=== PATIENT | female | born 1945 | race Caucasian/White ===

== ENCOUNTER 2023-06-21 14:21 | Inpatient (IN) | payer MEDICARE, SELFPAY ==
[2023-06-21] VITALS (11 sets, daily range): BP systolic 106–190; BP diastolic 45–119; BMI 29.8
--- NOTE | 2023-06-21 08:29 | ED.GENMED ---
History of Present Illness
General
Chief Complaint: Breathing Problem
Source: patient
Exam Limitations: none
Time Seen by Provider: 06/21/23 08:15
Nursing documentation reviewed up to this point in time: agreed with
Travel History
Have you had any contact with someone who has COVID-19?: No
Do you have any symptoms of coronavirus? Fever > 100 degrees, chills, cough, shortness of breath, sore throat, loss of taste or smell, muscle aches, or headache?: Yes
Symptoms:: sob
History of Present Illness
History of Present Illness:
77 yo female presents to the emergency department c/o shortness of breath. History of COPD and HOCM. Taking Camzyos for hcm. She complains of feeling fatigued and short of breath. It is worse when she walks.
Past History
Past History
ED Past Medical History: Arrthythmia (Atrial fibrillation), CHF, COPD, GERD, HTN, Valvular disease (Endocarditis) and Other
ED Past Surgical History: Appendectomy, Cardiac and Other
Social History
Tobacco: Non-smoker
Alcohol: None
Drug: None
Review of Systems
Review of Systems
Allergies reviewed?: Yes
All Other Systems: Not applicable
Constitutional: Reports no symptoms
EENT: Reports no symptoms
Respiratory: Reports trouble breathing
Cardiac: Reports no symptoms
ABD/GI: Reports no symptoms
: Reports no symptoms
Musculoskeletal: Reports no symptoms
Skin: Reports no symptoms
Neurological: Reports no symptoms
Endocrine: Reports no symptoms
Hematologic/Lymphatic: Reports no symptoms
Psychiatric: Reports no symptoms
Phy Exam
Physical Exam
Physical Exam:
Physical Exam
General: afebrile
Neck: supple. no meningeal signs. normal posterior pharynx
Heart: s1/s2 regular rate and rhythm, no murmur. equal radial
pulses.
HEENT: Pupils equal round reactive to light, EOMI
Lungs: Mild respiratory distress. Rales at bases bilaterally
Abdomen: normal bowel sounds. not tender. no CVAT
Neuro: alert and oriented. no focal neurological deficits cranial nerves II through XII intact
Skin: no rash
Psychiatric: well kept. interactive and cooperative
Extremities: no edema. no calf tenderness. negative homans. good distal pulses
Scores
Heart Failure Risk
Heart Failure Risk Score: Yes
History of Stroke or TIA: No
History of intubation for respiratory distress: No
Heart rate on ED arrival >/= 110: No
SaO2 <90% on arrival on room air: Yes
HR >/=110 during 3min walk test (or too ill to perform test): Yes
ECG has acute ischemic changes: No
Urea >/=12mmol/L (BUN 33.6mg/dL): No
Serum CO2>/=35mmol/L: No
Troponin I or T elevated to NM Level (0.4mg/dL): No
NT-proBNP >/=5,000ng/L (5,000pg/ml): Yes
HF Risk Score: 4
Admission Status: HIGH RISK 26.1% Consider SNF treatment or admission to hospital
Course
Orders/Labs/Results
Orders:
Orders
06/21/23 08:09
Electrocardiogram (*1) Urgent
Reason for Study: Shortness of Breath
EKG- Treatment ONCE
06/21/23 08:27
Cardiac Monitoring- Treatment ONCE
IV Insert/Care/Rem.- Treatment PRN
Ipratropium/Albuterol Sulfate [Duoneb] 3 ml INHALATION R NOW ONE
06/21/23 08:28
Electrocardiogram (*1) Stat
Reason for Study: Other
Other Reason for Exam: pneumonia
CR Chest - 2 Views Urgent
Comment:
Reason For Exam: short of breath 1 week
06/21/23 08:30
Complete Blood Count/With Diff Urgent
Comprehensive Metabolic Panel Urgent
NT-proBNP Urgent
Troponin I Urgent
06/21/23 11:26
Furosemide [Lasix] 40 mg IV NOW STA
06/21/23 13:48
Admit/Transfer Patient As Directed
Co-Sign Provider:
Level of Care: Inpatient admission
Assign to:: Telemetry
Physician / Group: Brown
Diagnosis: CHF
Reason for Telemetry: Acute Heart Failure
Date to Stop Telemetry: 06/24/23
Time to Stop Telemetry: 11:00
Reason for Hospitalization: see progress note
Expected length of stay greater than two midnights?: Yes
ELOS- Estimated Length of Stay in days: 3
I certify the patient meets the requirements for IP care: Yes
06/21/23 13:50
Code Status As Directed
Resuscitation Status: Full Code
06/24/23 11:00
DC Protocol for Telemetry ONCE
Abnormal Lab Results
06/21/23
08:30
MCHC 32.2 L g/dL
(33.0-37.0)
RDW 14.6 H %
(11.5-14.5)
Absolute Lymphs (auto) 0.5 L 10^3/uL
(1.2-3.4)
Neutrophils % 83.8 H %
(42.2-75.2)
Lymphocytes % 7.4 L %
(20.5-51.1)
BUN 25 H mg/dl
(7-17)
Glucose 125 H mg/dl
(70-99)
06/21/23 08:30
06/21/23 08:30
Vital Signs
Initial and Last Documented VS:
Initial Vital Signs
Temp Pulse Resp BP Pulse Ox
97.9 F 63 18 176/68 94
06/21/23 08:02 06/21/23 08:02 06/21/23 08:02 06/21/23 08:02 06/21/23 08:02
Last Documented Vital Signs
Temp Pulse Resp BP Pulse Ox
97.9 F 65 25 120/45 94
06/21/23 08:02 06/21/23 14:30 06/21/23 14:30 06/21/23 14:00 06/21/23 08:02
*EKG
Interpreted by ED Provider?: Yes
EKG Intrepretation Date: 06/21/23
EKG Intrepretation Time: 08:50
Interpretation: abnormal
Comparison EKG: no changes
Heart Rate: 56
Rate: bradycardiac
Rhythm: sinus
[place]: normal axis
Interval: normal interval
QRS Pattern: normal QRS
Ischemia: non-specific ST changes
*[employer] Interpretation
Rate: normal
Interpretation: normal
Heart Rate: 60
Rhythm: sinus
*Critical Care Note
Total Time (30-74mins, 75-104mins- exclusive of procedures): Not Applicable
Patient Management
Social determinants of health affecting care: Living situation and Strong social support
Discussion with other providers: Hospitalist
Escalation/DeEscalation of care consider admission/obs:
admit indicated
ED Attending Note
-
Portions of this chart may have been created with voice recognition software.� Occasional wrong word or��sound alike� substitutions may have occurred due to the inherent limitations of voice recognition software.
Discharge Plan
Departure
Patient Disposition: Admit
Date of Disposition: 06/21/23
Time of Disposition: 11:25
Admit to: Telemetry
Presentation/result/management discussed w/ accepting MD/DO: Hospitalist
Patient with high blood pressure during this ER visit?: Yes
Condition: Fair
Discharge Problem:
Acute exacerbation of CHF (congestive heart failure), Acute exacerbation of chronic obstructive pulmonary disease
Interventions
Interventions:
*ED COVID-19 Vaccine History Last Done: 06/21/23 08:02
ED- Cardiac Assessment Last Done: 06/21/23 08:37
ED- Pulmonary Assessment Last Done: 06/21/23 08:35
[2023-06-21] MEDS: DUONEB 3 ML INHALATION (08:32)
[2023-06-21 08:48] LABS: % Basophils 0.3 % (0-2); % Eosinophils 0.6 % (0-6); % Immature Granulocytes 0.5 % (0-0.5); % Lymphocytes 7.4 % (20.5-51.1); % Monocytes 7.4 % (1.7-9.3); % Neutrophils 83.8 % (42.2-75.2); Absolute Lymphocytes 0.5 10^3/uL (1.2-3.4); Absolute Monocytes 0.5 10^3/uL (0.1-0.6); Absolute Neutrophils 5.4 10^3/uL (1.4-6.5); Hematocrit 40.7 % (37.0-47.0); Hemoglobin 13.1 g/dL (12.0-16.0); Mean Corp Hgb Conc. 32.2 g/dL (33.0-37.0); Mean Corpuscular Hgb 30.6 pg (27.0-31.0); Mean Corpuscular Volume 95.1 fL (81.0-99.0); Mean Platelet Volume 9.6 fL (7.4-10.4); Nucleated Red Blood Cells % 0 %; Platelet Count 147 10^3/uL (130-400); Red Blood Cell Count 4.28 10^6/uL (4.20-5.40); Red Cell Dist. Width 14.6 % (11.5-14.5); White Blood Cell Count 6.5 10^3/uL (4.8-10.8)
[2023-06-21 08:59] LABS: ALT (SGPT) 20 U/L (0-35); AST (SGOT) 27 U/L (14-36); Albumin 4.5 g/dl (3.5-5.0); Alkaline Phosphatase 104 U/L (38-126); Blood Urea Nitrogen 25 mg/dl (7-17); Calcium 9.7 mg/dl (8.4-10.2); Carbon Dioxide 26 mmol/L (22-30); Chloride 102 mmol/L (98-107); Glucose 125 mg/dl (70-99); Potassium 4.5 mmol/L (3.5-5.1); Sodium 141 mmol/L (135-145); Total Bilirubin 1.2 mg/dl (0.2-1.3); Total Protein 7.4 g/dl (6.3-8.2); eGFR > 60.00
[2023-06-21 09:08] LABS: NT-proBNP 3760 pg/ml; Troponin I 0.027 ng/ml
[2023-06-21] MEDS: LASIX 40 MG IV ×2 (11:35→17:17)
--- NOTE | 2023-06-21 13:58 | HPS.HSE ---
Family Physician
-
Family Physician: Antonieta Clark MD
Chief Complaint
-
Shortness of breath
History of Present Illness
Patient with history of atrial fibrillation, MVR and HOCM on Camzyos.
Camzyos treatments is managed by bike designer Dr. Saul Hall. She has been on it for 6 months. When it was up for renewal it was an issue filling it up and so she did not have it for a month. It was renewed last week and started take it
since Friday of last week.
Over the last 10 days her weight was going up so her bike designer increased her Lasix to twice a day.
Despite that she was having exertional shortness of breath. 2 days ago she also had some palpitations. A week ago with exertion she also had a chest pain which got better with rest.
She has COPD which she takes inhaler therapy but currently no fever, phlegm. No fever or chills. No sore throat.
Chest x-ray suggest CHF and her BNP is up. Patient admitted for CHF exacerbation.
Last month she was in the ER. Electrical cardioversion for her A-fib.
Medical History
Past Medical History
Past Medical History: Reports Arrhythmia (afib), CHF and COPD
Additional Past Medical History:
HOCM
Past Surgical History: Reports Cardiac (MVR)
Social History
Tobacco: Non-smoker
Alcohol: None
Drug: None
Living: With Family
Family History
Family History: Not pertinent
Allergies / Home Medications
Allergies reflects when Allergies were last updated in [employer].
Home Medications with original date entered in [employer]
Allergy/Medication List:
Allergies
Allergy/AdvReac Type Severity Reaction Status Date / Time
epinephrine Allergy tachycardia, Verified 05/13/23 10:09
shaky
irbesartan Allergy Unknown Verified 05/13/23 10:09
Penicillins Allergy Hives Verified 05/13/23 10:09
procaine HCl [From Novocain] Allergy Unknown Verified 05/13/23 10:09
Home Medications
apixaban 5 mg tablet (Eliquis) 5 mg PO BID Blood clot prevention/tx 02/21/20
ascorbic acid (vitamin C) 500 mg tablet (Vitamin C) 1,000 mg PO DAILY Supplement 02/21/20
albuterol sulfate 90 mcg/actuation aerosol inhaler (Ventolin HFA) 2 puff inhalation R QIDPRN PRN shortness of breath, wheezing 07/11/21
furosemide 40 mg tablet 40 mg PO DAILY Fluid retention/Swelling #30 tabs 07/13/21
acetaminophen 500 mg tablet 1,000 mg PO TID 05/27/22
amiodarone 200 mg tablet (Pacerone) 200 mg PO DAILY Arrhythmia 05/27/22
metoprolol tartrate 50 mg tablet 50 mg PO BID 30 days #60 tabs 06/08/22
mavacamten 5 mg capsule (Camzyos) 5 mg PO DAILY 02/14/23
atorvastatin 20 mg tablet (Lipitor) 20 mg PO DAILY 06/21/23
fluticasone 113 mcg-salmeterol 14 mcg/actuation breath activated powdr 1 inh inhalation R BID 06/21/23
Review of Systems
-
A 12 point ROS was completed and negative except as noted: Yes
Physical Exam
Vital Signs
Vital Signs
Temp Pulse Resp BP Pulse Ox
97.9 F 71 20 141/57 94
06/21/23 08:02 06/21/23 12:45 06/21/23 12:45 06/21/23 12:00 06/21/23 08:02
Physical Exam
General: No Apparent Distress
HEENT: Moist mucous membranes
Respiratory: Crackles (Few L>R basal crackles); No Wheezes
Cardiac: S1/S2, Irregular Rhythm and Murmur (systolic of MR); No Tachycardia
GI: Soft
Musculoskeletal: No Edema
Neuro: AO x 3
Psych: Calm
Laboratory Results
-
06/21/23 08:30
06/21/23 08:30
Laboratory Results
Total Bilirubin 1.2 mg/dl (0.2-1.3) 06/21/23 08:30
AST 27 U/L (14-36) 06/21/23 08:30
ALT 20 U/L (0-35) 06/21/23 08:30
Alkaline Phosphatase 104 U/L (38-126) 06/21/23 08:30
Troponin I 0.027 ng/ml 06/21/23 08:30
Data Reviewed
-
Lab Data: Labs Reviewed by me
Impression/Plan
-
Acute CHF decompensation-unclear etiology. Patient has HOCM, MVR and atrial fibrillation. Was off of her Camzyos for HOCM for a month due to prescription refill issues.
Admit to telemetry. Start on IV Lasix and follow weights, and symptom of shortness of breath. She is not hypoxic.
Trend troponins.
Consult cardiology.
Consider repeat echocardiogram.
Paroxysmal Afib - clinically in SR . Follow on telemetry. Continue with amiodarone and beta-viet. Continue anticoagulation.
Full code
--- NOTE | 2023-06-21 15:15 | PTCARENOTE ---
06/21- Patient transferred and oriented to unit without issue. Patient is AAOX3, fully independent, mildly CLAYTON but SATs at 97% on RA, Skin CDI except a fully granulated scab on her R-patella from horseback riding. She currently denies any needs.
[2023-06-21 16:56] LABS: Troponin I 0.031 ng/ml
[2023-06-21] MEDS: TYLENOL 1000 MG PO ×2 (17:16→21:11)
[2023-06-21] MEDS: ADVAIR HFA 115/21 MCG INHALER 2 PUFF INH (18:21)
[2023-06-21] MEDS: ProAIR HFA INHALER 2 PUFF INH (18:28)
[2023-06-21] MEDS: LOPRESSOR 50 MG PO (19:38)
[2023-06-21] MEDS: ELIQUIS 5 MG PO (19:38)
--- NOTE | 2023-06-21 19:47 | CON.CAR ---
Consultation
Consultation Request
Date/Time Consultation Requested: 06/21/2023 at 1400
Date/Time Consultation Performed: 06/21/2023 at 2000
Requesting Provider: Dr. Nba Brown
Performing Provider: Alejandro Posada
Reason for Consultation: CHF/hokum
Medical History
-
History of Present Illness:
Pleasant woman with complex history as outlined below. She has been on mavacamten for about 6 months, initially 5 mg then uptitrated to 10 mg daily with improvement in her symptomatology. In the interval, she underwent a PVI in April and needed
an outpatient cardioversion a few weeks ago. Due to logistic issues, support for mavacamten was not available and she was without mavacamten for about a month. With this she felt more fatigued, probably with some weight gain and shortness of
breath. Furosemide was doubled with some improvement, and finally prior authorization was obtained for mavacamten on Friday. She started 10 mg daily instead of 5 and became abruptly short of breath. She now feels better.
PMH:
PAF, status post PVI 04/2023
HCM, severe concentric LVH, on mavacamten
Chronic HFpEF
Nonobstructive CAD by cardiac catheterization May 2022
Mild aortic stenosis
Bioprosthetic mitral valve replacement 2014
History of endocarditis
Hypertension
Hyperlipidemia
COPD
Past Medical History
Past Medical History: Other (As per HPI)
Past Surgical History: Appendectomy, Cardiac (Bioprosthetic mitral valve replacement 2014) and Orthopedic
Social History
Tobacco: Former Smoker
Alcohol: Daily (1 beer a day)
Drug: None
Personal: Single
Living: Alone
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
Family History
Family History: Reviewed & Not Pertinent
Allergies / Home Medications
Allergy/AdvReac Type Severity Reaction Status Date / Time
epinephrine Allergy tachycardia, Verified 05/13/23 10:09
shaky
irbesartan Allergy Unknown Verified 05/13/23 10:09
Penicillins Allergy Hives Verified 05/13/23 10:09
procaine HCl [From Novocain] Allergy Unknown Verified 05/13/23 10:09
Medication Instructions Recorded Confirmed Type
apixaban 5 mg tablet (Eliquis) 5 mg PO BID Blood clot 02/21/20 06/21/23 History
prevention/tx
ascorbic acid (vitamin C) 500 mg 1,000 mg PO DAILY Supplement 02/21/20 06/21/23 History
tablet (Vitamin C)
albuterol sulfate 90 mcg/actuation 2 puff inhalation R QIDPRN PRN 07/11/21 06/21/23 History
aerosol inhaler (Ventolin HFA) shortness of breath, wheezing
furosemide 40 mg tablet 40 mg PO DAILY Fluid 07/13/21 06/21/23 Rx
retention/Swelling #30 tabs
acetaminophen 500 mg tablet 1,000 mg PO TID Pain 05/27/22 06/21/23 History
amiodarone 200 mg tablet (Pacerone) 200 mg PO DAILY Arrhythmia 05/27/22 06/21/23 History
metoprolol tartrate 50 mg tablet 50 mg PO BID 30 days #60 tabs 06/08/22 06/21/23 Rx
mavacamten 5 mg capsule (Camzyos) 5 mg PO DAILY CARDIOMYOPATHY 02/14/23 06/21/23 History
atorvastatin 20 mg tablet (Lipitor) 20 mg PO DAILY High Cholesterol 06/21/23 06/21/23 History
fluticasone 113 mcg-salmeterol 14 1 inh inhalation R BID 06/21/23 06/21/23 History
mcg/actuation breath activated Lung/Breathing Issues
powdr
Physical Exam
Vital Signs
Temp Pulse Resp BP Pulse Ox
36.8 C 74 16 150/56 97
06/21/23 15:00 06/21/23 18:30 06/21/23 18:30 06/21/23 15:00 06/21/23 15:15
Lab Results
06/21/23 08:30
06/21/23 08:30
Troponin I 0.031 ng/ml 06/21/23 16:09
Ods-B-Riqctumtevs Pept 3760 pg/ml 06/21/23 08:30
Physical Exam
General: No Apparent Distress
HEENT: Other (Poor dentition)
Respiratory: Other (Diminished breath sounds)
Cardiac: Murmur (Loud left ventricular outflow tract murmur)
GI: Non Tender and Non Distended
Musculoskeletal: No Edema
Skin: Warm and Dry
Neuro: AO x 3
Psych: Calm
Impression / Plan
-
Impression:
Acute HFpEF, likely related to rapid reinitiation of mavacamten
PAF, status post PVI 04/2023
HCM, severe concentric LVH, on mavacamten
Chronic HFpEF
Nonobstructive CAD by cardiac catheterization May 2022
Mild aortic stenosis
Bioprosthetic mitral valve replacement 2014
History of endocarditis
Hypertension
Hyperlipidemia
COPD
Plan:
She seems improved having received IV Lasix.
Will place mavacamten on hold at the present time. Continue amiodarone and metoprolol, will consider resumption of mavacamten on Friday or Friday after discussion with Dr. Syed and/or Dr. Sena at the [facility]. Would begin at
5 mg daily, possibly 2.5 mg daily instead of 10 mg.
Follow-up echo has been ordered.
Data Reviewed
-
EKG: Tracing Personally Visualized and interpreted (Sinus rhythm, first-degree AV block, LVH, QRS widening, nonspecific ST and T wave changes)
Radiology: Image Personally Visualized and interpreted ( Chest x-ray mild vascular congestion, small effusion on left)
Labs: Labs Reviewed by me (Hemoglobin 13.1, BUN and creatinine 25 and 0.9, troponin 0.031, proBNP 3760)
[2023-06-21 22:10] LABS: Troponin I 0.038 ng/ml
[2023-06-22] VITALS (7 sets, daily range): BP systolic 90–137; BP diastolic 47–66; BMI 29.0
[2023-06-22 06:19] LABS: Blood Urea Nitrogen 29 mg/dl (7-17); Calcium 8.9 mg/dl (8.4-10.2); Carbon Dioxide 30 mmol/L (22-30); Chloride 101 mmol/L (98-107); Estimated Creatinine Clearance 33 ml/min; Glucose 110 mg/dl (70-99); Potassium 4.4 mmol/L (3.5-5.1); Sodium 137 mmol/L (135-145); Troponin I 0.029 ng/ml; eGFR 42.62
[2023-06-22] MEDS: ADVAIR HFA 115/21 MCG INHALER 2 PUFF INH ×2 (08:26→17:14)
[2023-06-22] MEDS: TYLENOL 1000 MG PO ×3 (09:31→21:26)
[2023-06-22] MEDS: ELIQUIS 5 MG PO ×2 (09:32→19:21)
[2023-06-22] MEDS: VITAMIN C 1000 MG PO (09:32)
[2023-06-22] MEDS: LIPITOR 20 MG PO (09:32)
[2023-06-22] MEDS: LASIX IV ×2 (09:46→12:54)
[2023-06-22] MEDS: PACERONE 200 MG PO (09:46)
[2023-06-22] MEDS: LOPRESSOR PO (09:46)
--- NOTE | 2023-06-22 11:05 | W.PN.HOSP.TC ---
Today's Communication/Plan
-
Hold Lasix today
BMP in AM.
Await echocardiogram.
Assessment / Plan
Assessment / Plan
Acute CHF decompensation-unclear etiology.� Patient has HOCM, MVR and atrial fibrillation. Was off of her Camzyos for HOCM for a month due to prescription refill issues.Went back on 10mg dose on since friday ? cause of her CHF.
Started on IV Lasix with good drop in weight. She has not been 53 pounds which is lower than his weight.
Blood pressure is also on the lower side along with elevation in creatinine
Hold diuretics for today. If the blood pressure permits continue with beta-viet.
Repeat BMP in AM.
Cardiology following.
Echo pending.
Paroxysmal Afib - in SR .� Follow on telemetry.� Continue with amiodarone and beta-viet.� Continue anticoagulation.
Full code
Anticipated Discharge: Within 24 hours
Subjective/Interval History
-
Date of Service: June 22, 2023
Not SOB
No CP
No dizziness
Objective Data
-
Labs:
Laboratory Results
06/22/23
05:27
Sodium 137
Potassium 4.4
Chloride 101
Carbon Dioxide 30
BUN 29 H
Creatinine 1.3 H
Glucose 110 H
Calcium 8.9
Vital Signs:
Vital Signs
Temp Pulse Resp BP Pulse Ox
98.6 F 73 16 90/66 96
06/22/23 07:20 06/22/23 08:29 06/22/23 08:29 06/22/23 07:20 06/22/23 08:29
I&O
06/21/23 06/22/23 06/23/23
06:59 06:59 06:59
Intake Total 960 / 960
Balance 960 / 960
Review of Systems
-
Constitutional: Denies Fever
EENT: Denies Sore Throat
Respiratory: Denies Cough
Abdomen/GI: Denies Nausea or Vomiting
Physical Exam
-
General: No Apparent Distress
HEENT: Moist Mucous Membranes
Respiratory: Clear to Auscultation and Non Labored Respirations; Negative Accessory Resp Muscle Use
Cardiac: Regular Rhythm, S1/S2 and Murmur
GI: Soft
Musculoskeletal: No Edema
Neuro: AO x 3
Data Reviewed
-
Labs: Labs Reviewed by me
[2023-06-22] MEDS: ProAIR HFA INHALER 2 PUFF INH (17:14)
--- NOTE | 2023-06-22 19:04 | W.PN.CARDCBS ---
Today's Communication / Plan
-
Lasix on hold
Mavacamten on hold
Echo tomorrow
If stable discharged with appointment with Yahaira on Friday
Impression / Plan
-
Impression:
Acute HFpEF, likely related to rapid reinitiation of mavacamten
PAF, status post PVI 04/2023
HCM, severe concentric LVH, on mavacamten
Chronic HFpEF
Nonobstructive CAD by cardiac catheterization May 2022
Mild aortic stenosis
Bioprosthetic mitral valve replacement 2014
History of endocarditis
Hypertension
Hyperlipidemia
COPD
Plan:
She looks much better, but creatinine up to 1.3. Furosemide currently on hold.
Await echocardiogram. She request that we contact Dr. Pat at [facility]. She says that special measurements will be needed for the echo tomorrow.
Likely resume mavacamten in the near term.
She has a follow-up appointment with Yahaira on Friday, which we should probably keep.
If she looks good, probably could be discharged tomorrow..
Progress Note - Teacher Visually Impaired
Subjective
Date of Service: June 22, 2023:,
She feels much better.
Allergies epinephrine, irbesartan, penicillin, procaine
Outpatient meds albuterol, Meredith Golden on 200 mg a day, atorvastatin 20 mg a day, mavacamten 10 mg a day, Eliquis 5 mg twice daily, furosemide 40 mg twice daily, metoprolol tartrate 50 mg twice daily
Current medications: Apixaban 5 mg twice daily, atorvastatin 20 mg daily, amiodarone 200 mg daily, metoprolol tartrate 50 mg twice daily, furosemide 40 mg IV twice daily, now on hold
PMH/PSH/FH/SH: Reviewed
Review of systems: Negative except as above
BUN and creatinine are 29 and 1.3, Creatinine had been 0.9, potassium is 4.4
Objective
Labs:
06/21/23 08:30
06/22/23 05:27
Labs
Hgb 13.1 g/dL (12.0-16.0) 06/21/23 08:30
Hct 40.7 % (37.0-47.0) 06/21/23 08:30
Plt Count 147 10^3/uL (130-400) 06/21/23 08:30
Sodium 137 mmol/L (135-145) 06/22/23 05:27
Potassium 4.4 mmol/L (3.5-5.1) 06/22/23 05:27
BUN 29 mg/dl (7-17) H 06/22/23 05:27
Creatinine 1.3 mg/dL (0.6-1.0) H 06/22/23 05:27
Glucose 110 mg/dl (70-99) H 06/22/23 05:27
Troponins
06/21/23 06/21/23 06/21/23
08:30 16:09 21:39
Troponin I 0.027 0.031 0.038 H*
06/22/23
05:27
Troponin I 0.029
Vital Signs and I&O:
Vital Signs
Temp Pulse Resp BP Pulse Ox
36.9 C 75 16 135/57 93
06/22/23 15:08 06/22/23 17:17 06/22/23 17:17 06/22/23 15:08 06/22/23 15:08
Vital Signs
Temp Pulse Resp BP Pulse Ox
36.9 C 75 16 135/57 93
06/22/23 15:08 06/22/23 17:17 06/22/23 17:17 06/22/23 15:08 06/22/23 15:08
Intake & Output
06/20/23 06/21/23 06/22/23 06/23/23
07:59 07:59 07:59 07:59
Intake Total 960 / 960 1080 / 1080
Balance 960 / 960 1080 / 1080
Physical Exam
Physical Exam
135/57, pulse 75, weight is 69.6 kg, if accurate down 1.8 kg, intake and output inaccurate, head neck exam unremarkable, breath sounds mildly diminished, loud systolic murmur across precordium JVD okay, abdomen benign extremities without much edema
[2023-06-22] MEDS: LOPRESSOR 50 MG PO (19:21)
[2023-06-23 03:34] VITALS: BP 104/47
[2023-06-23 05:15] VITALS: BMI 29.1
[2023-06-23 07:30] LABS: Blood Urea Nitrogen 26 mg/dl (7-17); Carbon Dioxide 25 mmol/L (22-30); Chloride 105 mmol/L (98-107); Estimated Creatinine Clearance 48 ml/min; Glucose 120 mg/dl (70-99); Potassium 4.4 mmol/L (3.5-5.1); Sodium 136 mmol/L (135-145); eGFR > 60.00
[2023-06-23 07:50] VITALS: BP 163/55
[2023-06-23 08:04] VITALS: BP 163/55
[2023-06-23] MEDS: ADVAIR HFA 115/21 MCG INHALER 2 PUFF INH (08:36)
[2023-06-23] MEDS: LIPITOR 20 MG PO (08:37)
[2023-06-23] MEDS: LOPRESSOR 50 MG PO (08:37)
[2023-06-23] MEDS: PACERONE 200 MG PO (08:37)
[2023-06-23] MEDS: VITAMIN C 1000 MG PO (08:37)
[2023-06-23] MEDS: TYLENOL 1000 MG PO (08:38)
[2023-06-23] MEDS: ELIQUIS 5 MG PO (08:38)
[2023-06-23] MEDS: ProAIR HFA INHALER 2 PUFF INH (08:39)
--- NOTE | 2023-06-23 10:39 | W.PN.CARDCBS ---
Addendum entered and electronically signed by Gaston Perea DO 06/23/23 14:22:
I saw and examined the patient.
The Clock Maker's note was reviewed and I agree with the note.
Comment:
Plan:
Reviewed echo with her:
Jun 23 2023:
�Normal left ventricular size and systolic function. No regional wall motion
�abnormalities are seen. LV EF is 70-75% by visual assessment.�Mild concentric left ventricular hypertrophy.
�Mid cavity gradient is 76/29mmHg. With valsalva mid cavity gradient is�89/35mmHg.�Biatrial enlargement
�Bioprosthetic mitral valve. Mean gradient is 8mmHg. No mitral regurgitation is�seen.
�Thickened aortic valve with restricted leaflet motion. Moderate aortic
�stenosis.� Peak/mean gradients are 67/37mmHg. The valve area by continuity
�equation is 1.3cm sq, using� a LVOT of 2.0cm. Mild aortic regurgitation. Some
�of the transvalvular gradient likely secondary to severe LVH.
�Mild pulmonic regurgitation.
�Compared to the previous echo from May 2022, mean mitral valve gradient was 5
�mg,� there was peak and mean AV gradients of 63/37 mmHg a degree of which was
�felt secondary to dynamic obstruction from LVH.
Stable for d/c from cardiac standpoint.
Outpt follow up arranged.
Dr Pat office working on lower dose Mavacamten 5 mg daily
Reviewed with primary service.
�
Original Note:
Today's Communication / Plan
-
Await echo results.
Resume PO lasix
BMP in 1 week
Follow up arranged
Called Dr. Pat's office and they will work on new prescription for mavacamten 5mg daily.
Impression / Plan
-
PCP: Antonieta Clark MD
CDY: Yahaira Evans MD
Impression:
Acute on chronic HFpEF, likely related to rapid reinitiation of mavacamten
Paroxysmal atrial fibrillation
s/p PVI 04/2023
HCM, severe concentric LVH, on mavacamten
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
Mild
Bioprosthetic mitral valve replacement 2014
h/o endocarditis
Hypertension
Hyperlipidemia
COPD
YUE 06/07/2022: EF 70-75%, severe cLVH, well seated bioprosthetic MV, mild MS, mild , mild AR
Echo 06/23/2023: Study completed, report pending
Plan:
-Presented with evidence of acute HFpEF in the setting of rapid reinitiation of mavacamten
-Diuresed with IV lasix and improved symptomatically. Weight down to 154lbs, down at least 3lbs this admission.
-Creat bumped to 1.3 on 06/22 and lasix held. Creat improved to 0.9 today.
-Resume PO lasix 40mg daily today. Check BMP in 1 week.
-Echo pending. Await results and if stable, would resume mavacamten at lower dose 5mg daily.
-This is prescribed by her [place] [facility] Doctoral Researcher, Dr. Pat. Called the office to help facilitate prescription for lower dose, they are aware and will work on sending new Rx.
-Remains in SR. HR stable on amiodarone and lopressor.
-Continue Eliquis for anticoagulation
-Follow up arranged for later this week.
HPI: Pleasant woman with complex history as outlined below.� She has been on mavacamten for about 6 months, initially 5 mg then uptitrated to 10 mg daily with improvement in her symptomatology.� In the interval, she underwent a PVI in April and
needed an outpatient cardioversion a few weeks ago.� Due to logistic issues, support for mavacamten was not available and she was without mavacamten for about a month.� With this she felt more fatigued, probably with some weight gain and shortness
of breath.� Furosemide was doubled with some improvement, and finally prior authorization was obtained for mavacamten on Friday.� She started 10 mg daily instead of 5 and became abruptly short of breath.� She now feels better.
Progress Note - Post Doctoral Researcher
Subjective
Date of Service: June 23, 2023
Breathing improved. No chest pain or SOB.
Objective
Labs:
06/21/23 08:30
06/23/23 06:07
Labs
Hgb 13.1 g/dL (12.0-16.0) 06/21/23 08:30
Hct 40.7 % (37.0-47.0) 06/21/23 08:30
Plt Count 147 10^3/uL (130-400) 06/21/23 08:30
Sodium 136 mmol/L (135-145) 06/23/23 06:07
Potassium 4.4 mmol/L (3.5-5.1) 06/23/23 06:07
BUN 26 mg/dl (7-17) H 06/23/23 06:07
Creatinine 0.9 mg/dL (0.6-1.0) 06/23/23 06:07
Glucose 120 mg/dl (70-99) H 06/23/23 06:07
Troponins
06/21/23 06/21/23 06/21/23
08:30 16:09 21:39
Troponin I 0.027 0.031 0.038 H*
06/22/23
05:27
Troponin I 0.029
Vital Signs and I&O:
Vital Signs
Temp Pulse Resp BP Pulse Ox
98.5 F 76 16 163/55 96
06/23/23 07:50 06/23/23 08:42 06/23/23 08:42 06/23/23 07:50 06/23/23 08:42
Vital Signs
Temp Pulse Resp BP Pulse Ox
98.5 F 76 16 163/55 96
06/23/23 07:50 06/23/23 08:42 06/23/23 08:42 06/23/23 07:50 06/23/23 08:42
Intake & Output
06/21/23 06/22/23 06/23/23 06/24/23
06:59 06:59 06:59 06:59
Intake Total 960 / 960 1320 / 1320
Balance 960 / 960 1320 / 1320
Physical Exam
Physical Exam
GEN: No distress, awake, alert, oriented x3
HEENT: supple, anicteric, mmm
LUNGS: CTA b/l, no wheezes/rales
CV: Reg, S1/S2, 2/6 syst murmur
ABD: soft, BS+, NT/ND
EXT: No clubbing, cyanosis, or edema
NEURO: Gross non-focal
SKIN: Warm, dry, no rash
[2023-06-23 11:25] VITALS: BP 144/50
--- NOTE | 2023-06-23 12:48 | W.PN.HOSP.TC ---
Today's Communication/Plan
-
cards recs
echo
Assessment / Plan
Assessment / Plan
Acute CHF decompensation-unclear etiology.� Patient has HOCM, MVR and atrial fibrillation. Was off of her Camzyos for HOCM for a month due to prescription refill issues.
Started on IV Lasix with good drop in weight.
Lasix held and cr now downtrended
Blood pressure is also on the lower side
Hold diuretics for today. If the blood pressure permits continue with beta-viet.
Cardiology following.
Echo pending.
on 40mg po laix home dose
BUTCH- ?due to over diuresis-cr downtrended to 0.9.
Paroxysmal Afib - in SR .� Follow on telemetry.� Continue with amiodarone and beta-viet.� Continue anticoagulation.
HLD-Cont statin
Full code
Anticipated Discharge: Today
Subjective/Interval History
-
Date of Service: June 23, 2023
states feeling better
denies cp or sob
Objective Data
-
Labs:
Laboratory Results
06/23/23
06:07
Sodium 136
Potassium 4.4
Chloride 105
Carbon Dioxide 25
BUN 26 H
Creatinine 0.9
Glucose 120 H
Calcium 9.0
Vital Signs:
Vital Signs
Temp Pulse Resp BP Pulse Ox
98 F 60 18 144/50 90
06/23/23 11:25 06/23/23 11:25 06/23/23 11:25 06/23/23 11:25 06/23/23 11:25
I&O
06/22/23 06/23/23 06/24/23
06:59 06:59 06:59
Intake Total 960 / 960 1320 / 1320
Balance 960 / 960 1320 / 1320
Physical Exam
-
General: Well Developed and No Apparent Distress
HEENT: Normocephalic, Atraumatic and Moist Mucous Membranes
Respiratory: Clear to Auscultation
Cardiac: Regular Rhythm and S1/S2; Negative Murmur, Rub or Gallop
GI: Soft, Nontender, Nondistended and Normal Bowel Sounds; Negative Organomegaly
Rectal: Deferred by Provider
Musculoskeletal: No Clubbing, No Cyanosis and No Edema
Skin: Negative Rash
Neuro: Awake, AO x 3 and Nonfocal/Grossly Intact
Psych: Calm
--- NOTE | 2023-06-23 14:22 | W.DCSUMMARY ---
Discharge Summary
Discharge Data
Date of Admission: 06/21/23
Date of Discharge: 06/23/23
-
Pending Results: No
Hospital Course
77-year female past medical history of chronic HFpEF, atrial fibrillation, hypertrophic cardiomyopathy CAD D, mild , bioprosthetic mitral valve, hyperlipidemia, COPD is present with shortness of breath. Patient was found to be in acute
hyperlucent patient and restarted on her intravenous Lasix. With the diuretics patient with significant improvement in symptomology. Patient weight down trended. Patient started to feel better. Patient also was off Camzyo due to refill issue and
restarted. patient underwent echocardiogram Normal left ventricular size and systolic function. No regional wall motion abnormalities are seen. LV ejection fraction is 70-75% by visual assessment. Mild concentric left ventricular hypertrophy. Mid
cavity gradient is 76/29mmHg. With valsalva mid cavity gradient is 89/35mmHg. Biatrial enlargement �Bioprosthetic mitral valve. Mean gradient is 8mmHg. No mitral regurgitation is seen. Thickened aortic valve with restricted leaflet motion. Moderate
aortic stenosis.� Peak/mean gradients are 67/37mmHg. The valve area by continuity equation is 1.3cm sq, using� a LVOT of 2.0cm. Mild aortic regurgitation. Some of the transvalvular gradient likely secondary to severe LVH. Mild pulmonic
regurgitation. Compared to the previous echo from May 2022, mean mitral valve gradient was 5 mg,� there was peak and mean AV gradients of 63/37 mmHg a degree of which was felt secondary to dynamic obstruction from LVH. Patient creatinine up trended
and IV diuretics were discontinued. Patient creatinine improved and was back to baseline. Patient be discharged back home with home regimen of p.o. Lasix. Patient already has an appointment with a traveling crane operator on 06/25/2023.
Discharge Plan
-
Patient Disposition: Home (Routine Discharge)
Discharge Diagnosis/Procedures: Acute on chronic HFpEF in setting of hypertrophic cardiomyopathy and valvular disease
Condition: Fair
Diet: 2 Gram Sodium and Restrict fluids to 48 oz
Activity: With assistance
Driving Restrictions: As prior to admission
Blood Work: BMP in 1 week with primary doctor or traveling crane operator.
Instructions: *[facility] Heart Failure Instructions
Referrals:
Cindy Sawant PA-C [Specified Professional Personl] - 06/25/23 12:40 pm (You have a follow up visit with Dr. Syed's PA, Cindy Sawant, at the [facility] office. Please call with questions. )
Antonieta Clark MD [Family Provider] - in less than 1 week
Prescriptions:
Continued
ascorbic acid (vitamin C) [Vitamin C] 500 MG tablet
1,000 mg PO DAILY
Eliquis 5 MG tablet
5 mg PO BID
albuterol sulfate [Ventolin HFA] 90 MCG/PUFF HFA aerosol inhaler
2 puff inhalation R QIDPRN PRN (Reason: shortness of breath, wheezing)
furosemide 40 MG tablet
40 mg PO DAILY Qty: 30 11RF
amiodarone [Pacerone] 200 MG tablet
200 mg PO DAILY
acetaminophen 500 mg Tablet
1,000 mg PO TID
metoprolol tartrate 50 mg tablet
50 mg PO BID 30 Days Qty: 60 0RF
Camzyos 5 mg Capsule
5 mg PO DAILY
atorvastatin [Lipitor] 20 mg Tablet
20 mg PO DAILY
fluticasone propion-salmeterol 113-14 mcg/actuation aerosol powdr breath activated
1 inh INHALATION R BID
Discharge Orders:
Discharge Patient (As Directed); Ordered 06/23/23
Ordered By: Jorge Fox
--- NOTE | 2023-06-23 14:56 | CM ---
Patient lives alone in a 1st floor apartment with 8 steps to enter, patient is independent with adl's and ambulation, no dme, patient has a prescription plan and patient uses [facility].
PCP; Dr. Clark
Plan; Home no needs.
--- NOTE | 2023-06-24 12:04 | W.HF.CON ---
Heart Failure
- LV Function
Left ventricular function study result: LV Ejection fraction >40%
Ejection Fraction Percentage: 70-75
- ARNI
Patient already on ARNI: No
Heart Failure ARNI Not Indicated: LV Ejection Fraction >/= 40%
- ACEI/ARB
Patient already on ACEI/ARB: No
Heart Failure ACEI/ARB Not Indicated: LV Ejection Fraction > 40%
- Beta Markus
Patient already on Evidence Based Beta Markus: No
Heart Failure Evidence Based Beta Markus Not Indicated: LV Ejection Fraction > 40%
- Mineralocorticord Receptor Antagonist
Patient already on MRA: No
Heart Failure MRA Not Indicated: LV Ejection Fraction > 40%
- SGLT-2 Inhibitor
Patient already on SGLT-2 Inhibitor: No
Heart Failure SGLT-2 Inhibitor Not Indicated: LV Ejection Fraction >40%
- Afib Anticoagulation
Patient already on Anticoagulation for Afib: Yes
- NYHA CHF Classification
NYHA CHF Classification Level: Class III - Symptoms w/ min exertion, interferes w/ nml daily activity
- ACC/AHA Stage
ACC/AHA Stage: Stage C: Symptomatic Heart Failure
== END 2023-06-23 15:51 | disposition home or self-care (01) | DRG 291 ==
LOC: 4 WEST ACU 14:21
PROVIDERS: Nurse Practitioner Family; ADMITTING PHYSICIAN Internal Medicine; ATTENDING PHYSICIAN Hospitalist; CONSULT PHYSICIAN Internal Medicine Cardiovascular Disease; EMERGENCY PHYSICIAN Emergency Medicine; FAMILY PHYSICIAN Family Medicine
DX: I11.0 Hypertensive heart disease with heart failure (principal); I50.33 Acute on chronic diastolic (congestive) heart failure; I48.0 Paroxysmal atrial fibrillation; I42.1 Obstructive hypertrophic cardiomyopathy; Z79.01 Long term (current) use of anticoagulants; I25.10 Atherosclerotic heart disease of native coronary artery without angina pectoris; Z95.3 Presence of xenogenic heart valve; Z86.79 Personal history of other diseases of the circulatory system; Z87.891 Personal history of nicotine dependence; I42.2 Other hypertrophic cardiomyopathy; E78.5 Hyperlipidemia, unspecified; J44.9 Chronic obstructive pulmonary disease, unspecified
CPT/HCPCS: 71046; 80048; 80053; 83880; 84484; 85025; 93005; 93306; 94640; 94760; 96374; 99285

== ENCOUNTER 2023-10-30 09:38 | Emergency (ER) | payer MEDICARE, SELFPAY ==
[2023-10-30 09:41] VITALS: BP 155/65
--- NOTE | 2023-10-30 10:01 | ED.GENMED ---
History of Present Illness
General
Chief Complaint: Breathing Problem
Time Seen by Provider: 10/30/23 09:49
History of Present Illness
History of Present Illness:
77 yo female w/ hx of HCM and COPD presents for evaluation of SOB x 2-3 days. Primarily exertional dyspnea. No chest pain, fevers, chills, or sweats. Denies coughing. 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 She is also concerned for acute on chronic left knee pain, she states that the shortness of breath is predominantly due to the knee pain
Past History
Past History
ED Past Medical History: Arrthythmia (Atrial fibrillation), CHF, COPD, GERD, HTN, Valvular disease (Endocarditis) and Other
ED Past Surgical History: Appendectomy, Cardiac and Other
Social History
Tobacco: Non-smoker
Alcohol: None
Drug: None
Review of Systems
Review of Systems
Allergies reviewed?: Yes
All Other Systems: ROS reviewed and negative except as documented in HPI and ROS
Phy Exam
Physical Exam
Physical Exam:
GEN: Well appearing, NAD, WDWN
Eyes: PERRLA, EOMs intact, no scleral icterus
HENT: NCAT, oral mucosa moist
Lungs: CTAB, no wheezes, rales, rhonchi, normal chest wall excursion
Cardiac: RRR, 3/6 systolic murmur (known )
Abdomen: S, NT, ND, NABS, no masses or hepatosplenomegaly
Neuro: AO x 3
MSK: Severe valgus deformity of the left knee, mild effusion
Skin: No rashes, petechiae. Normal color, no pallor or jaundice.
Psych: Calm, cooperative, proper hygiene
Scores
Heart Failure Risk
Heart Failure Risk Score: Yes
History of Stroke or TIA: No
History of intubation for respiratory distress: No
Heart rate on ED arrival >/= 110: No
SaO2 <90% on arrival on room air: Yes
HR >/=110 during 3min walk test (or too ill to perform test): No
ECG has acute ischemic changes: No
Urea >/=12mmol/L (BUN 33.6mg/dL): No
Serum CO2>/=35mmol/L: No
Troponin I or T elevated to HI Level (0.4mg/dL): No
NT-proBNP >/=5,000ng/L (5,000pg/ml): No
HF Risk Score: 1
Admission Status: MEDIUM RISK 5.1% Consider observation or discharge to home with homecare & f/u visit to PCP/Statistics Professor, or SNF for treatment
Course
Orders/Labs/Results
Orders:
Orders
10/30/23 09:58
Electrocardiogram (*1) Urgent
Reason for Study: Shortness of Breath
EKG- Treatment ONCE
CR Chest - 2 Views Urgent
Comment:
Reason For Exam: SOB
10/30/23 10:04
Complete Blood Count/With Diff Urgent
Comprehensive Metabolic Panel Urgent
NT-proBNP Urgent
Troponin I Urgent
10/30/23 10:42
CR Knee - Left 4 Or More View* Urgent
Comment:
Reason For Exam: knee pain
10/30/23 11:34
Furosemide [Lasix] 20 mg IV NOW STA
10/30/23 11:45
Triamcinolone Acetonide [Kenalog-10] 10 mg INTRAARTIC NOW STA
Abnormal Lab Results
10/30/23
10:04
Hct 48.2 H %
(37.0-47.0)
MCHC 31.3 L g/dL
(33.0-37.0)
Absolute Lymphs (auto) 0.7 L 10^3/uL
(1.2-3.4)
Absolute Monos (auto) 0.7 H 10^3/uL
(0.1-0.6)
Neutrophils % 81.5 H %
(42.2-75.2)
Lymphocytes % 8.5 L %
(20.5-51.1)
BUN 21 H mg/dl
(7-17)
10/30/23 10:04
10/30/23 10:04
Vital Signs
Initial and Last Documented VS:
Initial Vital Signs
Temp Pulse Resp BP Pulse Ox
98.7 F 62 18 155/65 95
10/30/23 09:41 10/30/23 09:41 10/30/23 09:41 10/30/23 09:41 10/30/23 09:41
Last Documented Vital Signs
Temp Pulse Resp BP Pulse Ox
98.7 F 56 12 142/52 96
10/30/23 09:41 10/30/23 11:52 10/30/23 11:45 10/30/23 11:52 10/30/23 11:45
MDM/Problems Addressed
MDM/Problems Addressed:
Patient does not appear clinically volume overloaded however does have some increased work of breathing with exertion. Chest x-ray does show cardiomegaly with question of increased vascular congestion although BNP is not as elevated as previous lab
values. I offer the patient admission given her tenuous medical history with hypertrophic cardiomyopathy and aortic stenosis however she states to me 'I would have to be to stay in the hospital'. Given that she does not want to stay we will
trial her on a short course of increased diuresis, will have her take 60 mg once daily for the next 3 days before returning to her normal dose. Will refer her back to cardiology through the outpatient heart failure hotline. In regards to the knee
it appears to be acute on chronic due to severe arthritic changes of the left knee. She is desperate for any degree of pain relief cannot take NSAIDs due to Eliquis use thus I was able to provide her with a left knee intra-articular triamcinolone
injection which she tolerated well. Recommend outpatient orthopedic follow-up for this. Strongly encouraged to return the emergency department for any worsening shortness of breath
Comment
Comment:
EKG independently interpreted by me shows a sinus bradycardia at a rate of [address] changes concerning for ischemia
*Critical Care Note
Total Time (30-74mins, 75-104mins- exclusive of procedures): Not Applicable
ED Attending Note
-
Portions of this chart may have been created with voice recognition software.� Occasional wrong word or��sound alike� substitutions may have occurred due to the inherent limitations of voice recognition software.
Discharge Plan
Departure
Patient Disposition: Home (Routine Discharge)
Date of Disposition: 10/30/23
Time of Disposition: 12:04
Patient with high blood pressure during this ER visit?: No
Discharge Problem:
Acute heart failure with preserved ejection fraction (HFpEF), Arthritis of knee, left
Instructions: *[facility] Heart Failure Instructions
Prescriptions:
No Action
ascorbic acid (vitamin C) [Vitamin C] 500 MG tablet
1,000 mg PO DAILY
Eliquis 5 MG tablet
5 mg PO BID
albuterol sulfate [Ventolin HFA] 90 MCG/PUFF HFA aerosol inhaler
2 puff inhalation R QIDPRN PRN (Reason: shortness of breath, wheezing)
furosemide 40 MG tablet
40 mg PO DAILY Qty: 30 11RF
amiodarone [Pacerone] 200 MG tablet
200 mg PO DAILY
acetaminophen 500 mg Tablet
1,000 mg PO TID
metoprolol tartrate 50 mg tablet
50 mg PO BID 30 Days Qty: 60 0RF
Camzyos 5 mg Capsule
5 mg PO DAILY
atorvastatin [Lipitor] 20 mg Tablet
20 mg PO DAILY
fluticasone propion-salmeterol 113-14 mcg/actuation aerosol powdr breath activated
1 inh INHALATION R BID
Referrals:
Antonieta Clark MD [Family Provider] -
Andre Mcintosh MD [Active] -
Activity Restrictions/Additional Instructions:
Follow up as soon as possible with cardiology
Contact Orthopedics for follow up regarding the left knee
Interventions
Interventions:
*Risk Screen - Suicide Last Done: 10/30/23 09:43
*General Assessment Last Done: 10/30/23 09:43
*Neglect/Abuse Screening Last Done: 10/30/23 09:43
ED- Fall Risk Assessment Last Done: 10/30/23 10:20
*ED COVID-19 Vaccine History Last Done: 10/30/23 09:51
*Nursing Disposition Last Done: 10/30/23 12:13
ED- Cardiac Assessment Last Done: 10/30/23 10:20
ED- Pulmonary Assessment Last Done: 10/30/23 10:20
Discharge Date and Time
Discharge Date/Time: 10/30/23 12:14
Print Language: BURKIN[place]
[2023-10-30 10:03] VITALS: BP 135/49
[2023-10-30 10:13] LABS: % Basophils 0.3 % (0-2); % Eosinophils 0.9 % (0-6); % Immature Granulocytes 0.5 % (0-0.5); % Lymphocytes 8.5 % (20.5-51.1); % Monocytes 8.3 % (1.7-9.3); % Neutrophils 81.5 % (42.2-75.2); Absolute Eosinophils 0.1 10^3/uL (0-0.7); Absolute Lymphocytes 0.7 10^3/uL (1.2-3.4); Absolute Monocytes 0.7 10^3/uL (0.1-0.6); Absolute Neutrophils 6.4 10^3/uL (1.4-6.5); Hematocrit 48.2 % (37.0-47.0); Hemoglobin 15.1 g/dL (12.0-16.0); Mean Corp Hgb Conc. 31.3 g/dL (33.0-37.0); Mean Corpuscular Hgb 29.5 pg (27.0-31.0); Mean Corpuscular Volume 94.3 fL (81.0-99.0); Mean Platelet Volume 8.7 fL (7.4-10.4); Nucleated Red Blood Cells % 0 %; Platelet Count 150 10^3/uL (130-400); Red Blood Cell Count 5.11 10^6/uL (4.20-5.40); Red Cell Dist. Width 13.8 % (11.5-14.5); White Blood Cell Count 7.8 10^3/uL (4.8-10.8)
[2023-10-30 10:27] LABS: ALT (SGPT) 21 U/L (0-35); AST (SGOT) 28 U/L (14-36); Albumin 4.7 g/dl (3.5-5.0); Alkaline Phosphatase 90 U/L (38-126); Blood Urea Nitrogen 21 mg/dl (7-17); Calcium 9.4 mg/dl (8.4-10.2); Carbon Dioxide 25 mmol/L (22-30); Chloride 106 mmol/L (98-107); Glucose 95 mg/dl (70-99); Potassium 4.5 mmol/L (3.5-5.1); Sodium 141 mmol/L (135-145); Total Protein 7.3 g/dl (6.3-8.2); eGFR > 60.00
[2023-10-30 10:37] LABS: NT-proBNP 2530 pg/ml; Troponin I 0.018 ng/ml
[2023-10-30 10:56] VITALS: BP 153/55
[2023-10-30 11:00] VITALS: BP 149/52
[2023-10-30] MEDS: LASIX 20 MG IV (11:52)
[2023-10-30] MEDS: KENALOG-10 10 MG INTRAARTIC (11:57)
== END 2023-10-30 12:14 | disposition home or self-care (01) ==
LOC: EMR 09:38
PROVIDERS: Physician Assistant; EMERGENCY PHYSICIAN Emergency Medicine; FAMILY PHYSICIAN Family Medicine
DX: I11.0 Hypertensive heart disease with heart failure (principal); I50.9 Heart failure, unspecified; M25.562 Pain in left knee; M17.12 Unilateral primary osteoarthritis, left knee; I42.2 Other hypertrophic cardiomyopathy; I35.0 Nonrheumatic aortic (valve) stenosis; I48.91 Unspecified atrial fibrillation; I38 Endocarditis, valve unspecified; K21.9 Gastro-esophageal reflux disease without esophagitis; J44.9 Chronic obstructive pulmonary disease, unspecified; Z88.0 Allergy status to penicillin; Z88.8 Allergy status to other drugs, medicaments and biological substances
CPT/HCPCS: 99285; 96374; 71046; 73564; 80053; 83880; 84484; 85025; 93005

== ENCOUNTER 2023-11-13 13:23 | Emergency (ER) | payer MEDICARE, SELFPAY ==
[2023-11-13] VITALS (14 sets, daily range): BP systolic 117–173; BP diastolic 47–73; BMI 29.5
--- NOTE | 2023-11-13 15:37 | ED.GENMED ---
History of Present Illness
General
Chief Complaint: Heart Rate Problem
Time Seen by Provider: 11/13/23 14:34
History of Present Illness
History of Present Illness:
77-year-old female with history of A-fib on Eliquis and hypertrophic cardiomyopathy presenting to the emergency department for concern of atrial fibrillation. Patient is placed back and today felt that she went back into A-fib. She notes she is
short of breath, difficulty taking a deep breath in. Notes that when she has any symptoms previously, has gotten cardioverted. Denies any associated chest pain. Does note palpitations. Reports compliance with her Eliquis and other medications.
Denies fever or cough. Denies abdominal pain or GI symptoms. She follows with [facility]. Patient denies additional acute medical complaints
Past History
Past History
ED Past Medical History: Arrthythmia (Atrial fibrillation), CHF, COPD, GERD, HTN, Valvular disease (Endocarditis) and Other
ED Past Surgical History: Appendectomy, Cardiac and Other
Social History
Tobacco: Non-smoker
Alcohol: None
Drug: None
Phy Exam
Physical Exam
Physical Exam:
GENERAL: Alert , in no apparent distress
EYE: pupils equal and reactive
NECK: Supple, no significant adenopathy.
ENT: o/p clr, mmm.
CARDIAC: Irregularly irregular rhythm, rate controlled.
LUNGS: Clear breath sounds bilaterally, no acute respiratory distress, no wheezes/rales/rhonchi
ABDOMEN: Soft, without focal tenderness
NEUROLOGICAL: Alert and oriented, no focal neuro deficits
SKIN: Warm and dry, skin intact.
MUSCULOSKELETAL: No edema, well perfused.
PSYCH: Normal and appropriate interaction.
Course
Orders/Labs/Results
Orders:
Orders
11/13/23 13:28
Electrocardiogram (*1) Urgent
Reason for Study: Palpitations
EKG- Treatment ONCE
11/13/23 15:20
CR Chest - 2 Views Urgent
Comment:
Reason For Exam: palpitations
11/13/23 16:05
Complete Blood Count/With Diff Urgent
Comprehensive Metabolic Panel Urgent
NT-proBNP Urgent
PTT Urgent
Prothrombin Time Urgent
Troponin I Urgent
11/13/23 16:46
ASA Classification Routine
Propofol [Diprivan] 100 mg IV NOW STA
11/13/23 17:11
Electrocardiogram (*1) Urgent
Reason for Study: Atrial Fibrillation
EKG- Treatment ONCE
Abnormal Lab Results
11/13/23
16:05
Hct 48.2 H %
(37.0-47.0)
MCHC 31.3 L g/dL
(33.0-37.0)
Absolute Lymphs (auto) 0.9 L 10^3/uL
(1.2-3.4)
Absolute Monos (auto) 0.8 H 10^3/uL
(0.1-0.6)
Lymphocytes % 12.3 L %
(20.5-51.1)
Monocytes % 10.6 H %
(1.7-9.3)
PT 15.2 H Sec
(11.4-14.6)
BUN 26 H mg/dl
(7-17)
11/13/23 16:05
11/13/23 16:05
Vital Signs
Initial and Last Documented VS:
Initial Vital Signs
Temp Pulse Resp BP Pulse Ox
98.9 F 70 18 138/70 92
11/13/23 13:25 11/13/23 13:25 11/13/23 13:25 11/13/23 13:25 11/13/23 13:25
Last Documented Vital Signs
Temp Pulse Resp BP Pulse Ox
98.7 F 65 13 173/61 95
11/13/23 17:37 11/13/23 17:50 11/13/23 17:50 11/13/23 17:45 11/13/23 17:45
Procedures
Moderate Sedation
ASA Risk Score: Class III
Chart and allergies reviewed: Yes
Consent for anesthesia obtained: Yes
Time out completed (validating right patient & procedure): Yes
Moderate Sedation Start Time(when first medication is given): 17:08
History of difficult intubation: No
Airway free of obstruction: Yes
Patient has a gag reflex: Yes
Patient is able to open mouth: Yes
Patient has no dentures: Yes
Patient has no loose teeth: Yes
Medication administered by Provider during Moderate Sedation: IV Propofol (mg)
Total dose administered: 60
Time drug administered: 17:07
Moderate Sedation Procedure End Time: 17:20
Cardioversion
Indication:: Afib
Performed by:: Deirdre Jaimes DO
Synchronized?: Yes
Energy Used: 200 joules
Number of attempts: 1
Successful?: Yes
Complications: hypoxia, resolved with O2
ASA Risk Score: Class III
Any reaction or bad outcome to prior sedation/anesthesia?: No history of a reaction
Sedation level to be attained: moderate
Chart and allergies reviewed: Yes
Patient reassessed prior to sedation: Yes
Time out completed at (validating right patient & procedure): 17:06
History of difficult intubation: No
Airway free of obstruction: Yes
Patient has a gag reflex: Yes
Patient is able to open mouth: Yes
Patient has no dentures: Yes
Patient has no loose teeth: Yes
Medication administered by Provider during Moderate Sedation: IV Propofol (mg)
Total dose administered: 60
Time drug administered: 17:07
Start Time: 17:08
Stop Time: 17:20
MDM/Problems Addressed
MDM/Problems Addressed:
77-year-old female with history of A-fib on Eliquis presenting for concern of atrial fibrillation. Vital signs are normal.
On exam, patient well-appearing, resting comfortably, no acute distress. Patient is currently rate controlled. EKG is consistent with A-fib, known history. She notes that she is currently in sinus rhythm, had an ablation back in April, follows
with [facility]. Patient is requesting cardioversion given symptomatic with her A-fib. Notes compliance with her Eliquis. She reports she has been cardioverted in the past. Will screen with laboratory analysis and plan for
cardioversion. Will consent for procedure.
16:45 -Labs relatively unremarkable. Patient with elevation of BNP, however appears consistent with prior values. Chest x-ray does show some pulmonary vascular congestion, however unchanged from prior. Advised her to continue to take her lasix as
directed. Patient consented for procedure. Explained that this procedure is elective given her hemodynamic stability, rate controlled. She would like to proceed with the procedure despite risks which were detail including cardiac arrest and
respiratory depression.
17:20 - Procedure performed. EKG is now sinus rhythm. Please see procedure note. Patient reports she is already feeling mucj better. Will continue to monitor until patient has appropriately ambulated. Patient will require follow-up with her
hand rigger. Patient is agreeable and understands plan. She will have someone come pick her up.
*EKG
Interpreted by ED Provider?: Yes
EKG Intrepretation Date: 11/13/23
EKG Intrepretation Time: 14:00
Interpretation: abnormal
Comparison EKG: changes noted
Heart Rate: 82
Rate: normal
Rhythm: a-fib
[place]: normal axis
Interval: long QT
QRS Pattern: normal QRS
Ischemia: non-specific ST changes
*Critical Care Note
Total Time (30-74mins, 75-104mins- exclusive of procedures): Not Applicable
ED Attending Note
-
Portions of this chart may have been created with voice recognition software.� Occasional wrong word or��sound alike� substitutions may have occurred due to the inherent limitations of voice recognition software.
Discharge Plan
Departure
Patient Disposition: Home (Routine Discharge)
Date of Disposition: 11/13/23
Time of Disposition: 16:00
Patient with high blood pressure during this ER visit?: No
Condition: Good
Discharge Problem:
Atrial fibrillation, Encounter for cardioversion procedure
Instructions: Atrial Fibrillation (DC), Cardioversion (DC), MODERATE SEDATION ADULT
Prescriptions:
No Action
ascorbic acid (vitamin C) [Vitamin C] 500 MG tablet
1,000 mg PO DAILY
Eliquis 5 MG tablet
5 mg PO BID
albuterol sulfate [Ventolin HFA] 90 MCG/PUFF HFA aerosol inhaler
2 puff inhalation R QIDPRN PRN (Reason: shortness of breath, wheezing)
furosemide 40 MG tablet
40 mg PO DAILY Qty: 30 11RF
amiodarone [Pacerone] 200 MG tablet
200 mg PO DAILY
acetaminophen 500 mg Tablet
1,000 mg PO TID
metoprolol tartrate 50 mg tablet
50 mg PO BID 30 Days Qty: 60 0RF
Camzyos 5 mg Capsule
5 mg PO DAILY
atorvastatin [Lipitor] 20 mg Tablet
20 mg PO DAILY
fluticasone propion-salmeterol 113-14 mcg/actuation aerosol powdr breath activated
1 inh INHALATION R BID
Referrals:
Yahaira Evans MD [Active] -
Antonieta Clark MD [Family Provider] -
Activity Restrictions/Additional Instructions:
Please follow-up with your hand rigger. Return to the emergency department with any development of chest pain, difficulty breathing, weakness or lightheadedness, fever, abdominal pain with vomiting and inability to tolerate food or liquid by mouth
with concern for dehydration
Interventions
Interventions:
*Risk Screen - Suicide Last Done: 11/13/23 16:17
*General Assessment Last Done: 11/13/23 16:17
*Neglect/Abuse Screening Last Done: 11/13/23 16:17
ED- Fall Risk Assessment Last Done: 11/13/23 16:17
*ED COVID-19 Vaccine History Last Done: 11/13/23 13:29
*Nursing Disposition Last Done: 11/13/23 18:07
ED- Cardiac Assessment Last Done: 11/13/23 16:12
ED- Pulmonary Assessment Last Done: 11/13/23 16:12
Discharge Date and Time
Discharge Date/Time: 11/13/23 18:08
Print Language: KUWAITI
[2023-11-13 16:21] LABS: % Basophils 0.4 % (0-2); % Eosinophils 1.1 % (0-6); % Immature Granulocytes 0.4 % (0-0.5); % Lymphocytes 12.3 % (20.5-51.1); % Monocytes 10.6 % (1.7-9.3); % Neutrophils 75.2 % (42.2-75.2); Absolute Eosinophils 0.1 10^3/uL (0-0.7); Absolute Lymphocytes 0.9 10^3/uL (1.2-3.4); Absolute Monocytes 0.8 10^3/uL (0.1-0.6); Absolute Neutrophils 5.5 10^3/uL (1.4-6.5); Hematocrit 48.2 % (37.0-47.0); Hemoglobin 15.1 g/dL (12.0-16.0); Mean Corp Hgb Conc. 31.3 g/dL (33.0-37.0); Mean Corpuscular Volume 95.8 fL (81.0-99.0); Mean Platelet Volume 9.1 fL (7.4-10.4); Nucleated Red Blood Cells % 0 %; Platelet Count 142 10^3/uL (130-400); Red Blood Cell Count 5.03 10^6/uL (4.20-5.40); Red Cell Dist. Width 14.4 % (11.5-14.5); White Blood Cell Count 7.3 10^3/uL (4.8-10.8)
[2023-11-13 16:28] LABS: INR 1.19; PT 15.2 Sec (11.4-14.6)
[2023-11-13 16:29] LABS: APTT 31.8 Sec (23.4-35.0)
[2023-11-13 16:33] LABS: ALT (SGPT) 16 U/L (0-35); AST (SGOT) 22 U/L (14-36); Albumin 4.5 g/dl (3.5-5.0); Alkaline Phosphatase 101 U/L (38-126); Blood Urea Nitrogen 26 mg/dl (7-17); Calcium 9.5 mg/dl (8.4-10.2); Carbon Dioxide 23 mmol/L (22-30); Chloride 106 mmol/L (98-107); Glucose 85 mg/dl (70-99); Potassium 4.5 mmol/L (3.5-5.1); Sodium 139 mmol/L (135-145); Total Bilirubin 0.7 mg/dl (0.2-1.3); Total Protein 6.8 g/dl (6.3-8.2); eGFR > 60.00
[2023-11-13 16:42] LABS: NT-proBNP 5700 pg/ml; Troponin I 0.016 ng/ml
[2023-11-13] MEDS: DIPRIVAN 100 MG IV (17:07)
--- NOTE | 2023-11-13 17:19 | EDRN ---
ED cardioversion
170 time out performed w/ Dr. Jaimes & Lili, RN
170 60mg of propofol given by Dr. Jaimes
170 pt cardioverted w/ 200J
170 pt O2 saturation dipped down to 78%, pt temporarily bagged by Dr. Jaimes with successful recovery to O2 in the 90's
172 procedure end time
== END 2023-11-13 18:08 | disposition home or self-care (01) ==
LOC: EMR 13:23
PROVIDERS: EMERGENCY PHYSICIAN Student in an Organized Health Care Education/Training Program; FAMILY PHYSICIAN Family Medicine
DX: I48.91 Unspecified atrial fibrillation (principal); I42.2 Other hypertrophic cardiomyopathy
CPT/HCPCS: 92960; 99285; 96374; 99152; 71046; 80053; 83880; 84484; 85025; 85610; 85730; 93005

== ENCOUNTER 2023-12-06 11:10 | Emergency (ER) | payer MEDICARE, SELFPAY ==
[2023-12-06 11:21] VITALS: BP 168/72
[2023-12-06 11:52] LABS: White Blood Cell Count 6.5 10^3/uL (4.8-10.8)
[2023-12-06 11:53] LABS: % Basophils 0.3 % (0-2); % Eosinophils 1.2 % (0-6); % Immature Granulocytes 0.3 % (0-0.5); % Lymphocytes 10.5 % (20.5-51.1); % Monocytes 9.9 % (1.7-9.3); % Neutrophils 77.8 % (42.2-75.2); Absolute Eosinophils 0.1 10^3/uL (0-0.7); Absolute Lymphocytes 0.7 10^3/uL (1.2-3.4); Absolute Monocytes 0.6 10^3/uL (0.1-0.6); Hemoglobin 14.5 g/dL (12.0-16.0); Mean Corp Hgb Conc. 33.7 g/dL (33.0-37.0); Mean Corpuscular Hgb 31.1 pg (27.0-31.0); Mean Corpuscular Volume 92.3 fL (81.0-99.0); Nucleated Red Blood Cells % 0 %; Platelet Count 163 10^3/uL (130-400); Red Blood Cell Count 4.66 10^6/uL (4.20-5.40); Red Cell Dist. Width 14.4 % (11.5-14.5)
[2023-12-06 12:00] VITALS: BP 144/81
[2023-12-06 12:07] LABS: ALT (SGPT) 20 U/L (0-35); AST (SGOT) 26 U/L (14-36); Albumin 4.7 g/dl (3.5-5.0); Alkaline Phosphatase 92 U/L (38-126); Blood Urea Nitrogen 24 mg/dl (7-17); Calcium 9.5 mg/dl (8.4-10.2); Carbon Dioxide 27 mmol/L (22-30); Chloride 106 mmol/L (98-107); Glucose 110 mg/dl (70-99); Magnesium 2.2 mg/dl (1.6-2.3); Potassium 4.3 mmol/L (3.5-5.1); Sodium 140 mmol/L (135-145); Total Protein 7.2 g/dl (6.3-8.2); eGFR > 60.00
[2023-12-06 12:09] LABS: NT-proBNP 2260 pg/ml; Troponin I 0.014 ng/ml
[2023-12-06 12:36] LABS: TSH 0.43 uIU/ml (0.47-4.68)
--- NOTE | 2023-12-06 12:44 | ED.GENMED ---
History of Present Illness
General
Chief Complaint: Heart Rate Problem
Source: patient and records
Exam Limitations: none
Time Seen by Provider: 12/06/23 12:32
Nursing documentation reviewed up to this point in time: agreed with
History of Present Illness
History of Present Illness:
78-year-old female with past medical history of hypertension, hyperlipidemia, COPD, atrial fibrillation on Eliquis who presents to the emergency room for evaluation of irregular heartbeat in setting of recent fatigue, shortness of breath, chest
pain. Patient was notably seen in this emergency room for atrial fibrillation symptomatic on November 12. She was cardioverted in the ER. Patient reports that she had been doing well except over the past few days she has noticed some increased fatigue
and some shortness of breath with activities. She says she has had occasional mild chest discomfort. She says that yesterday she checked her heart monitor and it read out as 'irregular heartbeat' which is typically accurate when she is in A-fib.
She says that when she checked it later it said that her heart rate was 'regular' again. This morning she was again symptomatic and monitor told her that she had an irregular heartbeat and so she decided come in to be assessed. She has not had any
coughing. She has not had any fevers or chills. She has not had any swelling or pain in the legs. She has not had any other issues. She follows with cardiology Dr. Yahaira Evans, but also sees specialist for HCM at [facility] (
[facility]
Past History
Past History
ED Past Medical History: Arrthythmia (Atrial fibrillation), CHF, COPD, GERD, HTN, Valvular disease (Endocarditis) and Other
ED Past Surgical History: Appendectomy, Cardiac and Other
Social History
Tobacco: Non-smoker
Alcohol: None
Drug: None
Review of Systems
Review of Systems
All Other Systems: ROS reviewed and negative except as documented in HPI and ROS
Constitutional: Reports fatigue; Denies fever or chills
Respiratory: Reports trouble breathing; Denies cough
Cardiac: Reports chest pain; Denies diaphoresis or palpitations
ABD/GI: Denies abdominal pain, nausea or vomiting
Musculoskeletal: Denies edema
Neurological: Denies dizzy or headache
Phy Exam
Physical Exam
Physical Exam:
General: Awake, alert, oriented x3; no acute distress
Head: Normocephalic, atraumatic
Eyes: Conjunctiva normal
Throat: Airway intact, handling secretions
Neck: Trachea midline, no JVD
Lungs: Clear to auscultation bilaterally, no wheezing, rales, rhonchi
Heart: Regular rate and rhythm, no murmurs, gallops, or rubs
Abd: Soft, non distended, nontender
Neuro: Cranial nerves grossly intact, speech fluid
Skin: no rash
Extremities: No edema in extremities, equal pulses in all extremities
Scores
Heart Failure Risk
Heart Failure Risk Score: Yes
History of Stroke or TIA: No
History of intubation for respiratory distress: No
Heart rate on ED arrival >/= 110: No
SaO2 <90% on arrival on room air: No
HR >/=110 during 3min walk test (or too ill to perform test): No
ECG has acute ischemic changes: No
Urea >/=12mmol/L (BUN 33.6mg/dL): No
Serum CO2>/=35mmol/L: No
Troponin I or T elevated to MS Level (0.4mg/dL): No
NT-proBNP >/=5,000ng/L (5,000pg/ml): No
HF Risk Score: 0
Admission Status: LOW RISK 2.8% Consider discharge to home with f/u visit to PCP/Residential Interior Designer
Heart Score for Chest Pain Patients
STEMI patient?: No
History: Slightly or Non-Suspicious
ECG: Normal
Age: >/= 65 years
Risk Factors: >/= 3 Risk Factors or History of CAD
Troponin: </= Normal Limit
Heart Score for Chest Pain Patients: 4
Heart Score Risk: 20.3% MACE over next 6 weeks
Withdrawal Assessment of Alcohol
Withdrawal Assessment Completed?: Not applicable
Course
Orders/Labs/Results
Orders:
Orders
12/06/23 11:23
ECG [Electrocardiogram (*1)] Urgent
Reason for Study: Shortness of Breath
12/06/23 11:24
EKG- Treatment ONCE
12/06/23 11:36
BNP [NT-proBNP] Urgent
Complete Blood Count/With Diff Urgent
Comprehensive Metabolic Panel Urgent
Magnesium Urgent
TSH Urgent
Troponin I Urgent
12/06/23 12:44
CR Chest - 2 Views Urgent
Comment:
Reason For Exam: sob
12/06/23 13:39
Troponin I Urgent
12/06/23 14:51
Furosemide [Lasix] 40 mg IV NOW STA
Abnormal Lab Results
12/06/23
11:36
MCH 31.1 H pg
(27.0-31.0)
Absolute Lymphs (auto) 0.7 L 10^3/uL
(1.2-3.4)
Neutrophils % 77.8 H %
(42.2-75.2)
Lymphocytes % 10.5 L %
(20.5-51.1)
Monocytes % 9.9 H %
(1.7-9.3)
BUN 24 H mg/dl
(7-17)
Glucose 110 H mg/dl
(70-99)
TSH 0.43 L uIU/ml
(0.47-4.68)
12/06/23 11:36
12/06/23 11:36
Vital Signs
Initial and Last Documented VS:
Initial Vital Signs
Temp Pulse Resp BP Pulse Ox
36.7 C 59 20 168/72 95
12/06/23 11:21 12/06/23 11:21 12/06/23 11:21 12/06/23 11:21 12/06/23 11:21
Last Documented Vital Signs
Temp Pulse Resp BP Pulse Ox
36.7 C 59 20 168/72 95
12/06/23 11:21 12/06/23 11:21 12/06/23 11:21 12/06/23 11:21 12/06/23 11:21
MDM/Problems Addressed
Differential Diagnosis Includes:
Symptomatic A-fib, ACS, CHF, COPD exacerbation, anemia
MDM/Problems Addressed:
78-year-old female presents for evaluation of mild shortness of breath and chest pain over the past few days consistent with prior A-fib symptoms; she says that she has a heart monitor at home and told her she had an irregular heartbeat yesterday
and today and thinks she may be going in and out of A-fib. Hypertensive but otherwise normal vitals. Physical exam as above. EKG here shows a sinus rhythm. Check labs including a CBC and a CMP and troponins. She has no edema or signs of overt
CHF will check a proBNP and a chest x-ray. Very low clinical suspicion for PE and patient is on Eliquis making this diagnosis much less likely�no indication for further testing for PE in my judgment. Will monitor closely reassess after the above.
Initial labs reviewed: CBC, CMP no clinically significant abnormal arteries. Initial troponin negative, repeat pending. proBNP was elevated but in the absence of other signs of acute CHF. Awaiting chest x-ray.
Repeat troponin negative. Chest x-ray did show some mild pulmonary edema elevated proBNP suspect CHF likely driving her increased shortness of breath�intermittent A-fib could be contributing. She is in sinus rhythm now. Her pulse ox is normal,
respiratory rate is normal. Heart rate is in the 60s. No clear indication for admission to the hospital at this point. She takes Lasix 40 mg daily. I called cardiology to discuss the case�recommended giving dose of 40 mg IV Lasix here, having
her double her Lasix tomorrow and having her call cardiology office on Friday for expedited appointment. Recommended outpatient repeat BMP in 3 days. Monitoring of vital signs and weight at home. I had a long discussion with the patient and she
feels comfortable with this plan. Spoke to her about return precautions and all questions answered.
Chronic conditions affecting care:
A-fib, COPD
Acute Exacerbation and/or Progression of Chronic Illness:
Acutely hypertensive
Acute Exacerbation and/or Progression of Chronic Illness: HTN
*Radiology
Radiology exam reviewed: preliminary read by ED provider and radiology read reviewed
*Pulse Oximetry
Patient hypoxic: no
*EKG
Interpreted by ED Provider?: Yes
Heart Rate: 60
Rate: normal
Rhythm: sinus
[place]: normal axis
Interval: first degree heart block and long QT
QRS Pattern: normal QRS
Ischemia: no ischemia
*Critical Care Note
Total Time (30-74mins, 75-104mins- exclusive of procedures): Not Applicable
Data Reviewed
Review of Other/Old Records Reveals: Labs and Records
Source: patient and records
Patient Management
Discussion with other providers: Building Repair Maintenance Supervisor (Discussed with cardiology)
Escalation/DeEscalation of care consider admission/obs:
Shared decision making�discharged with close outpatient follow-up plan
ED Attending Note
-
Portions of this chart may have been created with voice recognition software.� Occasional wrong word or��sound alike� substitutions may have occurred due to the inherent limitations of voice recognition software.
Discharge Plan
Departure
Patient Disposition: Home (Routine Discharge)
Date of Disposition: 12/06/23
Time of Disposition: 14:51
Patient with high blood pressure during this ER visit?: Yes
Discharge Problem:
CHF (congestive heart failure), Irregular heart rhythm
Instructions: *[facility] Heart Failure Instructions
Prescriptions:
No Action
ascorbic acid (vitamin C) [Vitamin C] 500 MG tablet
1,000 mg PO DAILY
Eliquis 5 MG tablet
5 mg PO BID
albuterol sulfate [Ventolin HFA] 90 MCG/PUFF HFA aerosol inhaler
2 puff inhalation R QIDPRN PRN (Reason: shortness of breath, wheezing)
furosemide 40 MG tablet
40 mg PO DAILY Qty: 30 11RF
amiodarone [Pacerone] 200 MG tablet
200 mg PO DAILY
acetaminophen 500 mg Tablet
1,000 mg PO TID
metoprolol tartrate 50 mg tablet
50 mg PO BID 30 Days Qty: 60 0RF
Camzyos 5 mg Capsule
5 mg PO DAILY
atorvastatin [Lipitor] 20 mg Tablet
20 mg PO DAILY
fluticasone propion-salmeterol 113-14 mcg/actuation aerosol powdr breath activated
1 inh INHALATION R BID
Referrals:
Yahaira Evans MD [Active] - Call in 1-3 days for appt (Call Friday as discussed)
Antonieta Clark MD [Family Provider] -
Activity Restrictions/Additional Instructions:
You were seen in the emergency room with irregular heart rate and shortness of breath. You were found to have mild heart failure here. After discussion with cardiology we gave you an extra dose of your diuretic here and they recommended that you
take your diuretic twice tomorrow instead of once. You should have repeat blood work done in 3 days. You should monitor your heart rate and blood pressure as well as your weight�if you have increased heart rate or blood pressure or if you are
noticing increased weight, or if your symptoms are worsening you should return to the emergency room immediately. Otherwise you should call the cardiology office Friday and they will see you for an appointment this week.
Thank you for visiting the Emergency Department at [facility].
1. Please schedule a follow up appointment as directed. Call first thing tomorrow morning to make an appointment.
2. If indicated, please take your medications as instructed and indicated on discharge paperwork.
3. If any of your symptoms do not improve, or persist, or become more severe within 6-12 hours, please return to the emergency department for further care.
4. Please return to the emergency department if you develop a headache, neck pain/stiffness, fever greater than 100.4F, chest pain, shortness of breath, persistent nausea, vomiting, slurred speech, difficulty walking, numbness/tingling, weakness,
signs of infection or any other symptoms that are worrisome to you.
Please call [phone] if you have any questions.
Interventions
Interventions:
*Risk Screen - Suicide Last Done: 12/06/23 11:21
*General Assessment Last Done: 12/06/23 11:21
*Neglect/Abuse Screening Last Done: 12/06/23 11:21
Discharge Date and Time
Print Language: MAC[place]
[2023-12-06 12:52] VITALS: BMI 29.2
[2023-12-06 14:00] VITALS: BP 147/80
[2023-12-06 14:09] LABS: Troponin I 0.016 ng/ml
[2023-12-06] MEDS: LASIX 40 MG IV (15:03)
== END 2023-12-06 19:34 | disposition home or self-care (01) ==
LOC: EMR 11:10
PROVIDERS: Emergency Medicine; EMERGENCY PHYSICIAN Emergency Medicine; FAMILY PHYSICIAN Family Medicine
DX: R53.83 Other fatigue (principal); R07.89 Other chest pain; R06.02 Shortness of breath; I11.0 Hypertensive heart disease with heart failure; I50.9 Heart failure, unspecified; I49.9 Cardiac arrhythmia, unspecified; I44.0 Atrioventricular block, first degree; I45.81 Long QT syndrome; I48.91 Unspecified atrial fibrillation; J44.9 Chronic obstructive pulmonary disease, unspecified; E78.5 Hyperlipidemia, unspecified; K21.9 Gastro-esophageal reflux disease without esophagitis; Z79.899 Other long term (current) drug therapy; Z79.01 Long term (current) use of anticoagulants; Z88.0 Allergy status to penicillin; Z88.8 Allergy status to other drugs, medicaments and biological substances
CPT/HCPCS: 99284; 96374; 71046; 80053; 83735; 83880; 84443; 84484; 85025; 93005

== ENCOUNTER → 2024-04-05 11:46 | Outpatient (REF) | payer MEDICARE, SELFPAY | LOC: RAD 11:46 | PROVIDERS: ATTENDING PHYSICIAN Internal Medicine Cardiovascular Disease; FAMILY PHYSICIAN Family Medicine | DX: I42.2 Other hypertrophic cardiomyopathy (principal); I27.20 Pulmonary hypertension, unspecified; I27.82 Chronic pulmonary embolism | CPT/HCPCS: 71046; 78582; A9540; A9567 ==

== ENCOUNTER 2024-06-10 14:36 | Inpatient (IN) | payer MEDICARE, SELFPAY ==
[2024-06-10] VITALS (7 sets, daily range): BP systolic 93–173; BP diastolic 52–91; BMI 29.5; BMI 28.0; BMI 28.1
[2024-06-10 11:33] LABS: ALT (SGPT) 18 U/L (0-35); AST (SGOT) 25 U/L (14-36); Albumin 4.8 g/dl (3.5-5.0); Alkaline Phosphatase 90 U/L (38-126); Blood Urea Nitrogen 24 mg/dl (7-17); Calcium 9.1 mg/dl (8.4-10.2); Carbon Dioxide 26 mmol/L (22-30); Chloride 103 mmol/L (98-107); Glucose 111 mg/dl (70-99); Potassium 4.6 mmol/L (3.5-5.1); Sodium 140 mmol/L (135-145); Total Bilirubin 1.2 mg/dl (0.2-1.3); Total Protein 7.1 g/dl (6.3-8.2)
[2024-06-10 11:39] LABS: % Basophils 0.4 % (0-2); % Eosinophils 0.7 % (0-6); % Immature Granulocytes 0.6 % (0-0.5); % Lymphocytes 9.4 % (20.5-51.1); % Monocytes 10.9 % (1.7-9.3); Absolute Eosinophils 0.1 10^3/uL (0-0.7); Absolute Lymphocytes 0.7 10^3/uL (1.2-3.4); Absolute Monocytes 0.8 10^3/uL (0.1-0.6); Absolute Neutrophils 5.4 10^3/uL (1.4-6.5); Hematocrit 46.1 % (37.0-47.0); Hemoglobin 14.7 g/dL (12.0-16.0); Mean Corp Hgb Conc. 31.9 g/dL (33.0-37.0); Mean Corpuscular Hgb 30.4 pg (27.0-31.0); Mean Corpuscular Volume 95.2 fL (81.0-99.0); Mean Platelet Volume 9.5 fL (7.4-10.4); Nucleated Red Blood Cells % 0 %; Platelet Count 155 10^3/uL (130-400); Red Blood Cell Count 4.84 10^6/uL (4.20-5.40); Red Cell Dist. Width 13.7 % (11.5-14.5); White Blood Cell Count 6.9 10^3/uL (4.8-10.8)
--- NOTE | 2024-06-10 11:41 | ED.GENMED ---
History of Present Illness
General
Chief Complaint: Chest Pain
Source: patient
Exam Limitations: none
Time Seen by Provider: 06/10/24 11:26
Nursing documentation reviewed up to this point in time: agreed with
History of Present Illness
History of Present Illness:
78-year-old female past medical history of paroxysmal A-fib hypertension hyperlipidemia. Currently on Eliquis amiodarone as well as a new medication called Camzyos for heart failure. Presenting to the emergency department today with concerns of
significant worsening shortness of breath and exertional chest pain over the past week. Also intermittent palpitations. Exercise tolerance has been decreasing. She increased her dose of the new medication 1 week ago. This is when the symptoms
seem to have worsened.
Past History
Past History
ED Past Medical History: Arrthythmia (Atrial fibrillation), CHF, COPD, GERD, HTN, Valvular disease (Endocarditis) and Other
ED Past Surgical History: Appendectomy, Cardiac and Other
Social History
Tobacco: Non-smoker
Alcohol: None
Drug: None
Review of Systems
Review of Systems
Allergies reviewed?: Yes
All Other Systems: ROS reviewed and negative except as documented in HPI and ROS
Phy Exam
Physical Exam
Physical Exam:
GENERAL: Alert , in no apparent distress
EYE: pupils equal and reactive
NECK: Supple, no significant adenopathy.
ENT: o/p clr, mmm.
CARDIAC: Regular rate and rhythm .
LUNGS: Clear breath sounds bilaterally, no acute respiratory distress, no wheezes/rales/rhonchi
ABDOMEN: Soft, without focal tenderness, no r/g, no cvat
NEUROLOGICAL: Alert and oriented, no focal neuro deficits
SKIN: Warm and dry, skin intact.
MUSCULOSKELETAL: No edema, well perfused.
PSYCH: Normal and appropriate interaction.
Scores
Heart Score for Chest Pain Patients
STEMI patient?: Not applicable
Course
Orders/Labs/Results
Orders:
Orders
06/10/24 10:41
EKG [Electrocardiogram (*1)] Urgent
Reason for Study: Chest Pain
EKG- Treatment ONCE
06/10/24 10:54
Complete Blood Count/With Diff Urgent
Comprehensive Metabolic Panel Urgent
NT-proBNP Urgent
Troponin I Urgent
06/10/24 11:41
Chest [CR Chest - 2 Views ] Urgent
Comment:
Reason For Exam: sob
06/10/24 13:07
Furosemide [Lasix] 40 mg IV ONCE ONE
06/10/24 14:00
CARDIOLOGY CONSULT Routine
Consulting Provider: Yahaira Evans
Was physician already notified: Yes
Reason for consult: exertional cp, sob
06/10/24 14:01
Echo 2D MMode Color/Doppler Routine
Reason for Study: sob
Cardiology Consult: Yahaira Evans
06/10/24 14:20
Admit/Transfer Patient As Directed
Co-Sign Provider:
Level of Care: Inpatient admission
Assign to:: Telemetry
Physician / Group: sourav edward
Diagnosis: exertional dyspnea conc woren EF, exertional cp conc acs
Reason for Telemetry: Arrhythmia
Date to Stop Telemetry: 06/13/24
Time to Stop Telemetry: 11:00
Reason for Hospitalization: exertional dyspnea conc woren EF, exertional cp conc acs
Expected length of stay greater than two midnights?: Yes
ELOS- Estimated Length of Stay in days: 4
I certify the patient meets the requirements for IP care: Yes
Code Status As Directed
Resuscitation Status: Do not resuscitate
Reached after discussion with pt or family/Healthcare POA: Yes
Based on pt advanced directive or healthcare POA form: Yes
Decision communicated with: Per patient
DNR Bracelet Application ONCE
06/10/24 14:24
PRN Pain Medication Management As Directed
May give lesser potent ordered pain med per pt: Yes
preference::
Protocol:: Medication orders for pain may be administered in a
manner that supports deferring to patient preference
when the pt is:
- Requesting an ordered lesser potent pain medication.
Least to most potent pain medications are defined
as: acetaminophen < NSAID < tramadol < opioids
(morphine, oxycodone, hydromorphone).
- Requesting a lesser dose of the same medication IF
ORDERED.
- Requesting a less intrusive route of administration
if both routes are prescribed by the provider (PO <
IV).
06/10/24 14:30
COVID-19 Antigen Urgent
Source: Nasal Swab
Troponin I Urgent
Influenza A+B Rapid Molecular Urgent
LACI Source: Nasal Swab
Specimen Description:
06/13/24 11:00
DC Protocol for Telemetry ONCE
Abnormal Lab Results
06/10/24
10:54
MCHC 31.9 L g/dL
(33.0-37.0)
Absolute Lymphs (auto) 0.7 L 10^3/uL
(1.2-3.4)
Absolute Monos (auto) 0.8 H 10^3/uL
(0.1-0.6)
Immature Gran % 0.6 H %
(0-0.5)
Neutrophils % 78.0 H %
(42.2-75.2)
Lymphocytes % 9.4 L %
(20.5-51.1)
Monocytes % 10.9 H %
(1.7-9.3)
BUN 24 H mg/dl
(7-17)
Glucose 111 H mg/dl
(70-99)
06/10/24 10:54
06/10/24 10:54
Vital Signs
Initial and Last Documented VS:
Initial Vital Signs
Temp Pulse Resp BP Pulse Ox
97.8 F 73 16 137/91 95
06/10/24 10:44 06/10/24 10:44 06/10/24 10:44 06/10/24 10:44 06/10/24 10:44
Last Documented Vital Signs
Temp Pulse Resp BP Pulse Ox
97.8 F 73 16 173/61 95
06/10/24 10:44 06/10/24 14:15 06/10/24 10:44 06/10/24 14:15 06/10/24 11:53
MDM/Problems Addressed
MDM/Problems Addressed:
78-year-old female presenting to the emergency department today with concerns of exertional shortness of breath chest pain palpitations worsening over the past week. This did seem to coincide with increasing dose of new medication. Here patient
was walking very briefly in the room with pulse ox immediately dropping to the mid 80s with significant tachypnea and respiratory distress. This improved after she sat back down. Plan to admit considering there is evidence of heart failure at this
point. Return precautions given.
*Critical Care Note
Total Time (30-74mins, 75-104mins- exclusive of procedures): Not Applicable
ED Attending Note
-
Portions of this chart may have been created with voice recognition software.� Occasional wrong word or��sound alike� substitutions may have occurred due to the inherent limitations of voice recognition software.
Discharge Plan
Departure
Patient Disposition: Admit
Date of Disposition: 06/10/24
Time of Disposition: 14:50
Admit to: Med/Surg and Telemetry
Admit to doctor: Bel
Presentation/result/management discussed w/ accepting MD/DO: Hospitalist
Patient with high blood pressure during this ER visit?: No
Condition: Fair
Covid-19: Not Applicable
Discharge Problem:
Heart failure
Interventions
Interventions:
*Risk Screen - Suicide Last Done: 06/10/24 10:47
*Neglect/Abuse Screening Last Done: 06/10/24 10:47
ED- Fall Risk Assessment Last Done: 06/10/24 11:53
*ED COVID-19 Vaccine History Last Done: 06/10/24 11:53
ED- Cardiac Assessment Last Done: 06/10/24 11:53
[2024-06-10 11:42] LABS: NT-proBNP 3630 pg/ml; Troponin I < 0.012 ng/ml
[2024-06-10 12:01] LABS: Estimated Creatinine Clearance 53 ml/min; eGFR > 60.00
--- NOTE | 2024-06-10 13:23 | HPS.HSE ---
Family Physician
-
Family Physician: Antonieta Clark MD
Chief Complaint
-
Shortness of breath, [place], chest pain with deep breath, diaphoresis with exertion
History of Present Illness
78-year-old female complaining of significant worsening shortness of breath, [place], chest pain with deep breath, diaphoresis with exertion gradually over the past 6 days. She reports starting medication increase from 10 mg to 15 mg of Camzyos for her
heart failure approximately 6 days ago. She feels her symptoms have worsened since starting this medication. 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 She denies fever, chills, sore throat, chest pain at rest, cough, abdominal pain, nausea, vomiting, diarrhea, urinary symptoms. Other past
medical history includes Hx hypertrophic cardiomyopathy A-fib paroxysmal, chronic CHF, COPD, GERD, HTN, history of endocarditis.
Medical History
Past Medical History
Past Medical History: Reports Other
Additional Past Medical History:
[id number]
chronic CHF
COPD,
GERD
HTN,
history of endocarditis.
Hx hypertrophic cardiomyopathy
Chronic left knee pain
Past Surgical History: Reports Other
Additional Past Surgical History:
Appendectomy
Left knee surgery with reconstruction
Mitral valve tissue repair July 2014
A-fib cardioversion 2019
PVI ablation 04/21/2023
Social History
Tobacco: Former Smoker (40 years 1 pack a day quit 2014)
Alcohol: Daily (1 beer daily)
Drug: None
Personal: Single
Living: Alone
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
Family History
Family History: Other (Both parents were killed in an automobile accident when she was 16 she was then sent to boarding school with their life insurance as she states no one wanted her)
Allergies / Home Medications
Allergies reflects when Allergies were last updated in [facility] by [employer].
Home Medications with original date entered in [facility] by [facility]
Allergy/Medication List:
Allergies
Allergy/AdvReac Type Severity Reaction Status Date / Time
irbesartan Allergy Unknown Verified 12/06/23 11:21
Penicillins Allergy Hives Verified 12/06/23 11:21
procaine HCl [From Novocain] Allergy Unknown Verified 12/06/23 11:21
Home Medications
apixaban 5 mg tablet (Eliquis) 5 mg PO BID Blood clot prevention/tx 02/21/20
ascorbic acid (vitamin C) 500 mg tablet (Vitamin C) 1,000 mg PO DAILY Supplement 02/21/20
albuterol sulfate 90 mcg/actuation aerosol inhaler (Ventolin HFA) 2 puff inhalation R QIDPRN PRN shortness of breath, wheezing 07/11/21
furosemide 40 mg tablet 40 mg PO DAILY Fluid retention/Swelling #30 tabs 07/13/21
acetaminophen 500 mg tablet 1,000 mg PO BID Pain 05/27/22
amiodarone 200 mg tablet (Pacerone) 200 mg PO DAILY Arrhythmia 05/27/22
metoprolol tartrate 50 mg tablet 50 mg PO BID 30 days #60 tabs 06/08/22
mavacamten 5 mg capsule (Camzyos) 15 mg PO DAILY CARDIOMYOPATHY 02/14/23
atorvastatin 20 mg tablet (Lipitor) 20 mg PO DAILY High Cholesterol 06/21/23
fluticasone 113 mcg-salmeterol 14 mcg/actuation breath activated powdr 1 inh inhalation R BID Lung/Breathing Issues 06/21/23
furosemide 20 mg tablet (Lasix) 20 mg PO QPM 06/10/24
Review of Systems
-
History Source: Patient
A 12 point ROS was completed and negative except as noted: Yes
Constitutional: Denies Fever, Fatigue or Chills
EENT: Denies Sore Throat or Runny Nose
Respiratory: Reports Trouble Breathing (Pain in chest with deep breath); Denies Cough
Cardiac: Reports Chest Pain (Pain in chest with deep breath) and Diaphoresis (With activity carrying buckets [id number] to the horse stalls); Denies Syncope
Abdomen/GI: Denies Abdominal Pain, Nausea, Vomiting, Diarrhea, Constipated, Bloody Stools or Black Stools
: Denies Dysuria, Frequency, Flank Pain, Incontinence or Difficulty Voiding
Musculoskeletal: Denies Joint Pain, Joint Swelling or Edema
Skin: Denies Itching or Rash
Neurological: Denies Dizzy, Headache or Weakness
Endocrine: Reports No Symptoms
Hematologic/Lymphatic: Reports No Symptoms
Psych: Reports Calm
Physical Exam
Vital Signs
Vital Signs
Temp Pulse Resp BP Pulse Ox
97.8 F 73 16 137/91 95
06/10/24 10:44 06/10/24 10:44 06/10/24 10:44 06/10/24 10:44 06/10/24 11:53
Physical Exam
General: Comfortable and Conversant; No Pain, Fever or Chills
HEENT: NormoCephalic, Anicteric, Moist mucous membranes, PERRLA, [place] Conjunctivae and No Ptosis
Respiratory: Clear; No Wheezes, Rales or Rhonchi
Cardiac: S1/S2 and Regular Rhythm; No Murmur, Rub, Gallop or Peripheral Edema
Breast: Deferred by me
GI: Soft, Non Tender, Non Distended, Normal Bowel Sounds and No Hepatosplenomegaly
Rectal: Deferred by Provider
Genito-urinary: Deferred by me
Musculoskeletal: No Clubbing, No Cyanosis and No Edema
Skin: Warm, Dry and Rash; No Jaundice
Neuro: AO x 3, No Motor Deficits, Nonfocal/grossly intact, Cranial Nerves Intact and No Sensory Deficits; No Slurred Speech, Facial Droop, Tremors or Sedated
Psych: Calm
Laboratory Results
-
06/10/24 10:54
06/10/24 10:54
Laboratory Results
Total Bilirubin 1.2 mg/dl (0.2-1.3) 06/10/24 10:54
AST 25 U/L (14-36) 06/10/24 10:54
ALT 18 U/L (0-35) 06/10/24 10:54
Alkaline Phosphatase 90 U/L (38-126) 06/10/24 10:54
Troponin I < 0.012 ng/ml 06/10/24 10:54
Data Reviewed
-
Lab Data: Labs Reviewed by me
Impression/Plan
-
Impression/plan:
Admit to telemetry
# Dyspnea on exertion concern for worsening cardiomyopathy
#Hx hypertrophic cardiomyopathy
-Consult [facility] cardiology-Dr. Evans aware
-Check 2D echo
-Patient on Camzyos 15 mg she did take a dose this morning 06/10/2024
2D echo 06/23/2023: EF 70-75%, normal LV S LVSF, no wall abnormalities, mild LVH, biatrial enlargement,
bioprosthetic mitral valve mean gradient 8 mmHg
moderate aortic stenosis peak mean gradients 67/37 mm,
severe LVH
mild AR/pulmonic regurg
#Exertional chest pain concern ACS
-Trend troponins Trop < 0.012
#Chronic CHF
Current weight 70.8 kg> 70 KG on 12/06/2023
BNP 3630 prior 2015November 2023
I/O, daily weights
-Patient on Lasix 40 mg in the a.m., 20 mg in the p.m.
Patient was given IV Lasix40 mg once in the ER
#C-lui-oempokfeio
-Continue amiodarone 200 mg daily,
- cont Eliquis 5 mg twice daily
#Chronic COPD�no acute exacerbation
-Continue fluticasone 1 inhalation twice daily, albuterol 2 puffs as needed
#HTN�benign
BP 137/91
-Continue metoprolol tartrate 50 mg twice daily
#GERD hx
#HLD
Continue Lipitor 20 mg daily
#Endocarditis Hx
#Chronic pain left knee/DJD
-Continue Tylenol 1000 mg twice daily
DVT prophylaxis
Continue Eliquis
DNR patient's emergency contact is her goddaughter José
--- NOTE | 2024-06-10 13:36 | W.PN.UPDATE ---
Update Note
Progress Note Update
This is an addendum to H&P written by SYSTEM TRAINER Shruthi Acosta
I saw and examined the patient.
The SYSTEM TRAINER's note was reviewed and I agree with the note.
Comment:
Ms. Elizabeth Ortiz is a 78 yo woman with hx paroxysmal fib, essential HTN, HLD, hypertrophic cardiomyopathy on Camzyos with recent increase, bioprosthetic mitral valve replacement 2014, presents with worsening exertional shortness of breath and
chest pain with diaphoresis.
Triage VS: T 97.8, P 73, RR 16, BP 137/91, SpO2 95%
On exam patient is in no distress, conversant; cannot appreicate significant JVD, Chest CTA, abdomen benign, no LE sweliing
LABS: WBC 6.9, Hg 14.7, PLT 155, Na 140, K+ 4.6, Cl 103, BUN 24, Cr 0.8, Glucose 111
Trop negative
BNP 3630
MAR: Lasix 40mg IV x 1
TTE 07/05 with EF 70-75%, bioprostehtic mitral valve, moderate
Heart Failure preserved EF
Hx Cardiomyopathy, HCM on on Camzyos
Exertional Dyspnea
Paroxysmal Fib
-patient with worsening dyspnea on exertion that got worse after going up on Camzyos dosing
-will obtain TTE now
-s/p Lasix in ER, monitor response
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
-Cardiology consult, follow up further recommendations
DVT PPx: CHLORINE OPERATOR Eliquis
DNR - confirmed on admission
76 minutes spent on patient care
[2024-06-10] MEDS: LASIX 40 MG IV ×2 (14:15→19:32)
[2024-06-10 14:53] LABS: COVID-19 Antigen Negative (Negative)
[2024-06-10 15:52] LABS: Troponin I 0.013 ng/ml
--- NOTE | 2024-06-10 16:27 | CON.CAR ---
Addendum entered and electronically signed by Yahaira Evans MD 06/10/24 18:01:
I saw and examined the patient.
The Medical Lab Director's note was reviewed and I agree with the note.
Comment: Patient well-known to me and presents with 1 weeks worth of increasing dyspnea on exertion. She appears to be volume overloaded today. Exam consistent with volume overload with decreased breath sounds at the bases, mild JVD with
hepatojugular reflux. Trace edema. Her weight has been stable at home. She has been having some excess sodium in her diet. She increased her Camzyos dose recently and has not felt well since that time but also she has been doing increased work
in the extremely cold weather then had slight change in her diet.
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 Also aortic valve disease. She also has pulmonary hypertension for which she
recently underwent right heart catheterization at [facility] and was told that this is secondary to increased volume and her mitral valve. She has follow-up in the next 2 weeks.
-Right heart catheterization 12/2023 with PA pressure 94/32 and mean 54. PVR 8. PCW 25. Cardiac output 3.6 and cardiac index 2.14.
-I feel that her shortness of breath is multifactorial and most likely secondary to increased volume with increased proBNP from her baseline noted. She did receive a dose of IV Lasix in the ER. She will receive another dose of IV Lasix tonight and
then we will reassess in the morning.
-Continue current dose of Camzyos
-Echocardiogram done today with hyperdynamic/normal LV function. Stable LVOT gradients in the setting of hypertrophic cardiomyopathy on Camzyos. Pulmonary hypertension for which she was seen at [facility] and we have requested
records.
-EKG is stable. Troponins are normal. She does not appear infected.
Would obtain euvolemic status without overdiuresis. Would make no changes in Camzyos at this time. LVOT gradient is stable. Will have her follow [facility] for hypertrophic cardiomyopathy, mitral valve prosthetic stenosis and
pulmonary hypertension. She will also see me back in the office.
She will work harder on sodium restriction in her diet.
Original Note:
Consultation
Consultation Request
Date/Time Consultation Requested: 06/10/24
Date/Time Consultation Performed: 06/10/24
Requesting Provider: Dr. Staples
Performing Provider: Dr. Yahaira Evans
Reason for Consultation: SOB, chest pain/pressure
Medical History
-
History of Present Illness:
Patient came to ER today with complaints of increased CLAYTON and chest pressure and cardiology is now consulted. Patient has a history of tissue MVR from 2014 and then more recently a diagnosis of hypertrophic cardiomyopathy and was started on
Camzyos that is being managed at [facility] [place]. Some records were available from [facility] from over the summer and showed that patient had a stress echo on 12/09/2023 and pulmonary gradient increased from 95 up to 122 with a resting TR gradient of 95 there was
concern for pulmonary hypertension. Of note her LVOT gradient increased from 6-27. In December patient had RHC at [facility] and was felt that she likely had secondary pulmonary hypertension and plan was to continue treatment including volume management.
At the time of her echo on 12/09/2023 she was taking Camzyos 10 mg daily. Patient says that within the last 1 to 2 months she had an echo at [facility] and the gradient was increased so her Camzyos dose this past Friday was increased to 15 mg daily.
Patient thought that she might start to feel better in someway with the higher dose, but she actually felt worse with increased CLAYTON and which she describes as soreness in her chest with activity that was unlike other symptoms that she has had
before. The symptoms have been building and patiently finally came to ER today and her proBNP was elevated at 3630 compared to 2260 when she was here in November. Troponins have been normal.
PMH:
Chronic HFpEF
Paroxysmal atrial fibrillation
s/p PVI 04/2023
HCM, severe concentric LVH, on Camzyos dosing changes managed at [facility]
PHTN
s/p RHC at [facility] 12/2023
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
Mild
Bioprosthetic mitral valve replacement 2014
h/o endocarditis
Hypertension
Hyperlipidemia
COPD
Past Medical History
Past Medical History: Other (As per HPI)
Past Surgical History: Appendectomy, Cardiac (Bioprosthetic mitral valve replacement 2014) and Orthopedic
Social History
Tobacco: Former Smoker
Alcohol: Daily (1 beer a day)
Drug: None
Personal: Single
Living: Alone
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
Family History
Family History: Reviewed & Not Pertinent
Allergies / Home Medications
Allergy/AdvReac Type Severity Reaction Status Date / Time
irbesartan Allergy Unknown Verified 12/06/23 11:21
Penicillins Allergy Hives Verified 12/06/23 11:21
procaine HCl [From Novocain] Allergy Unknown Verified 12/06/23 11:21
�Medication �Instructions �Recorded �Confirmed �Type
apixaban 5 mg tablet (Eliquis) 5 mg PO BID Blood clot 02/21/20 06/10/24 History
prevention/tx
ascorbic acid (vitamin C) 500 mg 1,000 mg PO DAILY Supplement 02/21/20 06/10/24 History
tablet (Vitamin C)
albuterol sulfate 90 mcg/actuation 2 puff inhalation R QIDPRN PRN 07/11/21 06/10/24 History
aerosol inhaler (Ventolin HFA) shortness of breath, wheezing
furosemide 40 mg tablet 40 mg PO DAILY Fluid 07/13/21 06/10/24 Rx
retention/Swelling #30 tabs
acetaminophen 500 mg tablet 1,000 mg PO BID Pain 05/27/22 06/10/24 History
amiodarone 200 mg tablet (Pacerone) 200 mg PO DAILY Arrhythmia 05/27/22 06/10/24 History
mavacamten 5 mg capsule (Camzyos) 15 mg PO DAILY CARDIOMYOPATHY 02/14/23 06/10/24 History
atorvastatin 20 mg tablet (Lipitor) 20 mg PO DAILY High Cholesterol 06/21/23 06/10/24 History
fluticasone 113 mcg-salmeterol 14 1 inh inhalation R BID 06/21/23 06/10/24 History
mcg/actuation breath activated Lung/Breathing Issues
powdr
furosemide 20 mg tablet (Lasix) 20 mg PO QPM Fluid 06/10/24 06/10/24 History
Retention/Swelling
metoprolol tartrate 50 mg tablet 50 mg PO BID Blood Pressure 06/10/24 06/10/24 History
Review of Systems
-
History Source: Patient
All other systems: Negative unless noted
Physical Exam
Vital Signs
Temp Pulse Resp BP Pulse Ox
97.8 F 68 28 173/61 86
06/10/24 10:44 06/10/24 16:00 06/10/24 16:00 06/10/24 14:23 06/10/24 16:00
GEN: NAD. AAO x3
HEENT: Increased JVP. EOMI
LUNGS: RA. No audible wheeze
CV: SR on tele. Reg, 2/6 syst murmur
ABD: soft, BS+, NT, ND
EXT: No clubbing, cyanosis, or edema B/L
NEURO: Gross non-focal
SKIN: Warm, dry, no rash
Lab Results
06/10/24 10:54
06/10/24 10:54
Troponin I 0.013 ng/ml 06/10/24 14:30
[id number] Pept 3630 pg/ml 06/10/24 10:54
Impression / Plan
-
PCP: Antonieta Clark MD
CDY: Yahaira Evans MD locally and Dr. Pat at [facility]
Impression:
Acute on chronic HFpEF
Chest pain with serially normal Troponin
Paroxysmal atrial fibrillation
s/p PVI 04/2023
HCM, severe concentric LVH, on Camzyos dosing changes managed at [facility] [place]
PHTN
s/p RHC at [facility] [place] 12/2023
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
Mild
Bioprosthetic mitral valve replacement 2014
h/o endocarditis
Hypertension
Hyperlipidemia
COPD
RHC 12/24/2023: Performed at [facility] [place], PCWP consistent with severe PHTN, PVR 8 Wood units and mildly depressed assumed [place] cardiac index
YUE 06/07/22: EF 70-75%, severe cLVH, well seated bioprosthetic MV, mild MS, mild , mild AR
Echo 06/23/23: EF 70 to 75%, mild concentric LVH, mid cavitary gradient is 76/29 at rest and 89/35 with Valsalva, bioprosthetic mitral valve with mean gradient 8 mmHg and no MR, moderate peak/mean 67/37 mmHg and ZACHARY 1.3 cm sq, some transvalvular
gradient could be secondary to severe LVH, mild pulmonic regurgitation
Echo 10/08/23: LVOT peak gradient 5 mmHg at rest up to 31 with Valsalva, EF 75%, hyperdynamic LV
Echo 12/01/23: EF 60%, mid cavitary obstruction with LVOT gradient 20 mmHg at rest increased to 27 with Valsalva, normal function of bioprosthetic mitral valve, moderate TR with PAP 88 mmHg
Echo 06/10/2024: LV small size with severe concentric LVH (interventricular septum 2.3 cm, posterior wall 2 cm), no WMA, EF 65 to 70%, mid cavitary gradient of at least 5 mmHg up to 23 with Valsalva, LVOT gradient at rest is 9 with Valsalva up to 18,
normal RV size and function, moderate TR with PAP 80 to 85 mmHg, compared to echo from 12/01/2023 at [facility] RV is now mildly dilated consistent with PHTN seen on most recent workup and aortic valve now with moderate insufficiency
Plan:
-Patient came to ER today with complaints of increased CLAYTON and chest pressure and cardiology is now consulted. Patient has a history of tissue MVR from 2014 and then more recently a diagnosis of hypertrophic cardiomyopathy and was started on
Camzyos that is being managed at [facility] [place]. Some records were available from [facility] [place] from over the summer and showed that patient had a stress echo on 12/09/2023 and pulmonary gradient increased from 95 up to 122 with a resting TR gradient of 95 there was
concern for pulmonary hypertension. Of note her LVOT gradient increased from 6-27. In December patient had RHC at [facility] [place] and was felt that she likely had secondary pulmonary hypertension and plan was to continue treatment including volume management.
At the time of her echo on 12/09/2023 she was taking Camzyos 10 mg daily. Patient says that within the last 1 to 2 months she had an echo at [facility] [place] and the gradient was increased so her Camzyos dose this past Friday was increased to 15 mg daily.
Patient thought that she might start to feel better in someway with the higher dose, but she actually felt worse with increased CLAYTON and which she describes as soreness in her chest with activity that was unlike other symptoms that she has had
before. The symptoms have been building and patiently finally came to ER today and her proBNP was elevated at 3630 compared to 2260 when she was here in November. Troponins have been normal.
-ECG reviewed by me is SR without acute ST-T wave changes
-Outpatient dose of Lasix 40 mg AM and 20 mg PM daily has been continued, but would favor IV diuresis. Will switch over to Lasix 40 mg IV BID through tonight and then hold until evaluated in the AM to avoid overdiuresis.
-Outpatient dose of Camzyos was increased to 15 mg daily due to increased gradient by most recent echo which we do not have a copy of. Cardiology office had previously requested most recent records and we will request them again tomorrow
-Echo from today noted above
-Troponins serially normal
[2024-06-10] MEDS: ADVAIR HFA 115/21 MCG INHALER 2 PUFF INH (19:45)
[2024-06-10] MEDS: TYLENOL 1000 MG PO (20:02)
[2024-06-10] MEDS: LOPRESSOR 50 MG PO (20:04)
[2024-06-10] MEDS: ELIQUIS 5 MG PO (20:04)
[2024-06-10 22:34] LABS: Troponin I 0.024 ng/ml
[2024-06-11] VITALS (7 sets, daily range): BP systolic 82–151; BP diastolic 50–64; PULSE 70; O2SAT 96; BMI 28.1
[2024-06-11 07:41] LABS: % Basophils 0.3 % (0-2); % Eosinophils 1.9 % (0-6); % Immature Granulocytes 0.5 % (0-0.5); % Lymphocytes 8.8 % (20.5-51.1); % Monocytes 12.3 % (1.7-9.3); % Neutrophils 76.2 % (42.2-75.2); Absolute Eosinophils 0.1 10^3/uL (0-0.7); Absolute Lymphocytes 0.5 10^3/uL (1.2-3.4); Absolute Monocytes 0.8 10^3/uL (0.1-0.6); Absolute Neutrophils 4.7 10^3/uL (1.4-6.5); Hematocrit 46.6 % (37.0-47.0); Hemoglobin 14.9 g/dL (12.0-16.0); Mean Corpuscular Hgb 30.3 pg (27.0-31.0); Mean Corpuscular Volume 94.9 fL (81.0-99.0); Mean Platelet Volume 9.5 fL (7.4-10.4); Nucleated Red Blood Cells % 0 %; Platelet Count 146 10^3/uL (130-400); Red Blood Cell Count 4.91 10^6/uL (4.20-5.40); Red Cell Dist. Width 13.7 % (11.5-14.5); White Blood Cell Count 6.2 10^3/uL (4.8-10.8)
[2024-06-11] MEDS: ADVAIR HFA 115/21 MCG INHALER 2 PUFF INH ×2 (07:43→19:57)
[2024-06-11 08:05] LABS: ALT (SGPT) 17 U/L (0-35); AST (SGOT) 24 U/L (14-36); Albumin 4.5 g/dl (3.5-5.0); Alkaline Phosphatase 87 U/L (38-126); Blood Urea Nitrogen 23 mg/dl (7-17); Calcium 9.4 mg/dl (8.4-10.2); Carbon Dioxide 32 mmol/L (22-30); Chloride 97 mmol/L (98-107); Estimated Creatinine Clearance 46 ml/min; Glucose 127 mg/dl (70-99); HDL Cholesterol 70 mg/dl; LDL Cholesterol, Calculated 71 mg/dl; Magnesium 2.4 mg/dl (1.6-2.3); Potassium 4.4 mmol/L (3.5-5.1); Sodium 138 mmol/L (135-145); Total Bilirubin 1.4 mg/dl (0.2-1.3); Total Cholesterol 182 mg/dl (50-199); Total Protein 6.9 g/dl (6.3-8.2); Triglyceride 208 mg/dl (10-149); Very Low Density Lipoprotein 41 mg/dl (0-30); eGFR > 60.00
[2024-06-11] MEDS: TYLENOL 1000 MG PO ×2 (08:49→20:26)
[2024-06-11] MEDS: LOPRESSOR 50 MG PO ×2 (08:49→20:26)
[2024-06-11] MEDS: PACERONE 200 MG PO (08:50)
[2024-06-11] MEDS: VITAMIN C 1000 MG PO (08:50)
[2024-06-11] MEDS: FLUSH (NSS) 1 FLUSH IV (08:50)
[2024-06-11] MEDS: ELIQUIS 5 MG PO ×2 (08:50→20:26)
[2024-06-11] MEDS: LIPITOR 20 MG PO (08:50)
--- NOTE | 2024-06-11 12:02 | CM ---
Cm met with pt who lives alone in a 1st floor apartment with 8 steps to enter, patient is independent with adl's and ambulation, no DME.
Advance Directive provided; advised Elizabeth to share a copy of the Advance Directive with her PCP and family/friends who would be aware of her wishes regarding medical care if she is unable to speak for her self
Plan: Home no needs.
PCP: Dr. Clark
Pharmacy: [facility] in [place], [place]
--- NOTE | 2024-06-11 12:12 | CM ---
Patient lives alone in a 1st floor apartment with 8 steps to enter, patient is independent with adl's and ambulation, no dme, patient has a prescription plan and uses [facility] pharmacy in [place], [place].
Plan: Home no needs.
PCP: Dr. Clark
--- NOTE | 2024-06-11 13:54 | W.PN.CARDCBS ---
Addendum entered and electronically signed by Alejandro Posada MD 06/11/24 18:03:
Admitted with chest pressure and increasing dyspnea on exertion.
Currently she feels better.
PMH: Mitral valve replacement with bioprosthesis 2014, recently diagnosed hypertrophic cardiomyopathy started on mavacamten, severe pulmonary hypertension with systolic pressures in excess of 100 mmHg, mavacamten recently increased to 15 mg a day,
proBNP 3630, previously 2260
Current meds: Amiodarone 200 mg a day, apixaban 5 mg twice daily, atorvastatin 20 mg a day, Advair, Lopressor 50 twice daily, furosemide 20 mg a.m. and 40 mg p.m., mavacamten on hold
151/54, pulse 67, weight is 67.4 kg, was 70.8 kg on admission, intake and output likely incomplete, no distress, head neck exam unremarkable, lungs relatively clear, soft systolic murmur left lower sternal border and also at the base, no Leaman
Chest x-ray yesterday vascular congestion cardiomegaly, small effusions
ECG sinus rhythm first-degree AV block probable LVH with QRS widening, right axis deviation
Hemoglobin 14.9, platelets 146, CO2 32, BUN and creatinine 23 and 0.9
Echo 06/10/2024: Severe LVH, posterior wall 2.3 cm, EF 65-70%, resting gradient 5 in mid cavity, 23 with Valsalva, D-shaped ventricle, mean mitral valve gradient 13 mmHg, peak gradient 28 mmHg, pulmonary artery systolic pressure 80-85 mmHg, moderate
TR, dilated RV, mild aortic stenosis, mild aortic regurgitation
Impression: See below
Plan:
With regards to acute on chronic HFpEF and severe pulmonary hypertension, she now seems relatively compensated. She is anxious to leave and looks ready for discharge based on volume status.
She will restart mavacamten tomorrow. Is now on oral diuretics.
Continue amiodarone, apixaban and metoprolol tartrate
Anticipate discharge in a.m.
Original Note:
Today's Communication / Plan
-
Will resume PO lasix 40mg AM, 20mg PM
Continue Camzyos at 15mg daily, gradients improved on echo 06/10.
Follow up arranged w/ Dr. Syed
Impression / Plan
-
PCP: Antonieta Clark MD
CDY: Yahaira Evans MD locally and Dr. Pat at [facility] ([phone])
Impression:
Acute on chronic HFpEF
Chest pain with serially normal Troponin
Paroxysmal atrial fibrillation
s/p PVI 04/2023
HCM, severe concentric LVH, on Camzyos dosing changes managed at [facility]
PHTN
s/p RHC at [facility] 12/2023
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
Mild
Bioprosthetic mitral valve replacement 2014
h/o endocarditis
Hypertension
Hyperlipidemia
COPD
RHC 12/24/2023: Performed at [facility], PCWP consistent with severe PHTN, PVR 8 Wood units and mildly depressed assumed [place] cardiac index
YUE 06/07/22: EF 70-75%, severe cLVH, well seated bioprosthetic MV, mild MS, mild , mild AR
Echo 06/23/23: EF 70 to 75%, mild concentric LVH, mid cavitary gradient is 76/29 at rest and 89/35 with Valsalva, bioprosthetic mitral valve with mean gradient 8 mmHg and no MR, moderate peak/mean 67/37 mmHg and ZACHARY 1.3 cm sq, some transvalvular
gradient could be secondary to severe LVH, mild pulmonic regurgitation
Echo 10/08/23: LVOT peak gradient 5 mmHg at rest up to 31 with Valsalva, EF 75%, hyperdynamic LV
Echo 12/01/23: EF 60%, mid cavitary obstruction with LVOT gradient 20 mmHg at rest increased to 27 with Valsalva, normal function of bioprosthetic mitral valve, moderate TR with PAP 88 mmHg
Echo @ [facility] 05/25/2024: EF 75%, LVIS measures 1.5 cm, LVOT peak gradient at rest measures 16 mmHg, with Valsalva up to 51 mmHg, GLS 11.5%, bioprosthetic mitral valve with trace MR with peak/mean gradients 28/11 mmHg, mild with peak/mean gradients
21/11 mmHg, mild to moderate AR, mild TR, estimated PAP 87 mmHg
Echo 06/10/2024: LV small size with severe concentric LVH (interventricular septum 2.3 cm, posterior wall 2 cm), no WMA, EF 65 to 70%, mid cavitary gradient of at least 5 mmHg up to 23 with Valsalva, LVOT gradient at rest is 9 with Valsalva up to 18,
normal RV size and function, moderate TR with PAP 80 to 85 mmHg, compared to echo from 12/01/2023 at [facility] RV is now mildly dilated consistent with PHTN seen on most recent workup and aortic valve now with moderate insufficiency
Plan:
-Presented with increased SOB and chest pressure. Admitted with acute heart failure.
-Given 40mg IV lasix x2 on 06/10. Appears euvolemic 06/11. Weight is at baseline and she is feeling well. Breathing improved. No edema.
-Would resume PO lasix 40mg AM 20mg PM.
-OP Camzyos was recently increased to 15 mg daily due to increased gradients noted on echo 05/25. Requested and reviewed echo. At the time, LVOT gradient w/ Valsalva was up to 51 mmHg.
-Gradients improved on echo 06/10/2024, so will continue current dose of Camzyos 15mg daily.
-Troponin serially normal. No further chest pain.
-Continue Eliquis 5mg BID.
-Continue Lopressor 50mg BID and amiodarone 200mg daily.
-OP follow up arranged.
HPI: Patient came to ER today with complaints of increased CLAYTON and chest pressure and cardiology is now consulted. Patient has a history of tissue MVR from 2014 and then more recently a diagnosis of hypertrophic cardiomyopathy and was started on
Camzyos that is being managed at [facility]. Some records were available from [facility] from over the summer and showed that patient had a stress echo on 12/09/2023 and pulmonary gradient increased from 95 up to 122 with a resting TR gradient of 95 there was
concern for pulmonary hypertension. Of note her LVOT gradient increased from 6-27. In December patient had RHC at [facility] and was felt that she likely had secondary pulmonary hypertension and plan was to continue treatment including volume management.
At the time of her echo on 12/09/2023 she was taking Camzyos 10 mg daily. Patient says that within the last 1 to 2 months she had an echo at [facility] and the gradient was increased so her Camzyos dose this past Friday was increased to 15 mg daily.
Patient thought that she might start to feel better in someway with the higher dose, but she actually felt worse with increased CLAYTON and which she describes as soreness in her chest with activity that was unlike other symptoms that she has had
before. The symptoms have been building and patiently finally came to ER today and her proBNP was elevated at 3630 compared to 2260 when she was here in November. Troponins have been normal.
Progress Note - International Accounting Manager
Subjective
Date of Service: June 11, 2024
Breathing improved. Feels at baseline.
Objective
Labs:
06/11/24 07:13
06/11/24 07:13
Labs
Hgb 14.9 g/dL (12.0-16.0) 06/11/24 07:13
Hct 46.6 % (37.0-47.0) 06/11/24 07:13
Plt Count 146 10^3/uL (130-400) 06/11/24 07:13
Sodium 138 mmol/L (135-145) 06/11/24 07:13
Potassium 4.4 mmol/L (3.5-5.1) 06/11/24 07:13
BUN 23 mg/dl (7-17) H 06/11/24 07:13
Creatinine 0.9 mg/dL (0.6-1.0) 06/11/24 07:13
Glucose 127 mg/dl (70-99) H 06/11/24 07:13
Troponins
06/10/24 06/10/24 06/10/24
10:54 14:30 21:57
Troponin I < 0.012 0.013 0.024 D
Vital Signs and I&O:
Vital Signs
Temp Pulse Resp BP Pulse Ox
98.6 F 58 20 134/64 95
06/11/24 11:55 06/11/24 11:55 06/11/24 11:55 06/11/24 11:55 06/11/24 11:55
Vital Signs
Temp Pulse Resp BP Pulse Ox
98.6 F 58 20 134/64 95
06/11/24 11:55 06/11/24 11:55 06/11/24 11:55 06/11/24 11:55 06/11/24 11:55
Intake & Output
06/09/24 06/10/24 06/11/24 06/12/24
06:59 06:59 06:59 06:59
Intake Total 480 / 480
Output Total 500 / 500
Balance -20 / -20
Physical Exam
Physical Exam
GEN: No distress, awake, alert, oriented x3
HEENT: supple, anicteric, mmm
LUNGS: CTA b/l, no wheezes/rales
CV: Reg, S1/S2, 2/6 syst murmur
EXT: No clubbing, cyanosis, or edema
NEURO: Gross non-focal
SKIN: Warm, dry, no rash
[2024-06-11] MEDS: LASIX 40 MG PO (16:26)
--- NOTE | 2024-06-11 16:35 | W.PN.HOSP.TC ---
Today's Communication/Plan
-
Assessment / Plan
Assessment / Plan
Gen-AAOx3, NAD
HEENT-NC, AT, anicteric, clear oral mm
Neck-supple
CV-reg, no M, +S1/S2
Lungs-clear B/L
Abd-soft, NT, ND
Musculoskeletal-no edema, no deformity
Skin-warm and dry
Neuro-grossly non-focal
Psych-calm, cooperative
Ms. Bullock is a 78-year-old female with a medical history of hypertrophic cardiomyopathy (severe concentric, on Camzyos), paroxysmal A-fib, chronic HFpEF, bioprosthetic mitral valve replacement (2014), nonobstructive CAD, COPD, and hypertension
who presented with dyspnea on exertion. 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 She noticed feeling short of breath and fatigued when working with the horses. She noted that her
Camzyos dose had recently been increased from 10 mg to 15 mg daily, and is not sure if her presenting symptoms are related to this dosage change. Her outpatient slot manager Dr. Lundberg at [facility] and manages her Camzyos regimen. She was
diuresed with IV Lasix 40 mg x 2 at time of admission with appropriate urine output. She quickly clinically improved and appeared euvolemic the following morning 06/11, at which point she was breathing comfortably and felt at baseline. She was
reevaluated by cardiology who recommended resuming p.o. Lasix 40 mg in the morning and 20 mg at night, also recommended continuing Camzyos at 50 mg daily as her gradients appeared improved on echo during this admission. She was hemodynamically
stable for discharge to home. She will need ongoing follow-up with her slot manager in the outpatient setting.
Acute on chronic HFpEF:
-History of hypertrophic cardiomyopathy, severe concentric LVH, on Camzyos, dose recently increased from 10 mg to 15 mg daily
-Was diuresed with IV Lasix 40 mg x 2 overnight, feeling much more comfortable this morning
-Cardiology recommending transition to home dose of oral Lasix at this point, will monitor response
-Echocardiogram 06/10 showed improved LVOT gradients compared to echo 05/25/2024 prior to Camzyos dose increase
-Cardiology recommends continuing home dose of Camzyos 15 mg at discharge
Paroxysmal A-fib:
-Continue metoprolol to tartrate 50 mg p.o. twice daily
-Anticoagulation with Eliquis
CODE STATUS: DNR
Anticipated Discharge: Within 24 hours
Subjective/Interval History
-
Date of Service: June 11, 2024
Patient was seen and examined at bedside this morning. Feels well after diuresis with IV Lasix overnight.
Objective Data
-
Labs:
Laboratory Results
06/11/24
07:13
WBC 6.2
Hgb 14.9
Hct 46.6
Plt Count 146
Sodium 138
Potassium 4.4
Chloride 97 L
Carbon Dioxide 32 H
BUN 23 H
Creatinine 0.9
Glucose 127 H
Calcium 9.4
Total Bilirubin 1.4 H
AST 24
ALT 17
Alkaline Phosphatase 87
Vital Signs:
Vital Signs
Temp Pulse Resp BP Pulse Ox
97.9 F 67 18 151/54 95
06/11/24 15:55 06/11/24 15:55 06/11/24 15:55 06/11/24 15:55 06/11/24 15:55
I&O
06/10/24 06/11/24 06/12/24
06:59 06:59 06:59
Intake Total 480 / 480
Output Total 500 / 500
Balance -20 / -20
Review of Systems
-
History Source: Patient
All other systems: Reviewed and negative
Physical Exam
-
General: No Apparent Distress
[2024-06-12 03:23] VITALS: BP 104/61
[2024-06-12 06:00] VITALS: BMI 28.1
[2024-06-12 07:00] LABS: % Basophils 0.4 % (0-2); % Immature Granulocytes 0.7 % (0-0.5); % Lymphocytes 9.7 % (20.5-51.1); % Monocytes 13.2 % (1.7-9.3); Absolute Eosinophils 0.1 10^3/uL (0-0.7); Absolute Lymphocytes 0.5 10^3/uL (1.2-3.4); Absolute Monocytes 0.7 10^3/uL (0.1-0.6); Hematocrit 47.2 % (37.0-47.0); Hemoglobin 15.1 g/dL (12.0-16.0); Mean Corpuscular Hgb 30.2 pg (27.0-31.0); Mean Corpuscular Volume 94.4 fL (81.0-99.0); Mean Platelet Volume 9.5 fL (7.4-10.4); Nucleated Red Blood Cells % 0 %; Platelet Count 151 10^3/uL (130-400); Red Cell Dist. Width 13.6 % (11.5-14.5); White Blood Cell Count 5.4 10^3/uL (4.8-10.8)
[2024-06-12 07:15] VITALS: BP 146/53
[2024-06-12 07:26] LABS: ALT (SGPT) 17 U/L (0-35); AST (SGOT) 26 U/L (14-36); Albumin 4.9 g/dl (3.5-5.0); Alkaline Phosphatase 90 U/L (38-126); Blood Urea Nitrogen 31 mg/dl (7-17); Calcium 9.2 mg/dl (8.4-10.2); Carbon Dioxide 31 mmol/L (22-30); Chloride 97 mmol/L (98-107); Estimated Creatinine Clearance 46 ml/min; Glucose 136 mg/dl (70-99); Potassium 3.8 mmol/L (3.5-5.1); Sodium 139 mmol/L (135-145); Total Bilirubin 1.2 mg/dl (0.2-1.3); Total Protein 7.7 g/dl (6.3-8.2); eGFR > 60.00
[2024-06-12] MEDS: ADVAIR HFA 115/21 MCG INHALER 2 PUFF INH (07:56)
[2024-06-12] MEDS: TYLENOL 1000 MG PO (08:23)
[2024-06-12] MEDS: LASIX 40 MG PO (08:24)
[2024-06-12] MEDS: VITAMIN C 1000 MG PO (08:24)
[2024-06-12] MEDS: ELIQUIS 5 MG PO (08:24)
[2024-06-12] MEDS: PACERONE 200 MG PO (08:24)
[2024-06-12] MEDS: LOPRESSOR 50 MG PO (08:24)
[2024-06-12] MEDS: LIPITOR 20 MG PO (08:24)
--- NOTE | 2024-06-12 10:20 | W.DCSUMMARY ---
Discharge Summary
Discharge Data
Date of Admission: 06/10/24
Date of Discharge: 06/12/24
-
Pending Results: No
Hospital Course
Ms. Bullock is a 78-year-old female with a medical history of hypertrophic cardiomyopathy (severe concentric, on Camzyos), paroxysmal A-fib, chronic HFpEF, bioprosthetic mitral valve replacement (2014), nonobstructive CAD, COPD, and hypertension
who presented with dyspnea on exertion. 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 She noticed feeling short of breath and fatigued when working with the horses. She noted that her
Camzyos dose had recently been increased from 10 mg to 15 mg daily, and is not sure if her presenting symptoms are related to this dosage change. Her outpatient investigation manager Dr. Lundberg at [facility] and manages her Camzyos regimen. She was
diuresed with IV Lasix 40 mg x 2 at time of admission with appropriate urine output. She quickly clinically improved and appeared euvolemic the following morning 06/11, at which point she was breathing comfortably and felt at baseline. She was
reevaluated by cardiology who recommended resuming p.o. Lasix 40 mg in the morning and 20 mg at night, also recommended continuing Camzyos at 50 mg daily as her gradients appeared improved on echo during this admission. She was hemodynamically
stable for discharge to home. She will need ongoing follow-up with her investigation manager in the outpatient setting.
Gen-AAOx3, NAD
HEENT-NC, AT, anicteric, clear oral mm
Neck-supple
CV-reg, no M, +S1/S2
Lungs-clear B/L
Abd-soft, NT, ND
Musculoskeletal-no edema, no deformity
Skin-warm and dry
Neuro-grossly non-focal
Psych-calm, cooperative
Discharge Plan
-
Patient Disposition: Home (Routine Discharge)
Discharge Diagnosis/Procedures: Acute on chronic diastolic heart failure
Diet: Low Cholesterol
Activity: As tolerated
Specialty Instructions: Weigh Daily- Call MD for wt gain/loss 3 lbs overnight/5 lbs in 1 week
Activity Restrictions/Additional Instructions:
Ms. Bullock is a 78-year-old female with a medical history of hypertrophic cardiomyopathy (severe concentric, on Camzyos), paroxysmal A-fib, chronic HFpEF, bioprosthetic mitral valve replacement (2014), nonobstructive CAD, COPD, and hypertension
who presented with dyspnea on exertion. 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 She noticed feeling short of breath and fatigued when working with the horses. She noted that her
Camzyos dose had recently been increased from 10 mg to 15 mg daily, and is not sure if her presenting symptoms are related to this dosage change. Her outpatient investigation manager Dr. Lundberg at [facility] and manages her Camzyos regimen. She was
diuresed with IV Lasix 40 mg x 2 at time of admission with appropriate urine output. She quickly clinically improved and appeared euvolemic the following morning 06/11, at which point she was breathing comfortably and felt at baseline. She was
reevaluated by cardiology who recommended resuming p.o. Lasix 40 mg in the morning and 20 mg at night, also recommended continuing Camzyos at 50 mg daily as her gradients appeared improved on echo during this admission. She was hemodynamically
stable for discharge to home. She will need ongoing follow-up with her investigation manager in the outpatient setting.
Instructions: *[facility] Heart Failure Instructions
Referrals:
Yahaira Evans MD [Active] - 06/28/24 10:00 am (You have a follow up visit with Dr. Syed at the [place] office. Appt time has changed slightly as it is a hospital follow up visit. Please call with questions)
Antonieta Clark MD [Family Provider] -
Prescriptions:
Continued
ascorbic acid (vitamin C) [Vitamin C] 500 MG tablet
1,000 mg PO DAILY
Eliquis 5 MG tablet
5 mg PO BID
albuterol sulfate [Ventolin HFA] 90 MCG/PUFF HFA aerosol inhaler
2 puff inhalation R QIDPRN PRN (Reason: shortness of breath, wheezing)
furosemide 40 MG tablet
40 mg PO DAILY Qty: 30 11RF
amiodarone [Pacerone] 200 MG tablet
200 mg PO DAILY
acetaminophen 500 mg Tablet
1,000 mg PO BID
Camzyos 5 mg Capsule
15 mg PO DAILY
Rx Instructions:
Patient started 15 mg on 06/04/2024 increased from 10 mg
atorvastatin [Lipitor] 20 mg Tablet
20 mg PO DAILY
fluticasone propion-salmeterol 113-14 mcg/actuation aerosol powdr breath activated
1 inh INHALATION R BID
furosemide [Lasix] 20 mg Tablet
20 mg PO QPM
metoprolol tartrate 50 mg tablet
50 mg PO BID
Discharge Orders:
Discharge Patient (As Directed); Ordered 06/12/24
Ordered By: Alex Jensen
Discharge Date and Time
Print Language: UKRAINIAN
--- NOTE | 2024-06-14 11:04 | W.HF.CON ---
Heart Failure
- LV Function
Left ventricular function study result: LV Ejection fraction >/= 50%
Ejection Fraction Percentage: 65-70
- ARNI
Patient already on ARNI: No
Heart Failure ARNI Not Indicated: LV Ejection Fraction >/= 40%
- ACEI/ARB
Patient already on ACEI/ARB: No
Heart Failure ACEI/ARB Not Indicated: LV Ejection Fraction > 40%
- Beta Markus
Patient already on Evidence Based Beta Markus: No
Heart Failure Evidence Based Beta Markus Not Indicated: LV Ejection Fraction > 40%
- Mineralocorticord Receptor Antagonist
Patient already on MRA: No
Heart Failure MRA Not Indicated: LV Ejection Fraction > 40%
- SGLT-2 Inhibitor
Patient already on SGLT-2 Inhibitor: No
Heart Failure SGLT-2 Inhibitor Contraindication: Patient Refusal
- Afib Anticoagulation
Patient already on Anticoagulation for Afib: Yes
- NYHA CHF Classification
NYHA CHF Classification Level: Class III - Symptoms w/ min exertion, interferes w/ nml daily activity
- ACC/AHA Stage
ACC/AHA Stage: Stage C: Symptomatic Heart Failure
== END 2024-06-12 11:45 | disposition home or self-care (01) | DRG 291 ==
LOC: 4 EAST ACU 14:36
PROVIDERS: Clinical Nurse Specialist Family Health; Emergency Medicine; ADMITTING PHYSICIAN Student in an Organized Health Care Education/Training Program; ATTENDING PHYSICIAN Internal Medicine; CONSULT PHYSICIAN Internal Medicine Cardiovascular Disease; EMERGENCY PHYSICIAN Emergency Medicine; FAMILY PHYSICIAN Family Medicine
DX: I11.0 Hypertensive heart disease with heart failure (principal); I50.33 Acute on chronic diastolic (congestive) heart failure; Z66 Do not resuscitate; I42.2 Other hypertrophic cardiomyopathy; Z87.891 Personal history of nicotine dependence; I48.0 Paroxysmal atrial fibrillation; I25.10 Atherosclerotic heart disease of native coronary artery without angina pectoris; J44.9 Chronic obstructive pulmonary disease, unspecified; Z79.01 Long term (current) use of anticoagulants; Z95.3 Presence of xenogenic heart valve; Z11.52 Encounter for screening for COVID-19
CPT/HCPCS: 71046; 80053; 80061; 83735; 83880; 84484; 85025; 87502; 87811; 93005; 93306; 94640; 96374; 97116; 97161; 99285

== ENCOUNTER → 2024-06-28 11:30 | Outpatient (REF) | payer MEDICARE, SELFPAY | LOC: RCS 11:30 | PROVIDERS: ATTENDING PHYSICIAN Internal Medicine Cardiovascular Disease; FAMILY PHYSICIAN Family Medicine | DX: I42.2 Other hypertrophic cardiomyopathy (principal); R06.02 Shortness of breath | CPT/HCPCS: 93306 ==

== ENCOUNTER 2024-08-13 08:44 | Day surgery (SDC) | payer MEDICARE, SELFPAY ==
[2024-08-13] MEDS: ELIQUIS 5 MG PO (10:24)
== END 2024-08-13 12:40 | disposition home or self-care (01) ==
LOC: CATH 08:44
PROVIDERS: ATTENDING PHYSICIAN Internal Medicine Cardiovascular Disease; FAMILY PHYSICIAN Family Medicine; OTHER PHYSICIAN Internal Medicine Cardiovascular Disease
DX: I08.3 Combined rheumatic disorders of mitral, aortic and tricuspid valves (principal); Z95.3 Presence of xenogenic heart valve; I51.3 Intracardiac thrombosis, not elsewhere classified; I08.8 Other rheumatic multiple valve diseases; I31.39 Other pericardial effusion (noninflammatory)
CPT/HCPCS: 93312; 93320; 93325

== ENCOUNTER 2024-08-23 12:01 | Inpatient (IN) | payer MEDICARE, SELFPAY ==
[2024-08-23] VITALS (7 sets, daily range): BP systolic 110–142; BP diastolic 58–87; BMI 27.7
--- NOTE | 2024-08-23 08:49 | ED.GENMED ---
History of Present Illness
General
Chief Complaint: Cardiac Symptoms
Source: patient
Exam Limitations: none
Time Seen by Provider: 08/23/24 08:44
History of Present Illness
History of Present Illness:
See MDM
Past History
Past History
ED Past Medical History: Arrthythmia (Atrial fibrillation), CHF, COPD, GERD, HTN, Valvular disease (Endocarditis) and Other
ED Past Surgical History: Appendectomy, Cardiac and Other
Social History
Tobacco: Non-smoker
Alcohol: None
Drug: None
Phy Exam
Physical Exam
Physical Exam:
See MDM
Course
Orders/Labs/Results
Orders:
Orders
08/23/24 08:30
Electrocardiogram (*1) Urgent
Reason for Study: Chest Pain
08/23/24 08:31
EKG- Treatment ONCE
08/23/24 08:47
Diltiazem HCl [Cardizem] 10 mg IV NOW STA
CR Chest - 2 Views Urgent
Comment:
Reason For Exam: SOB, leg swelling
08/23/24 08:53
Complete Blood Count/With Diff Urgent
Comprehensive Metabolic Panel Urgent
NT-proBNP Urgent
Prothrombin Time Urgent
Troponin I Urgent
08/23/24 09:53
Furosemide [Lasix] 40 mg IV NOW STA
Abnormal Lab Results
08/23/24
08:53
Hct 50.1 H %
(37.0-47.0)
MCHC 31.5 L g/dL
(33.0-37.0)
RDW 14.6 H %
(11.5-14.5)
Absolute Neuts (auto) 7.6 H 10^3/uL
(1.4-6.5)
Absolute Lymphs (auto) 0.7 L 10^3/uL
(1.2-3.4)
Absolute Monos (auto) 0.8 H 10^3/uL
(0.1-0.6)
Neutrophils % 82.9 H %
(42.2-75.2)
Lymphocytes % 7.3 L %
(20.5-51.1)
PT > 100 H Sec
(11.4-14.6)
INR > 8 H*
BUN 25 H mg/dl
(7-17)
Glucose 120 H mg/dl
(70-99)
08/23/24 08:53
08/23/24 08:53
Vital Signs
Initial and Last Documented VS:
Initial Vital Signs
Temp Pulse Resp BP Pulse Ox
98.0 F 93 16 116/76 93
08/23/24 08:34 08/23/24 08:34 08/23/24 08:34 08/23/24 08:34 08/23/24 08:34
Last Documented Vital Signs
Temp Pulse Resp BP Pulse Ox
98.0 F 72 21 122/75 92
08/23/24 08:34 08/23/24 09:15 08/23/24 09:15 08/23/24 09:00 08/23/24 09:15
MDM/Problems Addressed
Differential Diagnosis Includes:
HPI and MDM Narrative:
78-year-old female presenting for evaluation of shortness of breath and palpitations. Patient believes she is back in A-fib. She started noticing worsening leg swelling last night so she took an extra dose of Lasix. She states that she was on
Eliquis but this was transitioned to Coumadin about a week ago when they realized that she had a clot in her atrium.
Patient is in A-fib. She is rate controlled. Will give dose of Cardizem. Will obtain basic blood work and rule out any evidence of congestive heart failure. Based on recent atrial clot, she is not a synchronized cardioversion candidate
Physical exam
General: Well appearing and non-toxic
HEENT: protecting airway
Neck: appears supple
CV: No evidence of cyanosis. Irregular rhythm
Resp: No accessory muscle use. Shallow breath sounds at bases
Abd: Non-distended
Extremities: No deformities. +1 pitting edema bilateral lower extremities
Neuro: alert
Psych: Normal affect
Skin: Intact
Problems Addressed including Acute and Chronic Conditions affecting care:
1. A-fib
Acuity: acute
Prognosis: unstable
Details: Will give IV Cardizem bolus and attempt to chemically cardiovert. She is not a synchronized cardioversion candidate given the left atrial thrombus noted on recent echo
2. Shortness of breath and leg swelling
Acuity: acute
Prognosis: stable
Details: Will obtain chest x-ray and BNP to look for any evidence of congestive heart failure
Updates
Chest x-ray consistent with pleural effusion and CHF exacerbation. Patient remains rate controlled A-fib. Will admit for IV Lasix and further workup
INR greater than 8. Hospitalist made aware. No bleeding issues noted
Differential Diagnosis (but not limited to): Congestive heart failure, pulmonary edema, symptomatic A-fib
Testing considered: D-dimer
Drug therapy (if applicable): OTC meds, please see d/c instruction regarding Rx drugs
Amount and/or Complexity of Data Reviewed
Clinical info obtained from: Patient
External data reviewed: N/A
Labs I independently reviewed (but not limited to): BNP elevated
Radiology: X-ray independently reviewed: Chest x-ray shows pleural effusions and CHF exacerbation
Pulse Ox: not hypoxic
EKG independently reviewed: A-fib, right axis, no STEMI
Medical Clinic Manager: Rate controlled A-fib
Critical Care: The high probability of a clinically significant, sudden or life threatening deterioration of the cardiovascular and pulmonary system(s) required my full and direct attention, intervention and personal management. The aggregate
critical care time was 33 minutes. This time is in addition to time spent performing reported procedures but includes the following:
[x] Data Review and interpretation
[x] Patient assessment and monitoring of vital signs
[x] Documentation
[x] Medication orders and management
Risk of Complication:
Social Determinants of health: Good social support
Discussed with other providers: Hospitalist
Escalation of Care includes Admit/Obs: Given A-fib and congestive heart failure, will start IV Lasix and admit
Occasional wrong word or 'sound a like' substitutions may have occurred due to the inherent limitations of voice recognition software. Read the chart carefully and recognize, using context, where substitutions have occurred.
*Critical Care Note
Total Time (30-74mins, 75-104mins- exclusive of procedures): 33 min
ED Attending Note
-
Portions of this chart may have been created with voice recognition software.� Occasional wrong word or��sound alike� substitutions may have occurred due to the inherent limitations of voice recognition software.
Discharge Plan
Departure
Patient Disposition: Admit
Date of Disposition: 08/23/24
Time of Disposition: 09:56
Admit to: Med/Surg
Presentation/result/management discussed w/ accepting MD/DO: Hospitalist
Discharge Problem:
Acute CHF
Prescriptions:
No Action
Eliquis 5 MG tablet
5 mg PO BID
albuterol sulfate [Ventolin HFA] 90 MCG/PUFF HFA aerosol inhaler
2 puff inhalation TID
amiodarone [Pacerone] 200 MG tablet
200 mg PO DAILY
Camzyos 5 mg Capsule
15 mg PO DAILY
Rx Instructions:
Patient started 15 mg on 06/04/2024 increased from 10 mg
atorvastatin [Lipitor] 20 mg Tablet
20 mg PO DAILY
fluticasone propion-salmeterol 113-14 mcg/actuation aerosol powdr breath activated
2 inh INHALATION R BID
metoprolol tartrate 50 mg tablet
25 mg PO BID
furosemide 40 MG tablet
40 mg PO BID
Referrals:
UNKNOWN - PT DOES,NOT KNOW [Family Provider] -
Interventions
Interventions:
*Risk Screen - Suicide Last Done: 08/23/24 08:34
*Neglect/Abuse Screening Last Done: 08/23/24 08:34
Discharge Date and Time
Print Language: LITHUANIAN
[2024-08-23] MEDS: CARDIZEM 10 MG IV (09:03)
[2024-08-23 09:06] LABS: % Basophils 0.4 % (0-2); % Eosinophils 0.3 % (0-6); % Immature Granulocytes 0.4 % (0-0.5); % Lymphocytes 7.3 % (20.5-51.1); % Monocytes 8.7 % (1.7-9.3); % Neutrophils 82.9 % (42.2-75.2); Absolute Lymphocytes 0.7 10^3/uL (1.2-3.4); Absolute Monocytes 0.8 10^3/uL (0.1-0.6); Absolute Neutrophils 7.6 10^3/uL (1.4-6.5); Hematocrit 50.1 % (37.0-47.0); Hemoglobin 15.8 g/dL (12.0-16.0); Mean Corp Hgb Conc. 31.5 g/dL (33.0-37.0); Mean Corpuscular Hgb 30.2 pg (27.0-31.0); Mean Corpuscular Volume 95.6 fL (81.0-99.0); Mean Platelet Volume 9.3 fL (7.4-10.4); Nucleated Red Blood Cells % 0 %; Platelet Count 141 10^3/uL (130-400); Red Blood Cell Count 5.24 10^6/uL (4.20-5.40); Red Cell Dist. Width 14.6 % (11.5-14.5); White Blood Cell Count 9.2 10^3/uL (4.8-10.8)
[2024-08-23 09:35] LABS: NT-proBNP 8220 pg/ml
[2024-08-23 09:48] LABS: ALT (SGPT) 27 U/L (0-35); AST (SGOT) 33 U/L (14-36); Albumin 4.8 g/dl (3.5-5.0); Alkaline Phosphatase 99 U/L (38-126); Blood Urea Nitrogen 25 mg/dl (7-17); Calcium 9.4 mg/dl (8.4-10.2); Carbon Dioxide 24 mmol/L (22-30); Chloride 105 mmol/L (98-107); Estimated Creatinine Clearance 43 ml/min; Glucose 120 mg/dl (70-99); Potassium 3.8 mmol/L (3.5-5.1); Sodium 142 mmol/L (135-145); Total Bilirubin 1.1 mg/dl (0.2-1.3); Total Protein 7.1 g/dl (6.3-8.2); eGFR 58.02
[2024-08-23 09:52] LABS: PT > 100 Sec (11.4-14.6)
[2024-08-23 09:53] LABS: INR > 8
[2024-08-23] MEDS: LASIX 40 MG IV (10:02)
--- NOTE | 2024-08-23 12:27 | HPS.HSE ---
Family Physician
-
Family Physician: NOT KNOW UNKNOWN - PT DOES
Chief Complaint
-
Shortness of breath
History of Present Illness
Patient presents with 2 days of shortness of breath mostly with exertion. She also started to notice increased lower extremity edema. Normally her weight is 149 pounds. Denies any orthopnea. No chest pain or palpitation.
She is known to have A-fib. She had a YUE last week. Apparently there was a clot in the atrium so [employer]person [employer] was switching from Eliquis to Coumadin since a week now. Her INR today is more than 8. She was never on Coumadin before.
She is s/p MVR in the past that apparently is failing. She is due to see a surgeon in [facility] in the coming days for evaluation of MVR.
Denies any cough, fever or chills.
No nausea vomiting.
Medical History
Past Medical History
Past Medical History: Reports Other
Additional Past Medical History:
[id number]
chronic CHF
COPD,
GERD
HTN,
history of endocarditis.
Hx hypertrophic cardiomyopathy
Chronic left knee pain
Past Surgical History: Reports Other
Additional Past Surgical History:
Appendectomy
Left knee surgery with reconstruction
Mitral valve tissue repair July 2014
A-fib cardioversion 2019
PVI ablation 04/21/2023
Social History
Tobacco: Former Smoker (40 years 1 pack a day quit 2014)
Alcohol: Daily (1 beer daily)
Drug: None
Personal: Single
Living: Alone
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
Family History
Family History: Not pertinent and Other (Both parents were killed in an automobile accident when she was 16 she was then sent to boarding school with their life insurance as she states no one wanted her)
Allergies / Home Medications
Allergies reflects when Allergies were last updated in [employer].
Home Medications with original date entered in [employer]
Allergy/Medication List:
Allergies
Allergy/AdvReac Type Severity Reaction Status Date / Time
irbesartan Allergy Unknown Verified 12/06/23 11:21
Penicillins Allergy Hives Verified 12/06/23 11:21
procaine HCl [From Novocain] Allergy Unknown Verified 12/06/23 11:21
Home Medications
apixaban 5 mg tablet (Eliquis) 5 mg PO BID Blood clot prevention/tx 02/21/20
ascorbic acid (vitamin C) 500 mg tablet (Vitamin C) 1,000 mg PO DAILY Supplement 02/21/20
albuterol sulfate 90 mcg/actuation aerosol inhaler (Ventolin HFA) 2 puff inhalation R QIDPRN PRN shortness of breath, wheezing 07/11/21
furosemide 40 mg tablet 40 mg PO DAILY Fluid retention/Swelling #30 tabs 07/13/21
acetaminophen 500 mg tablet 1,000 mg PO BID Pain 05/27/22
amiodarone 200 mg tablet (Pacerone) 200 mg PO DAILY Arrhythmia 05/27/22
metoprolol tartrate 50 mg tablet 50 mg PO BID 30 days #60 tabs 06/08/22
mavacamten 5 mg capsule (Camzyos) 15 mg PO DAILY CARDIOMYOPATHY 02/14/23
atorvastatin 20 mg tablet (Lipitor) 20 mg PO DAILY High Cholesterol 06/21/23
fluticasone 113 mcg-salmeterol 14 mcg/actuation breath activated powdr 1 inh inhalation R BID Lung/Breathing Issues 06/21/23
furosemide 20 mg tablet (Lasix) 20 mg PO QPM 06/10/24
Review of Systems
-
A 12 point ROS was completed and negative except as noted: Yes
Physical Exam
Vital Signs
Vital Signs
Temp Pulse Resp BP Pulse Ox
98.0 F 91 21 142/87 92
08/23/24 08:34 08/23/24 11:45 08/23/24 09:15 08/23/24 10:00 08/23/24 11:15
Physical Exam
General: Comfortable
HEENT: Moist mucous membranes
Respiratory: Crackles (Bibasilar) and Accessory Resp Muscle Use; No Wheezes or Decreased Breath Sounds
Cardiac: Regular Rhythm, Irregular Rhythm and Tachycardia
GI: Soft and Non Tender
Musculoskeletal: No No Edema (Trace bilateral lower extremity edema)
Neuro: AO x 3
Psych: Calm; No Confused
Laboratory Results
-
08/23/24 08:53
08/23/24 08:53
Laboratory Results
PT > 100 Sec (11.4-14.6) H 08/23/24 08:53
INR > 8 H* 08/23/24 08:53
Total Bilirubin 1.1 mg/dl (0.2-1.3) 08/23/24 08:53
AST 33 U/L (14-36) 08/23/24 08:53
ALT 27 U/L (0-35) 08/23/24 08:53
Alkaline Phosphatase 99 U/L (38-126) 08/23/24 08:53
Troponin I 0.030 ng/ml 08/23/24 08:53
Data Reviewed
-
Diagnostic Radiology: Report Reviewed by me (Chest x-ray)
Lab Data: Labs Reviewed by me
Impression/Plan
-
Acute CHF decompensation pulm edema. Noted to have normal EF. Rule out A-fib related. Patient presented with RVR. Known to have A-fib. Also evaluate for failing MVR as a possible etiology. 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
YUE from 10 days ago.Her BNP is more than baseline. Her weight is 151 pounds and baseline weight is 149 pounds.
Admit to telemetry and follow heart rate control. Continue with amiodarone,
Start on IV Lasix.
Consult cardiology.
Follow weights.
Atrial fibrillation with RVR-patient received Cardizem bolus in the ED with improved heart rate. Continue with amiodarone and beta-viet. Follow on telemetry. Hold on anticoagulation supratherapeutic INR
Atrial clot-patient was getting transition from Eliquis to Coumadin. New to Coumadin since a week. Supratherapeutic INR but no evidence of external bleeding. H&H stable. Hold anticoagulants and follow INR daily.
Cardiomyopathy-on Camzyos which I will continue
Full code
--- NOTE | 2024-08-23 15:17 | CON.CAR ---
Addendum entered and electronically signed by Gaston Perea DO 08/23/24 16:56:
I saw and examined the patient.
The Logistics/Shipper's note was reviewed and I agree with the note.
Comment:
Plan:
ER today with complaints of increased CLAYTON and resting SOB and cardiology is now consulted. Patient has a history of tissue MVR from 2014 and then more recently a diagnosis of hypertrophic cardiomyopathy and was started on Camzyos that is being
managed at [facility]. Patient was admitted to this hospital from 06/10/2024 until 06/12/2024 with acute HF and was diagnosed with IV Lasix. After that patient was seen in the office in June and had ongoing decline in exertional tolerance that was
concerning for possible worsening hypertrophic cardiomyopathy or bioprosthetic mitral valve stenosis. Patient was sent for echo and then followed up at [facility] and had YUE and cardiac cath. On YUE there was evidence of moderate mitral stenosis and
the mean gradient was 8 mmHg and only mild , there was mild concentric LVH, but no concern for worsening gradient. Patient then had R/LHC that showed PCWP 17, severe PHTN with PAP 42 mmHg and it appeared to be severe MS with a mean gradient of
10.05 mmHg and a calculated mitral valve area by Gorlin equation of 1.04 cm sq. patient was seen by our office, on 08/11/2024 who was noted to be back in atrial fibrillation with worsened exertional symptoms and weight gain. Patient was started on
Eliquis at the end of that OV. Patient was referred for YUE/CV at that time was found to have definite thrombus in the MARIANELA and then also spontaneous echo contrast in the LA. Eliquis was stopped and patient was started on warfarin, patient reports
she is taking Eliquis 5 mg BID and warfarin 5 mg daily and was due for an INR today. Patient came to the ER with resting SOB and labs showed an INR of greater than 8.
Remains in aFib
Hold anticoagulation and resume Coumadin once INR improved.
She knows not to take Eliquis anymore especially when on coumadin.
Outpatient dose of amiodarone 200 mg daily has been continued for adjunct rate control.
Cont Lopressor, increased for better rate control.
Lasix 80 mg IV BID for diuresis.
-Most recent dose of diuretic was Lasix 80 mg BID following her YUE and cath there on 07/29/2024.
-EF 65% by YUE 08/13/24.
-Patient with known bioprosthetic mitral valve stenosis and MPG by cath at [facility] 07/29/24 was 10.05. Patient is scheduled to see the surgeon at [place], [place] on 09/15/24 to discuss TMVR and have a CT scan.
-Patient currently taking Camzyos 15 mg daily for known HOCM that is managed at [facility]
Original Note:
Consultation
Consultation Request
Date/Time Consultation Requested: 08/23/24
Date/Time Consultation Performed: 08/23/24
Requesting Provider: Dr. Brown
Performing Provider: Dr. Perea
Reason for Consultation: CLAYTON, CHF, MS, supratherapeutic INR
Medical History
-
History of Present Illness:
Patient came to ER today with complaints of increased CLAYTON and resting SOB and cardiology is now consulted. Patient has a history of tissue MVR from 2014 and then more recently a diagnosis of hypertrophic cardiomyopathy and was started on Camzyos
that is being managed at [facility]. Patient was admitted to this hospital from 06/10/2024 until 06/12/2024 with acute HF and was diagnosed with IV Lasix. After that patient was seen in the office in June and had ongoing decline in exertional tolerance
that was concerning for possible worsening hypertrophic cardiomyopathy or bioprosthetic mitral valve stenosis. Patient was sent for echo and then followed up at [facility] and had YUE and cardiac cath as noted above. On YUE there was evidence of
moderate mitral stenosis and the mean gradient was 8 mmHg and only mild , there was mild concentric LVH, but no concern for worsening gradient. Patient then had R/LHC that showed PCWP 17, severe PHTN with PAP 42 mmHg and it appeared to be severe
MS with a mean gradient of 10.05 mmHg and a calculated mitral valve area by Gorlin equation of 1.04 cm sq. patient was seen by our office, on 08/11/2024 who was noted to be back in atrial fibrillation with worsened exertional symptoms and weight gain.
Patient was started on Eliquis at the end of that OV. Patient was referred for YUE/CV at that time was found to have definite thrombus in the MARIANELA and then also spontaneous echo contrast in the LA. Eliquis was stopped and patient was started on
warfarin, patient reports she is taking Eliquis 5 mg BID and warfarin 5 mg daily and was due for an INR today. Patient came to the ER with resting SOB and labs showed an INR of greater than 8.
PMH:
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
Chronic HFpEF
Spontaneous echo contrast in the left atrium and definite thrombus in the MARIANELA by YUE 08/13/2024
Eliquis transitioned to warfarin for LA smoke by YUE 08/13/24
Paroxysmal atrial fibrillation
s/p PVI 04/2023
HCM, severe concentric LVH, on Camzyos dosing changes managed at [facility]
PHTN
s/p RHC at [facility] 12/2023
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
Mild , peak to peak gradient 11 mmHg by cath at [facility] 07/29/24
h/o endocarditis
Hypertension
Hyperlipidemia
COPD
Past Medical History
Past Medical History: Other (As per HPI)
Past Surgical History: Appendectomy, Cardiac (Bioprosthetic mitral valve replacement 2014) and Orthopedic
Social History
Tobacco: Former Smoker
Alcohol: Daily (1 beer a day)
Drug: None
Personal: Single
Living: Alone
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
Family History
Family History: Reviewed & Not Pertinent
Allergies / Home Medications
Allergy/AdvReac Type Severity Reaction Status Date / Time
irbesartan Allergy As per pt- Verified 08/23/24 08:38
'I think
this is a
mistake.'
Penicillins Allergy Hives-As Verified 08/23/24 08:38
per pt:
'Hives in
my mouth
as a child'
procaine HCl [From Novocain] Allergy As per pt: Verified 08/23/24 08:38
no allergy
to Novocain
�Medication �Instructions �Recorded �Confirmed �Type
apixaban 5 mg tablet (Eliquis) 5 mg PO BID Blood clot 02/21/20 08/23/24 History
prevention/tx
albuterol sulfate 90 mcg/actuation 2 puff inhalation R TIDPRN PRN SOB 07/11/21 08/23/24 History
aerosol inhaler (Ventolin HFA)
amiodarone 200 mg tablet (Pacerone) 200 mg PO DAILY Arrhythmia 05/27/22 08/23/24 History
mavacamten 5 mg capsule (Camzyos) 15 mg PO DAILY CARDIOMYOPATHY 02/14/23 08/23/24 History
atorvastatin 20 mg tablet (Lipitor) 20 mg PO DAILY High Cholesterol 06/21/23 08/23/24 History
fluticasone 113 mcg-salmeterol 14 2 inh inhalation R BID 06/21/23 08/23/24 History
mcg/actuation breath activated Lung/Breathing Issues
powdr
metoprolol tartrate 50 mg tablet 50 mg PO BID Blood Pressure 06/10/24 08/23/24 History
furosemide 40 mg tablet 40 mg PO DAILY Fluid 08/13/24 08/23/24 History
retention/Swelling
acetaminophen 325 mg tablet 650 mg PO Q4HPRN PRN MILD PAIN 08/23/24 08/23/24 History
(Tylenol)
ascorbic acid (vitamin C) 500 mg 500 mg PO DAILY 08/23/24 08/23/24 History
tablet (Vitamin C)
warfarin 5 mg tablet 5 mg PO QPM 08/23/24 08/23/24 History
Review of Systems
-
History Source: Patient
All other systems: Negative unless noted
Physical Exam
Vital Signs
Temp Pulse Resp BP Pulse Ox
98.0 F 84 21 123/63 93
08/23/24 08:34 08/23/24 15:00 08/23/24 09:15 08/23/24 14:24 08/23/24 15:05
GEN: No distress, awake, alert, oriented x3
HEENT: MMM
LUNGS: RA. Bibasilar rales without wheeze
CV: Reg, S1/S2, 2/6 syst murmur
EXT: +1 B/L LE edema. No clubbing, cyanosis or lesions B/L
NEURO: Gross non-focal
SKIN: Warm, dry, no rash
Lab Results
08/23/24 08:53
08/23/24 08:53
Troponin I 0.030 ng/ml 08/23/24 08:53
Rez-S-Trihorjxdgy Pept 8220 pg/ml 08/23/24 08:53
Impression / Plan
-
PCP: Antonieta Clark MD
CDY: Yahaira Evans MD locally and Dr. Pat at [facility] ([phone])
Impression:
Admitted with SOB and supratherapeutic INR 08/23/24
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
Acute on chronic HFpEF
Spontaneous echo contrast in the left atrium and definite thrombus in the MARIANELA by YUE 08/13/2024
Supratherapeutic INR
Eliquis transitioned to warfarin for LA smoke by YUE 08/13/24
Paroxysmal atrial fibrillation
s/p PVI 04/2023
HCM, severe concentric LVH, on Camzyos dosing changes managed at [facility]
PHTN
s/p RHC at [facility] 12/2023
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
Mild , peak to peak gradient 11 mmHg by cath at [facility] 07/29/24
h/o endocarditis
Hypertension
Hyperlipidemia
COPD
RHC 12/24/2023: Performed at [facility], PCWP consistent with severe PHTN, PVR 8 Wood units and mildly depressed assumed [place] cardiac index
R/LHC 07/29/2024: Pending study, PCWP 17 mmHg, severe PHTN with PAP 42 mmHg, PVR 6.58 Wood units, CI 2.29, severe mitral stenosis with mean gradient 10.05 mmHg and calculated mitral valve area by Gorlin equation 1.04 cm sq, noncritical CAD, LM
luminal irregularities, LAD luminal irregularities, circumflex 50% mid lesion otherwise luminal irregularities, RCA luminal irregularities
YUE 06/07/22: EF 70-75%, severe cLVH, well seated bioprosthetic MV, mild MS, mild , mild AR
Echo 06/23/23: EF 70 to 75%, mild concentric LVH, mid cavitary gradient is 76/29 at rest and 89/35 with Valsalva, bioprosthetic mitral valve with mean gradient 8 mmHg and no MR, moderate peak/mean 67/37 mmHg and ZACHARY 1.3 cm sq, some transvalvular
gradient could be secondary to severe LVH, mild pulmonic regurgitation
Echo 10/08/23: LVOT peak gradient 5 mmHg at rest up to 31 with Valsalva, EF 75%, hyperdynamic LV
Echo 12/01/23: EF 60%, mid cavitary obstruction with LVOT gradient 20 mmHg at rest increased to 27 with Valsalva, normal function of bioprosthetic mitral valve, moderate TR with PAP 88 mmHg
Echo @ [facility] 05/25/2024: EF 75%, LVIS measures 1.5 cm, LVOT peak gradient at rest measures 16 mmHg, with Valsalva up to 51 mmHg, GLS 11.5%, bioprosthetic mitral valve with trace MR with peak/mean gradients 28/11 mmHg, mild with peak/mean gradients
21/11 mmHg, mild to moderate AR, mild TR, estimated PAP 87 mmHg
Echo 06/10/2024: LV small size with severe concentric LVH (interventricular septum 2.3 cm, posterior wall 2 cm), no WMA, EF 65 to 70%, mid cavitary gradient of at least 5 mmHg up to 23 with Valsalva, LVOT gradient at rest is 9 with Valsalva up to 18,
normal RV size and function, moderate TR with PAP 80 to 85 mmHg, compared to echo from 12/01/2023 at [facility] RV is now mildly dilated consistent with PHTN seen on most recent workup and aortic valve now with moderate insufficiency
YUE 07/29/24: [facility] study, normal LV size, mildly increased LV wall thickness of mild concentric LVH, EF 60%, mildly decreased RV systolic function with mild dilation, no thrombus present in the left atrial appendage, bioprosthetic mitral valve
prosthesis with moderate mitral valve leaflet calcification and trace MR, moderate mitral stenosis with mean mitral valve gradient 8 mmHg, mild , mild aortic regurgitation
YEU 08/13/24: [facility] at [facility] study, EF 65%, moderately dilated RV with mild RV hypokinesis, severely dilated LA with evidence of spontaneous echo contrast and definite MARIANELA thrombus, bioprosthetic mitral valve with marked thickening and
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
Plan:
-Patient came to ER today with complaints of increased CLAYTON and resting SOB and cardiology is now consulted. Patient has a history of tissue MVR from 2014 and then more recently a diagnosis of hypertrophic cardiomyopathy and was started on Camzyos
that is being managed at [facility]. Patient was admitted to this hospital from 06/10/2024 until 06/12/2024 with acute HF and was diagnosed with IV Lasix. After that patient was seen in the office in June and had ongoing decline in exertional tolerance
that was concerning for possible worsening hypertrophic cardiomyopathy or bioprosthetic mitral valve stenosis. Patient was sent for echo and then followed up at [facility] and had YUE and cardiac cath as noted above. On YUE there was evidence of
moderate mitral stenosis and the mean gradient was 8 mmHg and only mild , there was mild concentric LVH, but no concern for worsening gradient. Patient then had R/LHC that showed PCWP 17, severe PHTN with PAP 42 mmHg and it appeared to be severe
MS with a mean gradient of 10.05 mmHg and a calculated mitral valve area by Gorlin equation of 1.04 cm sq. patient was seen by our office, on 08/11/2024 who was noted to be back in atrial fibrillation with worsened exertional symptoms and weight gain.
Patient was started on Eliquis at the end of that OV. Patient was referred for YUE/CV at that time was found to have definite thrombus in the MARIANELA and then also spontaneous echo contrast in the LA. Eliquis was stopped and patient was started on
warfarin, patient reports she is taking Eliquis 5 mg BID and warfarin 5 mg daily and was due for an INR today. Patient came to the ER with resting SOB and labs showed an INR of greater than 8.
-ECG reviewed by me Afib with HR 95.
-Patient remains in Afib by ECG in the ER today. Afib was also seen in the office 08/11/24 and is likely contributing to acute HF.
-Patient was sent for YUE/CV 08/13/24 and was found to have MARIANELA clot and LA smoke and CV was deferred. Eliquis changed to warfarin and patient has been taking Eliquis 5 mg BID plus warfarin 5 mg daily since 08/16/24. INR greater than 8 in the ER
08/23/24. Will stop Eliquis. Would not give warfarin tonight. Recheck INR in AM.
-Outpatient dose of amiodarone 200 mg daily has been continued for adjunct rate control.
-Outpatient dose of Lopressor increased to 75 mg BID to help with rate control.
-Weight is only up 2 lbs from dry weight, but pro-BNP is 8220 compared to 3630 during CHF admission 06/10/24.
-Most recent dose of diuretic was Lasix 80 mg BID following her YUE and cath there on 07/29/2024. Will adjust Lasix to 80 mg IV BID during our initial attempts at diuresis. Patient may require a higher dose of Lasix.
-EF 65% by YUE 08/13/24.
-Patient with known bioprosthetic mitral valve stenosis and MPG by cath at [facility] 07/29/24 was 10.05. Patient is scheduled to see the surgeon at [place], [place] on 09/15/24 to discuss TMVR and have a CT scan.
-Patient is not sure if [facility] knows about the MARIANELA clot and if this will affect her surgery.
-Patient currently taking Camzyos 15 mg daily for known HOCM that is managed at [facility]
[2024-08-23] MEDS: PACERONE PO (16:14)
[2024-08-23] MEDS: LOPRESSOR PO (16:14)
[2024-08-23] MEDS: LIPITOR PO (16:14)
[2024-08-23] MEDS: LASIX 80 MG IV (16:15)
[2024-08-23 18:30] LABS: Troponin I 0.017 ng/ml
[2024-08-23] MEDS: ADVAIR HFA 115/21 MCG INHALER 2 PUFF INH (19:22)
[2024-08-23] MEDS: LOPRESSOR 50 MG PO (19:58)
[2024-08-23 22:19] LABS: Troponin I 0.023 ng/ml
[2024-08-24 03:43] VITALS: BP 146/83
[2024-08-24 06:00] VITALS: BMI 27.0
[2024-08-24 07:42] VITALS: BP 139/76
[2024-08-24] MEDS: ADVAIR HFA 115/21 MCG INHALER 2 PUFF INH ×2 (07:59→19:35)
[2024-08-24 08:12] LABS: PT 72.7 Sec (11.4-14.6)
[2024-08-24 08:17] LABS: INR > 8.0
[2024-08-24] MEDS: TYLENOL 650 MG PO ×2 (08:46→20:50)
[2024-08-24] MEDS: LASIX 80 MG IV ×2 (08:46→16:00)
[2024-08-24] MEDS: PACERONE 200 MG PO (08:47)
[2024-08-24] MEDS: LOPRESSOR 50 MG PO (08:47)
[2024-08-24] MEDS: VITAMIN C 500 MG PO (08:47)
[2024-08-24] MEDS: LIPITOR 20 MG PO (08:47)
[2024-08-24 08:52] LABS: Hematocrit 46.7 % (37.0-47.0); Hemoglobin 14.8 g/dL (12.0-16.0); Mean Corp Hgb Conc. 31.7 g/dL (33.0-37.0); Mean Corpuscular Hgb 30.5 pg (27.0-31.0); Mean Corpuscular Volume 96.1 fL (81.0-99.0); Mean Platelet Volume 9.6 fL (7.4-10.4); Platelet Count 112 10^3/uL (130-400); Red Blood Cell Count 4.86 10^6/uL (4.20-5.40); Red Cell Dist. Width 14.5 % (11.5-14.5); White Blood Cell Count 6.2 10^3/uL (4.8-10.8)
[2024-08-24 09:01] LABS: Blood Urea Nitrogen 21 mg/dl (7-17); Carbon Dioxide 27 mmol/L (22-30); Chloride 101 mmol/L (98-107); Estimated Creatinine Clearance 53 ml/min; Glucose 114 mg/dl (70-99); Potassium 3.4 mmol/L (3.5-5.1); Sodium 140 mmol/L (135-145); eGFR > 60.00
--- NOTE | 2024-08-24 11:04 | W.PN.CARDCBS ---
Addendum entered and electronically signed by Gaston Perea DO 08/24/24 12:00:
I saw and examined the patient.
The Finance Executive's note was reviewed and I agree with the note.
Comment:
Presented to ER with complaints of increased CLAYTON and resting SOB and cardiology is now consulted. Patient has a history of tissue MVR from 2014 and then more recently a diagnosis of hypertrophic cardiomyopathy and was started on Camzyos that is
being managed at [facility]. Patient was admitted to this hospital from 06/10/2024 until 06/12/2024 with acute HF and was diagnosed with IV Lasix. After that patient was seen in the office in June and had ongoing decline in exertional tolerance that
was concerning for possible worsening hypertrophic cardiomyopathy or bioprosthetic mitral valve stenosis. Patient was sent for echo and then followed up at [facility] and had YUE and cardiac cath. On YUE there was evidence of moderate mitral stenosis
and the mean gradient was 8 mmHg and only mild , there was mild concentric LVH, but no concern for worsening gradient. Patient then had R/LHC that showed PCWP 17, severe PHTN with PAP 42 mmHg and it appeared to be severe MS with a mean gradient
of 10.05 mmHg and a calculated mitral valve area by Gorlin equation of 1.04 cm sq. patient was seen by our office, on 08/11/2024 who was noted to be back in atrial fibrillation with worsened exertional symptoms and weight gain. Patient was started on
Eliquis at the end of that OV. Patient was referred for YUE/CV at that time was found to have definite thrombus in the MARIANELA and then also spontaneous echo contrast in the LA. Eliquis was stopped and patient was started on warfarin, patient reports
she is taking Eliquis 5 mg BID and warfarin 5 mg daily and was due for an INR today. Patient came to the ER with resting SOB and labs showed an INR of greater than 8.
Remains in aFib with INR remaining >8
Cont to hold anticoagulation and resume Coumadin once INR improved.
Given patient hemodynamically stable without acute evidence of bleeding would hold on giving vitamin K given left atrial appendage smoke/thrombus
knows not to take Eliquis anymore especially when on coumadin.
Outpt reeval YUE
Outpatient dose of amiodarone 200 mg daily has been continued for adjunct rate control.
Cont Lopressor, increased for better rate control.
Lasix 80 mg IV BID for diuresis. Transition to oral lasix likely next 24 hrs.
-down 4 lbs overnight
-Most recent dose of diuretic was Lasix 80 mg BID following her YUE and cath on 07/29/2024.
-EF 65% by YUE 08/13/24.
-Patient with known bioprosthetic mitral valve stenosis and MPG by cath at [facility] 07/29/24 was 10.05. Patient is scheduled to see the surgeon at [place], [place] on 09/15/24 to discuss TMVR and have a CT scan.
-Patient currently taking Camzyos 15 mg daily for known HOCM that is managed at [facility]
Original Note:
Today's Communication / Plan
-
Continue to hold warfarin
Continue IV diuresis with likely transition to oral lasix in next 24 hours
Replete potassium will get 40 mEq this a.m. and repeat dosing this evening
Continue Camzyos
Impression / Plan
-
PCP: Antonieta Clark MD
CDY: Yahaira Evans MD locally and Dr. Pat at [facility] ([phone])
Impression:
Admitted with SOB and supratherapeutic INR 08/23/24
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
Acute on chronic HFpEF
Spontaneous echo contrast in the left atrium and definite thrombus in the MARIANELA by YUE 08/13/2024
Supratherapeutic INR
Eliquis transitioned to warfarin for LA smoke by YUE 08/13/24
Paroxysmal atrial fibrillation
s/p PVI 04/2023
HCM, severe concentric LVH, on Camzyos dosing changes managed at [facility]
PHTN
s/p RHC at [facility] 12/2023
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
Mild , peak to peak gradient 11 mmHg by cath at [facility] 07/29/24
h/o endocarditis
Hypertension
Hyperlipidemia
COPD
RHC 12/24/2023: Performed at [facility], PCWP consistent with severe PHTN, PVR 8 Wood units and mildly depressed assumed [place] cardiac index
R/LHC 07/29/2024: Pending study, PCWP 17 mmHg, severe PHTN with PAP 42 mmHg, PVR 6.58 Wood units, CI 2.29, severe mitral stenosis with mean gradient 10.05 mmHg and calculated mitral valve area by Gorlin equation 1.04 cm sq, noncritical CAD, LM
luminal irregularities, LAD luminal irregularities, circumflex 50% mid lesion otherwise luminal irregularities, RCA luminal irregularities
YUE 06/07/22: EF 70-75%, severe cLVH, well seated bioprosthetic MV, mild MS, mild , mild AR
Echo 06/23/23: EF 70 to 75%, mild concentric LVH, mid cavitary gradient is 76/29 at rest and 89/35 with Valsalva, bioprosthetic mitral valve with mean gradient 8 mmHg and no MR, moderate peak/mean 67/37 mmHg and ZACHARY 1.3 cm sq, some transvalvular
gradient could be secondary to severe LVH, mild pulmonic regurgitation
Echo 10/08/23: LVOT peak gradient 5 mmHg at rest up to 31 with Valsalva, EF 75%, hyperdynamic LV
Echo 12/01/23: EF 60%, mid cavitary obstruction with LVOT gradient 20 mmHg at rest increased to 27 with Valsalva, normal function of bioprosthetic mitral valve, moderate TR with PAP 88 mmHg
Echo @ [facility] 05/25/2024: EF 75%, LVIS measures 1.5 cm, LVOT peak gradient at rest measures 16 mmHg, with Valsalva up to 51 mmHg, GLS 11.5%, bioprosthetic mitral valve with trace MR with peak/mean gradients 28/11 mmHg, mild with peak/mean gradients
21/11 mmHg, mild to moderate AR, mild TR, estimated PAP 87 mmHg
Echo 06/10/2024: LV small size with severe concentric LVH (interventricular septum 2.3 cm, posterior wall 2 cm), no WMA, EF 65 to 70%, mid cavitary gradient of at least 5 mmHg up to 23 with Valsalva, LVOT gradient at rest is 9 with Valsalva up to 18,
normal RV size and function, moderate TR with PAP 80 to 85 mmHg, compared to echo from 12/01/2023 at [facility] RV is now mildly dilated consistent with PHTN seen on most recent workup and aortic valve now with moderate insufficiency
YUE 07/29/24: [facility] study, normal LV size, mildly increased LV wall thickness of mild concentric LVH, EF 60%, mildly decreased RV systolic function with mild dilation, no thrombus present in the left atrial appendage, bioprosthetic mitral valve
prosthesis with moderate mitral valve leaflet calcification and trace MR, moderate mitral stenosis with mean mitral valve gradient 8 mmHg, mild , mild aortic regurgitation
YUE 08/13/24: [facility] study, EF 65%, moderately dilated RV with mild RV hypokinesis, severely dilated LA with evidence of spontaneous echo contrast and definite MARIANELA thrombus, bioprosthetic mitral valve with marked thickening and
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
Plan:
Admitted 08/23/24 with SOB evidence of acute heart failure and supratherapeutic INR (>8)
Patient remains in Afib with reasonable heart rate control. However loss of atrial kick is likely contributing to acute HF.
-Unfortunately patient was found to have left atrial clot and left atrial smoke on YUE 08/13/2024 and cardioversion was canceled. Given clot occurred on Eliquis (also cost prohibitive to patient) patient changed to warfarin and patient has been
taking Eliquis 5 mg BID plus warfarin 5 mg daily since 08/16/24. INR greater than 8 in the ER 08/23/24 and remains greater than 8 on repeat today.
-Continue to hold Warfarin, Recheck INR in AM.
-Given patient hemodynamically stable without acute evidence of bleeding would hold on giving vitamin K given left atrial appendage smoke and clot
-Eliquis stopped as of 08/23. Would not give warfarin tonight.
-Outpatient dose of amiodarone 200 mg daily has been continued for adjunct rate control.
-Outpatient dose of Lopressor increased to 75 mg BID to help with rate control.
Acute on chronic heart failure, proBNP 8220
-Weight is down 4 pounds overnight
-Ongoing diuresis with Lasix to 80 mg IV BID; consider transitioning to oral Lasix within next 24 hours. Patient was taking 40 mg twice daily as outpatient would consider sending home on 80 mg in a.m. and 40 mg in p.m.
-Creatinine stable at 0.8
-Potassium 3.4, will replete 40 meq now and another dose this evening
-EF 65% by YUE 08/13/24.
Patient with known bioprosthetic mitral valve stenosis and MPG by cath at [facility] 07/29/24 was 10.05. Patient is scheduled to see the surgeon at [place], [place] on 09/15/24 to discuss TMVR and have a CT scan.
-Patient is not sure if [facility] knows about the MARIANELA clot and if this will affect her surgery.
-Patient currently taking Camzyos 15 mg daily for known HOCM that is managed at [facility]. Last dose was 08/23. Patient does not have it with her and not on formally. Requested that she get a family member to bring it.
Plan discussed with patient, Dr. Brown
[facility] 08/23/2024:
Patient came to ER today with complaints of increased CLAYTON and resting SOB and cardiology is now consulted. Patient has a history of tissue MVR from 2014 and then more recently a diagnosis of hypertrophic cardiomyopathy and was started on Camzyos
that is being managed at [facility]. Patient was admitted to this hospital from 06/10/2024 until 06/12/2024 with acute HF and was diagnosed with IV Lasix. After that patient was seen in the office in June and had ongoing decline in exertional tolerance
that was concerning for possible worsening hypertrophic cardiomyopathy or bioprosthetic mitral valve stenosis. Patient was sent for echo and then followed up at [facility] and had YUE and cardiac cath as noted above. On YUE there was evidence of
moderate mitral stenosis and the mean gradient was 8 mmHg and only mild , there was mild concentric LVH, but no concern for worsening gradient. Patient then had R/LHC that showed PCWP 17, severe PHTN with PAP 42 mmHg and it appeared to be severe
MS with a mean gradient of 10.05 mmHg and a calculated mitral valve area by Gorlin equation of 1.04 cm sq. patient was seen by our office, on 08/11/2024 who was noted to be back in atrial fibrillation with worsened exertional symptoms and weight gain.
Patient was started on Eliquis at the end of that OV. Patient was referred for YUE/CV at that time was found to have definite thrombus in the MARIANELA and then also spontaneous echo contrast in the LA. Eliquis was stopped and patient was started on
warfarin, patient reports she is taking Eliquis 5 mg BID and warfarin 5 mg daily and was due for an INR today. Patient came to the ER with resting SOB and labs showed an INR of greater than 8.
Progress Note - Director Educational Radio
Subjective
Date of Service: August 24, 2024
Patient seen and examined. Patient sitting up in bed reporting that she feels significantly less short of breath and edema has improved overnight with IV diuresis
Objective
Labs:
08/24/24 06:46
08/24/24 06:46
Labs
Hgb 14.8 g/dL (12.0-16.0) 08/24/24 06:46
Hct 46.7 % (37.0-47.0) 08/24/24 06:46
Plt Count 112 10^3/uL (130-400) L D 08/24/24 06:46
PT 72.7 Sec (11.4-14.6) H 08/24/24 06:46
INR > 8.0 H* 08/24/24 06:46
Sodium 140 mmol/L (135-145) 08/24/24 06:46
Potassium 3.4 mmol/L (3.5-5.1) L 08/24/24 06:46
BUN 21 mg/dl (7-17) H 08/24/24 06:46
Creatinine 0.8 mg/dL (0.6-1.0) 08/24/24 06:46
Glucose 114 mg/dl (70-99) H 08/24/24 06:46
Troponins
08/23/24 08/23/24 08/23/24
08:53 18:00 21:47
Troponin I 0.030 0.017 0.023 D
Vital Signs and I&O:
Vital Signs
Temp Pulse Resp BP Pulse Ox
98 F 89 16 139/76 93
08/24/24 07:42 08/24/24 08:02 08/24/24 08:02 08/24/24 07:42 08/24/24 08:02
Vital Signs
Temp Pulse Resp BP Pulse Ox
98 F 89 16 139/76 93
08/24/24 07:42 08/24/24 08:02 08/24/24 08:02 08/24/24 07:42 08/24/24 08:02
Intake & Output
08/22/24 08/23/24 08/24/24 08/25/24
06:59 06:59 06:59 06:59
Intake Total 480 / 480
Output Total 250 / 250
Balance 230 / 230
Physical Exam
Physical Exam
GEN: No distress, awake, Ox3, sitting up on edge of bed
HEENT: supple, anicteric, mmm
LUNGS: CTA, no wheezes/rales
CV: Irregularly irregular, S1/S2, harsh radiating 2/6 murmur, no rub or gallop
ABD: soft, BS+, NT/ND
EXT: No edema, clubbing or cyanosis
NEURO: Gross non-focal
SKIN: No rash, warm, dry, pink
--- NOTE | 2024-08-24 12:08 | W.PN.HOSP.TC ---
Today's Communication/Plan
-
Continue with IV Lasix
Follow INR closely
Assessment / Plan
Assessment / Plan
Acute CHF decompensation pulm edema. Noted to have normal EF. Rule out A-fib related. Patient presented with RVR. Known to have A-fib. Also evaluate for failing MVR as a possible etiology. 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
YUE from 10 days ago.Her BNP is more than baseline. Her weight is 151 pounds and baseline weight is 149 pounds.
Continue IV Lasix. Improved weight and symptoms.
Appreciate cardiology input.
Follow weights.
Atrial fibrillation with RVR-patient received Cardizem bolus in the ED with improved heart rate. Continue with amiodarone and beta-viet. Follow on telemetry. Hold on anticoagulation supratherapeutic INR
Atrial clot-patient was getting transition from Eliquis to Coumadin. New to Coumadin since a week. Supratherapeutic INR but no evidence of external bleeding. H&H stable. Hold anticoagulants and follow INR daily. Hold on reversal of INR due to
atrial clot.
Cardiomyopathy-on Camzyos which I will continue
Full code
Anticipated Discharge: 24 - 48 hours
Subjective/Interval History
-
Date of Service: August 24, 2024
Feels improved. Denies shortness of breath. On room air.
No chest pain or palpitations.
Denies any blood in the urine. No blood in the stools noted by the patient before coming in.
Objective Data
-
Labs:
Laboratory Results
08/24/24
06:46
WBC 6.2
Hgb 14.8
Hct 46.7
Plt Count 112 L D
PT 72.7 H
INR > 8.0 H*
Sodium 140
Potassium 3.4 L
Chloride 101
Carbon Dioxide 27
BUN 21 H
Creatinine 0.8
Glucose 114 H
Calcium 9.0
Vital Signs:
Vital Signs
Temp Pulse Resp BP Pulse Ox
98 F 89 16 139/76 93
08/24/24 07:42 08/24/24 08:02 08/24/24 08:02 08/24/24 07:42 08/24/24 08:02
I&O
08/23/24 08/24/24 08/25/24
06:59 06:59 06:59
Intake Total 480 / 480
Output Total 250 / 250
Balance 230 / 230
Physical Exam
-
General: No Apparent Distress
HEENT: Moist Mucous Membranes
Respiratory: Clear to Auscultation and Non Labored Respirations; Negative Accessory Resp Muscle Use
Cardiac: S1/S2 and Irregular Rhythm; Negative Tachycardic
GI: Soft
Neuro: AO x 3
Data Reviewed
-
Labs: Labs Reviewed by me
[2024-08-24] MEDS: LOPRESSOR 25 MG PO (12:49)
[2024-08-24] MEDS: KCL 40 MEQ PO ×2 (12:49→16:00)
[2024-08-24 15:00] VITALS: BP 112/65
--- NOTE | 2024-08-24 15:32 | CM ---
Patient seen bedside, initial assessment completed. Patient presents with 2 days of shortness of breath mostly with exertion. She also started to notice increased lower extremity edema.
Patient prev at [facility] in May, confirmed information from last admission.
Patient reports she resides alone in [address] [place] [address] apartment- 8 steps to enter. Patient is independent w/ ambulating, no device required. Independent w/ ADLs. No DME identified. Denies SNF/HC hx. No current OP or home services at this time.
Address, point of contact and insurance verified
PCP: Felisa Clark
Pharmacy: [place], [place]
Plan: Anticipate home; no needs
[2024-08-24 19:31] VITALS: BP 116/71
[2024-08-24] MEDS: LOPRESSOR 75 MG PO (19:56)
[2024-08-24] MEDS: MELATONIN 5 MG PO (20:48)
[2024-08-24 23:28] VITALS: BP 103/58
[2024-08-25 03:17] VITALS: BP 143/79
[2024-08-25 05:32] VITALS: BMI 27.5
[2024-08-25 07:30] VITALS: BP 111/61
[2024-08-25] MEDS: ADVAIR HFA 115/21 MCG INHALER 2 PUFF INH ×2 (07:47→19:43)
[2024-08-25 08:14] LABS: INR 3.25; PT 33.4 Sec (11.4-14.6)
[2024-08-25] MEDS: LASIX 80 MG IV ×3 (08:42→16:36)
[2024-08-25] MEDS: LIPITOR 20 MG PO (08:45)
[2024-08-25] MEDS: VITAMIN C 500 MG PO (08:45)
[2024-08-25] MEDS: PACERONE 200 MG PO (08:45)
[2024-08-25 09:02] LABS: Blood Urea Nitrogen 29 mg/dl (7-17); Calcium 9.4 mg/dl (8.4-10.2); Carbon Dioxide 28 mmol/L (22-30); Chloride 100 mmol/L (98-107); Estimated Creatinine Clearance 47 ml/min; Glucose 119 mg/dl (70-99); Potassium 4.3 mmol/L (3.5-5.1); Sodium 140 mmol/L (135-145); eGFR > 60.00
--- NOTE | 2024-08-25 09:49 | W.PN.CARDCBS ---
Addendum entered and electronically signed by Gaston Perea DO 08/25/24 12:42:
I saw and examined the patient.
The Trim Mounter's note was reviewed and I agree with the note.
Comment:
Plan:
Transition to oral lasix next 24 hrs
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
INR improved off Eliquis and coumadin.
Outpatient dose of amiodarone 200 mg daily has been continued for adjunct rate control.
Cont Lopressor, increased for better rate control.
Patient currently taking Camzyos 15 mg daily for known HOCM that is managed at [place]
HPI:Presented to ER with complaints of increased CLAYTON and resting SOB and cardiology is now consulted. Patient has a history of tissue MVR from 2014 and then more recently a diagnosis of hypertrophic cardiomyopathy and was started on Camzyos that is
being managed at [place]. Patient was admitted to this hospital from 06/10/2024 until 06/12/2024 with acute HF and was diagnosed with IV Lasix. After that patient was seen in the office in June and had ongoing decline in exertional tolerance that
was concerning for possible worsening hypertrophic cardiomyopathy or bioprosthetic mitral valve stenosis. Patient was sent for echo and then followed up at [place] and had YUE and cardiac cath. On YUE there was evidence of moderate mitral stenosis
and the mean gradient was 8 mmHg and only mild , there was mild concentric LVH, but no concern for worsening gradient. Patient then had R/LHC that showed PCWP 17, severe PHTN with PAP 42 mmHg and it appeared to be severe MS with a mean gradient
of 10.05 mmHg and a calculated mitral valve area by Gorlin equation of 1.04 cm sq. patient was seen by our office, on 08/11/2024 who was noted to be back in atrial fibrillation with worsened exertional symptoms and weight gain. Patient was started on
Eliquis at the end of that OV. Patient was referred for YUE/CV at that time was found to have definite thrombus in the MARIANELA and then also spontaneous echo contrast in the LA. Eliquis was stopped and patient was started on warfarin, patient reports
she is taking Eliquis 5 mg BID and warfarin 5 mg daily and was due for an INR today. Patient came to the ER with resting SOB and labs showed an INR of greater than 8.
Original Note:
Today's Communication / Plan
-
Extra Lasix 80 mg IV now, ordered by me
Impression / Plan
-
PCP: Antonieta Clark MD
CDY: Yahaira Evans MD locally and Dr. Pat at [place] ([phone])
Impression:
Admitted with SOB and supratherapeutic INR 08/23/24
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
Acute on chronic HFpEF
Spontaneous echo contrast in the left atrium and definite thrombus in the MARIANELA by YUE 08/13/2024
Supratherapeutic INR
Eliquis transitioned to warfarin for LA smoke by YUE 08/13/24
Paroxysmal atrial fibrillation
s/p PVI 04/2023
HCM, severe concentric LVH, on Camzyos dosing changes managed at [place]
PHTN
s/p RHC at [place] 12/2023
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
Mild , peak to peak gradient 11 mmHg by cath at [place] 07/29/24
h/o endocarditis
Hypertension
Hyperlipidemia
COPD
RHC 12/24/2023: Performed at [place], PCWP consistent with severe PHTN, PVR 8 Wood units and mildly depressed assumed [place] cardiac index
R/LHC 07/29/2024: Pending study, PCWP 17 mmHg, severe PHTN with PAP 42 mmHg, PVR 6.58 Wood units, CI 2.29, severe mitral stenosis with mean gradient 10.05 mmHg and calculated mitral valve area by Gorlin equation 1.04 cm sq, noncritical CAD, LM
luminal irregularities, LAD luminal irregularities, circumflex 50% mid lesion otherwise luminal irregularities, RCA luminal irregularities
YUE 06/07/22: EF 70-75%, severe cLVH, well seated bioprosthetic MV, mild MS, mild , mild AR
Echo 06/23/23: EF 70 to 75%, mild concentric LVH, mid cavitary gradient is 76/29 at rest and 89/35 with Valsalva, bioprosthetic mitral valve with mean gradient 8 mmHg and no MR, moderate peak/mean 67/37 mmHg and ZACHARY 1.3 cm sq, some transvalvular
gradient could be secondary to severe LVH, mild pulmonic regurgitation
Echo 10/08/23: LVOT peak gradient 5 mmHg at rest up to 31 with Valsalva, EF 75%, hyperdynamic LV
Echo 12/01/23: EF 60%, mid cavitary obstruction with LVOT gradient 20 mmHg at rest increased to 27 with Valsalva, normal function of bioprosthetic mitral valve, moderate TR with PAP 88 mmHg
Echo @ [place] 05/25/2024: EF 75%, LVIS measures 1.5 cm, LVOT peak gradient at rest measures 16 mmHg, with Valsalva up to 51 mmHg, GLS 11.5%, bioprosthetic mitral valve with trace MR with peak/mean gradients 28/11 mmHg, mild with peak/mean gradients
21/11 mmHg, mild to moderate AR, mild TR, estimated PAP 87 mmHg
Echo 06/10/2024: LV small size with severe concentric LVH (interventricular septum 2.3 cm, posterior wall 2 cm), no WMA, EF 65 to 70%, mid cavitary gradient of at least 5 mmHg up to 23 with Valsalva, LVOT gradient at rest is 9 with Valsalva up to 18,
normal RV size and function, moderate TR with PAP 80 to 85 mmHg, compared to echo from 12/01/2023 at [place] RV is now mildly dilated consistent with PHTN seen on most recent workup and aortic valve now with moderate insufficiency
YUE 07/29/24: [place] study, normal LV size, mildly increased LV wall thickness of mild concentric LVH, EF 60%, mildly decreased RV systolic function with mild dilation, no thrombus present in the left atrial appendage, bioprosthetic mitral valve
prosthesis with moderate mitral valve leaflet calcification and trace MR, moderate mitral stenosis with mean mitral valve gradient 8 mmHg, mild , mild aortic regurgitation
YUE 08/13/24: [facility] [place] study, EF 65%, moderately dilated RV with mild RV hypokinesis, severely dilated LA with evidence of spontaneous echo contrast and definite MARIANELA thrombus, bioprosthetic mitral valve with marked thickening and
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
Plan:
-Weight increased 3 lbs overnight to 150 lbs on 08/25/24 despite Lasix 80 mg IV BID. Patient willing to stay until 08/26/24 for additional diuresis. Will give additional Lasix 80 mg IV x1 on 08/25/24 for a total of 3 doses for the day.
-Most recent dose of diuretic was Lasix 80 mg BID following her YUE and cath there on 07/29/2024. Patient may require a higher dose of Lasix.
-Otherwise, overall improved, less SOB and decreased LE edema.
-Remains in Afib on tele reviewed by me 08/25/24. Patient was sent for YUE/CV 08/13/24 and was found to have MARIANELA clot and LA smoke and CV was deferred.
-INR was greater than 8 on admission while patient was taking Eliquis and warfarin. Eliquis on hold since admission and as it has washed out the INR has decreased to 3.2 on 08/25/24. Will continue to hold warfarin until INR less than 3. Eliquis has
been stopped and should not be restarted.
-Outpatient dose of amiodarone 200 mg daily has been continued for adjunct rate control.
-Outpatient dose of Lopressor increased to 75 mg BID to help with rate control. BP stable on recheck 08/25/24 AM.
-EF 65% by YUE 08/13/24.
-Patient with known bioprosthetic mitral valve stenosis and MPG by cath at [place] 07/29/24 was 10.05. Patient is scheduled to see the surgeon at [place], [place] on 09/15/24 to discuss TMVR and have a CT scan.
-Patient is not sure if [facility] knows about the MARIANELA clot and if this will affect her surgery.
-Patient currently taking Camzyos 15 mg daily for known HOCM that is managed at [place]
HPI 08/23/2024: Patient came to ER today with complaints of increased CLAYTON and resting SOB and cardiology is now consulted. Patient has a history of tissue MVR from 2014 and then more recently a diagnosis of hypertrophic cardiomyopathy and was
started on Camzyos that is being managed at [place]. Patient was admitted to this hospital from 06/10/2024 until 06/12/2024 with acute HF and was diagnosed with IV Lasix. After that patient was seen in the office in June and had ongoing decline in
exertional tolerance that was concerning for possible worsening hypertrophic cardiomyopathy or bioprosthetic mitral valve stenosis. Patient was sent for echo and then followed up at [place] and had YUE and cardiac cath as noted above. On YUE there
was evidence of moderate mitral stenosis and the mean gradient was 8 mmHg and only mild , there was mild concentric LVH, but no concern for worsening gradient. Patient then had R/LHC that showed PCWP 17, severe PHTN with PAP 42 mmHg and it
appeared to be severe MS with a mean gradient of 10.05 mmHg and a calculated mitral valve area by Gorlin equation of 1.04 cm sq. patient was seen by our office, on 08/11/2024 who was noted to be back in atrial fibrillation with worsened exertional
symptoms and weight gain. Patient was started on Eliquis at the end of that OV. Patient was referred for YUE/CV at that time was found to have definite thrombus in the MARIANELA and then also spontaneous echo contrast in the LA. Eliquis was stopped and
patient was started on warfarin, patient reports she is taking Eliquis 5 mg BID and warfarin 5 mg daily and was due for an INR today. Patient came to the ER with resting SOB and labs showed an INR of greater than 8.
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
Subjective
Date of Service: August 25, 2024
She is willing to stay until tomorrow, she is worried that her BP is higher, but denies NOGUERA
Objective
Labs:
08/24/24 06:46
08/25/24 07:20
Labs
Hgb 14.8 g/dL (12.0-16.0) 08/24/24 06:46
Hct 46.7 % (37.0-47.0) 08/24/24 06:46
Plt Count 112 10^3/uL (130-400) L D 08/24/24 06:46
PT 33.4 Sec (11.4-14.6) H 08/25/24 07:20
INR 3.25 D 08/25/24 07:20
Sodium 140 mmol/L (135-145) 08/25/24 07:20
Potassium 4.3 mmol/L (3.5-5.1) D 08/25/24 07:20
BUN 29 mg/dl (7-17) H 08/25/24 07:20
Creatinine 0.9 mg/dL (0.6-1.0) 08/25/24 07:20
Glucose 119 mg/dl (70-99) H 08/25/24 07:20
Troponins
08/23/24 08/23/24 08/23/24
08:53 18:00 21:47
Troponin I 0.030 0.017 0.023 D
Vital Signs and I&O:
Vital Signs
Temp Pulse Resp BP Pulse Ox
98.2 F 88 16 111/61 93
08/25/24 07:30 08/25/24 07:48 08/25/24 07:48 08/25/24 07:30 08/25/24 07:30
Vital Signs
Temp Pulse Resp BP Pulse Ox
98.2 F 88 16 111/61 93
08/25/24 07:30 08/25/24 07:48 08/25/24 07:48 08/25/24 07:30 08/25/24 07:30
Intake & Output
08/23/24 08/24/24 08/25/24 08/26/24
06:59 06:59 06:59 06:59
Intake Total 480 / 480
Output Total 250 / 250
Balance 230 / 230
Physical Exam
Physical Exam
GEN: NAD. AAO x3
HEENT: EOMI
LUNGS: RA. No audible wheeze
CV: Afib on tele.
ABD:ND
EXT: No edema B/L
NEURO: Gross non-focal
SKIN: No rash
[2024-08-25 10:03] VITALS: BP 162/85
[2024-08-25] MEDS: LOPRESSOR 75 MG PO ×2 (10:10→20:11)
[2024-08-25 10:27] VITALS: BP 138/67; BMI 27.5
[2024-08-25] MEDS: TYLENOL 650 MG PO ×2 (12:41→20:32)
--- NOTE | 2024-08-25 14:29 | W.PN.HOSP.TC ---
Today's Communication/Plan
-
CW IV lasix
INR in am
Assessment / Plan
Assessment / Plan
Acute CHF decompensation pulm edema. Noted to have normal EF. Rule out A-fib related. Patient presented with RVR. Known to have A-fib. Also evaluate for failing MVR as a possible etiology. 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
YUE from 10 days ago.Her BNP is more than baseline. Her weight is 150 pounds without improvement ; baseline weight is 149 pounds.
Continue IV Lasix.
Appreciate cardiology input.
Follow weights.
Atrial fibrillation with RVR-patient received Cardizem bolus in the ED with improved heart rate. Continue with amiodarone and beta-viet. Follow on telemetry. Hold on anticoagulation supratherapeutic INR
Atrial clot-patient was getting transition from Eliquis to Coumadin. New to Coumadin since a week. Supratherapeutic INR but no evidence of external bleeding. H&H stable. Hold anticoagulants and follow INR daily. Hold on reversal of INR due to
atrial clot.Improved INR. Coumadin once INR<3.0
Cardiomyopathy-on Camzyos which I will continue
Full code
Anticipated Discharge: Within 24 hours
Subjective/Interval History
-
Date of Service: August 25, 2024
Denies shortness of breath at rest. No chest pain. No dizziness.
Objective Data
-
Labs:
Laboratory Results
08/25/24
07:20
PT 33.4 H
INR 3.25 D
Sodium 140
Potassium 4.3 D
Chloride 100
Carbon Dioxide 28
BUN 29 H
Creatinine 0.9
Glucose 119 H
Calcium 9.4
Vital Signs:
Vital Signs
Temp Pulse Resp BP Pulse Ox
97.7 F 76 20 138/67 96
08/25/24 10:03 08/25/24 10:27 08/25/24 10:27 08/25/24 10:27 08/25/24 10:27
I&O
08/24/24 08/25/24 08/26/24
06:59 06:59 06:59
Intake Total 480 / 480
Output Total 250 / 250
Balance 230 / 230
Review of Systems
-
Constitutional: Denies Fever
EENT: Denies Sore Throat
Respiratory: Denies Cough
Abdomen/GI: Denies Abdominal Pain, Nausea or Vomiting
Physical Exam
-
General: No Apparent Distress
Respiratory: Clear to Auscultation and Non Labored Respirations; Negative Accessory Resp Muscle Use
Cardiac: S1/S2 and Irregular Rhythm; Negative Tachycardic
GI: Soft
Neuro: AO x 3
Data Reviewed
-
Labs: Labs Reviewed by me
[2024-08-25 15:36] VITALS: BP 135/72
[2024-08-25 19:36] VITALS: BP 128/67
[2024-08-25] MEDS: MELATONIN 5 MG PO (20:32)
[2024-08-26 03:14] VITALS: BP 108/58
[2024-08-26 05:59] VITALS: BMI 27.2
[2024-08-26 07:30] VITALS: BP 127/77
[2024-08-26] MEDS: ADVAIR HFA 115/21 MCG INHALER 2 PUFF INH (07:41)
[2024-08-26 08:09] LABS: INR 2.02; PT 23.4 Sec (11.4-14.6)
[2024-08-26 08:41] LABS: Blood Urea Nitrogen 37 mg/dl (7-17); Calcium 9.5 mg/dl (8.4-10.2); Carbon Dioxide 35 mmol/L (22-30); Chloride 97 mmol/L (98-107); Estimated Creatinine Clearance 42 ml/min; Glucose 116 mg/dl (70-99); Potassium 4.1 mmol/L (3.5-5.1); Sodium 142 mmol/L (135-145); eGFR 58.02
[2024-08-26] MEDS: LIPITOR 20 MG PO (08:44)
[2024-08-26] MEDS: PACERONE 200 MG PO (08:45)
[2024-08-26] MEDS: LOPRESSOR 75 MG PO (08:45)
[2024-08-26] MEDS: VITAMIN C 500 MG PO (08:45)
[2024-08-26] MEDS: LASIX 80 MG IV (08:46)
[2024-08-26 11:50] VITALS: BP 100/54
--- NOTE | 2024-08-26 13:54 | W.PN.HOSP.TC ---
Today's Communication/Plan
-
DC home if ok from cardiology standpoint
Start coumadin
Assessment / Plan
Assessment / Plan
Acute CHF decompensation pulm edema. Noted to have normal EF. Rule out A-fib related. Patient presented with RVR. Known to have A-fib. Also evaluate for failing MVR as a possible etiology. 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
YUE from 10 days ago.Her BNP is more than baseline. Her weight is 148 pounds ; baseline weight is 149 pounds.
Continue IV Lasix per cards
Appreciate cardiology input.
Follow weights.
Atrial fibrillation with RVR-patient received Cardizem bolus in the ED with improved heart rate. Continue with amiodarone and beta-viet. Follow on telemetry. Hold on anticoagulation supratherapeutic INR
Atrial clot-patient was getting transition from Eliquis to Coumadin. New to Coumadin since a week. Supratherapeutic INR but no evidence of external bleeding. H&H stable. Hold anticoagulants and follow INR daily. Hold on reversal of INR due to
atrial clot.Improved INR. Coumadin once INR<3.0. INR 2.02 . will start on coumadin and pt to follow with [facility] coumadin [facility]
Cardiomyopathy-on Camzyos which I will continue
Full code
DC home if ok from cards standpoint
Anticipated Discharge: Today
Subjective/Interval History
-
Date of Service: August 26, 2024
Manage shortness of breath, chest pain or palpitations.
No nausea vomiting.
No fever or chills.
Objective Data
-
Labs:
Laboratory Results
08/26/24
06:36
PT 23.4 H
INR 2.02
Sodium 142
Potassium 4.1
Chloride 97 L
Carbon Dioxide 35 H
BUN 37 H
Creatinine 1.0
Glucose 116 H
Calcium 9.5
Vital Signs:
Vital Signs
Temp Pulse Resp BP Pulse Ox
97.6 F 70 20 100/54 93
08/26/24 11:50 08/26/24 11:50 08/26/24 11:50 08/26/24 11:50 08/26/24 11:50
I&O
08/25/24 08/26/24 08/27/24
06:59 06:59 06:59
Intake Total 840 / 840
Output Total 1200 / 1200
Balance -360 / -360
Review of Systems
-
Constitutional: Denies Fever
EENT: Denies Sore Throat
Respiratory: Denies Cough
Abdomen/GI: Denies Abdominal Pain
Neuro: Denies Dizzy
Physical Exam
-
General: No Apparent Distress
HEENT: Moist Mucous Membranes
Respiratory: Clear to Auscultation
Cardiac: S1/S2 and Irregular Rhythm; Negative Tachycardic
GI: Soft
Neuro: AO x 3
Data Reviewed
-
Labs: Labs Reviewed by me
--- NOTE | 2024-08-26 14:48 | W.PN.CARDCBS ---
Today's Communication / Plan
-
Plan to transition to p.o. Lasix 80 mg twice daily and continue on discharge
Would resume warfarin at 2 mg daily
Stable for discharge on increased dose of metoprolol
We will arrange for close outpatient follow-up
Impression / Plan
-
PCP: Antonieta Clark MD
CDY: Yahaira Evans MD locally and Dr. Pat at [place] ([phone])
Impression:
Admitted with SOB and supratherapeutic INR 08/23/24
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
Acute on chronic HFpEF
Spontaneous echo contrast in the left atrium and definite thrombus in the MARIANELA by YUE 08/13/2024
Supratherapeutic INR
Eliquis transitioned to warfarin for LA smoke by YUE 08/13/24
Paroxysmal atrial fibrillation
s/p PVI 04/2023
HCM, severe concentric LVH, on Camzyos dosing changes managed at [place]
PHTN
s/p RHC at [facility] 12/2023
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
Mild , peak to peak gradient 11 mmHg by cath at [facility] 07/29/24
h/o endocarditis
Hypertension
Hyperlipidemia
COPD
RHC 12/24/2023: Performed at [facility], PCWP consistent with severe PHTN, PVR 8 Wood units and mildly depressed assumed [place] cardiac index
R/LHC 07/29/2024: Pending study, PCWP 17 mmHg, severe PHTN with PAP 42 mmHg, PVR 6.58 Wood units, CI 2.29, severe mitral stenosis with mean gradient 10.05 mmHg and calculated mitral valve area by Gorlin equation 1.04 cm sq, noncritical CAD, LM
luminal irregularities, LAD luminal irregularities, circumflex 50% mid lesion otherwise luminal irregularities, RCA luminal irregularities
YUE 06/07/22: EF 70-75%, severe cLVH, well seated bioprosthetic MV, mild MS, mild , mild AR
Echo 06/23/23: EF 70 to 75%, mild concentric LVH, mid cavitary gradient is 76/29 at rest and 89/35 with Valsalva, bioprosthetic mitral valve with mean gradient 8 mmHg and no MR, moderate peak/mean 67/37 mmHg and ZACHARY 1.3 cm sq, some transvalvular
gradient could be secondary to severe LVH, mild pulmonic regurgitation
Echo 10/08/23: LVOT peak gradient 5 mmHg at rest up to 31 with Valsalva, EF 75%, hyperdynamic LV
Echo 12/01/23: EF 60%, mid cavitary obstruction with LVOT gradient 20 mmHg at rest increased to 27 with Valsalva, normal function of bioprosthetic mitral valve, moderate TR with PAP 88 mmHg
Echo @ [facility] 05/25/2024: EF 75%, LVIS measures 1.5 cm, LVOT peak gradient at rest measures 16 mmHg, with Valsalva up to 51 mmHg, GLS 11.5%, bioprosthetic mitral valve with trace MR with peak/mean gradients 28/11 mmHg, mild with peak/mean gradients
21/11 mmHg, mild to moderate AR, mild TR, estimated PAP 87 mmHg
Echo 06/10/2024: LV small size with severe concentric LVH (interventricular septum 2.3 cm, posterior wall 2 cm), no WMA, EF 65 to 70%, mid cavitary gradient of at least 5 mmHg up to 23 with Valsalva, LVOT gradient at rest is 9 with Valsalva up to 18,
normal RV size and function, moderate TR with PAP 80 to 85 mmHg, compared to echo from 12/01/2023 at [facility] RV is now mildly dilated consistent with PHTN seen on most recent workup and aortic valve now with moderate insufficiency
YUE 07/29/24: [facility] study, normal LV size, mildly increased LV wall thickness of mild concentric LVH, EF 60%, mildly decreased RV systolic function with mild dilation, no thrombus present in the left atrial appendage, bioprosthetic mitral valve
prosthesis with moderate mitral valve leaflet calcification and trace MR, moderate mitral stenosis with mean mitral valve gradient 8 mmHg, mild , mild aortic regurgitation
YUE 08/13/24: [facility] [place] study, EF 65%, moderately dilated RV with mild RV hypokinesis, severely dilated LA with evidence of spontaneous echo contrast and definite MARIANELA thrombus, bioprosthetic mitral valve with marked thickening and
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
Plan:
-Appears euvolemic on exam and feels better today
-Weight down to 148lbs today with additional IV lasix yesterday
-BUN/Cr uptrending
-Would transition to PO lasix 80mg BID and discharge on this dose
-If weight increases as an outpatient may need to consider increasing Lasix dose or adding metolazone as needed
-Remains in Afib on tele Patient was sent for YUE/CV 08/13/24 and was found to have MARIANELA clot and LA smoke and CV was deferred.
-INR was greater than 8 on admission while patient was taking Eliquis and warfarin. Eliquis on hold since admission and as it has washed out the INR has decreased to 3.2 on 08/25/24. Eliquis has been stopped and should not be restarted.
-Start warfarin back at 2mg daily and will be titrated by our coumadin clinic
-Continue metoprolol and amio for rate control
-Outpatient dose of Lopressor increased to 75 mg BID to help with rate control
-Patient with known bioprosthetic mitral valve stenosis and MPG by cath at [facility] 07/29/24 was 10.05. Patient is scheduled to see the surgeon at [place], [place] on 09/15/24 to discuss TMVR and have a CT scan.
-Currently taking Camzyos 15 mg daily for known HOCM that is managed at [facility]
Stable for discharge from my perspective
We will arrange for close local cardiology follow-up
HPI 08/23/2024: Patient came to ER today with complaints of increased CLAYTON and resting SOB and cardiology is now consulted. Patient has a history of tissue MVR from 2014 and then more recently a diagnosis of hypertrophic cardiomyopathy and was
started on Camzyos that is being managed at [facility]. Patient was admitted to this hospital from 06/10/2024 until 06/12/2024 with acute HF and was diagnosed with IV Lasix. After that patient was seen in the office in June and had ongoing decline in
exertional tolerance that was concerning for possible worsening hypertrophic cardiomyopathy or bioprosthetic mitral valve stenosis. Patient was sent for echo and then followed up at [facility] and had YUE and cardiac cath as noted above. On YUE there
was evidence of moderate mitral stenosis and the mean gradient was 8 mmHg and only mild , there was mild concentric LVH, but no concern for worsening gradient. Patient then had R/LHC that showed PCWP 17, severe PHTN with PAP 42 mmHg and it
appeared to be severe MS with a mean gradient of 10.05 mmHg and a calculated mitral valve area by Gorlin equation of 1.04 cm sq. patient was seen by our office, on 08/11/2024 who was noted to be back in atrial fibrillation with worsened exertional
symptoms and weight gain. Patient was started on Eliquis at the end of that OV. Patient was referred for YUE/CV at that time was found to have definite thrombus in the MARIANELA and then also spontaneous echo contrast in the LA. Eliquis was stopped and
patient was started on warfarin, patient reports she is taking Eliquis 5 mg BID and warfarin 5 mg daily and was due for an INR today. Patient came to the ER with resting SOB and labs showed an INR of greater than 8.
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
Subjective
Date of Service: August 26, 2024
No acute overnight events. Patient tells me she feels better today with additional diuresis yesterday.
Objective
Labs:
08/24/24 06:46
08/26/24 06:36
Labs
Hgb 14.8 g/dL (12.0-16.0) 08/24/24 06:46
Hct 46.7 % (37.0-47.0) 08/24/24 06:46
Plt Count 112 10^3/uL (130-400) L D 08/24/24 06:46
PT 23.4 Sec (11.4-14.6) H 08/26/24 06:36
INR 2.02 08/26/24 06:36
Sodium 142 mmol/L (135-145) 08/26/24 06:36
Potassium 4.1 mmol/L (3.5-5.1) 08/26/24 06:36
BUN 37 mg/dl (7-17) H 08/26/24 06:36
Creatinine 1.0 mg/dL (0.6-1.0) 08/26/24 06:36
Glucose 116 mg/dl (70-99) H 08/26/24 06:36
Troponins
08/23/24 08/23/24
18:00 21:47
Troponin I 0.017 0.023 D
Vital Signs and I&O:
Vital Signs
Temp Pulse Resp BP Pulse Ox
97.6 F 70 20 100/54 93
08/26/24 11:50 08/26/24 11:50 08/26/24 11:50 08/26/24 11:50 08/26/24 11:50
Vital Signs
Temp Pulse Resp BP Pulse Ox
97.6 F 70 20 100/54 93
08/26/24 11:50 08/26/24 11:50 08/26/24 11:50 08/26/24 11:50 08/26/24 11:50
Intake & Output
08/24/24 08/25/24 08/26/24 08/27/24
06:59 06:59 06:59 06:59
Intake Total 480 / 480 840 / 840
Output Total 250 / 250 1200 / 1200
Balance 230 / 230 -360 / -360
Physical Exam
Physical Exam
Gen: NAD, AAOx3
HEENT: NC/AT, sclera anicteric
Neck: No JVD
CV: Irregularly irregular
Lungs: No increased WOB on RA
Abd: S/ND
Ext: No LE edema
Skin: Warm, dry
Neuro: Non-focal
[2024-08-26 15:00] VITALS: BP 138/78
--- NOTE | 2024-08-26 15:24 | W.DCSUMMARY ---
Discharge Summary
Discharge Data
Date of Admission: 08/23/24
Date of Discharge: 08/26/24
-
Pending Results: No
Hospital Course
Primary diagnosis:
Acute CHF decompensation with pulmonary edema-preserved EF
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
Atrial clot on recent YUE
Secondary diagnosis:
Paroxysmal atrial fibrillation
Hypertrophic cardiomyopathy on Camzyos
Essential hypertension
Hyperlipidemia
Hospital course:
Patient presented with increasing shortness of breath and noted to be in RVR. Chest x-ray showed pulmonary edema. She was recently diagnosed with failing MVR. There has prosthetic stenosis. She was referred to [facility] for
further evaluation. She had a YUE 10 days ago. There is also atrial clot found then. She was transition from Eliquis to Coumadin when she was taking 5 mg daily and admitting INR was more than 8 without any evidence of external bleeding.
She was admitted to noazurth-njzj-mqfgaeo dose was increased from 50 to 75 mg daily and her Lasix dose was increased from 40 to 80 mg twice daily. She was given instructions about resumption of Coumadin. INR was 2.02 today. She will follow with
Coumadin clinic with cardiology office.
Consultants on board:
Cardiology-Gaston Phan
Discharge Plan
-
Patient Disposition: Home (Routine Discharge)
Discharge Diagnosis/Procedures: Acute CHF ,afib, MVR with prosthetic stenosis, CM, Atrial clot
Diet: 2 Gram Sodium and Restrict fluids to 64 oz
Activity: As tolerated
Driving Restrictions: As prior to admission
Bathing Restrictions: None
Blood Work: INR as below;BMP in one week -arrange through your PCP
Specialty Instructions: Weigh Daily- Call MD for wt gain/loss 3 lbs overnight/5 lbs in 1 week
Instructions: *DCA Heart Failure Instructions
Referrals:
Yahaira Evans MD [Active] - 09/02/24 12:40 pm (You are scheduled to see Dr. Yahaira Evans's physician operations administrative assistant, Lucita, at the [place] office on 09/02/24 at 12:40 PM. Please call [phone] if you need to reschedule.)
UNKNOWN - PT DOES,NOT KNOW [Family Provider] - in less than 1 week
Additional Discharge Medication Instructions: -STOP taking Eliquis
-Take warfarin (Coumadin) 2 mg daily. Check INR on 08/30/24. The Coumadin Clinic at the cardiology office will call you with results and instructions.
Prescriptions:
New
furosemide 80 mg Tablet
80 mg PO BID@0800,1600 Qty: 60 0RF
warfarin [Jantoven] 2 mg Tablet
2 mg PO QPM Qty: 30 0RF
metoprolol tartrate 25 mg Tablet
75 mg PO BID Qty: 180 0RF
Continued
albuterol sulfate [Ventolin HFA] 90 MCG/PUFF HFA aerosol inhaler
2 puff inhalation R TIDPRN PRN (Reason: SOB)
amiodarone [Pacerone] 200 MG tablet
200 mg PO DAILY
Camzyos 5 mg Capsule
15 mg PO DAILY
Rx Instructions:
FREE FROM A REMS PROGRAM
atorvastatin [Lipitor] 20 mg Tablet
20 mg PO DAILY
fluticasone propion-salmeterol 113-14 mcg/actuation aerosol powdr breath activated
2 inh INHALATION R BID
acetaminophen [Tylenol] 325 mg Tablet
650 mg PO Q4HPRN PRN (Reason: MILD PAIN)
ascorbic acid (vitamin C) [Vitamin C] 500 mg Tablet
500 mg PO DAILY
Discontinued
Eliquis 5 MG tablet
5 mg PO BID
metoprolol tartrate 50 mg tablet
50 mg PO BID
furosemide 40 MG tablet
40 mg PO DAILY
warfarin 5 mg Tablet
5 mg PO QPM
Discharge Orders:
Discharge Patient (As Directed); Ordered 08/26/24
Ordered By: Nba Brown
Discharge Date and Time
Print Language: GREENLANDIC
--- NOTE | 2024-08-26 15:28 | CM ---
Patient will d/c today, d/c order placed.
Met w/ patient bedside, agreeable to d/c. Patient shared she drove herself to hospital and will drive home
IMM verbally reviewed, patient given copy, copy placed in chart
No CM needs identified at this time
Plan: Home; no needs
[2024-08-26] MEDS: LASIX 80 MG PO (15:52)
[2024-08-26 15:55] VITALS: BP 175/80
--- NOTE | 2024-08-27 10:14 | W.HF.CON ---
Heart Failure
- LV Function
Left ventricular function study result: LV Ejection fraction >/= 50%
Ejection Fraction Percentage: 65
- ARNI
Patient already on ARNI: No
Heart Failure ARNI Not Indicated: LV Ejection Fraction >/= 40%
- ACEI/ARB
Patient already on ACEI/ARB: No
Heart Failure ACEI/ARB Not Indicated: LV Ejection Fraction > 40%
- Beta Markus
Patient already on Evidence Based Beta Markus: No
Heart Failure Evidence Based Beta Markus Not Indicated: LV Ejection Fraction > 40%
- Mineralocorticord Receptor Antagonist
Patient already on MRA: No
Heart Failure MRA Not Indicated: LV Ejection Fraction > 40%
- Afib Anticoagulation
Patient already on Anticoagulation for Afib: Yes
- NYHA CHF Classification
NYHA CHF Classification Level: Class III - Symptoms w/ min exertion, interferes w/ nml daily activity
- ACC/AHA Stage
ACC/AHA Stage: Stage C: Symptomatic Heart Failure
== END 2024-08-26 16:30 | disposition home or self-care (01) | DRG 291 ==
LOC: 4 WEST ACU 12:01
PROVIDERS: ADMITTING PHYSICIAN Internal Medicine; EMERGENCY PHYSICIAN Student in an Organized Health Care Education/Training Program; OTHER PHYSICIAN Nuclear Medicine Nuclear Cardiology
DX: I11.0 Hypertensive heart disease with heart failure (principal); I50.33 Acute on chronic diastolic (congestive) heart failure; T82.857A Stenosis of other cardiac prosthetic devices, implants and grafts, initial encounter; I42.1 Obstructive hypertrophic cardiomyopathy; I51.3 Intracardiac thrombosis, not elsewhere classified; I48.0 Paroxysmal atrial fibrillation; E78.00 Pure hypercholesterolemia, unspecified; J44.9 Chronic obstructive pulmonary disease, unspecified; K21.9 Gastro-esophageal reflux disease without esophagitis; G89.29 Other chronic pain; M25.562 Pain in left knee; Y83.1 Surgical operation with implant of artificial internal device as the cause of abnormal reaction of the patient, or of later complication, without mention of misadventure at the time of the procedure; R79.1 Abnormal coagulation profile; T45.515A Adverse effect of anticoagulants, initial encounter; I27.20 Pulmonary hypertension, unspecified; I25.10 Atherosclerotic heart disease of native coronary artery without angina pectoris; Z95.3 Presence of xenogenic heart valve; Z86.79 Personal history of other diseases of the circulatory system; Z87.891 Personal history of nicotine dependence; Z79.01 Long term (current) use of anticoagulants
CPT/HCPCS: 71046; 80048; 80053; 83880; 84484; 85025; 85027; 85610; 93005; 93306; 94640; 96374; 96375; 99291

== ENCOUNTER 2024-10-03 13:51 | Inpatient (IN) | payer MEDICARE, SELFPAY ==
[2024-10-03] VITALS (16 sets, daily range): BP systolic 77–171; BP diastolic 49–97; BMI 27.5; BMI 27.0
--- NOTE | 2024-10-03 08:45 | ED.GENMED ---
History of Present Illness
General
Chief Complaint: Breathing Problem
Source: patient
Exam Limitations: none
Time Seen by Provider: 10/03/24 08:28
Nursing documentation reviewed up to this point in time: agreed with
History of Present Illness
History of Present Illness:
pt is a 78 y/o F with h/o hypertrophic cardiomyopathy (severe concentric, on Camzyos until 2 weeks ago when her slotter operator at [facility] d/c'd it and increased the lasix to 160 mg bid) PAF on coumadin, chronic HFpEF, biprosthetic valve replacement
(2014), COPD, HTN, CHF on lasix 160 mg bid
due for replcement o fmitral valve next week but surgery needed to be pushed back ([facility])
acute worsening of dyspnea x 2 days
says she cannot take deeep breath
no chest pain, fever, cough
her legs are a little more swollen L>R than usual and she is up 1.5 pounds
pt did not notice her color change to her L leg; iti s not painful or numb
she has no known PAD/PVD.
Past History
Past History
ED Past Medical History: Arrthythmia (Atrial fibrillation), CHF, COPD, GERD, HTN, Valvular disease (Endocarditis) and Other
ED Past Surgical History: Appendectomy, Cardiac and Other
Social History
Tobacco: Non-smoker
Alcohol: None
Drug: None
Review of Systems
Review of Systems
Allergies reviewed?: Yes
All Other Systems: Not applicable
Phy Exam
Physical Exam
Physical Exam:
GENERAL: Alert , mild tachypnea
EYE: pupils equal and reactive
NECK: Supple
ENT: o/p clr, mmm.
CARDIAC: Irregularly irregular, trace edema, left leg slightly greater than the right in the ankle
LUNGS: Diminished, mild tachypnea, no wheezing, no significant crackles
ABDOMEN: Soft, without focal tenderness, no r/g, no cvat, normal bowel sounds
NEUROLOGICAL: Alert and oriented, no focal neuro deficits
SKIN: Warm and dry, skin intact.
MUSCULOSKELETAL: Patient has mild edema in both lower extremities, slightly worse in the left ankle, I did note that the patient has skin changes with slightly hyperpigmented lower extremity on the left with some purpleish appearance to the ankle
down through the toes, delayed capillary refill, and slight temperature difference, slightly cooler than the right leg with a palpable pulse, no pain or paresthesias, full painless range of motion
The right lower extremity has toes that also appear slightly purpleish again she has a normal pulse
PSYCH: Normal and appropriate interaction.
Scores
Heart Failure Risk
Heart Failure Risk Score: Yes
History of Stroke or TIA: No
History of intubation for respiratory distress: No
Heart rate on ED arrival >/= 110: No
SaO2 <90% on arrival on room air: Yes
HR >/=110 during 3min walk test (or too ill to perform test): Yes
ECG has acute ischemic changes: No
Urea >/=12mmol/L (BUN 33.6mg/dL): No
Serum CO2>/=35mmol/L: No
Troponin I or T elevated to NC Level (0.4mg/dL): No
NT-proBNP >/=5,000ng/L (5,000pg/ml): Yes
HF Risk Score: 4
Admission Status: HIGH RISK 26.1% Consider SNF treatment or admission to hospital
Course
Orders/Labs/Results
Orders:
Orders
10/03/24 08:09
EKG [Electrocardiogram (*1)] Urgent
Reason for Study: Shortness of Breath
10/03/24 08:10
EKG- Treatment ONCE
10/03/24 08:41
Cardiac Monitoring- Treatment ONCE
CR Chest - 2 Views Urgent
Comment:
Reason For Exam: h/o chf
10/03/24 08:50
Complete Blood Count/With Diff Urgent
Comprehensive Metabolic Panel Urgent
NT-proBNP Urgent
PTT Urgent
Prothrombin Time Urgent
10/03/24 09:30
Potassium Chloride [KCl] 20 meq PO NOW STA
10/03/24 09:31
Furosemide [Lasix] 20 mg IV NOW STA
10/03/24 09:32
Potassium Chloride [KCl] 40 meq PO NOW STA
10/03/24 10:32
Venous Doppler Lwr Ext Left [US Periph Venous LOWER Ext LT] Urgent
Comment:
Reason For Exam: worse swelling L leg; subtherapeutic INR
Abnormal Lab Results
10/03/24
08:50
Hct 51.3 H %
(37.0-47.0)
MCHC 30.8 L g/dL
(33.0-37.0)
RDW 16.4 H %
(11.5-14.5)
Absolute Lymphs (auto) 0.4 L 10^3/uL
(1.2-3.4)
Neutrophils % 81.5 H %
(42.2-75.2)
Lymphocytes % 7.2 L %
(20.5-51.1)
Monocytes % 9.5 H %
(1.7-9.3)
PT 21.3 H Sec
(11.4-14.6)
APTT 35.6 H Sec
(23.4-35.0)
Sodium 146 H mmol/L
(135-145)
Potassium 3.4 L mmol/L
(3.5-5.1)
Carbon Dioxide 34 H mmol/L
(22-30)
BUN 30 H mg/dl
(7-17)
Glucose 106 H mg/dl
(70-99)
Total Bilirubin 1.6 H mg/dl
(0.2-1.3)
10/03/24 08:50
10/03/24 08:50
Vital Signs
Initial and Last Documented VS:
Initial Vital Signs
Temp Pulse Resp BP Pulse Ox
36.8 C 88 22 139/67 89
10/03/24 08:16 10/03/24 08:16 10/03/24 08:16 10/03/24 08:16 10/03/24 08:16
Last Documented Vital Signs
Temp Pulse Resp BP Pulse Ox
36.4 C 80 22 137/70 94
10/03/24 08:43 10/03/24 10:33 10/03/24 10:33 10/03/24 10:33 10/03/24 10:33
MDM/Problems Addressed
Differential Diagnosis Includes:
chf, pulm edema, PE pna, copd
MDM/Problems Addressed:
james loza 78 y/o F with h/o biprosthetic mitral valve with stenosis due for MVR in a few weeks, rob
HFpEF
AF (chronic the past 6 weeks)
LA thrombus on warfarin
severe hypertrophic cardiomyopathy; was on camzyos until 2 weeks ago when she was d/c'd due to side effect; now on lasix 160 mg bid
worsening SOB since last night
pulse ox 89% RA
2L stable
diminished
mild edema in legs
(LLE normal pulse, cool, purplish, which she thinks is chronic, no pain)
new effusions on cxr
ekg [place] [id number]
cards aware
INR is subtherpaeutic
considered CT PE in this patient
but with her BNP elevation and her new effusions, sspect her hypoxia is likely CHF and COPD and not PE
will need inc in coumadin
d/w ed attending
k 3.4, oral potassium ordered
took her 160 mg lasix today
will do 20 mg IV more for now, bp 110s
I did end up speaking with the patient again after she was admitted regarding her left leg, she does think that the left leg is more significantly swollen than the right although this is minimal at best. I am more concerned about the color and the
temperature difference. I did speak with Dr. Calero on-call for vascular surgery who said without pain and paresthesias this would be unlikely to be an acute arterial occlusion, he would recommend a DVT study
*Critical Care Note
Total Time (30-74mins, 75-104mins- exclusive of procedures): Not Applicable
ED Attending Note
-
Portions of this chart may have been created with voice recognition software.� Occasional wrong word or��sound alike� substitutions may have occurred due to the inherent limitations of voice recognition software.
Discharge Plan
Departure
Patient Disposition: Admit
Date of Disposition: 10/03/24
Time of Disposition: 09:32
Admit to: Telemetry
Presentation/result/management discussed w/ accepting MD/DO: Hospitalist
Condition: Fair
Covid-19: Not Applicable
Discharge Problem:
CHF (congestive heart failure)
Prescriptions:
No Action
albuterol sulfate [Ventolin HFA] 90 MCG/PUFF HFA aerosol inhaler
2 puff inhalation R TIDPRN PRN (Reason: SOB)
amiodarone [Pacerone] 200 MG tablet
200 mg PO DAILY
Camzyos 5 mg Capsule
15 mg PO DAILY
Rx Instructions:
FREE FROM A REMS PROGRAM
atorvastatin [Lipitor] 20 mg Tablet
20 mg PO DAILY
fluticasone propion-salmeterol 113-14 mcg/actuation aerosol powdr breath activated
2 inh INHALATION R BID
acetaminophen [Tylenol] 325 mg Tablet
650 mg PO Q4HPRN PRN (Reason: MILD PAIN)
ascorbic acid (vitamin C) [Vitamin C] 500 mg Tablet
500 mg PO DAILY
furosemide 80 mg Tablet
80 mg PO BID@0800,1600 Qty: 60 0RF
warfarin [Jantoven] 2 mg Tablet
2 mg PO QPM Qty: 30 0RF
metoprolol tartrate 25 mg Tablet
75 mg PO BID Qty: 180 0RF
Referrals:
UNKNOWN - PT DOES,NOT KNOW [Family Provider] -
Interventions
Interventions:
*Risk Screen - Suicide Last Done: 10/03/24 08:16
*General Assessment Last Done: 10/03/24 08:43
*Neglect/Abuse Screening Last Done: 10/03/24 08:16
*ED- Fall Risk Assessment Last Done: 10/03/24 08:43
*ED COVID-19 Vaccine History Last Done: 10/03/24 08:43
ED- Cardiac Assessment Last Done: 10/03/24 08:43
ED- Pulmonary Assessment Last Done: 10/03/24 08:43
Discharge Date and Time
Print Language: KAZAKH
[2024-10-03 09:00] LABS: % Basophils 0.5 % (0-2); % Eosinophils 0.8 % (0-6); % Immature Granulocytes 0.5 % (0-0.5); % Lymphocytes 7.2 % (20.5-51.1); % Monocytes 9.5 % (1.7-9.3); % Neutrophils 81.5 % (42.2-75.2); Absolute Eosinophils 0.1 10^3/uL (0-0.7); Absolute Lymphocytes 0.4 10^3/uL (1.2-3.4); Absolute Monocytes 0.6 10^3/uL (0.1-0.6); Hematocrit 51.3 % (37.0-47.0); Hemoglobin 15.8 g/dL (12.0-16.0); Mean Corp Hgb Conc. 30.8 g/dL (33.0-37.0); Mean Corpuscular Hgb 29.6 pg (27.0-31.0); Mean Corpuscular Volume 96.2 fL (81.0-99.0); Mean Platelet Volume 10.1 fL (7.4-10.4); Nucleated Red Blood Cells % 0 %; Platelet Count 139 10^3/uL (130-400); Red Blood Cell Count 5.33 10^6/uL (4.20-5.40); Red Cell Dist. Width 16.4 % (11.5-14.5); White Blood Cell Count 6.1 10^3/uL (4.8-10.8)
[2024-10-03 09:08] LABS: APTT 35.6 Sec (23.4-35.0); INR 1.83; PT 21.3 Sec (11.4-14.6)
[2024-10-03 09:10] LABS: ALT (SGPT) 29 U/L (0-35); AST (SGOT) 36 U/L (14-36); Albumin 4.3 g/dl (3.5-5.0); Alkaline Phosphatase 100 U/L (38-126); Blood Urea Nitrogen 30 mg/dl (7-17); Calcium 9.2 mg/dl (8.4-10.2); Carbon Dioxide 34 mmol/L (22-30); Chloride 105 mmol/L (98-107); Estimated Creatinine Clearance 43 ml/min; Glucose 106 mg/dl (70-99); Potassium 3.4 mmol/L (3.5-5.1); Sodium 146 mmol/L (135-145); Total Bilirubin 1.6 mg/dl (0.2-1.3); eGFR 58.02
[2024-10-03 09:18] LABS: NT-proBNP 13300 pg/ml
[2024-10-03] MEDS: KCL 40 MEQ PO (10:11)
[2024-10-03] MEDS: LASIX 20 MG IV (10:11)
--- NOTE | 2024-10-03 11:36 | HPS.HSE ---
Family Physician
-
Family Physician: NOT KNOW UNKNOWN - PT DOES
Chief Complaint
-
Shortness of breath
History of Present Illness
Patient is 78 years old female with past medical history hypertrophic obstructive cardiomyopathy on Camzyos as outpatient recently discontinued, bioprosthetic MVR and prosthetic MS, A-fib, atrial clot, pulmonary hypertension, nonobstructive CAD,
aortic stenosis, hypertension, hyperlipidemia, COPD, came into the hospital with shortness of breath. Patient has noticed that she has been more short of breath over the last few days along with increasing peripheral edema and weight gain. She
reports some paroxysmal internal dyspnea. Patient does take diuretic on a regular basis but she also noticed because of some leg cramps she has been taking more fluid than usual. She also scheduled for mitral valve surgery at [facility] but this needed
to be postponed. She denies any chest pain. Denies any nausea vomiting or diarrhea. Denies any fevers or chills. Patient was in the hospital last month from August 23 to August 26 for CHF exacerbation. In the ER, INR 1.83, creatinine 1, potassium
3.4, sodium 146, BNP 13,300, hemoglobin 15.8, platelet count 139. Chest x-ray showed cardiomegaly with increased pulmonary vascularity suggesting CHF and small left and possible tiny right pleural effusions. Doppler ultrasound ordered and pending
results. She was referred to hospitalist service for evaluation.
Medical History
Past Medical History
Past Medical History: Reports Other
Additional Past Medical History:
[id number]
chronic CHF
COPD,
GERD
HTN,
history of endocarditis.
Hx hypertrophic cardiomyopathy
Chronic left knee pain
Past Surgical History: Reports Other
Additional Past Surgical History:
Appendectomy
Left knee surgery with reconstruction
Mitral valve tissue repair July 2014
A-fib cardioversion 2019
PVI ablation 04/21/2023
Social History
Tobacco: Former Smoker (40 years 1 pack a day quit 2014)
Alcohol: Daily (1 beer daily)
Drug: None
Personal: Single
Living: Alone
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
Family History
Family History: Not pertinent and Other (Both parents were killed in an automobile accident when she was 16 she was then sent to [employer] school with their life insurance as she states no one wanted her)
Allergies / Home Medications
Allergies reflects when Allergies were last updated in [facility].
Home Medications with original date entered in [facility]
Allergy/Medication List:
Allergies
Allergy/AdvReac Type Severity Reaction Status Date / Time
irbesartan Allergy As per pt- Verified 08/23/24 08:38
'I think
this is a
mistake.'
Penicillins Allergy Hives-As Verified 08/23/24 08:38
per pt:
'Hives in
my mouth
as a child'
procaine HCl [From Novocain] Allergy As per pt: Verified 08/23/24 08:38
no allergy
to Novocain
Home Medications
albuterol sulfate 90 mcg/actuation aerosol inhaler (Ventolin HFA) 2 puff inhalation R TIDPRN PRN SOB 07/11/21
amiodarone 200 mg tablet (Pacerone) 200 mg PO DAILY Arrhythmia 05/27/22
mavacamten 5 mg capsule (Camzyos) 15 mg PO DAILY CARDIOMYOPATHY 02/14/23
atorvastatin 20 mg tablet (Lipitor) 20 mg PO DAILY High Cholesterol 06/21/23
fluticasone 113 mcg-salmeterol 14 mcg/actuation breath activated powdr 2 inh inhalation R BID Lung/Breathing Issues 06/21/23
acetaminophen 325 mg tablet (Tylenol) 650 mg PO Q4HPRN PRN MILD PAIN 08/23/24
ascorbic acid (vitamin C) 500 mg tablet (Vitamin C) 500 mg PO DAILY Supplement 08/23/24
furosemide 80 mg tablet 80 mg PO BID@0800,1600 #60 tabs 08/26/24
metoprolol tartrate 25 mg tablet 75 mg (3 x 25 mg) PO BID #180 tabs 08/26/24
warfarin 2 mg tablet (Jantoven) 2 mg PO QPM #30 tabs 08/26/24
Review of Systems
-
A 12 point ROS was completed and negative except as noted: Yes
Physical Exam
Vital Signs
Vital Signs
Temp Pulse Resp BP Pulse Ox
97.5 F 80 22 137/70 94
10/03/24 08:43 10/03/24 10:33 10/03/24 10:33 10/03/24 10:33 10/03/24 10:33
Physical exam:
General: Acutely ill
HEENT: Normocephalic, Atraumatic and Moist Mucous Membranes
Respiratory: Coarse bilateral crackles in the bases; Negative Wheezes, or Rhonchi
Cardiac: Irregular rate and rhythm and S1/S2, systolic murmur
GI: Soft, Nontender and Nondistended
Musculoskeletal: No Clubbing, No Cyanosis. Hyperpigmentation present. Bilateral lower extremity edema L>R
Neuro: Awake, Alert and Oriented, no neurological deficit
Psych: Calm
Physical Exam
General: Other
Laboratory Results
-
10/03/24 08:50
10/03/24 08:50
Laboratory Results
PT 21.3 Sec (11.4-14.6) H 10/03/24 08:50
INR 1.83 10/03/24 08:50
APTT 35.6 Sec (23.4-35.0) H 10/03/24 08:50
Total Bilirubin 1.6 mg/dl (0.2-1.3) H 10/03/24 08:50
AST 36 U/L (14-36) 10/03/24 08:50
ALT 29 U/L (0-35) 10/03/24 08:50
Alkaline Phosphatase 100 U/L (38-126) 10/03/24 08:50
Impression/Plan
-
IMPRESSION:
Patient 78 years old female with multiple comorbidities presented to the hospital with shortness of breath and appears to be in acute on chronic heart failure decompensation. Patient increased risk of morbidity mortality therefore she will need to
be treated accordingly and monitor closely in the hospital.
PLAN:
Acute on chronic HFpEF:
IV diuretics Lasix 40 mg IV twice a day
BNP upon admission 13,300
Monitor strict I/O
Monitor daily weight
Monitor renal function and electrolytes
Reviewed latest echocardiogram on our system on 08/26 this year
Continue guideline-directed medical therapy for heart failure (GDMT)--> B-Blockers.
Fluid restriction
Salt restriction
Heart failure education
Follow up clinical response
Cardiology consult-discussed with cardiology in person
Paroxysmal A-fib:
Continue rate control, Toprol tartrate 75 mg twice a day
Continue antiarrhythmic, amiodarone 200 mg p.o. daily
Continue anticoagulation, warfarin-will give 5 mg dose tonight and recheck INR tomorrow to re-dose warfarin
Seen twelve-lead EKG A-fib at 82 bpm
Continue cardiac monitoring
Atrial thrombus:
Continue anticoagulation
Monitor INR closely
Bioprosthetic mitral valve stenosis:
Plan for valve surgery at [facility] as outpatient
Hypertension:
Continue home antihypertensive
Hyperlipidemia:
Continue home statins, atorvastatin 20 mg p.o. daily
COPD:
No bronchospasm
Continue home inhalers
No need for systemic steroids
DVT prophylaxis:
Warfarin
CODE STATUS:
Full code
Time spent 76 minutes
--- NOTE | 2024-10-03 14:07 | CM ---
Patient seen in ED. Patient states that [place] 2 [place]. Patient stated that she has no home O2 and no DME. Patient has not had any VN in the past. Patient from [place]. Patient PCP Dr. Sellers in [place]. Patient stated that she was to have surgery but it was postponed and she is uncertain of date at this time. Patient plan is for discharge home with no needs at this time. CM will continue to follow for discharge planning needs.
Plan; home with VN vs home with no needs.
--- NOTE | 2024-10-03 14:17 | EDRN ---
this RN called the receiving unit and notified them that paper report was going to be tubed up
--- NOTE | 2024-10-03 15:10 | PTCARENOTE ---
Pt arrived from ED at this time to rm 405-2. Pt AAOx3, Afib on telemetry, [place], O2 at 2L via NC- SPO2 95%. Pt able to ambulate independently into room, no use of assistive device at home. See shift assessment for further detail. Oriented pt to rm,
plan of care, reporting concerns, use of call burris etc- pt verbalized understanding. Call burris within reach.
--- NOTE | 2024-10-03 15:25 | CON.CAR ---
Consultation
Consultation Request
Date/Time Consultation Requested: October 03, 2024
Date/Time Consultation Performed: October 03, 2024
Requesting Provider: Dr. Casanova
Performing Provider: Dr. Perea
Reason for Consultation: Heart failure
Medical History
-
Chief Complaint: Shortness of breath
History of Present Illness:
Elizabeth is well-known to our practic. She comes to the emergency room for progressive shortness of breath. She admits to drinking more fluid than usual due to leg cramps. She had been scheduled for mitral valve procedure this coming week however
she states her YUE was not performed and this is going to be postponed. 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 She has a more recent history of hypertrophic cardiomyopathy and had been on
Camzyos being managed by [facility] however she has been taking off this medication by her physicians at [place]. She was recently hospitalized at from August 23 to with acute heart failure exacerbation and diuresed with IV Lasix
with weight down to 148 pounds. Creatinine was stable and she was discharged on Lasix 80 mg twice daily. Her Lasix dose has subsequently been increased and she was supposedly taking 160 mg twice a day. Her weight is up a couple pounds apparently.
Given her symptoms she was admitted for heart failure. Cardiology was consulted.
She was last seen in the office by Lucita JACOBSEN September 02, at that time she was given additional Lasix due to worsening shortness of breath.
Additional hx: Patient has a history of tissue MVR from 2014 and then more recently a diagnosis of hypertrophic cardiomyopathy and was started on Camzyos that was being managed at [place]. Patient was admitted to this hospital from 06/10/2024 until
06/12/2024 with acute HF and was diagnosed with IV Lasix. After that patient was seen in the office in June 2024 and had ongoing decline in exertional tolerance that was concerning for possible worsening hypertrophic cardiomyopathy or
bioprosthetic mitral valve stenosis.
Patient was sent for echo and then followed up at [place] and had YUE and cardiac cath. On YUE there was evidence of moderate mitral stenosis and the mean gradient was 8 mmHg and only mild , there was mild concentric LVH, but no concern for
worsening gradient. Patient then had R/LHC that showed PCWP 17, severe PHTN with PAP 42 mmHg and it appeared to be severe MS with a mean gradient of 10.05 mmHg and a calculated mitral valve area by Gorlin equation of 1.04 cm sq. patient was seen by
our office, on 08/11/2024 who was noted to be back in atrial fibrillation with worsened exertional symptoms and weight gain. Patient was started on Eliquis at the end of that OV. Patient was referred for YUE/CV at that time was found to have concern
for thrombus in the MARIANELA and then also spontaneous echo contrast in the LA. Eliquis was stopped and patient was started on warfarin. Patient reported then that she was taking both Eliquis and warfarin and came to ER with dyspnea and INR > 8 at that
time in August 2024.
Past medical history:
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
Chronic HFpEF
Spontaneous echo contrast in the left atrium and definite thrombus in the MARIANELA by YUE 08/13/2024
Eliquis transitioned to warfarin for LA smoke by YUE 08/13/24
Paroxysmal atrial fibrillation
s/p PVI 04/2023
HCM, severe concentric LVH, previously on Camzyos dosing changes managed at [place]
PHTN
s/p RHC at [place] 12/2023
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
Mild , peak to peak gradient 11 mmHg by cath at [place] 07/29/24
h/o endocarditis
Hypertension
Hyperlipidemia
COPD
Past Medical History
Past Surgical History: Appendectomy, Cardiac (Bioprosthetic mitral valve replacement 2014) and Orthopedic
Social History
Tobacco: Former Smoker
Alcohol: Daily (1 beer a day)
Drug: None
Personal: Single
Living: Alone
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
Family History
Family History: Reviewed & Not Pertinent
Allergies / Home Medications
Allergy/AdvReac Type Severity Reaction Status Date / Time
irbesartan Allergy As per pt- Verified 08/23/24 08:38
'I think
this is a
mistake.'
Penicillins Allergy Hives-As Verified 08/23/24 08:38
per pt:
'Hives in
my mouth
as a child'
procaine HCl [From Novocain] Allergy As per pt: Verified 08/23/24 08:38
no allergy
to Novocain
�Medication �Instructions �Recorded �Confirmed �Type
albuterol sulfate 90 mcg/actuation 2 puff inhalation R TIDPRN PRN SOB 07/11/21 10/03/24 History
aerosol inhaler (Ventolin HFA)
amiodarone 200 mg tablet (Pacerone) 200 mg PO DAILY Arrhythmia 05/27/22 10/03/24 History
atorvastatin 20 mg tablet (Lipitor) 20 mg PO DAILY High Cholesterol 06/21/23 10/03/24 History
fluticasone 113 mcg-salmeterol 14 2 inh inhalation R BID 06/21/23 10/03/24 History
mcg/actuation breath activated Lung/Breathing Issues
powdr
acetaminophen 325 mg tablet 650 mg PO Q4HPRN PRN MILD PAIN 08/23/24 10/03/24 History
(Tylenol)
ascorbic acid (vitamin C) 500 mg 500 mg PO DAILY Supplement 08/23/24 10/03/24 History
tablet (Vitamin C)
furosemide 80 mg tablet 80 mg PO BID@0800,1600 #60 tabs 08/26/24 10/03/24 Rx
metoprolol tartrate 25 mg tablet 75 mg (3 x 25 mg) PO BID #180 tabs 08/26/24 10/03/24 Rx
warfarin 2 mg tablet (Jantoven) 2.5 mg PO QPM 10/03/24 10/03/24 History
Review of Systems
-
History Source: Patient
All other systems: Negative unless noted
Respiratory: Trouble Breathing
Physical Exam
Vital Signs
Temp Pulse Resp BP Pulse Ox
98.0 F 90 20 152/76 95
10/03/24 15:07 10/03/24 15:07 10/03/24 15:07 10/03/24 15:07 10/03/24 15:07
Physical examination:
General: No acute distress, AAOX3
Neck: Negative JVD
Heart: Irregular regular, Negative S3 positive S1/S2, Negative S4, No murmur
Lungs: CTA b/l, negative wheezes/rales/rhonchi
Abd: Positive BS, NT/ND, neg rebound/rigidity/guarding
Ext: Negative cyanosis/clubbing/edema
Neuro: nonfocal
Lab Results
10/03/24 08:50
10/03/24 08:50
Cut-Y-Zesylvhspcw Pept 95029 pg/ml 10/03/24 08:50
Impression / Plan
-
.
PCP: Antonieta Clark MD
CDY: Yahaira Evans MD locally and Dr. Pat at [place] ([phone])
Impression:
Acute on chronic HFpEF
Subtherapeutic INR
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
Hx MARIANELA thrombus with hx spontaneous echo contrast in the left atrium and definite thrombus in the MARIANELA by YUE 08/13/2024
Eliquis transitioned to warfarin for LA smoke by YUE 08/13/24
Paroxysmal atrial fibrillation
s/p PVI 04/2023
HCM, severe concentric LVH, previously on Camzyos dosing changes managed at [place]
PHTN
s/p RHC at [place] 12/2023
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
Mild , peak to peak gradient 11 mmHg by cath at [place] 07/29/24
h/o endocarditis
Hypertension
Hyperlipidemia
COPD
RHC 12/24/2023: Performed at [place], PCWP consistent with severe PHTN, PVR 8 Wood units and mildly depressed assumed [place] cardiac index
R/LHC 07/29/2024: PCWP 17 mmHg, severe PHTN with PAP 42 mmHg, PVR 6.58 Wood units, CI 2.29, severe mitral stenosis with mean gradient 10.05 mmHg and calculated mitral valve area by Gorlin equation 1.04 cm sq, noncritical CAD, LM luminal
irregularities, LAD luminal irregularities, circumflex 50% mid lesion otherwise luminal irregularities, RCA luminal irregularities
YUE 06/07/22: EF 70-75%, severe cLVH, well seated bioprosthetic MV, mild MS, mild , mild AR
Echo 06/23/23: EF 70 to 75%, mild concentric LVH, mid cavitary gradient is 76/29 at rest and 89/35 with Valsalva, bioprosthetic mitral valve with mean gradient 8 mmHg and no MR, moderate peak/mean 67/37 mmHg and ZACHARY 1.3 cm sq, some transvalvular
gradient could be secondary to severe LVH, mild pulmonic regurgitation
Echo 10/08/23: LVOT peak gradient 5 mmHg at rest up to 31 with Valsalva, EF 75%, hyperdynamic LV
Echo 12/01/23: EF 60%, mid cavitary obstruction with LVOT gradient 20 mmHg at rest increased to 27 with Valsalva, normal function of bioprosthetic mitral valve, moderate TR with PAP 88 mmHg
Echo @ [place] 05/25/2024: EF 75%, LVIS measures 1.5 cm, LVOT peak gradient at rest measures 16 mmHg, with Valsalva up to 51 mmHg, GLS 11.5%, bioprosthetic mitral valve with trace MR with peak/mean gradients 28/11 mmHg, mild with peak/mean gradients
21/11 mmHg, mild to moderate AR, mild TR, estimated PAP 87 mmHg
Echo 06/10/2024: LV small size with severe concentric LVH (interventricular septum 2.3 cm, posterior wall 2 cm), no WMA, EF 65 to 70%, mid cavitary gradient of at least 5 mmHg up to 23 with Valsalva, LVOT gradient at rest is 9 with Valsalva up to 18,
normal RV size and function, moderate TR with PAP 80 to 85 mmHg, compared to echo from 12/01/2023 at [place] RV is now mildly dilated consistent with PHTN seen on most recent workup and aortic valve now with moderate insufficiency
YUE 07/29/24: [place] study, normal LV size, mildly increased LV wall thickness of mild concentric LVH, EF 60%, mildly decreased RV systolic function with mild dilation, no thrombus present in the left atrial appendage, bioprosthetic mitral valve
prosthesis with moderate mitral valve leaflet calcification and trace MR, moderate mitral stenosis with mean mitral valve gradient 8 mmHg, mild , mild aortic regurgitation
YUE 08/13/24: [facility] at [facility] study, EF 65%, moderately dilated RV with mild RV hypokinesis, severely dilated LA with evidence of spontaneous echo contrast and definite MARIANELA thrombus, bioprosthetic mitral valve with marked thickening and
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
Plan:
She is close to her dry weight. Continue IV Lasix diuresis.
Monitor I's and O's Daily weights and creatinine.
Outpatient follow-up with [facility] for reevaluation for timing of mitral valve procedure
Heart failure teaching. Discussed fluid restriction with patient.
Remains in atrial fibrillation. Continue rate control strategy with anticoagulation given previous left atrial appendage thrombus August 2024.
IV heparin bridge given subtherapeutic INR.
Continue metoprolol and amiodarone for rate control
Patient with known bioprosthetic mitral valve stenosis and MPG by cath at [place] 07/29/24 was 10.05.
Follow-up at [facility] to discuss timing of mitral valve procedure, possible TMVR
She is currently not taking Camzyos, with known HOCM that is managed at [place]
Discussed with primary service
Data Reviewed
-
EKG: Tracing Personally Visualized and interpreted
Labs: Labs Reviewed by me
Old Records: Reviewed
[2024-10-03 17:15] LABS: APTT 34.5 Sec (23.4-35.0)
[2024-10-03] MEDS: LASIX 40 MG IV (17:28)
[2024-10-03] MEDS: COUMADIN 5 MG PO (17:28)
[2024-10-03] MEDS: FLUSH (NSS) 2 FLUSH IV (17:29)
[2024-10-03] MEDS: HEPARIN 25000 UNITS/250 ML IV (17:58)
[2024-10-03] MEDS: ADVAIR HFA 115/21 MCG INHALER 2 PUFF INH (19:44)
[2024-10-03] MEDS: TYLENOL 650 MG PO (20:16)
[2024-10-03] MEDS: LOPRESSOR 75 MG PO (20:17)
[2024-10-04 03:03] VITALS: BP 131/64
--- NOTE | 2024-10-04 06:28 | W.PN.HOSP.TC ---
Today's Communication/Plan
-
wean O2 as tolerated
cont hep Coumadin bridge
check CT abd aorta angio w/ run off
cont IV diuresis
Assessment / Plan
Assessment / Plan
Physical exam:
General: No acute distress, appears comfortable at this time
HEENT: Normocephalic, Atraumatic and Moist Mucous Membranes
Respiratory: Coarse bilateral crackles in the bases; Negative Wheezes, or Rhonchi
Cardiac: Irregular rate and rhythm and S1/S2, systolic murmur
GI: Soft, Nontender and Nondistended
Musculoskeletal: No Clubbing. Lower ext edema +1. Lt foot cyanotic appearance significantly cool to touch especially in contrast to right foot, no significant tenderness, difficult to appreciate pedal pulse.
Neuro: AOx3 conversant coherent
Psych: Calm
IMPRESSION:
Patient 78 years old female with multiple comorbidities presented to the hospital with shortness of breath and appears to be in acute on chronic heart failure decompensation. Patient increased risk of morbidity mortality therefore she will need to
be treated accordingly and monitor closely in the hospital.
PLAN:
Acute on chronic HFpEF:
IV diuretics Lasix 40 mg IV twice a day
BNP upon admission 13,300
daily weight I/O
Monitor renal function and electrolytes
Reviewed latest echocardiogram on our system on 08/26 this year
cont metoprolol
Fluid and Salt restriction
Cardio eval appreciated
LLE Foot cyanosis
pt reports present/progressive for past 2 weeks
painless
Vascular eval requested
check CT abd aorta angio w/ run off
Paroxysmal Afib:
Subtherapeutic INR
Continue rate control, Toprol tartrate 75 mg twice a day
Continue antiarrhythmic, amiodarone 200 mg p.o. daily
Hep Coumadin Bridge
Continue cardiac monitoring
Atrial thrombus:
Continue anticoagulation
Monitor INR closely
Bioprosthetic mitral valve stenosis:
Plan for valve surgery at [facility] as outpatient
Hypertension:
Continue home antihypertensive
Hyperlipidemia:
Continue home statins, atorvastatin 20 mg p.o. daily
COPD:
No bronchospasm
Continue home inhalers
No need for systemic steroids
DVT prophylaxis:
Warfarin
CODE STATUS:
Full code
I spent a total of 50 minutes with the patient or on the floor. More than 50% of this time involved counseling and coordination of care.
Anticipated Discharge: 24 - 48 hours
Subjective/Interval History
-
Date of Service: October 04, 2024
No acute distress, appears relatively comfortable at this time. Reports worsening shortness of breath and weight gain. Also noted LLE Foot discoloration cyanosis significant coolness compared to RLE foot. Denies pain,
Objective Data
-
Labs:
Laboratory Results
10/04/24 10/04/24 10/04/24
00:06 06:00 07:00
WBC Pending
Hgb Pending
Hct Pending
Plt Count Pending
PT Pending
INR Pending
APTT 43.0 H Pending
Sodium Pending
Potassium Pending
Chloride Pending
Carbon Dioxide Pending
BUN Pending
Creatinine Pending
Glucose Pending
Calcium Pending
Vital Signs:
Vital Signs
Temp Pulse Resp BP Pulse Ox
97.4 F 84 16 131/64 92
10/04/24 03:03 10/04/24 03:03 10/04/24 03:03 10/04/24 03:03 10/04/24 03:03
I&O
10/02/24 10/03/24 10/04/24
06:59 06:59 06:59
Intake Total 488 / 488
Output Total 250 / 250
Balance 238 / 238
[2024-10-04] MEDS: ADVAIR HFA 115/21 MCG INHALER 2 PUFF INH ×2 (07:09→18:24)
[2024-10-04 07:24] LABS: Hematocrit 49.8 % (37.0-47.0); Hemoglobin 15.5 g/dL (12.0-16.0); Mean Corp Hgb Conc. 31.1 g/dL (33.0-37.0); Mean Corpuscular Hgb 29.8 pg (27.0-31.0); Mean Corpuscular Volume 95.6 fL (81.0-99.0); Mean Platelet Volume 10.2 fL (7.4-10.4); Platelet Count 126 10^3/uL (130-400); Red Blood Cell Count 5.21 10^6/uL (4.20-5.40); Red Cell Dist. Width 16.3 % (11.5-14.5); White Blood Cell Count 6.3 10^3/uL (4.8-10.8)
[2024-10-04 07:39] LABS: INR 1.78; PT 20.9 Sec (11.4-14.6)
[2024-10-04 07:40] LABS: APTT 35.4 Sec (23.4-35.0)
[2024-10-04 07:43] VITALS: BP 130/70
[2024-10-04 08:09] LABS: Blood Urea Nitrogen 31 mg/dl (7-17); Calcium 9.1 mg/dl (8.4-10.2); Carbon Dioxide 30 mmol/L (22-30); Chloride 108 mmol/L (98-107); Estimated Creatinine Clearance 47 ml/min; Glucose 137 mg/dl (70-99); Potassium 3.6 mmol/L (3.5-5.1); Sodium 144 mmol/L (135-145); eGFR > 60.00
[2024-10-04 08:14] VITALS: BMI 27.5
[2024-10-04] MEDS: LOPRESSOR 75 MG PO ×2 (08:15→19:51)
[2024-10-04] MEDS: LASIX 40 MG IV ×2 (08:15→16:56)
[2024-10-04] MEDS: PACERONE 200 MG PO (08:15)
[2024-10-04] MEDS: LIPITOR 20 MG PO (08:15)
[2024-10-04] MEDS: FLUSH (NSS) 1 FLUSH IV ×2 (08:16→16:57)
[2024-10-04 11:20] VITALS: BMI 27.5
--- NOTE | 2024-10-04 11:21 | W.PN.CARDCBS ---
Today's Communication / Plan
-
IV Lasix today. Hopefully transition to oral in the next 24 to 48 hours.
Continue heparin bridge to therapeutic INR
Impression / Plan
-
PCP: Antonieta Clark MD
CDY: Yahaira Evans MD locally and Dr. Pat at [place] ([phone])
Impression:
Acute on chronic HFpEF
Subtherapeutic INR
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
Hx MARIANELA thrombus with hx spontaneous echo contrast in the left atrium and definite thrombus in the MARIANELA by YUE 08/13/2024
Eliquis transitioned to warfarin for LA smoke by YUE 08/13/24
Paroxysmal atrial fibrillation
s/p PVI 04/2023
HCM, severe concentric LVH, previously on Camzyos dosing changes managed at [place]
PHTN
s/p RHC at [place] 12/2023
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
Mild , peak to peak gradient 11 mmHg by cath at [place] 07/29/24
h/o endocarditis
Hypertension
Hyperlipidemia
COPD
RHC 12/24/2023: Performed at [place], PCWP consistent with severe PHTN, PVR 8 Wood units and mildly depressed assumed [place] cardiac index
R/LHC 07/29/2024: PCWP 17 mmHg, severe PHTN with PAP 42 mmHg, PVR 6.58 Wood units, CI 2.29, severe mitral stenosis with mean gradient 10.05 mmHg and calculated mitral valve area by Gorlin equation 1.04 cm sq, noncritical CAD, LM luminal
irregularities, LAD luminal irregularities, circumflex 50% mid lesion otherwise luminal irregularities, RCA luminal irregularities
YUE 06/07/22: EF 70-75%, severe cLVH, well seated bioprosthetic MV, mild MS, mild , mild AR
Echo 06/23/23: EF 70 to 75%, mild concentric LVH, mid cavitary gradient is 76/29 at rest and 89/35 with Valsalva, bioprosthetic mitral valve with mean gradient 8 mmHg and no MR, moderate peak/mean 67/37 mmHg and ZACHARY 1.3 cm sq, some transvalvular
gradient could be secondary to severe LVH, mild pulmonic regurgitation
Echo 10/08/23: LVOT peak gradient 5 mmHg at rest up to 31 with Valsalva, EF 75%, hyperdynamic LV
Echo 12/01/23: EF 60%, mid cavitary obstruction with LVOT gradient 20 mmHg at rest increased to 27 with Valsalva, normal function of bioprosthetic mitral valve, moderate TR with PAP 88 mmHg
Echo @ [place] 05/25/2024: EF 75%, LVIS measures 1.5 cm, LVOT peak gradient at rest measures 16 mmHg, with Valsalva up to 51 mmHg, GLS 11.5%, bioprosthetic mitral valve with trace MR with peak/mean gradients 28/11 mmHg, mild with peak/mean gradients
21/11 mmHg, mild to moderate AR, mild TR, estimated PAP 87 mmHg
Echo 06/10/2024: LV small size with severe concentric LVH (interventricular septum 2.3 cm, posterior wall 2 cm), no WMA, EF 65 to 70%, mid cavitary gradient of at least 5 mmHg up to 23 with Valsalva, LVOT gradient at rest is 9 with Valsalva up to 18,
normal RV size and function, moderate TR with PAP 80 to 85 mmHg, compared to echo from 12/01/2023 at [place] RV is now mildly dilated consistent with PHTN seen on most recent workup and aortic valve now with moderate insufficiency
YUE 07/29/24: [place] study, normal LV size, mildly increased LV wall thickness of mild concentric LVH, EF 60%, mildly decreased RV systolic function with mild dilation, no thrombus present in the left atrial appendage, bioprosthetic mitral valve
prosthesis with moderate mitral valve leaflet calcification and trace MR, moderate mitral stenosis with mean mitral valve gradient 8 mmHg, mild , mild aortic regurgitation
YUE 08/13/24: [facility] at [place] study, EF 65%, moderately dilated RV with mild RV hypokinesis, severely dilated LA with evidence of spontaneous echo contrast and definite MARIANELA thrombus, bioprosthetic mitral valve with marked thickening and
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
Plan:
She is close to her dry weight. Continue IV Lasix diuresis.
Monitor I's and O's Daily weights and creatinine.
Hopefully transition to PO lasix in the next 24-48hrs
Outpatient follow-up with [facility] for reevaluation for timing of mitral valve procedure
Heart failure teaching. Discussed fluid restriction with patient.
Remains in atrial fibrillation. Continue rate control strategy with anticoagulation given previous left atrial appendage thrombus August 2024.
IV heparin bridge given subtherapeutic INR.
Continue metoprolol and amiodarone for rate control
Patient with known bioprosthetic mitral valve stenosis and MPG by cath at [place] 07/29/24 was 10.05.
Follow-up at [facility] to discuss timing of mitral valve procedure, possible TMVR
She is currently not taking Camzyos, with known HOCM that is managed at [place]
Discussed with primary service
Progress Note - Gravity Meter Observer
Subjective
Date of Service: October 04, 2024
No acute overnight events. Patient resting comfortably today. No chest discomfort or shortness of breath.
Objective
Labs:
10/04/24 07:17
10/04/24 07:17
Labs
Hgb 15.5 g/dL (12.0-16.0) 10/04/24 07:17
Hct 49.8 % (37.0-47.0) H 10/04/24 07:17
Plt Count 126 10^3/uL (130-400) L 10/04/24 07:17
PT 20.9 Sec (11.4-14.6) H 10/04/24 07:17
INR 1.78 10/04/24 07:17
APTT 35.4 Sec (23.4-35.0) H 10/04/24 07:17
Sodium 144 mmol/L (135-145) 10/04/24 07:17
Potassium 3.6 mmol/L (3.5-5.1) 10/04/24 07:17
BUN 31 mg/dl (7-17) H 10/04/24 07:17
Creatinine 0.9 mg/dL (0.6-1.0) 10/04/24 07:17
Glucose 137 mg/dl (70-99) H 10/04/24 07:17
Vital Signs and I&O:
Vital Signs
Temp Pulse Resp BP Pulse Ox
98.2 F 92 18 130/70 85
10/04/24 07:43 10/04/24 08:15 10/04/24 07:43 10/04/24 08:15 10/04/24 09:15
Vital Signs
Temp Pulse Resp BP Pulse Ox
98.2 F 92 18 130/70 85
10/04/24 07:43 10/04/24 08:15 10/04/24 07:43 10/04/24 08:15 10/04/24 09:15
Intake & Output
10/02/24 10/03/24 10/04/24 10/05/24
06:59 06:59 06:59 06:59
Intake Total 488 / 488
Output Total 250 / 250
Balance 238 / 238
Physical Exam
Physical Exam
Gen: NAD, AA
HEENT: NC/AT, sclera anicteric
Neck: No JVD
CV: Irregularly irregular, 3/6 holosystolic murmur
Lungs: CTAB on RA
Abd: S/ND
Ext: No LE edema
Skin: Warm, dry
Neuro: Non-focal
[2024-10-04 11:36] VITALS: BP 124/68
[2024-10-04 15:05] VITALS: BP 132/63
[2024-10-04 15:06] LABS: APTT 35.1 Sec (23.4-35.0)
--- NOTE | 2024-10-04 16:45 | PTCARENOTE ---
Pt AAO x3, HAHN; OOB to BR with minimal assistance; denies weakness/dizziness w/OOB activity. Pt [facility]. VSS. Telemetry:A fib. Maintained on nc 1 lpm- pulse ox 95%; pt with (+) slight CLAYTON; denies SOB. Abd large, soft, azalea PO well. Voids mod amts
clear yellow urine on specipan. Afebrile; lower legs reddened/dusky Lt > Rt. IV Heparin drip @ 1400 units hr (14 ml/hr) infusing via Rt AC site without sx of infiltration. resting in bed at present, no c/o. Will continue to monitor.
[2024-10-04] MEDS: COUMADIN 2.5 MG PO (17:54)
[2024-10-04 19:57] VITALS: BP 119/73
[2024-10-04] MEDS: TYLENOL 650 MG PO (22:00)
[2024-10-04 23:55] VITALS: BP 115/67
[2024-10-05] VITALS (7 sets, daily range): BP systolic 108–132; BP diastolic 50–64; O2SAT 90; BMI 27.5
[2024-10-05] MEDS: TYLENOL 650 MG PO (02:58)
[2024-10-05] MEDS: HEPARIN 25000 UNITS/250 ML IV ×2 (03:00→23:41)
[2024-10-05 04:59] LABS: Hematocrit 48.9 % (37.0-47.0); Hemoglobin 15.1 g/dL (12.0-16.0); Mean Corp Hgb Conc. 30.9 g/dL (33.0-37.0); Mean Corpuscular Hgb 29.8 pg (27.0-31.0); Mean Corpuscular Volume 96.4 fL (81.0-99.0); Platelet Count 123 10^3/uL (130-400); Red Blood Cell Count 5.07 10^6/uL (4.20-5.40); Red Cell Dist. Width 16.4 % (11.5-14.5); White Blood Cell Count 5.8 10^3/uL (4.8-10.8)
[2024-10-05 05:15] LABS: APTT 154.7 Sec (23.4-35.0)
[2024-10-05 05:53] LABS: Blood Urea Nitrogen 37 mg/dl (7-17); Calcium 9.6 mg/dl (8.4-10.2); Carbon Dioxide 31 mmol/L (22-30); Chloride 107 mmol/L (98-107); Estimated Creatinine Clearance 47 ml/min; Glucose 129 mg/dl (70-99); Phosphorus 4.3 mg/dl (2.5-4.5); Potassium 4.2 mmol/L (3.5-5.1); eGFR > 60.00
[2024-10-05 06:02] LABS: Magnesium 2.6 mg/dl (1.6-2.3); Sodium 142 mmol/L (135-145)
[2024-10-05] MEDS: ADVAIR HFA 115/21 MCG INHALER 2 PUFF INH ×2 (07:26→19:44)
--- NOTE | 2024-10-05 07:50 | W.PN.HOSP.TC ---
Today's Communication/Plan
-
cont diuresis, npo after midnight for YUE, as per Cardio
hep Coumadin bridge
PT/OT
wean O2 supplementation as tolerated
Assessment / Plan
Assessment / Plan
Physical exam:
General: No acute distress, appears comfortable at this time
HEENT: Normocephalic, Atraumatic and Moist Mucous Membranes
Respiratory: Coarse bilateral crackles in the bases; Negative Wheezes, or Rhonchi
Cardiac: Irregular rate and rhythm and S1/S2, systolic murmur
GI: Soft, Nontender and Nondistended
Musculoskeletal: No Clubbing. Lower ext edema +1. Lt foot cyanotic appearance significantly cool to touch especially in contrast to right foot, no significant tenderness, difficult to appreciate pedal pulse.
Neuro: AOx3 conversant coherent
Psych: Calm
IMPRESSION:
78F HOCM afib atrial thrombus MVR here for acute on chronic HFpEF.
PLAN:
Acute on chronic HFpEF:
IV diuretics Lasix increased from 40 mg to 80 mg IV twice a day as per Cardio d/t lack of wt loss (pt gained wt)
BNP upon admission 13,300
daily weight I/O
Monitor renal function and electrolytes
cont metoprolol
Fluid and Salt restriction
Cardio eval appreciated npo after midnight for YUE
LLE Foot cyanosis
pt reports present/progressive for past [address] abd aorta angio w/ run off appreciated no significant arterial stenosis
REDDY/TBI results appreciated
Vascular eval appreciated discoloration likely d/t venous congestion
Paroxysmal Afib:
Subtherapeutic INR
Continue rate control, Toprol tartrate 75 mg twice a day
Continue antiarrhythmic, amiodarone 200 mg p.o. daily
Hep Coumadin Bridge
Continue cardiac monitoring
Atrial thrombus:
Continue anticoagulation
Monitor INR closely
Bioprosthetic mitral valve stenosis:
Plan for valve surgery at [place] [facility] as outpatient
Hypertension:
Continue home antihypertensive
Hyperlipidemia:
Continue home statins, atorvastatin 20 mg p.o. daily
COPD:
No bronchospasm
Continue home inhalers
No need for systemic steroids
PT/OT appreciated home services vs no needs
DVT prophylaxis:
hep gtt
CODE STATUS:
Full code
I spent a total of 50 minutes with the patient or on the floor. More than 50% of this time involved counseling and coordination of care.
Anticipated Discharge: 24 - 48 hours
Subjective/Interval History
-
Date of Service: October 05, 2024
No acute distress. Reports overall feeling well, improvement in breathing. Remains dependent on oxygen supplementation albeit low dose.
Objective Data
-
Labs:
Laboratory Results
10/04/24 10/05/24 10/05/24
21:50 04:32 12:15
WBC 5.8
Hgb 15.1
Hct 48.9 H
Plt Count 123 L
APTT 39.0 H 154.7 H* Pending
Sodium 142
Potassium 4.2
Chloride 107
Carbon Dioxide 31 H
BUN 37 H
Creatinine 0.9
Glucose 129 H
Calcium 9.6
Vital Signs:
Vital Signs
Temp Pulse Resp BP Pulse Ox
98.0 F 71 18 108/64 96
10/05/24 03:01 10/05/24 07:28 10/05/24 07:28 10/05/24 03:01 10/05/24 07:28
I&O
10/04/24 10/05/24 10/06/24
06:59 06:59 06:59
Intake Total 488 / 488 1854 / 1854
Output Total 250 / 250 2125 / 2125
Balance 238 / 238 -271 / -271
--- NOTE | 2024-10-05 07:54 | CON.VAS ---
Consultation
Consultation Request
Date/Time Consultation Performed: 10/05/24 0730
Requesting Provider: Hospitalist
Performing Provider: Izzy Ling, NADJA-C for Maulik Calero M.D.
Reason for Consultation: Discoloration of bilateral feet, left worse than right
Medical History
-
Chief Complaint: Shortness of breath
History of Present Illness:
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
endocarditis, hypertension, hyperlipidemia, and COPD who presented to [facility] on 10/03/2024 with reports of worsening shortness of breath following increased fluid due to bilateral leg cramping. Patient was subsequently admitted for management
of heart failure, with subsequent notice of left worse than right discoloration of feet prompting vascular surgery consultation. Patient endorses that she noticed slowly increasing light bluish discoloration of bilateral feet roughly 2 to 3 weeks
ago, accompanying increased swelling of bilateral lower extremities. She denies any pain in bilateral lower extremities or prior arterial revascularization. Patient does note discoloration is worse in left foot than right, as is swelling, however
she attributes this to her history of left knee fracture. Other than discoloration of bilateral feet she offers no other complaints to bilateral lower extremities. Denies claudication or rest pain. She is on Coumadin.
Past Medical History
Past Medical History: Arrhythmias (Atrial fibrillation), CAD (Nonobstructive), CHF (severe concentric LVH, Chronic HFpEF), COPD, HTN, Valvular Disease (Bioprosthetic mitral valve replacement 2014 with prosthetic MS, thrombus in the MARIANELA by YUE
08/13/2024, mild ) and Other (endocarditis, hyperlipidemia)
Past Surgical History: Appendectomy, Cardiac (Bioprosthetic mitral valve replacement 2014) and Orthopedic
Social History
Tobacco: Former Smoker (1 pack/day, quit 10 years ago)
Allergies / Home Medications
Allergy/AdvReac Type Severity Reaction Status Date / Time
irbesartan Allergy As per pt- Verified 08/23/24 08:38
'I think
this is a
mistake.'
Penicillins Allergy Hives-As Verified 08/23/24 08:38
per pt:
'Hives in
my mouth
as a child'
procaine HCl [From Novocain] Allergy As per pt: Verified 08/23/24 08:38
no allergy
to Novocain
�Medication �Instructions �Recorded �Confirmed �Type
albuterol sulfate 90 mcg/actuation 2 puff inhalation R TIDPRN PRN SOB 07/11/21 10/03/24 History
aerosol inhaler (Ventolin HFA)
amiodarone 200 mg tablet (Pacerone) 200 mg PO DAILY Arrhythmia 05/27/22 10/03/24 History
atorvastatin 20 mg tablet (Lipitor) 20 mg PO DAILY High Cholesterol 06/21/23 10/03/24 History
fluticasone 113 mcg-salmeterol 14 2 inh inhalation R BID 06/21/23 10/03/24 History
mcg/actuation breath activated Lung/Breathing Issues
powdr
acetaminophen 325 mg tablet 650 mg PO Q4HPRN PRN MILD PAIN 08/23/24 10/03/24 History
(Tylenol)
ascorbic acid (vitamin C) 500 mg 500 mg PO DAILY Supplement 08/23/24 10/03/24 History
tablet (Vitamin C)
furosemide 80 mg tablet 80 mg PO BID@0800,1600 #60 tabs 08/26/24 10/03/24 Rx
metoprolol tartrate 25 mg tablet 75 mg (3 x 25 mg) PO BID #180 tabs 08/26/24 10/03/24 Rx
warfarin 2 mg tablet (Jantoven) 2.5 mg PO QPM 10/03/24 10/03/24 History
Review of Systems
-
History Source: Patient
Constitutional: Reports No Symptoms
EENT: Reports No Symptoms
Respiratory: Reports Trouble Breathing
Cardiac: Reports No Symptoms
Vascular: Denies Leg Pain / Claudication
Abdomen/GI: Reports No Symptoms
: Reports No Symptoms
Musculoskeletal: Reports Edema (Bilateral lower extremities with edema)
Skin: Reports Other (Slight discoloration of bluish tinge in bilateral feet, left worse than right)
Neurological: Reports No Symptoms
Endocrine: Reports No Symptoms
Physical Exam
Vital Signs
Temp Pulse Resp BP Pulse Ox
98.0 F 71 18 108/64 96
10/05/24 03:01 10/05/24 07:28 10/05/24 07:28 10/05/24 03:01 10/05/24 07:28
Lab Results
10/05/24 04:32
10/05/24 04:32
Iru-[id number] Pept 52534 pg/ml 10/03/24 08:50
Physical Exam
General: No Apparent Distress and Comfortable
HEENT: Normocephalic, Anicteric and Atraumatic
Respiratory: Non Labored Respirations
Cardiac: Negative JVD
GI: Soft, Non Tender and Non Distended
Musculoskeletal: Edema (Left lower extremity +1 edema, right lower extremity trace edema)
Skin: Warm and Other (Patient with bilateral slight discoloration and bluish tinge to feet when dependent, lately resolves with elevation, cap refill less than 3 seconds)
Neuro: AO x 3
Pulses: Bilateral Femoral: +1 (Unable to palpate bilateral lower extremity)
Assessment / Plan
-
Assessment: 78-year-old female admitted for heart failure exacerbation with reports of 2 to 3 weeks of ongoing left worse than right blue discoloration to bilateral feet, suspect venous congestion
Plan:
CTA aorta with runoff demonstrates no significant arterial stenosis, for complete evaluation we will also obtain REDDY/TBI
I performed this shared service with the attending. I evaluated the patient [id number] and have entered clinical documentation as shown in the encounter note. I performed the following component(s):�history and physical exam. Note that medical
decision making is not final until attested by vascular attending.
Data Reviewed
-
CT Scan: Report Reviewed by me, Discussed with Physician and Discussed with Patient
Labs: Labs Reviewed by me
--- NOTE | 2024-10-05 08:01 | W.PN.UPDATE ---
Update Note
Progress Note Update
Seen and examined with [employer]. Full consultation to follow. 78-year-old female with history of MVR in 2015. Recurrent mitral valve stenosis. Presents with shortness of breath. She notes that in the past when she had mitral valve issues, she had
developed leg swelling. She notes chronically her left leg tends to swell more than her right possibly secondary to knee issues and knee surgery on that side as well. Noted over the last 2 to 3 weeks bluish discoloration of her left foot more so
although she has been noticing it in her right foot over the last day or 2 as well. Denies any pain in the foot. No claudication type discomfort. No coronary disease, but mitral valve disease as noted. She does have a history of tobacco use she
quit 10 years ago. On exam/she is awake and alert. No acute distress. Breathing is unlabored on nasal cannula. Abdomen is soft, nondistended, nontender. Femoral pulses palpable bilaterally. Popliteal pulses also palpable bilaterally. 1+/2+
both. Feet are warm. Possibly weak DP pulses. Left ankle with slightly more edema than right side. Slight cyanotic discoloration to the toes in both feet perhaps the left side slightly worse than right. No rubor, no ulcerations.
CT angiogram that I had requested yesterday reviewed yesterday by me. Mild to moderate atherosclerosis throughout bilateral lower extremity vessels, but no high-grade stenoses. No evidence of acute thrombotic/embolic or atherosclerotic occlusive
issues.
Plan/ Asymptomatic cyanotic discoloration of left greater than right foot. Likely venous congestion secondary systemic condition. Could also be some component of small vessel vasoconstriction. Regardless likely nothing to do. Will obtain
REDDY/TBI's to confirm adequate perfusion otherwise. Likely will sign off following those studies. Please call with any questions.
[2024-10-05] MEDS: PACERONE 200 MG PO (08:20)
[2024-10-05] MEDS: LOPRESSOR 75 MG PO ×2 (08:20→20:35)
[2024-10-05] MEDS: LIPITOR 20 MG PO (08:20)
--- NOTE | 2024-10-05 08:41 | W.PN.CARDCBS ---
Addendum entered and electronically signed by Maximus Christopher MD 10/05/24 15:06:
I saw and examined the patient.
The Outbound Sales Executive's note was reviewed and I agree with the note.
Comment: Briefly, 78-year-old woman with past medical history of heart failure with preserved ejection fraction, hypertrophic cardiomyopathy, bioprosthetic mitral valve replacement complicated by prosthetic mitral stenosis and atrial fibrillation
with history of left atrial appendage thrombus who presented in acute decompensated heart failure.
Despite IV Lasix twice daily her weight is up several pounds and she is still requiring 1 L supplemental oxygen
Plan to increase Lasix to 80 mg IV twice daily
Follow daily standing weights, electrolytes and renal function
Undergoing workup of possible redo sternotomy and mitral valve replacement through the [facility] system
This will require preprocedure YUE for surgical planning and patient is requesting that this be done while inpatient�we will try to facilitate if the schedule allows
Rest per Dora Eaton
Original Note:
Today's Communication / Plan
-
Increase Lasix to 80 mg IV BID
Check INR in AM
YUE in AM
Call out to her [facility] surgery group
Impression / Plan
-
PCP: Antonieta Clark MD
CDY: Yahaira Evans MD locally and Dr. Pat at [facility] ([phone])
Impression:
Admitted with CHF 10/03/24
Acute on chronic HFpEF
Subtherapeutic INR
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
Hx MARIANELA thrombus with hx spontaneous echo contrast in the left atrium and definite thrombus in the MARIANELA by YUE 08/13/2024
Eliquis transitioned to warfarin for LA smoke by YUE 08/13/24
Paroxysmal atrial fibrillation
s/p PVI 04/2023
HCM, severe concentric LVH, previously on Camzyos dosing changes managed at [facility]
PHTN
s/p RHC at [facility] 12/2023
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
Mild , peak to peak gradient 11 mmHg by cath at [facility] 07/29/24
h/o endocarditis
Hypertension
Hyperlipidemia
COPD
RHC 12/24/2023: Performed at [place], PCWP consistent with severe PHTN, PVR 8 Wood units and mildly depressed assumed [place] cardiac index
R/LHC 07/29/2024: PCWP 17 mmHg, severe PHTN with PAP 42 mmHg, PVR 6.58 Wood units, CI 2.29, severe mitral stenosis with mean gradient 10.05 mmHg and calculated mitral valve area by Gorlin equation 1.04 cm sq, noncritical CAD, LM luminal
irregularities, LAD luminal irregularities, circumflex 50% mid lesion otherwise luminal irregularities, RCA luminal irregularities
YUE 06/07/22: EF 70-75%, severe cLVH, well seated bioprosthetic MV, mild MS, mild , mild AR
Echo 06/23/23: EF 70 to 75%, mild concentric LVH, mid cavitary gradient is 76/29 at rest and 89/35 with Valsalva, bioprosthetic mitral valve with mean gradient 8 mmHg and no MR, moderate peak/mean 67/37 mmHg and ZACHARY 1.3 cm sq, some transvalvular
gradient could be secondary to severe LVH, mild pulmonic regurgitation
Echo 10/08/23: LVOT peak gradient 5 mmHg at rest up to 31 with Valsalva, EF 75%, hyperdynamic LV
Echo 12/01/23: EF 60%, mid cavitary obstruction with LVOT gradient 20 mmHg at rest increased to 27 with Valsalva, normal function of bioprosthetic mitral valve, moderate TR with PAP 88 mmHg
Echo @ [facility] 05/25/2024: EF 75%, LVIS measures 1.5 cm, LVOT peak gradient at rest measures 16 mmHg, with Valsalva up to 51 mmHg, GLS 11.5%, bioprosthetic mitral valve with trace MR with peak/mean gradients 28/11 mmHg, mild with peak/mean gradients
21/11 mmHg, mild to moderate AR, mild TR, estimated PAP 87 mmHg
Echo 06/10/2024: LV small size with severe concentric LVH (interventricular septum 2.3 cm, posterior wall 2 cm), no WMA, EF 65 to 70%, mid cavitary gradient of at least 5 mmHg up to 23 with Valsalva, LVOT gradient at rest is 9 with Valsalva up to 18,
normal RV size and function, moderate TR with PAP 80 to 85 mmHg, compared to echo from 12/01/2023 at [facility] RV is now mildly dilated consistent with PHTN seen on most recent workup and aortic valve now with moderate insufficiency
YUE 07/29/24: [place] study, normal LV size, mildly increased LV wall thickness of mild concentric LVH, EF 60%, mildly decreased RV systolic function with mild dilation, no thrombus present in the left atrial appendage, bioprosthetic mitral valve
prosthesis with moderate mitral valve leaflet calcification and trace MR, moderate mitral stenosis with mean mitral valve gradient 8 mmHg, mild , mild aortic regurgitation
YUE 08/13/24: [facility] study, EF 65%, moderately dilated RV with mild RV hypokinesis, severely dilated LA with evidence of spontaneous echo contrast and definite MARIANELA thrombus, bioprosthetic mitral valve with marked thickening and
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
Plan:
-Patient has had minimal symptomatic improvement since admission. Weight is up 3 lbs in the last 48 hours despite Lasix 40 mg IV BID. Remains on oxygen at 1 L NC and was not wearing supplemental oxygen prior to admission. Increase Lasix to 80 mg IV
BID, patient was taking Lasix 80 mg PO BID prior to admission. Orders placed by me.
-Patient with known bioprosthetic mitral valve stenosis and MPG by cath at [place] 07/29/24 was 10.05. Patient saw the surgeon at [place], [place] on 09/15/24 to discuss TMVR and have a CT scan. She says that she was told that she is not a candidate
for TMVR due to measurements and that she thinks she is going to have surgical MVR. Patient says that she was told that she needs a YUE and was trying to have test performed at [facility], but there was difficulty getting the order. I called patient's
surgeon on 10/05/24 at [phone] and left a message asking for a call back.
-Tele reviewed by me 10/05/24 is Afib. Patient has been in persistent Afib and cannot have CV due to MARIANELA clot and LA smoke during attempted YUE/CV back on 08/25/24.
-Will reassess MARIANELA clot and LA smoke at YUE 10/05/24.
-INR was subtherapeutic on admission and INR was 1.78 on 10/04/24. No INR checked 10/05/24. INRs for the next 3 mornings ordered by me 10/05/24. INR goal is 2-3. INRs managed by cardiology office with draws at [facility].
-Outpatient dose of amiodarone 200 mg daily has been continued for adjunct rate control.
-Outpatient dose of Lopressor increased to 75 mg BID to help with rate control.
-EF 65% by YUE 08/13/24.
-Patient NOT currently taking Camzyos for known HOCM that is managed at [place]. Details are unclear. Will await the call back from [place].
Progress Note - Complaint Investigator
Subjective
Date of Service: October 05, 2024
No palpitations, still SOB
Objective
Labs:
10/05/24 04:32
10/05/24 04:32
Labs
Hgb 15.1 g/dL (12.0-16.0) 10/05/24 04:32
Hct 48.9 % (37.0-47.0) H 10/05/24 04:32
Plt Count 123 10^3/uL (130-400) L 10/05/24 04:32
PT 20.9 Sec (11.4-14.6) H 10/04/24 07:17
INR 1.78 10/04/24 07:17
APTT 154.7 Sec (23.4-35.0) H* 10/05/24 04:32
Sodium 142 mmol/L (135-145) 10/05/24 04:32
Potassium 4.2 mmol/L (3.5-5.1) 10/05/24 04:32
BUN 37 mg/dl (7-17) H 10/05/24 04:32
Creatinine 0.9 mg/dL (0.6-1.0) 10/05/24 04:32
Glucose 129 mg/dl (70-99) H 10/05/24 04:32
Vital Signs and I&O:
Vital Signs
Temp Pulse Resp BP Pulse Ox
98.0 F 82 18 132/69 96
10/05/24 03:01 10/05/24 08:20 10/05/24 07:28 10/05/24 08:20 10/05/24 07:28
Vital Signs
Temp Pulse Resp BP Pulse Ox
98.0 F 82 18 132/69 96
10/05/24 03:01 10/05/24 08:20 10/05/24 07:28 10/05/24 08:20 10/05/24 07:28
Intake & Output
10/03/24 10/04/24 10/05/24 10/06/24
06:59 06:59 06:59 06:59
Intake Total 488 / 488 1854 / 1854
Output Total 250 / 250 2125 / 2125
Balance 238 / 238 -271 / -271
Physical Exam
Physical Exam
GEN: NAD. AAO x3
HEENT: EOMI
LUNGS: 1 L NC. No audible wheeze
CV: Afib on tele.
ABD:ND
EXT: No edema B/L
NEURO: Gross non-focal
SKIN: No rash
[2024-10-05] MEDS: LASIX 40 MG IV (09:28)
[2024-10-05 12:31] LABS: APTT 130.5 Sec (23.4-35.0)
--- NOTE | 2024-10-05 14:20 | CM ---
Diagnostic work up still in progress. Patient had PT today and did well (at/near baseline).
Plan: Case management will continue to follow and assist with discharge planning. Home, will watch for VN needs.
[2024-10-05] MEDS: LASIX 80 MG IV (16:30)
[2024-10-05] MEDS: COUMADIN 2.5 MG PO (17:38)
[2024-10-05 20:44] LABS: APTT 67.9 Sec (23.4-35.0)
[2024-10-06] VITALS (7 sets, daily range): BP systolic 123–145; BP diastolic 59–69; PULSE 87; O2SAT 91; BMI 27.5
[2024-10-06 03:47] LABS: Hematocrit 50.2 % (37.0-47.0); Hemoglobin 15.3 g/dL (12.0-16.0); Mean Corp Hgb Conc. 30.5 g/dL (33.0-37.0); Mean Corpuscular Hgb 29.8 pg (27.0-31.0); Mean Corpuscular Volume 97.7 fL (81.0-99.0); Mean Platelet Volume 9.8 fL (7.4-10.4); Platelet Count 125 10^3/uL (130-400); Red Blood Cell Count 5.14 10^6/uL (4.20-5.40); Red Cell Dist. Width 16.4 % (11.5-14.5); White Blood Cell Count 6.7 10^3/uL (4.8-10.8)
[2024-10-06 03:56] LABS: INR 2.13; PT 23.9 Sec (11.4-14.6)
[2024-10-06 05:00] LABS: Blood Urea Nitrogen 38 mg/dl (7-17); Calcium 9.3 mg/dl (8.4-10.2); Carbon Dioxide 28 mmol/L (22-30); Chloride 105 mmol/L (98-107); Estimated Creatinine Clearance 43 ml/min; Glucose 129 mg/dl (70-99); Magnesium 2.7 mg/dl (1.6-2.3); Phosphorus 4.2 mg/dl (2.5-4.5); Potassium 4.1 mmol/L (3.5-5.1); Sodium 141 mmol/L (135-145); eGFR 58.02
--- NOTE | 2024-10-06 07:04 | W.PN.HOSP.TC ---
Today's Communication/Plan
-
wean O2 as tolerated
diuresis as per cardio
Home Oxygen assessment in AM
therapeutic INR, hep gtt dc, cont warfarin
Assessment / Plan
Assessment / Plan
Physical exam:
General: No acute distress, appears comfortable at this time
HEENT: Normocephalic, Atraumatic and Moist Mucous Membranes
Respiratory: Coarse bilateral crackles in the bases; Negative Wheezes, or Rhonchi
Cardiac: Irregular rate and rhythm and S1/S2, systolic murmur
GI: Soft, Nontender and Nondistended
Musculoskeletal: No Clubbing. Lower ext edema +1. Lt foot cyanotic appearance significantly cool to touch especially in contrast to right foot, no significant tenderness, difficult to appreciate pedal pulse.
Neuro: AOx3 conversant coherent
Psych: Calm
IMPRESSION:
78F HOCM afib atrial thrombus MVR here for acute on chronic HFpEF.
PLAN:
Acute on chronic HFpEF:
IV diuretics Lasix increased from 40 mg to 80 mg IV twice a day as per Cardio d/t lack of wt loss (pt gained wt)
BNP upon admission 13,300
daily weight I/O
Monitor renal function and electrolytes
cont metoprolol
Fluid and Salt restriction
Cardio eval appreciated
YUE appreciated no atrial thrombus
LLE Foot cyanosis
pt reports present/progressive for past [address] abd aorta angio w/ run off appreciated no significant arterial stenosis
REDDY/TBI results appreciated
Vascular eval appreciated discoloration likely d/t venous congestion
Paroxysmal Afib:
Subtherapeutic INR resolved
Continue rate control, Toprol tartrate 75 mg twice a day
Continue antiarrhythmic, amiodarone 200 mg p.o. daily
hep gtt completed with therapeutic INR, cont coumadin
Continue cardiac monitoring
Atrial thrombus:
Continue anticoagulation
Monitor INR closely
Bioprosthetic mitral valve stenosis:
Plan for valve surgery at [place] as outpatient
Hypertension:
Continue home antihypertensive
Hyperlipidemia:
Continue home statins, atorvastatin 20 mg p.o. daily
COPD:
No bronchospasm
Continue home inhalers
No need for systemic steroids
PT/OT appreciated home services vs no needs
DVT prophylaxis:
hep gtt
CODE STATUS:
Full code
I spent a total of 45 minutes with the patient or on the floor. More than 50% of this time involved counseling and coordination of care.
Anticipated Discharge: 24 - 48 hours
Subjective/Interval History
-
Date of Service: October 06, 2024
No acute distress, appears comfortable at this time. Remains oxygen dependent. Overall reports feeling well.
Objective Data
-
Labs:
Laboratory Results
10/05/24 10/06/24 10/06/24
20:25 03:33 03:33
WBC 6.7
Hgb 15.3
Hct 50.2 H
Plt Count 125 L
PT 23.9 H Cancelled
INR 2.13
APTT 67.9 H
Sodium
Potassium
Chloride
Carbon Dioxide
BUN
Creatinine
Glucose
Calcium
10/06/24 10/06/24
03:33 11:15
WBC
Hgb
Hct
Plt Count
PT
INR Cancelled
APTT 86.0 H Pending
Sodium 141
Potassium 4.1
Chloride 105
Carbon Dioxide 28
BUN 38 H
Creatinine 1.0
Glucose 129 H
Calcium 9.3
Vital Signs:
Vital Signs
Temp Pulse Resp BP Pulse Ox
98.0 F 97 18 145/69 98
10/06/24 03:37 10/06/24 03:37 10/06/24 03:37 10/06/24 03:37 10/06/24 03:37
I&O
10/05/24 10/06/24 10/07/24
06:59 06:59 06:59
Intake Total 1854 / 185 389 / 389
Output Total 5 / 5 1725 / 1725
Balance -271 / -271 -1336 / -1336
[2024-10-06] MEDS: ADVAIR HFA 115/21 MCG INHALER 2 PUFF INH ×2 (08:30→19:37)
--- NOTE | 2024-10-06 08:47 | W.PN.CARDCBS ---
Addendum entered and electronically signed by Gaston Perea DO 10/06/24 12:14:
I saw and examined the patient.
The Bi Architect's note was reviewed and I agree with the note.
Comment:
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
left atrial appendage thrombus who presented in acute decompensated heart failure.
Her wt is flat last 24 hrs. IV lasix just increased to 80 mg IV BID.
Follow daily standing weights, electrolytes and renal function
Undergoing workup of possible redo sternotomy and mitral valve replacement vs TMVR through the [facility] system
No thrombus by YUE Oct 06 2024. Significant prosthetic MV stenosis with at least moderate MR.
INR is therapeutic and IV Heparin was stopped.
Persistent AFib, continue Amiodarone for rate control.
Pt is not taking Camzyos and follows at [facility] for HCM.
Pt was appreciative
Original Note:
Today's Communication / Plan
-
[facility] records coming, but sounds like YUE needed to exclude clot and she might still be a candidate for TMVR
Ongoing Lasix 80 mg IV BID
Impression / Plan
-
PCP: Antonieta Clark MD
CDY: Yahaira Evans MD locally and Dr. Pat at [facility] ([phone])
Impression:
Admitted with CHF 10/03/24
Acute on chronic HFpEF
Subtherapeutic INR
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
Hx MARIANELA thrombus with hx spontaneous echo contrast in the left atrium and definite thrombus in the MARIANELA by YUE 08/13/2024
Eliquis transitioned to warfarin for LA smoke by YUE 08/13/24
Paroxysmal atrial fibrillation
s/p PVI 04/2023
HCM, severe concentric LVH, previously on Camzyos dosing changes managed at [facility]
PHTN
s/p RHC at [facility] 12/2023
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
Mild , peak to peak gradient 11 mmHg by cath at [facility] 07/29/24
h/o endocarditis
Hypertension
Hyperlipidemia
COPD
RHC 12/24/2023: Performed at [facility], PCWP consistent with severe PHTN, PVR 8 Wood units and mildly depressed assumed [place] cardiac index
R/LHC 07/29/2024: PCWP 17 mmHg, severe PHTN with PAP 42 mmHg, PVR 6.58 Wood units, CI 2.29, severe mitral stenosis with mean gradient 10.05 mmHg and calculated mitral valve area by Gorlin equation 1.04 cm sq, noncritical CAD, LM luminal
irregularities, LAD luminal irregularities, circumflex 50% mid lesion otherwise luminal irregularities, RCA luminal irregularities
YUE 06/07/22: EF 70-75%, severe cLVH, well seated bioprosthetic MV, mild MS, mild , mild AR
Echo 06/23/23: EF 70 to 75%, mild concentric LVH, mid cavitary gradient is 76/29 at rest and 89/35 with Valsalva, bioprosthetic mitral valve with mean gradient 8 mmHg and no MR, moderate peak/mean 67/37 mmHg and ZACHARY 1.3 cm sq, some transvalvular
gradient could be secondary to severe LVH, mild pulmonic regurgitation
Echo 10/08/23: LVOT peak gradient 5 mmHg at rest up to 31 with Valsalva, EF 75%, hyperdynamic LV
Echo 12/01/23: EF 60%, mid cavitary obstruction with LVOT gradient 20 mmHg at rest increased to 27 with Valsalva, normal function of bioprosthetic mitral valve, moderate TR with PAP 88 mmHg
Echo @ [facility] 05/25/2024: EF 75%, LVIS measures 1.5 cm, LVOT peak gradient at rest measures 16 mmHg, with Valsalva up to 51 mmHg, GLS 11.5%, bioprosthetic mitral valve with trace MR with peak/mean gradients 28/11 mmHg, mild with peak/mean gradients
21/11 mmHg, mild to moderate AR, mild TR, estimated PAP 87 mmHg
Echo 06/10/2024: LV small size with severe concentric LVH (interventricular septum 2.3 cm, posterior wall 2 cm), no WMA, EF 65 to 70%, mid cavitary gradient of at least 5 mmHg up to 23 with Valsalva, LVOT gradient at rest is 9 with Valsalva up to 18,
normal RV size and function, moderate TR with PAP 80 to 85 mmHg, compared to echo from 12/01/2023 at [facility] RV is now mildly dilated consistent with PHTN seen on most recent workup and aortic valve now with moderate insufficiency
YUE 07/29/24: [facility] study, normal LV size, mildly increased LV wall thickness of mild concentric LVH, EF 60%, mildly decreased RV systolic function with mild dilation, no thrombus present in the left atrial appendage, bioprosthetic mitral valve
prosthesis with moderate mitral valve leaflet calcification and trace MR, moderate mitral stenosis with mean mitral valve gradient 8 mmHg, mild , mild aortic regurgitation
YUE 08/13/24: [facility] [place] study, EF 65%, moderately dilated RV with mild RV hypokinesis, severely dilated LA with evidence of spontaneous echo contrast and definite MARIANELA thrombus, bioprosthetic mitral valve with marked thickening and
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
Plan:
-On the phone with various [facility] offices for 22 minutes 10/06/24 to try and get last CT surgery office note and find out what the most current plan is, I finally got connected with an RN at Dr. Rivas's (unsure of spelling) office and they were able
to send me the most recent office note and also talk through the note with me over the phone. At this point patient is still being considered for TMVR which patient did not understand, patient thinks that she was told she is not a candidate for TMVR
due to bad measurements, but it sounds like she is still a candidate so long as no residual clot. Patient with known bioprosthetic mitral valve stenosis and MPG by cath at [facility] 07/29/24 was 10.05. Patient saw the surgeon at [place], [place] on
09/15/24 to discuss TMVR and have a CT scan.
-MARIANELA clot and LA smoke during attempted YUE/CV back on 08/25/24. Repeat YUE 10/06/24 without obvious clot. Will burn images to disc to send with patient and also push/share images via [employer]. I told Dr. Rivas's office that YUE was being
performed 10/06/24 so they know now as well
-Weight unchanged at 150 lbs despite increased dose of Lasix 80 mg IV BID starting 10/05/24 PM. Labs stable as reviewed by me 10/06/24. Cont Lasix 80 mg IV BID.
-Remains on oxygen at 1 L NC and was not on supplemental oxygen prior to admission. Will follow for possible home oxygen needs.
-Tele reviewed by me 10/06/24 is Afib. Patient has been in persistent Afib since 08/2024.
-INR 2.13 on 10/06/24 and Heparin gtt stopped.
-INR was subtherapeutic on admission. INR goal is 2-3. INRs managed by cardiology office with draws at [facility].
-Outpatient dose of amiodarone 200 mg daily has been continued for adjunct rate control.
-Outpatient dose of Lopressor increased to 75 mg BID to help with rate control.
-EF 65% by YUE 08/13/24.
-Patient NOT currently taking Camzyos for known HOCM that is managed at [facility]. Details are unclear.
Progress Note - Patients Transporter
Subjective
Date of Service: October 06, 2024
She is SOB and is frustrated at ongoing supplemental oxygen requirement, no pain
Objective
Labs:
10/06/24 03:33
10/06/24 03:33
Labs
Hgb 15.3 g/dL (12.0-16.0) 10/06/24 03:33
Hct 50.2 % (37.0-47.0) H 10/06/24 03:33
Plt Count 125 10^3/uL (130-400) L 10/06/24 03:33
PT 23.9 Sec (11.4-14.6) H 10/06/24 03:33
PT Cancelled 10/06/24 03:33
INR 2.13 10/06/24 03:33
INR Cancelled 10/06/24 03:33
APTT 86.0 Sec (23.4-35.0) H 10/06/24 03:33
Sodium 141 mmol/L (135-145) 10/06/24 03:33
Potassium 4.1 mmol/L (3.5-5.1) 10/06/24 03:33
BUN 38 mg/dl (7-17) H 10/06/24 03:33
Creatinine 1.0 mg/dL (0.6-1.0) 10/06/24 03:33
Glucose 129 mg/dl (70-99) H 10/06/24 03:33
Vital Signs and I&O:
Vital Signs
Temp Pulse Resp BP Pulse Ox
98.1 F 88 18 130/67 100
10/06/24 07:39 10/06/24 07:39 10/06/24 07:39 10/06/24 07:39 10/06/24 08:34
Vital Signs
Temp Pulse Resp BP Pulse Ox
98.1 F 88 18 130/67 100
10/06/24 07:39 10/06/24 07:39 10/06/24 07:39 10/06/24 07:39 10/06/24 08:34
Intake & Output
10/04/24 10/05/24 10/06/24 10/07/24
06:59 06:59 06:59 06:59
Intake Total 488 / 488 1854 / 1854 389 / 389
Output Total 250 / 250 2125 / 2125 1725 / 1725
Balance 238 / 238 -271 / -271 -1336 / -1336
Physical Exam
Physical Exam
GEN: NAD. AAO x3
HEENT: EOMI
LUNGS: 1 L NC. No audible wheeze
CV: Afib on tele.
EXT: No edema B/L
NEURO: Gross non-focal
SKIN: No rash
--- NOTE | 2024-10-06 09:23 | W.PN.UPDATE ---
Update Note
Progress Note Update
Noninvasive studies reviewed. Bilateral ABIs mildly decreased. TBI's minimally/mildly decreased. Likely no acute ischemic issues. Can follow-up in the office with me for generalized surveillance follow-up in 3 to 6 months.
[2024-10-06] MEDS: LASIX 80 MG IV ×2 (12:05→16:46)
[2024-10-06] MEDS: FLUSH (NSS) 1 FLUSH IV ×2 (12:05→16:46)
[2024-10-06] MEDS: LOPRESSOR 75 MG PO ×2 (12:06→20:39)
[2024-10-06] MEDS: LIPITOR 20 MG PO (12:06)
[2024-10-06] MEDS: PACERONE 200 MG PO (12:07)
--- NOTE | 2024-10-06 12:14 | PTCARENOTE ---
Pt returned to room from labor and delivery registered nurse s/p YUE: accompanied by labor and delivery registered nurse RN. Pt AAO x3, HAHN well, able to ambulate to bed with minimal assistance, no c/o weakness/dizziness. VSS. Placed back on telemetry:A fib. To resume prior diet. Resting
comfortably at present, no c/o. Will continue to monitor.
--- NOTE | 2024-10-06 16:18 | DOWNTIME ---
There was a [employer] Client Wireline Supervisor Downtime on 10/06/2024 from 1230 to 10/06/2024 at 1550. Downtime documentation of patient's care, including medication administrations, has been reconciled in the electronic record per guidelines. Refer to the
patient's paper chart under the miscellaneous tab to see printed paper medication records and downtime forms.
--- NOTE | 2024-10-06 16:19 | DOWNTIME ---
There was a [employer] Client Glued Wood Tester Downtime on 10/06/2024 from 1230 to 10/06/2024 at 1550. Downtime documentation of patient's care, including medication administrations, has been reconciled in the electronic record per guidelines. Refer to the
patient's paper chart under the miscellaneous tab to see printed paper medication records and downtime forms.
--- NOTE | 2024-10-06 16:20 | PTCARENOTE ---
Pt AAO x3, HAHN well; OOB in chair, ambulatory to BR; azalea well, no c/o weakness/dizziness. VSS. Telemetry:A fib. On nc 21 lpm- pulse ox 95%, pt with (+) [place] but denies SOB. Abd large, soft, azalea O well. Voids mod amts clear lt maria isabel urine on
specipan. Resting comfortably at present. Will continue to monitor.
[2024-10-06] MEDS: TYLENOL 650 MG PO ×2 (16:52→20:52)
[2024-10-06] MEDS: COUMADIN 2.5 MG PO (17:34)
[2024-10-07] VITALS (7 sets, daily range): BP systolic 118–150; BP diastolic 56–71; BMI 27.3
[2024-10-07] MEDS: ProAIR HFA INHALER 2 PUFF INH ×2 (00:42→07:14)
[2024-10-07] MEDS: TORADOL 15 MG IV (02:04)
--- NOTE | 2024-10-07 07:14 | W.PN.HOSP.TC ---
Today's Communication/Plan
-
cont diuresis
transfer to [place]
Assessment / Plan
Assessment / Plan
Physical exam:
General: No acute distress, appears comfortable at this time
HEENT: Normocephalic, Atraumatic and Moist Mucous Membranes
Respiratory: Coarse bilateral crackles in the bases; Negative Wheezes, or Rhonchi. Remains oxygen dependent
Cardiac: Irregular rate and rhythm and S1/S2, systolic murmur
GI: Soft, Nontender and Nondistended
Musculoskeletal: No Clubbing. Lower ext edema +1. Left foot discoloration since improved
Neuro: AOx3 conversant coherent
Psych: Calm
IMPRESSION:
78F HOCM afib atrial thrombus MVR here for acute on chronic HFpEF.
PLAN:
Acute on chronic HFpEF:
IV diuretics Lasix increased from 40 mg to 80 mg IV twice a day as per Cardio d/t lack of wt loss (pt gained wt)
BNP upon admission 13,300
daily weight I/O
Monitor renal function and electrolytes
cont metoprolol
Fluid and Salt restriction
10/07 repeat cxr appreciated left mod pleural effusion worse from prior imaging noted as small
YUE appreciated no atrial thrombus
Cardio eval appreciated patient to be transferred to [place] under the care of Dr Hirsch for CT surgery intervention degenerated bioprosthetic mitral valve
LLE Foot cyanosis since improved with diuresis
pt reports present/progressive for past [address] abd aorta angio w/ run off appreciated no significant arterial stenosis
REDDY/TBI results appreciated
Vascular eval appreciated discoloration likely d/t venous congestion
Persistent Afib:
Subtherapeutic INR resolved
Continue rate control, Toprol tartrate 75 mg twice a day
Continue antiarrhythmic, amiodarone 200 mg p.o. daily
hep gtt completed with therapeutic INR, cont coumadin
Continue cardiac monitoring
Atrial thrombus:
Continue anticoagulation
Monitor INR closely
Bioprosthetic mitral valve stenosis:
Plan for valve surgery at [place] as outpatient
Hypertension:
Continue home antihypertensive
Hyperlipidemia:
Continue home statins, atorvastatin 20 mg p.o. daily
COPD:
No bronchospasm
Continue home inhalers
No need for systemic steroids
PT/OT appreciated home services vs no needs
DVT prophylaxis:
hep gtt
CODE STATUS:
Full code
I spent a total of 45 minutes with the patient or on the floor. More than 50% of this time involved counseling and coordination of care.
Anticipated Discharge: Today
Subjective/Interval History
-
Date of Service: October 07, 2024
Objective Data
-
Labs:
Laboratory Results
10/07/24
06:09
WBC Pending
Hgb Pending
Hct Pending
Plt Count Pending
PT Pending
INR Pending
Sodium Pending
Potassium Pending
Chloride Pending
Carbon Dioxide Pending
BUN Pending
Creatinine Pending
Glucose Pending
Calcium Pending
Vital Signs:
Vital Signs
Temp Pulse Resp BP Pulse Ox
97.2 F 79 16 131/65 95
10/07/24 03:31 10/07/24 03:31 10/07/24 03:31 10/07/24 03:31 10/07/24 03:31
I&O
10/06/24 10/07/24 10/08/24
06:59 06:59 06:59
Intake Total 389 / 389 928 / 928
Output Total 1725 / 1725 1250 / 1250
Balance -1336 / -1336 -322 / -322
[2024-10-07] MEDS: ADVAIR HFA 115/21 MCG INHALER 2 PUFF INH ×2 (07:15→19:32)
[2024-10-07 07:17] LABS: INR 2.18; PT 24.7 Sec (11.4-14.6)
[2024-10-07 07:23] LABS: Hematocrit 48.5 % (37.0-47.0); Mean Corp Hgb Conc. 30.9 g/dL (33.0-37.0); Mean Platelet Volume 10.4 fL (7.4-10.4); Platelet Count 126 10^3/uL (130-400); Red Cell Dist. Width 16.2 % (11.5-14.5); White Blood Cell Count 6.2 10^3/uL (4.8-10.8)
[2024-10-07 07:24] LABS: Blood Urea Nitrogen 40 mg/dl (7-17); Calcium 8.9 mg/dl (8.4-10.2); Carbon Dioxide 36 mmol/L (22-30); Chloride 103 mmol/L (98-107); Estimated Creatinine Clearance 42 ml/min; Glucose 122 mg/dl (70-99); Magnesium 2.6 mg/dl (1.6-2.3); Phosphorus 4.1 mg/dl (2.5-4.5); Potassium 4.4 mmol/L (3.5-5.1); Sodium 141 mmol/L (135-145); eGFR 58.02
[2024-10-07] MEDS: LASIX 80 MG IV ×2 (07:28→16:33)
[2024-10-07] MEDS: LOPRESSOR 75 MG PO ×2 (08:59→20:43)
[2024-10-07] MEDS: PACERONE 200 MG PO (09:00)
[2024-10-07] MEDS: LIPITOR 20 MG PO (09:00)
--- NOTE | 2024-10-07 09:58 | W.PN.CARDCBS ---
Addendum entered and electronically signed by Yahaira Evans MD 10/07/24 10:43:
I saw and examined the patient.
The Animal Rides Manager's note was reviewed and I agree with the note.
Comment: General: Well developed, well nourished in NAD.
Heart: Irregularly irregular 4/6 systolic murmur radiating throughout the precordium 2/6 apical rumble
Lungs: Crackles at the bases bilateral
Extremities: No clubbing, cyanosis or edema bilaterally.
Neuro: Grossly nonfocal, awake, alert and oriented x3
Followed by myself as an outpatient. She has a complex history. She continues to have heart failure decompensations given degenerated bioprosthetic mitral valve with mitral valve stenosis and regurgitation. Plan for CT surgery at [facility]
[place] ([facility]).
Continue diuretic. Continue oxygen. Continue support.
Recent transesophageal echocardiogram noted below. She has paroxysmal atrial fibrillation with which currently she is in atrial fibrillation. Prior PVI. Currently on amiodarone. Would benefit from cardioversion prior to discharge. She is on oral
anticoagulation. Will hold tonight's anticoagulation if she does not get transferred to [facility] and transition to heparin in anticipation of invasive procedure. YUE was no left atrial appendage thrombus.
In addition patient has hypertrophic cardiomyopathy for which she follows with Dr. Pat at [facility]. Unclear why Camzyos was stopped. Will need follow-up regarding this.
Appreciate accepting patient in transfer.
Patient is agreeable to transfer have discussed at the bedside in detail.
Original Note:
Today's Communication / Plan
-
Called and talked to [facility] and they are willing to take patient as a transfer today, level 0 status to [facility] 3E via ambulance
Impression / Plan
-
PCP: Antonieta Clark MD
CDY: Yahaira Evans MD locally and Dr. Pat at [place] ([phone])
Impression:
Admitted with CHF 10/03/24
Acute on chronic HFpEF
Subtherapeutic INR on admission
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
Hx MARIANELA thrombus with hx spontaneous echo contrast in the left atrium and definite thrombus in the MARIANELA by YUE 08/13/2024
Eliquis transitioned to warfarin for LA smoke by YUE 08/13/24
No MARIANELA thrombus by YUE at [facility] 10/06/2024
Paroxysmal atrial fibrillation
s/p PVI 04/2023
HCM, severe concentric LVH, previously on Camzyos dosing changes managed at [place]
PHTN
s/p RHC at [place] 12/2023
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
Mild , peak to peak gradient 11 mmHg by cath at [place] 07/29/24
h/o endocarditis
Hypertension
Hyperlipidemia
COPD
RHC 12/24/2023: Performed at [place], PCWP consistent with severe PHTN, PVR 8 Wood units and mildly depressed assumed [place] cardiac index
R/LHC 07/29/2024: PCWP 17 mmHg, severe PHTN with PAP 42 mmHg, PVR 6.58 Wood units, CI 2.29, severe mitral stenosis with mean gradient 10.05 mmHg and calculated mitral valve area by Gorlin equation 1.04 cm sq, noncritical CAD, LM luminal
irregularities, LAD luminal irregularities, circumflex 50% mid lesion otherwise luminal irregularities, RCA luminal irregularities
YUE 06/07/22: EF 70-75%, severe cLVH, well seated bioprosthetic MV, mild MS, mild , mild AR
Echo 06/23/23: EF 70 to 75%, mild concentric LVH, mid cavitary gradient is 76/29 at rest and 89/35 with Valsalva, bioprosthetic mitral valve with mean gradient 8 mmHg and no MR, moderate peak/mean 67/37 mmHg and ZACHARY 1.3 cm sq, some transvalvular
gradient could be secondary to severe LVH, mild pulmonic regurgitation
Echo 10/08/23: LVOT peak gradient 5 mmHg at rest up to 31 with Valsalva, EF 75%, hyperdynamic LV
Echo 12/01/23: EF 60%, mid cavitary obstruction with LVOT gradient 20 mmHg at rest increased to 27 with Valsalva, normal function of bioprosthetic mitral valve, moderate TR with PAP 88 mmHg
Echo @ [place] 05/25/2024: EF 75%, LVIS measures 1.5 cm, LVOT peak gradient at rest measures 16 mmHg, with Valsalva up to 51 mmHg, GLS 11.5%, bioprosthetic mitral valve with trace MR with peak/mean gradients 28/11 mmHg, mild with peak/mean gradients
21/11 mmHg, mild to moderate AR, mild TR, estimated PAP 87 mmHg
Echo 06/10/2024: LV small size with severe concentric LVH (interventricular septum 2.3 cm, posterior wall 2 cm), no WMA, EF 65 to 70%, mid cavitary gradient of at least 5 mmHg up to 23 with Valsalva, LVOT gradient at rest is 9 with Valsalva up to 18,
normal RV size and function, moderate TR with PAP 80 to 85 mmHg, compared to echo from 12/01/2023 at [place] RV is now mildly dilated consistent with PHTN seen on most recent workup and aortic valve now with moderate insufficiency
YUE 07/29/24: [place] study, normal LV size, mildly increased LV wall thickness of mild concentric LVH, EF 60%, mildly decreased RV systolic function with mild dilation, no thrombus present in the left atrial appendage, bioprosthetic mitral valve
prosthesis with moderate mitral valve leaflet calcification and trace MR, moderate mitral stenosis with mean mitral valve gradient 8 mmHg, mild , mild aortic regurgitation
YUE 08/13/24: [facility] [place] study, EF 65%, moderately dilated RV with mild RV hypokinesis, severely dilated LA with evidence of spontaneous echo contrast and definite MARIANELA thrombus, bioprosthetic mitral valve with marked thickening and
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
YUE 09/28/2024: EF 60 to 65%, severe concentric LVH, mildly dilated RV and mildly reduced RV systolic function, some spontaneous echo contrast seen in the left atrial cavity, but no left atrial appendage thrombus, bioprosthetic mitral valve with
significant thickening and calcification, restricted leaflet motion and the valve visually appears to have moderate to severe stenosis, mean mitral valve gradient 11 mmHg, moderate to severe MR with flow coming into the left atrial appendage, mild
to moderate aortic regurgitation, moderate TR
Plan:
-Patient remains on oxygen at 1 L NC and is symptomatic with ambulation, cannot walk to bathroom within room.
-Patient had YUE 10/06/24 and no MARIANELA thrombus was seen. MARIANELA clot and LA smoke during attempted YUE/CV back on 08/25/24. Will burn images to disc to send with patient and also shared images via [employer]. I
-I called [place] transfer center 10/07/24 and talked with patient's surgeon, Dr. Hirsch with help of transfer center coordinator, reviewed current clinical situation including updated YUE findings and patient has been accepted to [facility] as
a level 0 transfer to on 10/07/24. Coordinated with [address] mental health unit lead psychologist to send face sheet to [facility] [place] fax # [phone]. Patient can be transported via ambulance.
-TT to hospitalist attending 10/07/24 regarding transfer
-Patient with known bioprosthetic mitral valve stenosis and MPG by cath at [place] 07/29/24 was 10.05. Patient saw the surgeon at [place], [place] on 09/15/24 to discuss TMVR and have a CT scan.
-Weight down 1 lb overnight and now weighs 149 lbs on 10/07/24. Currently diuresing with Lasix 80 mg IV BID since 10/05/24 PM. Labs stable as reviewed by me 10/07/24. Cont Lasix 80 mg IV BID.
-Remains on oxygen at 1 L NC and was not on supplemental oxygen prior to admission.
-Tele reviewed by ri 10/06/24 is Afib. Patient has been in persistent Afib since 08/2024.
-INR 2.18 on 10/07/24. INR was subtherapeutic on admission. INR goal is 2-3. INRs managed by cardiology office with draws at [facility].
-Outpatient dose of amiodarone 200 mg daily has been continued for adjunct rate control.
-Outpatient dose of Lopressor increased to 75 mg BID to help with rate control.
-EF 65% by YUE 08/13/24.
-Patient NOT currently taking Camzyos for known HOCM that is managed at [place]. Details are unclear.
Progress Note - Health Safety And Environment Manager
Subjective
Date of Service: October 07, 2024
She is SOB walking to the bathroom, she says she cannot go home, she is scared
Objective
Labs:
10/07/24 06:09
10/07/24 06:09
Labs
Hgb 15.0 g/dL (12.0-16.0) 10/07/24 06:09
Hct 48.5 % (37.0-47.0) H 10/07/24 06:09
Plt Count 126 10^3/uL (130-400) L 10/07/24 06:09
PT 24.7 Sec (11.4-14.6) H 10/07/24 06:09
INR 2.18 10/07/24 06:09
APTT Cancelled 10/06/24 11:15
Sodium 141 mmol/L (135-145) 10/07/24 06:09
Potassium 4.4 mmol/L (3.5-5.1) 10/07/24 06:09
BUN 40 mg/dl (7-17) H 10/07/24 06:09
Creatinine 1.0 mg/dL (0.6-1.0) 10/07/24 06:09
Glucose 122 mg/dl (70-99) H 10/07/24 06:09
Vital Signs and I&O:
Vital Signs
Temp Pulse Resp BP Pulse Ox
97.7 F 68 11 141/70 95
10/07/24 08:00 10/07/24 08:59 10/07/24 08:00 10/07/24 08:59 10/07/24 08:00
Vital Signs
Temp Pulse Resp BP Pulse Ox
97.7 F 68 11 141/70 95
10/07/24 08:00 10/07/24 08:59 10/07/24 08:00 10/07/24 08:59 10/07/24 08:00
Intake & Output
10/05/24 10/06/24 10/07/24 10/08/24
06:59 06:59 06:59 06:59
Intake Total 1854 / 1854 389 / 389 928 / 928
Output Total 2125 / 2125 1725 / 1725 1250 / 1250
Balance -271 / -271 -1336 / -1336 -322 / -322
Physical Exam
Physical Exam
GEN: NAD. AAO x3
HEENT: EOMI
LUNGS: 1 L NC. No audible wheeze
CV: Afib on tele.
EXT: No edema B/L
NEURO: Gross non-focal
SKIN: No rash
--- NOTE | 2024-10-07 12:43 | PN.CDI ---
CDI
- -
CDI:
Physician Documentation Request
Admit Date: 10/03/24 13:51
Dear Doctor Kate,
Clinical Indicators:
Patient admitted with acute on chronic HFpEF.
10/06 Cardiology PN, 'Patient has been in persistent Afib since 08/2024.'
PN, 'Paroxysmal Afib'
Due to potentially conflicting documentation, please clarify the type of atrial fibrillation:
Persistent atrial fibrillation - episodes of continuous AF that last more than 7 days and do not self-terminate
Paroxysmal atrial fibrillation - terminates spontaneously or with intervention within 7 days of onset
Other - please specify
Use of terms such as suspected, likely, concern for, or probable (associated with a specific diagnosis that is being evaluated, monitored, or treated as if it exists) are acceptable and can be coded in the inpatient setting, when documented at the
time of discharge.
Thank you,
TRE Hart RN
CDI Specialist
available via tiger text
Please use your independent medical judgment in providing your response.
--- NOTE | 2024-10-07 15:44 | STATUS ---
SITUATION:
BACKGROUND:
ASSESSMENT:
RECOMMENDATION:
--- NOTE | 2024-10-07 15:44 | CM ---
Pt for transfer to [facility] when bed available.
Transport via ambulance.MD completed transfer forms.
Pts MD Dr Pat is a [place].Dr Hirsch is receiving MD at [facility].
Pt for cardiac surgery.
spoke with pt in room is said family is aware of transfer.
Currently on 1 liter NC Pox 98%.
PLAN To [facility] after notified of bed availability
[2024-10-07] MEDS: TYLENOL 650 MG PO (20:44)
--- NOTE | 2024-10-08 00:21 | TRANSFER ---
Report given to SHAD Lozano from [facility]. Patient in no acute distress and has all belongings. Patient transferred via EMS.
--- NOTE | 2024-10-08 05:32 | W.DCSUMMARY ---
Discharge Summary
Discharge Data
Date of Admission: 10/03/24
Date of Discharge: 10/08/24
-
Pending Results: No
Discharge Plan
-
Patient Disposition: [facility]
Condition: Fair
Discharge Orders:
Discharge Patient (As Directed); Ordered 10/07/24
Ordered By: Marcel Love
Discharge Date and Time
Discharge Date/Time: 10/08/24 00:13
Print Language: CYMRAES
== END 2024-10-08 00:13 | disposition short-term general hospital (02) | DRG 314 ==
LOC: 4 EAST ACU 13:51
PROVIDERS: Physician Assistant; Physician Assistant Medical; ADMITTING PHYSICIAN Hospitalist; ATTENDING PHYSICIAN Internal Medicine; CONSULT PHYSICIAN Nuclear Medicine Nuclear Cardiology; EMERGENCY PHYSICIAN Emergency Medicine; OTHER PHYSICIAN Nurse Practitioner
PROC: B24BZZ4 Ultrasonography of Heart with Aorta, Transesophageal (ICD-10-PCS; 2024-10-06)
DX: T82.857A Stenosis of other cardiac prosthetic devices, implants and grafts, initial encounter (principal); I50.33 Acute on chronic diastolic (congestive) heart failure; I42.1 Obstructive hypertrophic cardiomyopathy; I48.19 Other persistent atrial fibrillation; I11.0 Hypertensive heart disease with heart failure; I51.3 Intracardiac thrombosis, not elsewhere classified; Y83.1 Surgical operation with implant of artificial internal device as the cause of abnormal reaction of the patient, or of later complication, without mention of misadventure at the time of the procedure; E78.00 Pure hypercholesterolemia, unspecified; J44.9 Chronic obstructive pulmonary disease, unspecified; Z87.891 Personal history of nicotine dependence; Z88.0 Allergy status to penicillin; Z79.899 Other long term (current) drug therapy; Z79.01 Long term (current) use of anticoagulants; I25.10 Atherosclerotic heart disease of native coronary artery without angina pectoris; Z86.79 Personal history of other diseases of the circulatory system; I27.20 Pulmonary hypertension, unspecified; Z95.3 Presence of xenogenic heart valve; K21.9 Gastro-esophageal reflux disease without esophagitis; R79.1 Abnormal coagulation profile
CPT/HCPCS: 71045; 71046; 75635; 80048; 80053; 83735; 83880; 84100; 85025; 85027; 85610; 85730; 93005; 93312; 93320; 93325; 93922; 93971; 94640; 96374; 97116; 97162; 97166; 97530; 97535; 99285; Q9967

== ENCOUNTER → 2024-12-21 12:31 | Outpatient (REF) | payer MEDICARE, SELFPAY | LOC: SDSPAT 12:31 | PROVIDERS: ATTENDING PHYSICIAN Internal Medicine Cardiovascular Disease; FAMILY PHYSICIAN Family Medicine; OTHER PHYSICIAN Internal Medicine Cardiovascular Disease | DX: I48.0 Paroxysmal atrial fibrillation (principal) | CPT/HCPCS: 93005 ==

== ENCOUNTER 2024-12-23 09:21 | Day surgery (SDC) | payer MEDICARE, SELFPAY ==
[2024-12-21 13:04] VITALS: BMI 28.5
[2024-12-23 10:02] LABS: INR 1.80; PT 21.4 Sec (11.4-14.6)
== END 2024-12-23 10:56 | disposition home or self-care (01) ==
LOC: CATH 09:21
PROVIDERS: ATTENDING PHYSICIAN Internal Medicine Cardiovascular Disease; FAMILY PHYSICIAN Family Medicine; OTHER PHYSICIAN Internal Medicine Cardiovascular Disease
DX: I48.0 Paroxysmal atrial fibrillation (principal); Z53.09 Procedure and treatment not carried out because of other contraindication; I11.0 Hypertensive heart disease with heart failure; I50.9 Heart failure, unspecified; I25.10 Atherosclerotic heart disease of native coronary artery without angina pectoris; E78.5 Hyperlipidemia, unspecified; J44.9 Chronic obstructive pulmonary disease, unspecified; Z95.2 Presence of prosthetic heart valve; Z87.891 Personal history of nicotine dependence; Z79.01 Long term (current) use of anticoagulants
CPT/HCPCS: 85610

== ENCOUNTER 2025-01-02 08:26 | Emergency (ER) | payer MEDICARE, SELFPAY ==
[2025-01-02 08:34] VITALS: BP 100/65
[2025-01-02 09:00] VITALS: BP 112/68
--- NOTE | 2025-01-02 09:01 | ED.GENMED ---
Addendum entered and electronically signed by Clark Conn PA-C 01/08/25 08:56:
Western blot returned with IgG positive Lyme but IgM were negative. Patient had a tick on her at the time of the visit and she was treated with a dose of doxycycline then. She does not describe any typical symptoms of Lyme over the phone. At this
point I held off on treating her but did advise she follow-up with her family doctor
Addendum entered and electronically signed by Alex Yoon PA-C 01/05/25 12:48:
Patient's initial Lyme test came back presumed positive. I contacted the patient to discuss this results. She she is fully asymptomatic. Awaiting Western blot test. She did receive a prophylactic dose while here in the ER of [facility]
Original Note:
History of Present Illness
General
Chief Complaint: Breathing Problem
Source: patient
Exam Limitations: none
Time Seen by Provider: 01/02/25 08:58
Nursing documentation reviewed up to this point in time: agreed with
History of Present Illness
History of Present Illness:
Patient is a 79 y.o female w/ hx atrial fibrillation on warfarin, congestive heart failure, hypertension, COPD who presents to the emergency department for evaluation of left lower leg swelling. She reports frequent bilateral lower extremity
swelling typically resolves by morning however over the past few days she has had worsening swelling in her left lower leg only along with leg cramps. Last night she was applying magnesium cream to ease her leg cramps when she noticed a tender bump
on her left berry which seemed to increase in size by morning prompting visit to the emergency department.
Patient denies any associated chest pain. She denies any worsening shortness of breath from her baseline. She denies any fever, cough, headache, or known rashes. She denies any abdominal pain or distention.
Patient is anticoagulated on warfarin and compliant with medication.
She was scheduled for a cardioversion about 10 days ago for A-fib however it was canceled due to a subtherapeutic INR�now planning for ablation in the near future with cardiology.
Past History
Past History
ED Past Medical History: Arrthythmia (Atrial fibrillation), CHF, COPD, GERD, HTN, Valvular disease (Endocarditis) and Other
ED Past Surgical History: Appendectomy, Cardiac and Other
Social History
Tobacco: Non-smoker
Alcohol: None
Drug: None
Review of Systems
Review of Systems
Allergies reviewed?: Yes
All Other Systems: ROS reviewed and negative except as documented in HPI and ROS
Phy Exam
Physical Exam
Physical Exam:
Vitals: Hypoxic on arrival 90% room air, otherwise vital signs stable.
General: Patient is well appearing, no acute distress. Nontoxic appearing
Skin: Warm and dry. Scattered excoriations on upper back, scalp, extremities.
Head: Normocephalic, atraumatic
Eyes: Sclera nonicteric. EOMs intact. No nystagmus.
Throat: Protecting airway
Neck: Normal ROM, no cervical spine tenderness, no meningismus
Cardiac: Regular rate, irregularly irregular rhythm, no murmurs.
Pulm: Hypoxic�placed on 2 L NC, somewhat decreased breath sounds bilaterally without wheezing or rales.
Abdomen: Abdomen soft and nontender.
Extremities: No evidence of cyanosis or edema. Approximately 1.5 cm tender nodule on berry without any overlying erythema or warmth. No fluctuance or induration.
Neuro: AAOx3. Grossly intact.
Psychiatric: Normal affect.
Scores
Heart Failure Risk
Heart Failure Risk Score: Not Applicable
Course
Orders/Labs/Results
Orders:
Orders
01/02/25 09:11
Electrocardiogram (*1) Urgent
Reason for Study: Shortness of Breath
EKG- Treatment ONCE
01/02/25 09:12
CR Chest - 2 Views Urgent
Comment:
Reason For Exam: hypoxia
01/02/25 09:13
US Legs, Left [US Periph Venous LOWER Ext LT] Urgent
Comment:
Reason For Exam: LLE swelling, tenderness left lateral calf
01/02/25 09:15
Complete Blood Count/With Diff Urgent
NT-proBNP Urgent
Troponin I Urgent
01/02/25 09:16
CPK Isoenzyme Urgent
Comment: ADD ON
Comprehensive Metabolic Panel Urgent
Lyme Progressive Urgent
Magnesium Urgent
Comment: ADD ON
Prothrombin Time Urgent
01/02/25 09:58
Acetaminophen [Tylenol] 650 mg PO NOW STA
01/02/25 11:43
Tulio Wrap Left-Treatment ONCE
Doxycycline [Vibramycin] 200 mg PO NOW STA
Furosemide [Lasix] 40 mg IV NOW STA
01/02/25 11:46
Add On- LAB Urgent
Tests Added?: CK, magnesium
Abnormal Lab Results
01/02/25 01/02/25
09:15 09:16
Hct 49.5 H %
(37.0-47.0)
MCHC 30.9 L g/dL
(33.0-37.0)
RDW 16.3 H %
(11.5-14.5)
Absolute Lymphs (auto) 0.5 L 10^3/uL
(1.2-3.4)
Absolute Monos (auto) 0.7 H 10^3/uL
(0.1-0.6)
Neutrophils % 82.6 H %
(42.2-75.2)
Lymphocytes % 6.9 L %
(20.5-51.1)
PT 29.5 H Sec
(11.4-14.6)
BUN 34 H mg/dl
(7-17)
Glucose 122 H mg/dl
(70-99)
Magnesium 2.6 H mg/dl
(1.6-2.3)
AST 38 H U/L
(14-36)
ALT 36 H U/L
(0-35)
Alkaline Phosphatase 178 H U/L
(38-126)
CK-MB (CK-2) 5.2 H ng/ml
(0.0-3.4)
01/02/25 09:15
01/02/25 09:16
Vital Signs
Initial and Last Documented VS:
Initial Vital Signs
Temp Pulse Resp BP Pulse Ox
97.7 F 85 18 100/65 90
01/02/25 08:34 01/02/25 08:34 01/02/25 08:34 01/02/25 08:34 01/02/25 08:34
Last Documented Vital Signs
Temp Pulse Resp BP Pulse Ox
97.7 F 86 20 128/87 99
01/02/25 08:34 01/02/25 11:50 01/02/25 11:15 01/02/25 11:50 01/02/25 11:15
MDM/Problems Addressed
Differential Diagnosis Includes:
Not limited to: COPD exacerbation, CHF exacerbation, DVT, superficial thrombophlebitis, hematoma, insect bite, cellulitis, etc.
MDM/Problems Addressed:
79-year-old female presenting with worsening left lower extremity swelling and pain over the past few days. Patient hypoxic to 90% on room air on arrival to ED and placed on 2 L. Otherwise she has stable vital signs. Patient denies any sensation
of shortness of breath or chest pain. No recent fever or cough. Patient compliant with Coumadin. Physical exam as above.
Patient seems to have a few several problems upon arrival to ED, 1 being swelling of left lower extremity, second being hypoxia. She is also incidentally found to have a tick on her back which was successfully removed by RN.
In regard to asymmetric left lower leg swelling�will check ultrasound of LLE however do feel DVT less likely as patient is compliant with Coumadin. Will obtain labs, proBNP, troponin, chest x-ray to further evaluate etiology of borderline hypoxia
however patient does appear comfortable. Will plan to prophylactically treat for Lyme with single dose doxycycline as unknown how long tick was embedded. No erythema migrans rash or other symptoms of Lyme disease at this time.
Update: EKG reveals rate controlled atrial fibrillation. Labs significant for mild transaminitis and elevated BNP to 7840. Troponin of 0.030 which appears around patients baseline. CXR shows likely pulmonary edema.
US of LLE without findings of DVT however does note approx 2.0cm mass in subcutaneous tissues of LLE. Clinically - most suspicious for small hematoma given no evidence of infection�do not suspect abscess. It has not been rapidly expanding in ED.
Will advise compression and close monitoring at home.
Lab findings and x-ray most consistent with likely CHF exacerbation. Strongly recommended admission given borderline hypoxia. Patient repeatedly refuses mission is aware of risks associated with discharge home including deterioration of condition,
respiratory distress, etc. We did wean off supplemental oxygen in ED and she has remained in low 90s at rest. She repeatedly states that she is not short of breath. Will give dose of IV Lasix in ED and advised very close cardiology follow-up and
strict return precautions. She expressed verbal understanding that overall recommendation was admission and she will return if she changes her mind or any symptoms worsen.
Chronic conditions affecting care:
Congestive heart failure, COPD, atrial fibrillation on warfarin
Acute Exacerbation and/or Progression of Chronic Illness:
Acute CHF exacerbation
*Radiology
Radiology exam reviewed: radiology read reviewed
*Pulse Oximetry
SaO2: 91
Nasal Cannula flow liters per minute: 2
Oxygen Mode of Delivery: Room air
Patient hypoxic: yes
*EKG
Interpreted by ED Provider?: Yes
EKG Intrepretation Date: 01/02/25
Interpretation: abnormal
Comparison EKG: no changes
Heart Rate: 85
Rate: normal
Rhythm: a-fib
[place]: normal axis
Interval: long QT
QRS Pattern: normal QRS
Ischemia: non-specific ST changes
*Ingot Car Operator Interpretation
Rate: normal
Interpretation: abnormal
Heart Rate: 86
Rhythm: a-fib
*Critical Care Note
Total Time (30-74mins, 75-104mins- exclusive of procedures): Not Applicable
Data Reviewed
Review of Other/Old Records Reveals: Testing ([facility] 10/06/24 LVEF 60-65%, [facility])
ED Attending Note
-
Portions of this chart may have been created with voice recognition software.� Occasional wrong word or��sound alike� substitutions may have occurred due to the inherent limitations of voice recognition software.
Discharge Plan
Departure
Patient Disposition: Home (Routine Discharge)
Date of Disposition: 01/02/25
Time of Disposition: 11:48
Patient with high blood pressure during this ER visit?: No
Condition: Good
Discharge Problem:
Acute exacerbation of chronic heart failure, Nocturnal muscle cramps, Hematoma of left lower leg
Instructions: Nocturnal (Nighttime) Leg Cramps (DC), *DCA Heart Failure Instructions, Hematoma
Prescriptions:
New
gabapentin 300 mg capsule
300 mg PO HS Qty: 10 0RF
No Action
albuterol sulfate [Ventolin HFA] 90 MCG/PUFF HFA aerosol inhaler
2 puff inhalation R TIDPRN PRN (Reason: SOB)
amiodarone [Pacerone] 200 MG tablet
200 mg PO DAILY
atorvastatin [Lipitor] 20 mg Tablet
20 mg PO DAILY
fluticasone propion-salmeterol 113-14 mcg/actuation aerosol powdr breath activated
2 inh INHALATION R BID
acetaminophen [Tylenol] 325 mg Tablet
650 mg PO Q4HPRN PRN (Reason: MILD PAIN)
ascorbic acid (vitamin C) [Vitamin C] 500 mg Tablet
500 mg PO DAILY
furosemide 80 mg Tablet
80 mg PO BID@0800,1600 Qty: 60 0RF
metoprolol tartrate 25 mg Tablet
75 mg PO BID Qty: 180 0RF
warfarin [Jantoven] 2 mg tablet
2.5 mg PO QPM
Camzyos 5 mg Capsule
5 mg PO DAILY
magnesium Tablet
1 tab PO DAILY
Rx Instructions:
patient believes its 500 mg daily but no certain of dose
potassium
1 tab PO DAILY
Rx Instructions:
Pt believes its 99 mg but unsure of dosage; just started recently
Referrals:
Yahaira Evans MD [Active, Cardiology] - Call in 1-3 days for appt
Antonieta Clark MD [Family Provider, Family Practice]
Activity Restrictions/Additional Instructions:
RETURN TO THE EMERGENCY DEPARTMENT WITH ANY FEVER, SHORTNESS OF BREATH/DIFFICULTY BREATHING, WORSENING LEG SWELLING, REDNESS OR INCREASING SIZE OF NODULE ON LEFT LEG, CHEST PAIN, WORSENING CURRENT SYMPTOMS, OR ANY OTHER CONCERN
- As discussed�you were seen in the emergency department today with concern of pain in your left leg. There was no evidence of a blood clot and I ultimately suspect a hematoma. You can wrap an Tulio bandage and monitor closely for rapid increase in
size or signs of infection.
- Your chest x-ray showed evidence of fluid buildup in the lungs likely from your CHF. Admission to the hospital is recommended. You were given a dose of IV Lasix in the emergency department. Contact your health management consultant tomorrow for follow-up.
- Your LFTs were elevated, as well. Please have these repeated with your primary care to ensure trending down
- You were given a single dose of doxycycline for prophylactic treatment of Lyme disease as you are found to have a tick on your back.
- A prescription for gabapentin has been sent to your pharmacy which you can take at bedtime to help with muscle cramps. Please stay well-hydrated and continue to stretch.
Monitor your symptoms closely and return to the emergency department with any acute worsening/new symptoms or any other concerns
Interventions
Interventions:
*Risk Screen - Suicide Last Done: 01/02/25 08:34
*General Assessment Last Done: 01/02/25 08:34
*Neglect/Abuse Screening Last Done: 01/02/25 08:34
*ED- Fall Risk Assessment Last Done: 01/02/25 10:27
*ED COVID-19 Vaccine History Last Done: 01/02/25 08:55
*Nursing Disposition Last Done: 01/02/25 12:26
ED- Cardiac Assessment Last Done: 01/02/25 08:55
ED-Musculoskeletal Assessment Last Done: 01/02/25 08:58
ED- Pulmonary Assessment Last Done: 01/02/25 08:55
Discharge Date and Time
Discharge Date/Time: 01/02/25 12:26
Print Language: IRISH
[2025-01-02 09:30] LABS: Hematocrit 49.5 % (37.0-47.0); Hemoglobin 15.3 g/dL (12.0-16.0); Mean Corp Hgb Conc. 30.9 g/dL (33.0-37.0); Mean Corpuscular Volume 92.5 fL (81.0-99.0); Nucleated Red Blood Cells % 0 %; Platelet Count 185 10^3/uL (130-400); Red Cell Dist. Width 16.3 % (11.5-14.5)
[2025-01-02 09:31] VITALS: BP 138/73
[2025-01-02 09:42] LABS: INR 2.80; PT 29.5 Sec (11.4-14.6)
[2025-01-02 09:45] LABS: ALT (SGPT) 36 U/L (0-35); AST (SGOT) 38 U/L (14-36); Albumin 4.7 g/dl (3.5-5.0); Alkaline Phosphatase 178 U/L (38-126); Blood Urea Nitrogen 34 mg/dl (7-17); Calcium 9.5 mg/dl (8.4-10.2); Carbon Dioxide 25 mmol/L (22-30); Chloride 103 mmol/L (98-107); Glucose 122 mg/dl (70-99); Potassium 4.4 mmol/L (3.5-5.1); Sodium 140 mmol/L (135-145); Total Protein 7.7 g/dl (6.3-8.2); eGFR > 60.00
[2025-01-02 09:55] LABS: Troponin I 0.030 ng/ml
[2025-01-02] MEDS: TYLENOL 650 MG PO (10:03)
[2025-01-02 10:34] VITALS: BP 128/87
[2025-01-02] MEDS: VIBRAMYCIN 200 MG PO (11:50)
[2025-01-02] MEDS: LASIX 40 MG IV (11:50)
[2025-01-02 12:22] LABS: Magnesium 2.6 mg/dl (1.6-2.3)
[2025-01-02 12:45] LABS: CKMB 5.2 ng/ml (0.0-3.4)
[2025-01-04 13:53] LABS: Lyme Antibody Screen, EIA Presump. Positive (Negative)
[2025-01-07 16:43] LABS: Lyme Ab Western Blot IgG Positive (Negative); Lyme Ab Western Blot IgM Negative (Negative)
== END 2025-01-02 12:26 | disposition home or self-care (01) ==
LOC: EMR 08:26
PROVIDERS: Physician Assistant; EMERGENCY PHYSICIAN Emergency Medicine; FAMILY PHYSICIAN Family Medicine
DX: S80.12XA Contusion of left lower leg, initial encounter (principal); R25.2 Cramp and spasm; R06.02 Shortness of breath; M79.89 Other specified soft tissue disorders; M79.605 Pain in left leg; R22.42 Localized swelling, mass and lump, left lower limb; X58.XXXA Exposure to other specified factors, initial encounter; I11.0 Hypertensive heart disease with heart failure; I50.9 Heart failure, unspecified; I48.91 Unspecified atrial fibrillation; J44.9 Chronic obstructive pulmonary disease, unspecified; K21.9 Gastro-esophageal reflux disease without esophagitis; M19.90 Unspecified osteoarthritis, unspecified site; I42.9 Cardiomyopathy, unspecified; Z79.01 Long term (current) use of anticoagulants; Z95.2 Presence of prosthetic heart valve; Z87.891 Personal history of nicotine dependence; Z85.828 Personal history of other malignant neoplasm of skin
CPT/HCPCS: 71046; 80053; 82550; 82553; 83735; 83880; 84484; 85025; 85610; 86617; 86618; 93005; 93971; 96374; 99284

== ENCOUNTER 2025-01-20 06:37 | Day surgery (SDC) | payer MEDICARE, SELFPAY ==
[2025-01-20 08:09] LABS: INR 3.29; PT 33.8 Sec (11.4-14.6)
== END 2025-01-20 10:45 | disposition home or self-care (01) ==
LOC: CATH 06:37
PROVIDERS: ATTENDING PHYSICIAN Internal Medicine Cardiovascular Disease; FAMILY PHYSICIAN Family Medicine; OTHER PHYSICIAN Internal Medicine Cardiovascular Disease
DX: I48.0 Paroxysmal atrial fibrillation (principal); I08.3 Combined rheumatic disorders of mitral, aortic and tricuspid valves; I70.0 Atherosclerosis of aorta; I50.32 Chronic diastolic (congestive) heart failure; I11.0 Hypertensive heart disease with heart failure; I25.10 Atherosclerotic heart disease of native coronary artery without angina pectoris; I42.2 Other hypertrophic cardiomyopathy; I27.20 Pulmonary hypertension, unspecified; Z87.891 Personal history of nicotine dependence
CPT/HCPCS: 93312; 93320; 93325; 85610

== ENCOUNTER 2025-01-24 07:48 | Emergency (ER) | payer MEDICARE, SELFPAY ==
[2025-01-24 07:50] VITALS: BP 124/69
[2025-01-24 08:22] VITALS: BMI 28.4
--- NOTE | 2025-01-24 09:44 | ED.GENMED ---
History of Present Illness
<WHITLEY Fontenot - Last Filed: 01/24/25 14:02>
General
Chief Complaint: Musculo-Skeletal Complaint
Source: patient
Exam Limitations: none
Time Seen by Provider: 01/24/25 08:05
Nursing documentation reviewed up to this point in time: agreed with
History of Present Illness
History of Present Illness:
Patient is a 79-year-old female with past medical history of CHF, bioprosthetic valve replacement hypertrophic cardiomyopathy, heart failure CAD COPD presents to the ER for pain to left lower leg. She reports she has had cramps to her lower legs
bilaterally for the past several months but getting increasingly worse. She was here a month ago and had ultrasound diagnosed with a hematoma. She was given gabapentin which did help her symptoms.
She reports when she was seen here previous for pain it was more of an intermittent pain but now it is constant keeping her up all night. Pain is down her left leg.
She denies any swelling. No prior history of DVT PE. thinking it was electrolytes she has tried taking extra potassium magnesium melatonin to sleep however nothing has relieved her symptoms
She denies any fever chills or shortness of breath.
She is on Coumadin has not skipped a dose
Past History
<WHITLEY Fontenot - Last Filed: 01/24/25 14:02>
Past History
ED Past Medical History: Arrthythmia (Atrial fibrillation), CHF, COPD, GERD, HTN, Valvular disease (Endocarditis) and Other
ED Past Surgical History: Appendectomy, Cardiac and Other
Social History
Tobacco: Non-smoker
Alcohol: None
Drug: None
Phy Exam
<WHITLEY Fontenot - Last Filed: 01/24/25 14:02>
General Physical Exam
General Presentation: no apparent distress
General age: appears stated age
General Skin: warm and dry
General Habitus: normal
General Mental: alert
General Hydration: appears well hydrated
Neurological Exam
Neurological Exam: alert and oriented x3
Musculoskeletal Exam
Musculoskeletal Exam: full ROM and other (Left lower extremities positive pulses mild swelling to dorsal foot ankle and lower leg very minimal erythema)
Skin Exam
Skin Exam: normal color and warm/dry
Course
<WHITLEY Fontenot - Last Filed: 01/24/25 14:02>
Orders/Labs/Results
Orders:
Orders
01/24/25 09:52
Venous Doppler Lwr Ext Left [US Periph Venous LOWER Ext LT] Urgent
Comment:
Reason For Exam: pain/swelling
01/24/25 10:06
Complete Blood Count/With Diff Urgent
Comprehensive Metabolic Panel Urgent
PTT Urgent
Prothrombin Time Urgent
01/24/25 13:25
Potassium Chloride [KCl] 40 meq PO NOW STA
Abnormal Lab Results
01/24/25
10:06
RBC 5.58 H 10^6/uL
(4.20-5.40)
Hct 50.6 H %
(37.0-47.0)
MCHC 30.0 L g/dL
(33.0-37.0)
RDW 16.6 H %
(11.5-14.5)
Absolute Lymphs (auto) 0.5 L 10^3/uL
(1.2-3.4)
Neutrophils % 77.9 H %
(42.2-75.2)
Lymphocytes % 9.6 L %
(20.5-51.1)
Monocytes % 10.7 H %
(1.7-9.3)
PT 31.5 H Sec
(11.4-14.6)
APTT 43.3 H Sec
(23.4-35.0)
Potassium 3.3 L mmol/L
(3.5-5.1)
BUN 32 H mg/dl
(7-17)
AST 38 H U/L
(14-36)
Alkaline Phosphatase 165 H U/L
(38-126)
01/24/25 10:06
01/24/25 10:06
Vital Signs
Initial and Last Documented VS:
Initial Vital Signs
Temp Resp
97.7 F 16
01/24/25 07:49 01/24/25 07:49
Last Documented Vital Signs
Temp Pulse Resp BP Pulse Ox
97.7 F 78 16 152/57 92
01/24/25 07:49 01/24/25 13:08 01/24/25 13:08 01/24/25 13:08 01/24/25 13:08
<Shaggy Rubin, DO - Last Filed: 01/24/25 13:21>
Orders/Labs/Results
Orders:
Orders
01/24/25 09:52
Venous Doppler Lwr Ext Left [US Periph Venous LOWER Ext LT] Urgent
Comment:
Reason For Exam: pain/swelling
01/24/25 10:06
Complete Blood Count/With Diff Urgent
Comprehensive Metabolic Panel Urgent
PTT Urgent
Prothrombin Time Urgent
01/24/25 13:25
Potassium Chloride [KCl] 40 meq PO NOW STA
Abnormal Lab Results
01/24/25
10:06
RBC 5.58 H 10^6/uL
(4.20-5.40)
Hct 50.6 H %
(37.0-47.0)
MCHC 30.0 L g/dL
(33.0-37.0)
RDW 16.6 H %
(11.5-14.5)
Absolute Lymphs (auto) 0.5 L 10^3/uL
(1.2-3.4)
Neutrophils % 77.9 H %
(42.2-75.2)
Lymphocytes % 9.6 L %
(20.5-51.1)
Monocytes % 10.7 H %
(1.7-9.3)
PT 31.5 H Sec
(11.4-14.6)
APTT 43.3 H Sec
(23.4-35.0)
Potassium 3.3 L mmol/L
(3.5-5.1)
BUN 32 H mg/dl
(7-17)
AST 38 H U/L
(14-36)
Alkaline Phosphatase 165 H U/L
(38-126)
01/24/25 10:06
01/24/25 10:06
Vital Signs
Initial and Last Documented VS:
Initial Vital Signs
Temp Resp
97.7 F 16
01/24/25 07:49 01/24/25 07:49
Last Documented Vital Signs
Temp Pulse Resp BP Pulse Ox
97.7 F 78 16 152/57 92
01/24/25 07:49 01/24/25 13:08 01/24/25 13:08 01/24/25 13:08 01/24/25 13:08
<WHITLEY Fontenot - Last Filed: 01/24/25 14:02>
MDM/Problems Addressed
Differential Diagnosis Includes:
Not limited to muscle/bone pain less likely DVT, electrolyte abnormality radiculopathy
MDM/Problems Addressed:
As documented patient is a 79-year-old female who complains of pain to her left leg. She has had this intermittently for the past several months seen here in December for that. At that time she was sent on gabapentin which did relieve her symptoms.
Patient reports symptoms were intermittent now they are more consistent because of the persistent pain which is keeping her up at night she presented to the ER. There is no evidence of DVT on exam and ultrasound was negative she has not missed
Coumadin INR is 3.06.
No evidence of infection on exam and she is afebrile with normal white count.
Pt was eval by DR Rubin . will write Gabapentin as this helped in the past and patient was also given a dose of Cater as her potassium was minimally low. Will have her follow-up with her family doctor for lab recheck and reevaluation of
symptoms
<WHITLEY Fontenot - Last Filed: 01/24/25 14:02>
*Radiology
Radiology exam reviewed: radiology read reviewed
*Pulse Oximetry
SaO2: 93
Oxygen Mode of Delivery: Room air
Patient hypoxic: no
*Critical Care Note
Total Time (30-74mins, 75-104mins- exclusive of procedures): Not Applicable
ED Attending Note
<WHITLEY Fontenot - Last Filed: 01/24/25 14:02>
-
Portions of this chart may have been created with voice recognition software.� Occasional wrong word or��sound alike� substitutions may have occurred due to the inherent limitations of voice recognition software.
<Shaggy Rubin DO - Last Filed: 01/24/25 13:21>
ED Attending Note
Patient seen and examined by attending physician: Yes
I performed the substantive portion of visit, reviewed & personally made and approve the management plan that is documented in note by myself or BALTAZAR.: Yes
ED Attending Note:
I evaluated patient at bedside. Although there is some mild warmth and erythema to the anterior aspect of the left ankle, there is no clear evidence for infection. There is no warmth nor significant tenderness. Her INR is 3.1 and the ultrasound
shows no sign of DVT. Will resume gabapentin as this has helped significantly in the past. White blood cell count normal.
Discharge Plan
Departure
Patient Disposition: Home (Routine Discharge)
Date of Disposition: 01/24/25
Time of Disposition: 13:24
Patient with high blood pressure during this ER visit?: Yes
Condition: Fair
Covid-19: Not Applicable
Discharge Problem:
Leg cramps
Instructions: Muscle and Bone Pain (DC), BLOOD PRESSURE
Prescriptions:
New
gabapentin 300 mg capsule
300 mg PO BID Qty: 20 0RF
No Action
albuterol sulfate [Ventolin HFA] 90 MCG/PUFF HFA aerosol inhaler
2 puff inhalation R TIDPRN PRN (Reason: SOB)
amiodarone [Pacerone] 200 MG tablet
200 mg PO DAILY
atorvastatin [Lipitor] 20 mg Tablet
20 mg PO DAILY
fluticasone propion-salmeterol 113-14 mcg/actuation aerosol powdr breath activated
2 inh INHALATION R BID
acetaminophen [Tylenol] 325 mg Tablet
650 mg PO Q4HPRN PRN (Reason: MILD PAIN)
ascorbic acid (vitamin C) [Vitamin C] 500 mg Tablet
1,000 mg PO DAILY
warfarin [Jantoven] 2 mg tablet
1 mg PO QPM
Camzyos 5 mg Capsule
5 mg PO DAILY
aspirin [Aspir-Low] 81 mg Tablet,Delayed Release (Dr/Ec)
81 mg PO DAILY
furosemide 20 mg Tablet
60 mg PO BID
warfarin 1 mg Tablet
1.5 mg PO DAILY
metoprolol tartrate 25 mg tablet
25 mg PO BID
Referrals:
UNKNOWN - PT DOES,NOT KNOW [Family Provider]
Activity Restrictions/Additional Instructions:
As discussed a prescription for gabapentin was sent to your pharmacy.
please take as directed. Please closely follow-up with your family doctor for continued evaluation of the leg cramps.
In addition your potassium was mildly low at 3.3 and you were given 1 dose of oral potassium. Please increase foods high in potassium such as orange juice green leafy vegetables potatoes bananas. Follow-up closely with your family doctor for this
and have this level rechecked. Return if any worsening of symptoms.
Your ultrasound was negative for blood clot and your INR was 3.06
Interventions
Interventions:
*Risk Screen - Suicide Last Done: 01/24/25 07:51
*General Assessment Last Done: 01/24/25 08:22
*Neglect/Abuse Screening Last Done: 01/24/25 08:22
*ED- Fall Risk Assessment Last Done: 01/24/25 08:22
*ED COVID-19 Vaccine History Last Done: 01/24/25 08:22
ED-Musculoskeletal Assessment Last Done: 01/24/25 08:34
Discharge Date and Time
Print Language: DANISH
[2025-01-24 10:31] LABS: INR 3.06; PT 31.5 Sec (11.4-14.6)
[2025-01-24 10:32] LABS: APTT 43.3 Sec (23.4-35.0)
[2025-01-24 10:35] LABS: ALT (SGPT) 32 U/L (0-35); AST (SGOT) 38 U/L (14-36); Albumin 4.2 g/dl (3.5-5.0); Alkaline Phosphatase 165 U/L (38-126); Blood Urea Nitrogen 32 mg/dl (7-17); Calcium 9.1 mg/dl (8.4-10.2); Carbon Dioxide 28 mmol/L (22-30); Chloride 106 mmol/L (98-107); Estimated Creatinine Clearance 51 ml/min; Glucose 88 mg/dl (70-99); Potassium 3.3 mmol/L (3.5-5.1); Sodium 141 mmol/L (135-145); Total Protein 7.2 g/dl (6.3-8.2); eGFR > 60.00
[2025-01-24 10:53] LABS: Hematocrit 50.6 % (37.0-47.0); Hemoglobin 15.2 g/dL (12.0-16.0); Mean Corp Hgb Conc. 30.0 g/dL (33.0-37.0); Mean Corpuscular Volume 90.7 fL (81.0-99.0); Nucleated Red Blood Cells % 0 %; Platelet Count 146 10^3/uL (130-400); Red Cell Dist. Width 16.6 % (11.5-14.5)
[2025-01-24 13:08] VITALS: BP 152/57
[2025-01-24] MEDS: KCL 40 MEQ PO (13:56)
[2025-01-24 14:00] VITALS: BP 137/71
== END 2025-01-24 14:27 | disposition home or self-care (01) ==
LOC: EMR 07:48
PROVIDERS: Nurse Practitioner; EMERGENCY PHYSICIAN Emergency Medicine
DX: R25.2 Cramp and spasm (principal); M79.662 Pain in left lower leg; R22.42 Localized swelling, mass and lump, left lower limb; I11.0 Hypertensive heart disease with heart failure; I50.9 Heart failure, unspecified; I25.10 Atherosclerotic heart disease of native coronary artery without angina pectoris; I42.2 Other hypertrophic cardiomyopathy; I48.91 Unspecified atrial fibrillation; J44.9 Chronic obstructive pulmonary disease, unspecified; Z79.01 Long term (current) use of anticoagulants; Z90.49 Acquired absence of other specified parts of digestive tract; Z95.2 Presence of prosthetic heart valve
CPT/HCPCS: 99284; 80053; 85025; 85610; 85730; 93971

== ENCOUNTER 2025-02-22 15:41 | Inpatient (IN) | payer MEDICARE, SELFPAY ==
[2025-02-22] VITALS (10 sets, daily range): BP systolic 109–151; BP diastolic 52–106; BMI 30.7
[2025-02-22 12:08] LABS: Hematocrit 46.9 % (37.0-47.0); Hemoglobin 14.1 g/dL (12.0-16.0); Mean Corp Hgb Conc. 30.1 g/dL (33.0-37.0); Mean Corpuscular Volume 90.2 fL (81.0-99.0); Nucleated Red Blood Cells % 0 %; Platelet Count 134 10^3/uL (130-400); Red Cell Dist. Width 17.2 % (11.5-14.5)
[2025-02-22 12:21] LABS: INR 2.89; PT 30.2 Sec (11.4-14.6)
[2025-02-22 12:31] LABS: ALT (SGPT) 41 U/L (0-35); AST (SGOT) 50 U/L (14-36); Albumin 4.1 g/dl (3.5-5.0); Alkaline Phosphatase 221 U/L (38-126); Blood Urea Nitrogen 49 mg/dl (7-17); Calcium 8.8 mg/dl (8.4-10.2); Carbon Dioxide 28 mmol/L (22-30); Chloride 103 mmol/L (98-107); Estimated Creatinine Clearance 30 ml/min; Glucose 122 mg/dl (70-99); Potassium 3.6 mmol/L (3.5-5.1); Sodium 140 mmol/L (135-145); Total Protein 6.8 g/dl (6.3-8.2); eGFR 38.51
--- NOTE | 2025-02-22 12:44 | ED.GENMED ---
History of Present Illness
General
Chief Complaint: Cardiac Symptoms
Source: patient
Exam Limitations: none
Time Seen by Provider: 02/22/25 12:31
History of Present Illness
History of Present Illness:
79-year-old female with history of A-fib, hypertrophic cardiomyopathy, CHF on Lasix and Camzyos. Recent dose of Camzyos was doubled from 5 mg to 10 mg. She presents today with increased leg swelling, shortness of breath and fatigue. She spoke
with cardiology office over the phone and they sent her in for evaluation. She denies chest pain. She was hypoxic on triage and is currently on 2 L of nasal oxygen. She states in the recent past she has gained about 4 to 5 kg.
Past History
Past History
ED Past Medical History: Arrthythmia (Atrial fibrillation), CHF, COPD, GERD, HTN, Valvular disease (Endocarditis) and Other
ED Past Surgical History: Appendectomy, Cardiac and Other
Social History
Tobacco: Non-smoker
Alcohol: None
Drug: None
Phy Exam
Physical Exam
Physical Exam:
General: Well-appearing female with increased work of breathing
HEENT: Normal cephalic atraumatic
Heart: Regular rate and rhythm
Lungs: Clear no wheeze or obvious Rales
Abdomen is soft nontender
Extremities: Pitting edema bilateral lower extremities no sign of
Skin is warm no rash
Course
Orders/Labs/Results
Orders:
Orders
02/22/25 11:37
Electrocardiogram (*1) Urgent
Reason for Study: Shortness of Breath
EKG- Treatment ONCE
02/22/25 12:00
CBC/With Diff [Complete Blood Count/With Diff] Urgent
CMP [Comprehensive Metabolic Panel] Urgent
INR [Prothrombin Time] Urgent
Pro-BNP [NT-proBNP] Urgent
02/22/25 12:04
CR Chest - 2 Views Urgent
Comment:
Reason For Exam: sob
02/22/25 14:15
Furosemide [Lasix] 40 mg IV NOW STA
Abnormal Lab Results
02/22/25
12:00
MCHC 30.1 L g/dL
(33.0-37.0)
RDW 17.2 H %
(11.5-14.5)
Absolute Lymphs (auto) 0.5 L 10^3/uL
(1.2-3.4)
Absolute Monos (auto) 0.8 H 10^3/uL
(0.1-0.6)
Neutrophils % 77.6 H %
(42.2-75.2)
Lymphocytes % 7.8 L %
(20.5-51.1)
Monocytes % 13.3 H %
(1.7-9.3)
PT 30.2 H Sec
(11.4-14.6)
BUN 49 H mg/dl
(7-17)
Creatinine 1.4 H mg/dL
(0.6-1.0)
Glucose 122 H mg/dl
(70-99)
AST 50 H U/L
(14-36)
ALT 41 H U/L
(0-35)
Alkaline Phosphatase 221 H U/L
(38-126)
02/22/25 12:00
02/22/25 12:00
Vital Signs
Initial and Last Documented VS:
Initial Vital Signs
Temp Pulse Resp BP Pulse Ox
98.3 F 89 18 109/61 88
02/22/25 11:37 02/22/25 11:37 02/22/25 11:37 02/22/25 11:37 02/22/25 11:37
Last Documented Vital Signs
Temp Pulse Resp BP Pulse Ox
98.3 F 81 19 133/68 96
02/22/25 11:37 02/22/25 14:00 02/22/25 14:00 02/22/25 14:00 02/22/25 14:00
MDM/Problems Addressed
Differential Diagnosis Includes:
Patient with shortness of breath and edema and weight gain. Consider heart failure exacerbation versus averse effect Camzyos versus pneumonia. Chest x-ray pending. EKG shows atrial fibrillation. INR is 2.9. BNP is elevated at 7090.
*Pulse Oximetry
SaO2: 98
Nasal Cannula flow liters per minute: 2
Oxygen Mode of Delivery: Room air
Patient hypoxic: yes
*Critical Care Note
Total Time (30-74mins, 75-104mins- exclusive of procedures): Not Applicable
Update Note
Update Note:
Chest x-ray shows mild edema and cardiomegaly. BNP elevated weight is up from last visit. Suspect heart failure exacerbation. Lasix IV ordered. Admitted to hospitalist and notified cardiology
ED Attending Note
-
Portions of this chart may have been created with voice recognition software.� Occasional wrong word or��sound alike� substitutions may have occurred due to the inherent limitations of voice recognition software.
Discharge Plan
Departure
Patient Disposition: Admit
Date of Disposition: 02/22/25
Time of Disposition: 14:15
Presentation/result/management discussed w/ accepting MD/DO: Hospitalist
Discharge Problem:
CHF (congestive heart failure)
Prescriptions:
No Action
albuterol sulfate [Ventolin HFA] 90 MCG/PUFF HFA aerosol inhaler
2 puff inhalation R TIDPRN PRN (Reason: SOB)
amiodarone [Pacerone] 200 MG tablet
200 mg PO DAILY
atorvastatin [Lipitor] 20 mg Tablet
20 mg PO DAILY
fluticasone propion-salmeterol 113-14 mcg/actuation aerosol powdr breath activated
2 inh INHALATION R BID
acetaminophen [Tylenol] 325 mg Tablet
650 mg PO Q4HPRN PRN (Reason: MILD PAIN)
ascorbic acid (vitamin C) [Vitamin C] 500 mg Tablet
1,000 mg PO DAILY
warfarin [Jantoven] 2 mg tablet
1 mg PO QPM
Camzyos 5 mg Capsule
5 mg PO DAILY
aspirin [Aspir-Low] 81 mg Tablet,Delayed Release (Dr/Ec)
81 mg PO DAILY
furosemide 20 mg Tablet
60 mg PO BID
warfarin 1 mg Tablet
1.5 mg PO DAILY
metoprolol tartrate 25 mg tablet
25 mg PO BID
gabapentin 300 mg capsule
300 mg PO BID Qty: 20 0RF
Referrals:
UNKNOWN - PT DOES,NOT KNOW [Family Provider]
Interventions
Interventions:
*Risk Screen - Suicide Last Done: 02/22/25 11:37
*General Assessment Last Done: 02/22/25 11:37
*Neglect/Abuse Screening Last Done: 02/22/25 12:25
*ED- Fall Risk Assessment Last Done: 02/22/25 12:25
*ED COVID-19 Vaccine History Last Done: 02/22/25 12:25
*ED Influenza Vaccine History Last Done: 02/22/25 12:25
ED- Pulmonary Assessment Last Done: 02/22/25 12:25
ED- Cardiac Assessment Last Done: 02/22/25 12:25
Discharge Date and Time
Print Language: BENGALI
--- NOTE | 2025-02-22 14:20 | HPS.HSE ---
Addendum entered and electronically signed by Grace Daniel MD, Resident 02/22/25 15:58:
QTc prolongation-
Repeat EKG in the a.m. to monitor QTc.
Original Note:
Family Physician
-
Family Physician: Antonieta Clark MD
Chief Complaint
-
SOB, fatigue and weight gain
History of Present Illness
79-year-old female with history of paroxysmal atrial fibrillation, HOCM with left ventricular outflow tract obstruction on Camzyos, history of endocarditis in 2015, s/p mechanical mitral valve, prosthetic mitral stenosis, history of left atrial
clot, nonobstructive CAD currently medically managed, aortic stenosis, hypertension, hyperlipidemia, COPD, GERD, chronic left knee pain, presents to the hospital for evaluation of shortness of breath and swelling in the legs. Patient states that
she has been experiencing dyspnea on exertion and fatigue for about 1 month that has been progressively worsening over the last 1 month. 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
worsening difficulty. In the a.m., she felt extremely weak fatigued, had shortness of breath with a sensation of dizziness and near syncope and she sat down to catch her breath but did not pass out or lose consciousness. She also states to have
noticed worsening swelling in her legs with about 4 to 5 pounds weight gain of which 2 pounds were attributed in the last 1 week. About 4 days ago her Camzyos dose has been changed from 5 mg to 10 mg when patient called her supply aide office.
Today in the a.m. following her lightheadedness and fatigue she called her supply aide office who advised her to go to the ER for evaluation with a repeat echo.
She sees Dr. Evans on outpatient basis.
Upon review of systems, patient denied having chest pain, palpitations, diaphoresis, orthopnea, PND, syncope. She also denied having fevers, chills, sick contacts, change in bowel or bladder habits, hematuria, melena, hematochezia.
She denies abnormal bleeding or bruising, and states has never missed her warfarin dose.
Upon arrival to the ER, she was found to be hypoxic and was started on 2 L nasal cannula flow with her sats quickly improving. She is afebrile and rest of her vital signs were stable in the ER after 2 L low flow nasal cannula.
She is s/p 1 units of IV Lasix 40 mg in the ER.
Medical History
Past Medical History
Past Medical History: Reports Other (paroxysmal atrial fibrillation, HOCM with left ventricular outflow tract obstruction on Camzyos, history of endocarditis in 2014, s/p mechanical mitral valve, prosthetic mitral stenosis, history of left atrial
clot, nonobstructive CAD currently medically managed, aortic stenosis, hypertension, hyper)
Past Surgical History: Reports Other ( Surgeries-appendectomy, left knee surgery with reconstruction, mitral valve repair-July 11, 2014, cardioversion-2019, PVI ablation-04/21/2023.)
Social History
Tobacco: Former Smoker (40 pack years, quit in 2014.)
Alcohol: Occasional
Drug: None
Personal: Single
Living: Alone
Employment: Employed
Family History
Family History: Not pertinent
Allergies / Home Medications
Allergies reflects when Allergies were last updated in [facility].
Home Medications with original date entered in [facility]
Allergy/Medication List:
Allergies
Allergy/AdvReac Type Severity Reaction Status Date / Time
irbesartan Allergy Pharmacy Verified 02/22/25 11:37
to Review
Penicillins Allergy CHILDHOOD/H Verified 02/22/25 11:37
SUSHMA
procaine HCl (From Novocain) Allergy Pharmacy Verified 02/22/25 11:37
to Review
Home Medications
albuterol sulfate 90 mcg/actuation aerosol inhaler (Ventolin HFA) 2 puff inhalation R TIDPRN PRN SOB 07/11/21
amiodarone 200 mg tablet (Pacerone) 200 mg PO DAILY Arrhythmia 05/27/22
atorvastatin 20 mg tablet (Lipitor) 20 mg PO DAILY High Cholesterol 06/21/23
fluticasone 113 mcg-salmeterol 14 mcg/actuation breath activated powdr 2 inh inhalation R BID Lung/Breathing Issues 06/21/23
acetaminophen 325 mg tablet (Tylenol) 650 mg PO Q4HPRN PRN MILD PAIN 08/23/24
ascorbic acid (vitamin C) 500 mg tablet (Vitamin C) 1,000 mg PO DAILY Supplement 08/23/24
warfarin 2 mg tablet (Jantoven) 1 mg PO QPM 10/03/24
mavacamten 5 mg capsule (Camzyos) 5 mg PO DAILY 12/21/24
aspirin 81 mg tablet,delayed release 81 mg PO DAILY 01/20/25
furosemide 20 mg tablet 60 mg PO BID 01/20/25
metoprolol tartrate 25 mg tablet 25 mg PO BID 01/20/25
warfarin 1 mg tablet 1.5 mg PO DAILY 01/20/25
gabapentin 300 mg capsule 300 mg PO BID #20 caps 01/24/25
Review of Systems
-
A 12 point ROS was completed and negative except as noted: Yes
Constitutional: Reports Fatigue and Chills
Respiratory: Reports Trouble Breathing
Cardiac: Reports Other (Lightheadedness, near syncope, weight gain, dyspnea on exertion.)
Abdomen/GI: Reports No Symptoms
: Reports No Symptoms
Musculoskeletal: Reports No Symptoms
Skin: Reports No Symptoms
Neurological: Reports Dizzy and Weakness
Endocrine: Reports No Symptoms
Hematologic/Lymphatic: Reports No Symptoms
Psych: Reports No Symptoms
Physical Exam
Vital Signs
Vital Signs
Temp Pulse Resp BP Pulse Ox
98.3 F 81 19 133/68 96
02/22/25 11:37 02/22/25 14:00 02/22/25 14:00 02/22/25 14:00 02/22/25 14:00
Physical Exam
General: No Apparent Distress and Comfortable
HEENT: Anicteric and Moist mucous membranes
Respiratory: Clear (In bilateral upper lobes) and Crackles (In bilateral lower lobes.); No Wheezes, Rales or Rhonchi
Cardiac: S1/S2, Regular Rhythm, Murmur (Systolic murmur-4/6 in intensity.) and JVD; No Carotid Bruits or HJR
GI: Soft, Non Tender, Non Distended and Normal Bowel Sounds
Musculoskeletal: No Clubbing, No Cyanosis, Edema, Left Lower Extremity (Bilateral, pitting, 1+, up to knees.) and Edema, Right Lower Extremity (Bilateral, pitting, 1+, up to knees)
Skin: Warm
Neuro: AO x 3 and No Motor Deficits
Psych: Calm
Laboratory Results
-
02/22/25 12:00
02/22/25 12:00
Laboratory Results
PT 30.2 Sec (11.4-14.6) H 02/22/25 12:00
INR 2.89 02/22/25 12:00
Total Bilirubin 1.3 mg/dl (0.2-1.3) 02/22/25 12:00
AST 50 U/L (14-36) H 02/22/25 12:00
ALT 41 U/L (0-35) H 02/22/25 12:00
Alkaline Phosphatase 221 U/L (38-126) H 02/22/25 12:00
Data Reviewed
-
Diagnostic Radiology: Image Personally Visualized and interpreted, Report Reviewed by me, Discussed with Physician and Discussed with Patient
Medical Tests (Nuc Med, Echo, EKG etc): Report Reviewed by me, Discussed with Physician and Discussed with Patient
Lab Data: Labs Reviewed by me, Discussed with Physician and Discussed with Patient
Impression/Plan
-
IMPRESSION: 79-year-old female with history of paroxysmal atrial fibrillation, HOCM with left ventricular outflow tract obstruction on Camzyos, history of endocarditis in 2015, s/p mechanical mitral valve, prosthetic mitral stenosis, history of left
atrial clot, nonobstructive CAD currently medically managed, aortic stenosis, hypertension, hyperlipidemia, COPD, GERD, chronic left knee pain, presents to the hospital for evaluation of shortness of breath and swelling in the legs. Patient states
that she has been experiencing dyspnea on exertion and fatigue for about 1 month that has been progressively worsening over the last 1 month. She is diagnosed to be in acute exacerbation of heart failure, HFpEF.
PLAN:
# Acute hypoxemic respiratory failure-
Currently on 2 L nasal cannula flow
Likely secondary to volume overload
Wean off oxygen as tolerated.
# Acute exacerbation of heart failure, HFpEF -
Likely exacerbated by atrial fibrillation.
About 10 to 12 pound weight gain in the last 1 month.
History of HFpEF on most recent echocardiogram-January/2025.
On 60 mg p.o. Lasix twice daily.
Admit the patient to IVU, obtain an echocardiogram
IV Lasix 60 mg twice daily, monitor daily I's and O's
Fluid and sodium restricted diet
Monitor daily weights.
Cardiology consulted, on board, currently on [id number]
Consider GDMT-defer to cardiology
# BUTCH-
No prior history of CKD
Likely volume overload versus cardiorenal syndrome.
Monitor for serum creatinine improvement with IV Lasix.
Trend renal function.
# A-fib with RVR, and mechanical mitral valve-
On amiodarone and metoprolol tartrate for rate control.
[id number] score-8, on warfarin for mechanical mitral valve.
Continue warfarin home regimen
Trend INRs every day, therapeutic range-2.5-3.5
History of cardioversion and PVI ablation in the past.
# Transaminitis-
Likely secondary to hepatic congestion from heart failure
Monitor liver function.
# History of endocarditis, s/p mechanical mitral valve
Warfarin, PT/INR.
# Hypertrophic obstructive cardiomyopathy-
Camzyos home dose doubled from 5 mg to 10 mg.
Continue home dose Camzyos 10 mg.
Defer further management to cardiology.
# COPD-
Continue daily inhaler home regimen.
# Hyperlipidemia-
Continue home dose statin.
# Chronic pain-
Patient reports to have acute on chronic knee pain and is asking for possible steroid shot in the knee.
Will start the patient on lidocaine patch to be placed on left knee.
# DVT prophylaxis-
On warfarin
# CODE STATUS-
Full code.
Recent workup-
Chest x-ray-02/22/2025-cardiomegaly.
PVS-01/24/2025-
LEFT LOWER EXTREMITY: The left common femoral, femoral, popliteal, peroneal, and posterior tibial veins are patent. There is no sonographic evidence for deep venous thrombosis.
EKG-02/22/2025-
Right axis deviation, ST and T wave abnormality, QTc prolongation at 511.
YUE-01/20/2025-
SUMMARY
1. Normal left ventricular systolic function; LVEF 55-60% by visual estimate. Small left ventricular chamber size. Severe left ventricular hypertrophy.
2. Dilated right ventricle with mildly reduced right ventricular systolic function.
3. Aortic sclerosis. Mild to moderate aortic regurgitation.
4. Well-seated bioprosthetic valve in the mitral position. Leaflets are thin and open normally. Mean mitral valve gradient 6 mmHg. No mitral regurgitation seen.
5. Dense spontaneous echo contrast and possible thrombus seen in the left atrial appendage.
6. Direct-current cardioversion was not performed.
YUE-10/06/2024-
CONCLUSIONS
Normal left ventricular chamber size, severe concentric left ventricular
hypertrophy. Normal left ventricular systolic function with ejection fraction
60 to 65%.
Mildly dilated right ventricle with mildly reduced right ventricular function.
Severely dilated left atrium. Some spontaneous echo contrast seen in the left
atrial cavity.
Moderately dilated right atrium.
No left atrial appendage thrombus. Dilated left atrial appendage.
A bioprosthetic mitral valve is noted with significant thickening and
calcification. There is restricted leaflet motion and the valve visually
appears with moderate to severe stenosis. Mean mitral valve gradient across
the valve was 11 mmHg. Moderate to severe eccentric mitral regurgitation was
noted with flow coming into the left atrial appendage.
Mild to moderate aortic regurgitation.
Moderate tricuspid regurgitation.
Compared to previous YUE from August 2024, there is no left atrial thrombus
noted in this study and mean gradient across the mitral valve as well as mitral
regurgitation are increased.
[2025-02-22] MEDS: LASIX 40 MG IV (14:31)
--- NOTE | 2025-02-22 14:49 | CON.CAR ---
Addendum entered and electronically signed by Alejandro Posada MD 02/22/25 18:26:
79-year-old woman admitted with acute on chronic HFpEF. 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
and then progressive CLAYTON and edema. Presented to hospital. Currently on amiodarone for persistent atrial fibrillation, PVI planned for March
PMH/PSH: Bioprosthetic mitral valve replacement 2014, status post TMVR at [facility] October 2024 for prosthetic mitral stenosis, paroxysmal to persistent atrial fibrillation, left atrial appendage thrombus, PVI in 2022, repeat PVI scheduled
March 2025, HCOM on mavacamten, pulmonary hypertension, nonobstructive CAD, mild aortic stenosis, history of endocarditis, hypertension, hyperlipidemia
Outpatient cardiac meds: Furosemide 60 mg twice daily, mavacamten, metoprolol tartrate 25 twice daily, warfarin, amiodarone 200 mg a day
133/68, pulse 74, respiratory rate 19, afebrile, sats 96%, weight is 73.6 kg, had been 68.1 kg January 24, wheezing, somewhat short of breath, pleasant, 3/6 systolic murmur left sternal border, JVD elevated, some edema, tachypneic, abdomen benign
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
ECG: Atrial fibrillation, right axis deviation, nonspecific ST and T changes, cannot exclude lead reversal
Hemoglobin 14.1, BUN and creatinine are 49 and 1.4, potassium is 3.6, AST is 50, ALT is 41, proBNP is 7090
Impression:
Acute on chronic HFpEF
Hypertrophic cardiomyopathy with recent increase in mavacamten
TMVR for bioprosthetic mitral valve stenosis October 2024
Persistent atrial fibrillation scheduled for PVI March 2025, on amiodarone
History of PVI 2002
Left atrial appendage thrombus by transesophageal echo January 2025
Aortic sclerosis, mild to moderate aortic regurgitation
History of endocarditis
Hypertension
Hyperlipidemia
COPD
Plan:
Note below reviewed in detail and agree, unless otherwise specified.
She presents with acute on chronic HFpEF in the setting of hypertrophic cardiomyopathy following an increase in mavacamten in the setting of recent TMVR for bioprosthetic mitral stenosis.
Complicating matters is persistent atrial fibrillation pending PVI, on amiodarone
Will treat with IV furosemide and hold mavacamten. Will need to speak with Dr. Lundberg regarding restart of mavacamten
Long-term will need to consider whether she is candidate for alcohol septal ablation for hypertrophic cardiomyopathy.
Echo repeated today, overall satisfactory.
Original Note:
Consultation
Consultation Request
Date/Time Consultation Performed: 02/22/25
Requesting Provider: Damián Conn PA-C
Performing Provider: Carmen Fritz PA-C for Dr. TIMMY Posada
Reason for Consultation: CHF
Medical History
-
Chief Complaint: Shortness of breath
History of Present Illness:
Elizabeth is well-known to our practice. She comes to the emergency room for progressive shortness of breath. She has a history of a tissue MVR from 2014 then determined to have prosthetic MV stenosis and underwent TMVR at [facility] 10/15/24. She has
paroxysmal atrial fibrillation, and was noted to have concern for evidence of thrombus in her left atrial appendage by prior YUE so was transitioned from Eliquis to warfarin. Post TMVR she was planned for YUE/cardioversion, however YUE showed
continued evidence of 'sludge' in left atrial appendage and cardioversion was deferred. She has been maintained on Lopressor 25 mg twice daily as well as amiodarone 200 mg daily. She also has history of HOCM and was restarted on camzyos after her
TMVR. She had been tolerating 5mg dosing and last week dosage was increased to 10mg daily. She reports seemingly correlated to this she has noted SOB, orthopnea, LE edema, and weight gain. She has been compliant with po lasix 60mg BID as OP. ProBNP
7090. She has PAF s/p PVI 04/2023 and is planned for YUE/redo PVI 03/16/[address] Jon Evans. Cardiology consulted for mgmt of acute CHF. 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
Past medical history:
Bioprosthetic mitral valve replacement 2014 with prosthetic MS s/p TMVR 10/15/24@ [facility]
Chronic HFpEF
Spontaneous echo contrast in the left atrium and definite thrombus in the MARIANELA by YUE 08/13/2024
Eliquis transitioned to warfarin for LA smoke by YUE 08/13/24
Paroxysmal atrial fibrillation
s/p PVI 04/2023
HCM, severe concentric LVH, on Camzyos, dosing changes managed at [facility]
PHTN
s/p RHC at [facility] 12/2023
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
Mild , peak to peak gradient 11 mmHg by cath at [facility] 07/29/24
h/o endocarditis
Hypertension
Hyperlipidemia
COPD
Past Medical History
Past Medical History: Other (in HPI)
Past Surgical History: Appendectomy, Cardiac (Bioprosthetic mitral valve replacement 2014) and Orthopedic
Social History
Tobacco: Former Smoker
Alcohol: Daily (1 light beer a day)
Drug: None
Personal: Single
Living: Alone
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
Family History
Family History: Reviewed & Not Pertinent
Allergies / Home Medications
Allergy/AdvReac Type Severity Reaction Status Date / Time
irbesartan Allergy Pharmacy Verified 02/22/25 11:37
to Review
Penicillins Allergy CHILDHOOD/H Verified 02/22/25 11:37
SUSHMA
procaine HCl (From Novocain) Allergy Pharmacy Verified 02/22/25 11:37
to Review
�Medication �Instructions �Recorded �Confirmed �Type
albuterol sulfate 90 mcg/actuation 2 puff inhalation R TIDPRN PRN SOB 07/11/21 02/22/25 History
aerosol inhaler (Ventolin HFA)
atorvastatin 20 mg tablet (Lipitor) 20 mg PO DAILY High Cholesterol 06/21/23 02/22/25 History
fluticasone 113 mcg-salmeterol 14 2 inh inhalation R BID 06/21/23 02/22/25 History
mcg/actuation breath activated Lung/Breathing Issues
powdr
acetaminophen 325 mg tablet 650 mg PO Q4HPRN PRN MILD PAIN 08/23/24 02/22/25 History
(Tylenol)
ascorbic acid (vitamin C) 500 mg 1,000 mg PO DAILY Supplement 08/23/24 02/22/25 History
tablet (Vitamin C)
warfarin 2 mg tablet (Jantoven) 2.5 mg PO QPM 10/03/24 02/22/25 History
mavacamten 5 mg capsule (Camzyos) 5 mg PO DAILY 12/21/24 02/22/25 History
aspirin 81 mg tablet,delayed 81 mg PO DAILY Heart 01/20/25 02/22/25 History
release Disease/Condition
furosemide 20 mg tablet 60 mg PO BID Fluid 01/20/25 02/22/25 History
Retention/Swelling
metoprolol tartrate 25 mg tablet 25 mg PO BID Heart 01/20/25 02/22/25 History
Disease/Condition
gabapentin 300 mg capsule 300 mg PO BID moderate pains 02/22/25 02/22/25 History
Review of Systems
-
History Source: Patient
All other systems: Negative unless noted
Physical Exam
Vital Signs
Temp Pulse Resp BP Pulse Ox
98.3 F 74 19 133/68 96
02/22/25 11:37 02/22/25 14:31 02/22/25 14:00 02/22/25 14:31 02/22/25 14:00
Lab Results
02/22/25 12:00
02/22/25 12:00
Kxu-G-Uztxvubacms Pept 7090 pg/ml 02/22/25 12:00
Physical Exam
General: No Apparent Distress, Comfortable and Other (on supp O2)
HEENT: Normocephalic, Anicteric and Moist Mucous Membranes
Respiratory: Crackles (few) and Non Labored Respirations
Cardiac: S1/S2 and Irregular Rhythm
GI: Soft, Non Tender, Non Distended and Normal Bowel Sounds
Musculoskeletal: No Clubbing, No Cyanosis and Edema (1+ of LLE, trace of RLE with erythema of L knee which patient states is chronic)
Skin: Warm and Dry
Neuro: AO x 3
Impression / Plan
-
PCP: Antonieta Clark MD
CDY: Yahaira Evans MD locally and Dr. Pat at [facility] ([phone])
Assessment:
Presentation with SOB
Acute on chronic HFpEF
Bioprosthetic mitral valve replacement 2014 with prosthetic MS s/p TMVR 10/15/24@ [facility] [place]
Spontaneous echo contrast in the left atrium and definite thrombus in the MARIANELA by YUE 08/13/2024
Eliquis transitioned to warfarin for LA smoke by YUE 08/13/24
Paroxysmal atrial fibrillation
s/p PVI 04/2023
planned for repeat PVI with PFA 03/16/25
HCM, severe concentric LVH, on Camzyos, dosing changes managed at [facility]
PHTN
s/p RHC at [facility] 12/2023
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
Mild , peak to peak gradient 11 mmHg by cath at [facility] 07/29/24
h/o endocarditis
Hypertension
Hyperlipidemia
COPD
YUE 08/13/24: [facility] at [facility] study, EF 65%, moderately dilated RV with mild RV hypokinesis, severely dilated LA with evidence of spontaneous echo contrast and definite MARIANELA thrombus, bioprosthetic mitral valve with marked thickening and
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
YUE 09/28/2024: EF 60 to 65%, severe concentric LVH, mildly dilated RV and mildly reduced RV systolic function, some spontaneous echo contrast seen in the left atrial cavity, but no left atrial appendage thrombus, bioprosthetic mitral valve with
significant thickening and calcification, restricted leaflet motion and the valve visually appears to have moderate to severe stenosis, mean mitral valve gradient 11 mmHg, moderate to severe MR with flow coming into the left atrial appendage, mild
to moderate aortic regurgitation, moderate TR
YUE 01/20/25: EF 55 to 60%, severe LVH, aortic sclerosis, mild to moderate AR, well-seated bioprosthetic valve in mitral position with mean mitral gradient 6 mmHg, no MR, again spontaneous echo contrast and possible thrombus in left atrial appendage
Plan:
- Patient presents with shortness of breath, orthopnea, lower extremity edema and weight gain consistent with acute on chronic CHF exacerbation
- This is her first admission status post TMVR 10/15/2024 at [facility]
- she reports her symptoms correlate with an increase in her Camzyos dose from 5 mg daily to 10 mg daily last week. This dose adjustment was based off of recent echocardiogram which reportedly still showed she had a hocm gradient
- She reports she has been compliant with outpatient p.o. Lasix 60 mg twice daily. Continue IV Lasix diuresis. Creatinine stable
- CHF education
- wean supp O2 as able. she also has known history of COPD
- Consider follow-up echo study, most recent YUE from 01/20 with results as above
- Currently remains in rate controlled atrial fibrillation. Continue OP Lopressor. Consider increasing amiodarone dosing to 200mg BID in preparation for PVI if felt to be etiology of acute HF exacerbation. She is planned for redo PVI with PFA
03/16/[address] Jon Evans
- continue coumadin. INR therapeutic at 2.89 on 02/22.
Data Reviewed
-
EKG: Tracing Personally Visualized and interpreted
Radiology: Report Reviewed by me
Medical Tests (Nuc Med, Echo etc): Report Reviewed by me
Labs: Labs Reviewed by me
Old Records: Reviewed
--- NOTE | 2025-02-22 14:53 | W.PN.UPDATE ---
Addendum entered and electronically signed by Jori Freitas MD 02/22/25 15:50:
MAVACAMTEN (Camzyos) ~ cardiac myosin inhibitor to treat symptomatic HCM
Safety information
- can cause heart failure if it is reduce contractility too much
- requires regular ECHO every 4- 12 weeks to monitor LVEF and LVOT gradient
- Dose adjustment based on LVEF and symptoms
- Not for use with Disopyramide ( Verapamil or diltiazem) which can increase heart failure
Addendum entered and electronically signed by Jori Freitas MD 02/22/25 15:31:
Correction
79F HX Bio MVR, Persistent <del>Prx</del> AF, HFpEF, HOCM, HX atrial thrombus
Original Note:
Update Note
Progress Note Update
This note serves as an addendum to the H&P by PGY3
HPI
79F HX Bio MVR, Prx AF, HFpEF, HOCM, HX atrial thrombus seen at ER:
- HX CHF on Lasix and Camzyos.
- Recent dose of Camzyos was doubled from 5 mg to 10 mg.
- presents today with increased leg swelling, shortness of breath and fatigue.
- She spoke with cardiology office over the phone and they sent her in for evaluation.
-recent past she has gained about 4 to 5 kg.
ROS
- denies chest pain.
- was hypoxic on triage and is currently on 2 L of nasal oxygen.
PMHX:
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
Chronic HFpEF
Spontaneous echo contrast in the left atrium and definite thrombus in the MARIANELA by YUE 08/13/2024
Eliquis transitioned to warfarin for LA smoke by YUE 08/13/24
Paroxysmal atrial fibrillation: s/p PVI 04/2023
HCM, severe concentric LVH, previously on Camzyos dosing changes managed at [facility]
PHTN: s/p RHC at [facility] 12/2023
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
Mild , peak to peak gradient 11 mmHg by cath at [facility] 07/29/24
HX endocarditis
Hypertension
Hyperlipidemia
COPD
Relevant VS
02/22/25
11:37 02/22/25
12:15 02/22/25
12:25
Temp 98.3 F
Pulse 89
Blood pressure 109/61
SaO2 88 98
Oxygen Mode of Delivery Room air
Nasal Cannula flow liters per minute 2
01/24/25
08:22 02/22/25
11:51
Actual Weight 68.1 kg 73.6 kg
PE:
General: No acute distress, AAOX3
Neck: Negative JVD
CVS: Irregular , S1/S2, POS murmur
Lungs: CTA b/l, b/l rales
Abd: Positive BS, NT/ND, neg rebound/rigidity/guarding
Ext: edema
Neuro: nonfocal
Relevant data�
01/02/25 01/24/25 02/22/25
09: 10:06 12:00
WBC 5.8
Hgb 14.1
INR 2.89
Creatinine 0.8 1.4 H
eGFR > 60.00 38.51
AST 38 H 50 H
ALT 32 41 H
Alkaline Phosphatase 165 H 221 H
Pjf-L-Gkncfqfkwws Pept 7840 7090
EKG:
ATRIAL FIBRILLATION
Significant baseline artifact
RIGHT AXIS DEVIATION
ST and T WAVE ABNORMALITY, CONSIDER INFERIOR ISCHEMIA
ST and T WAVE ABNORMALITY, CONSIDER ANTEROLATERAL ISCHEMIA
ABNORMAL ECG
WHEN COMPARED WITH ECG OF 02-Jan-2025 09:18,
T WAVE INVERSION MORE EVIDENT IN INFERIOR LEADS
Confirmed by Adam STEVENS ERIC ([id number]) on 02/22/2025 1:08:02 PM
CXR
- Cardiomegaly.
- suggesting mild CHF.
R/LHC 07/29/2024: PCWP 17 mmHg, severe PHTN with PAP 42 mmHg, PVR 6.58 Wood units, CI 2.29, severe mitral stenosis with mean gradient 10.05 mmHg and calculated mitral valve area by Gorlin equation 1.04 cm sq, noncritical CAD, LM luminal
irregularities, LAD luminal irregularities, circumflex 50% mid lesion otherwise luminal irregularities, RCA luminal irregularities
YUE 08/13/24: [facility] study,
EF 65%
moderately dilated RV with mild RV hypokinesis, severely dilated LA
evidence of spontaneous echo contrast and definite MARIANELA thrombus,
bioprosthetic mitral valve with marked thickening and calcification and a mean gradient of 6 mmHg, mild MR,
visually there appears to be moderate to severe bioprosthetic stenosis
Last hospitalist admission :10/03/24 - 10/08/24 ; DX Acute HFpE
ASSESSMENT & PLAN
Acute on chronic HFpEF
Associated mild hypoxic RI requiring low flow NC O2
Volume overload - gained 5.5 kg over last 4 weeks
BUTCH due to cardiorenal syndrome
Elevated Transaminase due to Hepatic congestion 2/2 CHF
Elevated pro BNP but stable
- Diuretics: IV 60 BID
- daily weight I/O
- Monitor renal function and LFts
- cont metoprolol
- Fluid and Salt restriction
- DCA Card consult
Persistent Afib: Therapeutic INR, control VR
HX Paroxysmal atrial fibrillation: s/p PVI 04/2023
Atrial Thrombus
- Rate control: Metoprolol l tartrate 25 mg twice a day
- Antiarrhythmic; Amiodarone
- AC: on warfarin
- daily INR
HOCM HX
- on Camzyos, with known HOCM that is managed at [facility]
Essential Hypertension:
- Continue home antihypertensive
Hyperlipidemia:
- Continue home statins, atorvastatin 20 mg p.o. daily
COPD:
- No bronchospasm
- Continue home inhalers
Known HX
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
Spontaneous echo contrast in the left atrium and definite thrombus in the MARIANELA by YUE 08/13/2024
HX Eliquis transitioned to warfarin for LA smoke by YUE 08/13/24
HCM, severe concentric LVH, previously on Camzyos dosing changes managed at [facility]
PHTN
s/p RHC at [facility] 12/2023
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
Mild , peak to peak gradient 11 mmHg by cath at [facility] 07/29/24
HX endocarditis
Hypertension
Hyperlipidemia
COPD
DVT Px: on Warfarin
Full code
IP TLM
--- NOTE | 2025-02-22 15:55 | W.PN.UPDATE ---
Update Note
Progress Note Update
Correction and addendum
79F HX Bio MVR, Persistent <del>Prx</del> AF, HFpEF, HOCM on Camzyos , HX atrial thrombus
09/28/24 YUE
- EF 60 to 65%
01/20/25 YUE
- EF 55 to 60%
MAVACAMTEN (Camzyos) ~ cardiac myosin inhibitor to treat symptomatic HCM
Safety information
- can cause heart failure if it is reduce contractility too much
- requires regular ECHO every 4- 12 weeks to monitor LVEF and LVOT gradient
- Dose adjustment based on LVEF and symptoms
- Not for use with Disopyramide ( Verapamil or diltiazem) which can increase heart failure
AP
- To consider repeat TTE in AM
- await card consult
[2025-02-22 17:48] LABS: Magnesium 2.7 mg/dl (1.6-2.3)
--- NOTE | 2025-02-22 18:17 | PTCARENOTE ---
Rec'd Pt A,A+OX3, c/o some L knee pain upon mvt. denies pain when still. L knee and lower leg swollen, +2 edema. L inner knee and thigh redness noted. Pt in A-fib, denies SOB currently, she is on O2 at 2L. Lungs clear w/ decreased breath sounds
bilat.
[2025-02-22] MEDS: LIDOCAINE 4% PATCH 1 PATCH TOPICAL (19:12)
[2025-02-22] MEDS: ADVAIR HFA 115/21 MCG INHALER 2 PUFF INH (20:13)
[2025-02-22] MEDS: COUMADIN 2.5 MG PO (20:23)
[2025-02-22] MEDS: LOPRESSOR 25 MG PO (20:24)
[2025-02-22] MEDS: NEURONTIN 300 MG PO (20:27)
[2025-02-22] MEDS: TYLENOL 650 MG PO (20:30)
[2025-02-22] MEDS: REMOVE LIDOCAINE PATCH 1 PATCH REMOVE (22:41)
--- NOTE | 2025-02-22 23:45 | PTCARENOTE ---
Received pt at change of shift resting in bed. Afib/flutter on tele, HR 70's-80's. pt denies any CP at this time. pt reports CLAYTON, currently on 2L02, sating 95-97% at rest. pt c/o R first finger pain 11/18. PRN Tylenol administered per pt request, pt
verbalizes relief. Encouraged pt to call RN with any questions/concerns. Call burris within reach.
[2025-02-23] VITALS (11 sets, daily range): BP systolic 109–152; BP diastolic 52–93; PULSE 85; O2SAT 95–96; BMI 29.1
[2025-02-23] MEDS: TYLENOL 650 MG PO ×2 (04:19→20:25)
[2025-02-23 04:23] LABS: Hematocrit 44.4 % (37.0-47.0); Hemoglobin 13.3 g/dL (12.0-16.0); Mean Corp Hgb Conc. 30.0 g/dL (33.0-37.0); Mean Corpuscular Volume 89.0 fL (81.0-99.0); Platelet Count 119 10^3/uL (130-400); Red Cell Dist. Width 17.2 % (11.5-14.5)
[2025-02-23 04:35] LABS: INR 2.32; PT 25.5 Sec (11.4-14.6)
[2025-02-23 04:36] LABS: APTT 43.6 Sec (23.4-35.0)
[2025-02-23 04:48] LABS: ALT (SGPT) 44 U/L (0-35); AST (SGOT) 48 U/L (14-36); Albumin 3.6 g/dl (3.5-5.0); Alkaline Phosphatase 172 U/L (38-126); Blood Urea Nitrogen 42 mg/dl (7-17); Calcium 8.6 mg/dl (8.4-10.2); Carbon Dioxide 25 mmol/L (22-30); Chloride 108 mmol/L (98-107); Estimated Creatinine Clearance 38 ml/min; Glucose 98 mg/dl (70-99); Potassium 3.4 mmol/L (3.5-5.1); Sodium 142 mmol/L (135-145); Total Protein 6.3 g/dl (6.3-8.2); eGFR 51.43
[2025-02-23] MEDS: ADVAIR HFA 115/21 MCG INHALER 2 PUFF INH ×2 (07:18→20:44)
--- NOTE | 2025-02-23 08:28 | W.PN.HOSP.TC ---
Addendum entered and electronically signed by Narcisa Moore MD 02/23/25 14:40:
Attending�addendum:
I�saw�and�evaluated�the�patient.�I�reviewed�the�resident�s�note�and�agree�with�findings�and�plan�as�documented�in�the�resident�s�note.��
Patient seen and examined at bedside, denies any chest pain , shortness of breath Improved, no abdominal pain, no nausea, no vomiting, no diarrhea or constipation.
+1 left lower extremity edema improved.
Physical�exam:
GENERAL : Patient is awake, alert, oriented x3
HEENT: Nonicteric sclerae, PERRLA, EOMI. Oropharynx clear. Moist mucous membranes. Conjunctivae appear well perfused.
CHEST: Chest wall is nontender.
HEART: Irregular rate and rhythm without murmurs.
LUNGS: rales bilaterally.
ABDOMEN: Soft, positive bowel sounds, nontender, no organomegaly.
RECTAL: Deferred.
MUSCLES/EXTREMITIES: No abnormal range of motion, no swelling.SKIN: No rash, no excessive bruising, petechiae, or purpura.
NEUROLOGIC: Cranial nerves II-XII intact without motor/sensory deficit.
�
Assessment/plan:
Acute diastolic CHF.
Continue Lasix.
Hold Camzyos
Acute hypoxic spectra failure.
Wean oxygen
Persistent A-fib.
Continue warfarin and amiodarone
CODE STATUS: Full code
DVT prophylaxis: Warfarin
Diet: Cardiac diet
Disposition: Continue Lasix
�
Total time spent on today�s encounter was 55 minutes which included time spent in counseling the patient/family regarding diagnosis and treatment plan as listed above, goals of care, and symptom management. Case was discussed with nursing staff,
specialists, and care coordinators/case management. All labs and imaging personally reviewed by me. Remainder the time spent in detailed review of previous records, lab data, imaging, and other medical provider documentation.
Original Note:
Today's Communication/Plan
-
Plan reviewed with attending
Hold camzyos
Symptoms resolved
Assessment / Plan
Assessment / Plan
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
leg swelling correlated to when her camzyos dose was increased a few days ago.
Camzyos was held on admission. Pt reports resolved symptoms. Her only complaint is hand tremors she associated with low K. We will replete her K goal 4, currently 3.4.
AFVSS in afib rate controlled. On 2L NC. Cardiology following. Pending cardiology recs for resuming camzyos. Continue all other cardiac related home medications.
#HOCM
#acute respiratory failure
- on 2L NC. Not on home O2. Continue home breathing treatments.
- Hold camzyos per cardiology
#HFpEF
- Echo yesterday
- Continue home lasix
#persistent afib
- continue home amiodarone
- Continue home warfarin
#chronic knee pain
- continue home gabapentin and lidocaine patch
Anticipated Discharge: Within 24 hours
Subjective/Interval History
-
Date of Service: February 23, 2025
Pt reports feeling well this morning. She denies SOB or lightheadedness, reporting her presenting symptoms have resolved. She reports having some SOB at baseline but feels no different on oxygen but better than presentation. She describes her
baseline L leg swelling due to 50 year old knee injury but reports for the last 2 mo her L leg has been more swollen than usual with 2 recent LE US r/o DVT.
Of note, she complains of hand tremors. She reports having these with low potassium in the past. Pt denies constipation, diarrhea, nausea, vomiting, headache.
Objective Data
-
Labs:
Laboratory Results
02/23/25
03:55
WBC 5.8
Hgb 13.3
Hct 44.4
Plt Count 119 L
PT 25.5 H
INR 2.32
APTT 43.6 H
Sodium 142
Potassium 3.4 L
Chloride 108 H
Carbon Dioxide 25
BUN 42 H
Creatinine 1.1 H
Glucose 98
Calcium 8.6
Total Bilirubin 1.2
AST 48 H
ALT 44 H
Alkaline Phosphatase 172 H
Vital Signs:
Vital Signs
Temp Pulse Resp BP Pulse Ox
98.3 F 73 17 120/67 98
02/23/25 03:43 02/23/25 08:23 02/23/25 08:23 02/23/25 03:45 02/23/25 08:23
I&O
02/22/25 02/23/25 02/24/25
06:59 06:59 06:59
Intake Total 720 / 720
Output Total 300 / 300
Balance 420 / 420
Review of Systems
-
History Source: Patient
All other systems: Reviewed and negative
Physical Exam
-
General: No Apparent Distress, Comfortable and Appears Chronically Ill
HEENT: Normocephalic, Atraumatic, Moist Mucous Membranes, Nose Appears Normal and Ears Appear Normal
Respiratory: Clear to Auscultation and Non Labored Respirations (on 2L NC)
Cardiac: S1/S2, Irregular Rhythm and Murmur
Breast: Deferred by me
GI: Soft, Nontender and Nondistended
Musculoskeletal: Edema, Left Upper Extrem (erythema, pitting edema, and swelling around her knee, no edema around ankle); Negative Edema, Right Lower Extrem
Skin: Warm and Dry
Neuro: AO x 3, No Motor Deficits and Nonfocal/Grossly Intact
Psych: Calm
--- NOTE | 2025-02-23 08:44 | CM ---
Reviewed chart. Met with Mrs. Ortiz to review discharge plans. She states prior to admission she resides alone in a second floor walk-up apartment. She states she has twelve steps to get to her apartment. She states prior to admission she was
independent with ambulation and adls. She states she stone not have any DME in the home. She states she does not have a prescription plan. Will need to see her current functional level to see if she will have any skilled care needs. Medial work-up
in progress. The discharge plan is to return home when medically stable.
[2025-02-23] MEDS: LOPRESSOR 25 MG PO ×2 (08:47→20:01)
[2025-02-23] MEDS: LIPITOR 20 MG PO (08:47)
[2025-02-23] MEDS: ASPIR LOW (ENTERIC COATED) 81 MG PO (08:48)
[2025-02-23] MEDS: KCL 40 MEQ PO (08:48)
[2025-02-23] MEDS: LIDOCAINE 4% PATCH 1 PATCH TOPICAL (08:49)
[2025-02-23] MEDS: PACERONE 100 MG PO (08:49)
[2025-02-23] MEDS: NEURONTIN 300 MG PO ×2 (08:49→20:01)
[2025-02-23] MEDS: LASIX 60 MG IV ×2 (08:50→15:40)
--- NOTE | 2025-02-23 13:10 | W.PN.CARDCBS ---
Addendum entered and electronically signed by Rigoberto Brunson MD 02/23/25 16:30:
I saw and examined the patient.
The Fireworks Display Specialist's note was reviewed and I agree with the note.
Comment:
GEN: No distress, awake, Ox3
HEENT: supple, anicteric, mmm
LUNGS: CTA, no wheezes/rales
CV: irreg, S1/S2, 2/6 syst LSB, no gallop
ABD: soft, BS+, NT/ND
EXT: No edema
NEURO: Gross non-focal
SKIN: No rash
Plan:
Clinically improved. Will continue IV Lasix for another 24 hours. Hopeful for possible transition to oral Lasix in AM.
Continue metoprolol 25 mg p.o. twice daily. Continue amiodarone 100 mg daily.
Will remain off Camzyos for now with recent heart failure exacerbation.
Echo was reviewed and transcatheter mitral valve overall stable with mean gradient of 11. PA pressure was markedly elevated at 72 mmHg. There was severe tricuspid regurgitation.
There was no significant LVOT gradient.
Creat normal at 1.1
Will reach out to mid level java developer at [facility].
Original Note:
Today's Communication / Plan
-
Patient is missing her outpatient PAT appointment today, we can order type and screen, but she will have to complete pre-PVI CT scan as an outpatient
Ongoing attempts at diuresis
I called Dr. Pat's office regarding Camzyos dosing and await their callback
Impression / Plan
-
PCP: Antonieta Clark MD
CDY: Yahaira Evans MD locally and Dr. Pat at [facility] ([phone])
Assessment:
Presentation with SOB 02/22/2025
Acute on chronic HFpEF
Mitral valve disease
s/p bioprosthetic mitral valve replacement 2014
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
Spontaneous echo contrast in the left atrium and definite thrombus in the MARIANELA by YUE 08/13/2024
No longer evidence of MARIANELA thrombus on repeat YUE 10/06/2024
Spontaneous echo to contrast again in the LA with concern for possible MARIANELA thrombus by YUE 01/20/2025
Eliquis transitioned to warfarin for LA smoke by YUE 08/13/24
Paroxysmal atrial fibrillation
s/p PVI 04/2023
planned for repeat PVI with PFA 03/16/25
HCM, severe concentric LVH, on Camzyos, dosing changes managed at [facility]
PHTN
s/p RHC at [facility] 12/2023
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
Mild , peak to peak gradient 11 mmHg by cath at [facility] 07/29/24
h/o endocarditis
Hypertension
Hyperlipidemia
COPD
YUE 08/13/24: [facility] at [place] study, EF 65%, moderately dilated RV with mild RV hypokinesis, severely dilated LA with evidence of spontaneous echo contrast and definite MARIANELA thrombus, bioprosthetic mitral valve with marked thickening and
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
YUE 10/06/2024: EF 60 to 65%, severe concentric LVH, mildly dilated RV and mildly reduced RV systolic function, some spontaneous echo contrast seen in the left atrial cavity, but no left atrial appendage thrombus, bioprosthetic mitral valve with
significant thickening and calcification, restricted leaflet motion and the valve visually appears to have moderate to severe stenosis, mean mitral valve gradient 11 mmHg, moderate to severe MR with flow coming into the left atrial appendage, mild
to moderate aortic regurgitation, moderate TR
YUE 01/20/25: EF 55 to 60%, severe LVH, aortic sclerosis, mild to moderate AR, well-seated bioprosthetic valve in mitral position with mean mitral gradient 6 mmHg, no MR, again spontaneous echo contrast and possible thrombus in left atrial appendage
Echo 02/22/2025: EF 67% without obvious LVOT gradient, s/p TMVR with previous surgical MVR peak/mean 22/11 mmHg, no MR, mild to moderate aortic regurgitation, dilated RV with hypokinesis, severe TR with PAP 74 mmHg
Plan:
-Patient had tissue MVR in 2014 and then developed bioprosthetic mitral stenosis leading to T MVR performed at [facility] on 10/15/2024. Patient also follows with Dr. Pat at [facility] for HCM and is chronically on Camzyos managed by their office. Patient
reports Camzyos dose was increased from 5 mg daily to 10 mg daily last week coinciding with symptoms of SOB, LE edema and weight gain leading to acute HFpEF admission 02/22/2025.
-Weight is down to 154 lbs on 02/23/2025 with previous dry weight of 149 lbs. at last discharge 10/07/2024. Will continue attempts at IV diuresis with Lasix 60 mg IV BID. Patient was taking Lasix 60 mg PO BID prior to admission.
-EF preserved at 67% on echo
-Acute HF symptoms correlated with uptitration in Camzyos dose to 10 mg daily last week, this was reportedly in response to increased LVOT gradient which is no longer seen on echo from 02/22/2025. Camzyos currently on hold, will send message to
Bi's office regarding possible dose change, I called their office 02/23/2025 and left a message for 4 minutes and 31 seconds asking for a callback.
-TMVR stable by echo 02/22/2025
-Patient remains in persistent A-fib, but HR generally controlled with Lopressor 25 mg BID.
-INR therapeutic at 2.32 on labs reviewed by me 02/23/2025. INR goal is 2-3. INRs managed by cardiology office with draws at [facility].
-Patient previously had spontaneous echo contrast in the LA with definite thrombus in the MARIANELA by YUE 08/13/2024. On repeat YUE 09/28/2024 there is no longer evidence of MARIANELA thrombus. Most recently however, patient had YUE 01/20/2025 that showed
spontaneous echo contrast again in the LA with concern for possible MARIANELA thrombus and planned CV was aborted.
-Patient is now waiting for planned PVI 03/16/2025
HPI: Elizabeth is well-known to our practice. She comes to the emergency room for progressive shortness of breath. 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
She has paroxysmal atrial fibrillation, and was noted to have concern for evidence of thrombus in her left atrial appendage by prior YUE so was transitioned from Eliquis to warfarin. Post TMVR she was planned for YUE/cardioversion, however YUE
showed continued evidence of 'sludge' in left atrial appendage and cardioversion was deferred. She has been maintained on Lopressor 25 mg twice daily as well as amiodarone 200 mg daily. She also has history of HOCM and was restarted on camzyos
after her TMVR. She had been tolerating 5mg dosing and last week dosage was increased to 10mg daily. She reports seemingly correlated to this she has noted SOB, orthopnea, LE edema, and weight gain. She has been compliant with po lasix 60mg BID as
OP. ProBNP 7090. She has PAF s/p PVI 04/2023 and is planned for YUE/redo PVI 03/16/[address] Jon Evans. Cardiology consulted for mgmt of acute CHF. 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
Subjective
Date of Service: February 23, 2025
She feels a bit anxious, she was supposed to have outpatient PATs today
Objective
Labs:
02/23/25 03:55
02/23/25 03:55
Labs
Hgb 13.3 g/dL (12.0-16.0) 02/23/25 03:55
Hct 44.4 % (37.0-47.0) 02/23/25 03:55
Plt Count 119 10^3/uL (130-400) L 02/23/25 03:55
PT 25.5 Sec (11.4-14.6) H 02/23/25 03:55
INR 2.32 02/23/25 03:55
APTT 43.6 Sec (23.4-35.0) H 02/23/25 03:55
Sodium 142 mmol/L (135-145) 02/23/25 03:55
Potassium 3.4 mmol/L (3.5-5.1) L 02/23/25 03:55
BUN 42 mg/dl (7-17) H 02/23/25 03:55
Creatinine 1.1 mg/dL (0.6-1.0) H 02/23/25 03:55
Glucose 98 mg/dl (70-99) 02/23/25 03:55
Vital Signs and I&O:
Vital Signs
Temp Pulse Resp BP Pulse Ox
98.2 F 82 17 122/91 97
02/23/25 11:06 02/23/25 11:06 02/23/25 11:06 02/23/25 08:24 02/23/25 11:06
Vital Signs
Temp Pulse Resp BP Pulse Ox
98.2 F 82 17 122/91 97
02/23/25 11:06 02/23/25 11:06 02/23/25 11:06 02/23/25 08:24 02/23/25 11:06
Intake & Output
02/21/25 02/22/25 02/23/25 02/24/25
06:59 06:59 06:59 06:59
Intake Total 720 / 720
Output Total 300 / 300
Balance 420 / 420
Physical Exam
Physical Exam
GEN: NAD. AAO x3
LUNGS: 2 L NC. No audible wheeze
CV: Afib on tele.
--- NOTE | 2025-02-23 14:10 | PTCARENOTE ---
Pt ambulating in room, offers no complaints, will attempt to wean o2.
[2025-02-23] MEDS: COUMADIN 2.5 MG PO (17:21)
[2025-02-23] MEDS: REMOVE LIDOCAINE PATCH 1 PATCH REMOVE (20:01)
--- NOTE | 2025-02-23 22:08 | PTCARENOTE ---
Received pt at change of shift resting in bed. Afib/flutter on tele, HR 70's-90's. pt denies any CP at this time. pt reports CLAYTON, currently on 1LO2, sating 95% at rest. pt c/o L knee pain 12/19. PRN Tylenol administered per pt request. Encouraged pt
to call RN with any questions/concerns. Call burris within reach.
[2025-02-24] VITALS (8 sets, daily range): BP systolic 93–150; BP diastolic 40–78; BMI 28.7
[2025-02-24 03:56] LABS: Hematocrit 44.3 % (37.0-47.0); Hemoglobin 13.4 g/dL (12.0-16.0); Mean Corp Hgb Conc. 30.2 g/dL (33.0-37.0); Mean Corpuscular Volume 91.3 fL (81.0-99.0); Platelet Count 128 10^3/uL (130-400); Red Cell Dist. Width 17.2 % (11.5-14.5)
[2025-02-24 04:14] LABS: INR 2.71; PT 29.2 Sec (11.4-14.6)
[2025-02-24 04:19] LABS: ALT (SGPT) 38 U/L (0-35); AST (SGOT) 40 U/L (14-36); Albumin 3.5 g/dl (3.5-5.0); Alkaline Phosphatase 170 U/L (38-126); Blood Urea Nitrogen 36 mg/dl (7-17); Calcium 8.7 mg/dl (8.4-10.2); Carbon Dioxide 31 mmol/L (22-30); Chloride 108 mmol/L (98-107); Estimated Creatinine Clearance 41 ml/min; Glucose 113 mg/dl (70-99); Potassium 3.8 mmol/L (3.5-5.1); Sodium 143 mmol/L (135-145); Total Protein 6.3 g/dl (6.3-8.2); eGFR 57.66
--- NOTE | 2025-02-24 07:55 | W.PN.CARDCBS ---
Addendum entered and electronically signed by Rigoberto Brunson MD 02/24/25 13:53:
I saw and examined the patient.
The Human Resources Training Manager's note was reviewed and I agree with the note.
Comment:
GEN: No distress, awake, Ox3
HEENT: supple, anicteric, mmm
LUNGS: CTA, no wheezes/rales
CV: Reg, S1/S2, 1/6 syst LSB, no gallop
ABD: soft, BS+, NT/ND
EXT: No edema
NEURO: Gross non-focal
SKIN: No rash
Plan:
Weight is down and she has diuresed well. She is down 11 pounds from admission.
Plan will be for restarting Camzyos at 10 mg daily with [facility]
Will need to recheck her oxygen prior to discharge hopefully can wean off oxygen
Continue amiodarone, metoprolol, aspirin, and atorvastatin.
Original Note:
Today's Communication / Plan
-
Pulse ox 88% on RA, but also received another dose of Lasix 60 mg IV BID in the interim. Recheck pulse ox later in the day and if pulse ox greater than 90% then patient can be discharged to home with Lasix 60 mg PO BID
I talked to Dr. Pat's office yesterday and again today, they want patient to continue with Camzyos at 10 mg daily because EF is preserved on echo, she will restart this when she goes home
Impression / Plan
-
PCP: Antonieta Clark MD
CDY: Yahaira Evans MD locally and Dr. Pat at [facility] ([phone])
Assessment:
Presentation with SOB 02/22/2025
Acute on chronic HFpEF
Mitral valve disease
s/p bioprosthetic mitral valve replacement 2014
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
Spontaneous echo contrast in the left atrium and definite thrombus in the MARIANELA by YUE 08/13/2024
No longer evidence of MARIANELA thrombus on repeat YUE 10/06/2024
Spontaneous echo to contrast again in the LA with concern for possible MARIANELA thrombus by YUE 01/20/2025
Eliquis transitioned to warfarin for LA smoke by YUE 08/13/24
Paroxysmal atrial fibrillation
s/p PVI 04/2023
planned for repeat PVI with PFA 03/16/25
HCM, severe concentric LVH, on Camzyos, dosing changes managed at [facility]
PHTN
s/p RHC at [facility] 12/2023
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
Mild , peak to peak gradient 11 mmHg by cath at [facility] 07/29/24
h/o endocarditis
Hypertension
Hyperlipidemia
COPD
YUE 08/13/24: [facility] at [place] study, EF 65%, moderately dilated RV with mild RV hypokinesis, severely dilated LA with evidence of spontaneous echo contrast and definite MARIANELA thrombus, bioprosthetic mitral valve with marked thickening and
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
YUE 10/06/2024: EF 60 to 65%, severe concentric LVH, mildly dilated RV and mildly reduced RV systolic function, some spontaneous echo contrast seen in the left atrial cavity, but no left atrial appendage thrombus, bioprosthetic mitral valve with
significant thickening and calcification, restricted leaflet motion and the valve visually appears to have moderate to severe stenosis, mean mitral valve gradient 11 mmHg, moderate to severe MR with flow coming into the left atrial appendage, mild
to moderate aortic regurgitation, moderate TR
YUE 01/20/25: EF 55 to 60%, severe LVH, aortic sclerosis, mild to moderate AR, well-seated bioprosthetic valve in mitral position with mean mitral gradient 6 mmHg, no MR, again spontaneous echo contrast and possible thrombus in left atrial appendage
Echo 02/22/2025: EF 67% without obvious LVOT gradient, s/p TMVR with previous surgical MVR peak/mean 22/11 mmHg, no MR, mild to moderate aortic regurgitation, dilated RV with hypokinesis, severe TR with PAP 74 mmHg
Plan:
-Patient had tissue MVR in 2014 and then developed bioprosthetic mitral stenosis leading to T MVR performed at [facility] on 10/15/2024. Patient also follows with Dr. Pat at [facility] for HCM and is chronically on Camzyos managed by their office. Patient
reports Camzyos dose was increased from 5 mg daily to 10 mg daily last week coinciding with symptoms of SOB, LE edema and weight gain leading to acute HFpEF admission 02/22/2025.
-Weight is down to 151 lbs on 02/24/2025 with previous dry weight of 149 lbs. at last discharge 10/07/2024. Will continue attempts at IV diuresis with Lasix 60 mg IV BID. Patient was taking Lasix 60 mg PO BID prior to admission.
-Cre is stable at 1.0 on my review of labs 02/24/2025
-Oxygen was removed 02/24/2025 AM and 2 hours later pulse ox was 88% on RA. In the interim patient was given her usual dose of Lasix 60 mg IV BID, so will recheck pulse ox later in the day on 02/24/2025 and if improved will try to discharge to home
without supplemental oxygen. If pulse ox remains less than 90% will ask patient to remain hospitalized for ongoing IV diuresis.
-EF preserved at 67% on echo
-Acute HF symptoms correlated with uptitration in Camzyos dose to 10 mg daily last week, this was reportedly in response to increased LVOT gradient which is no longer seen on echo from 02/22/2025. Camzyos currently on hold. I called and spoke with
Dr. Pat's nurse in his office on 02/23/2025 and she called me back again on 02/24/2025 with instructions that we should continue with Camzyos 10 mg daily given that EF was stable at 67% on our echo 02/22/2025. Patient did not bring in her
Camzyos from home so she did not receive dose 02/23/2025 and has not yet received dose for 02/24/2025, but if she is discharged to home on 02/24/2025 she can take the dose when she gets home.
-TMVR stable by echo 02/22/2025
-Patient remains in persistent A-fib, but HR generally controlled with Lopressor 25 mg BID.
-INR therapeutic at 2.71 on labs reviewed by me 02/24/2025. INR goal is 2-3. INRs managed by cardiology office with draws at [facility].
-Patient previously had spontaneous echo contrast in the LA with definite thrombus in the MARIANELA by YUE 08/13/2024. On repeat YUE 09/28/2024 there is no longer evidence of MARIANELA thrombus. Most recently however, patient had YUE 01/20/2025 that showed
spontaneous echo contrast again in the LA with concern for possible MARIANELA thrombus and planned CV was aborted.
-Patient is now waiting for planned PVI 03/16/2025. Patient is missing previously scheduled PAT appointment on 02/24/2025, we have ordered the type+screen that she would have needed to complete as an outpatient, other labs were already completed as
part of this admission. Cardiology is also working on completing the obligatory H&P for the 03/16/2025 admission. Patient will need to have her outpatient preablation CT scan rescheduled and the cardiology office is working on this.
- Possible discharge to home on 02/24/2025 if resting pulse ox is greater than 90% on recheck later in the day
HPI: Elizabeth is well-known to our practice. She comes to the emergency room for progressive shortness of breath. 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
She has paroxysmal atrial fibrillation, and was noted to have concern for evidence of thrombus in her left atrial appendage by prior YUE so was transitioned from Eliquis to warfarin. Post TMVR she was planned for YUE/cardioversion, however YUE
showed continued evidence of 'sludge' in left atrial appendage and cardioversion was deferred. She has been maintained on Lopressor 25 mg twice daily as well as amiodarone 200 mg daily. She also has history of HOCM and was restarted on camzyos
after her TMVR. She had been tolerating 5mg dosing and last week dosage was increased to 10mg daily. She reports seemingly correlated to this she has noted SOB, orthopnea, LE edema, and weight gain. She has been compliant with po lasix 60mg BID as
OP. ProBNP 7090. She has PAF s/p PVI 04/2023 and is planned for YUE/redo PVI 03/16/[address] Jon Evans. Cardiology consulted for mgmt of acute CHF. 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
Subjective
Date of Service: February 24, 2025
She feels well and would like to go home today if possible
Objective
Labs:
02/24/25 03:39
02/24/25 03:39
Labs
Hgb 13.4 g/dL (12.0-16.0) 02/24/25 03:39
Hct 44.3 % (37.0-47.0) 02/24/25 03:39
Plt Count 128 10^3/uL (130-400) L 02/24/25 03:39
PT 29.2 Sec (11.4-14.6) H 02/24/25 03:39
INR 2.71 02/24/25 03:39
APTT 43.6 Sec (23.4-35.0) H 02/23/25 03:55
Sodium 143 mmol/L (135-145) 02/24/25 03:39
Potassium 3.8 mmol/L (3.5-5.1) 02/24/25 03:39
BUN 36 mg/dl (7-17) H 02/24/25 03:39
Creatinine 1.0 mg/dL (0.6-1.0) 02/24/25 03:39
Glucose 113 mg/dl (70-99) H 02/24/25 03:39
Vital Signs and I&O:
Vital Signs
Temp Pulse Resp BP Pulse Ox
98.0 F 98 20 120/69 92
02/24/25 03:26 02/24/25 06:00 02/24/25 03:26 02/24/25 03:27 02/24/25 03:26
Vital Signs
Temp Pulse Resp BP Pulse Ox
98.0 F 98 20 120/69 92
02/24/25 03:26 02/24/25 06:00 02/24/25 03:26 02/24/25 03:27 02/24/25 03:26
Intake & Output
02/22/25 02/23/25 02/24/25 02/25/25
06:59 06:59 06:59 06:59
Intake Total 720 / 720 420 / 420
Output Total 300 / 300 2875 / 2875
Balance 420 / 420 -2455 / -2455
Physical Exam
Physical Exam
GEN: NAD. AAO x3
LUNGS: RA. No audible wheeze
CV: Afib on tele.
[2025-02-24] MEDS: ADVAIR HFA 115/21 MCG INHALER 2 PUFF INH ×2 (08:03→19:34)
--- NOTE | 2025-02-24 08:30 | W.PN.HOSP.TC ---
Addendum entered and electronically signed by Narcisa Moore MD 02/24/25 13:15:
Attending�addendum:
I�saw�and�evaluated�the�patient.�I�reviewed�the�resident�s�note�and�agree�with�findings�and�plan�as�documented�in�the�resident�s�note.��
Patient seen and examined at bedside, denies any chest pain , shortness of breath Improved, patient was hypoxic on room air, received additional IV Lasix today.
Recheck later in the day and see if she can be discharged home.
Physical�exam:
GENERAL : Patient is awake, alert, oriented x3
HEENT: Nonicteric sclerae, PERRLA, EOMI. Oropharynx clear. Moist mucous membranes. Conjunctivae appear well perfused.
CHEST: Chest wall is nontender.
HEART: Irregular rate and rhythm without murmurs.
LUNGS: rales bilaterally.
ABDOMEN: Soft, positive bowel sounds, nontender, no organomegaly.
RECTAL: Deferred.
MUSCLES/EXTREMITIES: No abnormal range of motion, no swelling.SKIN: No rash, no excessive bruising, petechiae, or purpura.
NEUROLOGIC: Cranial nerves II-XII intact without motor/sensory deficit.
�
Assessment/plan:
Acute diastolic CHF.
Continue Lasix.
Hold Camzyos-resume on discharge
Acute hypoxic respiratory failure.
Wean oxygen-ambulatory pulse ox on exertion before Dc.
Persistent A-fib.
Continue warfarin and amiodarone
CODE STATUS: Full code
DVT prophylaxis: Warfarin
Diet: Cardiac diet
Disposition: Continue Lasix-discharge later today
�
Total time spent on today�s encounter was 55 minutes which included time spent in counseling the patient/family regarding diagnosis and treatment plan as listed above, goals of care, and symptom management. Case was discussed with nursing staff,
specialists, and care coordinators/case management. All labs and imaging personally reviewed by me. Remainder the time spent in detailed review of previous records, lab data, imaging, and other medical provider documentation.
Original Note:
Today's Communication/Plan
-
Plan reviewed with attending
Pending cardiology recs
Continued hypoxia
Assessment / Plan
Assessment / Plan
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
leg swelling correlated to when her camzyos dose was increased a few days ago.
Camzyos was held on admission. Pt reports resolved symptoms. Her only complaint is hand tremors she associated with low K. We will replete her K goal 4, currently 3.4.
AFVSS in afib rate controlled. On 2L NC. Cardiology following. Pending cardiology recs for resuming camzyos. Continue all other cardiac related home medications.
AFVSS, continuing to hold camzyos per cardiology recs. Pt correlates her tremors with starting gabapentin but desires to continue taking it since it helps with her leg cramps. Pt denies SOB or leg swelling worse than baseline. Continues on diuretics
per cardiology. Possible dc today pending SOB and saturation, still reliant on oxygen.
Echo: 1. Small left ventricle with severe LVH and asymmetric septal hypertrophy, EF 67%, without obvious LVOT gradient.
2. Transcatheter mitral valve replacement within previous surgical mitral valve replacement, peak/mean gradient 22/11 mmHg, no mitral regurgitation and dilated left atrium.
3. Aortic sclerosis with mild to moderate aortic regurgitation.
4. Dilated right heart with right ventricular hypokinesis, severe tricuspid regurgitation, and severe pulmonary hypertension, pulmonary artery systolic pressure 74 mmHg.
5. A transesophageal echo January 20, 2025 showed an EF of 55 to 60% with a small left ventricle, severe LVH, dilated and hypokinetic right ventricle, aortic sclerosis with mild to moderate aortic regurgitation, well-seated transcatheter mitral
valve replacement within a bioprosthetic mitral valve and suspected left atrial appendage thrombus.
#HOCM
#acute respiratory failure
- on 1L NC. Not on home O2. Continue home breathing treatments.
- Hold camzyos per cardiology
#HFpEF
- Echo
- Continue home lasix
#persistent afib
- continue home amiodarone
- Continue home warfarin
#chronic knee pain
- continue home gabapentin and lidocaine patch
Anticipated Discharge: Within 24 hours
Subjective/Interval History
-
Date of Service: February 24, 2025
Pt reports feeling well today. She still has hand tremors that she reports commencing right around when she started taking gabapentin. I asked her if she wanted to try stopping the gabapentin to see if the tremors resolve, but she currently would
like to continue since it has helped with leg cramps and what she describes similar to RLS. Denies SOB or leg swelling worse than baseline. No complaints or acute overnight events.
Objective Data
-
Labs:
Laboratory Results
02/24/25
03:39
WBC 6.5
Hgb 13.4
Hct 44.3
Plt Count 128 L
PT 29.2 H
INR 2.71
Sodium 143
Potassium 3.8
Chloride 108 H
Carbon Dioxide 31 H
BUN 36 H
Creatinine 1.0
Glucose 113 H
Calcium 8.7
Total Bilirubin 1.7 H
AST 40 H
ALT 38 H
Alkaline Phosphatase 170 H
Vital Signs:
Vital Signs
Temp Pulse Resp BP Pulse Ox
98.0 F 80 16 120/69 96
02/24/25 03:26 02/24/25 08:07 02/24/25 08:07 02/24/25 03:27 02/24/25 08:07
I&O
02/23/25 02/24/25 02/25/25
06:59 06:59 06:59
Intake Total 720 / 720 420 / 420
Output Total 300 / 300 2875 / 2875
Balance 420 / 420 -2455 / -2455
Review of Systems
-
History Source: Patient
All other systems: Reviewed and negative
Cardiac: Denies Orthopnea
Musculoskeletal: Reports Joint Swelling (baseline)
Physical Exam
-
General: No Apparent Distress and Comfortable
HEENT: Normocephalic, Atraumatic, Moist Mucous Membranes and Other (1L NC)
Respiratory: Clear to Auscultation and Non Labored Respirations
Cardiac: Regular Rhythm, S1/S2 and Murmur
GI: Soft and Nontender
Musculoskeletal: Edema, Left Lower Extrem (1+, pt reports baseline); Negative Edema, Right Lower Extrem
Skin: Warm and Dry
Neuro: Awake and Alert
Psych: Calm
[2025-02-24] MEDS: KCL 20 MEQ PO (08:59)
[2025-02-24] MEDS: LOPRESSOR 25 MG PO ×2 (08:59→19:53)
[2025-02-24] MEDS: ASPIR LOW (ENTERIC COATED) 81 MG PO (09:00)
[2025-02-24] MEDS: NEURONTIN 300 MG PO ×2 (09:00→19:53)
[2025-02-24] MEDS: PACERONE 100 MG PO (09:00)
[2025-02-24] MEDS: LIPITOR 20 MG PO (09:00)
[2025-02-24] MEDS: LIDOCAINE 4% PATCH 1 PATCH TOPICAL (09:01)
[2025-02-24] MEDS: LASIX 60 MG IV ×2 (09:01→16:08)
[2025-02-24] MEDS: TYLENOL 650 MG PO ×3 (09:10→23:33)
--- NOTE | 2025-02-24 09:30 | PTCARENOTE ---
Pt 85-88% on room air at rest with resp rate of 20 and occasional non productive cough. Pt seen by , she is adamant that she feels better, back to her baseline and does NOT want home oxygen.
--- NOTE | 2025-02-24 10:34 | CM ---
Reviewed chart Met with Miss. Ortiz to review discharge plans. She states she is feeling better. We reviewed VNA Services. She states she does not feel she will need VNA Services. Prior to admission she resides alone in a second floor
walk-up apartment. She has twelve steps to get to her apartment. Prior to admission she was independent with ambulation and adls. She not have any DME in the home. She does not have a prescription plan. Will need to see her current functional
level to see if she will have any skilled care needs. Medial work-up in progress. The discharge plan is to return home when medically stable.
[2025-02-24] MEDS: COUMADIN 2.5 MG PO (17:59)
[2025-02-24] MEDS: MIRALAX 17 GRAMS PO (18:31)
[2025-02-24] MEDS: COLACE 100 MG PO (18:31)
--- NOTE | 2025-02-24 19:10 | PTCARENOTE ---
Pt walking in halls with a gimping gait due to her left knee issues. Some improvement wearing her own shoes and and raymond wrap to her left knee. Pt is extremely determined to do all her ADL's independently. She declines any assistance but is at risk
to fall. Pt encouraged to get a fall bracelet /necklace for home use which she agrees would be helpful. Pt is oriented X3, on fall precautions, will monitor closely. Telemetry shows atrial fib .
[2025-02-24] MEDS: REMOVE LIDOCAINE PATCH REMOVE (20:02)
--- NOTE | 2025-02-24 23:57 | PTCARENOTE ---
Rec'd pt at change of shift. Pt AAO*3, VSS, and Afib on TELE monitor. Pt reports discomfort in the L knee and given PRN tylenol as ordered. PT given education on fluid restriction and measuring output. Pt now resting with call burris in reach. See
MAr and flowchart for full pt care and assessment.
[2025-02-25] VITALS (7 sets, daily range): BP systolic 98–117; BP diastolic 57–77; BMI 29.0
[2025-02-25 04:08] LABS: Hematocrit 47.5 % (37.0-47.0); Hemoglobin 14.0 g/dL (12.0-16.0); Mean Corp Hgb Conc. 29.5 g/dL (33.0-37.0); Mean Corpuscular Volume 92.6 fL (81.0-99.0); Platelet Count 132 10^3/uL (130-400); Red Cell Dist. Width 17.3 % (11.5-14.5)
[2025-02-25 04:21] LABS: INR 2.63; PT 28.5 Sec (11.4-14.6)
[2025-02-25 04:36] LABS: ALT (SGPT) 36 U/L (0-35); AST (SGOT) 39 U/L (14-36); Albumin 3.9 g/dl (3.5-5.0); Alkaline Phosphatase 188 U/L (38-126); Blood Urea Nitrogen 38 mg/dl (7-17); Calcium 9.0 mg/dl (8.4-10.2); Carbon Dioxide 31 mmol/L (22-30); Chloride 103 mmol/L (98-107); Estimated Creatinine Clearance 38 ml/min; Glucose 131 mg/dl (70-99); Potassium 4.6 mmol/L (3.5-5.1); Sodium 142 mmol/L (135-145); Total Protein 6.7 g/dl (6.3-8.2); eGFR 51.43
[2025-02-25] MEDS: ADVAIR HFA 115/21 MCG INHALER 2 PUFF INH ×2 (07:39→19:42)
--- NOTE | 2025-02-25 09:01 | W.PN.HOSP.TC ---
Addendum entered and electronically signed by Narcisa Moore MD 02/25/25 13:58:
o��� Acute on chronic diastolic CHF
o��� Persistent atrial fibrillation
Addendum entered and electronically signed by Narcisa Moore MD 02/25/25 12:06:
Attending�addendum:
I�saw�and�evaluated�the�patient.�I�reviewed�the�resident�s�note�and�agree�with�findings�and�plan�as�documented�in�the�resident�s�note.��
Patient seen and examined at bedside, denies any chest pain , shortness of breath Improved.
will be discharged home.
Physical�exam:
GENERAL : Patient is awake, alert, oriented x3
HEENT: Nonicteric sclerae, PERRLA, EOMI. Oropharynx clear. Moist mucous membranes. Conjunctivae appear well perfused.
CHEST: Chest wall is nontender.
HEART: Irregular rate and rhythm without murmurs.
LUNGS: rales bilaterally.
ABDOMEN: Soft, positive bowel sounds, nontender, no organomegaly.
RECTAL: Deferred.
MUSCLES/EXTREMITIES: No abnormal range of motion, no swelling.SKIN: No rash, no excessive bruising, petechiae, or purpura.
NEUROLOGIC: Cranial nerves II-XII intact without motor/sensory deficit.
�
Assessment/plan:
Acute diastolic CHF.
Continue Lasix.
Hold Camzyos-resume on discharge
Acute hypoxic respiratory failure.
Weaned oxygen.
Patient refusing home oxygen.
Persistent A-fib.
Continue warfarin and amiodarone
CODE STATUS: Full code
DVT prophylaxis: Warfarin
Diet: Cardiac diet
Disposition:discharge home today
�
Total time spent on today�s encounter was 55 minutes which included time spent in counseling the patient/family regarding diagnosis and treatment plan as listed above, goals of care, and symptom management. Case was discussed with nursing staff,
specialists, and care coordinators/case management. All labs and imaging personally reviewed by me. Remainder the time spent in detailed review of previous records, lab data, imaging, and other medical provider documentation.
Original Note:
Today's Communication/Plan
-
Plan reviewed with attending
Per cardiology, restarting camzyos slowly with close follow up.
Eval for home oxygen
Discharge today pending cardiology recommendations
Assessment / Plan
Assessment / Plan
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
leg swelling correlated to when her camzyos dose was increased a few days ago.
Camzyos was held on admission. Pt reports resolved symptoms. Her only complaint is hand tremors she associated with low K. We will replete her K goal 4, currently 3.4.
AFVSS in afib rate controlled. On 2L NC. Cardiology following. Pending cardiology recs for resuming camzyos. Continue all other cardiac related home medications.
AFVSS, continuing to hold camzyos per cardiology recs. Pt correlates her tremors with starting gabapentin but desires to continue taking it since it helps with her leg cramps. Pt denies SOB or leg swelling worse than baseline. Continues on diuretics
per cardiology. Possible dc today pending SOB and saturation, still reliant on oxygen.
AFVSS. Pt is saturating 90% room air, sitting comfortably. She reports feeling back to baseline except for constipation. Denies SOB, lightheadedness, dizziness. Per cardiology, plan to restart camzyos and follow up closely with Saul Noel
business support administrator.
Echo: 1. Small left ventricle with severe LVH and asymmetric septal hypertrophy, EF 67%, without obvious LVOT gradient.
2. Transcatheter mitral valve replacement within previous surgical mitral valve replacement, peak/mean gradient 22/11 mmHg, no mitral regurgitation and dilated left atrium.
3. Aortic sclerosis with mild to moderate aortic regurgitation.
4. Dilated right heart with right ventricular hypokinesis, severe tricuspid regurgitation, and severe pulmonary hypertension, pulmonary artery systolic pressure 74 mmHg.
5. A transesophageal echo January 20, 2025 showed an EF of 55 to 60% with a small left ventricle, severe LVH, dilated and hypokinetic right ventricle, aortic sclerosis with mild to moderate aortic regurgitation, well-seated transcatheter mitral
valve replacement within a bioprosthetic mitral valve and suspected left atrial appendage thrombus.
#HOCM
#acute respiratory failure
- on 1L NC. Not on home O2. Continue home breathing treatments.
- Hold camzyos per cardiology. Plan to restart today
#HFpEF
- Echo
- Continue home lasix
#persistent afib
- continue home amiodarone
- Continue home warfarin
#chronic knee pain
- continue home gabapentin and lidocaine patch
#constipation
- bowel regimen
Anticipated Discharge: Today
Subjective/Interval History
-
Date of Service: February 25, 2025
Pt reports feeling well this morning with no SOB on room air. She complains of constipation but no other respiratory or cardiac complaints from when she presented.
Objective Data
-
Labs:
Laboratory Results
02/25/25
03:34
WBC 6.6
Hgb 14.0
Hct 47.5 H
Plt Count 132
PT 28.5 H
INR 2.63
Sodium 142
Potassium 4.6
Chloride 103
Carbon Dioxide 31 H
BUN 38 H
Creatinine 1.1 H
Glucose 131 H
Calcium 9.0
Total Bilirubin 1.9 H
AST 39 H
ALT 36 H
Alkaline Phosphatase 188 H
Vital Signs:
Vital Signs
Temp Pulse Resp BP Pulse Ox
97.6 F 95 16 102/68 90
02/25/25 08:25 02/25/25 08:25 02/25/25 08:25 02/25/25 03:27 02/25/25 08:25
I&O
02/24/25 02/25/25 02/26/25
06:59 06:59 06:59
Intake Total 420 / 420 880 / 880
Output Total 2875 / 2875 1999 / 1999
Balance -2455 / -2455 -1120 / -1120
Review of Systems
-
History Source: Patient
All other systems: Reviewed and negative
Physical Exam
-
General: No Apparent Distress and Comfortable
HEENT: Normocephalic, Atraumatic and Moist Mucous Membranes
Respiratory: Clear to Auscultation and Non Labored Respirations (on room air)
Cardiac: Regular Rhythm, S1/S2 and Murmur
GI: Soft and Nontender
Musculoskeletal: Edema, Left Lower Extrem (1+, pt reports baseline); Negative Edema, Right Lower Extrem
Skin: Warm and Dry
Neuro: Awake and Alert
Psych: Calm
[2025-02-25] MEDS: LIDOCAINE 4% PATCH 1 PATCH TOPICAL (09:27)
[2025-02-25] MEDS: NEURONTIN 300 MG PO ×2 (09:28→19:56)
[2025-02-25] MEDS: PACERONE 100 MG PO (09:28)
[2025-02-25] MEDS: ASPIR LOW (ENTERIC COATED) 81 MG PO (09:28)
[2025-02-25] MEDS: LIPITOR 20 MG PO (09:28)
[2025-02-25] MEDS: CITROMA 300 ML PO (09:29)
[2025-02-25] MEDS: LASIX 60 MG IV (09:29)
[2025-02-25] MEDS: LOPRESSOR 25 MG PO ×2 (09:29→19:56)
[2025-02-25] MEDS: TYLENOL 650 MG PO (09:31)
--- NOTE | 2025-02-25 10:29 | W.PN.CARDCBS ---
Addendum entered and electronically signed by Maximus Christopher MD 02/25/25 12:53:
I saw and examined the patient.
The Transformer Mechanic's note was reviewed and I agree with the note.
Comment: Briefly, 71-year-old woman past medical history of hypertrophic cardiomyopathy, heart failure with preserved ejection fraction, mitral valve repair, persistent atrial fibrillation/flutter who presented in acute decompensated heart failure.
With IV diuresis her volume status has significantly improved and appears nearly euvolemic on exam and has been weaned off O2
Creatinine is near her baseline of 1.1 today
Plan to transition to p.o. Lasix 60 mg twice daily and continue on discharge
Discussed compression stockings
Camzyos was held and will be reintroduced based on recommendations from her [facility] cuff slitter
Stable for discharge from my perspective
Close cardiology follow-up has been arranged
Original Note:
Today's Communication / Plan
-
repeat eval for home O2/amb pulse ox
tubigrip stockings
camzyos 10mg daily recommended by Dr. Pat's office. patient states she will take 2 days of 5mg then increase back to 10mg daily as she has gotten sick in the past with going right back to 10mg after being off for several days
likely DC on po lasix 60mg BID
Op cardiac follow up arranged
Impression / Plan
-
PCP: Antonieta Clark MD
CDY: Yahaira Evans MD locally and Dr. Pat at [facility] ([phone])
Assessment:
Presentation with SOB 02/22/2025
Acute on chronic HFpEF
Mitral valve disease
s/p bioprosthetic mitral valve replacement 2014
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
Spontaneous echo contrast in the left atrium and definite thrombus in the MARIANELA by YUE 08/13/2024
No longer evidence of MARIANELA thrombus on repeat YUE 10/06/2024
Spontaneous echo to contrast again in the LA with concern for possible MARIANELA thrombus by YUE 01/20/2025
Eliquis transitioned to warfarin for LA smoke by YUE 08/13/24
Paroxysmal atrial fibrillation
s/p PVI 04/2023
planned for repeat PVI with PFA 03/16/25
HCM, severe concentric LVH, on Camzyos, dosing changes managed at [facility]
PHTN
s/p RHC at [facility] 12/2023
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
Mild , peak to peak gradient 11 mmHg by cath at [facility] 07/29/24
h/o endocarditis
Hypertension
Hyperlipidemia
COPD
YUE 08/13/24: [facility] at [place] study, EF 65%, moderately dilated RV with mild RV hypokinesis, severely dilated LA with evidence of spontaneous echo contrast and definite MARIANELA thrombus, bioprosthetic mitral valve with marked thickening and
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
YUE 10/06/2024: EF 60 to 65%, severe concentric LVH, mildly dilated RV and mildly reduced RV systolic function, some spontaneous echo contrast seen in the left atrial cavity, but no left atrial appendage thrombus, bioprosthetic mitral valve with
significant thickening and calcification, restricted leaflet motion and the valve visually appears to have moderate to severe stenosis, mean mitral valve gradient 11 mmHg, moderate to severe MR with flow coming into the left atrial appendage, mild
to moderate aortic regurgitation, moderate TR
YUE 01/20/25: EF 55 to 60%, severe LVH, aortic sclerosis, mild to moderate AR, well-seated bioprosthetic valve in mitral position with mean mitral gradient 6 mmHg, no MR, again spontaneous echo contrast and possible thrombus in left atrial appendage
Echo 02/22/2025: EF 67% without obvious LVOT gradient, s/p TMVR with previous surgical MVR peak/mean 22/11 mmHg, no MR, mild to moderate aortic regurgitation, dilated RV with hypokinesis, severe TR with PAP 74 mmHg
Plan:
- Patient had tissue MVR in 2014 and then developed bioprosthetic mitral stenosis leading to T MVR performed at [facility] on 10/15/2024. Patient also follows with Dr. Pat at [facility] for HCM and is chronically on Camzyos managed by their office. Patient
reports Camzyos dose was increased from 5 mg daily to 10 mg daily last week coinciding with symptoms of SOB, LE edema and weight gain leading to acute HFpEF admission 02/22/2025.
- Main complaint this morning is constipation. Received mag citrate
- Weight up overnight, but suspect inaccurate as I&O negative. Previous dry weight of 149 pounds. Remains on IV Lasix 60 mg twice daily. Was taking p.o. Lasix 60 mg twice daily prior to admission
- Creatinine stable at 1.1
- Eval for home O2, yesterday O2 sat dropped with ambulation
- EF preserved at 67% on echo
- Acute HF symptoms correlated with uptitration in Camzyos dose to 10 mg daily last week, this was reportedly in response to increased LVOT gradient which is no longer seen on echo from 02/22/2025. Camzyos currently on hold. We discussed with "Vlad"Bi's office 02/24 with plan to continue 10 mg daily. Patient reports she will take 2 days of 5 mg and then go up to 10 mg daily as in the past after being off of it for several days and going right back to 10 mg, she states she gets sick
again.
- TMVR stable by echo 02/22/2025
- Patient remains in persistent A-fib, but HR adequately controlled with Lopressor 25 mg BID.
- INR therapeutic at 2.63 on labs reviewed by me 02/25/2025. INR goal is 2-3. INRs managed by cardiology office with draws at [facility].
- Patient previously had spontaneous echo contrast in the LA with definite thrombus in the MARIANELA by YUE 08/13/2024. On repeat YUE 09/28/2024 there is no longer evidence of MARIANELA thrombus. Most recently however, patient had YUE 01/20/2025 that showed
spontaneous echo contrast again in the LA with concern for possible MARIANELA thrombus and planned CV was aborted.
- Patient for planned PVI 03/16/2025. Patient is missing previously scheduled PAT appointment on 02/24/2025, we have ordered the type+screen that she would have needed to complete as an outpatient, other labs were already completed as part of this
admission. Cardiology is also working on completing the obligatory H&P for the 03/16/2025 admission. Patient will need to have her outpatient preablation CT scan rescheduled and the cardiology office is working on this.
- Plan for DC to home today
- OP cardiac follow up arranged
HPI: Elizabeth is well-known to our practice. She comes to the emergency room for progressive shortness of breath. She has a history of a tissue MVR from 2014 then determined to have prosthetic MV stenosis and underwent TMVR at [facility] 10/15/24.
She has paroxysmal atrial fibrillation, and was noted to have concern for evidence of thrombus in her left atrial appendage by prior YUE so was transitioned from Eliquis to warfarin. Post TMVR she was planned for YUE/cardioversion, however YUE
showed continued evidence of 'sludge' in left atrial appendage and cardioversion was deferred. She has been maintained on Lopressor 25 mg twice daily as well as amiodarone 200 mg daily. She also has history of HOCM and was restarted on camzyos
after her TMVR. She had been tolerating 5mg dosing and last week dosage was increased to 10mg daily. She reports seemingly correlated to this she has noted SOB, orthopnea, LE edema, and weight gain. She has been compliant with po lasix 60mg BID as
OP. ProBNP 7090. She has PAF s/p PVI 04/2023 and is planned for YUE/redo PVI 03/16/[address] Jon Evans. Cardiology consulted for mgmt of acute CHF. 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
Subjective
Date of Service: February 25, 2025
feeling well. main complaint constipation
Objective
Labs:
02/25/25 03:34
02/25/25 03:34
Labs
Hgb 14.0 g/dL (12.0-16.0) 02/25/25 03:34
Hct 47.5 % (37.0-47.0) H 02/25/25 03:34
Plt Count 132 10^3/uL (130-400) 02/25/25 03:34
PT 28.5 Sec (11.4-14.6) H 02/25/25 03:34
INR 2.63 02/25/25 03:34
APTT 43.6 Sec (23.4-35.0) H 02/23/25 03:55
Sodium 142 mmol/L (135-145) 02/25/25 03:34
Potassium 4.6 mmol/L (3.5-5.1) 02/25/25 03:34
BUN 38 mg/dl (7-17) H 02/25/25 03:34
Creatinine 1.1 mg/dL (0.6-1.0) H 02/25/25 03:34
Glucose 131 mg/dl (70-99) H 02/25/25 03:34
Vital Signs and I&O:
Vital Signs
Temp Pulse Resp BP Pulse Ox
97.6 F 100 16 98/57 90
02/25/25 08:25 02/25/25 09:00 02/25/25 08:25 02/25/25 08:27 02/25/25 09:23
Vital Signs
Temp Pulse Resp BP Pulse Ox
97.6 F 100 16 98/57 90
02/25/25 08:25 02/25/25 09:00 02/25/25 08:25 02/25/25 08:27 02/25/25 09:23
Intake & Output
02/23/25 02/24/25 02/25/25 02/26/25
07:59 07:59 07:59 07:59
Intake Total 720 / 720 420 / 420 880 / 880
Output Total 300 / 300 2875 / 2875 1999 / 1999
Balance 420 / 420 -2455 / -2455 -1120 / -1120
Physical Exam
Physical Exam
GEN: No distress, awake, alert, oriented x3. sitting in chair
HEENT: supple, anicteric, mmm, eomi
LUNGS: CTA B/L, no wheezes/rales
CV: Irreg, S1/S2, 1/6 murmur
ABD: soft, BS+, NT/ND
EXT: No cyanosis, clubbing. trace of B/L LEedema
NEURO: Gross non-focal
SKIN: Warm, pink, dry. No rash
--- NOTE | 2025-02-25 10:40 | CM ---
Reviewed chart. Met with Mrs. Ortiz to review discharge plans. She states she is feeling well and maybe able to go home soon. We reviewed VNA Services. She states she does not feel she will need VNA Services. Prior to admission she resides
alone in a second floor walk-up apartment. She has twelve steps to get to her apartment. Prior to admission she was independent with ambulation and adls. She not have any DME in the home. She does not have a prescription plan. Will need to see
her current functional level to see if she will have any skilled care needs. Medial work-up in progress. The discharge plan is to return home when medically stable.
--- NOTE | 2025-02-25 12:40 | PN.CDI ---
CDI
- -
CDI:
Physician Documentation Request
Admit Date: 02/22/25 15:41
Dear Doctor Darlyn,
Patient admitted with diastolic CHF.
02/25 PN,'Persistent A-fib....Continue warfarin and amiodarone.'
02/25 Cardiology note, 'Paroxysmal atrial fibrillation ....s/p PVI 04/2023....planned for repeat PVI with PFA 03/16/25.'
Due to potentially conflicting documentation, please clarify in your note the current type of atrial fibrillation being evaluated, monitored and/ or treated:
Paroxysmal atrial fibrillation - terminates spontaneously or with intervention within 7 days of onset
Persistent atrial fibrillation - episodes of continuous AF that last more than 7 days and do not self-terminate
Other
Use of terms such as suspected, likely, concern for, or probable (associated with a specific diagnosis that is being evaluated, monitored, or treated as if it exists) are acceptable and can be coded in the inpatient setting, when documented at the
time of discharge.
Thank you,
Cailin TOLEDO,RN,CCDS
CDI Specialist
Available via [place] text
Please use your independent medical judgment in providing your response.
--- NOTE | 2025-02-25 13:08 | PN.CDI ---
CDI
- -
CDI:
Physician Documentation Request
Admit Date: 02/22/25 15:41
Dear Doctor,
Dear Doctor Darlyn,
Patient admitted with diastolic CHF.
02/25 PN,'Acute diastolic CHF....Continue Lasix....Hold Camzyos-resume on discharge
02/25 Cardiology note, 'Acute on chronic HFpEF.'
Due to potentially conflicting documentation, please clarify which of the following accurately represents the acuity of the diastolic CHF:
Acute diastolic CHF
Acute on chronic diastolic CHF
Other
Use of terms such as suspected, likely, concern for, or probable (associated with a specific diagnosis that is being evaluated, monitored, or treated as if it exists) are acceptable and can be coded in the inpatient setting, when documented at the
time of discharge.
Thank you,
Cailin TOLEDO,RN,CCDS
CDI Specialist
Available via [place] text
Please use your independent medical judgment in providing your response.
--- NOTE | 2025-02-25 14:19 | W.DCSUMMARY ---
Addendum entered and electronically signed by Narcisa Moore MD 02/26/25 10:37:
Discharge Data
Date of Admission: 02/22/25
Date of Discharge: 02/26/25
Patient supposed to be discharged 02/25 but stayed overnight for constipation, patient had large bowel movement and will be discharged home today.
Addendum entered and electronically signed by Narcisa Moore MD 02/25/25 14:30:
Attending�addendum:
I�saw�and�evaluated�the�patient.�I�reviewed�the�resident�s�note�and�agree�with�findings�and�plan�as�documented�in�the�resident�s�note.��
Patient seen and examined at bedside, denies any chest pain , shortness of breath Improved.
will be discharged home.
Physical�exam:
GENERAL : Patient is awake, alert, oriented x3
HEENT: Nonicteric sclerae, PERRLA, EOMI. Oropharynx clear. Moist mucous membranes. Conjunctivae appear well perfused.
CHEST: Chest wall is nontender.
HEART: Irregular rate and rhythm without murmurs.
LUNGS: rales bilaterally.
ABDOMEN: Soft, positive bowel sounds, nontender, no organomegaly.
RECTAL: Deferred.
MUSCLES/EXTREMITIES: No abnormal range of motion, no swelling.SKIN: No rash, no excessive bruising, petechiae, or purpura.
NEUROLOGIC: Cranial nerves II-XII intact without motor/sensory deficit.
�
Assessment/plan:
Acute on chronic diastolic CHF
Continue Lasix.
Hold Camzyos-resume on discharge
Acute hypoxic respiratory failure.
Weaned oxygen.
Patient refusing home oxygen.
�� Persistent atrial fibrillation
Continue warfarin and amiodarone
CODE STATUS: Full code
DVT prophylaxis: Warfarin
Diet: Cardiac diet
Disposition:discharge home today
�
Total time spent on today�s encounter was 55 minutes which included time spent in counseling the patient/family regarding diagnosis and treatment plan as listed above, goals of care, and symptom management. Case was discussed with nursing staff,
specialists, and care coordinators/case management. All labs and imaging personally reviewed by me. Remainder the time spent in detailed review of previous records, lab data, imaging, and other medical provider documentation.
Original Note:
Documented by User: Sridevi Santizo MD, Resident 02/25/25 14:23
Discharge Summary
Discharge Data
Date of Admission: 02/22/25
Date of Discharge: 02/25/25
-
Pending Results: No
Hospital Course
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
leg swelling correlated to when her camzyos dose was increased a few days ago concerning for acute on chronic HFpEF.
02/23 Camzyos was held on admission. Pt reports resolved symptoms. Her only complaint is hand tremors she associated with low K. We will replete her K goal 4, currently 3.4. AFVSS in afib rate controlled. On 2L NC. Cardiology following. Pending
cardiology recs for resuming camzyos. Continue all other cardiac related home medications. IV lasix.
02/24 AFVSS on 1L NC, continuing to hold camzyos per cardiology recs. Pt correlates her tremors with starting gabapentin but desires to continue taking it since it helps with her leg cramps. Pt denies SOB or leg swelling worse than baseline.
Continues on diuretics per cardiology. Possible dc today pending SOB and saturation, still reliant on oxygen. Weight down 11lbs from admission. Continue diuresis. Started bowel regimen.
02/25 AFVSS. Pt is saturating 90% room air, sitting comfortably. She reports feeling back to baseline except for constipation. Denies SOB, lightheadedness, dizziness. Per cardiology, plan to restart camzyos and follow up closely with Saul Noel
supervisor decorating.
Echo: 1. Small left ventricle with severe LVH and asymmetric septal hypertrophy, EF 67%, without obvious LVOT gradient.
2. Transcatheter mitral valve replacement within previous surgical mitral valve replacement, peak/mean gradient 22/11 mmHg, no mitral regurgitation and dilated left atrium.
3. Aortic sclerosis with mild to moderate aortic regurgitation.
4. Dilated right heart with right ventricular hypokinesis, severe tricuspid regurgitation, and severe pulmonary hypertension, pulmonary artery systolic pressure 74 mmHg.
5. A transesophageal echo January 20, 2025 showed an EF of 55 to 60% with a small left ventricle, severe LVH, dilated and hypokinetic right ventricle, aortic sclerosis with mild to moderate aortic regurgitation, well-seated transcatheter mitral
valve replacement within a bioprosthetic mitral valve and suspected left atrial appendage thrombus.
Discharge Plan
-
Patient Disposition: Home (Routine Discharge)
Discharge Diagnosis/Procedures: Acute heart failure with a preserved ejection fraction in the setting of uptitration of Camzyos therapy for hypertrophic cardiomyopathy, persistent atrial fibrillation
Condition: Good
Diet: 2 Gram Sodium and Restrict fluids to 64 oz
Activity: As tolerated
Driving Restrictions: As prior to admission
Bathing Restrictions: None
Blood Work: - INR in 1 week, your INR was 2.71 on 02/24/2025
Others Tests: - You are scheduled for your preablation CT scan on 03/04/2025 at 12:40 PM. You should have nothing to eat or drink for 3 hours prior to that test. [facility], the same building that you were just
admitted in, where preadmission testing is located on the first floor and they will take care of registering you and transporting you for your CT scan.
Specialty Instructions: Weigh Daily- Call MD for wt gain/loss 3 lbs overnight/5 lbs in 1 week
Instructions: *DCA Heart Failure Instructions
Referrals:
Ignacio Pat MD [Non-Admitting Privileges, Cardiology]
Referral Note: Your cardiology team here at [facility] called and talked with Dr. Pat's office and they want you to continue with Camzyos at 10 mg daily, they are going to call you tomorrow or Friday to come to their
office for another echo in the next 2 weeks.
Yahaira Evans MD [Active, Cardiology] - 02/28/25 9:00 am
Referral Note: You have an appointment to see Dr. Yahaira Evans's nurse practitioner, Amparo, at the [place] office on 02/28/2025 at 9 AM. Please call [phone] if you need to reschedule
Placido Evans MD [Active, Cardiology]
Referral Note: You are still scheduled for YUE and ablation with Dr. Evans on 03/16/2025, the cardiology office rescheduled your CT scan appointment for 03/04/2025 at 12:40 PM. You should have nothing to eat or drink for 3 hours prior to that
test.
Antonieta Clark MD [Non-Admitting Privileges, [facility]]
Additional Discharge Medication Instructions: - Continue with Camzyos [address] Pat's office
- Continue usual dose of Lasix 60 mg twice daily
- Continue usual dose of amiodarone 200 mg once a day
- Continue your usual dose of warfarin (Coumadin) 2.5 mg daily, the Coumadin clinic at Dr. Evans's office was updated. Please check INR in 1 week. The Coumadin Clinic will call you with INR and any changes in Coumadin dosing.
Prescriptions:
New
amiodarone 200 mg tablet
200 mg PO DAILY Qty: 30 0RF
Continued
atorvastatin [Lipitor] 20 mg Tablet
20 mg PO DAILY
warfarin [Jantoven] 2 mg tablet
2.5 mg PO QPM
aspirin [Aspir-Low] 81 mg Tablet,Delayed Release (Dr/Ec)
81 mg PO DAILY
furosemide 20 mg Tablet
60 mg PO BID
metoprolol tartrate 25 mg tablet
25 mg PO BID
Changed
Camzyos 5 mg Capsule
10 mg PO DAILY Qty: 30 0RF
No Action
albuterol sulfate [Ventolin HFA] 90 MCG/PUFF HFA aerosol inhaler
2 puff inhalation R TIDPRN PRN (Reason: SOB)
fluticasone propion-salmeterol 113-14 mcg/actuation aerosol powdr breath activated
2 inh INHALATION R BID
acetaminophen [Tylenol] 325 mg Tablet
650 mg PO Q4HPRN PRN (Reason: MILD PAIN)
ascorbic acid (vitamin C) [Vitamin C] 500 mg Tablet
1,000 mg PO DAILY
gabapentin 300 mg capsule
300 mg PO BID
Discharge Orders:
Discharge Patient (As Directed); Ordered 02/25/25
Ordered By: Sridevi Santizo
Care Plan Goals
Care Plan Goals:
Problem: Readiness for enhanced knowledge related to diagnosis and treatment plan
Goal: Understand your diagnosis and treatment plan needs, including medications if applicable.
Instructions: Know your diagnosis, underlying causes and treatment plan options, including medications if applicable. Consult with your health care team to learn about your diagnosis and treatment plan, including medications if applicable.
Discharge Date and Time
Print Language: GRENADIAN

Documented by User: Narcisa Moore MD 02/25/25 14:28
Discharge Summary
Discharge Data
Date of Admission: 02/22/25
Date of Discharge: 02/25/25
Discharge Plan
-
Patient Disposition: Home (Routine Discharge)
Discharge Diagnosis/Procedures: Acute heart failure with a preserved ejection fraction in the setting of uptitration of Camzyos therapy for hypertrophic cardiomyopathy, persistent atrial fibrillation
Condition: Good
Diet: 2 Gram Sodium and Restrict fluids to 64 oz
Activity: As tolerated
Driving Restrictions: As prior to admission
Bathing Restrictions: None
Blood Work: - INR in 1 week, your INR was 2.71 on 02/24/2025
Others Tests: - You are scheduled for your preablation CT scan on 03/04/2025 at 12:40 PM. You should have nothing to eat or drink for 3 hours prior to that test. Please arrive at [facility], the same building that you were just
admitted in, where preadmission testing is located on the first floor and they will take care of registering you and transporting you for your CT scan.
Specialty Instructions: Weigh Daily- Call MD for wt gain/loss 3 lbs overnight/5 lbs in 1 week
Instructions: *DCA Heart Failure Instructions
Referrals:
Ignacio Pat MD [Non-Admitting Privileges, Cardiology]
Referral Note: Your cardiology team here at [facility] called and talked with Dr. Pat's office and they want you to continue with Camzyos at 10 mg daily, they are going to call you tomorrow or Friday to come to their
office for another echo in the next 2 weeks.
Yahaira Evans MD [Active, Cardiology] - 02/28/25 9:00 am
Referral Note: You have an appointment to see Dr. Yahaira Evans's nurse practitioner, Amparo, at the [place] office on 02/28/2025 at 9 AM. Please call [phone] if you need to reschedule
Placido Evans MD [Active, Cardiology]
Referral Note: You are still scheduled for YUE and ablation with Dr. Evans on 03/16/2025, the cardiology office rescheduled your CT scan appointment for 03/04/2025 at 12:40 PM. You should have nothing to eat or drink for 3 hours prior to that
test.
Antonieta Clark MD [Non-Admitting Privileges, Family Practice]
Additional Discharge Medication Instructions: - Continue with Camzyos [address] Pat's office
- Continue usual dose of Lasix 60 mg twice daily
- Continue usual dose of amiodarone 200 mg once a day
- Continue your usual dose of warfarin (Coumadin) 2.5 mg daily, the Coumadin clinic at Dr. Evans's office was updated. Please check INR in 1 week. The [facility]in Clinic will call you with INR and any changes in Coumadin dosing.
Prescriptions:
New
amiodarone 200 mg tablet
200 mg PO DAILY Qty: 30 0RF
Continued
atorvastatin [Lipitor] 20 mg Tablet
20 mg PO DAILY
warfarin [Jantoven] 2 mg tablet
2.5 mg PO QPM
aspirin [Aspir-Low] 81 mg Tablet,Delayed Release (Dr/Ec)
81 mg PO DAILY
furosemide 20 mg Tablet
60 mg PO BID
metoprolol tartrate 25 mg tablet
25 mg PO BID
Changed
Camzyos 5 mg Capsule
10 mg PO DAILY Qty: 30 0RF
No Action
albuterol sulfate [Ventolin HFA] 90 MCG/PUFF HFA aerosol inhaler
2 puff inhalation R TIDPRN PRN (Reason: SOB)
fluticasone propion-salmeterol 113-14 mcg/actuation aerosol powdr breath activated
2 inh INHALATION R BID
acetaminophen [Tylenol] 325 mg Tablet
650 mg PO Q4HPRN PRN (Reason: MILD PAIN)
ascorbic acid (vitamin C) [Vitamin C] 500 mg Tablet
1,000 mg PO DAILY
gabapentin 300 mg capsule
300 mg PO BID
Discharge Orders:
Discharge Patient (As Directed); Ordered 02/25/25
Ordered By: Sridevi Santizo
Care Plan Goals
Care Plan Goals:
Problem: Readiness for enhanced knowledge related to diagnosis and treatment plan
Goal: Understand your diagnosis and treatment plan needs, including medications if applicable.
Instructions: Know your diagnosis, underlying causes and treatment plan options, including medications if applicable. Consult with your health care team to learn about your diagnosis and treatment plan, including medications if applicable.
Discharge Date and Time
Print Language: GRENADIAN
--- NOTE | 2025-02-25 14:39 | W.HF.CON ---
Heart Failure
- LV Function
Left ventricular function study result: LV Ejection fraction >/= 50%
Ejection Fraction Percentage: 67
- ARNI
Patient already on ARNI: No
Heart Failure ARNI Not Indicated: LV Ejection Fraction >/= 40%
- ACEI/ARB
Patient already on ACEI/ARB: No
Heart Failure ACEI/ARB Not Indicated: LV Ejection Fraction > 40%
- Beta Markus
Patient already on Evidence Based Beta Markus: No
Heart Failure Evidence Based Beta Markus Not Indicated: LV Ejection Fraction > 40%
- Mineralocorticord Receptor Antagonist
Patient already on MRA: No
Heart Failure MRA Not Indicated: LV Ejection Fraction > 40%
- SGLT-2 Inhibitor
Patient already on SGLT-2 Inhibitor: No
Heart Failure SGLT-2 Inhibitor Not Indicated: LV Ejection Fraction >40%
- Afib Anticoagulation
Patient already on Anticoagulation for Afib: Yes
- NYHA CHF Classification
NYHA CHF Classification Level: Class III - Symptoms w/ min exertion, interferes w/ nml daily activity
- ACC/AHA Stage
ACC/AHA Stage: Stage C: Symptomatic Heart Failure
[2025-02-25] MEDS: LASIX IV (17:09)
[2025-02-25] MEDS: COUMADIN 2.5 MG PO (17:10)
[2025-02-25] MEDS: DULCOLAX 10 MG RECTAL (17:10)
--- NOTE | 2025-02-25 19:31 | PTCARENOTE ---
Pt seen by , plan was for discharge home today once she had a BM. Pt given magnesium citrate 300mls with no effect after several hours except to make pt feel miserable with cramps and abdominal discomfort. Dr.Rachel Santizo notified, pt
was given a milk and molasses enema which was difficult to insert due to hard stool blocking the tubing.Pt also given bicosadyl suppository and encouraged to drink more fluids by . Pt passed a very large amount of liquid brown stool and
stated she felt much better. Pt will stay overnight for observation. Pt is a fall risk and never calls for assistance, bed and chair alarms in place, pt being monitored closely. Telemetry shows atrial fib.
[2025-02-25] MEDS: REMOVE LIDOCAINE PATCH 1 PATCH REMOVE (19:57)
--- NOTE | 2025-02-25 23:51 | PTCARENOTE ---
Pt. in A-fib on the monitor, VSS. OOB with assist x 1 & RW to use BR; gait unsteady (bed alarm on as pt. does not ring for assist). No complaints of abd. pain or nausea, states she feels much better following BM earlier. RA pulse ox 90% - refuses
supplemental O2, does not feel short of breath. Pt. resting quietly, wants to go home in the morning.
[2025-02-26 03:09] VITALS: BP 113/59
[2025-02-26 03:30] LABS: Hematocrit 44.5 % (37.0-47.0); Hemoglobin 13.0 g/dL (12.0-16.0); Mean Corp Hgb Conc. 29.2 g/dL (33.0-37.0); Mean Corpuscular Volume 89.9 fL (81.0-99.0); Platelet Count 120 10^3/uL (130-400); Red Cell Dist. Width 17.2 % (11.5-14.5)
[2025-02-26 03:50] LABS: INR 2.48; PT 26.9 Sec (11.4-14.6)
[2025-02-26 03:54] LABS: ALT (SGPT) 32 U/L (0-35); AST (SGOT) 35 U/L (14-36); Albumin 3.5 g/dl (3.5-5.0); Alkaline Phosphatase 167 U/L (38-126); Blood Urea Nitrogen 34 mg/dl (7-17); Calcium 8.3 mg/dl (8.4-10.2); Carbon Dioxide 35 mmol/L (22-30); Chloride 101 mmol/L (98-107); Estimated Creatinine Clearance 41 ml/min; Glucose 141 mg/dl (70-99); Potassium 4.0 mmol/L (3.5-5.1); Sodium 139 mmol/L (135-145); Total Protein 6.1 g/dl (6.3-8.2); eGFR 57.66
[2025-02-26 05:54] VITALS: BMI 29.0
[2025-02-26 06:53] VITALS: BP 125/57
[2025-02-26] MEDS: ADVAIR HFA 115/21 MCG INHALER 2 PUFF INH (07:53)
[2025-02-26] MEDS: LIPITOR 20 MG PO (09:24)
[2025-02-26] MEDS: NEURONTIN 300 MG PO (09:24)
[2025-02-26] MEDS: LOPRESSOR 25 MG PO (09:25)
[2025-02-26] MEDS: PACERONE 100 MG PO (09:25)
[2025-02-26] MEDS: ASPIR LOW (ENTERIC COATED) 81 MG PO (09:25)
[2025-02-26] MEDS: LIDOCAINE 4% PATCH TOPICAL (09:26)
--- NOTE | 2025-02-26 10:37 | W.PN.HOSP.TC ---
Today's Communication/Plan
-
DC home
Assessment / Plan
Assessment / Plan
Impression:
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
leg swelling correlated to when her camzyos dose was increased a few days ago.
Camzyos was held on admission. Pt reports resolved symptoms. Her only complaint is hand tremors she associated with low K. We will replete her K goal 4, currently 3.4.
AFVSS in afib rate controlled. On 2L NC. Cardiology following. Pending cardiology recs for resuming camzyos. Continue all other cardiac related home medications.
AFVSS, continuing to hold camzyos per cardiology recs. Pt correlates her tremors with starting gabapentin but desires to continue taking it since it helps with her leg cramps. Pt denies SOB or leg swelling worse than baseline. Continues on diuretics
per cardiology. Possible dc today pending SOB and saturation, still reliant on oxygen.
AFVSS. Pt is saturating 90% room air, sitting comfortably. She reports feeling back to baseline except for constipation. Denies SOB, lightheadedness, dizziness. Per cardiology, plan to restart camzyos and follow up closely with Saul Noel
color weigher.
Echo: 1. Small left ventricle with severe LVH and asymmetric septal hypertrophy, EF 67%, without obvious LVOT gradient.
2. Transcatheter mitral valve replacement within previous surgical mitral valve replacement, peak/mean gradient 22/11 mmHg, no mitral regurgitation and dilated left atrium.
3. Aortic sclerosis with mild to moderate aortic regurgitation.
4. Dilated right heart with right ventricular hypokinesis, severe tricuspid regurgitation, and severe pulmonary hypertension, pulmonary artery systolic pressure 74 mmHg.
5. A transesophageal echo January 20, 2025 showed an EF of 55 to 60% with a small left ventricle, severe LVH, dilated and hypokinetic right ventricle, aortic sclerosis with mild to moderate aortic regurgitation, well-seated transcatheter mitral
valve replacement within a bioprosthetic mitral valve and suspected left atrial appendage thrombus.
Assessment/plan:
Acute hypoxic respiratory failure secondary to acute on chronic diastolic CHF
#HOCM
#acute respiratory failure
- on 1L NC. Not on home O2. Continue home breathing treatments.
- Hold camzyos per cardiology. Plan to restart today
Acute on chronic diastolic CHF
- Echo
- Continue home lasix
persistent afib
- continue home amiodarone
- Continue home warfarin
#chronic knee pain
- continue home gabapentin and lidocaine patch
#constipation
- bowel regimen-resolved
Abnormal labs:
Wounds:
CODE STATUS: Full code
DVT prophylaxis: Warfarin
Diet: Cardiac diet
Disposition: Discharge home today
Total time spent on today's encounter was 50 minutes which included time spent in counseling the patient/family regarding diagnosis and treatment plan as listed above, goals of care, and symptom management. Case was discussed with nursing staff,
specialists, and care coordinators/case management. All labs and imaging personally reviewed by me. Remainder the time spent in detailed review of previous records, lab data, imaging, and other medical provider documentation.
Anticipated Discharge: Today
Subjective/Interval History
-
Date of Service: February 26, 2025
Patient seen and examined at bedside, denies any chest pain or shortness of breath, feeling better after bowel movement.
Objective Data
-
Labs:
Laboratory Results
02/26/25
03:19
WBC 6.1
Hgb 13.0
Hct 44.5
Plt Count 120 L
PT 26.9 H
INR 2.48
Sodium 139
Potassium 4.0
Chloride 101
Carbon Dioxide 35 H
BUN 34 H
Creatinine 1.0
Glucose 141 H
Calcium 8.3 L
Total Bilirubin 1.9 H
AST 35
ALT 32
Alkaline Phosphatase 167 H
Vital Signs:
Vital Signs
Temp Pulse Resp BP Pulse Ox
98.4 F 113 16 125/57 95
02/26/25 03:10 02/26/25 09:00 02/26/25 07:58 02/26/25 06:53 02/26/25 09:58
I&O
02/25/25 02/26/25 02/27/25
06:59 06:59 06:59
Intake Total 880 / 880 660 / 660
Output Total 1999 / 1999 400 / 400
Balance -1120 / -1120 260 / 260
Physical Exam
-
General: Well Developed, Well Nourished, No Apparent Distress and Comfortable
HEENT: Normocephalic, Atraumatic, Moist Mucous Membranes, No Ptosis, PERRLA and Nose Appears Normal
Respiratory: Rales and Non Labored Respirations
Cardiac: S1/S2 and Irregular Rhythm
Breast: Deferred by me
GI: Soft, Nontender, Nondistended and Normal Bowel Sounds
Genito-urinary: No Costovertebral Tender
Musculoskeletal: No Clubbing, No Cyanosis and Edema, Left Lower Extrem
Skin: Warm
Neuro: Awake, Alert, Oriented, AO x 3 and No Motor Deficits
Psych: Calm
[2025-02-26 10:40] VITALS: BP 126/58
== END 2025-02-26 12:36 | disposition home or self-care (01) | DRG 291 ==
LOC: IVU 15:41
PROVIDERS: Specialist Research Data Abstracter/Coder; Student in an Organized Health Care Education/Training Program; ADMITTING PHYSICIAN Internal Medicine; ATTENDING PHYSICIAN General Practice; CONSULT PHYSICIAN Internal Medicine Cardiovascular Disease; EMERGENCY PHYSICIAN Emergency Medicine
DX: I11.0 Hypertensive heart disease with heart failure (principal); I50.33 Acute on chronic diastolic (congestive) heart failure; J96.01 Acute respiratory failure with hypoxia; I48.19 Other persistent atrial fibrillation; Z87.891 Personal history of nicotine dependence; Z79.01 Long term (current) use of anticoagulants; Z79.82 Long term (current) use of aspirin; Z79.899 Other long term (current) drug therapy
CPT/HCPCS: 71046; 80053; 83735; 83880; 84100; 85025; 85027; 85610; 85730; 86850; 86900; 86901; 93005; 93308; 93321; 93325; 94640; 96374; 97162; 97166; 99285

== ENCOUNTER 2025-03-04 18:20 | Inpatient (IN) | payer MEDICARE, SELFPAY ==
[2025-03-04] VITALS (9 sets, daily range): BP systolic 115–162; BP diastolic 64–134; BMI 27.9; BMI 29.0
--- NOTE | 2025-03-04 12:35 | ED.GENMED ---
History of Present Illness
General
Chief Complaint: Swelling
Time Seen by Provider: 03/04/25 12:12
Nursing documentation reviewed up to this point in time: agreed with
History of Present Illness
History of Present Illness:
79-year-old female presents to the ER for further treatment of pain and swelling to her right lower extremity which has been progressing over the last week or so. Patient reports that she typically does not experience swelling in this leg. She
denies any fevers or chills but has been using Tylenol [id number] due to pain in the leg. She denies any direct injury or trauma. She is on chronic anticoagulation due to prior history of atrial fibrillation. She is also on daily diuretics
due to fluid retention. She had seen her [employer] product consultant earlier in the week and was advised to come to the ER should her redness worsen. Patient reports the pain to be severe up in her medial thigh. No change in appetite. No recent antibiotics.
Past History
Past History
ED Past Medical History: Arrthythmia (Atrial fibrillation), CHF, COPD, GERD, HTN, Valvular disease (Endocarditis) and Other
ED Past Surgical History: Appendectomy, Cardiac and Other
Social History
Tobacco: Non-smoker
Alcohol: None
Drug: None
Review of Systems
Review of Systems
Allergies reviewed?: Yes
Phy Exam
Physical Exam
Physical Exam:
Patient is awake, alert, appears in no acute distress, head is NCAT, PERRL, EOMI mucous membranes moist, conjunctiva pink, heart regular rate and rhythm without murmurs or ectopy, lungs are clear to auscultation without wheezes rales or rhonchi, no
JVD, abdomen is soft and nontender on palpation, left lower extremity with trace edema to the ankles, right lower extremity erythematous from foot, circumferential lower leg and streaking up the medial thigh where there are patches of violaceous
discoloration along the medial thigh, there is a 5 mm area of skin erosion and breakdown along the medial aspect of the mid second phalanx of the little right foot, there is a thick callus and eschar present on the distal fourth digit, 2+ DP pulses
present symmetric bilateral feet, GCS is 15
Scores
Heart Failure Risk
Heart Failure Risk Score: Not Applicable
Course
Orders/Labs/Results
Orders:
Orders
03/04/25 12:19
CR Foot - Right Min 3 Views Urgent
Comment: attn distal digit 4 and medial digit 2
Reason For Exam: infection
US Legs, Right [US Periph Venous LOWER Ext RT] Urgent
Comment:
Reason For Exam: edema
03/04/25 12:21
Complete Blood Count/With Diff Urgent
Comprehensive Metabolic Panel Urgent
03/04/25 12:23
Lactate Level [Lactic Acid] Urgent
Blood Culture Q30M
LACI Source: Blood/Venous
Specimen Description:
Blood Culture Q30M
LACI Source: Blood/Venous
Specimen Description:
03/04/25 12:38
Electrocardiogram (*1) Urgent
Reason for Study: Atrial Fibrillation
EKG- Treatment ONCE
03/04/25 14:24
*Vancomycin 1,500 mg Loading Dose(consider for 50-69 kg; MAX HD load) Vancomycin [Vancocin] 1,500 mg 0.9% Sodium Chloride 500 ml [Nss] 500 ml IV NOW
Abnormal Lab Results
03/04/25
12:21
RBC 5.48 H 10^6/uL
(4.20-5.40)
Hct 51.2 H %
(37.0-47.0)
MCH 26.6 L pg
(27.0-31.0)
MCHC 28.5 L g/dL
(33.0-37.0)
RDW 18.8 H %
(11.5-14.5)
Absolute Lymphs (auto) 0.4 L 10^3/uL
(1.2-3.4)
Absolute Monos (auto) 0.9 H 10^3/uL
(0.1-0.6)
Neutrophils % 82.3 H %
(42.2-75.2)
Lymphocytes % 5.3 L %
(20.5-51.1)
Monocytes % 11.2 H %
(1.7-9.3)
Potassium 3.3 L mmol/L
(3.5-5.1)
BUN 49 H mg/dl
(7-17)
Creatinine 1.4 H mg/dL
(0.6-1.0)
Glucose 136 H mg/dl
(70-99)
Total Bilirubin 1.8 H mg/dl
(0.2-1.3)
Alkaline Phosphatase 207 H U/L
(38-126)
03/04/25 12:21
03/04/25 12:21
Mild increase in creatinine compared to prior labs from 02/26/2025. White blood count reassuring. Hemoglobin normal.
Vital Signs
Initial and Last Documented VS:
Initial Vital Signs
Temp Pulse Resp BP Pulse Ox
98 F 96 16 131/78 93
03/04/25 11:53 03/04/25 11:53 03/04/25 11:53 03/04/25 11:53 03/04/25 11:53
Last Documented Vital Signs
Temp Pulse Resp BP Pulse Ox
98 F 96 16 131/78 93
03/04/25 11:53 03/04/25 11:53 03/04/25 11:53 03/04/25 11:53 03/04/25 12:38
MDM/Problems Addressed
Differential Diagnosis Includes:
Differential diagnosis to consider but not limited to cellulitis, DVT, osteomyelitis along with other etiologies considered
Chronic conditions affecting care:
Long-term anticoagulation, cardiomyopathy, CHF, COPD, former smoker, hypertension, hyperlipidemia
*Radiology
Radiology exam reviewed: radiology read reviewed (No DVT seen on ultrasound, positive Sawant's cyst)
*Pulse Oximetry
SaO2: 93
Oxygen Mode of Delivery: Room air
Patient hypoxic: no
*Critical Care Note
Total Time (30-74mins, 75-104mins- exclusive of procedures): Not Applicable
Update Note
Update Note:
Patient resting with stable vital signs throughout time in the emergency department. IV vancomycin ordered for treatment of cellulitis. Patient presentation reviewed with hospitalist who accepts patient for admission.
ED Attending Note
-
Portions of this chart may have been created with voice recognition software.� Occasional wrong word or��sound alike� substitutions may have occurred due to the inherent limitations of voice recognition software.
Discharge Plan
Departure
Prescriptions:
No Action
albuterol sulfate [Ventolin HFA] 90 MCG/PUFF HFA aerosol inhaler
2 puff inhalation R TIDPRN PRN (Reason: SOB)
atorvastatin [Lipitor] 20 mg Tablet
20 mg PO DAILY
fluticasone propion-salmeterol 113-14 mcg/actuation aerosol powdr breath activated
2 inh INHALATION R BID
acetaminophen [Tylenol] 325 mg Tablet
650 mg PO Q4HPRN PRN (Reason: MILD PAIN)
ascorbic acid (vitamin C) [Vitamin C] 500 mg Tablet
1,000 mg PO DAILY
warfarin [Jantoven] 2 mg tablet
2.5 mg PO QPM
aspirin 81 mg Tablet,Delayed Release (Dr/Ec)
81 mg PO DAILY
furosemide 20 mg Tablet
60 mg PO BID
metoprolol tartrate 25 mg tablet
25 mg PO BID
gabapentin 300 mg capsule
300 mg PO BID
amiodarone 200 mg tablet
200 mg PO DAILY Qty: 30 0RF
Camzyos 5 mg Capsule
10 mg PO DAILY Qty: 30 0RF
Referrals:
UNKNOWN - PT DOES,NOT KNOW [Family Provider]
Interventions
Interventions:
*Risk Screen - Suicide Last Done: 03/04/25 11:53
*General Assessment Last Done: 03/04/25 13:55
*Neglect/Abuse Screening Last Done: 03/04/25 11:53
*ED- Fall Risk Assessment Last Done: 03/04/25 13:55
*ED COVID-19 Vaccine History Last Done: 03/04/25 13:55
*ED Influenza Vaccine History Last Done: 03/04/25 13:55
ED- Cardiac Assessment Last Done: 03/04/25 12:30
ED- Pulmonary Assessment Last Done: 03/04/25 12:30
ED-Skin Assessment Last Done: 03/04/25 12:30
Discharge Date and Time
Print Language: MALAWIAN
[2025-03-04 12:48] LABS: ALT (SGPT) 30 U/L (0-35); AST (SGOT) 35 U/L (14-36); Albumin 4.0 g/dl (3.5-5.0); Alkaline Phosphatase 207 U/L (38-126); Blood Urea Nitrogen 49 mg/dl (7-17); Calcium 8.4 mg/dl (8.4-10.2); Carbon Dioxide 30 mmol/L (22-30); Chloride 104 mmol/L (98-107); Glucose 136 mg/dl (70-99); Potassium 3.3 mmol/L (3.5-5.1); Sodium 144 mmol/L (135-145); Total Protein 6.8 g/dl (6.3-8.2); eGFR 38.51
[2025-03-04 13:12] LABS: Anisocytosis 1+; Hematocrit 51.2 % (37.0-47.0); Hemoglobin 14.6 g/dL (12.0-16.0); Hypochromasia 2+; Mean Corp Hgb Conc. 28.5 g/dL (33.0-37.0); Mean Corpuscular Volume 93.4 fL (81.0-99.0); Normal RBC Morphology No; Nucleated Red Blood Cells % 0 %; Ovalocytes 1+; Platelet Count 156 10^3/uL (130-400); Polychromasia 1+; Red Cell Dist. Width 18.8 % (11.5-14.5)
[2025-03-04] MEDS: VANCOCIN 540 MG IV (14:51)
[2025-03-04] MEDS: TYLENOL 1000 MG PO (15:57)
--- NOTE | 2025-03-04 16:32 | HPS.HSE ---
Family Physician
-
Family Physician: NOT KNOW UNKNOWN - PT DOES
Chief Complaint
-
Swelling, pain, redness of the right lower extremity
History of Present Illness
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
hypertension, hyperlipidemia, COPD, GERD, chronic left knee pain presents to the ER reporting pain, swelling and redness of the right lower extremity that started 4 days ago. Patient states that the swelling started on the right foot, that has
progressed gradually up spreading to the upper thigh. She has been taking Tylenol and for her pain. Patient denies any fever/chills, trauma, history of travel. Patient was seen by her director of counseling for a hospital follow-up, Dr. Posada on 02/28/2025
who advised her to go to the ER if the swelling worsens.
Medical History
Past Medical History
Past Medical History: Reports CAD, CHF, COPD, HTN, Hypercholesterolemia and Other (HOCM)
Additional Past Medical History:
Paroxysmal A-fib, hokum, history of endocarditis s/p mechanical mitral valve, prosthetic mitral stenosis, left atrial clot, nonobstructive CAD, aortic stenosis, hypertension, hyperlipidemia, COPD, GERD, chronic left knee pain
Past Surgical History: Reports Appendectomy and Orthopedic
Additional Past Surgical History:
Cardioversion, PVI ablation
Social History
Tobacco: Former Smoker
Alcohol: Occasional
Drug: None
Personal: Single
Living: Alone
Employment: Employed
Family History
Family History: Not pertinent
Allergies / Home Medications
Allergies reflects when Allergies were last updated in [employer].
Home Medications with original date entered in [employer]
Allergy/Medication List:
Allergies
Allergy/AdvReac Type Severity Reaction Status Date / Time
irbesartan Allergy SEE BELOW Verified 03/04/25 11:53
Penicillins Allergy CHILDHOOD/H Verified 03/04/25 11:53
SUSHMA
procaine HCl (From Novocain) Allergy SEE BELOW Verified 03/04/25 11:53
Home Medications
albuterol sulfate 90 mcg/actuation aerosol inhaler (Ventolin HFA) 2 puff inhalation R TIDPRN PRN SOB 07/11/21
atorvastatin 20 mg tablet (Lipitor) 20 mg PO DAILY High Cholesterol 06/21/23
fluticasone 113 mcg-salmeterol 14 mcg/actuation breath activated powdr 2 inh inhalation R BID Lung/Breathing Issues 06/21/23
acetaminophen 325 mg tablet (Tylenol) 650 mg PO Q4HPRN PRN MILD PAIN 08/23/24
ascorbic acid (vitamin C) 500 mg tablet (Vitamin C) 1,000 mg PO DAILY Supplement 08/23/24
warfarin 2 mg tablet (Jantoven) 2.5 mg PO QPM Blood Clot Prevention/Tx 10/03/24
aspirin 81 mg tablet,delayed release 81 mg PO DAILY Heart Disease/Condition 01/20/25
furosemide 20 mg tablet 60 mg PO BID Fluid Retention/Swelling 01/20/25
metoprolol tartrate 25 mg tablet 25 mg PO BID Heart Disease/Condition 01/20/25
gabapentin 300 mg capsule 300 mg PO BID moderate pains 02/22/25
amiodarone 200 mg tablet 200 mg PO DAILY Arrhythmia #30 tabs 02/24/25
mavacamten 5 mg capsule (Camzyos) 10 mg (2 x 5 mg) PO DAILY Heart disease/condition #30 caps 02/24/25
Review of Systems
-
A 12 point ROS was completed and negative except as noted: Yes
Physical Exam
Vital Signs
Vital Signs
Temp Pulse Resp BP Pulse Ox
98 F 95 21 125/106 95
03/04/25 11:53 03/04/25 16:00 03/04/25 16:00 03/04/25 16:00 03/04/25 15:45
Physical Exam
General: No Apparent Distress
HEENT: NormoCephalic and Atraumatic
Cardiac: S1/S2, Irregular Rhythm, Murmur and Peripheral Edema
GI: Soft, Non Tender, Non Distended and Normal Bowel Sounds
Skin: Warm, Dry and Other (Right lower extremity-erythema and swelling on the right foot, warm and tender to touch, erythema, swelling spreading up to the medial thigh., Distal neurovasculature intact, thick callus, which has eroded and dry on the
plantar aspect of the right fourth toe.)
Neuro: Awake, Alert, Oriented and AO x 3
Psych: Calm
Laboratory Results
-
03/04/25 12:21
03/04/25 12:21
Laboratory Results
Lactic Acid 1.4 mmol/L (0.7-2.0) 03/04/25 12:23
Total Bilirubin 1.8 mg/dl (0.2-1.3) H 03/04/25 12:21
AST 35 U/L (14-36) 03/04/25 12:21
ALT 30 U/L (0-35) 03/04/25 12:21
Alkaline Phosphatase 207 U/L (38-126) H 03/04/25 12:21
Impression/Plan
-
IMPRESSION:
79-year-old female presenting with swelling, pain and erythema of her right lower extremity.
PLAN:
#Cellulitis of right lower extremity
Patient is afebrile (she takes [id number] Tylenol at home for the pain), normal white count, not tachycardic.
Will start vancomycin
X-ray foot with no evidence of osteomyelitis
Peripheral vascular ultrasound negative for DVT
No prior history of MRSA
Will check MRSA swab
Monitor fever curve
Trend white count
Monitor for spreading erythema, area marked today
#Hypokalemia
Potassium at 3.3
Patient on Lasix
Will replete
Monitor BMP
#HFpEF
Continue Lasix
Continue metoprolol
#Paroxysmal A-fib
Continue amiodarone
Continue metoprolol
Continue warfarin
Check INR/PT
Goal INR�2.5�3.5
#Hocm
Continue Camzyos
#COPD
Continue home inhalers
#Hyperlipidemia
Continue atorvastatin
DVT prophylaxis�warfarin
Diet�low-cholesterol
Full code
--- NOTE | 2025-03-04 16:55 | W.PN.UPDATE ---
Update Note
Progress Note Update
I have seen and examined the patient and discussed the treatment plan with Dr. Burrell. I agree with Dr. Burrell's assessment and plan with the following comments:
General: No Apparent Distress, chills
HEENT: NormoCephalic, Moist mucous membranes, Atraumatic
Respiratory: Clear and Non Labored Respirations
Cardiac: S1/S2 and Regular Rhythm; No Rub or Gallop
GI: Soft, Non Tender, Non Distended and Normal Bowel Sounds
Musculoskeletal: No Edema, no deformity
Skin: Extensive right lower extremity erythema appearing to originate from the right groin and extending distally
: NO Bellamy
Neuro: Awake, Alert, Nonfocal/grossly intact
Psych: Calm and Intact Judgment/Insight
Ms. Bullock is a 79-year-old female with a medical history of HFpEF, HOCUM (on Camzyos), persistent A-fib, and mechanical mitral valve replacement (on warfarin) who presented with right lower extremity pain and erythema. No open wounds or
drainage. No focal injuries.
Right lower extremity erythema:
- No open wounds or drainage
- Antibiotics with vancomycin for now, will check MRSA swab and can discontinue MRSA coverage if negative, follow-up blood cultures
- Checking a Lyme serology for completeness although erythema not consistent with Lyme's related erythema migrans
- Remains afebrile with no leukocytosis, normotensive
- Lower extremity Doppler negative for DVT
- Pain control as needed, Tylenol for fever
CODE STATUS: Full code
--- NOTE | 2025-03-04 19:12 | PHA.VAN.IN ---
Assessment
- Assessment
Renal Function: SCR Appears Elevated from baseline
Plan
- Plan
Initial / Loading Dose: VANCOMYCIN 2000 MG IV ~ 1500
Maintenance Regimen: Dose by random level
Monitoring: Random level scheduled 03/05 w. am labs Pharmacy will follow
Pharmacokinetics Vancomycin I
- -
Patient Age: 79
Patient Sex: Female
Vancomycin Day #: 1
Indication: Skin And Soft Tissue
Requesting Provider: Dr Cristina Otto (Dr Ashanti Yen Resident)
Pertinent Antimicrobial Allergies:
penicillins childhood/hives. Pt denies.
Height / Weight:
Height 5 ft 1 in
Actual Weight 69.485 kg
Pertinent Past Medical History: pain, swelling and redness of the right lower extremity that started 4 days
- Vital Signs / Lab Results
Temp Pulse Resp BP Pulse Ox
98 F 101 16 130/67 95
03/04/25 11:53 03/04/25 18:56 03/04/25 18:56 03/04/25 18:56 03/04/25 18:56
Lab Results - Hematology
03/04/25
12:21
WBC 7.9
Lab Results - Chemistry
03/04/25
12:21
BUN 49 H
Creatinine 1.4 H
Albumin 4.0
03/04/25
12:23
Lactic Acid 1.4
[2025-03-04] MEDS: LASIX 60 MG PO (19:42)
[2025-03-04] MEDS: COUMADIN 2.5 MG PO (19:42)
[2025-03-04] MEDS: KCL 40 MEQ PO (19:42)
[2025-03-04] MEDS: ADVAIR HFA 115/21 MCG INHALER 2 PUFF INH (19:51)
--- NOTE | 2025-03-04 20:00 | PTCARENOTE ---
Assumed care of patient from previous RN. Patient arrived during change of shift, standby assist into room, alert and oriented. Patient upset that she was promised dinner meal from ED and no trays arrived to room for her. Patient given 2 boxed
lunches, states she is feeling better now. Upper and lower dentures found in bed with patient -- placed in container and soaking. Alarm placed, patient with fall at home Friday prior to admission. Call burris in reach, patient resting comfortably in
bed. Will monitor.
[2025-03-04] MEDS: NEURONTIN 300 MG PO (20:59)
[2025-03-04] MEDS: LOPRESSOR 25 MG PO (20:59)
[2025-03-05] VITALS (9 sets, daily range): BP systolic 101–143; BP diastolic 50–107; PULSE 75; O2SAT 98; BMI 29.1
[2025-03-05] MEDS: TYLENOL 650 MG PO (03:14)
[2025-03-05 06:54] LABS: Hematocrit 45.8 % (37.0-47.0); Hemoglobin 13.5 g/dL (12.0-16.0); Mean Corp Hgb Conc. 29.5 g/dL (33.0-37.0); Mean Corpuscular Volume 92.3 fL (81.0-99.0); Nucleated Red Blood Cells % 0.3 %; Platelet Count 159 10^3/uL (130-400); Red Cell Dist. Width 18.3 % (11.5-14.5)
[2025-03-05 07:09] LABS: INR 2.95; PT 30.6 Sec (11.4-14.6)
[2025-03-05 07:15] LABS: ALT (SGPT) 26 U/L (0-35); AST (SGOT) 29 U/L (14-36); Albumin 3.5 g/dl (3.5-5.0); Alkaline Phosphatase 195 U/L (38-126); Blood Urea Nitrogen 38 mg/dl (7-17); Calcium 8.4 mg/dl (8.4-10.2); Carbon Dioxide 31 mmol/L (22-30); Chloride 106 mmol/L (98-107); Estimated Creatinine Clearance 38 ml/min; Glucose 82 mg/dl (70-99); Potassium 3.6 mmol/L (3.5-5.1); Sodium 138 mmol/L (135-145); Total Protein 6.4 g/dl (6.3-8.2); eGFR 51.43
[2025-03-05] MEDS: ADVAIR HFA 115/21 MCG INHALER 2 PUFF INH ×2 (07:27→19:38)
--- NOTE | 2025-03-05 07:42 | PHA.VAN.FU ---
Vancomycin Assessment / Plan
- Assessment
Renal Function: SCR Increasing
WBC's are: WNL
In the past 24 hrs, patient has been: Afebrile
- Assessment - Therapeutic Drug Monitoring
Random Level: 14.7 approx. 16 hours after LD
- Dosing Plan
Dosing by Level: Re-dose today (vancomycin 1000 mg x 1)
- Monitoring Plan
Random Level: level ordered for 10. @0600
- Follow Up
Pharmacy will continue to follow.
Vancomycin Follow UP
- -
Patient Age: 79
Patient Sex: Female
Vancomycin Day #: 2
Indication: Skin And Soft Tissue
Requesting Provider: Dr Cristina Otto (Dr Ashanti Yen Resident)
Pertinent Antimicrobial Allergies:
penicillins childhood/hives. Pt denies.
Height / Weight:
Height 5 ft 1 in
Actual Weight 69.717 kg
Pertinent Past Medical History: pain, swelling and redness of the right lower extremity that started 4 days
- Vital Signs / Lab Results
Temp Pulse Resp BP Pulse Ox
98.8 F 84 16 101/54 97
03/05/25 03:00 03/05/25 07:32 03/05/25 07:32 03/05/25 03:00 03/05/25 07:32
Lab Results - Hematology
03/04/25 03/05/25
12:21 06:20
WBC 7.9 7.0
Lab Results - Chemistry
03/04/25 03/05/25
12:21 06:20
BUN 49 H 38 H
Creatinine 1.4 H 1.1 H
Estimated Creat Clear 38
Albumin 4.0 3.5
03/04/25
12:23
Lactic Acid 1.4
Therapeutic Drug Monitoring
Random Vancomycin 14.7 ug/ml 03/05/25 06:20
[2025-03-05] MEDS: NEURONTIN 300 MG PO ×2 (09:43→21:25)
[2025-03-05] MEDS: VITAMIN C 1000 MG PO (09:43)
[2025-03-05] MEDS: ROXICODONE 5 MG PO ×3 (09:43→21:53)
[2025-03-05] MEDS: ASPIR LOW (ENTERIC COATED) 81 MG PO (09:44)
[2025-03-05] MEDS: LASIX 60 MG PO ×2 (09:44→15:38)
[2025-03-05] MEDS: LOPRESSOR 25 MG PO ×2 (09:44→21:25)
[2025-03-05] MEDS: VISBIOME 1 CAP PO (09:44)
[2025-03-05] MEDS: LIPITOR 20 MG PO (09:44)
[2025-03-05] MEDS: PACERONE 200 MG PO (10:02)
[2025-03-05] MEDS: VANCOCIN 200 IV (11:11)
[2025-03-05] MEDS: CLEOCIN 450 MG PO ×3 (11:17→21:25)
--- NOTE | 2025-03-05 11:19 | W.PN.HOSP.TC ---
Today's Communication/Plan
-
Assessment / Plan
Assessment / Plan
General: No Apparent Distress, chills
HEENT: NormoCephalic, Moist mucous membranes, Atraumatic
Respiratory: Clear and Non Labored Respirations
Cardiac: S1/S2 and Regular Rhythm; No Rub or Gallop
GI: Soft, Non Tender, Non Distended and Normal Bowel Sounds
Musculoskeletal: No Edema, no deformity
Skin: Extensive right lower extremity erythema appearing to originate from the right groin and extending distally, no open wounds or drainage
: NO Bellamy
Neuro: Awake, Alert, Nonfocal/grossly intact
Psych: Calm and Intact Judgment/Insight
Ms. Bullock is a 79-year-old female with a medical history of HFpEF, HOCUM (on Camzyos), persistent A-fib, and mechanical mitral valve replacement (on warfarin) who presented with right lower extremity pain and erythema. No open wounds or
drainage. No focal injuries.
Right lower extremity erythema:
- No open wounds or drainage
- No spreading of erythema today beyond marked area, remains significantly painful
- Continuing antibiotics with vancomycin for now, added clindamycin to address possible strep toxins, will discontinue vancomycin if MRSA swab negative, follow-up blood cultures
- Checking a Lyme serology for completeness although erythema not consistent with Lyme's related erythema migrans
- Remains afebrile with no leukocytosis, normotensive
- Lower extremity Doppler negative for DVT
- Pain control as needed, Tylenol for fever
Hypokalemia:
- Resolved, will monitor
HFpEF:
- Chronic, compensated
- Continue beta-blockade with home metoprolol tartrate 25 mg twice daily
- Continue home Lasix 60 mg p.o. twice daily
Paroxysmal A-fib:
- Continue home amiodarone 200 mg daily and metoprolol tartrate 25 mg p.o. twice daily
- Anticoagulated with warfarin considering mechanical mitral valve, INR goal 2.5-3.5
Hocm:
- Continue home Camzyos
COPD:
- No evidence of acute exacerbation
- Continue scheduled inhalers
Hyperlipidemia:
- Continue atorvastatin 10 mg daily
DVT prophylaxis: Warfarin
CODE STATUS: Full code
Anticipated Discharge: 24 - 48 hours
Subjective/Interval History
-
Date of Service: March 05, 2025
Patient was seen and examined at bedside this morning. Her right leg is still painful and red. Has it elevated currently.
Objective Data
-
Labs:
Laboratory Results
03/05/25
06:20
WBC 7.0
Hgb 13.5
Hct 45.8
Plt Count 159
PT 30.6 H
INR 2.95
Sodium 138
Potassium 3.6
Chloride 106
Carbon Dioxide 31 H
BUN 38 H
Creatinine 1.1 H
Glucose 82
Calcium 8.4
Total Bilirubin 1.6 H
AST 29
ALT 26
Alkaline Phosphatase 195 H
Vital Signs:
Vital Signs
Temp Pulse Resp BP Pulse Ox
98.4 F 84 16 137/64 97
03/05/25 07:00 03/05/25 07:32 03/05/25 07:32 03/05/25 07:00 03/05/25 07:32
I&O
03/04/25 03/05/25 03/06/25
06:59 06:59 06:59
Intake Total 480 / 480
Balance 480 / 480
Review of Systems
-
History Source: Patient
All other systems: Reviewed and negative
Skin: Reports Rash (Right lower extremity redness and pain)
Physical Exam
-
General: No Apparent Distress
--- NOTE | 2025-03-05 15:06 | CM ---
Initial assessment completed with patient who lives alone in a 2nd floor apartment with 12 inside steps to enter. 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 No DME. No in-home services. 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 No HC-POA. No VA
benefits. No psychiatric hospitalizations. No prescription plan. PCP is Dr. Felisa Clark. [facility]acy is [facility] [place]. Discharge POC: TBD. Anticipate home with no needs vs HH RN.
[2025-03-05] MEDS: COUMADIN 2.5 MG PO (17:49)
--- NOTE | 2025-03-05 21:58 | PTCARENOTE ---
Patient moved to 316-2 to provide privacy to roommate. Patient was able to ambulate with walker from 317-1 to 316-2, c/o 10/10 pain to right leg but able to tolerate ambulation with assist of walker, tolerated well. PRN oxy provided, see MAR.
Maintained on oxygen at this time. Call burris in reach, will monitor.
[2025-03-06 03:00] VITALS: BP 111/57
[2025-03-06] MEDS: ROXICODONE 5 MG PO ×3 (06:14→20:32)
[2025-03-06 07:30] VITALS: BP 113/57
[2025-03-06] MEDS: ADVAIR HFA 115/21 MCG INHALER 2 PUFF INH ×2 (07:48→19:14)
[2025-03-06] MEDS: PACERONE 200 MG PO (07:51)
[2025-03-06] MEDS: VITAMIN C 1000 MG PO (07:52)
[2025-03-06] MEDS: ASPIR LOW (ENTERIC COATED) 81 MG PO (07:52)
[2025-03-06] MEDS: CLEOCIN 450 MG PO (07:52)
[2025-03-06] MEDS: LASIX 60 MG PO ×2 (07:52→15:27)
[2025-03-06] MEDS: LIPITOR 20 MG PO (07:52)
[2025-03-06] MEDS: VISBIOME 1 CAP PO (07:52)
[2025-03-06] MEDS: LOPRESSOR 25 MG PO ×2 (07:53→20:33)
[2025-03-06] MEDS: NEURONTIN 300 MG PO ×2 (07:54→20:33)
[2025-03-06 08:37] LABS: Hematocrit 47.3 % (37.0-47.0); Hemoglobin 13.2 g/dL (12.0-16.0); Mean Corp Hgb Conc. 27.9 g/dL (33.0-37.0); Mean Corpuscular Volume 94.4 fL (81.0-99.0); Nucleated Red Blood Cells % 0 %; Platelet Count 140 10^3/uL (130-400); Red Cell Dist. Width 18.7 % (11.5-14.5)
[2025-03-06 08:51] LABS: Blood Urea Nitrogen 30 mg/dl (7-17); Calcium 8.6 mg/dl (8.4-10.2); Carbon Dioxide 35 mmol/L (22-30); Chloride 102 mmol/L (98-107); Estimated Creatinine Clearance 41 ml/min; Glucose 134 mg/dl (70-99); Potassium 4.4 mmol/L (3.5-5.1); Sodium 137 mmol/L (135-145); eGFR 57.66
[2025-03-06] MEDS: LMX 4 1 APPLIC TOPICAL (10:47)
[2025-03-06 11:30] VITALS: BP 150/65
--- NOTE | 2025-03-06 13:26 | W.PN.HOSP.TC ---
Today's Communication/Plan
-
Assessment / Plan
Assessment / Plan
General: No Apparent Distress, chills
HEENT: NormoCephalic, Moist mucous membranes, Atraumatic
Respiratory: Clear and Non Labored Respirations
Cardiac: S1/S2 and Regular Rhythm; No Rub or Gallop
GI: Soft, Non Tender, Non Distended and Normal Bowel Sounds
Musculoskeletal: No Edema, no deformity
Skin: Extensive right lower extremity erythema appearing to originate from the right groin and extending distally, no open wounds or drainage
: NO Bellamy
Neuro: Awake, Alert, Nonfocal/grossly intact
Psych: Calm and Intact Judgment/Insight
Ms. Bullock is a 79-year-old female with a medical history of HFpEF, HOCUM (on Camzyos), persistent A-fib, and mechanical mitral valve replacement (on warfarin) who presented with right lower extremity pain and erythema. No open wounds or
drainage. No focal injuries.
Right lower extremity erythema:
- Erythema and pain improving
- No open wounds or drainage
- Discontinued vancomycin, continue clindamycin, follow-up blood cultures which are negative to date
- Appreciate ID input
- Checking a Lyme serology for completeness although erythema not consistent with Lyme's related erythema migrans
- Remains afebrile with no leukocytosis, normotensive
- Lower extremity Doppler negative for DVT
- Pain control as needed, Tylenol for fever
Hypokalemia:
- Resolved, will monitor
HFpEF:
- Chronic, compensated
- Continue beta-blockade with home metoprolol tartrate 25 mg twice daily
- Continue home Lasix 60 mg p.o. twice daily
Paroxysmal A-fib:
- Continue home amiodarone 200 mg daily and metoprolol tartrate 25 mg p.o. twice daily
- Anticoagulated with warfarin considering mechanical mitral valve, INR goal 2.5-3.5
Hocm:
- Continue home Camzyos
COPD:
- No evidence of acute exacerbation
- Continue scheduled inhalers
Hyperlipidemia:
- Continue atorvastatin 10 mg daily
DVT prophylaxis: Warfarin
CODE STATUS: Full code
Anticipated Discharge: 24 - 48 hours
Subjective/Interval History
-
Date of Service: March 06, 2025
Patient was seen and examined at bedside this morning. Cellulitis improving however still painful.
Objective Data
-
Labs:
Laboratory Results
03/06/25
07:23
WBC 6.4
Hgb 13.2
Hct 47.3 H
Plt Count 140
Sodium 137
Potassium 4.4
Chloride 102
Carbon Dioxide 35 H
BUN 30 H
Creatinine 1.0
Glucose 134 H
Calcium 8.6
Vital Signs:
Vital Signs
Temp Pulse Resp BP Pulse Ox
98.2 F 86 16 150/65 97
03/06/25 11:30 03/06/25 11:30 03/06/25 11:30 03/06/25 11:30 03/06/25 11:30
I&O
03/05/25 03/06/25 03/07/25
06:59 06:59 06:59
Intake Total 480 / 480 480 / 480
Balance 480 / 480 480 / 480
Review of Systems
-
History Source: Patient
All other systems: Reviewed and negative
Skin: Reports Sores (Extensive redness and pain of right lower extremity)
Physical Exam
-
General: No Apparent Distress
--- NOTE | 2025-03-06 14:06 | CON.ID ---
Consultation
-
Date/Time Consultation Requested: 03/06/25 9:18
Date/Time Consultation Performed: 03/06/25 14:08
Requesting Provider: Dr Olmstead
Performing Provider: Dr Maria
Reason for Consultation: right lower extremity erythema
Chief Complaint / Past History
Chief Complaint
right lower extremity erythema
History of Present Illness
Ms Ortiz is a 79 year old female with history notable for endocarditis s/p mechanical MV, who presented here on 03/04 for pain, redness, swelling of the right lower extremity of 4 days duration. The swelling began in the foot and then gradually
progressed to include the upper thigh. She denies any fevers, chills, trauma to the area. She has a small cut over the distal second toe.
Since arrival here she has been afebrile, bp stable, wbc initially 7.9 now 6.4, hgb 13.2, plt 140, L shift has persisted, Cr 1.4 now 1.0, she had a positive lyme screen 01/02/25 a repeat lyme serology was done on admission, mrsa screen negative,
blood cultures x2 no growth at 48 hours, she was initially started on vancomycin and clindamycin and is currently on clindamycin only. Foot xray: no evidence of osteomyelitis. ID is consulted for assistance with management.
Past History
Additional Past Medical History:
Paroxysmal A-fib, hokum, history of endocarditis s/p mechanical mitral valve, prosthetic mitral stenosis, left atrial clot, nonobstructive CAD, aortic stenosis, hypertension, hyperlipidemia, COPD, GERD, chronic left knee pain
Additional Past Surgical History:
Appendectomy and Orthopedic
Allergy History:
irbesartan Allergy (Verified 03/04/25 11:53)
SEE BELOW
Penicillins Allergy (Verified 03/04/25 11:53)
CHILDHOOD/HIVES
procaine HCl (From Novocain) Allergy (Verified 03/04/25 11:53)
SEE BELOW
Medications Reviewed: Yes
Social History
Tobacco: Former Smoker
Alcohol: Occasional
Drug: None
Family History
Family History: Not Pertinent
Review of Systems
Vital Signs
Temp Pulse Resp BP Pulse Ox
98.2 F 86 16 150/65 97
03/06/25 11:30 03/06/25 11:30 03/06/25 11:30 03/06/25 11:30 03/06/25 11:30
Physical Exam
Physical Exam
Constitutional: No Acute Distress
Cardiovascular: Regular Rate and S1/S2; Negative Murmur or Rub
Pulmonary: Clear and Symmetric; Negative Wheezes, Rales or Rhonchi
Gastrointestinal: Soft, Non Tender, Non Distended and Normal Bowel Sounds
Skin: Warm, Dry and Rash (erythema, warmth, tenderness - most prominent over the dependant quad); Negative Jaundice
Lab / Diagnostic Study Results
03/06/25 07:23
03/06/25 07:23
Abs Immat Gran (auto) 0.1 10^3/uL (0-0.05) H 03/06/25 07:23
Absolute Neuts (auto) 5.0 10^3/uL (1.4-6.5) 03/06/25 07:23
Absolute Lymphs (auto) 0.4 10^3/uL (1.2-3.4) L 03/06/25 07:23
Absolute Monos (auto) 0.9 10^3/uL (0.1-0.6) H 03/06/25 07:23
Absolute Basos (auto) 0.0 10^3/uL (0-0.2) 03/06/25 07:23
Immature Gran % 0.8 % (0-0.5) H 03/06/25 07:23
Neutrophils % 77.5 % (42.2-75.2) H 03/06/25 07:23
Lymphocytes % 6.9 % (20.5-51.1) L 03/06/25 07:23
Monocytes % 13.7 % (1.7-9.3) H 03/06/25 07:23
Eosinophils % 0.8 % (0-6) 03/06/25 07:23
Basophils % 0.3 % (0-2) 03/06/25 07:23
PT 30.6 Sec (11.4-14.6) H 03/05/25 06:20
INR 2.95 03/05/25 06:20
Lactic Acid 1.4 mmol/L (0.7-2.0) 03/04/25 12:23
Microbiology Results
Micro:
03/04/25 12:23 Blood Culture - Preliminary
Blood/Venous No Growth in 48 hours- Final report to follow
03/04/25 12:23 Blood Culture - Preliminary
Blood/Venous No Growth in 48 hours- Final report to follow
03/05/25 06:46 MRSA Screen - Final
Nose No Methicillin Resistant Staphylococcus aureus isolated.
Assessment / Plan
Nonpurulent Cellulitis
- blood cultures x2 no growth to date
- mrsa screen negative
- compression and elevation of the leg
- cefazolin 2 gm IV [id number]
- stop clindamycin
- not yet stable for discharge in my opinion
[2025-03-06 16:00] VITALS: BP 124/51
[2025-03-06] MEDS: ANCEF 10 IV (16:19)
[2025-03-06] MEDS: COUMADIN 2.5 MG PO (17:04)
[2025-03-06 19:30] VITALS: BP 116/59
[2025-03-06] MEDS: SENOKOT-S 1 TABLET PO (20:39)
[2025-03-06 23:00] VITALS: BP 106/58
[2025-03-07] MEDS: ROXICODONE 5 MG PO ×3 (00:58→20:16)
[2025-03-07] MEDS: ANCEF 10 IV ×3 (00:58→15:22)
[2025-03-07 03:05] VITALS: BP 101/59
[2025-03-07 07:00] VITALS: BP 128/85
[2025-03-07] MEDS: ADVAIR HFA 115/21 MCG INHALER 2 PUFF INH ×2 (07:50→19:08)
[2025-03-07] MEDS: LOPRESSOR 25 MG PO ×2 (09:14→20:15)
[2025-03-07] MEDS: PACERONE 200 MG PO (09:14)
[2025-03-07] MEDS: NEURONTIN 300 MG PO ×2 (09:15→20:16)
[2025-03-07] MEDS: LASIX 60 MG PO ×2 (09:15→15:21)
[2025-03-07] MEDS: LIPITOR 20 MG PO (09:16)
[2025-03-07] MEDS: ASPIR LOW (ENTERIC COATED) 81 MG PO (09:16)
[2025-03-07] MEDS: VISBIOME 1 CAP PO (09:16)
[2025-03-07] MEDS: VITAMIN C 1000 MG PO (09:16)
--- NOTE | 2025-03-07 10:06 | W.PN.HOSP.TC ---
Today's Communication/Plan
-
see A/P
Assessment / Plan
Assessment / Plan
HPI: 79-year-old female with medical history of HFpEF, HOCUM (on Camzyos), persistent A-fib, and mechanical mitral valve replacement (on warfarin) who presented with right lower extremity pain and erythema. No open wounds or drainage. No focal
injuries.
A/P:
# Right lower extremity erythema/cellulitis
Erythema and pain improving
No open wounds or drainage
Discontinued vancomycin/ clindamycin, cont cefazolin 2 gm IV [id number]
Admission blood cultures are negative
Lower extremity Doppler negative for DVT
Appreciate ID input
Lyme serology sent for completeness sake, follow up
Pain control as needed, Tylenol for fever
# Acute hypoxic resp insufficiency
Pt was placed on 2L NC , wean as tolerated, she is not on home O2
# BUTCH, resolved
# Hypokalemia, resolved
# HFpEF, Chronic, compensated
Continue beta-blockade with home metoprolol tartrate 25 mg twice daily
Continue home Lasix 60 mg p.o. twice daily
# Paroxysmal A-fib:
Continue home amiodarone 200 mg daily and metoprolol tartrate 25 mg p.o. twice daily
Anticoagulated with warfarin considering mechanical mitral valve, INR goal 2.5-3.5
# HOCM
Continue home Camzyos
# COPD, No evidence of acute exacerbation
Continue scheduled inhalers
# Hyperlipidemia
Continue atorvastatin 10 mg daily
DVT prophylaxis: Warfarin, daily INR
CODE STATUS: Full code
Dispo: home PT vs no need
DW RN
Anticipated Discharge: 24 - 48 hours
Subjective/Interval History
-
Date of Service: March 07, 2025
Objective Data
-
Vital Signs:
Vital Signs
Temp Pulse Resp BP Pulse Ox
36.9 C 104 16 128/85 94
03/07/25 07:00 03/07/25 07:53 03/07/25 07:53 03/07/25 07:00 03/07/25 07:53
I&O
03/06/25 03/07/25 03/08/25
06:59 06:59 06:59
Intake Total 480 / 480 1020 / 1020
Balance 480 / 480 1020 / 1020
Review of Systems
-
History Source: Patient
Skin: Reports Sores (redness and swelling of RLE has improved )
Physical Exam
-
General: No Apparent Distress, Comfortable and Conversant
HEENT: Normocephalic, Atraumatic, Nose Appears Normal, Ears Appear Normal and Oxygen (2L NC)
Respiratory: Clear to Auscultation and Non Labored Respirations; Negative Accessory Resp Muscle Use
Cardiac: Regular Rhythm and S1/S2
GI: Soft, Nontender, Nondistended and Normal Bowel Sounds
Skin: Warm, Dry and Rash (RLE erythema has improved per pt )
Neuro: Awake and Alert
Psych: Calm and Intact Judgement/Insight
Data Reviewed
-
Ultrasound: Report Reviewed by me
Labs: Labs Reviewed by me
--- NOTE | 2025-03-07 10:24 | CM ---
Addendum entered by Linda Escobar 03/07/25 11:22:
declines VN
Original Note:
patient seen at bedside
chart reviewed
currently on oxygen
PLAN: Home, no needs anticipated, watch if needs for 02
drove self to hospital
[2025-03-07 11:00] VITALS: BP 107/61
[2025-03-07 11:36] LABS: Lyme Antibody Screen, EIA Presump. Positive (Negative)
--- NOTE | 2025-03-07 12:35 | W.PN.ID1 ---
Date of Service
Date of Service: March 07, 2025
Today's Communication
- compression and elevation of the leg
- cefazolin 2 gm IV [id number]
- stop clindamycin
- lyme serologies expected to remain positive for decades once seroconversion has occurred; current rash is not consistent with lyme disease
Assessment / Plan
Nonpurulent Cellulitis
- blood cultures x2 no growth to date
- mrsa screen negative
- compression and elevation of the leg
- cefazolin 2 gm IV [id number]
- stop clindamycin
- lyme serologies expected to remain positive for decades once seroconversion has occurred; current rash is not consistent with lyme disease
Subjective / Review of Systems
afebrile
bp stable
compression off when I enter the room
Vital Signs / Physical Exam
Vital Signs
Vital Signs
Temp Pulse Resp BP Pulse Ox
98.0 F 88 19 107/61 95
03/07/25 11:00 03/07/25 11:00 03/07/25 11:00 03/07/25 11:00 03/07/25 11:00
Physical Exam
Constitutional: No Acute Distress
Cardiovascular: Regular Rate and S1/S2; Negative Murmur or Rub
Pulmonary: Clear and Symmetric; Negative Wheezes or Rales
Gastrointestinal: Soft, Non Tender, Non Distended and Normal Bowel Sounds
Skin: Warm, Dry and Rash (erythema, warmth, swelling of the RLE dependant quad and ankle; 2+ edema at the level of the ankle); Negative Jaundice
Objective Data
Lab Data
Lab Results
03/06/25 07:23
03/06/25 07:23
PT 30.6 Sec (11.4-14.6) H 03/05/25 06:20
INR 2.95 03/05/25 06:20
Estimated Creat Clear 41 ml/min 03/06/25 07:23
Lactic Acid 1.4 mmol/L (0.7-2.0) 03/04/25 12:23
Total Bilirubin 1.6 mg/dl (0.2-1.3) H 03/05/25 06:20
AST 29 U/L (14-36) 03/05/25 06:20
ALT 26 U/L (0-35) 03/05/25 06:20
Alkaline Phosphatase 195 U/L (38-126) H 03/05/25 06:20
Most recent labs reviewed.
Micro Results:
03/04/25 12:23 Blood Culture - Preliminary
Blood/Venous No Growth in 72 hours- Final report to follow
03/04/25 12:23 Blood Culture - Preliminary
Blood/Venous No Growth in 72 hours- Final report to follow
03/05/25 06:46 MRSA Screen - Final
Nose No Methicillin Resistant Staphylococcus aureus isolated.
[2025-03-07 14:59] VITALS: BP 109/60
[2025-03-07] MEDS: COUMADIN 2.5 MG PO (17:28)
[2025-03-07 22:48] VITALS: BP 114/61
[2025-03-08] MEDS: ANCEF 10 IV ×3 (01:18→15:06)
[2025-03-08 06:00] VITALS: BMI 29.9
[2025-03-08 07:25] LABS: INR 2.95; PT 30.6 Sec (11.4-14.6)
[2025-03-08 07:26] LABS: Hematocrit 45.3 % (37.0-47.0); Hemoglobin 13.1 g/dL (12.0-16.0); Mean Corp Hgb Conc. 28.9 g/dL (33.0-37.0); Mean Corpuscular Volume 90.8 fL (81.0-99.0); Platelet Count 138 10^3/uL (130-400); Red Cell Dist. Width 18.2 % (11.5-14.5)
[2025-03-08 07:37] LABS: Blood Urea Nitrogen 31 mg/dl (7-17); Calcium 8.3 mg/dl (8.4-10.2); Carbon Dioxide 35 mmol/L (22-30); Chloride 97 mmol/L (98-107); Estimated Creatinine Clearance 42 ml/min; Glucose 126 mg/dl (70-99); Magnesium 2.6 mg/dl (1.6-2.3); Potassium 4.4 mmol/L (3.5-5.1); Sodium 137 mmol/L (135-145); eGFR 57.66
[2025-03-08] MEDS: ADVAIR HFA 115/21 MCG INHALER 2 PUFF INH ×2 (07:39→19:04)
[2025-03-08 08:02] VITALS: BP 109/71
[2025-03-08] MEDS: LOPRESSOR 25 MG PO ×2 (08:25→20:44)
[2025-03-08] MEDS: VISBIOME 1 CAP PO (08:25)
[2025-03-08] MEDS: LIPITOR 20 MG PO (08:26)
[2025-03-08] MEDS: PACERONE 200 MG PO (08:26)
[2025-03-08] MEDS: LASIX 60 MG PO ×2 (08:26→15:06)
[2025-03-08] MEDS: NEURONTIN 300 MG PO ×2 (08:26→20:44)
[2025-03-08] MEDS: ASPIR LOW (ENTERIC COATED) 81 MG PO (08:26)
[2025-03-08] MEDS: VITAMIN C 1000 MG PO (08:40)
[2025-03-08] MEDS: ROXICODONE 5 MG PO ×2 (08:44→15:17)
--- NOTE | 2025-03-08 09:33 | W.PN.HOSP.TC ---
Today's Communication/Plan
-
see A/P
Assessment / Plan
Assessment / Plan
HPI: 79-year-old female with medical history of HFpEF, HOCUM (on Camzyos), persistent A-fib, and mechanical mitral valve replacement (on warfarin) who presented with right lower extremity pain and erythema. No open wounds or drainage. No focal
injuries.
A/P:
# Right lower extremity erythema/cellulitis
Erythema and pain improving
No open wounds or drainage
Discontinued vancomycin/ clindamycin, cont cefazolin 2 gm IV [id number]
Admission blood cultures are negative
Lower extremity Doppler negative for DVT
Appreciate ID input
Lyme serology was sent for completeness sake, per ID, expected to remain positive for decades once seroconversion has occurred; current rash is not consistent with lyme disease
Pain control as needed, Tylenol for fever
# Acute hypoxic resp insufficiency
Pt was placed on 2L NC, wean as tolerated, she is not on home O2
Check nocturnal pulse Ox
Could check walking pulse Ox prior to discharge
# BUTCH, resolved
# Hypokalemia, resolved
# HFpEF, Chronic, compensated
Continue home metoprolol tartrate 25 mg twice daily
Continue home Lasix 60 mg p.o. twice daily
# Paroxysmal A-fib
Continue home amiodarone 200 mg daily and metoprolol tartrate 25 mg p.o. twice daily
Anticoagulated with warfarin considering mechanical mitral valve, INR goal 2.5-3.5
# HOCM
Continue home Camzyos
# COPD, No evidence of acute exacerbation
Continue scheduled inhalers
# Hyperlipidemia
Continue atorvastatin 10 mg daily
DVT prophylaxis: Warfarin, daily INR
CODE STATUS: Full code
Dispo: home PT vs no need
Anticipated Discharge: Within 24 hours
Subjective/Interval History
-
Date of Service: March 08, 2025
Objective Data
-
Labs:
Laboratory Results
03/08/25
06:49
WBC 7.4
Hgb 13.1
Hct 45.3
Plt Count 138
PT 30.6 H
INR 2.95
Sodium 137
Potassium 4.4
Chloride 97 L
Carbon Dioxide 35 H
BUN 31 H
Creatinine 1.0
Glucose 126 H
Calcium 8.3 L
Vital Signs:
Vital Signs
Temp Pulse Resp BP Pulse Ox
36.9 C 85 16 109/71 96
03/08/25 08:02 03/08/25 08:26 03/08/25 08:02 03/08/25 08:26 03/08/25 08:02
I&O
03/07/25 03/08/25 03/09/25
06:59 06:59 06:59
Intake Total 1020 / 1020 1680 / 1680
Balance 1020 / 1020 1680 / 1680
Review of Systems
-
History Source: Patient
Skin: Reports Sores (redness and swelling of RLE has improved )
Physical Exam
-
General: No Apparent Distress, Comfortable and Conversant
HEENT: Normocephalic, Atraumatic, Nose Appears Normal, Ears Appear Normal and Oxygen (2L NC)
Respiratory: Clear to Auscultation and Non Labored Respirations; Negative Accessory Resp Muscle Use
Cardiac: Regular Rhythm and S1/S2
GI: Soft, Nontender, Nondistended and Normal Bowel Sounds
Skin: Warm, Dry and Rash (RLE erythema has improved per pt )
Neuro: Awake and Alert
Psych: Calm and Intact Judgement/Insight
Data Reviewed
-
Ultrasound: Report Reviewed by me
Labs: Labs Reviewed by me
[2025-03-08] MEDS: SENOKOT-S 1 TABLET PO (11:23)
[2025-03-08] MEDS: MIRALAX 17 GRAMS PO (11:23)
--- NOTE | 2025-03-08 11:52 | W.PN.ID1 ---
Date of Service
Date of Service: March 08, 2025
Today's Communication
- cefazolin 2 gm IV [id number] another day - then can transition to keflex 500 mg PO QID through 03/18
Assessment / Plan
Nonpurulent Cellulitis
- blood cultures x2 no growth to date
- mrsa screen negative
- compression and elevation of the leg
- cefazolin 2 gm IV [id number] another day - then can transition to keflex 500 mg PO QID through 03/18
- lyme serologies expected to remain positive for decades once seroconversion has occurred; current rash is not consistent with lyme disease
Chief Complaint
-: Cellulitis
Subjective / Review of Systems
afebrile
bp stable
no complaints
Vital Signs / Physical Exam
Vital Signs
Vital Signs
Temp Pulse Resp BP Pulse Ox
98.5 F 85 16 109/71 96
03/08/25 08:02 03/08/25 08:26 03/08/25 08:02 03/08/25 08:26 03/08/25 11:40
Physical Exam
Constitutional: No Acute Distress
Cardiovascular: Regular Rate and S1/S2; Negative Murmur or Rub
Pulmonary: Clear and Symmetric; Negative Wheezes or Rales
Gastrointestinal: Soft, Non Tender, Non Distended and Normal Bowel Sounds
Skin: Warm, Dry and Rash (dependent quad remains quite red, swollen, tender; ankle also with some erythema and tenderness); Negative Jaundice
Objective Data
Lab Data
Lab Results
03/08/25 06:49
03/08/25 06:49
PT 30.6 Sec (11.4-14.6) H 03/08/25 06:49
INR 2.95 03/08/25 06:49
Estimated Creat Clear 42 ml/min 03/08/25 06:49
Lactic Acid 1.4 mmol/L (0.7-2.0) 03/04/25 12:23
Total Bilirubin 1.6 mg/dl (0.2-1.3) H 03/05/25 06:20
AST 29 U/L (14-36) 03/05/25 06:20
ALT 26 U/L (0-35) 03/05/25 06:20
Alkaline Phosphatase 195 U/L (38-126) H 03/05/25 06:20
Most recent labs reviewed.
Micro Results:
03/04/25 12:23 Blood Culture - Preliminary
Blood/Venous No Growth in 72 hours- Final report to follow
03/04/25 12:23 Blood Culture - Preliminary
Blood/Venous No Growth in 72 hours- Final report to follow
03/05/25 06:46 MRSA Screen - Final
Nose No Methicillin Resistant Staphylococcus aureus isolated.
[2025-03-08 15:00] VITALS: BP 148/73
[2025-03-08] MEDS: COUMADIN 2.5 MG PO (17:06)
[2025-03-08 22:50] VITALS: BP 96/62
[2025-03-09] MEDS: ROXICODONE 5 MG PO (00:03)
[2025-03-09] MEDS: ANCEF 10 IV ×2 (00:03→08:00)
[2025-03-09] MEDS: DULCOLAX 10 MG RECTAL (02:41)
[2025-03-09 05:29] VITALS: BMI 30.5
[2025-03-09 07:00] VITALS: BP 159/83
[2025-03-09 07:10] LABS: INR 2.63; PT 28.1 Sec (11.4-14.6)
[2025-03-09 07:12] LABS: Hematocrit 46.0 % (37.0-47.0); Hemoglobin 13.3 g/dL (12.0-16.0); Mean Corp Hgb Conc. 28.9 g/dL (33.0-37.0); Mean Corpuscular Volume 92.4 fL (81.0-99.0); Platelet Count 173 10^3/uL (130-400); Red Cell Dist. Width 18.2 % (11.5-14.5)
[2025-03-09 07:28] LABS: Blood Urea Nitrogen 26 mg/dl (7-17); Calcium 8.3 mg/dl (8.4-10.2); Carbon Dioxide 32 mmol/L (22-30); Chloride 96 mmol/L (98-107); Estimated Creatinine Clearance 53 ml/min; Glucose 126 mg/dl (70-99); Potassium 4.2 mmol/L (3.5-5.1); Sodium 134 mmol/L (135-145); eGFR > 60.00
[2025-03-09] MEDS: ADVAIR HFA 115/21 MCG INHALER 2 PUFF INH (07:36)
[2025-03-09] MEDS: NEURONTIN 300 MG PO (07:57)
[2025-03-09] MEDS: ASPIR LOW (ENTERIC COATED) 81 MG PO (07:57)
[2025-03-09] MEDS: VISBIOME 1 CAP PO (07:57)
[2025-03-09] MEDS: PACERONE 200 MG PO (07:58)
[2025-03-09] MEDS: LIPITOR 20 MG PO (07:59)
[2025-03-09] MEDS: LASIX 60 MG PO (07:59)
[2025-03-09] MEDS: VITAMIN C 1000 MG PO (07:59)
[2025-03-09] MEDS: LOPRESSOR 25 MG PO (07:59)
--- NOTE | 2025-03-09 09:04 | W.PN.HOSP.TC ---
Today's Communication/Plan
-
DC home today
Assessment / Plan
Assessment / Plan
HPI: 79-year-old female with medical history of HFpEF, HOCUM (on Camzyos), persistent A-fib, and mechanical mitral valve replacement (on warfarin) who presented with right lower extremity pain and erythema. No open wounds or drainage. No focal
injuries.
A/P:
# Right lower extremity erythema/cellulitis
Erythema and pain improving
No open wounds or drainage
Discontinued vancomycin/ clindamycin,
Current cefazolin 2 gm IV [id number] -> Keflex 500 mg PO QID through 03/18
Admission blood cultures are negative
Lower extremity Doppler negative for DVT
Appreciate ID input
Lyme serology was sent for completeness sake, per ID, expected to remain positive for decades once seroconversion has occurred; current rash is not consistent with lyme disease
Pain control as needed, Tylenol for fever
# Acute hypoxic resp insufficiency
Pt was placed on 2L NC, weaned to RA
Reviewed nocturnal pulse Ox , pt had 1 desat event
Discuss the need for home O2 (nocturnal use) with patient. Patient is adamant that she does NOT want home O2. She does NOT want us to set up home O2 for her.
# BUTCH, resolved
# Hypokalemia, resolved
# HFpEF, Chronic, compensated
Continue home metoprolol tartrate 25 mg twice daily
Continue home Lasix 60 mg p.o. twice daily
# Paroxysmal A-fib
Continue home amiodarone 200 mg daily and metoprolol tartrate 25 mg p.o. twice daily
Anticoagulated with warfarin considering mechanical mitral valve, INR goal 2.5-3.5
# HOCM
Continue home Camzyos
# COPD, No evidence of acute exacerbation
Continue scheduled inhalers
# Hyperlipidemia
Continue atorvastatin 10 mg daily
DVT prophylaxis: Warfarin, daily INR
CODE STATUS: Full code
Dispo: HH
DW CM
Anticipated Discharge: Today
Subjective/Interval History
-
Date of Service: March 09, 2025
Objective Data
-
Labs:
Laboratory Results
03/09/25
06:35
WBC 7.6
Hgb 13.3
Hct 46.0
Plt Count 173 D
PT 28.1 H
INR 2.63
Sodium 134 L
Potassium 4.2
Chloride 96 L
Carbon Dioxide 32 H
BUN 26 H
Creatinine 0.8
Glucose 126 H
Calcium 8.3 L
Vital Signs:
Vital Signs
Temp Pulse Resp BP Pulse Ox
37.7 C 71 16 159/83 93
03/09/25 07:00 03/09/25 07:59 03/09/25 07:39 03/09/25 07:59 03/09/25 07:39
I&O
03/08/25 03/09/25 03/10/25
06:59 06:59 06:59
Intake Total 1680 / 1680 2800 / 2800
Balance 1680 / 1680 2800 / 2800
Review of Systems
-
History Source: Patient
Skin: Reports Sores (redness and swelling of RLE has improved )
Physical Exam
-
General: Well Developed, Well Nourished, No Apparent Distress, Comfortable and Conversant
HEENT: Normocephalic, Atraumatic, Nose Appears Normal and Ears Appear Normal
Respiratory: Clear to Auscultation and Non Labored Respirations; Negative Accessory Resp Muscle Use
Cardiac: Regular Rhythm and S1/S2
GI: Soft, Nontender, Nondistended and Normal Bowel Sounds
Skin: Warm, Dry and Rash (RLE erythema has improved per pt )
Neuro: Awake and Alert
Psych: Calm and Intact Judgement/Insight
Data Reviewed
-
Ultrasound: Report Reviewed by me
Labs: Labs Reviewed by me
[2025-03-09 09:08] VITALS: BP 133/66; PULSE 110; O2SAT 85
--- NOTE | 2025-03-09 09:50 | CM ---
Patient seen at bedside
discharge today`
declines oxygen therapy - had nocturnal last night
agreeable to VN - prefer [facility] (had in past)
spoke with Rose at [facility] she stated they do go to [facility] (enter referral under [place]) - referral entered in [facility] Visits office
IMM explained & signed. In chart
plan: Home with [facility] office Fax #: [phone]
patient will transport self-drove here
--- NOTE | 2025-03-09 10:41 | W.DCSUMMARY ---
Discharge Summary
Discharge Data
Date of Admission: 03/04/25
Date of Discharge: 03/09/25
Total time spent discharging patient (in min): 40
-
Pending Results: No
Hospital Course
Principal Diagnosis:
Right lower extremity erythema/cellulitis
Acute hypoxic respiratory insufficiency with nocturnal desaturation
BUTCH, resolved
Hypokalemia, resolved
Chronic Diagnoses:�
Paroxysmal A-fib, continue home amiodarone 200 mg daily and metoprolol tartrate 25 mg p.o. twice daily, anticoagulated with warfarin
HOCM, on home Camzyos
COPD
Hyperlipidemia
HFpEF, chronic, compensated
Consultations:�
Infectious disease
Procedures:�
None
Clinical course:�
This is a 79-year-old female with past medical history as stated above, who presented with right leg pain and erythema, without open wound or drainage.
Problem 1:
Right lower extremity erythema/cellulitis.
She initially received vancomycin/ clindamycin, which were later changed to cefazolin 2 gm IV [id number]. She was discharged with Keflex 500 mg PO QID through 03/18 per ID.
Her lower extremity doppler was negative for DVT.
Problem 2:
Acute hypoxic respiratory insufficiency with nocturnal desaturation.
The patient is adamantly refusing home oxygen.
She has been informed that she can follow-up with her PCP for home O2 set up when and if she changes her mind.
As for the rest of her medical problems, they were stable during her hospital stay.
Discharge Plan
-
Patient Disposition: Home with Home Care
Discharge Diagnosis/Procedures: Right lower extremity erythema/cellulitis;
Acute hypoxic respiratory insufficiency with nocturnal desaturation
Condition: Fair
Diet: As tolerated, Low Fat and Low Cholesterol
Activity: As tolerated
Driving Restrictions: As prior to admission
Activity Restrictions/Additional Instructions:
You can follow up with your PCP for home O2 to be set up if you change your mind about getting home oxygen
Referrals:
UNKNOWN - PT DOES,NOT KNOW [Family Provider] - in less than 1 week
Additional Discharge Medication Instructions: Continue oral antibiotic Keflex 500 mg PO every 6 hours through 03/18
Prescriptions:
New
cephalexin 500 mg capsule
500 mg PO Q6H 10 Days Qty: 40 0RF
Continued
albuterol sulfate [Ventolin HFA] 90 MCG/PUFF HFA aerosol inhaler
2 puff inhalation R TIDPRN PRN (Reason: SOB)
atorvastatin [Lipitor] 20 mg Tablet
20 mg PO DAILY
fluticasone propion-salmeterol 113-14 mcg/actuation aerosol powdr breath activated
2 inh INHALATION R BID
acetaminophen [Tylenol] 325 mg Tablet
650 mg PO Q4HPRN PRN (Reason: MILD PAIN)
ascorbic acid (vitamin C) [Vitamin C] 500 mg Tablet
1,000 mg PO DAILY
warfarin [Jantoven] 2 mg tablet
2.5 mg PO QPM
aspirin 81 mg Tablet,Delayed Release (Dr/Ec)
81 mg PO DAILY
furosemide 20 mg Tablet
60 mg PO BID
metoprolol tartrate 25 mg tablet
25 mg PO BID
gabapentin 300 mg capsule
300 mg PO BID
amiodarone 200 mg tablet
200 mg PO DAILY Qty: 30 0RF
Camzyos 5 mg Capsule
10 mg PO DAILY Qty: 30 0RF
Discharge Orders:
Discharge Patient (As Directed); Ordered 03/09/25
Ordered By: Radha Ochoa
Discharge Date and Time
Discharge Date/Time: 03/09/25 10:44
Print Language: PANAMANIAN
[2025-03-10 15:22] LABS: Lyme Ab Western Blot IgG Positive (Negative); Lyme Ab Western Blot IgM Negative (Negative)
== END 2025-03-09 10:44 | disposition home health service (06) | DRG 603 ==
LOC: 3 WEST ACU 18:20
PROVIDERS: Student in an Organized Health Care Education/Training Program; ADMITTING PHYSICIAN Internal Medicine; ATTENDING PHYSICIAN Internal Medicine; CONSULT PHYSICIAN Student in an Organized Health Care Education/Training Program; EMERGENCY PHYSICIAN Emergency Medicine
DX: L03.115 Cellulitis of right lower limb (principal); I42.1 Obstructive hypertrophic cardiomyopathy; I50.32 Chronic diastolic (congestive) heart failure; N17.9 Acute kidney failure, unspecified; I48.19 Other persistent atrial fibrillation; Z79.01 Long term (current) use of anticoagulants; Z87.891 Personal history of nicotine dependence; E87.6 Hypokalemia; J44.9 Chronic obstructive pulmonary disease, unspecified; I11.0 Hypertensive heart disease with heart failure; Z95.2 Presence of prosthetic heart valve; R09.02 Hypoxemia; R06.89 Other abnormalities of breathing; Z79.899 Other long term (current) drug therapy
CPT/HCPCS: 73630; 80048; 80053; 80202; 83605; 83735; 85025; 85027; 85610; 86617; 86618; 87040; 87070; 93005; 93971; 94640; 94762; 96365; 96366; 97116; 97162; 97166; 97530; 97535; 99285

== ENCOUNTER → 2025-03-11 10:42 | Outpatient (REF) | payer MEDICARE, SELFPAY ==
[2025-03-11 12:01] LABS: Magnesium 2.6 mg/dl (1.6-2.3)
== END ==
LOC: SDSPAT 10:42
PROVIDERS: ATTENDING PHYSICIAN Internal Medicine Cardiovascular Disease
DX: I48.0 Paroxysmal atrial fibrillation (principal)
CPT/HCPCS: 36415; 75572; 83735; 86850; 86900; 86901; Q9967

== ENCOUNTER 2025-03-16 06:33 | Day surgery (SDC) | payer MEDICARE, SELFPAY ==
[2025-03-11 10:55] VITALS: BMI 29.0
[2025-03-16] VITALS (15 sets, daily range): BP systolic 110–165; BP diastolic 51–83; BMI 28.7
[2025-03-16 08:14] LABS: INR 2.62; PT 28.4 Sec (11.4-14.6)
--- NOTE | 2025-03-16 10:01 | ITS.CL.ABL ---
Certified Technician Specialist - Ablation
Ablation
Procedure Report:
ELECTROPHYSIOLOGIC STUDY AND POSSIBLE ABLATION
DATE: March 16, 2025
Primary Care Provider: Dr Antonieta Clark
Primary highway landscape architect: Dr Yahaira Evans
INDICATION:
Symptomatic Atrial Fibrillation.
Persistent
HISTORY: See H and P.
Symptomatic AF, poorly controlled with attempted medical therapy.
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
She has also been followed at [facility] and has been initiated on Mavacamten for symptomatic HOCM.
She is highly symptomatic with atrial fibrillation. Antiarrhythmic drug therapy with amiodarone.
She has a history of hypertrophic cardiomyopathy as well as prior mitral valve replacement for endocarditis.
She underwent cryoballoon PVI on 04/21/2023.
She was admitted in September 2024 with heart failure exacerbations.
She then underwent TMVR 10/15/2024 for worsening bioprosthetic mitral regurgitation.
She has also demonstrated sick sinus syndrome as well as AV srini conduction abnormalities. We have discussed in the past that ultimately she may require permanent pacemaker to best treat her symptomatic bradycardia.
[id number] score of 4 (+ HOCM). On warfarin and tolerating without any major bleeding complications.
Transesophageal echocardiogram performed this morning, March 16, 2025 finds no evidence of left atrial appendage thrombus.
HAS-BLED: 1
Age
CHADSVASc: 4
HFpEF
Age
F Gender
ANTIARRHYTHMIC DRUG: Amiodarone 200 mg daily
ANTICOAGULATION: Warfarin.
'TIME-OUT': called and confirmed.
SEDATION/ANESTHESIA: provided via the anesthesia department using general anesthesia.
PROCEDURE:
Ultrasound Guidance with real-time visualization of needle insertion and vessel patency performed by wi for femoral venous Vascular Access.
Under real-time US guidance, the needle was advanced with negative pressure into the vein. The needle was seen entering the vessel lumen with a good return of dark red flow, the syringe was removed, non-pulsatile, dark red blood low was noted and
the wire was passed without difficulty, then the needle was removed. US confirmed the wire was in the vein, not going into an artery,
Images were taken and saved for the patient's permanent record. Imaging findings typical femoral venous anatomy. Direct visualization of needle puncture into the femoral vein was observed and recorded.
A decapolar CS catheter was placed within the CS for mapping and pacing.
The intracardiac ultrasound catheter was positioned in the RA for continuous intracardiac ultrasound imaging.
Heparin bolus and infusion to target ACT at 300 -350 seconds was administered. Transseptal puncture was performed. This entailed advancing a sheath with dilator into the superior vena cava and withdrawing both (monitoring intracardiac ultrasound,
fluoroscopy and tip pressure) with the tip oriented toward the atrial septum. The fossa ovalis was engaged (indicated by sudden displacement of the sheath tip as well as tenting of the fossa seen on intracardiac ultrasound).
Transseptal puncture was performed. Left atrial catheter position was confirmed by echocardiographic imaging, pressure monitoring (LA mean pressure 16 mm Hg) and fluoroscopy. The sheath was advanced over the dilator and positioned in the left
atrium.
The Sphere 9 multipolar mapping/ablation Sphere-9 catheter was positioned through the transseptal sheath for high density mapping.
Geometry and voltage mapping was performed using the mySchoolNote[employer] mapping system for three-dimensional electroanatomical mapping.
Catheter positioning was guided and confirmed using both I.C.E. and fluoroscopy.
Cardioversion resulted in sinus rhythm briefly but atrial fibrillation rapidly recurred.
High density electroanatomical three-dimensional mapping demonstrated four PVs: LSPV, LIPV, RSPV, RIPV.
Ablation strategy included PVI as well as mapping for extra PV contributors to atrial fibrillation which would also be targeted if present.
There is reconnection at the right superior pulmonary vein towards its anterior superior quadrant.
There is reconnection of the left superior vein along its superior posterior quadrant
Delivery of pulse electric field energy we isolated the veins.
After accomplishing pulmonary venous isolation, mapping identified additional areas likely to be extra PV contributors to atrial fibrillation. These areas demonstrated patchy low voltage as well as complex fractionated electrograms. These areas can
be sites for the formation of rotors which can drive and maintain atrial fibrillation. These areas are known to be significant contributors to initiation and perpetuation of atrial fibrillation.
Additional energy applications/additional ablation sets targeted extra PV contributors to atrial fibrillation.
Targets for additional PFA ablation included:
LA posterior wall targeted with pulsed electric field energy isolating the posterior wall of the left atrium
After ablation of the posterior wall, additional targets were addressed:
LA inferior floor
The ridge of tissue between the left atrial appendage and the left sided pulmonary veins (Ligament of Rory )
These areas were ablated using pulsed electric field energy eliminating the extra PV contributors to atrial fibrillation.
Post ablation mapping finds entrance and exit block at each of the pulmonary veins, the LA posterior wall and at the additional lines at Inferior/floor of the LA and the Ligament of Marshal rendering the sites no longer able to contribute to atrial
fibrillation.
Programmed electrostimulation including burst atrial pacing as well the delivery of decremental extrastimuli down to atrial effective refractory period and no sustained arrhythmias could be induced.
I.C.E. :
Pre-Ablation Post-Ablation
LVEF: 55 % 55 %
WMA: none none
Pericardial effusion: none none
LA Pressure (mmHg) 16 22
COMPLICATIONS:
none
SUMMARY:
- Mapping and ablation to isolate the PVs resulting in electrical isolation of the pulmonary veins
- Additional AF ablation sets X 3 after PVI (LA posterior wall, Inf/floor of the LA posterior wall) resulting in elimination of the targeted extra PV contributors to atrial fibrillation (Post wall, Inf LA floor)
- 3-D Electroanatomical Mapping
- Intracardiac Ultrasound
- Ultrasound guidance for vascular access
RECOMMENDATIONS:
- Observe in monitored bed.
- Maintain oral anticoagulation, warfarin with goal INR 2.5-3.5 (there is no left atrial appendage thrombus on today's transesophageal echo but there is heavy 'smoke').
- Continue amiodarone and we can reassess as an outpatient regarding ongoing need for amiodarone
- Will plan for office visit with me in approximately 3 months post ablation
- Continue cardiovascular care with Dr Yahaira Evans (05/16/25)
Copy to:
Primary Care Provider: Dr Antonieta Clark
Primary highway landscape architect: Dr Yahaira Evans
[2025-03-16 11:34] LABS: ACT-LR - POC > 397 Seconds (116-155)
[2025-03-16 11:34] LABS: ACT-LR - POC > 397 Seconds (116-155)
[2025-03-16] MEDS: LASIX 80 MG IV (12:37)
--- NOTE | 2025-03-16 14:44 | PTCARENOTE ---
pt received from grinding and polishing laborer to room 2246. pt AAOX3, denies pain. pt educated on activity restrictions. right groin site CDI. right dp pulse weakly palpable, confirmed via doppler. old cellulitis noted on right leg- pt notes is much improved from
before and states is taking keflex. pt on 2L nasal cannula, sat 95%. lung sounds diminished in bases. hypoactive bowel sounds. pt able to void small amount via purewick, clear yellow urine. see worklist for full nursing assessment. pt updated on
plan of care- oriented to room and unit.
--- NOTE | 2025-03-16 15:17 | CM ---
Chart reviewed. Patient is independent of ADLS, lives alone in a 2nd floor apartment, [address], [address] Field office placed a referral for Paul CORMIER CM to followup with Paul to see if the patient is open.
[2025-03-16] MEDS: KEFLEX 500 MG PO ×2 (15:25→21:31)
[2025-03-16] MEDS: COUMADIN 2.5 MG PO (17:39)
[2025-03-16] MEDS: LOPRESSOR 25 MG PO (19:09)
[2025-03-16] MEDS: NEURONTIN 300 MG PO (19:09)
[2025-03-16] MEDS: ADVAIR HFA 115/21 MCG INHALER 2 PUFF INH (19:41)
--- NOTE | 2025-03-17 03:03 | PTCARENOTE ---
Assumed care on pt at 2300, aaox3, SR on tele , HR 80's. Denies c/o CP or SOB.BP stable. Ambulates with assistx1, bed alarm in place. R groin site with dsg CDI. Call burris within reach, POC ongoing.
[2025-03-17 03:56] VITALS: BP 128/62
[2025-03-17] MEDS: KEFLEX 500 MG PO ×2 (03:57→08:26)
[2025-03-17 04:39] VITALS: BMI 28.3
[2025-03-17 04:52] LABS: INR 2.71; PT 29.1 Sec (11.4-14.6)
[2025-03-17 04:59] LABS: Blood Urea Nitrogen 31 mg/dl (7-17); Calcium 8.4 mg/dl (8.4-10.2); Carbon Dioxide 28 mmol/L (22-30); Chloride 106 mmol/L (98-107); Estimated Creatinine Clearance 43 ml/min; Glucose 142 mg/dl (70-99); Magnesium 2.5 mg/dl (1.6-2.3); Potassium 3.7 mmol/L (3.5-5.1); Sodium 141 mmol/L (135-145); eGFR 57.66
[2025-03-17 05:05] LABS: Hematocrit 44.7 % (37.0-47.0); Hemoglobin 12.8 g/dL (12.0-16.0); Mean Corp Hgb Conc. 28.6 g/dL (33.0-37.0); Mean Corpuscular Volume 91.2 fL (81.0-99.0); Platelet Count 167 10^3/uL (130-400); Red Cell Dist. Width 18.1 % (11.5-14.5)
[2025-03-17 07:26] VITALS: BP 150/60
[2025-03-17] MEDS: ADVAIR HFA 115/21 MCG INHALER 2 PUFF INH (07:44)
[2025-03-17] MEDS: LIPITOR 20 MG PO (08:26)
[2025-03-17] MEDS: LOPRESSOR 25 MG PO (08:26)
[2025-03-17] MEDS: ASPIR LOW (ENTERIC COATED) 81 MG PO (08:26)
[2025-03-17] MEDS: LASIX 60 MG PO (08:26)
[2025-03-17] MEDS: NEURONTIN 300 MG PO (08:26)
[2025-03-17] MEDS: LASIX 20 MG IV (09:25)
[2025-03-17] MEDS: KCL 40 MEQ PO (09:25)
--- NOTE | 2025-03-17 09:59 | W.PN.CARDCBS ---
Today's Communication / Plan
-
post ablation
mild CHF, IV diuresis
OOB ambulate, if sats >88% on RA plan for d/c home
Impression / Plan
-
Primary Care Provider: Dr Antonieta Clark
Primary implementation manager: Dr Yahaira Evans
Impression:
Symptomatic persistent Atrial fibrillation prior PVI 2022
post PVI/PW 03/16/25
prior MARIANELA thrombus cleared by YUE pre procedure
acute on chronic HFpEF, LA pressure 22
HOCM
MVR 2014 for endocarditis, then redo MVR 09/2024
HTN
Hyperlipidemia
PAD
Severe pulmonary HTN 74mmHg
COPD/Emphysema
History of tobacco abuse.
Ambulatory dysfunction and deconditioning.
Recent hospital admission, D/C 03/09/2025, RLE cellulitis, BUTCH, and hypoxemia.
SSS
Plan:
post ablation feels good
IV diuresis, -1kg
tele SR with 1deg AVB and prolonged QTc
mild hypoxia, will give another dose of IV lasix this am
replete lytes to keep K >4 and Mg>2
OAC Warfarin, INR goal 2-3, this am 2.71
Will stop Amiodarone and continue metoprolol
Activity restrictions reviewed
f/u Dr. Syed in 3 mo
home 24 hrs after completion of anesthesia as pt plans to drive home
and oxygen sats >88%
Progress Note - Sweater Designer
Subjective
Date of Service: March 17, 2025
denies cp, sob
Objective
Labs:
03/17/25 04:11
03/17/25 04:11
Labs
Hgb 12.8 g/dL (12.0-16.0) 03/17/25 04:11
Hct 44.7 % (37.0-47.0) 03/17/25 04:11
Plt Count 167 10^3/uL (130-400) 03/17/25 04:11
PT 29.1 Sec (11.4-14.6) H 03/17/25 04:11
INR 2.71 03/17/25 04:11
Sodium 141 mmol/L (135-145) 03/17/25 04:11
Potassium 3.7 mmol/L (3.5-5.1) 03/17/25 04:11
BUN 31 mg/dl (7-17) H 03/17/25 04:11
Creatinine 1.0 mg/dL (0.6-1.0) 03/17/25 04:11
Glucose 142 mg/dl (70-99) H 03/17/25 04:11
Vital Signs and I&O:
Vital Signs
Temp Pulse Resp BP Pulse Ox
98.3 F 78 18 150/60 95
03/17/25 07:27 03/17/25 07:46 03/17/25 07:46 03/17/25 07:26 03/17/25 07:46
Vital Signs
Temp Pulse Resp BP Pulse Ox
98.3 F 78 18 150/60 95
03/17/25 07:27 03/17/25 07:46 03/17/25 07:46 03/17/25 07:26 03/17/25 07:46
Intake & Output
03/15/25 03/16/25 03/17/25 03/18/25
06:59 06:59 06:59 06:59
Intake Total 480 / 480
Output Total 500 / 500
Balance -20 / -20
Physical Exam
Physical Exam
NAD< aOX3
S1, S2, RRR
Diminished t/o, no rales or wheezes, non labored
SNTND bsx4
R fem site c/d/i no HT, soft
[2025-03-17 11:02] VITALS: BP 122/52
--- NOTE | 2025-03-17 12:40 | W.PN.CARDCBS ---
Today's Communication / Plan
-
Remains in sinus rhythm
Amiodarone discontinued
Maintain warfarin with goal INR 2�3
Stable for discharge to home today
Impression / Plan
-
Primary Care Provider: Dr Antonieta Clark
Primary record tabulating clerk: Dr Yahaira Evans
Impression:
Symptomatic persistent Atrial fibrillation prior PVI 2022
post PVI/PW 03/16/25
prior MARIANELA thrombus cleared by YUE pre procedure
acute on chronic HFpEF, LA pressure 22
HOCM
MVR 2014 for endocarditis, then redo MVR 09/2024
HTN
Hyperlipidemia
PAD
Severe pulmonary HTN 74mmHg
COPD/Emphysema
History of tobacco abuse.
Ambulatory dysfunction and deconditioning.
Recent hospital admission, D/C 03/09/2025, RLE cellulitis, BUTCH, and hypoxemia.
SSS
Plan:
Has remained in sinus rhythm after ablation yesterday.
We have stopped amiodarone given some mild QT interval prolongation.
Given elevated left atrial pressure at yesterday's EP study, I did give her IV Lasix yesterday and she has diuresed 1 kg.
Overall doing well, warfarin has been maintained with INR of 2.71 and goal INR of 2�3.
We reviewed activity restrictions and follow-up instructions.
Stable for discharge to home today.
All of her questions have been answered.
Progress Note - Licensed Reactor Operator
Subjective
Date of Service: March 17, 2025
She tells me she feels 'great' today. No chest pain shortness of breath palpitations or dizziness.
Objective
Labs:
03/17/25 04:11
03/17/25 04:11
Labs
Hgb 12.8 g/dL (12.0-16.0) 03/17/25 04:11
Hct 44.7 % (37.0-47.0) 03/17/25 04:11
Plt Count 167 10^3/uL (130-400) 03/17/25 04:11
PT 29.1 Sec (11.4-14.6) H 03/17/25 04:11
INR 2.71 03/17/25 04:11
Sodium 141 mmol/L (135-145) 03/17/25 04:11
Potassium 3.7 mmol/L (3.5-5.1) 03/17/25 04:11
BUN 31 mg/dl (7-17) H 03/17/25 04:11
Creatinine 1.0 mg/dL (0.6-1.0) 03/17/25 04:11
Glucose 142 mg/dl (70-99) H 03/17/25 04:11
Vital Signs and I&O:
Vital Signs
Temp Pulse Resp BP Pulse Ox
98.7 F 79 20 122/52 89
03/17/25 11:02 03/17/25 12:15 03/17/25 11:02 03/17/25 11:02 03/17/25 12:00
Vital Signs
Temp Pulse Resp BP Pulse Ox
98.7 F 79 20 122/52 89
03/17/25 11:02 03/17/25 12:15 03/17/25 11:02 03/17/25 11:02 03/17/25 12:00
Intake & Output
03/15/25 03/16/25 03/17/25 03/18/25
06:59 06:59 06:59 06:59
Intake Total 480 / 480
Output Total 500 / 500
Balance -20 / -20
Physical Exam
Physical Exam
Well-appearing, no acute distress
Regular rate and rhythm with normal S1 and S2, no S3 no S4 is a grade 1/6 apical holosystolic murmur no rubs. PMI normally placed
Lungs are clear to auscultation bilaterally without wheezes rales or rhonchi
EXTR show +1 pretibial edema bilaterally
Neurologic exam is nonfocal
Abdomen soft nontender nondistended with normoactive bowel sounds
--- NOTE | 2025-03-17 13:07 | W.DS.TRANS ---
DC Summary - Shag Truck Driver
-
Discharge Instructions:
Sleep Apnea Risk Low
Discharge Diagnosis/Procedures AFib, s/p ablation
Diet Low Cholesterol
Driving Restrictions No driving for 24 hours
Instructions:
Stand-Alone Forms: DC Instructions- Cath/EP Lab
Changes to Home Medications: Yes
Discharge Medications:
DC Medications w/original date entered in [employer]
atorvastatin 20 mg tablet (Lipitor) 20 mg PO DAILY High Cholesterol 06/21/23
acetaminophen 325 mg tablet (Tylenol) 650 mg PO Q4HPRN PRN MILD PAIN 08/23/24
ascorbic acid (vitamin C) 500 mg tablet (Vitamin C) 1,000 mg PO QPM Supplement 08/23/24
warfarin 2 mg tablet (Jantoven) 2.5 mg PO QPM Blood Clot Prevention/Tx 10/03/24
aspirin 81 mg tablet,delayed release 81 mg PO DAILY Heart Disease/Condition 01/20/25
furosemide 20 mg tablet 60 mg PO BID Fluid Retention/Swelling 01/20/25
metoprolol tartrate 25 mg tablet 25 mg PO BID Heart Disease/Condition 01/20/25
gabapentin 300 mg capsule 300 mg PO BID moderate pains 02/22/25
mavacamten 5 mg capsule (Camzyos) 10 mg (2 x 5 mg) PO DAILY Heart disease/condition #30 caps 02/24/25
cephalexin 500 mg capsule 500 mg PO Q6H 10 days #40 caps 03/09/25
fluticasone 113mcg-salmeterol 14mcg/actuation breath act,powder sensor 1 inh inhalation BID 03/16/25
Home Medication Changes
stopped amio
Pending Results: No
== END 2025-03-17 13:01 | disposition home or self-care (01) ==
LOC: CATH 06:33
PROVIDERS: Nurse Practitioner; ATTENDING PHYSICIAN Internal Medicine Cardiovascular Disease; FAMILY PHYSICIAN Family Medicine; OTHER PHYSICIAN Internal Medicine Cardiovascular Disease
DX: I48.19 Other persistent atrial fibrillation (principal); E78.5 Hyperlipidemia, unspecified; I08.3 Combined rheumatic disorders of mitral, aortic and tricuspid valves; I11.0 Hypertensive heart disease with heart failure; I25.10 Atherosclerotic heart disease of native coronary artery without angina pectoris; I27.20 Pulmonary hypertension, unspecified; I42.1 Obstructive hypertrophic cardiomyopathy; I49.5 Sick sinus syndrome; I44.0 Atrioventricular block, first degree; I50.33 Acute on chronic diastolic (congestive) heart failure; I73.9 Peripheral vascular disease, unspecified; J43.9 Emphysema, unspecified; R09.02 Hypoxemia; Z87.891 Personal history of nicotine dependence; Z79.01 Long term (current) use of anticoagulants; Z79.51 Long term (current) use of inhaled steroids; Z79.82 Long term (current) use of aspirin; Z79.899 Other long term (current) drug therapy; Z88.0 Allergy status to penicillin; Z95.3 Presence of xenogenic heart valve
CPT/HCPCS: 93312; 93320; 93325; C1733; C1894; C1769; C1766; C1730; C1892; C1759; 80048; 83735; 85027; 85347; 85610; 93005; 93656; 93657; 94640; C1760

== ENCOUNTER 2025-04-02 10:00 | Emergency (ER) | payer MEDICARE, SELFPAY ==
[2025-04-02 10:03] VITALS: BP 150/61
[2025-04-02 10:19] VITALS: BP 172/78
[2025-04-02 10:21] VITALS: BMI 29.0
--- NOTE | 2025-04-02 10:32 | ED.GENMED ---
History of Present Illness
General
Chief Complaint: Breathing Problem
Source: patient
Time Seen by Provider: 04/02/25 10:15
History of Present Illness
History of Present Illness:
79-year-old female presents to the emergency room complaining of shortness of breath. Patient states that she began feeling short of breath during the night through the morning today. Yesterday she felt great and was active. No fever or chills.
She denies any sore throat or cough. She monitors her weight and it has been stable although she noticed increased welling in her lower extremities today. Patient was recently hospitalized for cellulitis of the right lower extremity and feels like
her right lower leg has become red again which concerns her for recurrence of her cellulitis. Patient was hospitalized here in early March for an ablation as well. She continues to take oral anticoagulation in the form of Coumadin. She states
she is on Coumadin because she developed a clot despite taking Eliquis. At rest she feels only mildly short of breath but with walking she has to stop after about 10 feet because she becomes extremely dyspneic.
Past History
Past History
ED Past Medical History: Arrthythmia (Atrial fibrillation), CHF, COPD, GERD, HTN, Valvular disease (Endocarditis) and Other
ED Past Surgical History: Appendectomy, Cardiac and Other
Social History
Tobacco: Non-smoker
Alcohol: None
Drug: None
Phy Exam
Physical Exam
Physical Exam:
General: Awake, Alert, Oriented X3. No acute distress.
Vitals: Mild increased work of breathing, not hypoxic on room air
Head: Atraumatic
Eyes: Pupils equal, EOMI
Throat: Airway intact, no exudates
Neck: Trachea midline
Lungs: Decreased breath sounds bilaterally
Heart: Regular rate, no murmurs
Abd: Soft, Nontender, No pulsatile mass
Neuro: Nonfocal
Skin: Warm, dry, no rash
Extremities: pulses equal b/l, 1+ edema
Scores
Heart Failure Risk
Heart Failure Risk Score: Not Applicable
Course
Orders/Labs/Results
Orders:
Orders
04/02/25 10:29
Ipratropium/Albuterol Sulfate [Duoneb] 3 ml INH R NOW STA
US Periph Venous LOWER Ext RT Urgent
Comment:
Reason For Exam: right leg pain, swelling
04/02/25 10:30
CR Chest - 2 Views Urgent
Comment:
Reason For Exam: sob
04/02/25 10:34
Electrocardiogram (*1) Urgent
Reason for Study: Shortness of Breath
EKG- Treatment ONCE
04/02/25 10:38
Basic Metabolic Panel Urgent
NT-proBNP Urgent
Prothrombin Time Urgent
Troponin I Urgent
04/02/25 10:40
COVID-19 Antigen Urgent
Source: Nasal Swab
Complete Blood Count/With Diff Urgent
Influenza A+B Rapid Molecular Urgent
LACI Source: Nasal Swab
Specimen Description:
04/02/25 13:15
CeFAZolin 2 GRAM [Ancef] 2 grams in 10 ml IV NOW
Abnormal Lab Results
04/02/25 04/02/25
10:38 10:40
RBC 5.41 H 10^6/uL
(4.20-5.40)
Hct 48.7 H %
(37.0-47.0)
MCH 26.2 L pg
(27.0-31.0)
MCHC 29.2 L g/dL
(33.0-37.0)
RDW 19.7 H %
(11.5-14.5)
Absolute Lymphs (auto) 0.5 L 10^3/uL
(1.2-3.4)
Absolute Monos (auto) 0.7 H 10^3/uL
(0.1-0.6)
Neutrophils % 82.3 H %
(42.2-75.2)
Lymphocytes % 6.6 L %
(20.5-51.1)
Monocytes % 9.4 H %
(1.7-9.3)
PT 26.5 H Sec
(11.4-14.6)
Potassium 3.4 L mmol/L
(3.5-5.1)
BUN 25 H mg/dl
(7-17)
Glucose 104 H mg/dl
(70-99)
04/02/25 10:40
04/02/25 10:38
Vital Signs
Initial and Last Documented VS:
Initial Vital Signs
Temp Pulse Resp BP Pulse Ox
97.7 F 71 16 150/61 92
04/02/25 10:03 04/02/25 10:03 04/02/25 10:03 04/02/25 10:03 04/02/25 10:03
Last Documented Vital Signs
Temp Pulse Resp BP Pulse Ox
97.7 F 68 15 156/62 100
04/02/25 10:03 04/02/25 11:30 04/02/25 11:30 04/02/25 11:00 04/02/25 11:15
MDM/Problems Addressed
Differential Diagnosis Includes:
CHF exacerbation, COPD exacerbation, anemia
MDM/Problems Addressed:
Patient presents complaining of both shortness of breath as well as redness of her right lower extremity. From a shortness of breath standpoint the patient is not anemic. Chest x-ray shows no acute abnormalities in my estimation. BNP is on the
lower side for her. She does not really have significant peripheral edema and her weight is stable. She was treated with a DuoNeb which helped her feel better. Ultrasound of the lower extremity shows no DVT. There is a superficial
thrombophlebitis. Patient's on Coumadin and her INR is therapeutic. Think her shortness of breath was related to her COPD which has improved with a neb treatment. She she has no DVT. Her INR is therapeutic. From a right lower extremities
redness standpoint we will treat her for potential cellulitis. She received a dose of Ancef IV a prescription was sent for Keflex. Return for worsening of either her shortness of breath or right leg weakness particular she develops a fever
*Radiology
Radiology exam reviewed: radiology read reviewed
*Pulse Oximetry
SaO2: 95
Oxygen Mode of Delivery: Room air
Patient hypoxic: no
*EKG
Interpreted by ED Provider?: Yes
Heart Rate: 62
Rate: normal
Rhythm: sinus
Interval: first degree heart block and long QT
Ischemia: non-specific ST changes
*Oxygen Therapy Teacher Interpretation
Rate: normal
Interpretation: normal
Rhythm: sinus
*Critical Care Note
Total Time (30-74mins, 75-104mins- exclusive of procedures): Not Applicable
ED Attending Note
-
Portions of this chart may have been created with voice recognition software.� Occasional wrong word or��sound alike� substitutions may have occurred due to the inherent limitations of voice recognition software.
Discharge Plan
Departure
Patient Disposition: Home (Routine Discharge)
Date of Disposition: 04/02/25
Time of Disposition: 13:16
Patient with high blood pressure during this ER visit?: Yes
Condition: Good
Discharge Problem:
Cellulitis of right leg, Superficial thrombophlebitis, Mild shortness of breath, COPD (chronic obstructive pulmonary disease)
Instructions: Shortness of Breath (Dyspnea) (DC), Cellulitis (skin infection) in adults - ED (DC), BLOOD PRESSURE
Prescriptions:
New
cephalexin 500 mg capsule
500 mg PO QID 7 Days Qty: 28 0RF
No Action
atorvastatin [Lipitor] 20 mg Tablet
20 mg PO DAILY
acetaminophen [Tylenol] 325 mg Tablet
650 mg PO Q4HPRN PRN (Reason: MILD PAIN)
ascorbic acid (vitamin C) [Vitamin C] 500 mg Tablet
1,000 mg PO QPM
warfarin [Jantoven] 2 mg tablet
2.5 mg PO QPM
aspirin 81 mg Tablet,Delayed Release (Dr/Ec)
81 mg PO DAILY
furosemide 20 mg Tablet
60 mg PO BID
metoprolol tartrate 25 mg tablet
25 mg PO BID
fluticasone propion-salmeterol 113 mcg-14 mcg/actuation Aero Powdr Breath Act W/Sensor
1 inh INHALATION BID
gabapentin 300 mg capsule
300 mg PO BID
Camzyos 5 mg Capsule
10 mg PO DAILY Qty: 30 0RF
cephalexin 500 mg capsule
500 mg PO Q6H 10 Days Qty: 40 0RF
Referrals:
UNKNOWN - PT DOES,NOT KNOW [Unknown Provider]
Activity Restrictions/Additional Instructions:
Make sure you are taking your lasix. I have sent a prescription for an antibiotic, Keflex, which you should take 4 times a day for one week. Apply warm compresses to your the area of firmness on your right leg.
Interventions
Interventions:
*Risk Screen - Suicide Last Done: 04/02/25 10:03
*General Assessment Last Done: 04/02/25 10:21
*Neglect/Abuse Screening Last Done: 04/02/25 10:03
*ED- Fall Risk Assessment Last Done: 04/02/25 10:21
*ED COVID-19 Vaccine History Last Done: 04/02/25 10:21
*ED Influenza Vaccine History Last Done: 04/02/25 10:21
*Nursing Disposition Last Done: 04/02/25 13:44
ED- Cardiac Assessment Last Done: 04/02/25 10:21
ED- Pulmonary Assessment Last Done: 04/02/25 10:21
Discharge Date and Time
Discharge Date/Time: 04/02/25 13:44
Print Language: LAO
[2025-04-02] MEDS: DUONEB 3 ML INH (10:44)
[2025-04-02 10:52] LABS: Hematocrit 48.7 % (37.0-47.0); Hemoglobin 14.2 g/dL (12.0-16.0); Mean Corp Hgb Conc. 29.2 g/dL (33.0-37.0); Mean Corpuscular Volume 90.0 fL (81.0-99.0); Nucleated Red Blood Cells % 0 %; Platelet Count 140 10^3/uL (130-400); Red Cell Dist. Width 19.7 % (11.5-14.5)
[2025-04-02 11:00] VITALS: BP 156/62
[2025-04-02 11:02] LABS: INR 2.44; PT 26.5 Sec (11.4-14.6)
[2025-04-02 11:11] LABS: Blood Urea Nitrogen 25 mg/dl (7-17); Calcium 8.5 mg/dl (8.4-10.2); Carbon Dioxide 26 mmol/L (22-30); Chloride 105 mmol/L (98-107); Estimated Creatinine Clearance 52 ml/min; Glucose 104 mg/dl (70-99); Potassium 3.4 mmol/L (3.5-5.1); Sodium 138 mmol/L (135-145); eGFR > 60.00
[2025-04-02 11:13] LABS: COVID-19 Antigen Negative (Negative)
[2025-04-02 11:17] LABS: Troponin I 0.024 ng/ml
[2025-04-02] MEDS: ANCEF 10 IV (13:32)
== END 2025-04-02 13:44 | disposition home or self-care (01) ==
LOC: EMR 10:00
PROVIDERS: EMERGENCY PHYSICIAN Emergency Medicine; FAMILY PHYSICIAN Family Medicine
DX: L03.115 Cellulitis of right lower limb (principal); I80.01 Phlebitis and thrombophlebitis of superficial vessels of right lower extremity; J44.9 Chronic obstructive pulmonary disease, unspecified; I11.0 Hypertensive heart disease with heart failure; I50.9 Heart failure, unspecified; I48.91 Unspecified atrial fibrillation; K21.9 Gastro-esophageal reflux disease without esophagitis; Z79.01 Long term (current) use of anticoagulants; Z79.82 Long term (current) use of aspirin
CPT/HCPCS: 99284; 96374; 94640; 71046; 80048; 83880; 84484; 85025; 85610; 87502; 87811; 93005; 93971

== ENCOUNTER 2025-04-21 15:55 | Inpatient (IN) | payer MEDICARE, SELFPAY ==
[2025-04-21 09:22] VITALS: BP 132/79
[2025-04-21 11:31] VITALS: BP 158/70
--- NOTE | 2025-04-21 11:42 | ED.GENMED ---
History of Present Illness
General
Chief Complaint: Skin Problem
Source: patient
Exam Limitations: none
Time Seen by Provider: 04/21/25 11:26
History of Present Illness
History of Present Illness:
Patient being treated with multiple courses of antibiotics for presumed cellulitis of the right lower extremity. Started with tightness and redness of the lower extremity. Now noticing areas of tenderness and erythema to the proximal medial thigh.
Has been off antibiotics for 3 days. On Coumadin.
Past History
Past History
ED Past Medical History: Arrthythmia (Atrial fibrillation), CHF, COPD, GERD, HTN, Valvular disease (Endocarditis) and Other
ED Past Surgical History: Appendectomy, Cardiac and Other
Social History
Tobacco: Non-smoker
Alcohol: None
Drug: None
Phy Exam
Physical Exam
Physical Exam:
GENERAL: Alert and oriented in no apparent distress
EYE: Orbits normal.
NECK: Supple
CARDIAC: Regular rate and rhythm without any obvious murmurs.
LUNGS: Clear breath sounds,normal
ABDOMEN: Soft, without focal tenderness or distention
NEUROLOGICAL: Alert and oriented , grossly non-focal
SKIN: Warm and dry, erythema to the right lower extremity with induration to the right medial thigh and discrete areas of what appears to be early abscess formation in multiple areas of the proximal thigh. Some general erythema extends down to the
calf and foot.
MUSCULOSKELETAL: Diffuse tightness of the right lower extremity. However great distal pulses. No pain with passive or active flexion or extension of the foot. Motor or sensory neurovascular intact.
PSYCH: Normal and appropriate interaction.
Course
Orders/Labs/Results
Orders:
Orders
04/21/25 11:40
IV Insert/Care/Rem.- Treatment PRN
US Periph Venous LOWER Ext RT Urgent
Comment:
Reason For Exam: Evaluate for DVT. Also check for abscess
04/21/25 12:23
Basic Metabolic Panel Urgent
Complete Blood Count/With Diff Urgent
PT/INR [Prothrombin Time] Urgent
PTT Urgent
Blood Culture Q30M
LACI Source: Blood/Venous
Specimen Description:
04/21/25 12:29
Blood Culture Q30M
LACI Source: Blood/Venous
Specimen Description:
04/21/25 13:17
Vancomycin [Vancocin] 1,500 mg 0.9% Sodium Chloride 500 ml [Nss] 500 ml IV NOW
Abnormal Lab Results
04/21/25
12:23
RBC 5.52 H 10^6/uL
(4.20-5.40)
Hct 50.7 H %
(37.0-47.0)
MCHC 30.0 L g/dL
(33.0-37.0)
RDW 20.1 H %
(11.5-14.5)
Plt Count 124 L 10^3/uL
(130-400)
Abs Immat Gran (auto) 0.1 H 10^3/uL
(0-0.05)
Absolute Lymphs (auto) 0.6 L 10^3/uL
(1.2-3.4)
Absolute Monos (auto) 0.9 H 10^3/uL
(0.1-0.6)
Immature Gran % 0.6 H %
(0-0.5)
Neutrophils % 79.3 H %
(42.2-75.2)
Lymphocytes % 7.4 L %
(20.5-51.1)
Monocytes % 11.8 H %
(1.7-9.3)
PT 29.1 H Sec
(11.4-14.6)
APTT 41.3 H Sec
(23.4-35.0)
BUN 33 H mg/dl
(7-17)
04/21/25 12:23
04/21/25 12:23
Vital Signs
Initial and Last Documented VS:
Initial Vital Signs
Temp Pulse Resp BP Pulse Ox
98.7 F 74 16 132/79 98
04/21/25 09:22 04/21/25 09:22 04/21/25 09:22 04/21/25 09:22 04/21/25 09:22
Last Documented Vital Signs
Temp Pulse Resp BP Pulse Ox
98.7 F 74 16 158/70 88
04/21/25 09:22 04/21/25 09:22 04/21/25 09:22 04/21/25 11:31 04/21/25 11:45
MDM/Problems Addressed
Differential Diagnosis Includes:
Refractory cellulitis of the right lower extremity. Has been on multiple antibiotics. Clinically not septic. Possible secondary infected thrombophlebitis. Will repeat ultrasound to check for abscess and to check for DVT. Patient is on Coumadin.
Unlikely to be a DVT. Highly doubt compartment syndrome. The lower extremity is tight however there is no pain she has great distal pulses she has no numbness tingling or weakness. Low suspicion for compartment syndrome. Will start vancomycin
with plan for admission
*Radiology
Radiology exam reviewed: radiology read reviewed (Sawant's cyst. No DVT. No abscess.)
*Pulse Oximetry
SaO2: 98
Oxygen Mode of Delivery: Room air
Patient hypoxic: no
*Critical Care Note
Total Time (30-74mins, 75-104mins- exclusive of procedures): Not Applicable
ED Attending Note
-
Portions of this chart may have been created with voice recognition software.� Occasional wrong word or��sound alike� substitutions may have occurred due to the inherent limitations of voice recognition software.
Discharge Plan
Departure
Patient Disposition: Admit
Date of Disposition: 04/21/25
Time of Disposition: 14:02
Presentation/result/management discussed w/ accepting MD/DO: Hospitalist
Discharge Problem:
Refractory cellulitis right lower extrem
Prescriptions:
No Action
atorvastatin [Lipitor] 20 mg Tablet
20 mg PO DAILY
acetaminophen [Tylenol] 325 mg Tablet
650 mg PO Q4HPRN PRN (Reason: MILD PAIN)
ascorbic acid (vitamin C) [Vitamin C] 500 mg Tablet
1,000 mg PO QPM
warfarin [Jantoven] 2 mg tablet
2.5 mg PO QPM
aspirin 81 mg Tablet,Delayed Release (Dr/Ec)
81 mg PO DAILY
furosemide 20 mg Tablet
60 mg PO BID
metoprolol tartrate 25 mg tablet
75 mg PO BID
fluticasone propion-salmeterol 113 mcg-14 mcg/actuation Aero Powdr Breath Act W/Sensor
1 inh INHALATION R BID
gabapentin 300 mg capsule
300 mg PO BID
Camzyos 5 mg Capsule
10 mg PO DAILY Qty: 30 0RF
albuterol sulfate 90 mcg/actuation Hfa Aerosol Inhaler
2 puff INHALATION R Q6HPRN PRN (Reason: SHORTNESS OF BREATH)
Referrals:
Antonieta Clark MD [Family Provider, Family Practice]
Interventions
Interventions:
*Risk Screen - Suicide Last Done: 04/21/25 09:22
*General Assessment Last Done: 04/21/25 09:22
*Neglect/Abuse Screening Last Done: 04/21/25 09:22
*ED COVID-19 Vaccine History Last Done: 04/21/25 09:22
*ED Influenza Vaccine History Last Done: 04/21/25 09:22
[facility] Fall Risk Assessment Tool Last Done: 04/21/25 13:36
Discharge Date and Time
Print Language: LAO
[2025-04-21 12:14] VITALS: BMI 29.2
[2025-04-21 12:38] LABS: Hematocrit 50.7 % (37.0-47.0); Hemoglobin 15.2 g/dL (12.0-16.0); Mean Corp Hgb Conc. 30.0 g/dL (33.0-37.0); Mean Corpuscular Volume 91.8 fL (81.0-99.0); Nucleated Red Blood Cells % 0 %; Platelet Count 124 10^3/uL (130-400); Red Cell Dist. Width 20.1 % (11.5-14.5)
[2025-04-21 13:05] LABS: APTT 41.3 Sec (23.4-35.0); INR 2.81; PT 29.1 Sec (11.4-14.6)
[2025-04-21 13:13] LABS: Blood Urea Nitrogen 33 mg/dl (7-17); Calcium 8.4 mg/dl (8.4-10.2); Carbon Dioxide 26 mmol/L (22-30); Chloride 106 mmol/L (98-107); Estimated Creatinine Clearance 52 ml/min; Glucose 96 mg/dl (70-99); Potassium 3.7 mmol/L (3.5-5.1); Sodium 141 mmol/L (135-145); eGFR > 60.00
[2025-04-21] MEDS: VANCOCIN 530 MG IV (13:53)
--- NOTE | 2025-04-21 15:17 | HPS.HSE ---
Family Physician
-
Family Physician: Antonieta Clark MD
Chief Complaint
-
recurrent cellulitis
History of Present Illness
79 y/o F, hx of A. Fib, CHF, COPD, GERD, HTN presents to ER with RLE redness and tightness. She reports symptoms began 1 week ago, she noticed initially swelling that would occur during the day then resolve by evening. She later noticed redness.
Over the week, the swelling was persist all day and the redness worsening. Later her leg felt 'tight' due to the edema. Denies any fever/chills. No trauma. Reports 2-3 prior episodes in last 12 months. Reportedly finished antibiotics 3 days prior to
this occurrence, cannot recall antibiotic but states it was QID and began with letter 'A'.
In ER, patient reported chills, was started on Vanco and admitted.
Medical History
Past Medical History
Past Medical History: Reports Other (A. Fib, CHF, COPD, GERD, HTN)
Past Surgical History: Reports Appendectomy and Cardiac
Social History
Tobacco: Non-smoker
Alcohol: None
Drug: None
Living: Alone
Family History
Family History: Not pertinent
Allergies / Home Medications
Allergies reflects when Allergies were last updated in [employer].
Home Medications with original date entered in [employer]
Allergy/Medication List:
Allergies
Allergy/AdvReac Type Severity Reaction Status Date / Time
No Known Allergies Allergy Verified 04/21/25 09:25
Home Medications
atorvastatin 20 mg tablet (Lipitor) 20 mg PO DAILY High Cholesterol 06/21/23
acetaminophen 325 mg tablet (Tylenol) 650 mg PO Q4HPRN PRN MILD PAIN 08/23/24
ascorbic acid (vitamin C) 500 mg tablet (Vitamin C) 1,000 mg PO QPM Supplement 08/23/24
warfarin 2 mg tablet (Jantoven) 2.5 mg PO QPM Blood Clot Prevention/Tx 10/03/24
aspirin 81 mg tablet,delayed release 81 mg PO DAILY Heart Disease/Condition 01/20/25
furosemide 20 mg tablet 60 mg PO BID Fluid Retention/Swelling 01/20/25
metoprolol tartrate 25 mg tablet 75 mg PO BID Heart Disease/Condition 01/20/25
gabapentin 300 mg capsule 300 mg PO BID moderate pains 02/22/25
mavacamten 5 mg capsule (Camzyos) 10 mg (2 x 5 mg) PO DAILY Heart disease/condition #30 caps 02/24/25
fluticasone 113mcg-salmeterol 14mcg/actuation breath act,powder sensor 1 inh inhalation R BID 03/16/25
albuterol sulfate 90 mcg/actuation aerosol inhaler 2 puff inhalation R Q6HPRN PRN SHORTNESS OF BREATH 04/21/25
Review of Systems
-
A 12 point ROS was completed and negative except as noted: Yes
Physical Exam
Vital Signs
Vital Signs
Temp Pulse Resp BP Pulse Ox
98.7 F 74 16 158/70 88
04/21/25 09:22 04/21/25 09:22 04/21/25 09:22 04/21/25 11:31 04/21/25 11:45
Physical Exam
General: No Apparent Distress
HEENT: NormoCephalic and Anicteric
Respiratory: Clear; No Wheezes
Cardiac: S1/S2 and Regular Rhythm
GI: Soft and Non Tender
Musculoskeletal: Edema, Right Lower Extremity (RLE - cellulitis towards inner groin. few painful nodules medial thigh, without drainage. )
Neuro: AO x 3
Laboratory Results
-
04/21/25 12:23
04/21/25 12:23
Laboratory Results
PT 29.1 Sec (11.4-14.6) H 04/21/25 12:23
INR 2.81 04/21/25 12:23
APTT 41.3 Sec (23.4-35.0) H 04/21/25 12:23
Data Reviewed
-
Lab Data: Labs Reviewed by me
Impression/Plan
-
Assessment:
RLE cellulitis, recurrent
- s/p multiple antibiotic courses
- ER nurse to demarcate area of cellulitis
- Vanco/Ancef, day 1. check MRSA swab. follow cultures. Consult ID for recommendations.
- elevate RLE
parox A. Fib
chronic HFpEF
cardiomyopathy (HCM)
- continue Camzyos
- continue ASA/Statin
- continue Lasix BID
- continue BB
- continue Coumadin; f/u INRs
COPD
- continue Fluticasone/Salmeterol
- prn Nebs
GERD
Essential HTN
- continue BB
DVT ppx: Coumadin
Code: Full
[2025-04-21 15:31] VITALS: BP 145/73
[2025-04-21 17:48] VITALS: BP 159/79; BMI 29.2
[2025-04-21] MEDS: ANCEF 10 IV (18:31)
[2025-04-21] MEDS: VITAMIN C 1000 MG PO (18:33)
[2025-04-21] MEDS: LASIX 60 MG PO (18:33)
[2025-04-21] MEDS: COUMADIN 2.5 MG PO (18:33)
--- NOTE | 2025-04-21 19:28 | PTCARENOTE ---
pt from ED via stretcher. pt able to ambulate to the room. pt is AAO*3, Vss, room air. pt with open wound on back of the knee w/ yellowish green drainage, silicone foam applied. skin warm to touch. c/o pain. pt is orieted to the room. call burris
within the reach. plan of care ongoing.
[2025-04-21 19:30] VITALS: BP 157/76
[2025-04-21] MEDS: ADVAIR HFA 115/21 MCG INHALER 2 PUFF INH (20:01)
[2025-04-21] MEDS: LOPRESSOR 75 MG PO (20:26)
[2025-04-21] MEDS: ROXICODONE 5 MG PO (20:27)
[2025-04-21] MEDS: NEURONTIN 300 MG PO (20:27)
--- NOTE | 2025-04-21 20:30 | PHA.VAN.IN ---
Assessment
- Assessment
Renal Function: Appears similar to baseline
Concomitant Antimicrobials: CEFAZOLIN
AUC Dosing Plan
- Empiric Dosing
Initial / Loading Dose: VANCOMYCIN 1500 MG IV ~ 1400
Maintenance Regimen: VANCOMYCIN 1250 MG IV Q24H
Estimated AUC (mcg*h/mL): 555.5
Estimated Peak (mcg*h/mL): 37.5
Estimated Trough (mcg/ml): 12.9
Estimated Half Life (H): 14.6
- Monitoring
No levels ordered at this time: Please consider levels in next few days.
Pharmacokinetics Vancomycin I
- -
Patient Age: 79
Patient Sex: Female
Vancomycin Day #: 1
Indication: Skin And Soft Tissue
Requesting Provider: Dr Joanna Pereira
Height / Weight:
Height 5 ft 1 in
Actual Weight 70.052 kg
Pertinent Past Medical History: Pt. presented w. recurrent cellulitis of the right lower extremity.
- Vital Signs / Lab Results
Temp Pulse Resp BP Pulse Ox
98.7 F 78 16 157/76 93
04/21/25 19:30 04/21/25 20:04 04/21/25 20:04 04/21/25 19:30 04/21/25 20:04
Lab Results - Hematology
04/21/25
12:23
WBC 7.9
Lab Results - Chemistry
04/21/25
12:23
BUN 33 H
Creatinine 0.8
Estimated Creat Clear 52
[2025-04-21 23:32] VITALS: BP 133/58
[2025-04-22] VITALS (9 sets, daily range): BP systolic 95–154; BP diastolic 38–79; PULSE 57–63; O2SAT 94; BMI 29.2
[2025-04-22] MEDS: ROXICODONE 5 MG PO ×4 (01:06→20:05)
[2025-04-22] MEDS: ANCEF 10 IV ×3 (01:09→17:07)
[2025-04-22] MEDS: VANCOCIN 275 MG IV (06:13)
[2025-04-22] MEDS: ADVAIR HFA 115/21 MCG INHALER 2 PUFF INH ×2 (07:46→20:13)
[2025-04-22] MEDS: LIPITOR 20 MG PO (08:51)
[2025-04-22] MEDS: NEURONTIN 300 MG PO ×2 (08:51→20:05)
[2025-04-22] MEDS: LASIX 60 MG PO ×2 (08:51→15:23)
[2025-04-22] MEDS: ASPIR LOW (ENTERIC COATED) 81 MG PO (08:51)
[2025-04-22] MEDS: LOPRESSOR 75 MG PO (08:51)
[2025-04-22 09:49] LABS: Hematocrit 48.2 % (37.0-47.0); Hemoglobin 14.2 g/dL (12.0-16.0); Mean Corp Hgb Conc. 29.5 g/dL (33.0-37.0); Mean Corpuscular Volume 92.5 fL (81.0-99.0); Platelet Count 102 10^3/uL (130-400); Red Cell Dist. Width 20.0 % (11.5-14.5)
[2025-04-22 09:57] LABS: INR 2.31; PT 25.6 Sec (11.4-14.6)
[2025-04-22 10:09] LABS: Blood Urea Nitrogen 22 mg/dl (7-17); Calcium 7.9 mg/dl (8.4-10.2); Carbon Dioxide 27 mmol/L (22-30); Chloride 101 mmol/L (98-107); Estimated Creatinine Clearance 52 ml/min; Glucose 291 mg/dl (70-99); Potassium 3.7 mmol/L (3.5-5.1); Sodium 135 mmol/L (135-145); eGFR > 60.00
--- NOTE | 2025-04-22 10:36 | WOUNDNOTE ---
RIGHT MEDIAL THIGH
--- NOTE | 2025-04-22 10:37 | WOUNDNOTE ---
RIGHT POSTERIOR THIGH
--- NOTE | 2025-04-22 10:37 | PHA.VAN.FU ---
Vancomycin Assessment / Plan
- Assessment
Renal Function: Stable
WBC's are: WNL
Concomitant Antimicrobials: cefazolin
- Dosing Plan
Continue: Vanc 1250mg Q24H
- Monitoring Plan
No level(s) ordered at this time: consider levels in next few days
- Follow Up
Pharmacy will continue to follow.
Vancomycin Follow UP
- -
Patient Age: 79
Patient Sex: Female
Vancomycin Day #: 2
Indication: Skin And Soft Tissue
Requesting Provider: Dr Joanna Pereira
Pertinent Antimicrobial Allergies:
NKDA
Height / Weight:
Height 5 ft 1 in
Actual Weight 70.052 kg
Pertinent Past Medical History: BMI 29
- Vital Signs / Lab Results
Temp Pulse Resp BP Pulse Ox
97.8 F 68 18 101/39 92
04/22/25 09:05 04/22/25 09:05 04/22/25 09:05 04/22/25 09:05 04/22/25 09:05
Lab Results - Hematology
04/21/25 04/22/25
12:23 08:48
WBC 7.9 7.8
Lab Results - Chemistry
04/21/25 04/22/25
12:23 08:48
BUN 33 H 22 H
Creatinine 0.8 0.8
Estimated Creat Clear 52 52
--- NOTE | 2025-04-22 10:38 | WOUNDNOTE ---
RIGHT POSTERIOR THIGH
--- NOTE | 2025-04-22 10:59 | WOUNDNOTE ---
[facility] RN note: Patient admitted with right leg cellulitis
See H&P for complete history.
PMH: A. Fib, CHF, COPD, GERD, HTN
Wound Location and type/assessment: Patient admitted with right leg recurrent cellulitis. The thigh appears with dark lesions under the skin that have re-occurred. The right posterior thigh has a small, draining ulceration with slough. Awaiting ID
consult. Sacrum and heels intact.
Appetite: Good
Pressure redistribution devices in place: Versa Care Accumax. Patient turns easily in bed.
Plan: Will recommend cleaning with Vashe and applying alginate daily while wound is draining. SHAD Lynch given update.
Will confirm orders with hospitalist and update nurse.
Updated care plan and will follow as needed.
Note to case management of equipment requested for discharge:
Recommend follow up at wound care center upon discharge.
--- NOTE | 2025-04-22 13:52 | W.PN.HOSP.TC ---
Today's Communication/Plan
-
await MRSA swab, RLE culture
continue antibiotics; follow ID recs
Assessment / Plan
Assessment / Plan
Assessment:
RLE cellulitis, recurrent
- s/p multiple antibiotic courses
- cellulitis area demarcate in ER
- Vanco/Ancef, day 2. check MRSA swab. follow cultures. Consult ID
- RLE culture from groin lesions pending
- elevate RLE as much as possible, reviewed with patient
parox A. Fib
chronic HFpEF
cardiomyopathy (HCM)
- continue Camzyos
- continue ASA/Statin
- continue Lasix BID
- continue BB
- continue Coumadin; f/u INRs
COPD
- continue Fluticasone/Salmeterol
- prn Nebs
GERD
Essential HTN
- continue BB
DVT ppx: Coumadin
Code: Full
Anticipated Discharge: > 48 hours
Subjective/Interval History
-
Date of Service: April 22, 2025
reports distal RLE improvement in swelling and redness
Objective Data
-
Labs:
Laboratory Results
04/22/25
08:48
WBC 7.8
Hgb 14.2
Hct 48.2 H
Plt Count 102 L
PT 25.6 H
INR 2.31
Sodium 135
Potassium 3.7
Chloride 101
Carbon Dioxide 27
BUN 22 H
Creatinine 0.8
Glucose 291 H
Calcium 7.9 L
Vital Signs:
Vital Signs
Temp Pulse Resp BP Pulse Ox
98.9 F 58 18 140/53 96
04/22/25 11:37 04/22/25 11:37 04/22/25 11:37 04/22/25 11:37 04/22/25 13:26
Physical Exam
-
General: No Apparent Distress
HEENT: Normocephalic and Atraumatic
Respiratory: Negative Wheezes
Cardiac: Regular Rhythm and S1/S2
GI: Soft
Genito-urinary: No Costovertebral Tender
Skin: Other (RLE - cellulitis towards inner groin. few painful nodules medial thigh, scant drainage. distal improvement in erythema, less edema.)
Neuro: AO x 3
Psych: Calm
Data Reviewed
-
Total Time Spent with Patient (in minutes): 42
Labs: Labs Reviewed by me
--- NOTE | 2025-04-22 14:12 | CON.ID ---
Addendum entered and electronically signed by Izzy Bar MD 04/22/25 15:08:
I personally performed a history and physical exam of the patient and discussed management with the resident. I reviewed the resident's note and agree with most of the documented findings and plan of care HPI/CC.
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
and erythema. Patient was hospitalized in February 2025 with right lower extremity nonpurulent cellulitis from medial leg to medial upper thigh treated with IV cefazolin then charged on cephalexin. Cellulitis resolved. She presented ER 04/02 for
right lower extremity erythema and edema. Peripheral venous ultrasound showed right Bakers cyst with superficial thrombophlebitis. She was discharged on cephalexin with improvement. However few days after she finished the cephalexin, her right
leg became edematous again then turned red from medial calf to medial thigh. She noticed several lumps on her medial thigh and posterior previously close. However recently she has noticed that these lesions had been draining yellow-green fluid
then closed up again. Tmax 100.4. Repeat peripheral ultrasound, no DVT, Sawant's cyst resolved. Recently on vancomycin and cefazolin. She is insisting on getting biopsy.
Exam:
RLE medial thigh - 3 to 4 papules - slightly firm, unable to express fluid surrounded with erythema
Right distal posterior thigh 1 cm open wound with yellow exudate.
Overall RLE erythema receding from marked line.
A/P:
# Relapse vs recurrent RLE cellulitis, 3rd episode in 3 months.
# Right thigh abscesses
- Apply warm compress to abscesses to expedite spontaneous drainage. When lesion drains, send for cx.
- I swabbed posterior thigh wound for cx.
- Can continue Vancomycin and cefazolin for now pending cx data.
- May need extended course of abx.
- Pt insisted on skin biopsy. I informed her there is no need for biopsy at this time. Will follow cx and clinically.
Pt still requesting biopsy. I informed her Dermatology does not physically come to hospital. She will have to see Derm outpatient. Pt was not happy with the information.
Original Note:
Consultation
-
Date/Time Consultation Requested: 04/21/25
Date/Time Consultation Performed: 04/22/25
Requesting Provider: Dr. Joanna Roman
Performing Provider: Dr. Izzy Bar
Reason for Consultation: Recurrent RLE cellulitis
Chief Complaint / Past History
Chief Complaint
Right lower extremity erythema/ swelling
History of Present Illness
79-year-old female who presents to the emergency department on 04/21/2025 with right lower extremity swelling, redness, tightness. She began to notice the symptoms since 7 days and states that the onset was abrupt with the erythema starting on the
medial malleolus of her right ankle ankle and extending up the medial side of her leg until it reached her inner groin area. Also associated with a draining wound on the back of her leg. She has had 3 similar clinical episodes in the past 1 year
and and she states that every single episode has resolved with antibiotics only to resurface shortly thereafter. on her previous admission to the ER on 04/02/2025 she presented with the same symptoms and was discharged with cephalexin 500 mg for 7
days. She took the full course of antibiotics. On arrival to the ED she denied any fever, chills, trauma, nausea, vomiting, diarrhea, headache, altered mental status. Labs in the ED showed WBC of 7.9, hemoglobin of 15.2, platelet count of 12 which
is slightly reduced, and elevated glucose of 291 on CMP.
Past History
Additional Past Medical History:
Atrial fibrillation, congestive heart failure, COPD, hypertension, previous episodes of cellulitis
Additional Past Surgical History:
Mitral valve repair, appendectomy
Allergy History:
No Known Allergies Allergy (Verified 04/21/25 09:25)
Medications Reviewed: Yes
Current Antibiotics:
Cefazolin and vancomycin
Social History
Tobacco: Non-Smoker
Alcohol: None
Drug: None
Personal: Single
Living: Alone
Employment: Employed
Family History
Family History: Not Pertinent
Review of Systems
Review of Systems
General: Negative Fever or Chills
Cardiovascular: Negative Chest Pain, Dyspnea or Edema
Respiratory: Negative Dyspnea or Cough
Gasteroenterology: Negative Weight Loss
Hematologic: Negative Bleeding Problems
Musculoskeletal: Negative Joint Pain
Skin / Hair / Nails: Rash (right lower extremity)
Neurological: Negative Headache or Dizziness
Vital Signs
Temp Pulse Resp BP Pulse Ox
98.9 F 58 18 140/53 96
04/22/25 11:37 04/22/25 11:37 04/22/25 11:37 04/22/25 11:37 04/22/25 13:26
Physical Exam
Physical Exam
Constitutional: No Acute Distress
Cardiovascular: Regular Rate and S1/S2
Pulmonary: Clear and Symmetric
Gastrointestinal: Soft, Non Tender, Non Distended and Normal Bowel Sounds
Extremities: Other (mildly tender, blanching, erythematous rash extending up from the medial side of her ankle up to her inner groin. Associated with 3 abscesses on the medial aspect of her thigh and a draining wound on the back of her thigh. )
Skin: Warm
Neurological: AO x 3
Lab / Diagnostic Study Results
04/22/25 08:48
04/22/25 08:48
Abs Immat Gran (auto) 0.1 10^3/uL (0-0.05) H 04/21/25 12:23
Absolute Neuts (auto) 6.3 10^3/uL (1.4-6.5) 04/21/25 12:23
Absolute Lymphs (auto) 0.6 10^3/uL (1.2-3.4) L 04/21/25 12:23
Absolute Monos (auto) 0.9 10^3/uL (0.1-0.6) H 04/21/25 12:23
Absolute Basos (auto) 0.0 10^3/uL (0-0.2) 04/21/25 12:23
Immature Gran % 0.6 % (0-0.5) H 04/21/25 12:23
Neutrophils % 79.3 % (42.2-75.2) H 04/21/25 12:23
Lymphocytes % 7.4 % (20.5-51.1) L 04/21/25 12:23
Monocytes % 11.8 % (1.7-9.3) H 04/21/25 12:
Eosinophils % 0.6 % (0-6) 04/21/25 12:
Basophils % 0.3 % (0-2) 04/21/25 12:
PT 25.6 Sec (11.4-14.6) H 04/22/25 08:48
INR 2.31 04/22/25 08:48
Microbiology Results
Micro:
04/21/25 12:29 Blood Culture - Preliminary
Blood/Venous No Growth in 24 hours- Final report to follow
04/21/25 12:23 Blood Culture - Preliminary
Blood/Venous No Growth in 24 hours- Final report to follow
04/22/25 11:40 Wound Culture - Pending
Leg - Right Gram Stain - Preliminary
peripheral vascular ultrasound on 04/21/25:
IMPRESSION:
No evidence of right lower extremity deep venous thrombosis.
Assessment / Plan
Right lower extremity erythema and tenderness:
- DD is purulent cellulitis, venous stasis dermatitis, lymphedema, and lipodermatosclerosis
- Blood cultures negative
- Peripheral vascular u/s negative for a DVT
- Continue on Cefazolin and vancomycin
- Wound culture ordered for drainage, pending. MRSA screen also ordered.
- Ordered warm compresses to help her abbesses drain on medial aspect of thigh
- Trend temperature and CBC
--- NOTE | 2025-04-22 15:29 | CM ---
Initial assessment completed. Patient is a 79 y/o F, hx of A. Fib, CHF, COPD, GERD, HTN presents to ER with RLE redness and tightness.
Patient resides alone in a 2nd floor apartment, 12 steps to apartment. No elevator. Patient is independent w/ ambulation, no device required. Independent w/ ADLs and personal care. Drives (+). No DME. No SNF hx. Prev known to [facility] following last
admission.
Address, point of contact and insurance verified
PCP: Antonieta Clark
Pharmacy: [facility]
ID consulted- IV abx currently, will watch for potential nursing home IV abx
Plan: CM will cont to follow for d/c planning
[2025-04-22] MEDS: VITAMIN C 1000 MG PO (17:08)
[2025-04-22] MEDS: COUMADIN 2.5 MG PO (17:08)
[2025-04-22] MEDS: LOPRESSOR PO (20:09)
[2025-04-23] MEDS: ANCEF 10 IV ×3 (02:42→16:39)
[2025-04-23] MEDS: ROXICODONE 5 MG PO ×3 (02:47→20:27)
[2025-04-23 03:52] VITALS: BP 136/53
[2025-04-23] MEDS: VANCOCIN 275 MG IV (05:59)
[2025-04-23 06:00] VITALS: BMI 29.5
[2025-04-23 07:43] VITALS: BP 109/46
[2025-04-23] MEDS: ADVAIR HFA 115/21 MCG INHALER 2 PUFF INH ×2 (08:30→19:52)
[2025-04-23] MEDS: LOPRESSOR PO (08:42)
[2025-04-23] MEDS: LASIX 60 MG PO ×2 (08:42→16:37)
[2025-04-23] MEDS: NEURONTIN 300 MG PO ×2 (08:42→20:28)
[2025-04-23] MEDS: ASPIR LOW (ENTERIC COATED) 81 MG PO (08:43)
[2025-04-23] MEDS: LIPITOR 20 MG PO (08:43)
[2025-04-23] MEDS: LOPRESSOR 25 MG PO ×2 (09:33→20:28)
[2025-04-23 09:42] LABS: Hematocrit 49.6 % (37.0-47.0); Hemoglobin 14.5 g/dL (12.0-16.0); Mean Corp Hgb Conc. 29.2 g/dL (33.0-37.0); Mean Corpuscular Volume 94.5 fL (81.0-99.0); Platelet Count 102 10^3/uL (130-400); Red Cell Dist. Width 20.2 % (11.5-14.5)
[2025-04-23 09:51] LABS: INR 2.82; PT 29.9 Sec (11.4-14.6)
[2025-04-23 10:20] LABS: Blood Urea Nitrogen 19 mg/dl (7-17); Calcium 8.0 mg/dl (8.4-10.2); Carbon Dioxide 31 mmol/L (22-30); Chloride 98 mmol/L (98-107); Estimated Creatinine Clearance 52 ml/min; Glucose 222 mg/dl (70-99); Potassium 3.9 mmol/L (3.5-5.1); Sodium 136 mmol/L (135-145); eGFR > 60.00
--- NOTE | 2025-04-23 11:29 | PHA.VAN.FU ---
Vancomycin Assessment / Plan
- Assessment
Renal Function: Stable
WBC's are: WNL
In the past 24 hrs, patient has been: Afebrile
Concomitant Antimicrobials: cefazolin
- Dosing Plan
Continue: Vanc 1250mg Q24H
- Monitoring Plan
No level(s) ordered at this time: consider levels in next few days
- Follow Up
Pharmacy will continue to follow.
Vancomycin Follow UP
- -
Patient Age: 79
Patient Sex: Female
Vancomycin Day #: 3
Indication: Skin And Soft Tissue
Requesting Provider: Dr Marshall / Yosvany
Pertinent Antimicrobial Allergies:
NKDA
Height / Weight:
Height 5 ft 1 in
Actual Weight 70.874 kg
Pertinent Past Medical History: BMI 29
- Vital Signs / Lab Results
Temp Pulse Resp BP Pulse Ox
98.3 F 68 16 109/46 94
04/23/25 07:43 04/23/25 08:42 04/23/25 08:32 04/23/25 08:42 04/23/25 08:32
Lab Results - Hematology
04/21/25/05/0504/23/25
12:23 08:48 08:35
WBC 7.9 7.8 8.2
Lab Results - Chemistry
04/21/25 04/22/25 04/23/25
12:23 08:48 08:35
BUN 33 H 22 H 19 H
Creatinine 0.8 0.8 0.8
Estimated Creat Clear 52 52 52
Microbiology Results
04/21/25 12:23 Blood Culture - Preliminary
Blood/Venous Positive culture in progress
Gram Stain - Preliminary
04/21/25 12:29 Blood Culture - Preliminary
Blood/Venous No Growth in 24 hours- Final report to follow
04/22/25 11:40 Gram Stain - Preliminary
Leg - Right
--- NOTE | 2025-04-23 11:41 | W.PN.ID1 ---
Date of Service
Date of Service: April 23, 2025
Today's Communication
Continue antibiotics.
Assessment / Plan
Right lower extremity erythema and tenderness
Positive blood culture (04/21/2025) with [facility]
- DDx includes purulent cellulitis, venous stasis dermatitis, lymphedema, and lipodermatosclerosis
- Blood cultures negative
- Peripheral vascular u/s negative for a DVT
- Continue on Cefazolin and vancomycin
- Wound culture ordered for drainage, pending. MRSA screen also ordered.
- Ordered warm compresses to help her abbesses drain on medial aspect of thigh
- Trend temperature and CBC
Chief Complaint
-: Cellulitis
Subjective / Review of Systems
Patient seen and examined. Reports ongoing right thigh discomfort.
Review of Systems: No Fever
Vital Signs / Physical Exam
Vital Signs
Vital Signs
Temp Pulse Resp BP Pulse Ox
98.3 F 68 16 109/46 94
04/23/25 07:43 04/23/25 08:42 04/23/25 08:32 04/23/25 08:42 04/23/25 08:32
Physical Exam
Constitutional: No Acute Distress
Cardiovascular: Regular Rate and S1/S2; Negative Murmur or Rub
Pulmonary: Clear and Symmetric; Negative Wheezes or Rales
Gastrointestinal: Soft, Non Tender, Non Distended and Normal Bowel Sounds
Skin: Warm, Dry and Rash (dependent quad remains quite red, swollen, tender; ankle also with some erythema and tenderness); Negative Jaundice
Objective Data
Lab Data
Lab Results
04/23/25 08:35
04/23/25 08:35
PT 29.9 Sec (11.4-14.6) H 04/23/25 08:35
INR 2.82 04/23/25 08:35
APTT 41.3 Sec (23.4-35.0) H 04/21/25 12:23
Estimated Creat Clear 52 ml/min 04/23/25 08:35
Most recent labs reviewed.
Micro Results:
04/21/25 12:23 Blood Culture - Preliminary
Blood/Venous Positive culture in progress
Gram Stain - Preliminary
04/22/25 14:30 MRSA Screen - Pending
Nose
04/21/25 12:29 Blood Culture - Preliminary
Blood/Venous No Growth in 24 hours- Final report to follow
04/22/25 11:40 Wound Culture - Pending
Leg - Right Gram Stain - Preliminary
peripheral vascular ultrasound on 04/21/25:
IMPRESSION:
No evidence of right lower extremity deep venous thrombosis.
--- NOTE | 2025-04-23 14:47 | W.PN.HOSP.TC ---
Today's Communication/Plan
-
Assessment / Plan
Assessment / Plan
General: No Apparent Distress, Comfortable and Conversant
HEENT: NormoCephalic, Moist mucous membranes, Atraumatic
Respiratory: Clear and Non Labored Respirations
Cardiac: S1/S2 and Regular Rhythm; No Rub or Gallop
GI: Soft, Non Tender, Non Distended and Normal Bowel Sounds
Musculoskeletal: No Edema, right groin with multiple abscesses and surrounding erythema
: NO Bellamy
Neuro: Awake, Alert, Nonfocal/grossly intact
Psych: Calm and cooperative
Assessment:
RLE cellulitis, recurrent
- s/p multiple antibiotic courses
- cellulitis area demarcate in ER
- Vanco/Ancef, day 3. MRSA swab negative. blood cxs growing GPCs
- RLE culture from groin lesions pending
- elevate RLE as much as possible, warm compresses
- ID following
parox A. Fib
chronic HFpEF
cardiomyopathy (HCM)
- continue Camzyos
- continue ASA/Statin
- continue Lasix BID
- continue BB
- continue Coumadin; f/u INRs
COPD
- continue Fluticasone/Salmeterol
- prn Nebs
GERD
Essential HTN
- continue BB
Hyperglycemia:
- not on diabetic meds at home
- will check A1c
DVT ppx: Coumadin
Code: Full
Anticipated Discharge: > 48 hours
Subjective/Interval History
-
Date of Service: April 23, 2025
Patient was seen and examined at bedside this morning. Significant pain from apparent abscesses in her right groin. Continuing broad-spectrum antibiotics. Blood cultures now positive for gram-positive cocci.
Objective Data
-
Labs:
Laboratory Results
04/23/25
08:35
WBC 8.2
Hgb 14.5
Hct 49.6 H
Plt Count 102 L
PT 29.9 H
INR 2.82
Sodium 136
Potassium 3.9
Chloride 98
Carbon Dioxide 31 H
BUN 19 H
Creatinine 0.8
Glucose 222 H
Calcium 8.0 L
Vital Signs:
Vital Signs
Temp Pulse Resp BP Pulse Ox
98.3 F 68 16 109/46 92
04/23/25 07:43 04/23/25 08:42 04/23/25 08:32 04/23/25 08:42 04/23/25 08:40
I&O
04/22/25 04/23/25 04/24/25
06:59 06:59 06:59
Intake Total 840 / 840
Output Total 1000 / 1000
Balance -160 / -160
Review of Systems
-
History Source: Patient
All other systems: Reviewed and negative
Skin: Reports Sores
Physical Exam
-
General: No Apparent Distress
[2025-04-23 15:30] VITALS: BP 116/54
[2025-04-23] MEDS: COUMADIN 2.5 MG PO (16:38)
[2025-04-23] MEDS: VITAMIN C 1000 MG PO (16:38)
[2025-04-23 19:25] VITALS: BP 101/56
[2025-04-23 23:59] VITALS: BP 105/56
[2025-04-24] VITALS (7 sets, daily range): BP systolic 96–153; BP diastolic 48–96; BMI 29.5
[2025-04-24] MEDS: SENOKOT-S 1 TABLET PO ×2 (03:14→19:38)
[2025-04-24] MEDS: ROXICODONE 5 MG PO ×3 (03:14→20:52)
[2025-04-24] MEDS: ANCEF 10 IV ×3 (03:14→16:58)
[2025-04-24] MEDS: VANCOCIN 275 MG IV (05:49)
[2025-04-24] MEDS: ADVAIR HFA 115/21 MCG INHALER 2 PUFF INH ×2 (07:17→20:03)
[2025-04-24] MEDS: NEURONTIN 300 MG PO ×2 (08:23→19:38)
[2025-04-24] MEDS: ASPIR LOW (ENTERIC COATED) 81 MG PO (08:25)
[2025-04-24] MEDS: LOPRESSOR 25 MG PO ×2 (08:25→19:39)
[2025-04-24] MEDS: LASIX 60 MG PO ×2 (08:25→16:49)
[2025-04-24] MEDS: LIPITOR 20 MG PO (08:25)
[2025-04-24 08:57] LABS: Hematocrit 51.3 % (37.0-47.0); Hemoglobin 14.7 g/dL (12.0-16.0); Mean Corp Hgb Conc. 28.7 g/dL (33.0-37.0); Mean Corpuscular Volume 93.4 fL (81.0-99.0); Nucleated Red Blood Cells % 0 %; Platelet Count 109 10^3/uL (130-400); Red Cell Dist. Width 20.5 % (11.5-14.5)
[2025-04-24 09:40] LABS: Anisocytosis 1+; Hypochromasia Slight; Normal RBC Morphology No; Ovalocytes Slight
--- NOTE | 2025-04-24 10:20 | PHA.VAN.FU ---
Vancomycin Assessment / Plan
- Assessment
Renal Function: No New Labs Today
WBC's are: WNL
In the past 24 hrs, patient has been: Afebrile
Concomitant Antimicrobials: cefazolin
- Dosing Plan
Continue: Vanc 1250mg Q24H
- Monitoring Plan
Peak Level: peak = 21 - will assess with trough in AM
Trough Level: 04/25 0530
Monitoring Comments: levels drawn after 3rd maintenance dose
- Follow Up
Pharmacy will continue to follow.
Vancomycin Follow UP
- -
Patient Age: 79
Patient Sex: Female
Vancomycin Day #: 4
Indication: Skin And Soft Tissue
Requesting Provider: Dr Marshall / Yosvany
Pertinent Antimicrobial Allergies:
NKDA
Height / Weight:
Height 5 ft 1 in
Actual Weight 70.817 kg
Pertinent Past Medical History: BMI 29
- Vital Signs / Lab Results
Temp Pulse Resp BP Pulse Ox
98.2 F 121 20 112/67 90
04/24/25 07:30 04/24/25 08:25 04/24/25 07:30 04/24/25 08:25 04/24/25 08:30
Lab Results - Hematology
04/21/25 04/22/25 04/23/25
12:23 08:48 08:35
WBC 7.9 7.8 8.2
04/24/25
07:39
WBC 8.4
Lab Results - Chemistry
04/21/25 04/22/25 04/23/25
12:23 08:48 08:35
BUN 33 H 22 H 19 H
Creatinine 0.8 0.8 0.8
Estimated Creat Clear 52 52 52
Microbiology Results
04/22/25 14:30 MRSA Screen - Final
Nose No Methicillin Resistant Staphylococcus aureus isolated.
04/21/25 12:29 Blood Culture - Preliminary
Blood/Venous No Growth in 48 hours- Final report to follow
04/22/25 11:40 Wound Culture - Preliminary
Leg - Right Gram Stain - Preliminary
04/21/25 12:23 Blood Culture - Preliminary
Blood/Venous Positive culture in progress
Gram Stain - Preliminary
Therapeutic Drug Monitoring
Vancomycin Peak 21.0 ug/ml (18-) 04/24/25 08:52
[2025-04-24 11:42] LABS: Glycohemoglobin (HgbA1c) 6.9 % (4.0-5.9)
--- NOTE | 2025-04-24 12:52 | W.PN.HOSP.TC ---
Today's Communication/Plan
-
Assessment / Plan
Assessment / Plan
General: No Apparent Distress, Comfortable and Conversant
HEENT: NormoCephalic, Moist mucous membranes, Atraumatic
Respiratory: Clear and Non Labored Respirations
Cardiac: S1/S2 and Regular Rhythm; No Rub or Gallop
GI: Soft, Non Tender, Non Distended and Normal Bowel Sounds
Musculoskeletal: No Edema, right groin with multiple abscesses and surrounding erythema improving
: NO Bellamy
Neuro: Awake, Alert, Nonfocal/grossly intact
Psych: Calm and cooperative
Assessment:
RLE cellulitis, recurrent
- s/p multiple antibiotic courses
- cellulitis area demarcate in ER which is improving today
- Vanco/Ancef, day 4. MRSA swab negative. blood cxs growing staph, sensitivities pending
- RLE culture from groin lesions pending
- CT imaging with contrast shows no evidence of abscess, does show multiple inflamed sebaceous cysts
- elevate RLE as much as possible, warm compresses
- ID following , guidance appreciated
- Starting diabetic medications for better blood glucose control which may be a factor with this recurrent infection
parox A. Fib
chronic HFpEF
cardiomyopathy (HCM)
- continue Camzyos
- continue ASA/Statin
- continue Lasix BID
- continue BB
- continue Coumadin; f/u INRs
COPD
- continue Fluticasone/Salmeterol
- prn Nebs
GERD
Essential HTN
- continue BB
Hyperglycemia:
- not on diabetic meds at home
- Hemoglobin A1c 6.9%
- Starting low-dose metformin 500 mg twice daily
- Sliding scale insulin as needed
DVT ppx: Coumadin
Code: Full
Anticipated Discharge: 24 - 48 hours
Subjective/Interval History
-
Date of Service: April 24, 2025
Patient was seen and examined at bedside this morning. Right lower extremity cellulitis appears to be improving. CT imaging showed no evidence of abscess.
Objective Data
-
Labs:
Laboratory Results
04/24/25
07:39
WBC 8.4
Hgb 14.7
Hct 51.3 H
Plt Count 109 L
Vital Signs:
Vital Signs
Temp Pulse Resp BP Pulse Ox
98.2 F 121 20 112/67 90
04/24/25 07:30 04/24/25 08:25 04/24/25 07:30 04/24/25 08:25 04/24/25 08:30
I&O
04/23/25 04/24/25 04/25/25
06:59 06:59 06:59
Intake Total 840 / 840 600 / 600
Output Total 1000 / 1000 600 / 600
Balance -160 / -160 0 / 0
Review of Systems
-
History Source: Patient
All other systems: Reviewed and negative
Skin: Reports Sores
Physical Exam
-
General: No Apparent Distress
--- NOTE | 2025-04-24 13:33 | PTCARENOTE ---
Dr. Johnson made aware pt. converted to Afib and HR in 120s this morning. Pt. HR now 76 while resting in bed. Will continue to monitor and report on pt.
[2025-04-24] MEDS: VITAMIN C 1000 MG PO (16:58)
[2025-04-24] MEDS: COUMADIN 2.5 MG PO (16:59)
[2025-04-24] MEDS: GLUCOPHAGE PO (17:03)
[2025-04-24] MEDS: NOVOLOG FLEXPEN-LOW RESISTANCE SC (17:03)
--- NOTE | 2025-04-24 17:10 | PTCARENOTE ---
This nurse updated and educated pt. on A1c level and new orders to get blood sugars and new diabetic medication and management. Pt. stating this is a 'shot in the dark and pointless'. Pt. refused to have blood sugar checked and take diabetic
medication until she speaks to the doctor. Dr. Johnson made aware and will speak to the pt. tomorrow. Pt. updated on plan.
[2025-04-25] MEDS: ANCEF 10 IV ×2 (02:38→10:01)
[2025-04-25 03:26] VITALS: BP 99/48
[2025-04-25] MEDS: MIRALAX 17 GRAMS PO (06:20)
[2025-04-25 06:34] LABS: Hematocrit 50.2 % (37.0-47.0); Hemoglobin 14.6 g/dL (12.0-16.0); Mean Corp Hgb Conc. 29.1 g/dL (33.0-37.0); Mean Corpuscular Volume 93.3 fL (81.0-99.0); Nucleated Red Blood Cells % 0 %; Platelet Count 110 10^3/uL (130-400); Red Cell Dist. Width 20.2 % (11.5-14.5)
[2025-04-25 06:40] LABS: INR 2.29; PT 25.4 Sec (11.4-14.6)
[2025-04-25 07:00] LABS: Blood Urea Nitrogen 22 mg/dl (7-17); Calcium 8.0 mg/dl (8.4-10.2); Carbon Dioxide 36 mmol/L (22-30); Chloride 97 mmol/L (98-107); Estimated Creatinine Clearance 52 ml/min; Glucose 129 mg/dl (70-99); Magnesium 2.5 mg/dl (1.6-2.3); Potassium 3.8 mmol/L (3.5-5.1); Sodium 138 mmol/L (135-145); eGFR > 60.00
[2025-04-25 07:10] VITALS: BP 155/84
[2025-04-25] MEDS: VANCOCIN 275 MG IV (07:15)
[2025-04-25] MEDS: ADVAIR HFA 115/21 MCG INHALER 2 PUFF INH ×2 (07:50→19:28)
--- NOTE | 2025-04-25 07:55 | PHA.VAN.FU ---
Vancomycin Assessment / Plan
- Assessment
Renal Function: Stable
WBC's are: Stable
In the past 24 hrs, patient has been: Afebrile
Concomitant Antimicrobials: Cefazolin 2 gram IV q8h
- Assessment - Therapeutic Drug Monitoring
Extrapolated Cmax (mcg/mL): 22.5
Peak level was drawn: Appropriately
Extrapolated Cmin (mcg/mL): 8.1
Trough Drawn: Appropriately
Levels were drawn: At steady state
Calculated AUC (mcg*h/mL): 341
Calculated ke: 0.04
Calculated half life (H): 15.3
Calculated Vd (L): 80.8
Calculated Vanc CL (ml/min): 3.67
- Dosing Plan
Adjust Regimen to: Vancomycin 1500 mg IV q24h
New Regimen Predicts: AUC (423)
- Follow Up
Pharmacy will continue to follow.
Vancomycin Follow UP
- -
Patient Age: 79
Patient Sex: Female
Vancomycin Day #: 5
Indication: Skin And Soft Tissue
Requesting Provider: Dr Marshall / Yosvany
Pertinent Antimicrobial Allergies:
NKDA
Height / Weight:
Height 5 ft 1 in
Actual Weight 70.817 kg
Pertinent Past Medical History: BMI 29
- Vital Signs / Lab Results
Temp Pulse Resp BP Pulse Ox
98.9 F 97 16 99/48 96
04/25/25 03:26 04/25/25 03:26 04/25/25 07:52 04/25/25 03:26 04/25/25 07:52
Lab Results - Hematology
04/22/25 04/23/25 04/24/25
08:48 08:35 07:39
WBC 7.8 8.2 8.4
04/25/25
06:08
WBC 8.2
Lab Results - Chemistry
12/05/0504/23/25 04/25/25
08:48 08:35 06:08
BUN 22 H 19 H 22 H
Creatinine 0.8 0.8 0.8
Estimated Creat Clear 52 52 52
Microbiology Results
04/23/25 16:54 Blood Culture - Preliminary
Blood/Venous No Growth in 24 hours- Final report to follow
04/23/25 15:46 Blood Culture - Preliminary
Blood/Venous No Growth in 24 hours- Final report to follow
04/21/25 12:29 Blood Culture - Preliminary
Blood/Venous No Growth in 72 hours- Final report to follow
04/21/25 12:23 Blood Culture - Preliminary
Blood/Venous Positive culture in progress
Gram Stain - Preliminary
04/22/25 11:40 Wound Culture - Preliminary
Leg - Right Staphylococcus species
Gram Stain - Preliminary
04/22/25 14:30 MRSA Screen - Final
Nose No Methicillin Resistant Staphylococcus aureus isolated.
Therapeutic Drug Monitoring
Vancomycin Peak 21.0 ug/ml (18-26) 04/24/25 08:52
Vancomycin Trough 8.0 ug/ml (5-20) 04/25/25 06:08
[2025-04-25 07:58] LABS: Glucose - Point of Care 113 mg/dl (70-99)
[2025-04-25] MEDS: NOVOLOG FLEXPEN-LOW RESISTANCE SC ×3 (08:03→17:05)
[2025-04-25] MEDS: LIPITOR 20 MG PO (08:45)
[2025-04-25] MEDS: NEURONTIN 300 MG PO ×2 (08:45→19:45)
[2025-04-25] MEDS: LASIX 60 MG PO ×2 (08:45→15:53)
[2025-04-25] MEDS: GLUCOPHAGE 500 MG PO ×2 (08:45→17:12)
[2025-04-25] MEDS: LOPRESSOR 25 MG PO ×2 (08:46→19:46)
[2025-04-25] MEDS: ASPIR LOW (ENTERIC COATED) 81 MG PO (08:46)
[2025-04-25] MEDS: SENOKOT-S 1 TABLET PO ×2 (10:02→19:53)
[2025-04-25] MEDS: ROXICODONE 5 MG PO ×2 (10:02→19:46)
--- NOTE | 2025-04-25 10:20 | PN.DE.MGMTRT ---
Insulin Management
- -
04/25/2025: Diabetes Management Consult
79 year old female admitted on 04/21 with RLE cellulitis. PMH: A-Fib, CHF, COPD, GERD, HTN. Patient presented to ER with RLE redness and tightness. She was noted for Hyperglycemia, now with newly diagnosed T2DM. A1C 6.9%, Cr 0.6, eGFR >60.
Patient awake, alert, sitting up in chair, offers no complaints, able to discuss diabetes plan of care.
States she is not on diabetic meds at home and was not aware of diabetes Dx. She is interested and willing to follow instructions and change her diet at home.
Fasting glucose was 129 V, [address] Evans has started pt on low corrective insulin with meals and Metformin 500mg BID, received 1st dose this morning with breakfast. She is ordered a low chol diet with 2000 emmanuel, will modify diet to
low chol /1600, pt is only 5'1'.
Patient will be seen by the IP Dietitian and the Diabetes Nurse Educator for diabetic diet counseling and glucose monitor instructions.
Discussed with Nurse. Will cont to follow
Diabetes History
- -
Type of Diabetes: 2
Pre-Admission Diabetes Regimen
04/25/25
06:08
Creatinine 0.8
Lab Results
Hemoglobin A1c 6.9 % (4.0-5.9) H 04/23/25 08:35
Insulin Pump Settings
IP Diabetes Regimen
04/25/25 04/25/25
06:08 07:57
Glucose 129 H
POC Glucose 113 H
Meal type: Dinner
Amount consumed: 100%
Patient Education
[2025-04-25 11:52] VITALS: BP 105/54
[2025-04-25 12:12] LABS: Glucose - Point of Care 129 mg/dl (70-99)
--- NOTE | 2025-04-25 13:38 | W.PN.ID1 ---
Date of Service
Date of Service: April 25, 2025
Today's Communication
- DC cefazolin
- Continue Vancomycin
- At time of discharge, transition to empiric linezolid 600mg po bid through 05/04/25.
Assessment / Plan
# Relapse vs recurrent RLE cellulitis, 3rd episode in 3 months. Improving
# Right thigh abscesses-spontaneously drained
- posterior thigh wound cx swab: Staph haemolyticus = skin gerardo
- DC cefazolin
- Continue Vancomycin
- At time of discharge, transition to empiric linezolid 600mg po bid through 05/04/25.
# New onset DM
- Discussed importance of glycemic control
Chief Complaint
-: Cellulitis
Subjective / Review of Systems
Thigh lesions spontaneously drained. Feeling better.
Vital Signs / Physical Exam
Vital Signs
Vital Signs
Temp Pulse Resp BP Pulse Ox
99.2 F 97 18 105/54 94
04/25/25 11:52 04/25/25 11:52 04/25/25 11:52 04/25/25 11:52 04/25/25 11:52
Physical Exam
Constitutional: No Acute Distress and Comfortable
Cardiovascular: Regular Rate and S1/S2
Pulmonary: Clear
Gastrointestinal: Soft, Non Tender, Non Distended and Normal Bowel Sounds
Extremities: Erythema (RLE erythema continues to improve now localized to medial thigh lesions with decreased erythema. ) and Other (R medial thigh papules x 3 have opened, dry); Negative Edema
Neurological: AO x 3
Objective Data
Lab Data
Lab Results
04/25/25 06:08
04/25/25 06:08
PT 25.4 Sec (11.4-14.6) H 04/25/25 06:08
INR 2.29 04/25/25 06:08
APTT 41.3 Sec (23.4-35.0) H 04/21/25 12:23
Estimated Creat Clear 52 ml/min 04/25/25 06:08
Most recent labs reviewed.
Micro Results:
04/21/25 12:29 Blood Culture - Preliminary
Blood/Venous No Growth in 4 days- Final report to follow
04/21/25 12:23 Blood Culture - Preliminary
Blood/Venous Streptococcus species
Gram Stain - Preliminary
04/22/25 11:40 Wound Culture - Final
Leg - Right Staphylococcus haemolyticus
Gram Stain - Final
04/23/25 16:54 Blood Culture - Preliminary
Blood/Venous No Growth in 24 hours- Final report to follow
04/23/25 15:46 Blood Culture - Preliminary
Blood/Venous No Growth in 24 hours- Final report to follow
04/22/25 14:30 MRSA Screen - Final
Nose No Methicillin Resistant Staphylococcus aureus isolated.
peripheral vascular ultrasound on 04/21/25:
IMPRESSION:
No evidence of right lower extremity deep venous thrombosis.
[2025-04-25 14:12] VITALS: BP 121/67; PULSE 120; O2SAT 94
--- NOTE | 2025-04-25 14:19 | PTCARENOTE ---
04/25/2025 DIABETES EDUCATION CONSULT
I met with patient, she is IP with [facility]. I reviewed diabetes management, she is newly diagnosed with DM, current HbA1c 6.9%.
I educated on physiology of T2D, organ damage, managing with medications, monitoring BG, nutrition, activity, sleep and managing stress. I reinforced signs of hyperglycemia, hypoglycemia and hypoglycemia protocol; BS parameters and recommended HbA1c
goals, glucometer and CGM instructions, glucose tracker, medic alert bracelet and outpatient DSME program. Written material provided.
I provided patient with a [employer] glucometer sample kit. Provided verbal instructions on proper blood sugar testing technique, and demonstration with patient�s participation.
Encouraged patient to follow up with PCP for post d/c appointment and to monitor medication and blood glucose levels. Provided list of endocrinologists if desired, to contact insurance company to verify in network status. Requested a
prescription for blood sugar testing supplies to be sent to his pharmacy on record. Patient verbalized understanding.
--- NOTE | 2025-04-25 14:42 | CM ---
Chart reviewed. Discussed w/ team
Patient cont w/ 2L O2 at this time, doesn't use O2 at home
Therapy rec home health, patient prev used [facility], will confirm if patient would like to use again
Plan: Home, will watch for O2 needs
--- NOTE | 2025-04-25 14:48 | W.PN.HOSP.TC ---
Today's Communication/Plan
-
Assessment / Plan
Assessment / Plan
General: No Apparent Distress, Comfortable and Conversant
HEENT: NormoCephalic, Moist mucous membranes, Atraumatic
Respiratory: Clear and Non Labored Respirations
Cardiac: S1/S2 and Regular Rhythm; No Rub or Gallop
GI: Soft, Non Tender, Non Distended and Normal Bowel Sounds
Musculoskeletal: No Edema, right groin with multiple cysts and surrounding erythema improving
: NO Bellamy
Neuro: Awake, Alert, Nonfocal/grossly intact
Psych: Calm and cooperative
Assessment:
RLE cellulitis, recurrent
- s/p multiple antibiotic courses
- cellulitis area demarcate in ER, continues improving today
- Antibiotic day 5. Discontinue Ancef and continuing Vanco
- Wound culture growing staph hemolyticus sensitive only to vancomycin, blood cxs growing strep with sensitivities pending
- CT imaging with contrast shows no evidence of abscess, does show multiple inflamed sebaceous cysts
- ID following, recommend continuing antibiotic treatment with linezolid 600 mg p.o. twice daily through 04/30/2025
- elevate RLE as much as possible, warm compresses
- Starting diabetic medications for better blood glucose control which may be a factor with this recurrent infection
- Dermatology recommending outpatient evaluation
Diabetes mellitus type 2:
- Hyperglycemic during this admission, multiple spot glucose checks greater than 200
- not on diabetic meds at home
- Hemoglobin A1c 6.9%
- Starting low-dose metformin 500 mg twice daily
- Sliding scale insulin as needed
- Diabetic education
Acute respiratory failure with hypoxia:
- Patient was saturating in the low 80s on room air, recovered to mid 90s on 2 L via nasal cannula
- Not on supplemental oxygen at home
- Does not clinically appear volume overloaded, has been consistently taking her home Lasix dose of 60 mg p.o. twice daily
- Will check chest x-ray
- May be due to COPD
- INR therapeutic, remains on home warfarin
- Will arrange for home oxygen as needed
parox A. Fib
chronic HFpEF
cardiomyopathy (HCM)
- continue Camzyos if able to bring in from home
- continue ASA/Statin
- continue Lasix BID
- continue BB
- continue warfarin; f/u INRs with goal 2-3
COPD
- continue Fluticasone/Salmeterol
- prn Nebs
GERD
Essential HTN
- continue BB
DVT ppx: Warfarin
Code: Full
Anticipated Discharge: 24 - 48 hours
Subjective/Interval History
-
Date of Service: April 25, 2025
Patient was seen and examined at bedside this morning. Continues to have pain at infected right groin site. She was frustrated yesterday about her new diagnosis of diabetes mellitus with a hemoglobin A1c of 6.9%. We discussed this diagnosis
thoroughly and how it possibly relates to her recurrent infections. She is okay with starting metformin and a diabetic diet.
Objective Data
-
Labs:
Laboratory Results
04/25/25
06:08
WBC 8.2
Hgb 14.6
Hct 50.2 H
Plt Count 110 L
PT 25.4 H
INR 2.29
Sodium 138
Potassium 3.8
Chloride 97 L
Carbon Dioxide 36 H
BUN 22 H
Creatinine 0.8
Glucose 129 H
Calcium 8.0 L
Vital Signs:
Vital Signs
Temp Pulse Resp BP Pulse Ox
99.2 F 97 18 105/54 94
04/25/25 11:52 04/25/25 11:52 04/25/25 11:52 04/25/25 11:52 04/25/25 11:52
I&O
04/24/25 04/25/25 04/26/25
06:59 06:59 06:59
Intake Total 600 / 600 840 / 840
Output Total 600 / 600
Balance 0 / 0 840 / 840
Review of Systems
-
History Source: Patient
All other systems: Reviewed and negative
Skin: Reports Sores
Physical Exam
-
General: No Apparent Distress
[2025-04-25 15:11] VITALS: BP 137/74
[2025-04-25 16:53] LABS: Glucose - Point of Care 144 mg/dl (70-99)
[2025-04-25] MEDS: LASIX 60 MG IV (17:06)
[2025-04-25] MEDS: VITAMIN C 1000 MG PO (17:09)
[2025-04-25] MEDS: COUMADIN 2.5 MG PO (17:12)
[2025-04-25 23:48] VITALS: BP 113/65
[2025-04-26 06:00] VITALS: BMI 29.8
[2025-04-26] MEDS: VANCOCIN 530 MG IV (06:22)
[2025-04-26 07:25] LABS: Glucose - Point of Care 94 mg/dl (70-99)
[2025-04-26] MEDS: NOVOLOG FLEXPEN-LOW RESISTANCE SC ×2 (07:55→11:52)
[2025-04-26] MEDS: ADVAIR HFA 115/21 MCG INHALER 2 PUFF INH ×2 (08:03→19:45)
[2025-04-26 08:33] LABS: Hematocrit 52.4 % (37.0-47.0); Hemoglobin 15.3 g/dL (12.0-16.0); Mean Corp Hgb Conc. 29.2 g/dL (33.0-37.0); Mean Corpuscular Volume 93.9 fL (81.0-99.0); Nucleated Red Blood Cells % 0 %; Platelet Count 119 10^3/uL (130-400); Red Cell Dist. Width 20.0 % (11.5-14.5)
[2025-04-26 08:35] LABS: INR 1.92; PT 22.1 Sec (11.4-14.6)
[2025-04-26] MEDS: MIRALAX 17 GRAMS PO (08:44)
[2025-04-26] MEDS: LIPITOR 20 MG PO (08:45)
[2025-04-26] MEDS: NEURONTIN 300 MG PO ×2 (08:45→20:08)
[2025-04-26] MEDS: SENOKOT-S 1 TABLET PO (08:46)
[2025-04-26] MEDS: LASIX 40 MG IV ×2 (08:46→15:23)
[2025-04-26] MEDS: ASPIR LOW (ENTERIC COATED) 81 MG PO (08:46)
[2025-04-26] MEDS: GLUCOPHAGE 500 MG PO ×2 (08:46→16:50)
[2025-04-26] MEDS: LOPRESSOR 25 MG PO ×2 (08:47→20:08)
[2025-04-26 08:55] LABS: Blood Urea Nitrogen 24 mg/dl (7-17); Calcium 8.3 mg/dl (8.4-10.2); Carbon Dioxide 35 mmol/L (22-30); Chloride 94 mmol/L (98-107); Estimated Creatinine Clearance 52 ml/min; Glucose 100 mg/dl (70-99); Potassium 3.9 mmol/L (3.5-5.1); Sodium 137 mmol/L (135-145); eGFR > 60.00
--- NOTE | 2025-04-26 09:01 | PHA.VAN.FU ---
Vancomycin Assessment / Plan
- Assessment
Renal Function: Stable
WBC's are: WNL
In the past 24 hrs, patient has been: Afebrile
- Dosing Plan
Continue: Vanc 1500mg Q24H
- Monitoring Plan
No level(s) ordered at this time: consider levels in next few days
- Follow Up
Pharmacy will continue to follow.
Vancomycin Follow UP
- -
Patient Age: 79
Patient Sex: Female
Vancomycin Day #: 6
Indication: Skin And Soft Tissue
Requesting Provider: Dr Marshall / Yosvany
Pertinent Antimicrobial Allergies:
NKDA
Height / Weight:
Height 5 ft 1 in
Actual Weight 71.384 kg
Pertinent Past Medical History: BMI 29, DM 2
- Vital Signs / Lab Results
Temp Pulse Resp BP Pulse Ox
97.8 F 100 16 133/75 96
04/25/25 23:48 04/26/25 08:46 04/26/25 08:07 04/26/25 08:46 04/26/25 08:07
Lab Results - Hematology
04/23/25 04/24/25 04/25/25
08:35 07:39 06:08
WBC 8.2 8.4 8.2
04/26/25
07:42
WBC 8.0
Lab Results - Chemistry
04/23/25 04/25/25 04/26/25
08:35 06:08 07:42
BUN 19 H 22 H 24 H
Creatinine 0.8 0.8 0.8
Estimated Creat Clear 52 52 52
Microbiology Results
04/23/25 16:54 Blood Culture - Preliminary
Blood/Venous No Growth in 48 hours- Final report to follow
04/23/25 15:46 Blood Culture - Preliminary
Blood/Venous No Growth in 48 hours- Final report to follow
04/21/25 12:29 Blood Culture - Preliminary
Blood/Venous No Growth in 4 days- Final report to follow
04/21/25 12:23 Blood Culture - Preliminary
Blood/Venous Streptococcus species
Gram Stain - Preliminary
04/22/25 11:40 Wound Culture - Final
Leg - Right Staphylococcus haemolyticus
Gram Stain - Final
Therapeutic Drug Monitoring
Vancomycin Peak 21.0 ug/ml (18-26) 04/24/25 08:52
Vancomycin Trough 8.0 ug/ml (5-20) 04/25/25 06:08
[2025-04-26 09:16] VITALS: BP 135/75
[2025-04-26] MEDS: ROXICODONE 5 MG PO ×2 (09:26→20:14)
[2025-04-26 11:50] LABS: Glucose - Point of Care 123 mg/dl (70-99)
--- NOTE | 2025-04-26 12:49 | PN.DE.MGMTRT ---
Insulin Management
- -
04/26/2025: Diabetes Management Consult Follow up
79 year old female admitted on 04/21 with RLE cellulitis. PMH: A-Fib, CHF, COPD, GERD, HTN. Patient presented to ER with RLE redness and tightness. She was noted for Hyperglycemia, now with newly diagnosed T2DM. A1C 6.9%, Cr 0.8, eGFR >60.
Patient awake, alert, sitting up in chair, offers no complaints, able to discuss diabetes plan of care.
States she is not on diabetic meds at home and was not aware of diabetes Dx. She is interested and willing to follow instructions and change her diet at home.
Fasting glucose was 94 today. Currently receiving low corrective insulin with meals and Metformin 500mg BID.
Patient was seen by the IP Dietitian and the Diabetes Nurse Educator for diabetic diet counseling and glucose monitor instructions.
Discussed with Nurse. Will cont to follow
Diabetes History
- -
Type of Diabetes: 2
Pre-Admission Diabetes Regimen
04/26/25
07:42
Creatinine 0.8
Lab Results
Hemoglobin A1c 6.9 % (4.0-5.9) H 04/23/25 08:35
Insulin Pump Settings
IP Diabetes Regimen
04/25/25 04/26/25 04/26/25
16:52 07:23 07:42
Glucose 100 H
POC Glucose 144 H 94
04/26/25
11:49
Glucose
POC Glucose 123 H
Meal type: Lunch
Meal type: Breakfast
Amount consumed: 100%
Amount consumed: 100%
Patient Education
[2025-04-26] MEDS: DULCOLAX 10 MG RECTAL (13:07)
--- NOTE | 2025-04-26 13:09 | W.PN.ID1 ---
Date of Service
Date of Service: April 26, 2025
Today's Communication
Transition Vancomycin to linezolid 600mg po bid through 05/04/25.
Assessment / Plan
# Relapse vs recurrent RLE cellulitis, 3rd episode in 3 months. Continues to improve
# Right thigh abscesses-spontaneously drained
- posterior thigh wound cx swab: Staph haemolyticus = skin gerardo
- transition Vancomycin to linezolid 600mg po bid through 05/04/25.
-avoid tyramine-rich foods while on linezolid.
# Acute on chronic CHF
- Diuresing
# New onset DM
- Discussed importance of glycemic control
Chief Complaint
-: Cellulitis
Subjective / Review of Systems
c/o SOB and fluid overload.
Vital Signs / Physical Exam
Vital Signs
Vital Signs
Temp Pulse Resp BP Pulse Ox
98.4 F 100 18 135/75 92
04/26/25 09:16 04/26/25 09:16 04/26/25 09:16 04/26/25 09:16 04/26/25 09:16
Physical Exam
Constitutional: No Acute Distress and Comfortable
Cardiovascular: Regular Rate and S1/S2
Pulmonary: Rales
Gastrointestinal: Soft, Non Tender, Non Distended and Normal Bowel Sounds
Extremities: Edema, Erythema (RLE erythema around medial thigh lesions continues to decrease) and Other (R medial thigh papules x 3 have opened, dry)
Neurological: AO x 3
Objective Data
Lab Data
Lab Results
04/26/25 07:42
04/26/25 07:42
PT 22.1 Sec (11.4-14.6) H 04/26/25 07:42
INR 1.92 04/26/25 07:42
APTT 41.3 Sec (23.4-35.0) H 04/21/25 12:23
Estimated Creat Clear 52 ml/min 04/26/25 07:42
Most recent labs reviewed.
Micro Results:
04/23/25 16:54 Blood Culture - Preliminary
Blood/Venous No Growth in 48 hours- Final report to follow
04/23/25 15:46 Blood Culture - Preliminary
Blood/Venous No Growth in 48 hours- Final report to follow
04/21/25 12:29 Blood Culture - Preliminary
Blood/Venous No Growth in 4 days- Final report to follow
04/21/25 12:23 Blood Culture - Preliminary
Blood/Venous Streptococcus species
Gram Stain - Preliminary
04/22/25 11:40 Wound Culture - Final
Leg - Right Staphylococcus haemolyticus
Gram Stain - Final
04/22/25 14:30 MRSA Screen - Final
Nose No Methicillin Resistant Staphylococcus aureus isolated.
peripheral vascular ultrasound on 04/21/25: no evidence of right lower extremity deep venous thrombosis.
--- NOTE | 2025-04-26 14:16 | W.PN.HOSP.TC ---
Today's Communication/Plan
-
Assessment / Plan
Assessment / Plan
General: No Apparent Distress, Comfortable and Conversant
HEENT: NormoCephalic, Moist mucous membranes, Atraumatic
Respiratory: Clear and Non Labored Respirations
Cardiac: S1/S2 and Regular Rhythm; No Rub or Gallop
GI: Soft, Non Tender, Non Distended and Normal Bowel Sounds
Musculoskeletal: Bilateral lower extremity edema, right groin with multiple cysts and surrounding erythema improving
: NO Bellamy
Neuro: Awake, Alert, Nonfocal/grossly intact
Psych: Calm and cooperative
Assessment:
RLE cellulitis, recurrent
- s/p multiple antibiotic courses
- cellulitis area demarcate in ER, continues improving today
- Antibiotic day 5. Discontinue Ancef and Vanco, transitioned to linezolid 600 mg p.o. twice daily through 05/04
- Wound culture growing staph hemolyticus sensitive only to vancomycin, blood cxs growing strep with sensitivities pending
- CT imaging with contrast shows no evidence of abscess, does show multiple inflamed sebaceous cysts
- ID following, recommendations appreciated
- elevate RLE as much as possible, warm compresses, local wound care
- Starting diabetic medications for better blood glucose control which may be a factor with this recurrent infection
- Dermatology recommending outpatient evaluation
Acute on chronic HFpEF:
- Developed pulmonary edema and hypoxia, started on supplemental oxygen
- Newly edematous lower extremities
- Transitioned scheduled oral Lasix to 40 mg IV twice daily
- Monitor I's and O's and daily weights
- Cardiology consulted
- Continue fluid restriction
- Beta-blockade with metoprolol to tartrate 25 mg p.o. twice daily
Diabetes mellitus type 2:
- Hyperglycemic during this admission, multiple spot glucose checks greater than 200
- not on diabetic meds at home
- Hemoglobin A1c 6.9%
- Starting low-dose metformin 500 mg twice daily, glucose now better controlled
- Will need to monitor INR closely considering potential interaction between metformin and warfarin
- Sliding scale insulin as needed
- Diabetic education
Acute respiratory failure with hypoxia:
- Secondary to pulmonary edema in the setting of acute on chronic HFpEF
- Continue supplemental oxygen as needed
- Treat underlying heart failure as outlined above
parox A. Fib
cardiomyopathy (HCM)
- continue Camzyos if able to bring in from home
- continue ASA/Statin
- continue BB
- continue warfarin 2.5 mg nightly, giving an additional 2.5 mg tonight 04/26 for total of 5 mg today due to INR of 1.9; f/u INRs with goal 2-3, adjust warfarin dose as needed considering possible interaction with metformin
COPD
- continue Fluticasone/Salmeterol
- prn Nebs
GERD
Essential HTN
- continue BB
DVT ppx: Warfarin
Code: Full
Anticipated Discharge: 24 - 48 hours
Subjective/Interval History
-
Date of Service: April 26, 2025
Patient was seen and examined at bedside this morning. Remains on supplemental oxygen due to pulmonary edema. Lower extremities remain edematous despite IV diuresis.
Objective Data
-
Labs:
Laboratory Results
04/26/25
07:42
WBC 8.0
Hgb 15.3
Hct 52.4 H
Plt Count 119 L
PT 22.1 H
INR 1.92
Sodium 137
Potassium 3.9
Chloride 94 L
Carbon Dioxide 35 H
BUN 24 H
Creatinine 0.8
Glucose 100 H
Calcium 8.3 L
Vital Signs:
Vital Signs
Temp Pulse Resp BP Pulse Ox
98.4 F 100 18 135/75 92
04/26/25 09:16 04/26/25 09:16 04/26/25 09:16 04/26/25 09:16 04/26/25 09:16
I&O
04/25/25 04/26/25 04/27/25
06:59 06:59 06:59
Intake Total 840 / 840 960 / 960
Balance 840 / 840 960 / 960
Review of Systems
-
History Source: Patient
All other systems: Reviewed and negative
Musculoskeletal: Reports Edema (Bilateral lower extremities)
Skin: Reports Sores (Right groin)
Physical Exam
-
General: No Apparent Distress
--- NOTE | 2025-04-26 14:25 | CON.CAR ---
Addendum entered and electronically signed by Rigoberto Brunson MD 04/26/25 18:11:
I saw and examined the patient.
The Dry Mop Maker's note was reviewed and I agree with the note.
Comment:
GEN: No distress, awake, Ox3
HEENT: supple, anicteric, mmm
LUNGS: bilat rhonchi
CV: Irreg, S1/S2, 1/6 syst LSB, S4+
ABD: soft, BS+, NT/ND
EXT: ++ edema
NEURO: Gross non-focal
SKIN: No rash
Plan:
This is a complex 79-year-old female with past medical history of transcatheter mitral valve replacement of the mitral valve, paroxysmal atrial fibrillation status post ablation March 2025, hypertrophic cardiomyopathy severe LVH on Camzyos,
cellulitis, mild aortic stenosis, history of endocarditis hypertension, hyperlipidemia, and COPD who was admitted on April 21, 2025 with continued concerns for right lower extremity cellulitis and right lower extremity edema. She has been
followed by infectious disease and treated with initially vancomycin and now linezolid. This is her third episode of cellulitis. There was 1 blood culture positive for strep. Her wound culture revealed staph hemolyticus. EKG today reveals
recurrent atrial fibrillation/flutter with heart rates 100-110bpm.
She is in acute on chronic heart failure with preserved ejection fraction. Start Lasix 60 mg IV twice daily.
Check echocardiogram to look for endovascular infection. Continue linezolid for cellulitis
She is back in A-fib with modestly elevated rates. Continue metoprolol and Coumadin. INR 1.92.
Will discuss plan with electrophysiology in AM. Ideally we would like to try to restore sinus rhythm as this would help her heart failure and edema. Will consider initiation of amiodarone
We need to adjust the Camzyos dose depending on amiodarone.
She would need a YUE prior to cardioversion as her INR is subtherapeutic and she has had left atrial appendage thrombus in the past.
Original Note:
Consultation
Consultation Request
Date/Time Consultation Requested: 04/26/2025
Date/Time Consultation Performed: 04/26/2025
Requesting Provider: Dr. Jensen
Performing Provider: Dr. Brunson
Reason for Consultation: Acute HF
Medical History
-
History of Present Illness:
Patient was admitted last week with recurrent RLE cellulitis and has been undergoing treatment, cardiology is now consulted for recurrent HF. Patient came to the ER back on 04/21/2025 with concerns for recurrent RLE cellulitis described as pain
erythema and swelling in the RLE. Patient had similar admission in February. Infectious diseases following along and on initial blood cultures drawn in the ER the patient grew Strep, but no growth in subsequent blood cultures. Wound cultures
growing Staph hemolyticus. Patient is currently on a regimen of Zyvox. Patient weighed 154 lbs on admission and weight is up to 157 lbs today. Patient has been requiring supplemental oxygen since admission and oxygen demands have increased as
high as 3 L NC at times.
PMH:
Recent admission for PVI and posterior wall ablation 03/16/2025
Recent admission for RLE cellulitis 03/04/2025 until 03/09/2025
Recent admission for acute HF 02/22/2025 until 02/26/2025
Recurrent RLE cellulitis
Chronic HFpEF
Mitral valve disease
s/p bioprosthetic mitral valve replacement 2014
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
Spontaneous echo contrast in the left atrium and definite thrombus in the MARIANELA by YUE 08/13/2024
No longer evidence of MARIANELA thrombus on repeat YUE 10/06/2024
Spontaneous echo to contrast again in the LA with concern for possible MARIANELA thrombus by YUE 01/20/2025
Eliquis transitioned to warfarin for LA smoke by YUE 08/13/24
Paroxysmal atrial fibrillation and atypical atrial flutter
s/p PVI 04/2023
planned for repeat PVI with PFA 03/16/25
Recurrent atrial flutter noted on ECG 04/26/2025
HCM, severe concentric LVH, on Camzyos, dosing changes managed at [facility]
PHTN
s/p RHC at [facility] 12/2023
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
Mild , peak to peak gradient 11 mmHg by cath at [facility] 07/29/24
h/o endocarditis
Hypertension
Hyperlipidemia
COPD
Past Medical History
Past Medical History: Other (in HPI)
Past Surgical History: Appendectomy, Cardiac (Bioprosthetic mitral valve replacement 2014, TMVR at [facility] 10/15/2024) and Orthopedic
Social History
Tobacco: Former Smoker
Alcohol: Daily (1 light beer a day)
Drug: None
Personal: Single
Living: Alone
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
Family History
Family History: Reviewed & Not Pertinent
Allergies / Home Medications
Allergy/AdvReac Type Severity Reaction Status Date / Time
No Known Allergies Allergy Verified 04/21/25 09:25
�Medication �Instructions �Recorded �Confirmed �Type
atorvastatin 20 mg tablet (Lipitor) 20 mg PO DAILY High Cholesterol 06/21/23 04/21/25 History
acetaminophen 325 mg tablet 650 mg PO Q4HPRN PRN MILD PAIN 08/23/24 04/21/25 History
(Tylenol)
ascorbic acid (vitamin C) 500 mg 1,000 mg PO QPM Supplement 08/23/24 04/21/25 History
tablet (Vitamin C)
warfarin 2 mg tablet (Jantoven) 2.5 mg PO QPM Blood Clot 10/03/24 04/21/25 History
Prevention/Tx
aspirin 81 mg tablet,delayed 81 mg PO DAILY Heart 01/20/25 04/21/25 History
release Disease/Condition
furosemide 20 mg tablet 60 mg PO BID Fluid 01/20/25 04/21/25 History
Retention/Swelling
metoprolol tartrate 25 mg tablet 25 mg PO BID Heart 01/20/25 04/23/25 History
Disease/Condition
gabapentin 300 mg capsule 300 mg PO BID moderate pains 02/22/25 04/21/25 History
mavacamten 5 mg capsule (Camzyos) 10 mg (2 x 5 mg) PO DAILY Heart 02/24/25 04/21/25 Rx
disease/condition #30 caps
fluticasone 113mcg-salmeterol 1 inh inhalation R BID 03/16/25 04/21/25 History
14mcg/actuation breath act,powder
sensor
albuterol sulfate 90 mcg/actuation 2 puff inhalation R Q6HPRN PRN 04/21/25 04/21/25 History
aerosol inhaler SHORTNESS OF BREATH
blood sugar diagnostic (Contour #60 ea 04/25/25 Rx
Next Test Strips)
lancets (Microlet Lancet) #60 ea 04/25/25 Rx
Review of Systems
-
History Source: Patient
All other systems: Negative unless noted
Physical Exam
Vital Signs
Temp Pulse Resp BP Pulse Ox
98.4 F 100 18 135/75 92
04/26/25 09:16 04/26/25 09:16 04/26/25 09:16 04/26/25 09:16 04/26/25 09:16
GEN: No distress, awake, alert, oriented x3
HEENT: Dry MM
LUNGS: 2 L NC. Bibasilar rales without wheeze
CV: Atrial flutter on telemetry. Reg irreg, S1/S2, no murmur
EXT: +2 right worse than left LE edema. No clubbing, cyanosis or lesions B/L
NEURO: Gross non-focal
SKIN: Quarter sized lesions on the right inner thigh and right inner thigh skin is red and beefy
Lab Results
04/26/25 07:42
04/26/25 07:42
Impression / Plan
-
PCP: Antonieta Clark MD
CDY: Yahaira Evans MD locally and Dr. Pat at [facility] ([phone])
Assessment:
Patient admitted with RLE cellulitis 04/21/2025
Recent admission for PVI and posterior wall ablation 03/16/2025
Recent admission for RLE cellulitis 03/04/2025 until 03/09/2025
Recent admission for acute HF 02/22/2025 until 02/26/2025
Recurrent RLE cellulitis
Acute on chronic HFpEF
Mitral valve disease
s/p bioprosthetic mitral valve replacement 2014
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
Spontaneous echo contrast in the left atrium and definite thrombus in the MARIANELA by YUE 08/13/2024
No longer evidence of MARIANELA thrombus on repeat YUE 10/06/2024
Spontaneous echo to contrast again in the LA with concern for possible MARIANELA thrombus by YUE 01/20/2025
Eliquis transitioned to warfarin for LA smoke by YUE 08/13/24
Paroxysmal atrial fibrillation and atypical atrial flutter
s/p PVI 04/2023
planned for repeat PVI with PFA 03/16/25
Recurrent atrial flutter noted on ECG 04/26/2025
HCM, severe concentric LVH, on Camzyos, dosing changes managed at [facility]
PHTN
s/p RHC at [facility] 12/2023
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
Mild , peak to peak gradient 11 mmHg by cath at [facility] 07/29/24
h/o endocarditis
Hypertension
Hyperlipidemia
COPD
YUE 08/13/24: [facility] at [place] study, EF 65%, moderately dilated RV with mild RV hypokinesis, severely dilated LA with evidence of spontaneous echo contrast and definite MARIANELA thrombus, bioprosthetic mitral valve with marked thickening and
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
YUE 10/06/2024: EF 60 to 65%, severe concentric LVH, mildly dilated RV and mildly reduced RV systolic function, some spontaneous echo contrast seen in the left atrial cavity, but no left atrial appendage thrombus, bioprosthetic mitral valve with
significant thickening and calcification, restricted leaflet motion and the valve visually appears to have moderate to severe stenosis, mean mitral valve gradient 11 mmHg, moderate to severe MR with flow coming into the left atrial appendage, mild
to moderate aortic regurgitation, moderate TR
YUE 01/20/25: EF 55 to 60%, severe LVH, aortic sclerosis, mild to moderate AR, well-seated bioprosthetic valve in mitral position with mean mitral gradient 6 mmHg, no MR, again spontaneous echo contrast and possible thrombus in left atrial appendage
Echo 02/22/2025: EF 67% without obvious LVOT gradient, s/p TMVR with previous surgical MVR peak/mean 22/11 mmHg, no MR, mild to moderate aortic regurgitation, dilated RV with hypokinesis, severe TR with PAP 74 mmHg
Plan:
-Patient was admitted last week with recurrent RLE cellulitis and has been undergoing treatment, cardiology is now consulted for recurrent HF. Patient came to the ER back on 04/21/2025 with concerns for recurrent RLE cellulitis described as pain
erythema and swelling in the RLE. Patient had similar admission in February. Infectious diseases following along and on initial blood cultures drawn in the ER the patient grew Strep, but no growth in subsequent blood cultures. Wound cultures
growing Staph hemolyticus. Patient is currently on a regimen of Zyvox. Patient weighed 154 lbs on admission and weight is up to 157 lbs today. Patient has been requiring supplemental oxygen since admission and oxygen demands have increased as
high as 3 L NC at times.
-ECG not checked this admission, ordered and then reviewed by me 04/26/2025 appears to be atypical atrial flutter
-Weight is up to 157 lbs on 04/26/2025 and previous dry weight in the last year has been as low as 149 lbs.
-Check proBNP, ordered by me
-Continue Lasix 60 mg IV BID. Patient was taking Lasix 60 mg PO BID prior to admission.
-EF was 67% by echo 02/22/2025
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
-Patient also follows with Dr. Pat at [facility] for HCM and is chronically on Camzyos managed by their office. Patient's last acute HF admission in February seem to correlate with an up titration of her Camzyos to 10 mg daily, communication at that
time with Dr. Pat's office ended with the patient resuming her Camzyos at 10 mg daily and following up with their office.
-Patient has a history of paroxysmal atrial fibrillation and flutter. Patient had a PVI in 2022 and then had PVI and posterior wall ablation 03/16/2025. Telemetry added by me and checking urgent ECG, patient sounds irregular on auscultation. As
noted above ECG revealed recurrent atrial flutter. Will review with EP on 04/27/2025 possibly adding AAD and considering a YUE/CV
-Continue Lopressor 25 mg BID
-Patient was previously on DOAC, but this was stopped due to concern for echo contrast and thrombus, patient transition to warfarin. INR was therapeutic at 2.81 on admission and is down to 1.92 on 04/26/2025, labs reviewed by me.
-INR goal is 2-3. INRs managed by cardiology office with draws at [facility].
[2025-04-26] MEDS: MILK OF MAGNESIA 30 ML PO (14:49)
--- NOTE | 2025-04-26 15:48 | CM ---
F/U: Hospitalist stated that patient is being treated for CHF, not ready, still hopes that patient will not need O2. PLAN: Home with Home Care- will need to discuss this.
[2025-04-26] MEDS: FLEET PHOSPHATE ENEMA-ADULT 135 ML RECTAL (16:45)
[2025-04-26] MEDS: VITAMIN C 1000 MG PO (16:50)
[2025-04-26] MEDS: COUMADIN 2.5 MG PO (16:50)
[2025-04-26 17:13] LABS: Glucose - Point of Care 173 mg/dl (70-99)
[2025-04-26 17:24] VITALS: BP 127/69
[2025-04-26] MEDS: NOVOLOG FLEXPEN-LOW RESISTANCE 1 UNITS SC (18:05)
[2025-04-26 19:17] VITALS: BP 153/78
[2025-04-26] MEDS: ZYVOX 600 MG PO (20:08)
[2025-04-26 21:22] LABS: Glucose - Point of Care 136 mg/dl (70-99)
[2025-04-26 23:48] VITALS: BP 121/63
[2025-04-27 03:31] VITALS: BP 115/68
[2025-04-27 05:01] VITALS: BMI 30.1
[2025-04-27] MEDS: ROXICODONE 5 MG PO ×3 (05:03→20:59)
[2025-04-27 07:35] LABS: Glucose - Point of Care 108 mg/dl (70-99)
[2025-04-27] MEDS: NOVOLOG FLEXPEN-LOW RESISTANCE SC ×3 (07:40→17:13)
[2025-04-27] MEDS: ADVAIR HFA 115/21 MCG INHALER 2 PUFF INH ×2 (07:41→19:48)
[2025-04-27 08:02] VITALS: BP 130/74
[2025-04-27 08:03] LABS: INR 1.97; PT 22.1 Sec (11.4-14.6)
[2025-04-27 08:24] LABS: Blood Urea Nitrogen 26 mg/dl (7-17); Calcium 8.3 mg/dl (8.4-10.2); Carbon Dioxide 35 mmol/L (22-30); Chloride 93 mmol/L (98-107); Estimated Creatinine Clearance 53 ml/min; Glucose 103 mg/dl (70-99); Potassium 3.9 mmol/L (3.5-5.1); Sodium 132 mmol/L (135-145); eGFR > 60.00
[2025-04-27] MEDS: ZYVOX 600 MG PO ×2 (08:57→20:55)
[2025-04-27] MEDS: LOPRESSOR 25 MG PO ×2 (08:57→20:56)
[2025-04-27] MEDS: SENOKOT-S 1 TABLET PO (08:57)
[2025-04-27] MEDS: LIPITOR 20 MG PO (08:57)
[2025-04-27] MEDS: ASPIR LOW (ENTERIC COATED) 81 MG PO (08:57)
[2025-04-27] MEDS: LASIX 60 MG IV ×2 (08:57→17:12)
[2025-04-27] MEDS: NEURONTIN 300 MG PO ×2 (08:57→20:55)
[2025-04-27] MEDS: GLUCOPHAGE 500 MG PO ×2 (08:57→17:12)
[2025-04-27] MEDS: MIRALAX 17 GRAMS PO (08:58)
--- NOTE | 2025-04-27 10:53 | W.PN.CARDCBS ---
Addendum entered and electronically signed by Rigoberto Brunson MD 04/27/25 16:14:
I saw and examined the patient.
The Wire Weaving Loom Setter's note was reviewed and I agree with the note.
Comment:
GEN: No distress, awake, Ox3
HEENT: supple, anicteric, mmm
LUNGS: CTA, no wheezes/rales
CV: Irreg, S1/S2, 1/6 syst LSB, no gallop
ABD: soft, BS+, NT/ND
EXT: ++ edema
NEURO: Gross non-focal
SKIN: No rash
Plan:
Remains volume overloaded. Increase Lasix to 60 mg IV twice daily. Needs continued diuresis. Creatinine stable at 0.8.
Remains in A-fib. Will start amiodarone 400 mg p.o. 3 times daily. Continue metoprolol and Coumadin.
Discussed case with electrophysiology. Had ablation in March. Would recommend YUE/cardioversion to try to restore sinus rhythm.
INR has been slightly therapeutic this admission and has history of left atrial appendage thrombus.
Remains on linezolid for cellulitis. ID following
Original Note:
Today's Communication / Plan
-
Increase Lasix to 60 mg IV BID
Start amiodarone 400 mg TID, no known interactions with Camzyos on my review
Impression / Plan
-
PCP: Antonieta Clark MD
CDY: Yahaira Evans MD locally and Dr. Pat at [facility] ([phone])
Assessment:
Patient admitted with RLE cellulitis 04/21/2025
Recent admission for PVI and posterior wall ablation 03/16/2025
Recent admission for RLE cellulitis 03/04/2025 until 03/09/2025
Recent admission for acute HF 02/22/2025 until 02/26/2025
Recurrent RLE cellulitis
Acute on chronic HFpEF
Mitral valve disease
s/p bioprosthetic mitral valve replacement 2014
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
Spontaneous echo contrast in the left atrium and definite thrombus in the MARIANELA by YUE 08/13/2024
No longer evidence of MARIANELA thrombus on repeat YUE 10/06/2024
Spontaneous echo to contrast again in the LA with concern for possible MARIANELA thrombus by YUE 01/20/2025
Eliquis transitioned to warfarin for LA smoke by YUE 08/13/24
Paroxysmal atrial fibrillation and atypical atrial flutter
s/p PVI 04/2023
planned for repeat PVI with PFA 03/16/25
Recurrent atrial flutter noted on ECG 04/26/2025
HCM, severe concentric LVH, on Camzyos, dosing changes managed at [facility]
PHTN
s/p RHC at [facility] 12/2023
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
Mild , peak to peak gradient 11 mmHg by cath at [facility] 07/29/24
h/o endocarditis
Hypertension
Hyperlipidemia
COPD
YUE 08/13/24: [facility] at [place] study, EF 65%, moderately dilated RV with mild RV hypokinesis, severely dilated LA with evidence of spontaneous echo contrast and definite MARIANELA thrombus, bioprosthetic mitral valve with marked thickening and
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
YUE 10/06/2024: EF 60 to 65%, severe concentric LVH, mildly dilated RV and mildly reduced RV systolic function, some spontaneous echo contrast seen in the left atrial cavity, but no left atrial appendage thrombus, bioprosthetic mitral valve with
significant thickening and calcification, restricted leaflet motion and the valve visually appears to have moderate to severe stenosis, mean mitral valve gradient 11 mmHg, moderate to severe MR with flow coming into the left atrial appendage, mild
to moderate aortic regurgitation, moderate TR
YUE 01/20/25: EF 55 to 60%, severe LVH, aortic sclerosis, mild to moderate AR, well-seated bioprosthetic valve in mitral position with mean mitral gradient 6 mmHg, no MR, again spontaneous echo contrast and possible thrombus in left atrial appendage
Echo 02/22/2025: EF 67% without obvious LVOT gradient, s/p TMVR with previous surgical MVR peak/mean 22/11 mmHg, no MR, mild to moderate aortic regurgitation, dilated RV with hypokinesis, severe TR with PAP 74 mmHg
Plan:
-Weight is up 2 lbs overnight and Lasix increased to 60 mg IV BID by me on 04/27/2025 AM. Previous dry weight in the last year has been as low as 149 lbs and patient currently weighs 159 lbs on my review of VS 04/27/2025.
-Patient was taking Lasix 60 mg PO BID prior to admission.
-EF was 67% by echo 02/22/2025
-Outpatient dose of Lopressor 25 mg BID has been continued
-Patient is not chronically on ELOINA/ARB/ARNI/SGLT2 inhibitor as her HF is primarily driven by HCM and valvular heart disease
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
-Patient also follows with Dr. Pat at [facility] for HCM and is chronically on Camzyos managed by their office. Patient's last acute HF admission in February seem to correlate with an up titration of her Camzyos to 10 mg daily, communication at that
time with Dr. Pat's office ended with the patient resuming her Camzyos at 10 mg daily and following up with their office.
-Patient has a history of paroxysmal atrial fibrillation and flutter. Patient had a PVI in 2022 and then had PVI and posterior wall ablation 03/16/2025. Patient has recurrent atrial flutter as seen on ECG 04/26/2025. Patient remains in atypical
atrial flutter on my review of telemetry 04/27/2025. Case reviewed with EP and plan is to start amiodarone which patient has previously tolerated and then proceed with YUE/CV on 04/29/2025.
-INR 1.97 on 04/27/2025, labs reviewed by me. Outpatient dose of warfarin increased from 2.5 mg daily up to 4 mg daily starting 04/27/2025. Daily INR is ordered. INR goal is 2-3. Outpatient INRs managed by cardiology office with draws at [facility].
-Patient was previously on DOAC, but this was stopped due to concern for echo contrast and thrombus, patient transition to warfarin.
HPI: Patient was admitted last week with recurrent RLE cellulitis and has been undergoing treatment, cardiology is now consulted for recurrent HF. Patient came to the ER back on 04/21/2025 with concerns for recurrent RLE cellulitis described as
pain erythema and swelling in the RLE. Patient had similar admission in February. Infectious diseases following along and on initial blood cultures drawn in the ER the patient grew Strep, but no growth in subsequent blood cultures. Wound cultures
growing Staph hemolyticus. Patient is currently on a regimen of Zyvox. Patient weighed 154 lbs on admission and weight is up to 157 lbs today. Patient has been requiring supplemental oxygen since admission and oxygen demands have increased as
high as 3 L NC at times.
Progress Note - Instructor Nurse
Subjective
Date of Service: April 27, 2025
Patient has increased LE edema and no improvement in SOB overnight
Objective
Labs:
04/26/25 07:42
04/27/25 07:06
Labs
Hgb 15.3 g/dL (12.0-16.0) 04/26/25 07:42
Hct 52.4 % (37.0-47.0) H 04/26/25 07:42
Plt Count 119 10^3/uL (130-400) L 04/26/25 07:42
PT 22.1 Sec (11.4-14.6) H 04/27/25 07:06
INR 1.97 04/27/25 07:06
APTT 41.3 Sec (23.4-35.0) H 04/21/25 12:23
Sodium 132 mmol/L (135-145) L 04/27/25 07:06
Potassium 3.9 mmol/L (3.5-5.1) 04/27/25 07:06
BUN 26 mg/dl (7-17) H 04/27/25 07:06
Creatinine 0.8 mg/dL (0.6-1.0) 04/27/25 07:06
Glucose 103 mg/dl (70-99) H 04/27/25 07:06
Vital Signs and I&O:
Vital Signs
Temp Pulse Resp BP Pulse Ox
97.8 F 103 20 130/74 96
04/27/25 08:02 04/27/25 08:57 04/27/25 08:02 04/27/25 08:57 04/27/25 08:02
Vital Signs
Temp Pulse Resp BP Pulse Ox
97.8 F 103 20 130/74 96
04/27/25 08:02 04/27/25 08:57 04/27/25 08:02 04/27/25 08:57 04/27/25 08:02
Intake & Output
04/25/25 04/26/25 04/27/25 04/28/25
06:59 06:59 06:59 06:59
Intake Total 840 / 840 960 / 960 960 / 960
Output Total 2950 / 2950
Balance 840 / 840 960 / 960 -1989 /
Physical Exam
Physical Exam
GEN: NAD, AAO x 3
LUNGS: 2 L NC. Bibasilar rales without wheeze
CV: Atypical atrial flutter on telemetry.
EXT: +2 right worse than left LE edema.
[2025-04-27 12:06] LABS: Glucose - Point of Care 104 mg/dl (70-99)
[2025-04-27 12:08] VITALS: BP 110/63
--- NOTE | 2025-04-27 12:32 | PN.DE.MGMTRT ---
Insulin Management
- -
04/27/2025: Diabetes Management Consult Follow up
79 year old female admitted on 04/21 with RLE cellulitis. PMH: A-Fib, CHF, COPD, GERD, HTN. Patient presented to ER with RLE redness and tightness. She was noted for Hyperglycemia, now with newly diagnosed T2DM. A1C 6.9%, Cr 0.8, eGFR >60.
Patient awake, alert, sitting up in chair, offers no complaints, able to discuss diabetes plan of care.
States she is not on diabetic meds at home and was not aware of diabetes Dx. She is interested and willing to follow instructions and change her diet at home.
Fasting glucose was 108 today. Currently receiving low corrective insulin with meals and Metformin 500mg BID.
Patient was seen by the IP Dietitian and the Diabetes Nurse Educator for diabetic diet counseling and glucose monitor instructions.
Discussed with Nurse.
Will cont to follow
Diabetes History
- -
Type of Diabetes: 2
Pre-Admission Diabetes Regimen
04/27/25
07:06
Creatinine 0.8
Lab Results
Hemoglobin A1c 6.9 % (4.0-5.9) H 04/23/25 08:35
Insulin Pump Settings
IP Diabetes Regimen
04/26/25 04/26/25 04/27/25
17:11 21:21 07:06
Glucose 103 H
POC Glucose 173 H 136 H
04/27/25 04/27/25
07:32 12:05
Glucose
POC Glucose 108 H 104 H
Patient Education
--- NOTE | 2025-04-27 12:48 | PTCARENOTE ---
04/27/2025 DIABETES EDUCATION CONSULT
At patient's request, reviewed using glucometer verbally and patient performed a successful repeat demonstration. She has office phone # if she has any future questions or concerns.
--- NOTE | 2025-04-27 13:52 | W.PN.HOSP.TC ---
Today's Communication/Plan
-
Assessment / Plan
Assessment / Plan
General: No Apparent Distress, Comfortable and Conversant
HEENT: NormoCephalic, Moist mucous membranes, Atraumatic
Respiratory: Clear and Non Labored Respirations
Cardiac: Irregular rhythm, heart rate 95
GI: Soft, Non Tender, Non Distended and Normal Bowel Sounds
Musculoskeletal: Bilateral lower extremity edema, right groin with wound dressing in place
: NO Bellamy
Neuro: Awake, Alert, Nonfocal/grossly intact
Psych: Calm and cooperative
Assessment:
RLE cellulitis, recurrent
- s/p multiple antibiotic courses
- cellulitis area demarcate in ER, continues improving today
- Antibiotic day 5. Discontinue Ancef and Vanco, transitioned to linezolid 600 mg p.o. twice daily through 05/04
- Wound culture growing staph hemolyticus sensitive only to vancomycin, blood cxs growing strep with sensitivities pending
- CT imaging with contrast shows no evidence of abscess, does show multiple inflamed sebaceous cysts
- ID following, recommendations appreciated
- elevate RLE as much as possible, warm compresses, local wound care
- Started diabetic medications for better blood glucose control which may be a factor with this recurrent infection
- Dermatology recommending outpatient evaluation
Acute on chronic HFpEF:
- Developed pulmonary edema and hypoxia, started on supplemental oxygen
- Newly edematous lower extremities
- Transitioned scheduled oral Lasix to 40 mg IV twice daily, now increased to 60 mg IV twice daily per cardiology recommendations
- Monitor I's and O's and daily weights, weight is up 2 kg since admission
- Continue fluid restriction
- Beta-blockade with metoprolol to tartrate 25 mg p.o. twice daily
Diabetes mellitus type 2:
- Hyperglycemic during this admission, multiple spot glucose checks greater than 200
- not on diabetic meds at home
- Hemoglobin A1c 6.9%
- Started low-dose metformin 500 mg twice daily, glucose now better controlled
- Will need to monitor INR closely considering potential interaction between metformin and warfarin
- Sliding scale insulin as needed
- Diabetic education
Acute respiratory failure with hypoxia:
- Secondary to pulmonary edema in the setting of acute on chronic HFpEF
- Continue supplemental oxygen as needed
- Treat underlying heart failure as outlined above
parox A. Fib
cardiomyopathy (HCM)
- continue Camzyos if able to bring in from home
- Is now back in A-fib with heart rate around 100
- continue BB with metoprolol tartrate 25 mg twice daily
- Checking echocardiogram not having cardiology discussing with EP regarding possible cardioversion or amiodarone initiation
- Would need YUE prior to cardioversion considering subtherapeutic INR
- INR subtherapeutic at 1.9, increasing warfarin dose to 5 mg nightly for now, suspect due to medication interaction after initiation of amiodarone
COPD
- continue Fluticasone/Salmeterol
- prn Nebs
GERD
Essential HTN
- continue BB
DVT ppx: Warfarin
Code: Full
Anticipated Discharge: > 48 hours
Subjective/Interval History
-
Date of Service: April 27, 2025
Patient was seen and examined at bedside this morning. Her lower extremity edema persists and she is still requiring low-flow nasal cannula. Her weight is up 2 kg since admission.
Objective Data
-
Labs:
Laboratory Results
04/27/25
07:06
PT 22.1 H
INR 1.97
Sodium 132 L
Potassium 3.9
Chloride 93 L
Carbon Dioxide 35 H
BUN 26 H
Creatinine 0.8
Glucose 103 H
Calcium 8.3 L
Vital Signs:
Vital Signs
Temp Pulse Resp BP Pulse Ox
97.8 F 96 18 110/63 94
04/27/25 12:08 04/27/25 12:08 04/27/25 12:08 04/27/25 12:08 04/27/25 12:08
I&O
04/26/25 04/27/25 04/28/25
06:59 06:59 06:59
Intake Total 960 / 960 960 / 960
Output Total 2950 / 2950
Balance 960 / 960 -1989 /
Review of Systems
-
History Source: Patient
All other systems: Reviewed and negative
Musculoskeletal: Reports Edema (Bilateral lower extremity edema)
Physical Exam
-
General: No Apparent Distress
--- NOTE | 2025-04-27 14:23 | W.PN.ID1 ---
Date of Service
Date of Service: April 27, 2025
Today's Communication
Continue linezolid.
Assessment / Plan
# Relapse vs recurrent RLE cellulitis, 3rd episode in 3 months. Continues to improve
# Right thigh abscesses-spontaneously drained
# Alpha strep bacteremia (1 of 2 sets) - contaminant
- posterior thigh wound cx swab: Staph haemolyticus = skin gerardo
- s/p Vanco/cefazolin
- Continue linezolid 600mg po bid through 05/04/25.
-avoid tyramine-rich foods while on linezolid.
# Acute on chronic CHF
- Diuresing
# Afib
# New onset DM
- Discussed importance of glycemic control
Chief Complaint
-: Cellulitis
Subjective / Review of Systems
No voiding a lot.
Vital Signs / Physical Exam
Vital Signs
Vital Signs
Temp Pulse Resp BP Pulse Ox
97.8 F 96 18 110/63 94
04/27/25 12:08 04/27/25 12:08 04/27/25 12:08 04/27/25 12:08 04/27/25 12:08
Physical Exam
Constitutional: No Acute Distress
Cardiovascular: Irregular Rate and S1/S2
Pulmonary: Rales
Gastrointestinal: Soft and Non Tender
Extremities: Edema (RLE> LLE) and Erythema (medial thigh erythema improving)
Neurological: AO x 3
Objective Data
Lab Data
Lab Results
04/26/25 07:42
04/27/25 07:06
PT 22.1 Sec (11.4-14.6) H 04/27/25 07:06
INR 1.97 04/27/25 07:06
APTT 41.3 Sec (23.4-35.0) H 04/21/25 12:23
Estimated Creat Clear 53 ml/min 04/27/25 07:06
Most recent labs reviewed.
Micro Results:
04/23/25 16:54 Blood Culture - Preliminary
Blood/Venous No Growth in 72 hours- Final report to follow
04/23/25 15:46 Blood Culture - Preliminary
Blood/Venous No Growth in 72 hours- Final report to follow
04/21/25 12:29 Blood Culture - Final
Blood/Venous No Growth - Final Report
04/21/25 12:23 Blood Culture - Preliminary
Blood/Venous Streptococcus species
Gram Stain - Preliminary
04/22/25 11:40 Wound Culture - Final
Leg - Right Staphylococcus haemolyticus
Gram Stain - Final
04/22/25 14:30 MRSA Screen - Final
Nose No Methicillin Resistant Staphylococcus aureus isolated.
peripheral vascular ultrasound on 04/21/25: no evidence of right lower extremity deep venous thrombosis.
[2025-04-27 15:10] VITALS: BP 131/82
[2025-04-27 17:11] LABS: Glucose - Point of Care 117 mg/dl (70-99)
[2025-04-27] MEDS: PACERONE 400 MG PO ×2 (17:12→22:06)
[2025-04-27] MEDS: VITAMIN C 1000 MG PO (17:12)
[2025-04-27] MEDS: COUMADIN 4 MG PO (17:19)
[2025-04-27 19:55] VITALS: BP 115/54
[2025-04-27 21:28] LABS: Glucose - Point of Care 134 mg/dl (70-99)
[2025-04-27 23:44] VITALS: BP 113/72
[2025-04-28] VITALS (8 sets, daily range): BP systolic 102–125; BP diastolic 61–69; PULSE 90–93; O2SAT 94–96; BMI 29.7
[2025-04-28] MEDS: ROXICODONE 5 MG PO ×3 (05:28→21:21)
--- NOTE | 2025-04-28 07:47 | PN.DE.MGMTRT ---
Insulin Management
- -
04/28/2025: Diabetes Management Consult Follow up
79 year old female admitted on 04/21 with RLE cellulitis. PMH: A-Fib, CHF, COPD, GERD, HTN. Patient presented to ER with RLE redness and tightness. She was noted for Hyperglycemia, now with newly diagnosed T2DM. A1C 6.9%, Cr 0.8, eGFR >60.
Patient awake, alert, sitting up in chair, offers no complaints, able to discuss diabetes plan of care. Per nurse patient for possible cardioversion tomorrow.
She is interested and willing to follow instructions and change her diet at home.
Fasting glucose today 91. Glucose range yesterday 104 to 134, required no correction insulin. Currently receiving and Metformin 500mg BID low corrective insulin with meals.
Patient was seen by the IP Dietitian and the Diabetes Nurse Educator for diabetic diet counseling and glucose monitor instructions.
Discussed with Nurse.
Will cont to follow
Diabetes History
- -
Type of Diabetes: 2
Pre-Admission Diabetes Regimen
04/27/25
07:06
Creatinine 0.8
Lab Results
Hemoglobin A1c 6.9 % (4.0-5.9) H 04/23/25 08:35
Insulin Pump Settings
IP Diabetes Regimen
04/27/25 04/27/25 04/27/25
07:06 12:05 17:10
Glucose 103 H
POC Glucose 104 H 117 H
04/27/25
21:24
Glucose
POC Glucose 134 H
Patient Education
[2025-04-28] MEDS: ADVAIR HFA 115/21 MCG INHALER 2 PUFF INH ×2 (07:56→19:59)
[2025-04-28 08:25] LABS: Glucose - Point of Care 91 mg/dl (70-99)
[2025-04-28 08:33] LABS: INR 2.37; PT 25.5 Sec (11.4-14.6)
[2025-04-28] MEDS: NOVOLOG FLEXPEN-LOW RESISTANCE SC ×3 (08:38→16:59)
[2025-04-28] MEDS: LASIX 60 MG IV (09:20)
[2025-04-28] MEDS: NEURONTIN 300 MG PO ×2 (09:20→20:59)
[2025-04-28] MEDS: LIPITOR 20 MG PO (09:20)
[2025-04-28] MEDS: LOPRESSOR 25 MG PO ×2 (09:21→21:00)
[2025-04-28] MEDS: ZYVOX 600 MG PO ×2 (09:21→20:59)
[2025-04-28] MEDS: ASPIR LOW (ENTERIC COATED) 81 MG PO (09:21)
[2025-04-28] MEDS: GLUCOPHAGE 500 MG PO ×2 (09:21→17:07)
[2025-04-28] MEDS: PACERONE 400 MG PO ×3 (09:21→21:00)
[2025-04-28] MEDS: SENOKOT-S 1 TABLET PO (09:23)
[2025-04-28 09:24] LABS: Blood Urea Nitrogen 26 mg/dl (7-17); Calcium 8.2 mg/dl (8.4-10.2); Carbon Dioxide 36 mmol/L (22-30); Chloride 87 mmol/L (98-107); Estimated Creatinine Clearance 47 ml/min; Glucose 90 mg/dl (70-99); Potassium 4.1 mmol/L (3.5-5.1); Sodium 130 mmol/L (135-145); eGFR > 60.00
[2025-04-28] MEDS: MIRALAX 17 GRAMS PO (09:24)
--- NOTE | 2025-04-28 09:54 | W.PN.CARDCBS ---
Addendum entered and electronically signed by Maximus Christopher MD 04/28/25 15:23:
I saw and examined the patient.
The Activities Attendant's note was reviewed and I agree with the note.
Comment: Briefly, 79-year-old woman past medical history of hypertrophic cardiomyopathy, heart failure with preserved ejection fraction, mitral valve repair, persistent atrial fibrillation/flutter who presented in acute decompensated heart failure.
Still appears volume overloaded on exam
Prior dry weight closer to 150 pounds. Today weighing 157 pounds on standing scale.
Will continue IV Lasix. Has not responded well to current dosing. Plan to increase to 80 mg twice daily.
Remains in atrial fibrillation despite recent PVI.
Amiodarone has been added
Metoprolol for rate control
Warfarin anticoagulation with most recent INR 2.37 which is at goal.
Tentative plan for YUE/direct-current cardioversion tomorrow to restore sinus rhythm
Original Note:
Today's Communication / Plan
-
YUE/CV tomorrow
Recheck ECG, QTc was 531 ms on 04/26/2025 then patient started amiodarone on 04/27/2025 and QTc is 525 ms I will recheck ECG 04/28/2025
Impression / Plan
-
PCP: Antonieta Clark MD
CDY: Yahaira Evans MD locally and Dr. Pat at [facility] ([phone])
Assessment:
Patient admitted with RLE cellulitis 04/21/2025
Recent admission for PVI and posterior wall ablation 03/16/2025
Recent admission for RLE cellulitis 03/04/2025 until 03/09/2025
Recent admission for acute HF 02/22/2025 until 02/26/2025
Recurrent RLE cellulitis
Acute on chronic HFpEF
Mitral valve disease
s/p bioprosthetic mitral valve replacement 2014
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
Spontaneous echo contrast in the left atrium and definite thrombus in the MARIANELA by YUE 08/13/2024
No longer evidence of MARIANELA thrombus on repeat YUE 10/06/2024
Spontaneous echo to contrast again in the LA with concern for possible MARIANELA thrombus by YUE 01/20/2025
Eliquis transitioned to warfarin for LA smoke by YUE 08/13/24
Paroxysmal atrial fibrillation and atypical atrial flutter
s/p PVI 04/2023
planned for repeat PVI with PFA 03/16/25
Recurrent atrial flutter noted on ECG 04/26/2025
HCM, severe concentric LVH, on Camzyos, dosing changes managed at [facility]
PHTN
s/p RHC at [facility] 12/2023
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
Mild , peak to peak gradient 11 mmHg by cath at [facility] 07/29/24
h/o endocarditis
Hypertension
Hyperlipidemia
COPD
YUE 08/13/24: [facility] at [place] study, EF 65%, moderately dilated RV with mild RV hypokinesis, severely dilated LA with evidence of spontaneous echo contrast and definite MARIANELA thrombus, bioprosthetic mitral valve with marked thickening and
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
YUE 10/06/2024: EF 60 to 65%, severe concentric LVH, mildly dilated RV and mildly reduced RV systolic function, some spontaneous echo contrast seen in the left atrial cavity, but no left atrial appendage thrombus, bioprosthetic mitral valve with
significant thickening and calcification, restricted leaflet motion and the valve visually appears to have moderate to severe stenosis, mean mitral valve gradient 11 mmHg, moderate to severe MR with flow coming into the left atrial appendage, mild
to moderate aortic regurgitation, moderate TR
YUE 01/20/25: EF 55 to 60%, severe LVH, aortic sclerosis, mild to moderate AR, well-seated bioprosthetic valve in mitral position with mean mitral gradient 6 mmHg, no MR, again spontaneous echo contrast and possible thrombus in left atrial appendage
Echo 02/22/2025: EF 67% without obvious LVOT gradient, s/p TMVR with previous surgical MVR peak/mean 22/11 mmHg, no MR, mild to moderate aortic regurgitation, dilated RV with hypokinesis, severe TR with PAP 74 mmHg
Plan:
-Weight is down 2 lbs overnight following increased dose of Lasix up to 60 mg IV BID starting 04/27/2025 AM. Will increase Lasix again to 80 mg IV BID starting 04/28/2025 PM
-Previous dry weight in the last year has been as low as 149 lbs and patient currently weighs 157 lbs on my review of VS 04/28/2025.
-Patient was taking Lasix 60 mg PO BID prior to admission.
-EF was 67% by echo 02/22/2025
-Outpatient dose of Lopressor 25 mg BID has been continued
-Patient is not chronically on ELOINA/ARB/ARNI/SGLT2 inhibitor as her HF is primarily driven by HCM and valvular heart disease
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
-Patient also follows with Dr. Pat at [facility] for HCM and is chronically on Camzyos managed by their office. Patient's last acute HF admission in February seem to correlate with an up titration of her Camzyos to 10 mg daily, communication at that
time with Dr. Pat's office ended with the patient resuming her Camzyos at 10 mg daily and following up with their office.
-Patient has a history of paroxysmal atrial fibrillation and flutter. Patient had a PVI in 2022 and then had PVI and posterior wall ablation 03/16/2025. Patient has recurrent atrial flutter as seen on ECG 04/26/2025. Patient remains in atypical
atrial flutter on my review of telemetry 04/27/2025.
-Amiodarone 400 mg TID started on 04/27/2025. ECG from 04/28/2025 reviewed by me shows atrial fibrillation with a QTc of 525 ms in the setting of A-fib. When I compared this to previous ECG from 04/26/2025 the patient's QTc was 531 ms without
amiodarone on board. Recheck ECG in a.m., orders placed by me.
-YUE/CV on 04/29/2025. Orders placed by me and patient added to the schedule.
-INR 2.37 on 04/28/2025, labs reviewed by me. Warfarin 2.5 mg ordered for 04/28/2025, this was her outpatient dose as well. Daily INR is ordered. INR goal is 2-3. Outpatient INRs managed by cardiology office with draws at [facility].
-Patient was previously on DOAC, but this was stopped due to concern for echo contrast and thrombus, patient transition to warfarin.
HPI: Patient was admitted last week with recurrent RLE cellulitis and has been undergoing treatment, cardiology is now consulted for recurrent HF. Patient came to the ER back on 04/21/2025 with concerns for recurrent RLE cellulitis described as
pain erythema and swelling in the RLE. Patient had similar admission in February. Infectious diseases following along and on initial blood cultures drawn in the ER the patient grew Strep, but no growth in subsequent blood cultures. Wound cultures
growing Staph hemolyticus. Patient is currently on a regimen of Zyvox. Patient weighed 154 lbs on admission and weight is up to 157 lbs today. Patient has been requiring supplemental oxygen since admission and oxygen demands have increased as
high as 3 L NC at times.
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
Subjective
Date of Service: April 28, 2025
Patient says that she feels tired today and less lively, denies any pain or palpitations
Objective
Labs:
04/26/25 07:42
04/28/25 07:32
Labs
Hgb 15.3 g/dL (12.0-16.0) 04/26/25 07:42
Hct 52.4 % (37.0-47.0) H 04/26/25 07:42
Plt Count 119 10^3/uL (130-400) L 04/26/25 07:42
PT 25.5 Sec (11.4-14.6) H 04/28/25 07:32
INR 2.37 04/28/25 07:32
APTT 41.3 Sec (23.4-35.0) H 04/21/25 12:23
Sodium 130 mmol/L (135-145) L 04/28/25 07:32
Potassium 4.1 mmol/L (3.5-5.1) 04/28/25 07:32
BUN 26 mg/dl (7-17) H 04/28/25 07:32
Creatinine 0.9 mg/dL (0.6-1.0) 04/28/25 07:32
Glucose 90 mg/dl (70-99) 04/28/25 07:32
Vital Signs and I&O:
Vital Signs
Temp Pulse Resp BP Pulse Ox
97.9 F 95 16 153/91 95
04/28/25 07:53 04/28/25 09:20 04/28/25 08:05 04/28/25 09:20 04/28/25 08:05
Vital Signs
Temp Pulse Resp BP Pulse Ox
97.9 F 95 16 153/91 95
04/28/25 07:53 04/28/25 09:20 04/28/25 08:05 04/28/25 09:20 04/28/25 08:05
Intake & Output
04/26/25 04/27/25 04/28/25 04/29/25
06:59 06:59 06:59 06:59
Intake Total 960 / 960 960 / 960 720 / 720
Output Total 2950 / 2950
Balance 960 / 960 -1989 / 720 / 720
Physical Exam
Physical Exam
GEN: NAD, AAO x 3
LUNGS: 2 L NC. Bibasilar rales without wheeze
CV: Atypical atrial flutter on telemetry.
EXT: +2 right worse than left LE edema.
[2025-04-28 11:25] LABS: Glucose - Point of Care 126 mg/dl (70-99)
--- NOTE | 2025-04-28 11:47 | W.PN.ID1 ---
Date of Service
Date of Service: April 28, 2025
Today's Communication
Continue linezolid.
Assessment / Plan
# Relapse vs recurrent RLE cellulitis, 3rd episode in 3 months. Continues to improve
# Right thigh abscesses-spontaneously drained
# Alpha strep bacteremia (1 of 2 sets) - contaminant
- posterior thigh wound cx swab: Staph haemolyticus = skin gerardo
- s/p Vanco/cefazolin
- Continue linezolid 600mg po bid through 05/04/25.
-avoid tyramine-rich foods while on linezolid.
# Acute on chronic CHF
- Diuresing
- Elevate BLE
# Afib
# New onset DM
Chief Complaint
-: Cellulitis
Subjective / Review of Systems
Feels OK.
Vital Signs / Physical Exam
Vital Signs
Vital Signs
Temp Pulse Resp BP Pulse Ox
97.9 F 82 18 105/67 92
04/28/25 11:31 04/28/25 11:31 04/28/25 11:31 04/28/25 11:31 04/28/25 11:31
Physical Exam
Constitutional: No Acute Distress
Cardiovascular: Irregular Rate and S1/S2
Pulmonary: Rales
Gastrointestinal: Soft and Non Tender
Extremities: Edema (RLE> LLE) and Erythema (Dependent erythema RLE)
Neurological: AO x 3
Objective Data
Lab Data
Lab Results
04/26/25 07:42
04/28/25 07:32
PT 25.5 Sec (11.4-14.6) H 04/28/25 07:32
INR 2.37 04/28/25 07:32
APTT 41.3 Sec (23.4-35.0) H 04/21/25 12:23
Estimated Creat Clear 47 ml/min 04/28/25 07:32
Most recent labs reviewed.
Micro Results:
04/23/25 16:54 Blood Culture - Preliminary
Blood/Venous No Growth in 4 days- Final report to follow
04/23/25 15:46 Blood Culture - Preliminary
Blood/Venous No Growth in 4 days- Final report to follow
04/21/25 12:29 Blood Culture - Final
Blood/Venous No Growth - Final Report
04/21/25 12:23 Blood Culture - Preliminary
Blood/Venous Streptococcus species
Gram Stain - Preliminary
04/22/25 11:40 Wound Culture - Final
Leg - Right Staphylococcus haemolyticus
Gram Stain - Final
04/22/25 14:30 MRSA Screen - Final
Nose No Methicillin Resistant Staphylococcus aureus isolated.
peripheral vascular ultrasound on 04/21/25: no evidence of right lower extremity deep venous thrombosis.
--- NOTE | 2025-04-28 13:51 | W.PN.HOSP.TC ---
Today's Communication/Plan
-
Assessment / Plan
Assessment / Plan
General: No Apparent Distress, Comfortable and Conversant
HEENT: NormoCephalic, Moist mucous membranes, Atraumatic
Respiratory: Clear and Non Labored Respirations
Cardiac: Irregular rhythm, heart rate 95
GI: Soft, Non Tender, Non Distended and Normal Bowel Sounds
Musculoskeletal: Bilateral lower extremity edema R<L, right groin with wound dressing in place
: NO Bellamy
Neuro: Awake, Alert, Nonfocal/grossly intact
Psych: Calm and cooperative
Assessment:
RLE cellulitis, recurrent
- s/p multiple antibiotic courses
- cellulitis area demarcate in ER, continues improving today
- Discontinued Ancef and Vanco, transitioned to linezolid 600 mg p.o. twice daily through 05/04
- Wound culture growing staph hemolyticus sensitive only to vancomycin, blood cxs growing strep with sensitivities pending
- CT imaging with contrast shows no evidence of abscess, does show multiple inflamed sebaceous cysts
- ID following, recommendations appreciated
- elevate RLE as much as possible, warm compresses, local wound care
- Started diabetic medications for better blood glucose control which may be a factor with this recurrent infection
- Dermatology recommending outpatient evaluation
Acute on chronic HFpEF:
- Developed pulmonary edema and hypoxia, started on supplemental oxygen, edematous lower extremities
- Possibly due to A-fib with RVR
- Increased Lasix to 60 mg IV twice daily
- Monitor I's and O's and daily weights, weight since admission 70 kg => 71.3 kg => 71.2 kg
- Continue fluid restriction
- Beta-blockade with metoprolol to tartrate 25 mg p.o. twice daily
- Uses Camzyos for hypertrophic cardiomyopathy, however has been unable to have anyone bring her home medication
parox A. Fib
- Is now back in A-fib with heart rate around 100
- continue BB with metoprolol tartrate 25 mg twice daily
- Cardiology/EP started amiodarone for 100 mg p.o. 3 times daily, will need to monitor INR closely considering amiodarone interaction with warfarin
- Tentatively planning YUE/cardioversion tomorrow 04/29
- INR was subtherapeutic at 1.9, increased warfarin dose to 4 mg, INR now 2.3, will continue home dose of 2.5 mg nightly for now considering possible interaction with amiodarone, INR goal 2-3
Diabetes mellitus type 2:
- Hyperglycemic during this admission, multiple spot glucose checks greater than 200
- not on diabetic meds at home
- Hemoglobin A1c 6.9%
- Started low-dose metformin 500 mg twice daily, glucose now better controlled
- Will need to monitor INR closely considering potential interaction between metformin and warfarin
- Sliding scale insulin as needed
- Diabetic education
Acute respiratory failure with hypoxia:
- Secondary to pulmonary edema in the setting of acute on chronic HFpEF
- Continue supplemental oxygen as needed
- Treat underlying heart failure as outlined above
COPD
- continue Fluticasone/Salmeterol
- prn Nebs
GERD
Essential HTN
- continue BB
DVT ppx: Warfarin
Code: Full
Anticipated Discharge: > 48 hours
Subjective/Interval History
-
Date of Service: April 28, 2025
Patient was seen and examined at bedside this morning. Continues diuresing although weight remains about the same today.
Objective Data
-
Labs:
Laboratory Results
04/28/25
07:32
PT 25.5 H
INR 2.37
Sodium 130 L
Potassium 4.1
Chloride 87 L
Carbon Dioxide 36 H
BUN 26 H
Creatinine 0.9
Glucose 90
Calcium 8.2 L
Vital Signs:
Vital Signs
Temp Pulse Resp BP Pulse Ox
97.9 F 82 18 105/67 92
04/28/25 11:31 04/28/25 11:31 04/28/25 11:31 04/28/25 11:31 04/28/25 11:31
I&O
04/27/25 04/28/25 04/29/25
06:59 06:59 06:59
Intake Total 960 / 960 720 / 720
Output Total 2950 / 2950
Balance -1989 / -1989 720 / 720
Review of Systems
-
History Source: Patient
All other systems: Reviewed and negative
Musculoskeletal: Reports Edema
Skin: Reports Sores
Physical Exam
-
General: No Apparent Distress
[2025-04-28] MEDS: LASIX 80 MG IV (15:36)
[2025-04-28 16:55] LABS: Glucose - Point of Care 122 mg/dl (70-99)
[2025-04-28] MEDS: VITAMIN C 1000 MG PO (17:07)
[2025-04-28] MEDS: COUMADIN 2.5 MG PO (17:09)
[2025-04-28 21:43] LABS: Glucose - Point of Care 148 mg/dl (70-99)
[2025-04-29] VITALS (7 sets, daily range): BP systolic 95–126; BP diastolic 52–73; PULSE 73; O2SAT 93; BMI 29.4
[2025-04-29 06:24] LABS: Glucose - Point of Care 109 mg/dl (70-99)
[2025-04-29] MEDS: ADVAIR HFA 115/21 MCG INHALER 2 PUFF INH ×2 (07:18→21:18)
--- NOTE | 2025-04-29 07:53 | PN.DE.MGMTRT ---
Insulin Management
- -
04/29/2025: Diabetes Management Follow up
79 year old female admitted on 04/21 with RLE cellulitis. PMH: A-Fib, CHF, COPD, GERD, HTN. Patient presented to ER with RLE redness and tightness. She was noted for Hyperglycemia, now with newly diagnosed T2DM. A1C 6.9%, Cr 0.8, eGFR >60. She is
interested and willing to follow instructions and change her diet at home.
Patient awake, alert, sitting up in bed, offers no complaints, able to discuss diabetes plan of care.
per nurse patient for cardioversion today, has been NPO since CT.
Glucose range yesterday 91 to 126, required no correction insulin. Fasting glucose today 109 V.
Currently receiving Metformin 500mg BID and low corrective insulin with meals. Will cont same without changes
Patient was seen by the IP Dietitian and the Diabetes Nurse Educator for diabetic diet counseling and glucose monitor instructions.
Discussed with Nurse. Will cont to follow
Diabetes History
- -
Type of Diabetes: 2
Pre-Admission Diabetes Regimen
04/28/25
07:32
Creatinine 0.9
Lab Results
Hemoglobin A1c 6.9 % (4.0-5.9) H 04/23/25 08:35
Insulin Pump Settings
IP Diabetes Regimen
04/28/25 04/28/25 04/28/25
07:32 08:23 11:23
Glucose 90
POC Glucose 91 126 H
04/28/25 04/28/25 04/29/25
16:48 21:41 06:23
Glucose
POC Glucose 122 H 148 H 109 H
Meal type: Dinner
Meal type: Lunch
Meal type: Breakfast
Amount consumed: 90%
Amount consumed: 100%
Amount consumed: 100%
Patient Education
[2025-04-29] MEDS: NOVOLOG FLEXPEN-LOW RESISTANCE SC (07:58)
[2025-04-29] MEDS: ASPIR LOW (ENTERIC COATED) 81 MG PO (08:08)
[2025-04-29] MEDS: NEURONTIN 300 MG PO ×2 (08:08→20:18)
[2025-04-29] MEDS: GLUCOPHAGE 500 MG PO ×2 (08:08→17:36)
[2025-04-29] MEDS: PACERONE 400 MG PO (08:08)
[2025-04-29] MEDS: LIPITOR 20 MG PO (08:09)
[2025-04-29] MEDS: ZYVOX 600 MG PO ×2 (08:09→20:18)
[2025-04-29] MEDS: LOPRESSOR 25 MG PO ×2 (08:09→20:18)
[2025-04-29] MEDS: LASIX 80 MG IV ×2 (08:09→17:35)
[2025-04-29 08:28] LABS: INR 2.71; PT 29.0 Sec (11.4-14.6)
[2025-04-29 08:39] LABS: Hematocrit 47.9 % (37.0-47.0); Hemoglobin 14.3 g/dL (12.0-16.0); Mean Corp Hgb Conc. 29.9 g/dL (33.0-37.0); Mean Corpuscular Volume 92.5 fL (81.0-99.0); Nucleated Red Blood Cells % 0 %; Platelet Count 142 10^3/uL (130-400); Red Cell Dist. Width 19.3 % (11.5-14.5)
[2025-04-29 08:59] LABS: Blood Urea Nitrogen 28 mg/dl (7-17); Calcium 8.4 mg/dl (8.4-10.2); Carbon Dioxide 36 mmol/L (22-30); Chloride 88 mmol/L (98-107); Estimated Creatinine Clearance 42 ml/min; Glucose 98 mg/dl (70-99); Magnesium 2.6 mg/dl (1.6-2.3); Potassium 4.3 mmol/L (3.5-5.1); Sodium 132 mmol/L (135-145); eGFR 57.66
[2025-04-29 11:43] LABS: Glucose - Point of Care 92 mg/dl (70-99)
--- NOTE | 2025-04-29 14:31 | W.PN.ID1 ---
Date of Service
Date of Service: April 29, 2025
Today's Communication
Continue linezolid 600mg po bid through 05/04/25.
Assessment / Plan
# Relapse vs recurrent RLE cellulitis, 3rd episode in 3 months. Continues to improve/resolve
# Right thigh abscesses-spontaneously drained
# Alpha strep bacteremia (1 of 2 sets) - contaminant
- posterior thigh wound cx swab: Staph haemolyticus = skin gerardo
- s/p Vanco/cefazolin
- Continue linezolid 600mg po bid through 05/04/25.
CBC stable.
-avoid tyramine-rich foods while on linezolid.
# Acute on chronic CHF
- Diuresing
- Elevate BLE
# Afib
# New onset DM
Chief Complaint
-: Cellulitis
Subjective / Review of Systems
Edema better.
Vital Signs / Physical Exam
Vital Signs
Vital Signs
Temp Pulse Resp BP Pulse Ox
98.1 F 79 18 121/73 93
04/29/25 11:40 04/29/25 11:40 04/29/25 11:40 04/29/25 11:40 04/29/25 11:40
Physical Exam
Constitutional: No Acute Distress
Cardiovascular: Irregular Rate and S1/S2
Gastrointestinal: Soft and Non Tender
Extremities: Edema (BLE edema decreasing) and Erythema (Dependent erythema RLE)
Neurological: AO x 3
Objective Data
Lab Data
Lab Results
04/29/25 07:58
04/29/25 07:58
PT 29.0 Sec (11.4-14.6) H 04/29/25 07:58
INR 2.71 04/29/25 07:58
APTT 41.3 Sec (23.4-35.0) H 04/21/25 12:23
Estimated Creat Clear 42 ml/min 04/29/25 07:58
Most recent labs reviewed.
Micro Results:
04/23/25 16:54 Blood Culture - Final
Blood/Venous No Growth - Final Report
04/23/25 15:46 Blood Culture - Final
Blood/Venous No Growth - Final Report
04/21/25 12:23 Blood Culture - Final
Blood/Venous Streptococcus species
Gram Stain - Final
04/21/25 12:29 Blood Culture - Final
Blood/Venous No Growth - Final Report
04/22/25 11:40 Wound Culture - Final
Leg - Right Staphylococcus haemolyticus
Gram Stain - Final
04/22/25 14:30 MRSA Screen - Final
Nose No Methicillin Resistant Staphylococcus aureus isolated.
peripheral vascular ultrasound on 04/21/25: no evidence of right lower extremity deep venous thrombosis.
--- NOTE | 2025-04-29 14:34 | WOUNDNOTE ---
RIGHT UPPER THIGH
--- NOTE | 2025-04-29 14:35 | WOUNDNOTE ---
RIGHT LATERAL THIGH
--- NOTE | 2025-04-29 14:35 | WOUNDNOTE ---
RIGHT POSTERIOR THIGH 1945, [id number]
--- NOTE | 2025-04-29 14:37 | WOUNDNOTE ---
[facility] RN NOTE: Met with patient to follow up on on right thigh wounds. Patient continues with multiple inflamed sebaceous cysts. Cysts on right anterior thigh are now open with some serosanguineous drainage. Posterior right thigh wound appears to be
progressing toward healing. Reddened areas noted on right lateral leg, Dr. Jensen aware. Will change orders to use Mesalt to draining areas PRN, as this likely will be more gently removed than alginate. Continue to clean with Vashe at each
dressing change. Patient declined to stand for sacral assessment. Air cushion in chair. Will continue to follow during in-patient stay.
--- NOTE | 2025-04-29 14:41 | W.PN.CARDCBS ---
Today's Communication / Plan
-
Continue IV Lasix
Metolazone 2.5mg x 1
Impression / Plan
-
PCP: Antonieta Clark MD
CDY: Yahaira Evans MD locally and Dr. Pat at [facility] ([phone])
Assessment:
Patient admitted with RLE cellulitis 04/21/2025
Recent admission for PVI and posterior wall ablation 03/16/2025
Recent admission for RLE cellulitis 03/04/2025 until 03/09/2025
Recent admission for acute HF 02/22/2025 until 02/26/2025
Recurrent RLE cellulitis
Acute on chronic HFpEF
Mitral valve disease
s/p bioprosthetic mitral valve replacement 2014
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
Spontaneous echo contrast in the left atrium and definite thrombus in the MARIANELA by YUE 08/13/2024
No longer evidence of MARIANELA thrombus on repeat YUE 10/06/2024
Spontaneous echo to contrast again in the LA with concern for possible MARIANELA thrombus by YUE 01/20/2025
Eliquis transitioned to warfarin for LA smoke by YUE 08/13/24
Paroxysmal atrial fibrillation and atypical atrial flutter
s/p PVI 04/2023
planned for repeat PVI with PFA 03/16/25
Recurrent atrial flutter noted on ECG 04/26/2025
HCM, severe concentric LVH, on Camzyos, dosing changes managed at [facility]
PHTN
s/p RHC at [facility] 12/2023
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
Mild , peak to peak gradient 11 mmHg by cath at [facility] 07/29/24
h/o endocarditis
Hypertension
Hyperlipidemia
COPD
YUE 08/13/24: [facility] at [place] study, EF 65%, moderately dilated RV with mild RV hypokinesis, severely dilated LA with evidence of spontaneous echo contrast and definite MARIANELA thrombus, bioprosthetic mitral valve with marked thickening and
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
YUE 10/06/2024: EF 60 to 65%, severe concentric LVH, mildly dilated RV and mildly reduced RV systolic function, some spontaneous echo contrast seen in the left atrial cavity, but no left atrial appendage thrombus, bioprosthetic mitral valve with
significant thickening and calcification, restricted leaflet motion and the valve visually appears to have moderate to severe stenosis, mean mitral valve gradient 11 mmHg, moderate to severe MR with flow coming into the left atrial appendage, mild
to moderate aortic regurgitation, moderate TR
YUE 01/20/25: EF 55 to 60%, severe LVH, aortic sclerosis, mild to moderate AR, well-seated bioprosthetic valve in mitral position with mean mitral gradient 6 mmHg, no MR, again spontaneous echo contrast and possible thrombus in left atrial appendage
Echo 02/22/2025: EF 67% without obvious LVOT gradient, s/p TMVR with previous surgical MVR peak/mean 22/11 mmHg, no MR, mild to moderate aortic regurgitation, dilated RV with hypokinesis, severe TR with PAP 74 mmHg
Plan:
#HFpEF
-Weight has plateaued but still requiring supplemental oxygen and appears volume overloaded on exam
-Continue higher dose of IV Lasix 80 mg BID
-Will add one-time dose of Zaroxolyn 2.5 mg and assess the response
-Follow daily standing weights, renal function/electrolytes and wean oxygen as able
#AFib/Flutter
-YUE/direct-current cardioversion was attempted earlier today however left atrial appendage thrombus was identified and cardioversion was not performed
-Warfarin for INR goal is 2-3. Outpatient INRs managed by cardiology office with draws at [facility].
-Continue outpatient dose of Lopressor 25 mg BID for rate control
-Will discontinue amiodarone given present of left atrial appendage thrombus
#HCM
-Patient also follows with Dr. Pat at [facility] for HCM and is chronically on Camzyos managed by their office. Patient's last acute HF admission in February seem to correlate with an up titration of her Camzyos to 10 mg daily, communication at that
time with Dr. Pat's office ended with the patient resuming her Camzyos at 10 mg daily and following up with their office.
HPI: Patient was admitted last week with recurrent RLE cellulitis and has been undergoing treatment, cardiology is now consulted for recurrent HF. Patient came to the ER back on 04/21/2025 with concerns for recurrent RLE cellulitis described as
pain erythema and swelling in the RLE. Patient had similar admission in February. Infectious diseases following along and on initial blood cultures drawn in the ER the patient grew Strep, but no growth in subsequent blood cultures. Wound cultures
growing Staph hemolyticus. Patient is currently on a regimen of Zyvox. Patient weighed 154 lbs on admission and weight is up to 157 lbs today. Patient has been requiring supplemental oxygen since admission and oxygen demands have increased as
high as 3 L NC at times.
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
Subjective
Date of Service: April 29, 2025
No acute overnight events. Patient continues with lower extremity edema. Still requiring supplemental oxygen. Seems frustrated by lack of progress with diuresis.
YUE/DCCV be was attempted earlier today but not performed due to left atrial appendage thrombus.
Objective
Labs:
04/29/25 07:58
04/29/25 07:58
Labs
Hgb 14.3 g/dL (12.0-16.0) 04/29/25 07:58
Hct 47.9 % (37.0-47.0) H 04/29/25 07:58
Plt Count 142 10^3/uL (130-400) 04/29/25 07:58
PT 29.0 Sec (11.4-14.6) H 04/29/25 07:58
INR 2.71 04/29/25 07:58
APTT 41.3 Sec (23.4-35.0) H 04/21/25 12:23
Sodium 132 mmol/L (135-145) L 04/29/25 07:58
Potassium 4.3 mmol/L (3.5-5.1) 04/29/25 07:58
BUN 28 mg/dl (7-17) H 04/29/25 07:58
Creatinine 1.0 mg/dL (0.6-1.0) 04/29/25 07:58
Glucose 98 mg/dl (70-99) 04/29/25 07:58
Vital Signs and I&O:
Vital Signs
Temp Pulse Resp BP Pulse Ox
98.1 F 79 18 121/73 93
04/29/25 11:40 04/29/25 11:40 04/29/25 11:40 04/29/25 11:40 04/29/25 11:40
Vital Signs
Temp Pulse Resp BP Pulse Ox
98.1 F 79 18 121/73 93
04/29/25 11:40 04/29/25 11:40 04/29/25 11:40 04/29/25 11:40 04/29/25 11:40
Intake & Output
04/27/25 04/28/25 04/29/25 04/30/25
06:59 06:59 06:59 06:59
Intake Total 960 / 960 720 / 720 1140 / 1140
Output Total 2950 / 2950 2100 / 2099
Balance -1989 / 720 / 720 -960 / -960
Physical Exam
Physical Exam
Gen: NAD, AAOx3
HEENT: NC/AT, sclera anicteric
CV: Irregular
Lungs: On 2L NC
Abd: S/ND
Ext: 1-2 pitting LE edema
Skin: Warm, dry
Neuro: Non-focal
[2025-04-29] MEDS: ZAROXOLYN 2.5 MG PO (15:14)
--- NOTE | 2025-04-29 16:02 | CM ---
Chart reviewed. Cont IV Lasix
Cont O2 need- 2L at this time. Will cont to watch for O2 needs
Therapy cont to recommend home PT/OT. CM will discuss w/ patient prior to discharge
Plan: Home w/ home care
--- NOTE | 2025-04-29 16:05 | W.PN.HOSP.TC ---
Today's Communication/Plan
-
Assessment / Plan
Assessment / Plan
General: No Apparent Distress, Comfortable and Conversant
HEENT: NormoCephalic, Moist mucous membranes, Atraumatic
Respiratory: Clear and Non Labored Respirations
Cardiac: Irregular rhythm, heart rate 80
GI: Soft, Non Tender, Non Distended and Normal Bowel Sounds
Musculoskeletal: Bilateral lower extremity edema R<L, right groin with wound dressing in place
: NO Bellamy
Neuro: Awake, Alert, Nonfocal/grossly intact
Psych: Calm and cooperative
Assessment:
RLE cellulitis, recurrent
- s/p multiple antibiotic courses
- Cyst in right groin draining appropriately, surrounding erythema improving
- Continuing antibiotics with linezolid 600 mg p.o. twice daily through 05/04, appreciate ID guidance
- Wound culture growing staph hemolyticus sensitive only to vancomycin, blood cxs growing strep with sensitivities pending
- Continue local wound care
- Started diabetic medications for better blood glucose control which may be a factor with this recurrent infection
- Dermatology recommending outpatient evaluation
Acute on chronic HFpEF:
- Developed pulmonary edema and hypoxia, started on supplemental oxygen, edematous lower extremities
- Possibly due to A-fib with RVR
- Increased Lasix to 80 mg IV twice daily, given 1 dose of metolazone, will monitor for improvement
- Monitor I's and O's and daily weights, weight since admission 70 kg => 71.3 kg => 71.2 kg => 70.5 kg
- Continue fluid restriction
- Beta-blockade with metoprolol to tartrate 25 mg p.o. twice daily
- Uses Camzyos for hypertrophic cardiomyopathy, however has been unable to have anyone bring her home medication
parox A. Fib
- Now back in A-fib, heart rate now improved to around 80
- Had plan for YUE/cardioversion today 04/29, however MARIANELA thrombus was identified and so cardioversion was aborted
- Discontinuing amiodarone load considering MARIANELA thrombus noted on YUE today 04/29
- Continue BB with metoprolol tartrate 25 mg twice daily
- Will need to monitor INR closely considering amiodarone interaction with warfarin
- Tentatively planning YUE/cardioversion tomorrow 04/29
- INR was subtherapeutic at 1.9, increased warfarin dose to 4 mg, INR now 2.7, will resume home dose of 2.5 mg nightly now that amiodarone has been discontinued, INR goal 2-3
Diabetes mellitus type 2:
- Hyperglycemic during this admission, multiple spot glucose checks greater than 200
- not on diabetic meds at home
- Hemoglobin A1c 6.9%
- Started low-dose metformin 500 mg twice daily, glucose now better controlled
- Will need to monitor INR closely considering potential interaction between metformin and warfarin
- Sliding scale insulin as needed
- Diabetic education
Acute respiratory failure with hypoxia:
- Secondary to pulmonary edema in the setting of acute on chronic HFpEF
- Continue supplemental oxygen as needed
- Treat underlying heart failure as outlined above
COPD
- continue Fluticasone/Salmeterol
- prn Nebs
GERD
Essential HTN
- continue BB
DVT ppx: Warfarin
Code: Full
Anticipated Discharge: 24 - 48 hours
Subjective/Interval History
-
Date of Service: April 29, 2025
Patient was seen and examined at bedside this morning. Right groin sebaceous cyst continue to drain appropriately and surrounding erythema is improving. She has been n.p.o. after midnight for YUE/cardioversion.
Objective Data
-
Labs:
Laboratory Results
04/29/25
07:58
WBC 6.9
Hgb 14.3
Hct 47.9 H
Plt Count 142
PT 29.0 H
INR 2.71
Sodium 132 L
Potassium 4.3
Chloride 88 L
Carbon Dioxide 36 H
BUN 28 H
Creatinine 1.0
Glucose 98
Calcium 8.4
Vital Signs:
Vital Signs
Temp Pulse Resp BP Pulse Ox
98.1 F 79 18 121/73 93
04/29/25 11:40 04/29/25 11:40 04/29/25 11:40 04/29/25 11:40 04/29/25 11:40
I&O
04/28/25 04/29/25 04/30/25
06:59 06:59 06:59
Intake Total 720 / 720 1140 / 1140
Output Total 2099 / 2099
Balance 720 / 720 -960 / -960
Review of Systems
-
History Source: Patient
All other systems: Reviewed and negative
Musculoskeletal: Reports Edema (Bilateral lower extremity edema)
Skin: Reports Sores (Right groin and thigh cysts)
Physical Exam
-
General: No Apparent Distress
[2025-04-29 16:40] LABS: Glucose - Point of Care 88 mg/dl (70-99)
[2025-04-29] MEDS: VITAMIN C 1000 MG PO (17:36)
[2025-04-29] MEDS: COUMADIN 2.5 MG PO (17:36)
[2025-04-29] MEDS: ROXICODONE 5 MG PO (20:18)
[2025-04-29 21:36] LABS: Glucose - Point of Care 79 mg/dl (70-99)
[2025-04-30 03:13] VITALS: BP 114/56
[2025-04-30 06:00] VITALS: BMI 28.5
[2025-04-30 07:00] VITALS: BP 127/50
[2025-04-30] MEDS: ADVAIR HFA 115/21 MCG INHALER 2 PUFF INH ×2 (07:26→19:50)
[2025-04-30 08:14] LABS: INR 2.74; PT 29.2 Sec (11.4-14.6)
[2025-04-30 08:23] LABS: Glucose - Point of Care 86 mg/dl (70-99)
[2025-04-30 08:32] LABS: Blood Urea Nitrogen 26 mg/dl (7-17); Calcium 8.5 mg/dl (8.4-10.2); Carbon Dioxide 37 mmol/L (22-30); Chloride 90 mmol/L (98-107); Estimated Creatinine Clearance 41 ml/min; Glucose 76 mg/dl (70-99); Potassium 3.6 mmol/L (3.5-5.1); Sodium 135 mmol/L (135-145); eGFR 57.66
[2025-04-30] MEDS: LIPITOR 20 MG PO (09:01)
[2025-04-30] MEDS: ASPIR LOW (ENTERIC COATED) 81 MG PO (09:01)
[2025-04-30] MEDS: ZYVOX 600 MG PO ×2 (09:01→20:08)
[2025-04-30] MEDS: NEURONTIN 300 MG PO ×2 (09:01→20:08)
[2025-04-30] MEDS: LOPRESSOR 25 MG PO ×2 (09:01→20:08)
[2025-04-30] MEDS: GLUCOPHAGE 500 MG PO ×2 (09:01→17:03)
[2025-04-30] MEDS: LASIX 80 MG IV ×2 (09:09→17:03)
[2025-04-30] MEDS: ROXICODONE 5 MG PO ×2 (09:25→17:10)
--- NOTE | 2025-04-30 10:53 | W.PN.CARDCBS ---
Today's Communication / Plan
-
Continue IV lasix
Continue abx
Amiodarone stopped due to MARIANELA thrombus, CV not performed 04/29.
Continue warfarin
Continue lopressor for rate control
Impression / Plan
-
PCP: Antonieta Clark MD
CDY: Yahaira Evans MD locally and Dr. Pat at [facility] ([phone])
Assessment:
Patient admitted with RLE cellulitis 04/21/2025
Recent admission for PVI and posterior wall ablation 03/16/2025
Recent admission for RLE cellulitis 03/04/2025 until 03/09/2025
Recent admission for acute HF 02/22/2025 until 02/26/2025
Recurrent RLE cellulitis
Acute on chronic HFpEF
Mitral valve disease
s/p bioprosthetic mitral valve replacement 2014
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
Spontaneous echo contrast in the left atrium and definite thrombus in the MARIANELA by YUE 08/13/2024
No longer evidence of MARIANELA thrombus on repeat YUE 10/06/2024
Concern for possible MARIANELA thrombus by YUE 01/20/2025
Persistent MARIANELA thrombus by YUE 04/29/2025
Eliquis transitioned to warfarin for LA smoke by YUE 08/13/24
Paroxysmal atrial fibrillation and atypical atrial flutter
s/p PVI 04/2023
s/p PVI with PFA, posterior wall ablation 03/16/2025
Recurrent atrial flutter noted on ECG 04/26/2025
HCM, severe concentric LVH, on Camzyos, dosing changes managed at [facility]
PHTN
s/p RHC at [facility] 12/2023
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
Mild , peak to peak gradient 11 mmHg by cath at [facility] 07/29/24
h/o endocarditis
Hypertension
Hyperlipidemia
COPD
YUE 08/13/24: [facility] [place] at [place] study, EF 65%, moderately dilated RV with mild RV hypokinesis, severely dilated LA with evidence of spontaneous echo contrast and definite MARIANELA thrombus, bioprosthetic mitral valve with marked thickening and
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
YUE 10/06/2024: EF 60 to 65%, severe concentric LVH, mildly dilated RV and mildly reduced RV systolic function, some spontaneous echo contrast seen in the left atrial cavity, but no left atrial appendage thrombus, bioprosthetic mitral valve with
significant thickening and calcification, restricted leaflet motion and the valve visually appears to have moderate to severe stenosis, mean mitral valve gradient 11 mmHg, moderate to severe MR with flow coming into the left atrial appendage, mild
to moderate aortic regurgitation, moderate TR
YUE 01/20/25: EF 55 to 60%, severe LVH, aortic sclerosis, mild to moderate AR, well-seated bioprosthetic valve in mitral position with mean mitral gradient 6 mmHg, no MR, again spontaneous echo contrast and possible thrombus in left atrial appendage
Echo 02/22/2025: EF 67% without obvious LVOT gradient, s/p TMVR with previous surgical MVR peak/mean 22/11 mmHg, no MR, mild to moderate aortic regurgitation, dilated RV with hypokinesis, severe TR with PAP 74 mmHg
YUE 04/29/2025: EF 50-55%, thrombus visualized in MARIANELA, mild AR, s/p valve in valve TMVR, mean gradient 4 mmHg, moderate TR
Plan:
-Presented with recurrent RLE cellulitis and acute HF.
-Diuresing with IV lasix 80mg BID. Given a 1x dose of metolazone 2.5 mg 04/29.
-Weight down another 5lbs overnight, down to 150 lbs on 04/30. Dry weight previously 149 lbs
-Creat stable at 1.0. Continue IV diuresis, but may be close to transitioning to PO lasix
-Continue daily weights, I&Os.
-Underwent YUE 04/29 which revealed MARIANELA thrombus. CV not performed.
-Remains in rate controlled atrial flutter following recent PVI and posterior wall ablation 03/2025.
-HR stable on lopressor 25mg BID. Amiodarone stopped due to MARIANELA thrombus.
-Continues on warfarin w/ goal INR 2-3. INR 04/30 is 2.74. Previously Eliquis d/c'd due to MARIANELA thrombus 08/2024.
-Known h/o HCM followed w/ Dr. Pat at [facility]. Chronically on Camzyos managed by their office. Continues on 10mg daily.
-Not chronically on ELOINA/ARB/ANRI/SGLT2 inhibitor as her HF is primarily driven by HCM and valvular heart disease.
-Continues on abx per ID for recurrent cellulitis w/ cyst in R groin.
-Wean O2 as able.
HPI: Patient was admitted last week with recurrent RLE cellulitis and has been undergoing treatment, cardiology is now consulted for recurrent HF. Patient came to the ER back on 04/21/2025 with concerns for recurrent RLE cellulitis described as
pain erythema and swelling in the RLE. Patient had similar admission in February. Infectious diseases following along and on initial blood cultures drawn in the ER the patient grew Strep, but no growth in subsequent blood cultures. Wound cultures
growing Staph hemolyticus. Patient is currently on a regimen of Zyvox. Patient weighed 154 lbs on admission and weight is up to 157 lbs today. Patient has been requiring supplemental oxygen since admission and oxygen demands have increased as
high as 3 L NC at times.
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
Subjective
Date of Service: April 30, 2025
Still w/ LE edema, weeping. No SOB.
Objective
Labs:
04/29/25 07:58
04/30/25 06:46
Labs
Hgb 14.3 g/dL (12.0-16.0) 04/29/25 07:58
Hct 47.9 % (37.0-47.0) H 04/29/25 07:58
Plt Count 142 10^3/uL (130-400) 04/29/25 07:58
PT 29.2 Sec (11.4-14.6) H 04/30/25 06:46
INR 2.74 04/30/25 06:46
APTT 41.3 Sec (23.4-35.0) H 04/21/25 12:23
Sodium 135 mmol/L (135-145) 04/30/25 06:46
Potassium 3.6 mmol/L (3.5-5.1) 04/30/25 06:46
BUN 26 mg/dl (7-17) H 04/30/25 06:46
Creatinine 1.0 mg/dL (0.6-1.0) 04/30/25 06:46
Glucose 76 mg/dl (70-99) 04/30/25 06:46
Vital Signs and I&O:
Vital Signs
Temp Pulse Resp BP Pulse Ox
98.7 F 90 14 127/50 97
04/30/25 07:00 04/30/25 07:28 04/30/25 07:28 04/30/25 07:00 04/30/25 08:55
Vital Signs
Temp Pulse Resp BP Pulse Ox
98.7 F 90 14 127/50 97
04/30/25 07:00 04/30/25 07:28 04/30/25 07:28 04/30/25 07:00 04/30/25 08:55
Intake & Output
04/28/25 04/29/25 04/30/25 05/01/25
06:59 06:59 06:59 06:59
Intake Total 720 / 720 1140 / 1140 720 / 720
Output Total 2099 / 2099 2800 / 2800
Balance 720 / 720 -960 / -960 -2079 / -2079
Physical Exam
Physical Exam
Gen: NAD, AAOx3
HEENT: NC/AT, sclera anicteric
CV: Irregular
Lungs: On 2L NC
Ext: +1 LE edema
Skin: Warm, dry
Neuro: Non-focal
[2025-04-30 11:00] VITALS: BP 134/72
[2025-04-30 13:05] LABS: Glucose - Point of Care 111 mg/dl (70-99)
--- NOTE | 2025-04-30 14:11 | W.PN.ID1 ---
Date of Service
Date of Service: April 30, 2025
Today's Communication
See below.
Assessment / Plan
# Relapse vs recurrent RLE cellulitis, 3rd episode in 3 months. Continues to improve/resolve
# Right thigh nodular-spontaneously draining thick yellow fluid
# New right lateral thigh nodular lesions x 3, while on abx
# Alpha strep bacteremia (1 of 2 sets) - contaminant
- Right thigh painful nodules
? erythema nodosum vs other
Appears to correlate with increase in furosemide dose; similar presentation in 02/2025 when furosemide dose increased outpt
Gabapentin is new med prior to nodular lesions, per pt.
-Swabbed medial thigh drainage for AFB, aerobic and anaerobic cx.
- Continue linezolid 600mg po bid through 05/04/25.
CBC stable.
-avoid tyramine-rich foods while on linezolid.
# Acute on chronic CHF
- Diuresing with furosemide 80mg bid
- Elevate BLE
# Afib
# New onset DM
Chief Complaint
-: Cellulitis
Subjective / Review of Systems
c/o nodular lesions have surfaced on R posterior thigh.
Vital Signs / Physical Exam
Vital Signs
Vital Signs
Temp Pulse Resp BP Pulse Ox
99.3 F 89 18 134/72 96
04/30/25 11:00 04/30/25 11:00 04/30/25 11:00 04/30/25 11:00 04/30/25 11:00
Physical Exam
Constitutional: No Acute Distress and Comfortable
Cardiovascular: Irregular Rate and S1/S2
Gastrointestinal: Soft and Non Tender
Extremities: Edema (BLE edema decreasing)
Wound: Other (Right medial thigh previous nodules now flat draining thick yellow fluid; Right lateral thigh - 3 new firm pink tender nodules )
Neurological: AO x 3
Objective Data
Lab Data
Lab Results
04/29/25 07:58
04/30/25 06:46
PT 29.2 Sec (11.4-14.6) H 04/30/25 06:46
INR 2.74 04/30/25 06:46
APTT 41.3 Sec (23.4-35.0) H 04/21/25 12:23
Estimated Creat Clear 41 ml/min 04/30/25 06:46
Most recent labs reviewed.
Micro Results:
04/30/25 09:09 Anaerobic Culture - Pending
Leg - Right
04/30/25 09:09 Wound Culture - Pending
Leg - Right Gram Stain - Pending
04/23/25 16:54 Blood Culture - Final
Blood/Venous No Growth - Final Report
04/23/25 15:46 Blood Culture - Final
Blood/Venous No Growth - Final Report
04/21/25 12:23 Blood Culture - Final
Blood/Venous Streptococcus species
Gram Stain - Final
04/21/25 12:29 Blood Culture - Final
Blood/Venous No Growth - Final Report
04/22/25 11:40 Wound Culture - Final
Leg - Right Staphylococcus haemolyticus
Gram Stain - Final
04/22/25 14:30 MRSA Screen - Final
Nose No Methicillin Resistant Staphylococcus aureus isolated.
peripheral vascular ultrasound on 04/21/25: no evidence of right lower extremity deep venous thrombosis.
04/23/[address]: No focal abscesses identified. Probable sebaceous cysts of the inner right thigh as described above.
Care Review
Plan reviewed with: Physician (Dr. Jensen)
[2025-04-30 15:34] VITALS: BP 114/61
--- NOTE | 2025-04-30 15:53 | W.PN.HOSP.TC ---
Today's Communication/Plan
-
Assessment / Plan
Assessment / Plan
General: No Apparent Distress, Comfortable and Conversant
HEENT: NormoCephalic, Moist mucous membranes, Atraumatic
Respiratory: Clear and Non Labored Respirations
Cardiac: Irregular rhythm, heart rate 90
GI: Soft, Non Tender, Non Distended and Normal Bowel Sounds
Musculoskeletal: Bilateral lower extremity edema R<L, right groin and popliteal wounds with dressing in place
: NO Bellamy
Neuro: Awake, Alert, Nonfocal/grossly intact
Psych: Calm and cooperative
Assessment:
RLE cellulitis, recurrent
- s/p multiple antibiotic courses
- Cyst in right groin draining appropriately, surrounding erythema improving
- Continuing antibiotics with linezolid 600 mg p.o. twice daily through 05/04
- Wound culture growing staph hemolyticus sensitive only to vancomycin, blood cxs growing alpha strep and 1 of 2 sets (likely contaminant)
- Started diabetic medications for better blood glucose control which may be a factor with this recurrent infection
- Swab for AFB, aerobic, and anaerobic culture today 04/30
- ID suggested these lesions are possibly erythema nodosum potentially triggered by medication such as furosemide or gabapentin, awaiting response from dermatology regarding this possibility
- Will definitely need outpatient dermatology evaluation
Acute on chronic HFpEF:
- Developed pulmonary edema and hypoxia, started on supplemental oxygen, edematous lower extremities
- Possibly due to A-fib with RVR
- Continuing Lasix to 80 mg IV twice daily, given 1 dose of metolazone, appears to be improving, will follow-up with cardiology regarding possible transition to oral Lasix regimen
- Monitor I's and O's and daily weights, weight since admission 70 kg => 71.3 kg => 71.2 kg => 70.5 kg => 68.3 kg
- Continue fluid restriction
- Beta-blockade with metoprolol to tartrate 25 mg p.o. twice daily
- Uses Camzyos for hypertrophic cardiomyopathy, however has been unable to have anyone bring her home medication
parox A. Fib
- Now back in A-fib, heart rate now improved to around 90
- Had plan for YUE/cardioversion 04/29, however MARAINELA thrombus was identified and so cardioversion was aborted
- Discontinued amiodarone considering MARIANELA thrombus noted on YUE 04/29
- Continue BB with metoprolol tartrate 25 mg twice daily
- INR therapeutic at 2.7, continuing home dose of warfarin 2.5 mg nightly, INR goal 2-3
Diabetes mellitus type 2:
- Hyperglycemic during this admission, multiple spot glucose checks greater than 200
- not on diabetic meds at home
- Hemoglobin A1c 6.9%
- Started low-dose metformin 500 mg twice daily, glucose now better controlled
- Will need to monitor INR closely considering potential interaction between metformin and warfarin
- Sliding scale insulin as needed
- Diabetic education
Acute respiratory failure with hypoxia:
- Secondary to pulmonary edema in the setting of acute on chronic HFpEF
- Continue supplemental oxygen as needed
- Treat underlying heart failure as outlined above
COPD
- continue Fluticasone/Salmeterol
- prn Nebs
GERD
Essential HTN
- continue BB
DVT ppx: Warfarin
Code: Full
Anticipated Discharge: 24 - 48 hours
Subjective/Interval History
-
Date of Service: April 30, 2025
Patient was seen and examined at bedside this morning. Unable to cardiovert yesterday due to MARIANELA thrombus noted on YUE. Continuing IV diuresis.
Objective Data
-
Labs:
Laboratory Results
04/30/25
06:46
PT 29.2 H
INR 2.74
Sodium 135
Potassium 3.6
Chloride 90 L
Carbon Dioxide 37 H
BUN 26 H
Creatinine 1.0
Glucose 76
Calcium 8.5
Vital Signs:
Vital Signs
Temp Pulse Resp BP Pulse Ox
97.7 F 90 22 114/61 94
04/30/25 15:34 04/30/25 15:34 04/30/25 15:34 04/30/25 15:34 04/30/25 15:34
I&O
04/29/25 04/30/25 05/01/25
06:59 06:59 06:59
Intake Total 1140 / 1140 720 / 720
Output Total 2099 / 2100 2800 / 2800
Balance -960 / -960 -2079 / -2079
Review of Systems
-
History Source: Patient
All other systems: Reviewed and negative
Musculoskeletal: Reports Edema (Bilateral lower extremity edema improving)
Skin: Reports Sores (Multiple nodules on right leg, groin nodules draining)
Physical Exam
-
General: No Apparent Distress
[2025-04-30 16:40] LABS: Glucose - Point of Care 128 mg/dl (70-99)
[2025-04-30] MEDS: COUMADIN 2.5 MG PO (17:03)
[2025-04-30] MEDS: VITAMIN C 1000 MG PO (17:03)
[2025-04-30 19:34] VITALS: BP 124/62
[2025-04-30 21:19] LABS: Glucose - Point of Care 131 mg/dl (70-99)
[2025-04-30 23:47] VITALS: BP 105/58
[2025-05-01 03:42] VITALS: BP 135/68
[2025-05-01 06:00] VITALS: BMI 27.9
[2025-05-01] MEDS: ADVAIR HFA 115/21 MCG INHALER 2 PUFF INH (07:57)
[2025-05-01 08:05] LABS: Glucose - Point of Care 101 mg/dl (70-99)
[2025-05-01 08:08] LABS: INR 3.89; PT 38.4 Sec (11.4-14.6)
[2025-05-01] MEDS: ROXICODONE 5 MG PO (08:08)
[2025-05-01] MEDS: ASPIR LOW (ENTERIC COATED) 81 MG PO (08:08)
[2025-05-01] MEDS: NEURONTIN 300 MG PO (08:08)
[2025-05-01] MEDS: ZYVOX 600 MG PO (08:09)
[2025-05-01] MEDS: LIPITOR 20 MG PO (08:09)
[2025-05-01] MEDS: GLUCOPHAGE 500 MG PO (08:09)
[2025-05-01] MEDS: LOPRESSOR 25 MG PO (08:10)
[2025-05-01] MEDS: LASIX 80 MG IV (08:12)
[2025-05-01 08:15] VITALS: BP 130/67
[2025-05-01 08:25] LABS: Blood Urea Nitrogen 33 mg/dl (7-17); Calcium 8.5 mg/dl (8.4-10.2); Carbon Dioxide 36 mmol/L (22-30); Chloride 89 mmol/L (98-107); Estimated Creatinine Clearance 37 ml/min; Glucose 101 mg/dl (70-99); Potassium 3.8 mmol/L (3.5-5.1); Sodium 135 mmol/L (135-145); eGFR 51.43
[2025-05-01 11:38] LABS: Glucose - Point of Care 96 mg/dl (70-99)
[2025-05-01] MEDS: MAXIPIME 2000 MG IV (11:47)
[2025-05-01] MEDS: STERILE WATER FOR INJECTION 10 ML IV (11:47)
[2025-05-01 11:50] VITALS: BP 111/63
--- NOTE | 2025-05-01 12:18 | W.PN.ID1 ---
Date of Service
Date of Service: May 01, 2025
Today's Communication
See below.
Assessment / Plan
# Relapse vs recurrent RLE cellulitis with nodular lesions, 3rd episode in 3 months.
# Right thigh nodular-spontaneously draining moderate amt thick yellow fluid
# Developed New right lateral thigh nodular lesions x 3 or 4, while on abx
# Alpha strep bacteremia (1 of 2 sets) - contaminant
-04/30 Swabbed medial thigh drainage lesions: cx GNR, possibly Pseudomonas per micro
Unable to send for AFB; needs tissue biopsy for AFB cx
-> Start cefepime 2g IV q24 pending culture data.
- Can dc po linezolid (d10 abx with Gram positive coverage).
- Right thigh painful nodules
? erythema nodosum vs other
? Appears to correlate with increase in furosemide dose; similar presentation in 02/2025 when furosemide dose increased outpt
Gabapentin is new med prior to nodular lesions, per pt.
If persists, should see outpt derm for biopsy
# s/p Acute on chronic CHF
# Afib
04/29 YUE: +thrombus on MARIANELA
# New onset DM
Chief Complaint
-: Cellulitis
Subjective / Review of Systems
new thigh nodules. medial thigh lesions draining.
Vital Signs / Physical Exam
Vital Signs
Vital Signs
Temp Pulse Resp BP Pulse Ox
97.6 F 84 20 111/63 97
05/01/25 11:50 05/01/25 11:50 05/01/25 11:50 05/01/25 11:50 05/01/25 11:50
Physical Exam
Constitutional: No Acute Distress and Comfortable
Cardiovascular: Irregular Rate and S1/S2
Gastrointestinal: Soft and Non Tender
Extremities: Edema (BLE edema decreasing)
Wound: Other (Right medial thigh previous nodules now flat draining thick yellow fluid; Right lateral thigh - 3 or 4 new firm pink tender nodules )
Neurological: AO x 3
Objective Data
Lab Data
Lab Results
04/29/25 07:58
05/01/25 07:22
PT 38.4 Sec (11.4-14.6) H 05/01/25 07:22
INR 3.89 05/01/25 07:22
APTT 41.3 Sec (23.4-35.0) H 04/21/25 12:23
Estimated Creat Clear 37 ml/min 05/01/25 07:22
Most recent labs reviewed.
Micro Results:
04/30/25 09:09 Anaerobic Culture - Preliminary
Leg - Right Culture pending. Anaerobic cultures are examined after 3
days incubation. Additional information to follow.
04/30/25 09:09 Wound Culture - Preliminary
Leg - Right Gram negative bacilli
Gram Stain - Preliminary
04/23/25 16:54 Blood Culture - Final
Blood/Venous No Growth - Final Report
04/23/25 15:46 Blood Culture - Final
Blood/Venous No Growth - Final Report
04/21/25 12:23 Blood Culture - Final
Blood/Venous Streptococcus species
Gram Stain - Final
04/21/25 12:29 Blood Culture - Final
Blood/Venous No Growth - Final Report
04/22/25 11:40 Wound Culture - Final
Leg - Right Staphylococcus haemolyticus
Gram Stain - Final
04/22/25 14:30 MRSA Screen - Final
Nose No Methicillin Resistant Staphylococcus aureus isolated.
peripheral vascular ultrasound on 04/21/25: no evidence of right lower extremity deep venous thrombosis.
04/23/[address]: No focal abscesses identified. Probable sebaceous cysts of the inner right thigh as described above.
Care Review
Plan reviewed with: Physician (Dr. Jensen)
--- NOTE | 2025-05-01 13:31 | W.DCSUMMARY ---
Discharge Summary
Discharge Data
Date of Admission: 04/21/25
Date of Discharge: 05/01/25
Total time spent discharging patient (in min): 62
-
Pending Results: No
Hospital Course
Ms. 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
associated pain and erythema. This has been a recurrent problem for her with multiple nodules scattered throughout her right lower extremity with associated local erythema. She has been treated with multiple courses of antibiotics previously. The
drainage from some of her wounds was cultured and resulted positive for staph hemolyticus sensitive to vancomycin. She was treated with vancomycin and then transitioned to oral linezolid. 1 set of blood cultures was positive for alphahemolytic
strep, although the infectious disease team felt this was likely a contaminant. Either way she was covered appropriately with vancomycin/linezolid. Imaging of her leg showed no evidence of abscess but did identify the lesions as likely to be
multiple inflamed sebaceous cysts. Case was discussed with dermatology who recommended treating acute infection and then following up in the outpatient setting for further evaluation including biopsy.
Repeat cultures from her purulent drainage grew gram-negative rods. At that point she had been treated with 10 days of vancomycin/linezolid and was transitioned to antibiotic coverage with cefepime due to suspected Pseudomonas. However she did not
want to stay in the hospital any longer for IV antibiotic treatment or any other treatment. She was given a prescription for 10 days of ciprofloxacin to cover for possible Pseudomonas infection. She was told that we have no way of knowing if this
bacterial infection is sensitive to ciprofloxacin because the cultures are not yet final. She accepted that risk and preferred to go home rather than remain hospitalized for treatment. This was the best possible outpatient treatment regimen with
the information available to us at the time. The infectious disease team was closely involved and will follow-up final culture results and notify the patient if another antibiotic would be more appropriate for treatment of her infection.
During her hospitalization she developed lower extremity edema and abrupt weight gain. She also went into A-fib with RVR. She also became mildly hypoxic with exertion and so was started on supplemental oxygen via low-flow nasal cannula. She was
treated for an exacerbation of her heart failure with preserved ejection fraction. She was diuresed aggressively with improvement in her weight and improvement in her respiratory status. On the day of discharge her weight was 66.9 kg which is
close to her dry weight. 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 If she changes her mind she should contact
her primary care physician for help arranging home oxygen if it is still needed.
She was evaluated by cardiology who were planning a transesophageal echocardiogram and cardioversion for her rapid A-fib. However YUE identified a left atrial appendage thrombus and so cardioversion was aborted. She had been started on amiodarone
which was also discontinued at that time. Her heart rate was much better controlled with improvement in her volume status. She will be continued on beta-blockade with metoprolol tartrate 25 mg twice daily. She will also need to continue her home
dose of Camzyos 10 mg daily (of note she did not bring this medication with her to the hospital and this medication is not available on hospital formulary; no one was able to bring this medication to the hospital for her to continue while inpatient).
She had multiple spot glucose checks greater than 200 and her hemoglobin A1c was 6.9%. Diabetes is uncontrolled blood glucose may be contributing factor in her recurrent skin infections. She was started on metformin and will be continued on
metformin at discharge. However, she is not sure if she will continue taking it but will consider it and follow-up with her primary care physician for further management.
Her INR dropped just below the therapeutic range at 1.97 and remained at 1.92 the next day before returning to within therapeutic range at 2.29. This is possibly due to to being started on metformin for newly diagnosed diabetes. Her INR later
became supratherapeutic at 3.89, which is likely due to an interaction with amiodarone which she was on briefly for A-fib with RVR. Her amiodarone has been discontinued. She has been instructed to hold her home warfarin dose for 2 days (05/01 and
05/02) and contact her warfarin clinic for further instructions. She will need close follow-up for INR monitoring especially if she decides to continue taking metformin.
General: No Apparent Distress, Comfortable and Conversant
HEENT: NormoCephalic, Moist mucous membranes, Atraumatic
Respiratory: Clear and Non Labored Respirations
Cardiac: Irregular rhythm, heart rate 85
GI: Soft, Non Tender, Non Distended and Normal Bowel Sounds
Musculoskeletal: Bilateral lower extremity edema R<L, right groin and popliteal wounds with dressing in place
: NO Bellamy
Neuro: Awake, Alert, Nonfocal/grossly intact
Psych: Calm and cooperative
Discharge Plan
-
Patient Disposition: Home with Home Care
Discharge Diagnosis/Procedures: Right lower extremity cellulitis
Activity Restrictions/Additional Instructions:
Wound Care Instructions Right Posterior Thigh- Clean with Vashe and apply alginate to open, draining area and cover with dry dressing. Change daily and PRN drainage.
Follow up at wound care center call for an appointment.
You were admitted for treatment of recurrent skin infection of your right leg. You had multiple cysts on your leg that appeared infected and some of them are draining. The infection appears to be improving with antibiotics. Your blood cultures
were positive which means that some of the bacteria from your skin got into your bloodstream. However it is possible that the positive blood cultures were just a contaminant because only some of them were positive and the repeat cultures were
negative. Regardless, the antibiotics you have been on for treatment of your cellulitis will also treat that infection. Repeat cultures from your wound drainage later grew a new bacteria and so your antibiotic was changed. The final cultures are
not yet available. However you did not want to stay for any further amount of time to await those final culture results. Instead you preferred to go home with the best available antibiotic option at this time. You will be discharged with a
prescription for ciprofloxacin 500 mg to take orally 2 times per day for 10 days. The infectious disease team will monitor your cultures and will notify you if ciprofloxacin does not work for this infection. You will need to monitor your INR
closely because ciprofloxacin interacts with warfarin and could increase your INR. You should not take warfarin for the next 2 days (05/01 and 05/02) and contact your warfarin clinic for further instructions after that time. You will need to
follow-up closely with dermatology in the outpatient office for further evaluation including biopsies.
You also developed acute heart failure while in the hospital and were started on IV diuretics. Your weight increased to 71.3 kg (157 pounds) and developed lower extremity swelling. Your heart failure improved with IV diuresis and you have now been
transitioned back to your home dose of oral Lasix. You were evaluated by cardiology because you developed atrial fibrillation with a rapid heart rate. You were started on a medication called amiodarone to help restore normal sinus rhythm. Also,
your INR dropped to 1.9 which is below the therapeutic range of 2-3. Although your INR recovered, an echocardiogram showed that you had a blood clot in your left atrial appendage. The cardiology team had been tentatively planning to cardiovert you
back into normal sinus rhythm, but because of the blood clot in your left atrial appendage the cardioversion was canceled and amiodarone was discontinued. Your INR increased to 3.8 on the day of discharge which is likely due to an interaction
between your warfarin and amiodarone. You should hold your home dose of warfarin tonight 05/01 and 05/02 and contact your warfarin clinic regarding further dosage adjustments as needed. Your weight was 66.9 kg (147 pounds) on the day of discharge
which is close to your baseline.
You were also diagnosed with diabetes due to multiple blood sugar readings over 200 and hemoglobin A1c measurement of 6.9%. You were started on a diabetic medication called metformin with improvement in your blood sugars. You should follow-up
closely with your primary care physician for ongoing blood sugar monitoring and diabetes medication adjustments as needed. Metformin can interfere with your warfarin which can make your warfarin less effective. Your INR will need to be monitored
closely when for starting on metformin in order to correctly dose your warfarin.
You have been set up for home oxygen due to low oxygen level when exerting yourself. This is likely due to your resolving heart failure and would only be needed short-term. However you did not want to carry an oxygen tank with you because it was
inconvenient. We would strongly encourage you to reconsider this and contact your primary care physician if you change your mind.
Referrals:
Antonieta Clark MD [Family Provider, Family Practice]
Mercy Maglalon DO [Active, Dermatology]
Referral Note: will need referral from PCP. for evaluation of inner thigh lesions and for potential biopsy
Prescriptions:
New
(DME) Contour Next Test Strips Strip
Qty: 60 0RF
Rx Instructions:
Pt Testing 2 times a day
(DME) lancets [Microlet Lancet] Misc
Qty: 60 0RF
Rx Instructions:
Pt testing 2 times a day
metformin 500 mg Tablet
500 mg PO BID@0800,1700 30 Days Qty: 60 0RF
ciprofloxacin HCl 500 mg tablet
500 mg PO BID 10 Days Qty: 20 0RF
Continued
atorvastatin [Lipitor] 20 mg Tablet
20 mg PO DAILY
acetaminophen [Tylenol] 325 mg Tablet
650 mg PO Q4HPRN PRN (Reason: MILD PAIN)
ascorbic acid (vitamin C) [Vitamin C] 500 mg Tablet
1,000 mg PO QPM
aspirin 81 mg Tablet,Delayed Release (Dr/Ec)
81 mg PO DAILY
furosemide 20 mg Tablet
60 mg PO BID
metoprolol tartrate 25 mg tablet
25 mg PO BID
Patient Comments:
per patient, takes 25mg BID
fluticasone propion-salmeterol 113 mcg-14 mcg/actuation Aero Powdr Breath Act W/Sensor
1 inh INHALATION R BID
gabapentin 300 mg capsule
300 mg PO BID
Camzyos 5 mg Capsule
10 mg PO DAILY Qty: 30 0RF
albuterol sulfate 90 mcg/actuation Hfa Aerosol Inhaler
2 puff INHALATION R Q6HPRN PRN (Reason: SHORTNESS OF BREATH)
Held
warfarin [Jantoven] 2 mg tablet
2.5 mg PO QPM
Hold Instructions: Hold evening doses on 05/01, follow-up with warfarin clinic after that for further instructions
Discharge Orders:
Discharge Patient (As Directed); Ordered 05/01/25
Ordered By: Alex Jensen
Discharge Date and Time
Print Language: TURKMEN
--- NOTE | 2025-05-01 14:35 | PTCARENOTE ---
Pt. unable to be weaned off oxygen during this hospital stay. Pt. 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 Pt. educated on risks of low oxygen levels. Dr. Evans made aware. Pt. provided diabetic education regarding glucose monitoring and importance of taking Metformin as ordered, along with following up with her
doctor for oncoming medical management and adherence to a diabetic diet. Pt. states she has no questions at time of discharge.
--- NOTE | 2025-05-01 16:29 | CM ---
Patient was not seen prior to discharge today. She was discharged prior to being seen.
Per RN, pt refused home O2 and insisted on driving herself home.
== END 2025-05-01 15:20 | disposition home or self-care (01) | DRG 602 ==
LOC: 4 EAST ACU 15:55
PROVIDERS: Internal Medicine Infectious Disease; Physician Assistant Medical; ADMITTING PHYSICIAN Internal Medicine; ATTENDING PHYSICIAN Internal Medicine; EMERGENCY PHYSICIAN Emergency Medicine; FAMILY PHYSICIAN Family Medicine; OTHER PHYSICIAN Internal Medicine Cardiovascular Disease; OTHER PHYSICIAN Internal Medicine Infectious Disease
DX: L03.115 Cellulitis of right lower limb (principal); I50.33 Acute on chronic diastolic (congestive) heart failure; J96.01 Acute respiratory failure with hypoxia; I48.19 Other persistent atrial fibrillation; I42.2 Other hypertrophic cardiomyopathy; I48.92 Unspecified atrial flutter; L72.3 Sebaceous cyst; I51.3 Intracardiac thrombosis, not elsewhere classified; J44.9 Chronic obstructive pulmonary disease, unspecified; K21.9 Gastro-esophageal reflux disease without esophagitis; Z87.891 Personal history of nicotine dependence; Z79.899 Other long term (current) drug therapy; Z79.82 Long term (current) use of aspirin; Z79.01 Long term (current) use of anticoagulants; Z86.79 Personal history of other diseases of the circulatory system; I11.0 Hypertensive heart disease with heart failure; I25.10 Atherosclerotic heart disease of native coronary artery without angina pectoris; I87.2 Venous insufficiency (chronic) (peripheral); Z90.49 Acquired absence of other specified parts of digestive tract; Z95.3 Presence of xenogenic heart valve
CPT/HCPCS: 71046; 73701; 74018; 80048; 80202; 82962; 83036; 83735; 85025; 85027; 85610; 85730; 87040; 87070; 87075; 87077; 87147; 87186; 87205; 93005; 93312; 93320; 93325; 93971; 94640; 96374; 97116; 97162; 97166; 97530; 97535; 99284; Q9967

== ENCOUNTER 2025-05-03 19:40 | Inpatient (IN) | payer MEDICARE, SELFPAY ==
[2025-05-03] VITALS (11 sets, daily range): BP systolic 91–130; BP diastolic 49–77; BMI 32.0; BMI 28.6; BMI 28.4
--- NOTE | 2025-05-03 15:33 | ED.GENMED ---
History of Present Illness
<Clark Conn PA-C - Last Filed: 05/03/25 17:47>
General
Chief Complaint: Breathing Problem
Source: patient
Exam Limitations: none
Time Seen by Provider: 05/03/25 14:57
History of Present Illness
History of Present Illness:
79-year-old female with history of COPD, CHF, A-fib on Coumadin presents for evaluation of shortness of breath. She was just discharged from this hospital 2 days ago for cellulitis to the leg. She has been feeling weak since discharge. She
actually fell twice yesterday and was at [facility] yesterday had CTs performed which were negative. She states that they found that her breathing was off then and they recommended she stay she cannot stay if she had a dog to take care of
her. She presents today with increasing shortness of breath even at rest and certainly with minimal exertion. She notes increased leg swelling. No other complaints at this time
Past History
<Clark Conn PA-C - Last Filed: 05/03/25 17:47>
Past History
ED Past Medical History: Arrthythmia (Atrial fibrillation), CHF, COPD, GERD, HTN, Valvular disease (Endocarditis) and Other
ED Past Surgical History: Appendectomy, Cardiac and Other
Social History
Tobacco: Non-smoker
Alcohol: None
Drug: None
Phy Exam
<Clark Conn PA-C - Last Filed: 05/03/25 17:47>
Physical Exam
Physical Exam:
General: Well-developed female with increased work of breathing
HEENT normal cephalic atraumatic
Heart: irregular rate and rhythm
Lungs: Diminished bilaterally with prolonged expiratory phase no obvious Rales
Abdomen is soft nontender extremities: Pitting edema bilateral lower extremities
Neurologic exam: Alert and oriented answering questions appropriately
Scores
<Clark Conn PA-C - Last Filed: 05/03/25 17:47>
Heart Failure Risk
Heart Failure Risk Score: Not Applicable
Course
<Clark Conn PA-C - Last Filed: 05/03/25 17:47>
Orders/Labs/Results
Orders:
Orders
05/03/25 14:28
Electrocardiogram (*1) Urgent
Reason for Study: Shortness of Breath
EKG- Treatment ONCE
05/03/25 15:14
CR Chest Portable - 1 View Urgent
Comment:
Reason For Exam: sob
Reason Study Needs to be Portable: Patient Unstable
05/03/25 15:35
Type+Screen Urgent
COVID-19 Antigen Urgent
Source: Nasal Swab
Complete Blood Count/With Diff Urgent
Comprehensive Metabolic Panel Urgent
NT-proBNP Urgent
Troponin I Urgent
Influenza A+B Rapid Molecular Urgent
LACI Source: Nasal Swab
Specimen Description:
05/03/25 15:43
Prothrombin Time Urgent
05/03/25 17:16
Furosemide [Lasix] 40 mg IV NOW STA
05/03/25 17:17
Potassium Chloride Powder [Klor-Con] 40 meq PO NOW STA
Abnormal Lab Results
05/03/25 05/03/25
15:35 15:43
MCHC 30.8 L g/dL
(33.0-37.0)
RDW 18.7 H %
(11.5-14.5)
Abs Immat Gran (auto) 0.1 H 10^3/uL
(0-0.05)
Absolute Lymphs (auto) 0.6 L 10^3/uL
(1.2-3.4)
Absolute Monos (auto) 0.8 H 10^3/uL
(0.1-0.6)
Immature Gran % 0.7 H %
(0-0.5)
Neutrophils % 78.8 H %
(42.2-75.2)
Lymphocytes % 8.6 L %
(20.5-51.1)
Monocytes % 11.0 H %
(1.7-9.3)
PT 34.3 H Sec
(11.4-14.6)
Sodium 127 L D mmol/L
(135-145)
Potassium 3.2 L mmol/L
(3.5-5.1)
Chloride 87 L mmol/L
(98-107)
BUN 39 H mg/dl
(7-17)
Creatinine 1.5 H mg/dL
(0.6-1.0)
Total Bilirubin 2.8 H mg/dl
(0.2-1.3)
AST 39 H U/L
(14-36)
Alkaline Phosphatase 217 H U/L
(38-126)
Troponin I 0.066 H* ng/ml
Total Protein 6.1 L g/dl
(6.3-8.2)
Albumin 3.4 L g/dl
(3.5-5.0)
05/03/25 15:35
05/03/25 15:35
Vital Signs
Initial and Last Documented VS:
Initial Vital Signs
Temp Pulse Resp BP Pulse Ox
98.2 F 106 18 91/49 88
05/03/25 14:26 05/03/25 14:26 05/03/25 14:26 05/03/25 14:26 05/03/25 14:26
Last Documented Vital Signs
Temp Pulse Resp BP Pulse Ox
98.2 F 83 16 94/60 95
05/03/25 14:26 05/03/25 16:45 05/03/25 16:45 05/03/25 16:00 05/03/25 16:45
<Hugo Nash MD - Last Filed: 05/03/25 17:23>
Orders/Labs/Results
Orders:
Orders
05/03/25 14:28
Electrocardiogram (*1) Urgent
Reason for Study: Shortness of Breath
EKG- Treatment ONCE
05/03/25 15:14
CR Chest Portable - 1 View Urgent
Comment:
Reason For Exam: sob
Reason Study Needs to be Portable: Patient Unstable
05/03/25 15:35
Type+Screen Urgent
COVID-19 Antigen Urgent
Source: Nasal Swab
Complete Blood Count/With Diff Urgent
Comprehensive Metabolic Panel Urgent
NT-proBNP Urgent
Troponin I Urgent
Influenza A+B Rapid Molecular Urgent
LACI Source: Nasal Swab
Specimen Description:
05/03/25 15:43
Prothrombin Time Urgent
05/03/25 17:16
Furosemide [Lasix] 40 mg IV NOW STA
05/03/25 17:17
Potassium Chloride Powder [Klor-Con] 40 meq PO NOW STA
Abnormal Lab Results
05/03/25 05/03/25
15:35 15:43
MCHC 30.8 L g/dL
(33.0-37.0)
RDW 18.7 H %
(11.5-14.5)
Abs Immat Gran (auto) 0.1 H 10^3/uL
(0-0.05)
Absolute Lymphs (auto) 0.6 L 10^3/uL
(1.2-3.4)
Absolute Monos (auto) 0.8 H 10^3/uL
(0.1-0.6)
Immature Gran % 0.7 H %
(0-0.5)
Neutrophils % 78.8 H %
(42.2-75.2)
Lymphocytes % 8.6 L %
(20.5-51.1)
Monocytes % 11.0 H %
(1.7-9.3)
PT 34.3 H Sec
(11.4-14.6)
Sodium 127 L D mmol/L
(135-145)
Potassium 3.2 L mmol/L
(3.5-5.1)
Chloride 87 L mmol/L
(98-107)
BUN 39 H mg/dl
(7-17)
Creatinine 1.5 H mg/dL
(0.6-1.0)
Total Bilirubin 2.8 H mg/dl
(0.2-1.3)
AST 39 H U/L
(14-36)
Alkaline Phosphatase 217 H U/L
(38-126)
Troponin I 0.066 H* ng/ml
Total Protein 6.1 L g/dl
(6.3-8.2)
Albumin 3.4 L g/dl
(3.5-5.0)
05/03/25 15:35
05/03/25 15:35
Vital Signs
Initial and Last Documented VS:
Initial Vital Signs
Temp Pulse Resp BP Pulse Ox
98.2 F 106 18 91/49 88
05/03/25 14:26 05/03/25 14:26 05/03/25 14:26 05/03/25 14:26 05/03/25 14:26
Last Documented Vital Signs
Temp Pulse Resp BP Pulse Ox
98.2 F 83 16 94/60 95
05/03/25 14:26 05/03/25 16:45 05/03/25 16:45 05/03/25 16:00 05/03/25 16:45
Williamlt;Clark Conn PA-C - Last Filed: 05/03/25 17:47>
MDM/Problems Addressed
Differential Diagnosis Includes:
Patient here with respiratory distress and increased work of breathing. History of CHF COPD A-fib. She had fall yesterday with multiple areas of ecchymosis which was evaluated at [facility].
Consider CHF exacerbation versus COPD versus anemia versus combination
Portable x-ray ordered she is currently requiring nasal cannula oxygen as she was hypoxic, 85% on arrival.
<Clark Conn PA-C - Last Filed: 05/03/25 17:47>
*Pulse Oximetry
SaO2: 96
Nasal Cannula flow liters per minute: 2
Oxygen Mode of Delivery: Room air
Patient hypoxic: no
*Critical Care Note
Total Time (30-74mins, 75-104mins- exclusive of procedures): Not Applicable
<Clark Conn PA-C - Last Filed: 05/03/25 17:47>
Update Note
Update Note:
Patient reevaluated blood pressure is stable. Chest x-ray with signs of CHF BNP greater than 27,000. Discussed with emergency room attending saw the patient as well. Lasix ordered. Will admit for acute heart failure
ED Attending Note
<Clark Conn PA-C - Last Filed: 05/03/25 17:47>
-
Portions of this chart may have been created with voice recognition software.� Occasional wrong word or��sound alike� substitutions may have occurred due to the inherent limitations of voice recognition software.
<Hugo Nash MD - Last Filed: 05/03/25 17:23>
ED Attending Note
Patient seen and examined by attending physician: Yes
ED Attending Note:
I have seen and evaluated the patient with a [id number] encounter. I have spoken to the advance practicer provider and involved in the medical history, the physical exam, medical decision making.
Evaluation and management service: agree unless noted differently below.
Results interpretation: agree unless noted differently below.
Focused HPI: 79-year-old female with a past medical history of COPD, hypertension, hyperlipidemia, atrial fibrillation, CHF who presents to the emergency room for evaluation of shortness of breath. Of note, patient just hospitalized for right lower
extremity cellulitis. She says that over the past few days since discharge has had increasing shortness of breath. She has noticed increased welling in the legs. She denies any cough. Denies fever or chills. Denies any chest pain.
Physical exam: Awake and alert. Nontoxic-appearing. Blood pressure soft 91/49 during initial triage however blood pressure normal on my assessment. Heart rate in the 80s during my assessment after some triage tachycardia. She has no tachypnea
but mild hypoxia 88% requiring 2 L nasal cannula. No fever. She does have bilateral lower extremity edema. Breath sounds are diminished at the lung bases bilaterally.
Medical Decision Makin-year-old female with recent admission for right leg cellulitis presents with increasing shortness of breath. Vitals and exam are as above. Clinically she appears volume overloaded suspect likely CHF. PE always a
consideration in the setting of recent hospitalization but patient is on Coumadin and INR is therapeutic making this very unlikely especially in the absence of chest pain and with alternate etiology more likely on exam. Labs here were significant
for BUTCH likely cardiorenal�creatinine 1.5 today from discharge value of 1.1. LFTs marginally abnormal likely on the basis of congestion. proBNP markedly elevated greater than 27,000 with marginal troponin elevation; chest x-ray shows pulmonary
edema with cardiomegaly and pleural effusion. Overall testing supports diagnosis of CHF. Will provide some IV diuresis. Will need to monitor vital signs closely. Admit for continued treatment. PA discussed with hospitalist.
Discharge Plan
Departure
Patient Disposition: Admit
Date of Disposition: 05/03/25
Time of Disposition: 17:47
Presentation/result/management discussed w/ accepting MD/DO: Hospitalist
Discharge Problem:
CHF (congestive heart failure)
Prescriptions:
No Action
atorvastatin [Lipitor] 20 mg Tablet
20 mg PO DAILY
acetaminophen [Tylenol] 325 mg Tablet
650 mg PO Q4HPRN PRN (Reason: MILD PAIN)
ascorbic acid (vitamin C) [Vitamin C] 500 mg Tablet
1,000 mg PO QPM
warfarin [Jantoven] 2 mg tablet
2.5 mg PO QPM
aspirin 81 mg Tablet,Delayed Release (Dr/Ec)
81 mg PO DAILY
furosemide 20 mg Tablet
60 mg PO BID
metoprolol tartrate 25 mg tablet
25 mg PO BID
Patient Comments:
per patient, takes 25mg BID
fluticasone propion-salmeterol 113 mcg-14 mcg/actuation Aero Powdr Breath Act W/Sensor
1 inh INHALATION R BID
gabapentin 300 mg capsule
300 mg PO BID
Camzyos 5 mg Capsule
10 mg PO DAILY Qty: 30 0RF
albuterol sulfate 90 mcg/actuation Hfa Aerosol Inhaler
2 puff INHALATION R Q6HPRN PRN (Reason: SHORTNESS OF BREATH)
(DME) Contour Next Test Strips Strip
Qty: 60 0RF
Rx Instructions:
Pt Testing 2 times a day
(DME) lancets [Microlet Lancet] Misc
Qty: 60 0RF
Rx Instructions:
Pt testing 2 times a day
metformin 500 mg Tablet
500 mg PO BID@0800,1700 30 Days Qty: 60 0RF
ciprofloxacin HCl 500 mg tablet
500 mg PO BID 10 Days Qty: 20 0RF
Referrals:
UNKNOWN - PT DOES,NOT KNOW [Family Provider]
Interventions
Interventions:
*General Assessment Last Done: 05/03/25 14:26
*Neglect/Abuse Screening Last Done: 05/03/25 14:26
*ED COVID-19 Vaccine History Last Done: 05/03/25 15:00
*ED Influenza Vaccine History Last Done: 05/03/25 15:00
[facility] Risk Assessment Tool Last Done: 05/03/25 15:00
*Risk Screen - Suicide (C-SSRS) Last Done: 05/03/25 15:41
ED- Cardiac Assessment Last Done: 05/03/25 15:00
ED- Pulmonary Assessment Last Done: 05/03/25 15:00
Discharge Date and Time
Print Language: CITIZEN OF [place]
[2025-05-03 16:06] LABS: Hematocrit 46.1 % (37.0-47.0); Hemoglobin 14.2 g/dL (12.0-16.0); Mean Corp Hgb Conc. 30.8 g/dL (33.0-37.0); Mean Corpuscular Volume 90.0 fL (81.0-99.0); Nucleated Red Blood Cells % 0 %; Platelet Count 150 10^3/uL (130-400); Red Cell Dist. Width 18.7 % (11.5-14.5)
[2025-05-03 16:18] LABS: INR 3.36; PT 34.3 Sec (11.4-14.6)
[2025-05-03 16:20] LABS: COVID-19 Antigen Negative (Negative)
[2025-05-03 16:34] LABS: ALT (SGPT) 21 U/L (0-35); AST (SGOT) 39 U/L (14-36); Albumin 3.4 g/dl (3.5-5.0); Alkaline Phosphatase 217 U/L (38-126); Blood Urea Nitrogen 39 mg/dl (7-17); Calcium 8.6 mg/dl (8.4-10.2); Carbon Dioxide 30 mmol/L (22-30); Chloride 87 mmol/L (98-107); Estimated Creatinine Clearance 29 ml/min; Glucose 94 mg/dl (70-99); Potassium 3.2 mmol/L (3.5-5.1); Sodium 127 mmol/L (135-145); Total Protein 6.1 g/dl (6.3-8.2); eGFR 35.45
[2025-05-03 16:46] LABS: Troponin I 0.066 ng/ml
--- NOTE | 2025-05-03 17:53 | HPS.HSE ---
Family Physician
-
Family Physician: NOT KNOW UNKNOWN - PT DOES
Chief Complaint
-
Shortness of Breath
History of Present Illness
Patient is a 79 y/o female with a complicated past medical history noted below who was recently admitted to [facility] from Apr 21 to May 01 for recurrent cellulitis. That hospitalization was complicated by persistent atrial fibrillation for which plan
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 Patient was also treated for acute heart failure with IV diuretics, and noted discharge weight of 66.9 kg (147 lbs). Patient presents today with increased
shortness of breath. She reports worsening lower extremity edema, and weight gain of 6lbs since discharge.
Medical History
Past Medical History
Past Medical History: Reports Other
Additional Past Medical History:
Nonobstructive Coronary Artery Disease
Chronic HFpEF
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
Endocarditis s/p Mitral Valve Replacement
Paroxysmal Atrial Fibrillation
Hx Tachybrady Syndrome
Left Atrial Appendage Thrombus
Essential Hypertension
Hyperlipidemia
Diabetes Mellitus, Type II
COPD
GERD
Past Surgical History: Reports Other
Additional Past Surgical History:
Bioprosthetic Mitral Valve Replacement
Appendectomy
Left Knee Surgery
Social History
Tobacco: Former Smoker
Alcohol: Occasional
Drug: None
Personal: Single
Living: Alone
Employment: Employed
Family History
Family History: Not pertinent
Allergies / Home Medications
Allergies reflects when Allergies were last updated in [employer].
Home Medications with original date entered in [employer]
Allergy/Medication List:
Allergies
Allergy/AdvReac Type Severity Reaction Status Date / Time
No Known Allergies Allergy Verified 04/21/25 09:25
Home Medications
atorvastatin 20 mg tablet (Lipitor) 20 mg PO DAILY High Cholesterol 06/21/23
acetaminophen 325 mg tablet (Tylenol) 650 mg PO Q4HPRN PRN MILD PAIN 08/23/24
ascorbic acid (vitamin C) 500 mg tablet (Vitamin C) 1,000 mg PO QPM Supplement 08/23/24
warfarin 2 mg tablet (Jantoven) 2.5 mg PO QPM Blood Clot Prevention/Tx 10/03/24
Held on 05/01/25. Instructions: Hold evening doses on 05/01, follow-up with warfarin clinic after that for further instructions
aspirin 81 mg tablet,delayed release 81 mg PO DAILY Heart Disease/Condition 01/20/25
furosemide 20 mg tablet 60 mg PO BID Fluid Retention/Swelling 01/20/25
metoprolol tartrate 25 mg tablet 25 mg PO BID Heart Disease/Condition 01/20/25
gabapentin 300 mg capsule 300 mg PO BID moderate pains 02/22/25
mavacamten 5 mg capsule (Camzyos) 10 mg (2 x 5 mg) PO DAILY Heart disease/condition #30 caps 02/24/25
fluticasone 113mcg-salmeterol 14mcg/actuation breath act,powder sensor 1 inh inhalation R BID 03/16/25
albuterol sulfate 90 mcg/actuation aerosol inhaler 2 puff inhalation R Q6HPRN PRN SHORTNESS OF BREATH 04/21/25
ciprofloxacin HCl 500 mg tablet 500 mg PO BID 10 days #20 tabs 05/01/25
metformin 500 mg tablet 500 mg PO BID@0800,1700 30 days #60 tabs 05/01/25
Review of Systems
-
History Source: Patient
A 12 point ROS was completed and negative except as noted: Yes
Constitutional: Denies Fever
Respiratory: Reports Trouble Breathing
Cardiac: Denies Chest Pain
Physical Exam
Vital Signs
Vital Signs
Temp Pulse Resp BP Pulse Ox
98.2 F 83 16 130/71 95
05/03/25 14:26 05/03/25 16:45 05/03/25 16:45 05/03/25 16:00 05/03/25 16:45
Physical Exam
General: Well Developed and Well Nourished
HEENT: Anicteric, Moist mucous membranes and Oxygen (Nasal Cannula)
Respiratory: Non Labored Respirations and Decreased Breath Sounds (Bilateral bases)
Cardiac: S1/S2, Irregular Rhythm and Murmur; No Tachycardia
GI: Soft and Non Tender
Rectal: Deferred by Provider
Musculoskeletal: No Clubbing, No Cyanosis and Other (Pitting edema bilateral lower extremities)
Skin: Warm and Dry
Neuro: Awake, Alert, Oriented and Nonfocal/grossly intact
Psych: Calm
Laboratory Results
-
05/03/25 15:35
05/03/25 15:35
Laboratory Results
PT 34.3 Sec (11.4-14.6) H 05/03/25 15:43
INR 3.36 05/03/25 15:43
Total Bilirubin 2.8 mg/dl (0.2-1.3) H 05/03/25 15:35
AST 39 U/L (14-36) H 05/03/25 15:35
ALT 21 U/L (0-35) 05/03/25 15:35
Alkaline Phosphatase 217 U/L (38-126) H 05/03/25 15:35
Troponin I 0.066 ng/ml H* 05/03/25 15:35
Chest X-Ray:
Cardiomegaly with findings of pulmonary edema, similar to prior. There is a small left pleural effusion which has slightly decreased in size from prior.
Data Reviewed
-
Lab Data: Labs Reviewed by me
Old Records: Reviewed
Impression/Plan
-
Acute Hypoxic Respiratory Insufficiency secondary to Acute Heart Failure
-Continue supplemental oxygen
Acute on Chronic HFpEF
-Consult Cardiology
-Continue Lasix 40mg IV BID
-Monitor Daily Weights
Elevated Troponin, suspect non-ischemic myocardial injury in setting of heart failure
-Continue to trend
Hyponatremia, suspect hypervolemic hyponatremia
-Continue diuretics
-Continue fluid restriction
-Recheck sodium level in AM
Elevated Creatinine / Elevated LFTS, likely related to acute heart failure
-Continue to trend
Persistent Atrial Fibrillation with Left Atrial Appendage Thrombus noted on recent YUE
-INR currently slightly supratherapeutic likely related to cipro - Hold warfarin for tonight and repeat INR in AM
-Continue metoprolol for rate control
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
-Patient maintained on Camzyos which someone would need to bring from home
Nonobstructive Coronary Artery Disease
-Continue aspirin
-Continue atorvastatin
Diabetes Mellitus, Type II
-Hold metformin
-Monitor sugars and continue coverage insulin
COPD
-Continue fluticasone-salmeterol
Recent Right Lower Extremity Cellulitis
-Complete previously prescribed ciprofloxacin (last day May 11)
Hx Endocarditis s/p Mitral Valve Replacement
DVT proph: Warfarin
Code Status: Full Code
[2025-05-03] MEDS: LASIX 40 MG IV (18:12)
[2025-05-03] MEDS: KLOR-CON 40 MEQ PO (18:12)
--- NOTE | 2025-05-03 18:27 | W.PN.UPDATE ---
Update Note
Progress Note Update
This note serves as an addendum to the H&P by storehouse clerk Tori PLEITEZ
HPI
79F HX AF on warfarin, recent YUE POS MARIANELA thrombus, chr HFpEF [id number], known TMVR seen at ER
- evaluation of shortness of breath.
- discharged from this hospital 2 days ago for cellulitis to the leg.
- She has been feeling weak since discharge.
- fell twice yesterday and was at [facility] yesterday had CTs performed which were negative.
- found that her breathing was off then and they recommended she stay she cannot stay if she had a dog to take care of her.
- She presents with Dyspnic at rest and minimal exertion.
- increased leg swelling.
Relevant VS
Temp Pulse Resp BP Pulse Ox
98.2 F 86 21 130/71 96
05/03/25 14:26 05/03/25 18:15 05/03/25 18:15 05/03/25 18:12 05/03/25 18:15
05/03/25
15:00 05/03/25
17:00
Blood pressure 91/67 111/77
04/29/25
06:00 05/01/25
06:00 05/03/25
15:00
Actual Weight 70.562 kg 66.905 kg 69.7 kg by
PE
Gen: NAD
HEENT: anicteric ,wearing NC O2
Neck:supple
Lungs: symmetric AE , no rales
Cor: irregular
Abdomen:�soft NT NG NRT
MIXER DIAMOND POWDER: AAO3
MS: b/l Jayshree edema
Psych: Nl mood and affect
Relevant Data
05/01/25 05/03/25 05/03/25
07:22 15:35 15:43
WBC 7.4
Hgb 14.2
Plt Count 150
INR 3.36
Sodium 135 127 L D
Potassium 3.2 L
Chloride 87 L
BUN 39 H
Creatinine 1.1 H 1.5 H
eGFR 51.43 35.45
Total Bilirubin 2.8 H
AST 39 H
Alkaline Phosphatase 217 H
Troponin I 0.066 H*
[id number] Pept > 19919
EKG
ATRIAL FIBRILLATION
RIGHTWARD AXIS
ST and T WAVE ABNORMALITY, CONSIDER INFERIOR ISCHEMIA
ST and T WAVE ABNORMALITY, CONSIDER ANTEROLATERAL ISCHEMIA
ABNORMAL ECG
WHEN COMPARED WITH ECG OF 29-Apr-2025 06:27,
NO SIGNIFICANT CHANGE WAS FOUND
Confirmed by ADRIEN SWIFT MD ([id number]) on 05/03/2025 2:51:43 PM
04/29/25 YUE
1. Normal left ventricular size, and systolic function. Estimated LVEF 50-55%.
2. Aortic valve sclerosis without stenosis. Mild aortic regurgitation.
3. S/p [id number] TMVR. No significant regurgitation. Mean gradient 4 mmHg.
4. Right ventricle is mildly dilated with mildly reduced systolic function.
5. Moderate tricuspid regurgitation.
6. Thrombus is visualized in the MARIANELA.
7. Compared to YUE 03/16/25: thrombus is now visualized in the MARIANELA.
CXR
Cardiomegaly with findings of pulmonary edema, similar to prior.
There is a small left pleural effusion which has slightly decreased in size from prior.
Last hospitalist admission: 04/21/25 -05/01/25
ASSESSMENT & PLAN
Pending Rx reconciliation
Acute on chronic HFpEF:
- Associated NYHA class III/IV dyspnea due to pulmonary edema and hypoxia with edematous lower extremities
- Also precipitated by persistent AF
- IV Lasix to 60mg BD daily
- daily I's and O's and daily weights
- Current Wt is 69.7 ( DC wt on 05/01 was 68.3 kg)
- Continue FR 1.2L
- on Metoprolol to tartrate 25 mg p.o. twice daily
-
HX HOCM
- Uses Camzyos for hypertrophic cardiomyopathy, however has been unable to have anyone bring her home medication
BUTCH - suspect CRS
- IV Diuresis and FU Cr
- Hold Metformin ( new from last admission )
Essential HTN
- continue BB
Persistent AF
- Now back in A-fib, heart rate now improved to around 90
- 04/29, however MARIANELA thrombus was identified and so cardioversion was aborted on last admission ( postponed for YUE/cardioversion )
- c/w Amiodarone
- c/w BB with metoprolol tartrate 25 mg twice daily
- Trending down INR 3.36 - Goal INR goal 2-3
- FU INR in AM
- Resume warfarin INR < 3
DMT2
- Hemoglobin A1c 6.9%
- Hold metformin 500 mg
- add ISS low
COPD
- continue Fluticasone/Salmeterol
- prn Nebs
GERD
DVT Px: INT 3.3
Full code
IP TLM
[2025-05-03 20:06] LABS: Troponin I 0.063 ng/ml
[2025-05-03] MEDS: ROXICODONE 5 MG PO (20:22)
[2025-05-03 21:34] LABS: Glucose - Point of Care 131 mg/dl (70-99)
[2025-05-03] MEDS: ADVAIR HFA 115/21 MCG INHALER 2 PUFF INH (21:56)
[2025-05-03] MEDS: NEURONTIN 300 MG PO (21:58)
[2025-05-03] MEDS: CIPRO 500 MG PO (21:58)
[2025-05-03] MEDS: LOPRESSOR PO (21:59)
--- NOTE | 2025-05-03 22:43 | PTCARENOTE ---
Pt walked from stretcher to bed w/ x1 assist. VSS, no c/o pain, on 2L O2. R thigh and behind R knee cleansed with saline, foams applied. Lopressor held, SBP <120. Pt placed on bed alarm and instructed to call to use bsc. Pt oriented to room, call
burris within reach, and plan of care ongoing.
[2025-05-04] VITALS (7 sets, daily range): BP systolic 67–128; BP diastolic 53–71; PULSE 104–108; O2SAT 96; BMI 28.4
[2025-05-04] MEDS: ROXICODONE 5 MG PO ×2 (05:42→17:50)
--- NOTE | 2025-05-04 07:09 | W.PN.HOSP.TC ---
Today's Communication/Plan
-
Cardiology consult
ID consult
started on Lasix 80 mg IV BID (Lasix 60 mg PO BID prior to admission.)
continued on beta-viet and Camzyos
Lopressor to 50 mg BID reduced the dose back to 25 mg BID and add midodrine 2.5 mg TID due to orthostatic
Warfarin resumed as INR less than 3 today
hold off on further doses of metolazone for now due to hyponatremia , hypokalemia , BUTCH
Assessment / Plan
Assessment / Plan
Patient is a 79 y/o female with a complicated past medical history noted below who was recently admitted to [facility] from Apr 21 to May 01 for recurrent cellulitis. That hospitalization was complicated by persistent atrial fibrillation for which plan
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 Patient was also treated for acute heart failure with IV diuretics, and noted discharge weight of 66.9 kg (147 lbs). Patient presents today with increased
shortness of breath. She reports worsening lower extremity edema, and weight gain of 6lbs since discharge.
Plan:
#Decompensated HFpEF
Has known HOCM for which she takes beta-viet and Camzyos
Started on IV Lasix 60 mg twice daily on arrival, continued on beta-viet and Camzyos held
leg swelling improving with diuresis
monitor BMP + I's and O's + weights
Camzyos was held , resumed per cardiology discretion
Continue on telemetry and monitor SpO2
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
Creatinine up to 1.5--1.6
Suspect that this will improve with IV diuresis as above
Trend BMP and UOP
avoid nephrotoxins
#Nonpurulent cellulitis, [employer].
Recently discharged on levofloxacin
Wound with vesicle appearance and drainage
Noted to look worse by cardiology
consulted ID for consideration on different antibiotic course.
Diet -- Diabetic, sodium restricted
DVT -- Home warfarin
Code -- Full
Dispo -- PT consulted
Discussed with cardiology
Anticipated Discharge: > 48 hours
Subjective/Interval History
-
Date of Service: May 04, 2025
No overnight event, Her shortness of breath has improved since the admission. She denied chest pain ,palpitation , light headedness. She noticed that her leg swelling has been improving. she was on 2L oxygen this morning and off the oxygen before
noon.
Objective Data
-
Labs:
Laboratory Results
05/04/25
07:06
WBC Pending
Hgb Pending
Hct Pending
Plt Count Pending
PT Pending
INR Pending
Sodium Pending
Potassium Pending
Chloride Pending
Carbon Dioxide Pending
BUN Pending
Creatinine Pending
Glucose Pending
Calcium Pending
Vital Signs:
Vital Signs
Temp Pulse Resp BP Pulse Ox
98.7 F 95 17 102/53 95
05/04/25 03:00 05/04/25 03:00 05/04/25 03:00 05/04/25 03:00 05/04/25 03:00
I&O
05/03/25 05/04/25 05/05/25
06:59 06:59 06:59
Intake Total 240 / 240
Balance 240 / 240
Review of Systems
-
History Source: Patient
Respiratory: Reports No Symptoms
Cardiac: Reports No Symptoms
Abdomen/GI: Reports No Symptoms
Genitourinary: Reports No Symptoms
Physical Exam
-
General: Well Developed, Well Nourished and No Apparent Distress
HEENT: Normocephalic, Atraumatic and Moist Mucous Membranes
Respiratory: Clear to Auscultation
Cardiac: S1/S2 and Irregular Rhythm
GI: Soft, Nontender and Nondistended
Musculoskeletal: Edema, Right Lower Extrem and Edema, Left Lower Extrem
Skin: Warm, Dry and Rash (erythema and blistering on right inner thigh)
Neuro: Awake, Alert, Oriented and AO x 3
Psych: Calm
[2025-05-04 07:45] LABS: INR 2.57; PT 27.1 Sec (11.4-14.6)
[2025-05-04] MEDS: LIPITOR 20 MG PO (07:59)
[2025-05-04] MEDS: ASPIR LOW (ENTERIC COATED) 81 MG PO (07:59)
[2025-05-04] MEDS: NEURONTIN 300 MG PO ×2 (07:59→20:45)
[2025-05-04] MEDS: LOPRESSOR 25 MG PO ×2 (08:00→20:43)
[2025-05-04] MEDS: CIPRO 500 MG PO (08:01)
[2025-05-04] MEDS: LASIX 60 MG IV (08:01)
[2025-05-04 08:05] LABS: Blood Urea Nitrogen 42 mg/dl (7-17); Calcium 8.4 mg/dl (8.4-10.2); Carbon Dioxide 33 mmol/L (22-30); Chloride 90 mmol/L (98-107); Estimated Creatinine Clearance 26 ml/min; Glucose 90 mg/dl (70-99); Magnesium 2.2 mg/dl (1.6-2.3); Potassium 3.9 mmol/L (3.5-5.1); Sodium 130 mmol/L (135-145); eGFR 32.81
[2025-05-04 08:06] LABS: Hematocrit 44.9 % (37.0-47.0); Hemoglobin 13.5 g/dL (12.0-16.0); Mean Corp Hgb Conc. 30.1 g/dL (33.0-37.0); Mean Corpuscular Volume 90.7 fL (81.0-99.0); Platelet Count 122 10^3/uL (130-400); Red Cell Dist. Width 18.6 % (11.5-14.5)
[2025-05-04 08:27] LABS: Glucose - Point of Care 173 mg/dl (70-99)
[2025-05-04] MEDS: ADVAIR HFA 115/21 MCG INHALER 2 PUFF INH ×2 (09:58→19:52)
--- NOTE | 2025-05-04 11:45 | CON.CAR ---
Addendum entered and electronically signed by Placido Evans MD 05/04/25 13:11:
Patient seen, interviewed and examined by me.
Well-appearing, mild resp distress
Irregular rate and rhythm with normal S1 and S2, no S3 no S4. There is a grade 1/6 apical holosystolic murmur and no rubs. PMI is normally placed.
Lungs with reduced breath sounds at both bases and bibasilar rales without wheezes rales or rhonchi.
Abdomen soft nontender nondistended with normoactive bowel sounds
Extremities show +3 edema bilaterally LE with no clubbing or cyanosis.
Neurologic exam is grossly nonfocal.
PCP: Antonieta Clark MD
CDY: Yahaira Evans MD locally and Dr. Pat at [facility] ([phone])
Assessment:
Admitted with acute hypoxic respiratory insufficiency and acute HF 05/03/2025
Recent admission for recurrent RLE cellulitis, acute HF and recurrent A-fib 04/21/2025 until 05/01/2025
Recent admission for PVI and posterior wall ablation 03/16/2025
Recent admission for RLE cellulitis 03/04/2025 until 03/09/2025
Recent admission for acute HF 02/22/2025 until 02/26/2025
Recurrent RLE cellulitis
Acute on chronic HFpEF
Mitral valve disease
s/p bioprosthetic mitral valve replacement 2014
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
No longer evidence of MARIANELA thrombus on repeat YUE 10/06/2024
Concern for possible MARIANELA thrombus by YUE 01/20/2025
Persistent MARIANELA thrombus by YUE 04/29/2025Eliquis transitioned to warfarin for LA smoke by YUE 08/13/24
Paroxysmal atrial fibrillation and atypical atrial flutter
s/p PVI 04/2023
s/p PVI with PFA, posterior wall ablation 03/16/2025
Recurrent atrial flutter noted on ECG 04/26/2025HCM, severe concentric LVH, on Camzyos, dosing changes managed at [facility]
PHTN
s/p RHC at [facility] 12/2023Nonobstructive CAD by cardiac catheterization 05/2022
h/o endocarditis
Hypertension
Hyperlipidemia
COPD
Hyponatremia
Hypokalemia
BUTCH
YUE 08/13/24: [facility] at [place] study, EF 65%, moderately dilated RV with mild RV hypokinesis, severely dilated LA with evidence of spontaneous echo contrast and definite MARIANELA thrombus, bioprosthetic mitral valve with marked thickening and
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
YUE 10/06/2024: EF 60 to 65%, severe concentric LVH, mildly dilated RV and mildly reduced RV systolic function, some spontaneous echo contrast seen in the left atrial cavity, but no left atrial appendage thrombus, bioprosthetic mitral valve with
significant thickening and calcification, restricted leaflet motion and the valve visually appears to have moderate to severe stenosis, mean mitral valve gradient 11 mmHg, moderate to severe MR with flow coming into the left atrial appendage, mild
to moderate aortic regurgitation, moderate TR
YUE 01/20/25: EF 55 to 60%, severe LVH, aortic sclerosis, mild to moderate AR, well-seated bioprosthetic valve in mitral position with mean mitral gradient 6 mmHg, no MR, again spontaneous echo contrast and possible thrombus in left atrial appendage
Echo 02/22/2025: EF 67% without obvious LVOT gradient, s/p TMVR with previous surgical MVR peak/mean 22/11 mmHg, no MR, mild to moderate aortic regurgitation, dilated RV with hypokinesis, severe TR with PAP 74 mmHg
YUE 04/29/2025: EF 50-55%, thrombus visualized in MARIANELA, mild AR, s/p valve in valve TMVR, mean gradient 4 mmHg, moderate TR
Plan:
She returns to [facility] with increasing dyspnea and is found to be in exacerbation of congestive heart failure, heart failure with preserved ejection fraction. Additionally found with BUTCH.
Her rates in atrial fibrillation, which has been persistent, are not rapid.
- Acutely:
- IV Lasix diuresis with Lasix 80 mg BID and low threshold to add a dose of metolazone if adequate diuresis is not obtained with Lasix alone
- While it is likely that ongoing AF is contributing to exacerbation of CHF, she is rate controlled at present and we cannot move towards rhythm control given finding of MARIANELA clot on YUE 04/29/2025
Will increase metoprolol to tartrate from 25 mg twice daily to 50 mg twice daily (consideration for changing to succinate)
- Maintain warfarin with goal INR increased to 2.5-3.5 and eventually (6 weeks) repeat YUE to assess for resolution of left atrial appendage thrombus
- If and when left atrial appendage thrombus resolves there can be further consideration for rhythm control options such as adding back amiodarone or even moving towards repeat mapping and ablation but I think she would require amiodarone in
addition long-term to best maintain sinus rhythm
- Maintain mavacamten for HOCM
Mavacamten may promote clinical HF by reducing left ventricular systolic function
By echocardiographic imaging, LVEF 2023 was noted to be as high as 65-70%, subsequently 60-65% and more recently 50-55% (sedated for YUE)
Will order transthoracic ECHO to reassess.
-Patient came to the ER yesterday with increased SOB and an episode of near syncope prompting admission and cardiology consultation. This is the patient's fifth admission in the last 2 months for issues including acute HF, recurrent atrial
arrhythmia and recurrent cellulitis. Most recently patient was admitted from 04/21/2025 until 05/01/2025 initially with RLE cellulitis and then cardiology was consulted for recurrent HF. Patient has a complex PMH including a tissue MVR in 2014
followed by bioprosthetic MS leading to TMVR at [facility] on 10/15/2024. In the interim the patient was diagnosed with HCM with severe concentric LVH and was started on Camzyos that is managed by Dr. Pat at [facility]. Patient has also had issues with
atrial arrhythmia and had PVI in 2022 and then due to recurrent atrial arrhythmia had PVI and posterior wall ablation 03/16/2025. When the patient presented for cellulitis on 04/21/2025 she was noted to be in atrial flutter, but cardiology was not
initially consulted. Patient felt that the atrial flutter recurred only a day prior to admission. Cardiology started amiodarone at that time and patient was set up for a YUE/CV on 04/29/2025 that showed evidence of a persistent MARIANELA thrombus.
Patient previously had MARIANELA thrombus seen on YUE for 425 and then on a follow-up YUE on 09/28/2024 there is no longer evidence of thrombus. Patient then noted to have recurrence of possible MARIANELA thrombus on YUE 01/20/2025 and again as noted there was
persistent thrombus on 04/29/2025. Due to persistent thrombus the CV was canceled and amiodarone was stopped. Patient was discharged to home with the plan for rate control using Lopressor 25 mg BID and warfarin was continued. INRs have been
largely therapeutic during her recurrent admissions over the last 2 months. Patient says that while driving home from the hospital on 05/01/2025 she had fecal incontinence described as explosive diarrhea and when she got herself into her house she
stepped into the shower to clean herself up and slipped and fell and hit her head prompting a call to 911 and she was taken to [facility] because she lives in [place]. CT of the head was negative and patient was recommended observation, but signed
herself out to go home because she was tired of being in the hospital setting. Over the last 2 days the patient felt increasing SOB and right greater than left LE swelling and they were walking in her home last night at she had an episode of near
syncope and SOB prompting her to come back to the ER. Weight is up 4 lbs and proBNP is greater than 27,000, her last proBNP on 04/02/2025 was only 5580. Patient noted to be hypoxic, but does not follow with a replenishment merchandising associate and does not use
supplemental oxygen at home.
-ECG reviewed by me looks like A-fib with controlled ventricular response
-Telemetry reviewed by me shows ongoing A-fib with HRs generally controlled rate at 80 to 90 bpm
-proBNP is greater than 27,000 and CXR is consistent with acute HF. Will attempt to diurese with Lasix 80 mg IV BID. Patient was taking Lasix 60 mg PO BID prior to admission.
-Of note patient was given a dose of metolazone 2.5 mg x 1 on 04/29/2025 and diuresed well with this, but now has evidence of hyponatremia, hypokalemia and BUTCH. Will hold off on further doses of metolazone for now
-Labs reviewed by me, Cre is 1.6 on 05/04/2025. Will follow on a daily basis.
-EF preserved at 50 to 55% by echo 04/29/2025.
-Outpatient dose of Lopressor will be increased to 50 mg BID to help with ongoing rate control efforts
-Patient is not chronically on ELOINA/ARB/ARNI/SGLT2 inhibitor as her HF is primarily driven by HCM and valvular heart disease and due to BUTCH
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
-Patient also follows with Dr. Pat at [facility] for HCM and is chronically on Camzyos managed by their office. Patient's last acute HF admission in February seem to correlate with an up titration of her Camzyos to 10 mg daily, communication at that
time with Dr. Pat's office ended with the patient resuming her Camzyos at 10 mg daily and following up with their office. Patient did not bring her Camzyos to the hospital and we do not have it on formulary.
-Patient has a history of paroxysmal atrial fibrillation and flutter. Patient had a PVI in 2022 and then had PVI and posterior wall ablation 03/16/2025. Patient has recurrent atrial flutter as seen on ECG 04/26/2025. Patient remains in A-fib on my
review of telemetry 05/04/2025.
-Amiodarone started and stopped last admission due to persistent MARIANELA thrombus seen on YUE 04/29/2025
-INR is therapeutic at 2.57 on 05/04/2025. Warfarin 2.5 mg daily has been continued, this was her outpatient dose as well. Daily INR is ordered. INR goal is 2-3. Outpatient INRs managed by cardiology office with draws at [facility].
-Patient was previously on DOAC, but this was stopped due to concern for echo contrast and thrombus, patient transition to warfarin.
-Consider pulmonology consultation if hypoxia persist despite diuresis
-Patient has recurrent right thigh wounds and concerns for cellulitis. ID note from last admission reviewed by me and the painful nodules could be erythema nodosum and a biopsy with dermatology as an outpatient was suggested.
�
Original Note:
Consultation
Consultation Request
Date/Time Consultation Requested: 05/03/20252104
Date/Time Consultation Performed: 05/04/2025 at 1115
Requesting Provider: Dr. Harris
Performing Provider: Dr. Placido Evans
Reason for Consultation: Acute HF
Medical History
-
History of Present Illness:
Patient came to the ER yesterday with increased SOB and an episode of near syncope prompting admission and cardiology consultation. This is the patient's fifth admission in the last 2 months for issues including acute HF, recurrent atrial
arrhythmia and recurrent cellulitis. Most recently patient was admitted from 04/21/2025 until 05/01/2025 initially with RLE cellulitis and then cardiology was consulted for recurrent HF. Patient has a complex PMH including a tissue MVR in 2014
followed by bioprosthetic MS leading to TMVR at [facility] on 10/15/2024. In the interim the patient was diagnosed with HCM with severe concentric LVH and was started on Camzyos that is managed by Dr. Pat at [facility]. Patient has also had issues with
atrial arrhythmia and had PVI in 2022 and then due to recurrent atrial arrhythmia had PVI and posterior wall ablation 03/16/2025. When the patient presented for cellulitis on 04/21/2025 she was noted to be in atrial flutter, but cardiology was not
initially consulted. Patient felt that the atrial flutter recurred only a day prior to admission. Cardiology started amiodarone at that time and patient was set up for a YUE/CV on 04/29/2025 that showed evidence of a persistent MARIANELA thrombus.
Patient previously had MARIANELA thrombus seen on YUE for 425 and then on a follow-up YUE on 09/28/2024 there is no longer evidence of thrombus. Patient then noted to have recurrence of possible MARIANELA thrombus on YUE 01/20/2025 and again as noted there was
persistent thrombus on 04/29/2025. Due to persistent thrombus the CV was canceled and amiodarone was stopped. Patient was discharged to home with the plan for rate control using Lopressor 25 mg BID and warfarin was continued. INRs have been
largely therapeutic during her recurrent admissions over the last 2 months. Patient says that while driving home from the hospital on 05/01/2025 she had fecal incontinence described as explosive diarrhea and when she got herself into her house she
stepped into the shower to clean herself up and slipped and fell and hit her head prompting a call to 911 and she was taken to [facility] because she lives in [place]. CT of the head was negative and patient was recommended observation, but signed
herself out to go home because she was tired of being in the hospital setting. Over the last 2 days the patient felt increasing SOB and right greater than left LE swelling and they were walking in her home last night at she had an episode of near
syncope and SOB prompting her to come back to the ER. Weight is up 4 lbs and proBNP is greater than 27,000, her last proBNP on 04/02/2025 was only 5580. Patient noted to be hypoxic, but does not follow with a replenishment merchandising associate and does not use
supplemental oxygen at home.
PMH:
Recent admission for recurrent RLE cellulitis, acute HF and recurrent A-fib 04/21/2025 until 05/01/2025
Recent admission for PVI and posterior wall ablation 03/16/2025
Recent admission for RLE cellulitis 03/04/2025 until 03/09/2025
Recent admission for acute HF 02/22/2025 until 02/26/2025
Chronic HFpEF
Mitral valve disease
s/p bioprosthetic mitral valve replacement 2014
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
Spontaneous echo contrast in the left atrium and definite thrombus in the MARIANELA by YUE 08/13/2024
No longer evidence of MARIANELA thrombus on repeat YUE 10/06/2024
Concern for possible MARIANELA thrombus by YUE 01/20/2025
Persistent MARIANELA thrombus by YUE 04/29/2025
Eliquis transitioned to warfarin for LA smoke by YUE 08/13/24
Paroxysmal atrial fibrillation and atypical atrial flutter
s/p PVI 04/2023
s/p PVI with PFA, posterior wall ablation 03/16/2025
Recurrent atrial flutter noted on ECG 04/26/2025
HCM, severe concentric LVH, on Camzyos, dosing changes managed at [facility]
PHTN
s/p RHC at [facility] 12/2023
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
h/o endocarditis
Hypertension
Hyperlipidemia
COPD
Past Medical History
Past Medical History: Other (in HPI)
Past Surgical History: Appendectomy, Cardiac (Bioprosthetic mitral valve replacement 2014, TMVR at [facility] 10/15/2024) and Orthopedic
Social History
Tobacco: Former Smoker
Alcohol: Daily (1 light beer a day)
Drug: None
Personal: Single
Living: Alone
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
Family History
Family History: Reviewed & Not Pertinent
Allergies / Home Medications
Allergy/AdvReac Type Severity Reaction Status Date / Time
epinephrine Allergy NOVOCAIN Verified 05/03/25 21:12
WITH EPI
grass pollen Allergy Unknown Verified 05/03/25 21:12
Penicillins Allergy Unknown Verified 05/03/25 21:12
procaine (From Novocain) Allergy Unknown Verified 05/03/25 21:12
�Medication �Instructions �Recorded �Confirmed �Type
atorvastatin 20 mg tablet (Lipitor) 20 mg PO DAILY High Cholesterol 06/21/23 05/03/25 History
acetaminophen 325 mg tablet 650 mg PO Q4HPRN PRN MILD PAIN 08/23/24 05/03/25 History
(Tylenol)
ascorbic acid (vitamin C) 500 mg 1,000 mg PO QPM Supplement 08/23/24 05/03/25 History
tablet (Vitamin C)
warfarin 2 mg tablet (Jantoven) 2.5 mg PO QPM Blood Clot 10/03/24 05/03/25 History
Held on 05/01/25. Prevention/Tx
Instructions: Hold evening
doses on 05/01,
follow-up with warfarin
clinic after that for further
instructions
aspirin 81 mg tablet,delayed 81 mg PO DAILY Heart 01/20/25 05/03/25 History
release Disease/Condition
furosemide 20 mg tablet 60 mg PO BID Fluid 01/20/25 05/03/25 History
Retention/Swelling
metoprolol tartrate 25 mg tablet 25 mg PO BID Heart 01/20/25 05/03/25 History
Disease/Condition
gabapentin 300 mg capsule 300 mg PO BID moderate pains 02/22/25 05/03/25 History
mavacamten 5 mg capsule (Camzyos) 10 mg (2 x 5 mg) PO DAILY Heart 02/24/25 05/03/25 Rx
disease/condition #30 caps
fluticasone 113mcg-salmeterol 1 inh inhalation R BID 03/16/25 05/03/25 History
14mcg/actuation breath act,powder
sensor
albuterol sulfate 90 mcg/actuation 2 puff inhalation R Q6HPRN PRN 04/21/25 05/03/25 History
aerosol inhaler SHORTNESS OF BREATH
ciprofloxacin HCl 500 mg tablet 500 mg PO BID 10 days #20 tabs 05/01/25 05/03/25 Rx
metformin 500 mg tablet 500 mg PO BID@0800,1700 30 days 05/01/25 05/03/25 Rx
#60 tabs
Review of Systems
-
History Source: Patient
All other systems: Negative unless noted
Physical Exam
Vital Signs
Temp Pulse Resp BP Pulse Ox
98.3 F 86 16 128/71 96
05/04/25 07:30 05/04/25 10:01 05/04/25 10:01 05/04/25 08:00 05/04/25 07:30
GEN: No distress, awake, alert, oriented x3
HEENT: EOMI
LUNGS: 2 L NC. Dyspneic with conversation. Bibasilar rales without wheeze
CV: Atrial flutter on telemetry. Reg irreg, S1/S2, no murmur
EXT: +2 right worse than left LE edema. No clubbing, cyanosis or lesions B/L
NEURO: Gross non-focal
SKIN: Quarter sized lesions on the right inner thigh and right inner thigh skin is red and beefy
Lab Results
05/04/25 07:06
05/04/25 07:06
Troponin I Cancelled 05/04/25 07:30
[id number] Pept > 16509 pg/ml 05/03/25 15:35
Impression / Plan
-
PCP: Antonieta Clark MD
CDY: Yahaira Evans MD locally and Dr. Pat at [facility] ([phone])
Assessment:
Admitted with acute hypoxic respiratory insufficiency and acute HF 05/03/2025
Recent admission for recurrent RLE cellulitis, acute HF and recurrent A-fib 04/21/2025 until 05/01/2025
Recent admission for PVI and posterior wall ablation 03/16/2025
Recent admission for RLE cellulitis 03/04/2025 until 03/09/2025
Recent admission for acute HF 02/22/2025 until 02/26/2025
Recurrent RLE cellulitis
Acute on chronic HFpEF
Mitral valve disease
s/p bioprosthetic mitral valve replacement 2014
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
Spontaneous echo contrast in the left atrium and definite thrombus in the MARIANELA by YUE 08/13/2024
No longer evidence of MARIANELA thrombus on repeat YUE 10/06/2024
Concern for possible MARIANELA thrombus by YUE 01/20/2025
Persistent MARIANELA thrombus by YUE 04/29/2025
Eliquis transitioned to warfarin for LA smoke by YUE 08/13/24
Paroxysmal atrial fibrillation and atypical atrial flutter
s/p PVI 04/2023
s/p PVI with PFA, posterior wall ablation 03/16/2025
Recurrent atrial flutter noted on ECG 04/26/2025
HCM, severe concentric LVH, on Camzyos, dosing changes managed at [facility]
PHTN
s/p RHC at [facility] 12/2023
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
h/o endocarditis
Hypertension
Hyperlipidemia
COPD
Hyponatremia
Hypokalemia
BUTCH
YUE 08/13/24: [facility] at [place] study, EF 65%, moderately dilated RV with mild RV hypokinesis, severely dilated LA with evidence of spontaneous echo contrast and definite MARIANELA thrombus, bioprosthetic mitral valve with marked thickening and
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
YUE 10/06/2024: EF 60 to 65%, severe concentric LVH, mildly dilated RV and mildly reduced RV systolic function, some spontaneous echo contrast seen in the left atrial cavity, but no left atrial appendage thrombus, bioprosthetic mitral valve with
significant thickening and calcification, restricted leaflet motion and the valve visually appears to have moderate to severe stenosis, mean mitral valve gradient 11 mmHg, moderate to severe MR with flow coming into the left atrial appendage, mild
to moderate aortic regurgitation, moderate TR
YUE 01/20/25: EF 55 to 60%, severe LVH, aortic sclerosis, mild to moderate AR, well-seated bioprosthetic valve in mitral position with mean mitral gradient 6 mmHg, no MR, again spontaneous echo contrast and possible thrombus in left atrial appendage
Echo 02/22/2025: EF 67% without obvious LVOT gradient, s/p TMVR with previous surgical MVR peak/mean 22/11 mmHg, no MR, mild to moderate aortic regurgitation, dilated RV with hypokinesis, severe TR with PAP 74 mmHg
YUE 04/29/2025: EF 50-55%, thrombus visualized in MARIANELA, mild AR, s/p valve in valve TMVR, mean gradient 4 mmHg, moderate TR
Plan:
-Patient came to the ER yesterday with increased SOB and an episode of near syncope prompting admission and cardiology consultation. This is the patient's fifth admission in the last 2 months for issues including acute HF, recurrent atrial
arrhythmia and recurrent cellulitis. Most recently patient was admitted from 04/21/2025 until 05/01/2025 initially with RLE cellulitis and then cardiology was consulted for recurrent HF. Patient has a complex PMH including a tissue MVR in 2014
followed by bioprosthetic MS leading to TMVR at [facility] on 10/15/2024. In the interim the patient was diagnosed with HCM with severe concentric LVH and was started on Camzyos that is managed by Dr. Pat at [facility]. Patient has also had issues with
atrial arrhythmia and had PVI in 2022 and then due to recurrent atrial arrhythmia had PVI and posterior wall ablation 03/16/2025. When the patient presented for cellulitis on 04/21/2025 she was noted to be in atrial flutter, but cardiology was not
initially consulted. Patient felt that the atrial flutter recurred only a day prior to admission. Cardiology started amiodarone at that time and patient was set up for a YUE/CV on 04/29/2025 that showed evidence of a persistent MARIANELA thrombus.
Patient previously had MARIANELA thrombus seen on YUE for 425 and then on a follow-up YUE on 09/28/2024 there is no longer evidence of thrombus. Patient then noted to have recurrence of possible MARIANELA thrombus on YUE 01/20/2025 and again as noted there was
persistent thrombus on 04/29/2025. Due to persistent thrombus the CV was canceled and amiodarone was stopped. Patient was discharged to home with the plan for rate control using Lopressor 25 mg BID and warfarin was continued. INRs have been
largely therapeutic during her recurrent admissions over the last 2 months. Patient says that while driving home from the hospital on 05/01/2025 she had fecal incontinence described as explosive diarrhea and when she got herself into her house she
stepped into the shower to clean herself up and slipped and fell and hit her head prompting a call to 911 and she was taken to [facility] because she lives in [place]. CT of the head was negative and patient was recommended observation, but signed
herself out to go home because she was tired of being in the hospital setting. Over the last 2 days the patient felt increasing SOB and right greater than left LE swelling and they were walking in her home last night at she had an episode of near
syncope and SOB prompting her to come back to the ER. Weight is up 4 lbs and proBNP is greater than 27,000, her last proBNP on 04/02/2025 was only 5580. Patient noted to be hypoxic, but does not follow with a replenishment merchandising associate and does not use
supplemental oxygen at home.
-ECG reviewed by me looks like A-fib with controlled ventricular response
-Telemetry reviewed by me shows ongoing A-fib with HRs generally controlled rate at 80 to 90 bpm
-proBNP is greater than 27,000 and CXR is consistent with acute HF. Will attempt to diurese with Lasix 80 mg IV BID. Patient was taking Lasix 60 mg PO BID prior to admission.
-Of note patient was given a dose of metolazone 2.5 mg x 1 on 04/29/2025 and diuresed well with this, but now has evidence of hyponatremia, hypokalemia and BUTCH. Will hold off on further doses of metolazone for now
-Labs reviewed by me, Cre is 1.6 on 05/04/2025. Will follow on a daily basis.
-EF preserved at 50 to 55% by echo 04/29/2025.
-Outpatient dose of Lopressor will be increased to 50 mg BID to help with ongoing rate control efforts
-Patient is not chronically on ELOINA/ARB/ARNI/SGLT2 inhibitor as her HF is primarily driven by HCM and valvular heart disease and due to BUTCH
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
-Patient also follows with Dr. Pat at [facility] for HCM and is chronically on Camzyos managed by their office. Patient's last acute HF admission in February seem to correlate with an up titration of her Camzyos to 10 mg daily, communication at that
time with Dr. Pat's office ended with the patient resuming her Camzyos at 10 mg daily and following up with their office. Patient did not bring her Camzyos to the hospital and we do not have it on formulary.
-Patient has a history of paroxysmal atrial fibrillation and flutter. Patient had a PVI in 2022 and then had PVI and posterior wall ablation 03/16/2025. Patient has recurrent atrial flutter as seen on ECG 04/26/2025. Patient remains in A-fib on my
review of telemetry 05/04/2025.
-Amiodarone started and stopped last admission due to persistent MARIANELA thrombus seen on YUE 04/29/2025
-INR is therapeutic at 2.57 on 05/04/2025. Warfarin 2.5 mg daily has been continued, this was her outpatient dose as well. Daily INR is ordered. INR goal is 2-3. Outpatient INRs managed by cardiology office with draws at [facility].
-Patient was previously on DOAC, but this was stopped due to concern for echo contrast and thrombus, patient transition to warfarin.
-Consider pulmonology consultation if hypoxia persist despite diuresis
-Patient has recurrent right thigh wounds and concerns for cellulitis. ID note from last admission reviewed by me and the painful nodules could be erythema nodosum and a biopsy with dermatology as an outpatient was suggested.
[2025-05-04 12:24] LABS: Glucose - Point of Care 131 mg/dl (70-99)
--- NOTE | 2025-05-04 12:25 | CON.ID ---
Consultation
-
Date/Time Consultation Requested: 05/04/2025 12:15
Date/Time Consultation Performed: 05/04/2025 12:20
Requesting Provider: Dr. Goldstein
Performing Provider: Dr. Pascal
Reason for Consultation: Left leg wounds
Chief Complaint / Past History
Chief Complaint
Right lower extremity erythema/ swelling
History of Present Illness
Elizabeth Ortiz is a 79-year-old female being evaluated in Infectious Disease consultation regarding right leg cellulitis. History is obtained from chart review, patient care.
Patient is known to the Infectious Disease service, having been seen on several prior hospitalizations (February 2025, early April 2025) for right lower extremity erythema.
In review, she was seen in late February here at [facility] when she presented for pain, redness and swelling of the right lower extremity starting 4 days earlier. Swelling at that point in time started in the foot and progressed to include
the upper thigh. She was diagnosed with nonpurulent cellulitis, transitioned to cefazolin, and ultimately discharged on Keflex to continue through 03/18/2025.
She presented back to the emergency room on 04/02/2025 for shortness of breath. She also had noted increasing erythema and edema of the right lower extremity. She again was discharged to home on a course of Keflex.
She presented back to the ER on 04/21/2025. At this point in time she had now began to develop 3-4 papules. Cultures were obtained which revealed staph hemolyticus. The patient completed the course of linezolid. Subsequent superficial cultures
revealed growth of Pseudomonas, and the patient was discharged on a course of ciprofloxacin, but returns to the ER on 05/03 secondary to shortness of breath. According to notes she had fallen several times on 04/12 and was taken to [facility], but did not stay as she stated that she had a dog to take care of. Because of ongoing shortness of breath she presented to [facility]. She has noted several papules that have persisted on the right inner thigh which have now
broken open. Her leg is noted to be erythematous, and Infectious Diseases is asked to comment upon further antimicrobial therapy.
No history of recent fevers. Patient has been afebrile since admission. White count has been normal. She notes discomfort to palpation in the right inner thigh area.
Past History
Additional Past Medical History:
Atrial fibrillation
congestive heart failure
COPD
hypertension
previous episodes of cellulitis
Additional Past Surgical History:
Mitral valve repair
appendectomy
Allergy History:
epinephrine Allergy (Verified 05/03/25 21:12)
NOVOCAIN WITH EPI
grass pollen Allergy (Verified 05/03/25 21:12)
Unknown
Penicillins Allergy (Verified 05/03/25 21:12)
Unknown
procaine (From Novocain) Allergy (Verified 05/03/25 21:12)
Unknown
Medications Reviewed: Yes
Current Antibiotics:
cipro 500 mg PO BID
Social History
Tobacco: Non-Smoker
Alcohol: None
Drug: None
Personal: Single
Living: Alone
Employment: Employed
Family History
Family History: Not Pertinent
Review of Systems
Vital Signs
Temp Pulse Resp BP Pulse Ox
98.3 F 86 16 128/71 96
05/04/25 07:30 05/04/25 10:01 05/04/25 10:01 05/04/25 08:00 05/04/25 07:30
Physical Exam
Physical Exam
Constitutional: No Acute Distress
Cardiovascular: Regular Rate and S1/S2
Pulmonary: Clear and Symmetric
Gastrointestinal: Soft, Non Tender, Non Distended and Normal Bowel Sounds
Extremities: Edema (3-4(+) RLE) and Other
Skin: Warm
Neurological: AO x 3
mildly tender, blanching, erythematous skin extending up from the medial side of her ankle up to her inner groin. Associated with several open wounds on the medial aspect of her thigh and a draining wound on the back of her thigh. Nodular lesion
also noted.
Lab / Diagnostic Study Results
05/04/25 07:06
05/04/25 07:06
Abs Immat Gran (auto) 0.1 10^3/uL (0-0.05) H 05/03/25 15:35
Absolute Neuts (auto) 5.8 10^3/uL (1.4-6.5) 05/03/25 15:35
Absolute Lymphs (auto) 0.6 10^3/uL (1.2-3.4) L 05/03/25 15:35
Absolute Monos (auto) 0.8 10^3/uL (0.1-0.6) H 05/03/25 15:35
Absolute Basos (auto) 0.0 10^3/uL (0-0.2) 05/03/25 15:35
Immature Gran % 0.7 % (0-0.5) H 05/03/25 15:35
Neutrophils % 78.8 % (42.2-75.2) H 05/03/25 15:35
Lymphocytes % 8.6 % (20.5-51.1) L 05/03/25 15:35
Monocytes % 11.0 % (1.7-9.3) H 05/03/25 15:35
Eosinophils % 0.5 % (0-6) 05/03/25 15:35
Basophils % 0.4 % (0-2) 05/03/25 15:35
PT 27.1 Sec (11.4-14.6) H 05/04/25 07:06
INR 2.57 05/04/25 07:06
Microbiology Results
Micro:
05/03/25 15:35 Influenza Types A & B (GONSALO) - Final
Nasal Swab Negative for Influenza A & B, NAAT
Negative results must be combined with clinical observations
and patient history.
Nucleic Acid Amplification test (NAAT)performed on the
[employer] ID NOW platform.
peripheral vascular ultrasound on 04/21/25:
IMPRESSION:
No evidence of right lower extremity deep venous thrombosis.
Photos:
Assessment / Plan
RLE edema
Possible RLE cellulitis (recurrent?)
Medial right thigh wounds
SOB
Atrial fibrillation
congestive heart failure
COPD
hypertension
Recommendations:
At present, it is not clear whether the patient's right medial thigh lesions are infectious or not. I suspect that there is at least a component of tissue edema that is contributing to these nodules, possibly allowing for further breakdown and then
bacterial colonization.
Begin Tulio wrap's and Tubigrip compression to the right lower extremity in order to control edema.
Lower extremity elevation above the level of the heart.
Follow-up for the development of additional nodular wounds. Should they develop, would recommend biopsy, although may need to be performed by Gen Surgery, as Derm does not come to the hospital for these procedures.
Continue cipro for today.
Care Review
Plan reviewed with: Nurse
[2025-05-04] MEDS: NON-FORMULARY ITEM 10 MG PO (13:13)
--- NOTE | 2025-05-04 13:45 | W.PN.UPDATE ---
Update Note
Progress Note Update
Patient noted to be orthostatic when working with PT. Original plan was to increase Lopressor to 50 mg BID, but will reduce the dose back to 25 mg BID and add midodrine 2.5 mg TID.
[2025-05-04 15:50] LABS: Glucose - Point of Care 161 mg/dl (70-99)
[2025-05-04] MEDS: LASIX 80 MG IV (16:23)
[2025-05-04] MEDS: SENOKOT-S 1 TABLET PO ×2 (16:44→20:45)
[2025-05-04] MEDS: COUMADIN 2.5 MG PO (17:46)
[2025-05-04 21:21] LABS: Glucose - Point of Care 132 mg/dl (70-99)
[2025-05-05] VITALS (7 sets, daily range): BP systolic 98–120; BP diastolic 54–75; PULSE 92–103; BMI 28.7
--- NOTE | 2025-05-05 06:59 | W.PN.HOSP.TC ---
Today's Communication/Plan
-
potassium repleted 80meq today
warfarin dose increased from 2.5mg to 4mg daily INR was 1.84(goal 2.5-3.5)
continue other meds
check electrolytes - keep potassium between 3 and 4 and magnesium between 4 and 5
Assessment / Plan
Assessment / Plan
Patient is a 79 y/o female with a complicated past medical history noted below who was recently admitted to [facility] from Apr 21 to May 01 for recurrent cellulitis. That hospitalization was complicated by persistent atrial fibrillation for which plan
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 Patient was also treated for acute heart failure with IV diuretics, and noted discharge weight of 66.9 kg (147 lbs). Patient presents today with increased
shortness of breath. She reports worsening lower extremity edema, and weight gain of 6lbs since discharge.
05/05/2025 : on 3L oxy, K repleted,INR 1.84 (goal 2.5-3.5) warfarin dose increase warfarin 2.5mg to 4mg , had diahhria yesterday three loose stool brown color and one this morning mixed with black color, on 3 L oxygen
Plan:
#Decompensated HFpEF
Has known HOCM for which she takes beta-viet and Camzyos
proBNP greater than 27,000 on admit
Started on IV Lasix 60 mg twice daily on arrival then increased to 80mg BID iv , continued metoprolol tartrate 25mg BID and Camzyos
leg swelling improving with diuresis
monitor BMP + I's and O's + weights
Appreciate Cardiology input
Continue on telemetry and monitor SpO2
TTE 05/04/25: EF 65-70% with moderately enlarged and moderately hypokinetic RV and marked pulmonary hypertension with estimated pulmonary artery pressure of 94 mmHg.
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
Creatinine up to 1.5--1.6--1.2
Suspect that this will improve with IV diuresis as above
Trend BMP and UOP
avoid nephrotoxins
#diarrhea
pt had three loose stool on 05/04/25 and one this morning mixed with black color stool
bowel regimen discontinued
will monitor
#A.fib
pt has a hx of A.fib not a candidate for cardioversion from last admission due to thrombus in her left atrium
likely that ongoing AF is contributing to exacerbation of CHF, she is rate controlled at present
appreciate cardiology input: per cardio note/ reccs below:
-cannot move towards rhythm control given finding of MARIANELA clot on YUE 04/29/2025
-Maintain metoprolol to tartrate from 25 mg twice daily (consideration for changing to succinat
-Maintain warfarin with goal INR increased to 2.5-3.5 and eventually (6 weeks) repeat YUE to assess for resolution of left atrial appendage thrombus
-If and when left atrial appendage thrombus resolves there can be further consideration for rhythm control options (amio +/- repeat ablation)
#Orthostatic hypotension
Etiology may be physical deconditioning
Patient noted to be orthostatic when working with PT. Maintain Lopressor to 25 mg BID and on 05/04 PM, midodrine 2.5 mg TID was added
#Nonpurulent cellulitis, [employer].
Recently discharged on levofloxacin
Wound with vesicle appearance and drainage
Noted to look worse by cardiology
consulted ID recommended to continue with ciprofloxacin and start thigh-high compression stockings. ID also recommends consideration of skin biopsy if nodularity to the lesion worsens.
Diet -- Diabetic, sodium restricted
DVT -- Home warfarin
Code -- Full
Dispo -- PT consulted
Discussed with cardiology
Anticipated Discharge: > 48 hours
Subjective/Interval History
-
Date of Service: May 05, 2025
Pt was sitting on her bed eating breakfast , she stated that she got shortness of breath when she work with PT. she denied chest pain, palpitation, lightheadedness. She had loose stool yesterday three times with brown color and one BM with mixed
brown and black color. She denied nausea, vomiting or abd pain.
Objective Data
-
Labs:
Laboratory Results
05/05/25
06:00
WBC Pending
Hgb Pending
Hct Pending
Plt Count Pending
PT Pending
INR Pending
Sodium Pending
Potassium Pending
Chloride Pending
Carbon Dioxide Pending
BUN Pending
Creatinine Pending
Glucose Pending
Calcium Pending
Vital Signs:
Vital Signs
Temp Pulse Resp BP Pulse Ox
98.2 F 90 14 109/58 94
05/05/25 03:26 05/05/25 03:26 05/05/25 03:26 05/05/25 03:26 05/05/25 03:26
I&O
05/03/25 05/04/25 05/05/25
06:59 06:59 06:59
Intake Total 240 / 240
Balance 240 / 240
Review of Systems
-
History Source: Patient
Respiratory: Reports No Symptoms
Cardiac: Reports No Symptoms
Abdomen/GI: Reports Diarrhea (one bowel movement this morning brown color mixed with black color )
Genitourinary: Reports No Symptoms
Physical Exam
-
General: Well Developed, Well Nourished and No Apparent Distress
HEENT: Normocephalic, Atraumatic and Moist Mucous Membranes
Respiratory: Clear to Auscultation
Cardiac: S1/S2 and Irregular Rhythm
GI: Soft, Nontender and Nondistended
Musculoskeletal: Edema, Right Lower Extrem and Edema, Left Lower Extrem
Skin: Warm, Dry and Rash (erythema and blistering on right inner thigh)
Neuro: Awake, Alert, Oriented and AO x 3
Psych: Calm
[2025-05-05] MEDS: ADVAIR HFA 115/21 MCG INHALER 2 PUFF INH ×2 (07:58→22:05)
[2025-05-05 07:59] LABS: Glucose - Point of Care 120 mg/dl (70-99)
[2025-05-05 08:45] LABS: INR 1.84; PT 21.0 Sec (11.4-14.6)
[2025-05-05 08:47] LABS: Hematocrit 47.0 % (37.0-47.0); Hemoglobin 13.9 g/dL (12.0-16.0); Mean Corp Hgb Conc. 29.6 g/dL (33.0-37.0); Mean Corpuscular Volume 93.6 fL (81.0-99.0); Nucleated Red Blood Cells % 0 %; Platelet Count 115 10^3/uL (130-400); Red Cell Dist. Width 18.6 % (11.5-14.5)
[2025-05-05] MEDS: NOVOLOG FLEXPEN-LOW RESISTANCE SC ×3 (08:57→16:51)
[2025-05-05] MEDS: NEURONTIN 300 MG PO ×2 (08:58→20:26)
[2025-05-05] MEDS: LIPITOR 20 MG PO (08:58)
[2025-05-05] MEDS: ASPIR LOW (ENTERIC COATED) 81 MG PO (08:58)
[2025-05-05] MEDS: LOPRESSOR 25 MG PO ×2 (08:58→20:26)
[2025-05-05] MEDS: CIPRO 500 MG PO (09:01)
[2025-05-05] MEDS: LASIX 80 MG IV ×2 (09:01→15:52)
[2025-05-05 09:02] LABS: Blood Urea Nitrogen 39 mg/dl (7-17); Calcium 8.5 mg/dl (8.4-10.2); Carbon Dioxide 36 mmol/L (22-30); Chloride 93 mmol/L (98-107); Estimated Creatinine Clearance 34 ml/min; Glucose 99 mg/dl (70-99); Potassium 3.2 mmol/L (3.5-5.1); Sodium 135 mmol/L (135-145); eGFR 46.33
[2025-05-05] MEDS: ROXICODONE 5 MG PO ×2 (09:12→20:32)
[2025-05-05] MEDS: SENOKOT-S PO (09:26)
--- NOTE | 2025-05-05 09:32 | W.PN.CARDCBS ---
Today's Communication / Plan
-
Continue IV Lasix diuresis, attempt to record daily weights and fluid balance
Maintain potassium between 4 and 5 and magnesium between 2 and 3
Continue midodrine for orthostatic hypotension
Impression / Plan
-
PCP: Antonieta Clark MD
CDY: Yahaira Evans MD locally and Dr. Pat at [facility] ([phone])
Assessment:
Admitted with acute hypoxic respiratory insufficiency and acute HF 05/03/2025
Recent admission for recurrent RLE cellulitis, acute HF and recurrent A-fib 04/21/2025 until 05/01/2025
Recent admission for PVI and posterior wall ablation 03/16/2025
Recent admission for RLE cellulitis 03/04/2025 until 03/09/2025
Recent admission for acute HF 02/22/2025 until 02/26/2025
Recurrent RLE cellulitis
Acute on chronic HFpEF
Mitral valve disease
s/p bioprosthetic mitral valve replacement 2014
developed bioprosthetic MS leading to TMVR at [facility] 10/15/24
Spontaneous echo contrast in the left atrium and definite thrombus in the MARIANELA by YUE 08/13/2024
No longer evidence of MARIANELA thrombus on repeat YUE 10/06/2024
Concern for possible MARIANELA thrombus by YUE 01/20/2025
Persistent MARIANELA thrombus by YUE 04/29/2025
Eliquis transitioned to warfarin for LA smoke by YUE 08/13/24
Paroxysmal atrial fibrillation and atypical atrial flutter
s/p PVI 04/2023
s/p PVI with PFA, posterior wall ablation 03/16/2025
Recurrent atrial flutter noted on ECG 04/26/2025
HCM, severe concentric LVH, on Camzyos, dosing changes managed at [facility]
PHTN
s/p RHC at [facility] 12/2023
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
h/o endocarditis
Hypertension
Hyperlipidemia
COPD
Hyponatremia
Hypokalemia
BUTCH
YEU 08/13/24: [facility] study, EF 65%, moderately dilated RV with mild RV hypokinesis, severely dilated LA with evidence of spontaneous echo contrast and definite MARIANELA thrombus, bioprosthetic mitral valve with marked thickening and
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
YUE 10/06/2024: EF 60 to 65%, severe concentric LVH, mildly dilated RV and mildly reduced RV systolic function, some spontaneous echo contrast seen in the left atrial cavity, but no left atrial appendage thrombus, bioprosthetic mitral valve with
significant thickening and calcification, restricted leaflet motion and the valve visually appears to have moderate to severe stenosis, mean mitral valve gradient 11 mmHg, moderate to severe MR with flow coming into the left atrial appendage, mild
to moderate aortic regurgitation, moderate TR
YUE 01/20/25: EF 55 to 60%, severe LVH, aortic sclerosis, mild to moderate AR, well-seated bioprosthetic valve in mitral position with mean mitral gradient 6 mmHg, no MR, again spontaneous echo contrast and possible thrombus in left atrial appendage
Echo 02/22/2025: EF 67% without obvious LVOT gradient, s/p TMVR with previous surgical MVR peak/mean 22/11 mmHg, no MR, mild to moderate aortic regurgitation, dilated RV with hypokinesis, severe TR with PAP 74 mmHg
YUE 04/29/2025: EF 50-55%, thrombus visualized in MARIANELA, mild AR, s/p valve in valve TMVR, mean gradient 4 mmHg, moderate TR
TTE 05/04/25: EF 65-70% with moderately enlarged and moderately hypokinetic RV and marked pulmonary hypertension with estimated pulmonary artery pressure of 94 mmHg.
Plan:
She returns to [facility] with increasing dyspnea and is found to be in exacerbation of congestive heart failure, heart failure with preserved ejection fraction. Additionally found with BUTCH.
Her rates in atrial fibrillation, which has been persistent, are not rapid.
proBNP greater than 27,000 on admit
Echocardiogram finds significant pulmonary hypertension likely related to marked volume overload.
Exacerbation of heart failure with preserved ejection fraction
Acutely:
- IV Lasix diuresis with Lasix 80 mg BID and low threshold to add a dose of metolazone if adequate diuresis is not obtained with Lasix alone
Wt still pending and fluid balance not accurately recorded. Need weight recorded and accurate fluid balance recorded.
With IV Lasix, renal function has improved significantly, creatinine from 1.6 down to 1.2 so we are likely providing some effective diuresis
Please keep potassium between 3 and 4 and magnesium between 4 and 5
While it is likely that ongoing AF is contributing to exacerbation of CHF, she is rate controlled at present and we cannot move towards rhythm control given finding of MARIANELA clot on YUE 04/29/2025
Maintain metoprolol to tartrate from 25 mg twice daily (consideration for changing to succinate)
Maintain warfarin with goal INR increased to 2.5-3.5 and eventually (6 weeks) repeat YUE to assess for resolution of left atrial appendage thrombus
If and when left atrial appendage thrombus resolves there can be further consideration for rhythm control options (amio +/- repeat ablation)
Hypertrophic obstructive cardiomyopathy
Maintain mavacamten
(While Mavacamten may promote clinical HF by reducing LVEF, LVEF is stable by echocardiogram 05/04/2025 so would continue Mavacamten)
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
Transthoracic echocardiogram 05/04/2025 findings bioprosthetic mitral valve without evidence of perivalvular leak and peak and mean gradients of 24/9 mmHg which is stable.
Orthostatic hypotension
Etiology may be physical deconditioning
Patient noted to be orthostatic when working with PT. Maintain Lopressor to 25 mg BID and on 05/04 PM we added midodrine 2.5 mg TID.
Patient has recurrent right thigh wounds and there is concerns for cellulitis.
ID following. Currently on oral cipro. There is consideration that this could represent erythema nodosum and a biopsy with dermatology as an outpatient is being considered.
Total time 50 min
Progress Note - Leak Patcher
Subjective
Date of Service: May 05, 2025
Sleeping but arousable and offers no new complaints
Objective
Labs:
05/05/25 07:47
05/05/25 07:47
Labs
Hgb 13.9 g/dL (12.0-16.0) 05/05/25 07:47
Hct 47.0 % (37.0-47.0) 05/05/25 07:47
Plt Count 115 10^3/uL (130-400) L 05/05/25 07:47
PT 21.0 Sec (11.4-14.6) H 05/05/25 07:47
INR 1.84 05/05/25 07:47
Sodium 135 mmol/L (135-145) 05/05/25 07:47
Potassium 3.2 mmol/L (3.5-5.1) L 05/05/25 07:47
BUN 39 mg/dl (7-17) H 05/05/25 07:47
Creatinine 1.2 mg/dL (0.6-1.0) H 05/05/25 07:47
Glucose 99 mg/dl (70-99) 05/05/25 07:47
Troponins
05/03/25 05/03/25 05/04/25
15:35 19:33 01:30
Troponin I 0.066 H* 0.063 H* Cancelled
05/04/25
07:30
Troponin I Cancelled
Vital Signs and I&O:
Vital Signs
Temp Pulse Resp BP Pulse Ox
98.3 F 93 20 120/66 97
05/05/25 07:05 05/05/25 08:01 05/05/25 08:01 05/05/25 07:05 05/05/25 08:01
Vital Signs
Temp Pulse Resp BP Pulse Ox
98.3 F 93 20 120/66 97
05/05/25 07:05 05/05/25 08:01 05/05/25 08:01 05/05/25 07:05 05/05/25 08:01
Intake & Output
05/03/25 05/04/25 05/05/25 05/06/25
06:59 06:59 06:59 06:59
Intake Total 240 / 240
Balance 240 / 240
Physical Exam
Physical Exam
Sleeping but arousable, chronically ill-appearing.
Irregular rate and rhythm with normal S1 and S2, no S3 no S4. There is a grade 1/6 apical holosystolic murmur and no rubs. PMI is normally placed.
Lungs with reduced breath sounds at both bases and bibasilar rales without wheezes rales or rhonchi.
Abdomen soft nontender nondistended with normoactive bowel sounds
Extremities show +3 edema bilaterally LE with no clubbing or cyanosis.
--- NOTE | 2025-05-05 11:24 | PTCARENOTE ---
The patient is aaox3 pleasant able to make her needs known. She has a recent fall and is normally independent without any ambulatory aids at baseline. She was found to be a high fall risk. The patient has a fall sign on the door, fall risk bracelet
on, hospital tred socks, round trip sign on door, chair alarm, bed alarm and is placed closed to nurses station and door open. The patient was educated about our fall prevention program and is aware she was placed on high fall risk. She has
verbalized an understanding and contracted to call us before doing anything. so far she has called the call burris appropriately. the patient is concerned about her BP yesterday dipping from 100s to SBP of 60s with dizziness. I did confirm she does
not feel any dizzines now and orthostatics completed. Please see vital signs section. However Lying sbp 98 sitting 117 and standing 112 without any dizziness. PT is in bed now with call burris in hand. hourly rounding completed, room cleaned of
clutter and is safe.
[2025-05-05 11:47] LABS: Glucose - Point of Care 135 mg/dl (70-99)
[2025-05-05] MEDS: KCL 40 MEQ PO ×2 (11:58→15:52)
[2025-05-05] MEDS: NON-FORMULARY ITEM 10 MG PO (14:09)
[2025-05-05 16:32] LABS: Glucose - Point of Care 163 mg/dl (70-99)
[2025-05-05] MEDS: COUMADIN 4 MG PO (16:51)
[2025-05-05] MEDS: IMODIUM 2 MG PO (20:31)
[2025-05-05 21:32] LABS: Glucose - Point of Care 131 mg/dl (70-99)
[2025-05-06] MEDS: ROXICODONE 5 MG PO ×4 (01:42→21:19)
[2025-05-06 03:00] VITALS: BP 120/59
[2025-05-06 05:40] VITALS: BMI 27.4
--- NOTE | 2025-05-06 07:12 | W.PN.HOSP.TC ---
Today's Communication/Plan
-
INR 1.84 goal 2.5-3.5 , warfarin dose increase today 4mg to 5mg
general surgeon consulted for skin lesion biopsy
K repleted
Continue 80mg lasix IV bid
Continue metoprolol 25mg BID
TTE yesterday with LVEF 65-70, signs of RV dilation and worsening pulmonary hypertension.
Check electrolyrs , keep K >4 and Mg >2
Assessment / Plan
Assessment / Plan
Patient is a 79 y/o female with a complicated past medical history noted below who was recently admitted to [facility] from Apr 21 to May 01 for recurrent cellulitis. That hospitalization was complicated by persistent atrial fibrillation for which plan
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 Patient was also treated for acute heart failure with IV diuretics, and noted discharge weight of 66.9 kg (147 lbs). Patient presents today with increased
shortness of breath. She reports worsening lower extremity edema, and weight gain of 6lbs since discharge.
05/05/2025 : on 3L oxy, K repleted,INR 1.84 (goal 2.5-3.5) warfarin dose increase warfarin 2.5mg to 4mg , had diarrhea yesterday three loose stool brown color and one this morning mixed with black color, on 3 L oxygen
05/06/2025 : on 3L oxy , INR 1.84 (goal 2.5-3.5) warfarin dose increase warfarin 4mg to 5mg today, SOB improved , K repleted , SOB improved , wound more painful and more swelling, wound care following , general surgeon contacted for biopsy
Plan:
#Decompensated HFpEF
Has known HOCM for which she takes beta-veit and Camzyos
proBNP greater than 27,000 on admit
Started on IV Lasix 60 mg twice daily on arrival then increased to 80mg BID iv , continued metoprolol tartrate 25mg BID and Camzyos
leg swelling improving with diuresis
monitor BMP + I's and O's + weights
Appreciate Cardiology input
Continue on telemetry and monitor SpO2
TTE 05/04/25: EF 65-70% with moderately enlarged and moderately hypokinetic RV and marked pulmonary hypertension with estimated pulmonary artery pressure of 94 mmHg.
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
Creatinine up to 1.5--1.6--1.2--1.1
Suspect that this will improve with IV diuresis as above
Trend BMP and UOP
avoid nephrotoxins
#diarrhea
pt had three loose stool on 05/04/25 and one this morning mixed with black color stool
bowel regimen discontinued, received one Imodium tablet 05/05/2025
will monitor
#A.fib
pt has a hx of A.fib not a candidate for cardioversion from last admission due to thrombus in her left atrium
likely that ongoing AF is contributing to exacerbation of CHF, she is rate controlled at present
appreciate cardiology input: per cardio note/ reccs below:
-cannot move towards rhythm control given finding of MARIANELA clot on YUE 04/29/2025
-Maintain metoprolol to tartrate from 25 mg twice daily (consideration for changing to succinat
-Maintain warfarin with goal INR increased to 2.5-3.5 and eventually (6 weeks) repeat YUE to assess for resolution of left atrial appendage thrombus
-If and when left atrial appendage thrombus resolves there can be further consideration for rhythm control options (amio +/- repeat ablation)
#Orthostatic hypotension
Etiology may be physical deconditioning
Patient noted to be orthostatic when working with PT. Maintain Lopressor to 25 mg BID and on 05/04 PM, midodrine 2.5 mg TID was added
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
Recently discharged on levofloxacin
Wound with vesicle appearance and drainage
Noted to look worse by cardiology
consulted ID recommended to continue with ciprofloxacin and start thigh-high compression stockings. ID also recommends consideration of skin biopsy if nodularity to the lesion worsens.
05/06-- general surgery consulted for wound biopsy.
Diet -- Diabetic, sodium restricted
DVT -- Home warfarin
Code -- Full
Dispo -- PT consulted
Discussed with cardiology
Anticipated Discharge: > 48 hours
Subjective/Interval History
-
Date of Service: May 06, 2025
No overnight event, Her SOB has been improving and she felt more energetic. She has pain in her skin lesion on her right inner thigh. Denied chest pain. abd pain.
Objective Data
-
Labs:
Laboratory Results
05/06/25
06:53
WBC Pending
Hgb Pending
Hct Pending
Plt Count Pending
PT Pending
INR Pending
Sodium Pending
Potassium Pending
Chloride Pending
Carbon Dioxide Pending
BUN Pending
Creatinine Pending
Glucose Pending
Calcium Pending
Vital Signs:
Vital Signs
Temp Pulse Resp BP Pulse Ox
99.1 F 90 14 120/59 96
05/06/25 03:00 05/06/25 03:00 05/06/25 03:00 05/06/25 03:00 05/06/25 03:00
I&O
05/05/25 05/06/25 05/07/25
06:59 06:59 06:59
Intake Total 2280 / 2280
Balance 2280 / 2280
Review of Systems
-
History Source: Patient
Respiratory: Reports No Symptoms
Cardiac: Reports No Symptoms
Abdomen/GI: Reports No Symptoms
Genitourinary: Reports No Symptoms
Skin: Reports Other (pain in her skin lesion vesicles on right inner thigh with erythema )
Physical Exam
-
General: Well Developed, Well Nourished, No Apparent Distress and Other (3L oxygen)
HEENT: Normocephalic, Atraumatic and Moist Mucous Membranes
Respiratory: Clear to Auscultation
Cardiac: S1/S2 and Irregular Rhythm
GI: Soft, Nontender and Nondistended
Musculoskeletal: Edema, Right Lower Extrem and Edema, Left Lower Extrem
Skin: Warm, Dry and Rash (erythema and blistering on right inner thigh)
Neuro: Awake, Alert, Oriented and AO x 3
Psych: Calm
[2025-05-06 07:31] LABS: Hematocrit 45.2 % (37.0-47.0); Hemoglobin 13.1 g/dL (12.0-16.0); Mean Corp Hgb Conc. 29.0 g/dL (33.0-37.0); Mean Corpuscular Volume 92.8 fL (81.0-99.0); Nucleated Red Blood Cells % 0.3 %; Platelet Count 100 10^3/uL (130-400); Red Cell Dist. Width 18.6 % (11.5-14.5)
[2025-05-06 07:37] LABS: INR 1.84; PT 21.0 Sec (11.4-14.6)
[2025-05-06 07:42] VITALS: BP 124/65
[2025-05-06 07:51] LABS: Glucose - Point of Care 130 mg/dl (70-99)
[2025-05-06 07:59] LABS: Blood Urea Nitrogen 38 mg/dl (7-17); Calcium 8.3 mg/dl (8.4-10.2); Carbon Dioxide 35 mmol/L (22-30); Chloride 94 mmol/L (98-107); Estimated Creatinine Clearance 37 ml/min; Glucose 127 mg/dl (70-99); Magnesium 2.0 mg/dl (1.6-2.3); Potassium 3.6 mmol/L (3.5-5.1); Sodium 135 mmol/L (135-145); eGFR 51.43
[2025-05-06] MEDS: ADVAIR HFA 115/21 MCG INHALER 2 PUFF INH ×2 (08:16→20:10)
[2025-05-06] MEDS: NOVOLOG FLEXPEN-LOW RESISTANCE SC ×2 (08:44→11:48)
[2025-05-06 09:15] VITALS: BMI 27.4
--- NOTE | 2025-05-06 09:55 | W.PN.CARDCBS ---
Addendum entered and electronically signed by Maximus Christopher MD 05/06/25 12:16:
I saw and examined the patient.
The Waiter/Waitress's note was reviewed and I agree with the note.
Comment: Briefly, 79-year-old woman past medical history of hypertrophic cardiomyopathy, heart failure with preserved ejection fraction, transcatheter mitral valve replacement, persistent atrial fibrillation/flutter who presented in acute
decompensated heart failure. Patient was recently admitted for acute heart failure, discharged on 05/01/2025 and then readmitted on 05/03/2025.
#HFpEF, HCM, PH:
Volume status on physical exam is improved; however, still requiring supplemental oxygen 2 L via nasal cannula
Weight today by standing scale is 144 pounds which is lowest on record
Creatinine is trending down with IV diuresis suggestive of cardiorenal syndrome (1.6 -> 1.1 today)
Would today continue IV Lasix today. Wean O2 as able.
Tentative plan to transition to p.o. Lasix 80 mg twice daily in the next 24 to 48 hours
Home dose of Camzyos has been continued
#AFib: Remains in atrial fibrillation
Continue rate control strategy for now given known left atrial appendage thrombus
HR at goal <110 bpm on metoprolol
Continue warfarin anticoagulation for goal INR 2-3
Rest per Lucita Ware
Original Note:
Today's Communication / Plan
-
Continue IV lasix 80mg BID
Weight and renal function improving w/ diuresis.
Wean O2 as able.
Continue mavacamten
Continue lopressor, warfarin
Follow up arranged.
Impression / Plan
-
PCP: Antonieta Clark MD
CDY: Yahaira Evans MD locally and Dr. Pat at [address] ([phone])
Assessment:
Admitted with acute hypoxic respiratory insufficiency and acute HF 05/03/2025
Recent admission for recurrent RLE cellulitis, acute HF and recurrent A-fib 04/21/2025 until 05/01/2025
Recent admission for PVI and posterior wall ablation 03/16/2025
Recent admission for RLE cellulitis 03/04/2025 until 03/09/2025
Recent admission for acute HF 02/22/2025 until 02/26/2025
Recurrent RLE cellulitis
Acute on chronic HFpEF
Mitral valve disease
s/p bioprosthetic mitral valve replacement 2014
developed bioprosthetic MS leading to TMVR at [address] 10/15/24
Spontaneous echo contrast in the left atrium and definite thrombus in the MARIANELA by YUE 08/13/2024
No longer evidence of MARIANELA thrombus on repeat YUE 10/06/2024
Concern for possible MARIANELA thrombus by YUE 01/20/2025
Persistent MARIANELA thrombus by YUE 04/29/2025
Eliquis transitioned to warfarin for LA smoke by YUE 08/13/24
Paroxysmal atrial fibrillation and atypical atrial flutter
s/p PVI 04/2023
s/p PVI with PFA, posterior wall ablation 03/16/2025
Recurrent atrial flutter noted on ECG 04/26/2025
HCM, severe concentric LVH, on Camzyos, dosing changes managed at [address]
PHTN
s/p RHC at [address] 12/2023
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
h/o endocarditis
Hypertension
Hyperlipidemia
COPD
Hyponatremia
Hypokalemia
BUTCH
YUE 08/13/2024: EF 65%, moderately dilated RV with mild RV hypokinesis, severely dilated LA with evidence of spontaneous echo contrast and definite MARIANELA thrombus, bioprosthetic mitral valve with marked thickening and calcification and a mean gradient
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
YUE 10/06/2024: EF 60 to 65%, severe concentric LVH, mildly dilated RV and mildly reduced RV systolic function, some spontaneous echo contrast seen in the left atrial cavity, but no left atrial appendage thrombus, bioprosthetic mitral valve with
significant thickening and calcification, restricted leaflet motion and the valve visually appears to have moderate to severe stenosis, mean mitral valve gradient 11 mmHg, moderate to severe MR with flow coming into the left atrial appendage, mild
to moderate aortic regurgitation, moderate TR
YUE 01/20/2025: EF 55 to 60%, severe LVH, aortic sclerosis, mild to moderate AR, well-seated bioprosthetic valve in mitral position with mean mitral gradient 6 mmHg, no MR, again spontaneous echo contrast and possible thrombus in left atrial appendage
Echo 02/22/2025: EF 67% without obvious LVOT gradient, s/p TMVR with previous surgical MVR peak/mean 22/11 mmHg, no MR, mild to moderate aortic regurgitation, dilated RV with hypokinesis, severe TR with PAP 74 mmHg
YUE 04/29/2025: EF 50-55%, thrombus visualized in MARIANELA, mild AR, s/p valve in valve TMVR, mean gradient 4 mmHg, moderate TR
Echo 05/04/2025: EF 65-70% with moderately enlarged and moderately hypokinetic RV and marked pulmonary hypertension with estimated pulmonary artery pressure of 94 mmHg.
Plan:
-Presented back to w/ acute HF exacerbation and BUTCH. ProBNP >27,000 on admission.
-Diuresing with IV lasix 80mg BID. Weight downtrending. Down to 144 lbs on 05/06. Will need to establish new dry weight this admission as she is below prior dry weight of 149 lbs.
-Creat improving w/ diuresis. Down to 1.1 05/06. Continue to follow
-Echo 05/04 with significant pulmonary HTN, likely related to volume overload.
-Continue mavacamten 10mg daily.
-Remains in persistent atrial fibrillation. Focus on rate control alone given MARIANELA clot by YUE 04/29.
-HRs overall stable on lopressor 25 mg BID.
-Continue warfarin w/ goal INR now 2.5 to 3.5. INR 1.84 05/06.
-Will plan to recheck YUE after 6 weeks to reassess MARIANELA thrombus. If/when MARIANELA thrombus resolves, can consider rhythm control options (amio +/- repeat ablation_)
-BP improved on midodrine 2.5mg TID. Continue working with PT.
-On cipro for recurrent thigh wounds/cellulitis. ID following.
-On 2L NC, wean as able.
-Follow up arranged
Progress Note - Malariologist
Subjective
Date of Service: May 06, 2025
Feels better. Breathing improved. Edema improved.
Objective
Labs:
05/06/25 06:53
05/06/25 06:53
Labs
Hgb 13.1 g/dL (12.0-16.0) 05/06/25 06:53
Hct 45.2 % (37.0-47.0) 05/06/25 06:53
Plt Count 100 10^3/uL (130-400) L 05/06/25 06:53
PT 21.0 Sec (11.4-14.6) H 05/06/25 06:53
INR 1.84 05/06/25 06:53
Sodium 135 mmol/L (135-145) 05/06/25 06:53
Potassium 3.6 mmol/L (3.5-5.1) 05/06/25 06:53
BUN 38 mg/dl (7-17) H 05/06/25 06:53
Creatinine 1.1 mg/dL (0.6-1.0) H 05/06/25 06:53
Glucose 127 mg/dl (70-99) H 05/06/25 06:53
Troponins
05/03/25 05/03/25 05/04/25
15:35 19:33 01:30
Troponin I 0.066 H* 0.063 H* Cancelled
05/04/25
07:30
Troponin I Cancelled
Vital Signs and I&O:
Vital Signs
Temp Pulse Resp BP Pulse Ox
98.1 F 96 20 124/65 97
05/06/25 07:42 05/06/25 08:19 05/06/25 08:19 05/06/25 07:42 05/06/25 08:19
Vital Signs
Temp Pulse Resp BP Pulse Ox
98.1 F 96 20 124/65 97
05/06/25 07:42 05/06/25 08:19 05/06/25 08:19 05/06/25 07:42 05/06/25 08:19
Intake & Output
05/04/25 05/05/25 05/06/25 05/07/25
06:59 06:59 06:59 06:59
Intake Total 240 / 240 2280 / 2280
Balance 240 / 240 2280 / 2280
Physical Exam
Physical Exam
GEN: No distress, awake, alert, oriented x3
HEENT: supple, anicteric, mmm
LUNGS: CTA b/l, no wheezes/rales
CV: irreg, S1/S2, 1/6 murmur
EXT: No clubbing or cyanosis, +1 edema b/l LE
NEURO: Gross non-focal
SKIN: Warm, dry, no rash
[2025-05-06] MEDS: NON-FORMULARY ITEM 10 MG PO (10:12)
[2025-05-06] MEDS: KCL 40 MEQ PO ×2 (10:12→15:30)
[2025-05-06] MEDS: LOPRESSOR 25 MG PO (10:13)
[2025-05-06] MEDS: NEURONTIN 300 MG PO ×2 (10:13→21:06)
[2025-05-06] MEDS: ASPIR LOW (ENTERIC COATED) 81 MG PO (10:14)
[2025-05-06] MEDS: CIPRO 500 MG PO ×2 (10:14→21:07)
[2025-05-06] MEDS: LASIX 80 MG IV ×2 (10:14→15:31)
[2025-05-06] MEDS: LIPITOR 20 MG PO (10:14)
--- NOTE | 2025-05-06 10:37 | W.PN.ID1 ---
Date of Service
Date of Service: May 06, 2025
Today's Communication
Continue antibiotics
Assessment / Plan
RLE edema
Possible RLE cellulitis (recurrent?)
Medial right thigh wounds
SOB
Atrial fibrillation
congestive heart failure
COPD
hypertension
Recommendations:
At present, it is not clear whether the patient's right medial thigh lesions are infectious or not. I suspect that there is at least a component of tissue edema that is contributing to these nodules, possibly allowing for further breakdown and then
bacterial colonization.
Continue Tulio wrap's and Tubigrip compression to the right lower extremity in order to control edema.
Lower extremity elevation above the level of the heart.
Given ongoing nodular wounds, would recommend biopsy, although may need to be performed by Gen Surgery, as Derm does not come to the hospital for these procedures.
Continue cipro for today.
Chief Complaint
-: Other (Right upper thigh skin lesions/nodules)
Subjective / Review of Systems
Patient seen and examined. Reports ongoing tenderness in the right upper thigh area.
Review of Systems: No Fever
Vital Signs / Physical Exam
Vital Signs
Vital Signs
Temp Pulse Resp BP Pulse Ox
98.1 F 96 20 124/65 97
05/06/25 07:42 05/06/25 08:19 05/06/25 08:19 05/06/25 07:42 05/06/25 08:19
Physical Exam
Constitutional: No Acute Distress, Comfortable, Chronically Ill and Non-toxic
Cardiovascular: S1/S2; Negative S3/S4
Pulmonary: Non Labored
Skin: Other (medial right upper thigh area with ongoing nodules. Induration persists. Some previous open wounds now crusted.)
Neurological: Awake and Alert
Psychological: Calm
Objective Data
Lab Data
Lab Results
05/06/25 06:53
05/06/25 06:53
PT 21.0 Sec (11.4-14.6) H 05/06/25 06:53
INR 1.84 05/06/25 06:53
Estimated Creat Clear 37 ml/min 05/06/25 06:53
Total Bilirubin 2.8 mg/dl (0.2-1.3) H 05/03/25 15:35
AST 39 U/L (14-36) H 05/03/25 15:35
ALT 21 U/L (0-35) 05/03/25 15:35
Alkaline Phosphatase 217 U/L (38-126) H 05/03/25 15:35
Most recent labs reviewed.
Micro Results:
05/03/25 15:35 Influenza Types A & B (GONSALO) - Final
Nasal Swab Negative for Influenza A & B, NAAT
Negative results must be combined with clinical observations
and patient history.
Nucleic Acid Amplification test (NAAT)performed on the
[email or web address] platform.
peripheral vascular ultrasound on 04/21/25:
IMPRESSION:
No evidence of right lower extremity deep venous thrombosis.
Photos:
05/04/2025
Care Review
Plan reviewed with: Physician (Hospitalist) and Other Provider (Resident)
--- NOTE | 2025-05-06 10:51 | WOUNDNOTE ---
[facility] RN note: Patient admitted with right leg cellulitis/cystic wounds, recurrent CHF.
See H&P for complete history.
PMH: A. Fib, CHF, COPD, GERD, HTN
Wound Location and type/assessment: Patient admitted with right leg recurrent cellulitis and cystic wounds and bruise to sacrum/buttocks from recent fall. Patient previously admitted from 04/21-05/01 for cellulitis. Patient now readmitted for CHF
and was seen by ID on 05/03. The thigh wounds appear with scattered open areas and scabbed area, surrounded by tender, blanchable skin and range from anterior to posterior aspect of right thigh. Patient visited at bedside with SHAD Acevedo and
Naida.
Appetite: Good
Pressure redistribution devices in place: Versa Care Air. Patient turns easily in bed and ambulates. She has had recent falls prior to hospitalization.
Plan: Will recommend cleaning with Vashe and applying Mesalt daily while wound is draining. Compression previously ordered for right lower leg and thigh and was applied as ordered by this assembly instructions writer.
Will confirm orders with hospitalist and update nurse. Updated care plan and will follow as needed.
Note to case management of equipment requested for discharge:
Recommend follow up at wound care center upon discharge.
[2025-05-06 10:55] VITALS: BP 115/63
--- NOTE | 2025-05-06 11:17 | WOUNDNOTE ---
BUTTOCK, SACRUM RIGHT FLANK BRUISE POA
--- NOTE | 2025-05-06 11:18 | WOUNDNOTE ---
RIGHT LATERAL AND POSTERIOR THIGH
[2025-05-06 11:44] LABS: Glucose - Point of Care 140 mg/dl (70-99)
[2025-05-06 12:03] LABS: Glucose - Point of Care 147 mg/dl (70-99)
[2025-05-06 15:21] VITALS: BP 109/57
--- NOTE | 2025-05-06 16:00 | CM ---
Patient resides alone in a 2nd floor apartment, 12 steps to apartment. No elevator. Patient is independent w/ ambulation, no device required. Independent w/ ADLs and personal care. Drives (+). No DME. No SNF hx. Prev known to [facility].
Plan: Discharge to home; watch for VN needs.
PCP: Antonieta Clark
Pharmacy: [facility] in [place], [place]
--- NOTE | 2025-05-06 16:07 | CON.GS ---
Addendum entered and electronically signed by Tam Marquez MD 05/07/25 09:28:
Delayed entry from 05/06/25
I saw and examined the patient.
The Loan Auditor's note was reviewed and I agree with the note.
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 The treatment is NSAIDs, compression, elevation. Can consider unna boot at wound care center. Idiopathic vs drug induced vs systemic disease (IBD, sarcoid). Recommend outpt Derm f/u. If she
remains hospitalized next week pls contact [facility] for consideration of biopsy.
Original Note:
Consultation
-
Date/Time Consultation Performed: 05/06/25 1643
Medical History
-
Chief Complaint: ulcerating lesions to right thigh
History of Present Illness:
Ms Ortiz is a 79 yo female admitted from 04/21 to 05/01/25 for recurrent cellulitis (Prior admission in February as well) with course of stay complicated by persistent atrial fibrillation, persistent left atrial appendage thrombus (changed from
Eliquis to Warfarin) and acute on chronic heart failure. She presented again on 05/03 with weight gain of 6lbs since her discharge on 05/01/25. She is seen in consultation by general surgery for evaluation of biopsy of her right thigh where she has
noted eruptions/ulcerations. Cultures grew staph species earlier this month then pseudomonas later during her last presentation. She has minimal discomfort currently to her leg.
Past Medical History
Past Medical History: Arrhythmias (PAF on warfarin, tachy/maryanne syndrome), CAD, CHF (HFpEF, HOCM with Severe Concentric Left Ventricular Hypertrophy), COPD, GERD, HTN, Hypercholesterolemia, NIDDM, Valvular Disease (endocarditis affecting MV) and
Other (left atrial appendage thrombus dx 08/2024 and persistent despite Eliquis; changed to warfarin)
Past Surgical History: Appendectomy, Cardiac (MV replacement (bioprosthetic), PVI and posterior wall ablation 03/16/2025) and Orthopedic (left knee)
Social History
Tobacco: Former Smoker
Alcohol: Occasional
Personal: Single
Living: Alone
Family History
Family History: Reviewed & Not Pertinent
Allergies / Home Medications
Allergy/AdvReac Type Severity Reaction Status Date / Time
epinephrine Allergy NOVOCAIN Verified 05/03/25 21:12
WITH EPI
grass pollen Allergy Unknown Verified 05/03/25 21:12
Penicillins Allergy Unknown Verified 05/03/25 21:12
procaine (From Novocain) Allergy Unknown Verified 05/03/25 21:12
�Medication �Instructions �Recorded �Confirmed �Type
atorvastatin 20 mg tablet (Lipitor) 20 mg PO DAILY High Cholesterol 06/21/23 05/03/25 History
acetaminophen 325 mg tablet 650 mg PO Q4HPRN PRN MILD PAIN 08/23/24 05/03/25 History
(Tylenol)
ascorbic acid (vitamin C) 500 mg 1,000 mg PO QPM Supplement 08/23/24 05/03/25 History
tablet (Vitamin C)
warfarin 2 mg tablet (Jantoven) 2.5 mg PO QPM Blood Clot 10/03/24 05/03/25 History
Held on 05/01/25. Prevention/Tx
Instructions: Hold evening
doses on 05/01,
follow-up with warfarin
clinic after that for further
instructions
aspirin 81 mg tablet,delayed 81 mg PO DAILY Heart 01/20/25 05/03/25 History
release Disease/Condition
furosemide 20 mg tablet 60 mg PO BID Fluid 01/20/25 05/03/25 History
Retention/Swelling
metoprolol tartrate 25 mg tablet 25 mg PO BID Heart 01/20/25 05/03/25 History
Disease/Condition
gabapentin 300 mg capsule 300 mg PO BID moderate pains 02/22/25 05/03/25 History
mavacamten 5 mg capsule (Camzyos) 10 mg (2 x 5 mg) PO DAILY Heart 02/24/25 05/03/25 Rx
disease/condition #30 caps
fluticasone 113mcg-salmeterol 1 inh inhalation R BID 03/16/25 05/03/25 History
14mcg/actuation breath act,powder
sensor
albuterol sulfate 90 mcg/actuation 2 puff inhalation R Q6HPRN PRN 04/21/25 05/03/25 History
aerosol inhaler SHORTNESS OF BREATH
ciprofloxacin HCl 500 mg tablet 500 mg PO BID 10 days #20 tabs 05/01/25 05/03/25 Rx
metformin 500 mg tablet 500 mg PO BID@0800,1700 30 days 05/01/25 05/03/25 Rx
#60 tabs
Review of Systems
-
History Source: Patient
All other systems: Negative unless noted
A 10 point review of systems was completed, and was negative except as per HPI.
Physical Exam
Vital Signs
Temp Pulse Resp BP Pulse Ox
98.1 F 88 18 109/57 98
05/06/25 15:21 05/06/25 15:21 05/06/25 15:21 05/06/25 15:21 05/06/25 15:21
05/05/25 05/06/25 05/07/25
06:59 06:59 06:59
Actual Weight 65.771 kg 65.68 kg
Body Mass Index (BMI) 27.4
Lab Results
05/06/25 06:53
05/06/25 06:53
WBC 7.2 10^3/uL (4.8-10.8) 05/06/25 06:53
Hgb 13.1 g/dL (12.0-16.0) 05/06/25 06:53
Hct 45.2 % (37.0-47.0) 05/06/25 06:53
Plt Count 100 10^3/uL (130-400) L 05/06/25 06:53
Abs Immat Gran (auto) 0.0 10^3/uL (0-0.05) 05/06/25 06:53
Neutrophils % 74.9 % (42.2-75.2) 05/06/25 06:53
Physical Exam
General: Well Developed
HEENT: Moist Mucous Membranes
Respiratory: Non Labored Respirations
Skin: Warm and Other (small ulcerations to the right thigh with surrounding erythema)
Neuro: Awake, Alert and AO x 3
Psych: Calm
Data Reviewed
-
CT Scan: Image Personally Visualized and interpreted, Report Reviewed by me, Discussed with Physician and Discussed with Patient
Labs: Labs Reviewed by me, Discussed with Physician and Discussed with Patient
Old Records: Reviewed
Assessment / Plan
-
79 yo female with a h/o afib, left atrial thrombus (on warfarin), HFpEF seen in evaluation today for recurrent ulcerations to the right thigh since February for evaluation for biopsy. Most recent cx on 04/30/25 with +Pseudomonas. CT on 04/22 with
cystic lesions noted to the RLE without abscess. AFVSS. Currently completing abx course for pseudomonas overgrowth. On anticoagulation with warfarin (INR 1.84)
Plan:
Unclear etiology of lesions, ? erythema nodosum
Would hold on biopsy at this point and advised pt to follow up with dermatology upon discharge (updated d/c instructions with information for local derm)
Surgery to follow peripherally, please call with questions concerns
[2025-05-06 16:36] LABS: Glucose - Point of Care 168 mg/dl (70-99)
[2025-05-06] MEDS: NOVOLOG FLEXPEN-LOW RESISTANCE 1 UNITS SC (18:16)
[2025-05-06] MEDS: COUMADIN 5 MG PO (18:16)
[2025-05-06 20:29] VITALS: BP 110/53
[2025-05-06] MEDS: LOPRESSOR PO (21:07)
[2025-05-06 21:33] LABS: Glucose - Point of Care 171 mg/dl (70-99)
[2025-05-06 23:43] VITALS: BP 124/69
--- NOTE | 2025-05-07 02:18 | PTCARENOTE ---
Patient maintained on 2LNC throughout shift, satting well on 2LNC. No prior use of oxygen per patient. Will monitor.
[2025-05-07 03:10] VITALS: BP 118/69
[2025-05-07 05:32] VITALS: BMI 27.3
[2025-05-07 07:05] VITALS: BP 152/75
[2025-05-07 07:21] LABS: Glucose - Point of Care 126 mg/dl (70-99)
[2025-05-07] MEDS: ADVAIR HFA 115/21 MCG INHALER 2 PUFF INH (07:48)
[2025-05-07] MEDS: NOVOLOG FLEXPEN-LOW RESISTANCE SC ×2 (08:42→12:07)
[2025-05-07] MEDS: LIPITOR 20 MG PO (08:46)
[2025-05-07] MEDS: NEURONTIN 300 MG PO (08:46)
[2025-05-07] MEDS: ASPIR LOW (ENTERIC COATED) 81 MG PO (08:46)
[2025-05-07] MEDS: LASIX 80 MG IV (08:47)
[2025-05-07] MEDS: CIPRO 500 MG PO (08:47)
[2025-05-07] MEDS: LOPRESSOR 25 MG PO (08:47)
[2025-05-07] MEDS: NON-FORMULARY ITEM 10 MG PO (08:48)
[2025-05-07 09:00] LABS: Hematocrit 44.9 % (37.0-47.0); Hemoglobin 13.1 g/dL (12.0-16.0); Mean Corp Hgb Conc. 29.2 g/dL (33.0-37.0); Mean Corpuscular Volume 93.7 fL (81.0-99.0); Nucleated Red Blood Cells % 0 %; Platelet Count 93 10^3/uL (130-400); Red Cell Dist. Width 18.6 % (11.5-14.5)
[2025-05-07] MEDS: ROXICODONE 5 MG PO (09:00)
[2025-05-07 09:07] LABS: INR 1.95; PT 22.4 Sec (11.4-14.6)
[2025-05-07 09:09] LABS: ALT (SGPT) 27 U/L (0-35); AST (SGOT) 26 U/L (14-36); Albumin 3.3 g/dl (3.5-5.0); Alkaline Phosphatase 218 U/L (38-126); Blood Urea Nitrogen 29 mg/dl (7-17); Calcium 8.8 mg/dl (8.4-10.2); Carbon Dioxide 38 mmol/L (22-30); Chloride 96 mmol/L (98-107); Estimated Creatinine Clearance 40 ml/min; Glucose 143 mg/dl (70-99); Potassium 4.3 mmol/L (3.5-5.1); Sodium 138 mmol/L (135-145); Total Protein 5.9 g/dl (6.3-8.2); eGFR 57.66
--- NOTE | 2025-05-07 10:24 | W.PN.CARDCBS ---
Today's Communication / Plan
-
Will transition to p.o. Lasix 80 mg twice daily and continue on discharge
We will sign off. Outpatient follow-up has been arranged.
Impression / Plan
-
PCP: Antonieta Clark MD
CDY: Yahaira Evans MD locally and Dr. Pat at [facility] ([phone])
Assessment:
Admitted with acute hypoxic respiratory insufficiency and acute HF 05/03/2025
Recent admission for recurrent RLE cellulitis, acute HF and recurrent A-fib 04/21/2025 until 05/01/2025
Recent admission for PVI and posterior wall ablation 03/16/2025
Recent admission for RLE cellulitis 03/04/2025 until 03/09/2025
Recent admission for acute HF 02/22/2025 until 02/26/2025
Recurrent RLE cellulitis
Acute on chronic HFpEF
Mitral valve disease
s/p bioprosthetic mitral valve replacement 2014
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
Spontaneous echo contrast in the left atrium and definite thrombus in the MARIANELA by YUE 08/13/2024
No longer evidence of MARIANELA thrombus on repeat YUE 10/06/2024
Concern for possible MARIANELA thrombus by YUE 01/20/2025
Persistent MARIANELA thrombus by YUE 04/29/2025
Eliquis transitioned to warfarin for LA smoke by YUE 08/13/24
Paroxysmal atrial fibrillation and atypical atrial flutter
s/p PVI 04/2023
s/p PVI with PFA, posterior wall ablation 03/16/2025
Recurrent atrial flutter noted on ECG 04/26/2025
HCM, severe concentric LVH, on Camzyos, dosing changes managed at [facility]
PHTN
s/p RHC at [facility] 12/2023
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
h/o endocarditis
Hypertension
Hyperlipidemia
COPD
Hyponatremia
Hypokalemia
BUTCH
YUE 08/13/2024: EF 65%, moderately dilated RV with mild RV hypokinesis, severely dilated LA with evidence of spontaneous echo contrast and definite MARIANELA thrombus, bioprosthetic mitral valve with marked thickening and calcification and a mean gradient
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
YUE 10/06/2024: EF 60 to 65%, severe concentric LVH, mildly dilated RV and mildly reduced RV systolic function, some spontaneous echo contrast seen in the left atrial cavity, but no left atrial appendage thrombus, bioprosthetic mitral valve with
significant thickening and calcification, restricted leaflet motion and the valve visually appears to have moderate to severe stenosis, mean mitral valve gradient 11 mmHg, moderate to severe MR with flow coming into the left atrial appendage, mild
to moderate aortic regurgitation, moderate TR
YUE 01/20/2025: EF 55 to 60%, severe LVH, aortic sclerosis, mild to moderate AR, well-seated bioprosthetic valve in mitral position with mean mitral gradient 6 mmHg, no MR, again spontaneous echo contrast and possible thrombus in left atrial appendage
Echo 02/22/2025: EF 67% without obvious LVOT gradient, s/p TMVR with previous surgical MVR peak/mean 22/11 mmHg, no MR, mild to moderate aortic regurgitation, dilated RV with hypokinesis, severe TR with PAP 74 mmHg
YUE 04/29/2025: EF 50-55%, thrombus visualized in MARIANELA, mild AR, s/p valve in valve TMVR, mean gradient 4 mmHg, moderate TR
Echo 05/04/2025: EF 65-70% with moderately enlarged and moderately hypokinetic RV and marked pulmonary hypertension with estimated pulmonary artery pressure of 94 mmHg.
Plan:
#HFpEF, HCM, PH:
Volume status on physical exam is improved
Weight has plateaued at 144 pounds which is lowest on record
Creatinine is trending down with IV diuresis suggestive of cardiorenal syndrome (1.6 -> 1.0 today)
Transition to p.o. Lasix 80 mg twice daily
Home dose of Camzyos has been continued
#AFib: Remains in atrial fibrillation
Continue rate control strategy for now given known left atrial appendage thrombus
HR at goal <110 bpm on metoprolol
Continue warfarin anticoagulation for goal INR 2-3
Stable for discharge from my perspective. We will sign off. Please recall as needed.
Outpatient follow-up has been arranged
Progress Note - Orthopedic Rn
Subjective
Date of Service: May 07, 2025
No acute overnight events. Patient feels well today. Tells me her lower extremity edema is significantly improved. Motivated to go home. Only complaint today is diarrhea which is new.
Objective
Labs:
05/07/25 08:16
05/07/25 08:16
Labs
Hgb 13.1 g/dL (12.0-16.0) 05/07/25 08:16
Hct 44.9 % (37.0-47.0) 05/07/25 08:16
Plt Count 93 10^3/uL (130-400) L 05/07/25 08:16
PT 22.4 Sec (11.4-14.6) H 05/07/25 08:16
INR 1.95 05/07/25 08:16
Sodium 138 mmol/L (135-145) 05/07/25 08:16
Potassium 4.3 mmol/L (3.5-5.1) 05/07/25 08:16
BUN 29 mg/dl (7-17) H 05/07/25 08:16
Creatinine 1.0 mg/dL (0.6-1.0) 05/07/25 08:16
Glucose 143 mg/dl (70-99) H 05/07/25 08:16
Vital Signs and I&O:
Vital Signs
Temp Pulse Resp BP Pulse Ox
97.7 F 80 16 152/75 99
05/07/25 07:05 05/07/25 07:50 05/07/25 07:50 05/07/25 07:05 05/07/25 07:05
Vital Signs
Temp Pulse Resp BP Pulse Ox
97.7 F 80 16 152/75 99
05/07/25 07:05 05/07/25 07:50 05/07/25 07:50 05/07/25 07:05 05/07/25 07:05
Intake & Output
05/05/25 05/06/25 05/07/25 05/08/25
06:59 06:59 06:59 06:59
Intake Total 2280 / 2280 1320 / 1320
Balance 2280 / 2280 1320 / 1320
Physical Exam
Physical Exam
Gen: NAD, AAOx3
HEENT: NC/AT, sclera anicteric
Neck: No JVD
CV: Irregularly irregular
Lungs: CTAB on 2L NC
Abd: S/ND
Ext: No LE edema
Skin: Warm, dry
Neuro: Non-focal
--- NOTE | 2025-05-07 10:39 | W.PN.HOSP.TC ---
Today's Communication/Plan
-
Continue oral diuretics
Wean oxygen
Warfarin 5 mg this evening
Possible discharge home if oxygen wean successfully
Outpatient skin biopsy with collections professional
Assessment / Plan
Assessment / Plan
Patient is a 79 y/o female with a complicated past medical history noted below who was recently admitted to [facility] from Apr 21 to May 01 for recurrent cellulitis. That hospitalization was complicated by persistent atrial fibrillation for which plan
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 Patient was also treated for acute heart failure with IV diuretics, and noted discharge weight of 66.9 kg (147 lbs). Patient presents today with increased
shortness of breath. She reports worsening lower extremity edema, and weight gain of 6lbs since discharge.
#Decompensated HFpEF
#Acute hypoxemic respiratory failure
Has known HOCM for which she takes beta-viet and Camzyos
proBNP greater than 27,000 on admit
Started on IV Lasix 60 mg twice daily on arrival then increased to 80mg BID iv , continued metoprolol tartrate 25mg BID and Camzyos
leg swelling improving with diuresis
monitor BMP + I's and O's + weights
Appreciate Cardiology input
Continue on telemetry and monitor SpO2
TTE 05/04/25: EF 65-70% with moderately enlarged and moderately hypokinetic RV and marked pulmonary hypertension with estimated pulmonary artery pressure of 94 mmHg.
Has been transitioned off of IV diuretics onto oral Lasix 80 mg twice daily
Remains on GDMT with metoprolol and Camzyos
Wean oxygen for SpO2 goal >90%
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
Creatinine up to 1.5--1.6--1.2--1.1
Suspect that this will improve with IV diuresis as above
Trend BMP and UOP
avoid nephrotoxins
Resolved with diuresis
#diarrhea
pt had three loose stool on 05/04/25 and one this morning mixed with black color stool
bowel regimen discontinued, received one Imodium tablet 05/05/2025
will monitor
#A.fib
pt has a hx of A.fib not a candidate for cardioversion from last admission due to thrombus in her left atrium
likely that ongoing AF is contributing to exacerbation of CHF, she is rate controlled at present
appreciate cardiology input: per cardio note/ reccs below:
-cannot move towards rhythm control given finding of MARIANELA clot on YUE 04/29/2025
-Maintain metoprolol to tartrate from 25 mg twice daily (consideration for changing to succinat
-Maintain warfarin with goal INR increased to 2.5-3.5 and eventually (6 weeks) repeat YUE to assess for resolution of left atrial appendage thrombus
-If and when left atrial appendage thrombus resolves there can be further consideration for rhythm control options (amio +/- repeat ablation)
#Orthostatic hypotension
Etiology may be physical deconditioning
Patient noted to be orthostatic when working with PT. Maintain Lopressor to 25 mg BID and on 05/04 PM, midodrine 2.5 mg TID was added
Symptomatically resolved on current regimen
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
Recently discharged on levofloxacin, Wound with vesicle appearance and drainage
Question possible inflammatory component, cannot rule out process such as erythema nodosum
consulted ID recommended to continue with ciprofloxacin and start thigh-high compression stockings.
ID also recommends consideration of skin biopsy if nodularity to the lesion worsens.
05/06-- general surgery consulted for wound biops, provided OP follow-up with dermatology for outpatient biopsy
#Subtherapeutic INR
#History of bioprosthetic MVR
Patient on warfarin at home with INR goal 2.5-3.5 with bioprosthetic mitral valve
Warfarin here became subtherapeutic, up to 1.95 today with higher warfarin doses
Discussed with cardiology, if stable for DC today will do 2 more days of 5 mg warfarin recheck INR Friday
Monitor CBC and for signs of bleeding
Diet -- Diabetic, sodium restricted
DVT -- Home warfarin
Code -- Full
Dispo -- PT consulted
Discussed with cardiology
Anticipated Discharge: Within 24 hours
Subjective/Interval History
-
Date of Service: May 07, 2025
Seen and examined at the bedside. No acute events reported overnight. AFVSS on 2 L O2
Patient states she feels well, denies any complaints. Denies orthostatic symptoms with positional changes. Eager for discharge home.
A.m. labs with creatinine down to 1, INR 1.95.
Objective Data
-
Labs:
Laboratory Results
05/07/25
08:16
WBC 8.3
Hgb 13.1
Hct 44.9
Plt Count 93 L
PT 22.4 H
INR 1.95
Sodium 138
Potassium 4.3
Chloride 96 L
Carbon Dioxide 38 H
BUN 29 H
Creatinine 1.0
Glucose 143 H
Calcium 8.8
Total Bilirubin 1.6 H
AST 26
ALT 27
Alkaline Phosphatase 218 H
Vital Signs:
Vital Signs
Temp Pulse Resp BP Pulse Ox
97.7 F 80 16 152/75 99
05/07/25 07:05 05/07/25 07:50 05/07/25 07:50 05/07/25 07:05 05/07/25 07:05
I&O
05/06/25 05/07/25 05/08/25
06:59 06:59 06:59
Intake Total 2280 / 2280 1320 / 1320
Balance 2280 / 2280 1320 / 1320
Review of Systems
-
History Source: Patient
All other systems: Reviewed and negative
Physical Exam
-
General: Well Developed, No Apparent Distress and Appears Chronically Ill
HEENT: Normocephalic, Atraumatic, Moist Mucous Membranes, Anicteric and Oxygen
Respiratory: Clear to Auscultation and Non Labored Respirations; Negative Accessory Resp Muscle Use
Cardiac: S1/S2, Irregular Rhythm and Murmur; Negative Rub, JVD or Gallop
GI: Soft, Nontender, Nondistended and Normal Bowel Sounds
Musculoskeletal: No Clubbing, No Cyanosis and No Edema
Skin: Warm, Dry and Rash (Medial right thigh, erythematous and nodular)
Neuro: AO x 3, Nonfocal/Grossly Intact and Central Nerve's Intact
Psych: Calm
[2025-05-07 11:00] VITALS: BP 131/68
[2025-05-07 11:55] LABS: Glucose - Point of Care 134 mg/dl (70-99)
[2025-05-07 15:09] VITALS: BP 131/79
--- NOTE | 2025-05-07 15:22 | CM ---
Addendum entered by Pura Mendoza 05/07/25 15:48:
[facility] said [facility] could not accept patient, offered patient skilled placement however patient declined and plan is to home, patient to obtain lads as outpatient. Patient to order [employer] for transport to home.
Addendum entered by Pura Mendoza 05/07/25 15:30:
Per [facility] can accept patient
[facility]

Fax
Original Note:
Patient is for discharge to home today and plan is to home with visiting nurses, senior case manager met with patient and reviewed visiting nurse options referrals sent to [facility], [facility] visiting nurses, [place] visiting nurses,
[facility] and [facility], and patient has not been accepted by any visiting nurses agency, physician made aware,
Plan; Home with visiting nurses.
[2025-05-07] MEDS: LASIX 80 MG PO (16:05)
--- NOTE | 2025-05-09 14:26 | W.HF.CON ---
Heart Failure
- LV Function
Left ventricular function study result: LV Ejection fraction >/= 50%
Ejection Fraction Percentage: 65-70
- ARNI
Patient already on ARNI: No
Heart Failure ARNI Not Indicated: LV Ejection Fraction >/= 40%
- ACEI/ARB
Patient already on ACEI/ARB: No
Heart Failure ACEI/ARB Not Indicated: LV Ejection Fraction > 40%
- Beta Markus
Patient already on Evidence Based Beta Markus: No
Heart Failure Evidence Based Beta Markus Not Indicated: LV Ejection Fraction > 40%
- Mineralocorticord Receptor Antagonist
Patient already on MRA: No
Heart Failure MRA Not Indicated: LV Ejection Fraction > 40%
- SGLT-2 Inhibitor
Patient already on SGLT-2 Inhibitor: No
Heart Failure SGLT-2 Inhibitor Not Indicated: LV Ejection Fraction >40%
- Afib Anticoagulation
Patient already on Anticoagulation for Afib: Yes
- NYHA CHF Classification
NYHA CHF Classification Level: Class III - Symptoms w/ min exertion, interferes w/ nml daily activity
- ACC/AHA Stage
ACC/AHA Stage: Stage C: Symptomatic Heart Failure
== END 2025-05-07 16:56 | disposition home or self-care (01) | DRG 291 ==
LOC: 3 WEST ACU 19:40
PROVIDERS: Physician Assistant; Physician Assistant Medical; Specialist Research Data Abstracter/Coder; ADMITTING PHYSICIAN Internal Medicine; ATTENDING PHYSICIAN Internal Medicine; CONSULT PHYSICIAN Internal Medicine Infectious Disease; CONSULT PHYSICIAN Surgery; EMERGENCY PHYSICIAN Emergency Medicine; OTHER PHYSICIAN Internal Medicine Cardiovascular Disease
DX: I11.0 Hypertensive heart disease with heart failure (principal); I50.33 Acute on chronic diastolic (congestive) heart failure; J96.01 Acute respiratory failure with hypoxia; N17.9 Acute kidney failure, unspecified; E87.1 Hypo-osmolality and hyponatremia; I48.92 Unspecified atrial flutter; L03.115 Cellulitis of right lower limb; I51.3 Intracardiac thrombosis, not elsewhere classified; I42.1 Obstructive hypertrophic cardiomyopathy; I27.20 Pulmonary hypertension, unspecified; Z95.3 Presence of xenogenic heart valve; E11.9 Type 2 diabetes mellitus without complications; I25.10 Atherosclerotic heart disease of native coronary artery without angina pectoris; I49.5 Sick sinus syndrome; J44.9 Chronic obstructive pulmonary disease, unspecified; K21.9 Gastro-esophageal reflux disease without esophagitis; E78.00 Pure hypercholesterolemia, unspecified; Z87.891 Personal history of nicotine dependence; Z79.82 Long term (current) use of aspirin; Z79.84 Long term (current) use of oral hypoglycemic drugs; Z79.899 Other long term (current) drug therapy; Z79.01 Long term (current) use of anticoagulants; Z88.0 Allergy status to penicillin; E87.6 Hypokalemia; Z11.52 Encounter for screening for COVID-19
CPT/HCPCS: 71045; 80048; 80053; 82962; 83735; 83880; 84484; 85025; 85027; 85610; 86850; 86900; 86901; 87502; 87811; 93005; 93306; 94640; 96374; 97162; 97167; 99285

== ENCOUNTER → 2025-05-09 10:01 | Outpatient (REF) | payer MEDICARE, SELFPAY ==
[2025-05-09 10:57] LABS: INR 3.04; PT 31.7 Sec (11.4-14.6)
== END ==
LOC: REG 10:01
PROVIDERS: ATTENDING PHYSICIAN Internal Medicine Cardiovascular Disease
DX: Z95.3 Presence of xenogenic heart valve (principal)
CPT/HCPCS: 36415; 85610